=== PATIENT | female | born 1975 | race Caucasian/White ===

== ENCOUNTER 2020-05-19 11:59 | Outpatient (CLI) | payer OTHER, SELFPAY ==
[2020-05-19 12:17] LABS: Hematocrit 40.9 % (35.0-49.0); Hemoglobin 13.9 g/dL (12.0-15.0); Mean Corpuscular Hemoglobin 31.6 pg (27.0-31.0); Mean Platelet Volume 10.6 fl (9.2-11.8); Platelet Count Result 247 K/mm3 (150-420); White Blood Count 5.1 K/mm3 (4.8-10.8)
[2020-05-19 12:24] LABS: Basophils Absolute Auto 0.03 K/mm3 (0.00-0.10); Basophils Percent Auto 0.6 % (0.0-1.0); Eosinophils Absolute Auto 0.24 K/mm3 (0.02-0.50); Eosinophils Percent Auto 4.6 % (1.0-6.0); Immature Granulocyte Absolute 0.01 K/mm3 (0.00-0.00); Immature Granulocyte Percent A 0.2 % (0.0-0.0); Lymphocytes Absolute Auto 1.45 K/mm3 (1.10-4.50); Lymphocytes Percent Auto 27.8 % (18.0-42.0); Monocytes Absolute Auto 0.38 K/mm3 (0.10-0.90); Monocytes Percent Auto 7.3 % (2.0-11.0); Neutrophils Absolute Auto 3.1 K/mm3 (1.7-7.2); Neutrophils Percent Auto 59.5 % (50.0-70.0)
[2020-05-19 13:01] LABS: Alanine Aminotransferase 23 U/L (14-59); Albumin Level 3.8 g/dL (3.4-5.0); Alkaline Phosphatase 77 U/L (46-116); Anion Gap 10 mmol/L (8-16); Aspartate Amino Transferase 14 U/L (15-37); Bilirubin,Total 0.4 mg/dL (0.00-1.00); Blood Urea Nitrogen 11 mg/dL (7-18); Calcium 8.6 mg/dL (8.5-10.1); Carbon Dioxide 27 mmol/L (21-32); Chloride 106 mmol/L (98-108); Cholesterol 178 mg/dL (0-200); Estimated Glomerular Filt Rate > 60; Glucose 91 mg/dL (70-99); HDL Direct 55 mg/dL (40-60); Iron 80 ug/dL (50-170); LDL Cholesterol Calculated 103 mg/dL (<130); Osmolality Calculated 295 mOsm/kg (285-295); Percent Iron Saturation 31 % (12-57); Potassium 3.6 mmol/L (3.5-5.1); Sodium 143 mmol/L (136-145); Total Protein 6.5 g/dL (6.4-8.2); Triglycerides 102 mg/dL (0-150)
[2020-05-19 17:44] LABS: Platelet Estimate Adequate (Adequate)
== END 2020-05-19 12:00 | disposition home or self-care (01) ==
LOC: CHSLAB 12:01
PROVIDERS: PCP Family Medicine; Visit Provider Family Medicine
DX: M79.604 Pain in right leg (principal); M79.605 Pain in left leg; I10 Essential (primary) hypertension
CPT/HCPCS: 36415; 80053; 80061; 83540; 83550; 84443; 85025

== ENCOUNTER 2021-03-15 21:50 | Emergency (ER) | payer OTHER, SELFPAY ==
--- NOTE | ~2021-03-15 | XR_ITS ---
EXAMINATION: XR ribs RT 2V w CXR 2V DATE: 03/15/2021 22:25 INDICATION: Right chest pain. Fall. TECHNIQUE: Frontal and lateral views of the chest and 2 views of the right ribs on 3 radiographs were obtained. COMPARISON: None. FINDINGS: CHEST TWO VIEWS: Calcified right lung nodules are consistent with old granulomatous disease. No pleur al effusion or pneumothorax. The heart size is normal. RIGHT RIBS: There is no rib fracture. IMPRESSION: 1. No rib fracture. Reviewed, dictated and finalized at location A. IMPRESSION: 1. No rib fracture.
[2021-03-15 21:52] VITALS: BP 202/113; PULSE 88; RESP 16; TEMP 36.6; O2SAT 98
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
[2021-03-15 22:50] VITALS: BP 176/92; PULSE 84; RESP 16; O2SAT 98
== END 2021-03-15 22:50 | disposition home or self-care (01) ==
PROVIDERS: Emergency Provider Emergency Medicine; PCP Family Medicine
DX: S29.011A Strain of muscle and tendon of front wall of thorax, initial encounter (principal); I10 Essential (primary) hypertension; F17.210 Nicotine dependence, cigarettes, uncomplicated; V00.848A Other accident with standing micro-mobility pedestrian conveyance, initial encounter
CPT/HCPCS: 71046; 71100; 99283

== ENCOUNTER 2021-06-01 18:39 | Emergency (ER) | payer OTHER, SELFPAY ==
[2021-06-01 19:01] VITALS: BP 185/114; PULSE 87; RESP 18; TEMP 36.9; O2SAT 99
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
[2021-06-01] MEDS: DOXYCYCLINE HYCLATE 100 MG TABLET PO (19:21)
[2021-06-01] MEDS: TETANUS,DIPHTHERIA,AC PERTUSSIS ADULT 0.5 ML (ADACEL) IM (19:22)
== END 2021-06-01 19:26 | disposition home or self-care (01) ==
PROVIDERS: Emergency Provider Emergency Medicine; PCP Family Medicine
DX: S91.301A Unspecified open wound, right foot, initial encounter (principal); N89.8 Other specified noninflammatory disorders of vagina
CPT/HCPCS: 90471; 90715; 99283; A9270

== ENCOUNTER 2021-09-18 17:51 | Emergency (ER) | payer OTHER, SELFPAY ==
[2021-09-18 18:26] VITALS: BP 169/113; PULSE 90; RESP 18; TEMP 36.9; O2SAT 98
--- NOTE | 2021-09-18 19:08 | PC.NURSE ---
Report given to ALEXANDRIA Hollins
--- NOTE | 2021-09-18 19:16 | ED.WOUNDLAC ---
HPI - Wound/Laceration General Chief Complaint: Wound/Laceration Stated Complaint: scratched foot Time Seen by Provider: 09/18/21 17:53 Source: patient and RN notes reviewed Mode of arrival: ambulatory Limitations: no limitations History of Present Illness Onset (ago): day(s) (3) Context: accidental and sharp object use Associated symptoms: pain Related Data Allergies Allergy/AdvReac Type Severity Reaction Status Date / Time penicillin G Allergy Severe mouth and Verified 09/18/21 18:31 throat swell latex Allergy Intermediate Unknown Verified 09/18/21 18:31 levofloxacin [Levaquin] Allergy Intermediate Unknown Verified 09/18/21 18:31 Penicillins Allergy Intermediate Unknown Verified 09/18/21 18:31 Iodinated Contrast Media Allergy Mild sneezing, Verified 09/18/21 18:31 stuffy head Sulfa (Sulfonamide Allergy Mild Nausea and Verified 09/18/21 18:31 Antibiotics) Vomiting mupirocin Allergy Rash Verified 09/18/21 18:31 leviquin Allergy Severe throat Uncoded 06/11/21 10:59 swells Sulfonamides Allergy Intermediate Unknown Uncoded 06/11/21 10:59 Review of Systems Review of Systems: All systems reviewed & are unremarkable except as noted in HPI and below PMFSH Past Medical History Medical History Cellulitis of foot JANAE (generalized anxiety disorder) Hypertension Nicotine dependence Nicotine dependence, cigarettes, with unspecified nicotine-induced disorders Surgical History Surgical History No history of previous surgery Family History Family History Mother Hypertension COPD (chronic obstructive pulmonary disease) JANAE (generalized anxiety disorder) Social History Social History Smoking status: Current every day smoker Additional living arrangements comments: . Gender identity (if verbalized by the patient): Female Exam Const: General: no acute distress and alert Nutritional Appearance: thin Orientation/consciousness: patient oriented x3 Limitations: no limitations HENMT: Head: normal to inspection Ears: external ears normal, TM's normal bilaterally and EAC's normal General nose exam: Normal external nose present and Normal nares present Mouth: Yes moist mucous membranes Throat: posterior oropharynx normal Eyes: Conjunctivae: conjunctivae normal Pupils: Equal, round and reactive pupils present EOM: EOMs intact bilaterally Neck: Neck: normal visual inspection and no lymphadenopathy Other: neck was supple Chest: Chest palpation & inspection: normal inspection of the chest Resp: Effort & Inspection: normal respiratory effort Auscultation: clear to auscultation bilaterally Cardio: Rate: regular rate Rhythm: regular rhythm GI: GI Palp: Yes Soft to palpation and No Tenderness to palpation present (GI) Auscultation: normal bowel sounds Back/Spine/Pelvis: Back: no CVA tenderness Skin: General skin exam: normal color Rashes: no rashes Neuro: General: patient oriented x3, moves all extremities, no meningeal signs, no focal motor deficits and CN's II-XI intact bilaterally Extrem: General: no pedal edema Other: dorsal left foot 5cm superficial linear healing laceration with mild redness and minimal swelling Psych: Appearance: grossly normal and well kempt Mental Status: mental status grossly normal Affect: normal affect Attitude: cooperative Thought content: Yes Normal thought content present Course Course Emergency Course: Pt was stable in the ED with less pain Reevaluation(s) Reevaluation #1: VSS. Dressed left foot. Date: 09/18/21 Time: 18:50 Vital Signs Vital signs: Vital Signs Temperature 36.9 C 09/18/21 18:26 Pulse Rate 90 09/18/21 18:26 Respiratory Rate 18 09/18/21 18:26 Blood Pressure 169/113 H 09/18/21 18:26 Pulse O
[2021-09-18] MEDS: KETOROLAC (*BKC) 60 MG/2 ML VIAL IM (19:25)
[2021-09-18] MEDS: ACETAMINOPHEN 325 MG TABLET 650 MG PO (19:34)
[2021-09-18] MEDS: TETANUS,DIPHTHERIA,AC PERTUSSIS ADULT 0.5 ML (ADACEL) IM (19:34)
--- NOTE | 2021-09-18 20:00 | PC.NURSE ---
pt refusing an IV at this time. ALEXANDRIA Ingram attempted twice to start an IV. MD Mina informed that pt is refusing an IV at this time.
--- NOTE | 2021-09-18 20:07 | PC.NURSE ---
pt refused to allow this staff member to clean the wound on the pt's left foot. pt stated, I will clean it when I get home. I have been keeping it clean. MD Mina informed that the pt refused to allow this staff member to clean the wound on her left foot and that the pt stated that she would clean the wound when she gets home.
--- NOTE | 2021-09-18 20:11 | PC.NURSE ---
Sameer Whitaker informed this staff member that the pt has agreed to have the wound of her left foot cleaned.
[2021-09-18 20:33] VITALS: BP 181/102; PULSE 90
[2021-09-18] MEDS: cloNIDine HCL 0.2 MG TABLET PO (20:33)
[2021-09-18 21:00] VITALS: BP 158/85; PULSE 80
[2021-09-18 21:01] VITALS: BP 158/85; PULSE 80; RESP 18; TEMP 36.8; O2SAT 98
== END 2021-09-18 21:03 | disposition home or self-care (01) ==
PROVIDERS: Emergency Provider Emergency Medicine
DX: L03.116 Cellulitis of left lower limb (principal)
CPT/HCPCS: 90471; 90715; 96372; 99283; A9270; J1885

== ENCOUNTER 2022-02-13 21:12 | Observation (INO) | payer OTHER, SELFPAY ==
--- NOTE | ~2022-02-13 | CT_ITS ---
EXAMINATION: CT ankle LT wo con DATE: 02/14/2022 01:00 INDICATION: Left ankle pain and swelling. Possible septic joint. TECHNIQUE: Computed tomography (CT) of the left ankle was performed without intravenous contrast. The dose-length product was 623.80 mGy-cm. Automated exposure control and iterative reconstruction techn ique were employed. COMPARISON: Left ankle series dated 02/14/2022 FINDINGS: There is moderate soft tissue edema/swelling along the lateral aspect of the ankle. No disc rete walled off fluid collection is identified, although evaluation is limited without contrast. No f ocal erosive changes. No fracture or traumatic malalignment. No periosteal reaction. IMPRESSION: 1. No acute abnormality of the left ankle. No evidence for osteomyelitis. If there is continued clini britt concern for osteomyelitis, further evaluation with MRI recommended. 2: Moderate lateral soft tissue swelling. Reviewed, dictated and finalized at location L. IMPRESSION: 1. No acute abnormality of the left ankle. No evidence for osteomyelitis. If th ere is continued clinical concern for osteomyelitis, further evaluation with MR I recommended. 2: Moderate lateral soft tissue swelling.
--- NOTE | ~2022-02-13 | XR_ITS ---
XR ankle LT min 3V DATE: 02/13/2022 21:50 INDICATION: Swelling ankle injury TECHNIQUE: 4 views COMPARISON: None FINDINGS: There is moderately prominent lateral soft tissue swelling. No fracture or dislocation of the ankle or disruption of the ankle mortise. Plantar calcaneal enthesopathy. IMPRESSION: Lateral soft tissue swelling; no fracture or dislocation of the ankle or disruption of an kle mortise Reviewed, dictated and finalized at location A. IMPRESSION: Lateral soft tissue swelling; no fracture or dislocation of the ank le or disruption of ankle mortise
[2022-02-13 21:16] VITALS: BP 198/97; PULSE 100; RESP 22; TEMP 37.5; O2SAT 100
--- NOTE | 2022-02-13 21:37 | ED.LOWEXIN ---
HPI - Extremity Injury (Lower) General Chief Complaint: Extremity Injury, Lower <CORINA Roblero Last Filed: 02/14/22 02:50> Stated Complaint: left ankle pain <CORINA Roblero Last Filed: 02/14/22 02:50> Time Seen by Provider: 02/13/22 21:14 <CORINA Roblero Last Filed: 02/14/22 02:50> History of Present Illness HPI Narrative: Patient is a 46-year-old female here for evaluation of left ankle pain x 1 day. Patient states that she got her foot stuck in a door about 3 weeks ago that left a scrape on her medial ankle. States that she has been ambulatory since that incident, but over the past 24 hours, the ankle has become swollen, irritated, and she cannot bear weight on the foot. States that even slight movement is unbearable. She has been taking ibuprofen without relief. Reports chills but denies nausea, vomiting. she is not a diabetic, denies IV drug use. <CORINA Roblero Last Filed: 02/14/22 02:50> Related Data Home Medications: Home Medications Medication Instructions Recorded Confirmed albuterol sulfate 90 mcg/actuation 90 mcg inhalation Q4-6H PRN 02/14/22 02/14/22 aerosol inhaler Shortness Of Breath Or Wheezing lisinopril 40 mg tablet 40 mg PO DAILY 02/14/22 02/14/22 <CORINA Roblero Last Filed: 02/14/22 02:50> Allergies/Adverse Reactions: Allergies Allergy/AdvReac Type Severity Reaction Status Date / Time penicillin G Allergy Severe mouth and Verified 02/14/22 02:56 throat swell latex Allergy Intermediate Unknown Verified 02/14/22 02:56 levofloxacin [Levaquin] Allergy Intermediate Unknown Verified 02/14/22 02:56 Penicillins Allergy Intermediate Unknown Verified 02/14/22 02:56 Iodinated Contrast Media Allergy Mild sneezing, Verified 02/14/22 02:56 stuffy head mupirocin Allergy Rash Verified 02/14/22 02:56 Sulfa (Sulfonamide AdvReac Mild Nausea and Verified 02/14/22 02:59 Antibiotics) Vomiting <Maria Del Carmen Israel PA-C - Last Filed: 02/14/22 02:50> Review of Systems Review of Systems: Gen: Reports chills Eyes: Denies eye pain or visual change ENT: Denies congestion Respiratory: Denies shortness of breath or cough CV: Denies chest pain or palpitations GI: Denies abdominal pain nausea, emesis or diarrhea denies burning, urgency, frequency or hematuria Musculoskeletal: Reports left ankle pain. Neuro: Denies numbness, tingling, weakness or focal weakness Skin: Reports redness Except as documented, all other systems reviewed and negative <Maria Del Carmen Israel PA-C - Last Filed: 02/14/22 02:50> [facility] Past Medical History Medical History: Medical History Cellulitis of foot JANAE (generalized anxiety disorder) Hypertension Nicotine dependence Nicotine dependence, cigarettes, with unspecified nicotine-induced disorders <Maria Del Carmen Israel PA-C - Last Filed: 02/14/22 02:50> Surgical History Surgical History: Surgical History No history of previous surgery <Maria Del Carmen Israel PA-C - Last Filed: 02/14/22 02:50> Family History Family History: Family History (Updated 02/14/22 @ 02:20 by Maikol Azar RN) Mother JANAE (generalized anxiety disorder) COPD (chronic obstructive pulmonary disease) Hypertension Father Hypertension Lung cancer Bone cancer Brain tumor <Maria Del Carmen Israel PA-C - Last Filed: 02/14/22 02:50> Social History Social History: Social History Smoking packs per day: 1 Smoking cigarettes per day: 20.0 Years smoked: 26 Smoking pack-years: 26.00 Smoking status: Current every day smoker Tobacco type: cigarettes Second hand tobacco smoke exposure: Yes Alcohol intake: current Drinks per week: 1 Substance use: current Substance
[2022-02-13 22:02] LABS: Basophils Percent Auto 0.2 % (0.2-1.2); Eosinophils Absolute Auto 0.1 K/mm3 (0-0.3); Eosinophils Percent Auto 0.7 % (0-4.4); Hematocrit 45.7 % (37.0-47.0); Hemoglobin 15.4 g/dL (12.0-15.0); Immature Granulocyte Absolute 0.06 K/mm3 (0.00-0.031); Immature Granulocyte Percent A 0.4 % (0-0.5); Lymphocytes Absolute Auto 0.75 K/mm3 (0.9-3.2); Lymphocytes Percent Auto 4.5 % (18.3-44.2); Mean Corpuscular HGB Conc 33.7 g/dl (32-36); Mean Corpuscular Hemoglobin 30.9 pg (26-34); Mean Corpuscular Volume 91.6 fl (80-100); Mean Platelet Volume 10.7 fl (7.4-10.4); Monocytes Absolute Auto 1.1 K/mm3 (0.1-0.6); Monocytes Percent Auto 6.5 % (2.6-8.5); Neutrophils Absolute Auto 14.7 K/mm3 (1.3-6.7); Neutrophils Percent Auto 87.7 % (45.5-73.1); Platelet Count Result 246 k/mm3 (150-375); Red Blood Count 4.99 M/mm3 (4.2-5.4); Red Cell Distribution Width 12.8 % (11.5-14.5); White Blood Count 16.7 K/mm3 (4.5-10.0)
[2022-02-13 22:09] LABS: Lactic Acid Reflex 2.1 mmol/L (0.7-2.0)
[2022-02-13 22:14] LABS: Alanine Aminotransferase 15 U/L (6-35); Albumin Level 3.9 g/dL (3.5-5.1); Alkaline Phosphatase 88 U/L (38-126); Anion Gap 8 mmol/L (8-16); Aspartate Amino Transferase 21 U/L (14-36); Bilirubin,Total 0.4 mg/dL (0.2-1.3); Blood Urea Nitrogen 14 mg/dL (7-17); CRP 2.6 mg/dL (<1.0); Calcium 8.2 mg/dL (8.4-10.2); Carbon Dioxide 22 mmol/L (22-30); Chloride 106 mmol/L (98-107); Estimated CRCL calculation 69 ml/min; Estimated Glomerular Filt Rate > 60; Glucose 132 mg/dL (65-110); Potassium 3.4 mmol/L (3.4-5.0); Sodium 136 mmol/L (137-145)
[2022-02-13] MEDS: SODIUM CHLORIDE 0.9% IV 1,000 ML 999 ML IV CONT (22:34)
[2022-02-13 22:37] LABS: Erythrocyte Sedimentation Rate 10 mm/hr (0-20)
[2022-02-14] VITALS (8 sets, daily range): BP systolic 134–184; BP diastolic 85–99; PULSE 73–94; RESP 16–18; TEMP 37.2–37.7; O2SAT 98–100; BMI 21.6
[2022-02-14] MEDS: SODIUM CHLORIDE 0.9% IV 1,000 ML 999 ML IV CONT (00:35)
[2022-02-14 00:46] LABS: SARS-CoV-2 RNA PCR Negative
[2022-02-14 00:58] LABS: Reflex Lactic Acid Yes or No Add Lactic
[2022-02-14 01:37] LABS: Lactic Acid 0.7 mmol/L (0.7-2.0)
--- NOTE | 2022-02-14 01:52 | PC.NURSE ---
0152: Received report from ED nurse Cony. Discussed elevated blood pressure and why lisinopril was discontinued. ED nurse said pt already took lisinopril blood pressure medication today and the hospitalists in ED are not concerned with elevated blood pressure at this time.
--- NOTE | 2022-02-14 02:09 | PC.NURSE ---
This patient, Elham Bennett, was admitted to 3 [facility] Surg Room 319-01. Patient/family oriented to hospital policies and general routines including ID bracelet, bed and alarms, visiting hours, pain management, procedures, bathroom and other care routines, personal items, smoking policy, room service/diet, and visiting hours. Information on how to activate the Rapid Response Team has been discussed. Patient/Family are encouraged to report perceived risks to care and to ask questions if they do not understand what they are told or what they should do.
[2022-02-14] MEDS: KETOROLAC 30 MG/ML VIAL (*BKC) IV PUSH ×2 (03:23→10:08)
[2022-02-14] MEDS: SODIUM CHLORIDE 0.9% IV 1,000 ML 125 ML IV CONT (03:23)
[2022-02-14] MEDS: hydrALAZINE HCL 20 MG/ML VIAL 10 MG IV PUSH (05:23)
--- NOTE | 2022-02-14 05:45 | PM.IMHP ---
H&P: HPI History of Present Illness Date/Time: 02/14/22 05:45 Chief Complaint: Left ankle pain Narrative: 46-year-old female with past medical history of essential hypertension who presented to the ER with left ankle pain. The patient reports that she slammed her ankle into a door at home 2 weeks ago. She had a small abrasion to the ankle at that time. She reports that for 5 days ago she began having some vague discomfort in her ankle. Then, on the she was using a riding lawn more and at that time started having increased pain and swelling to her lower extremity. The pain became so bad on the she could not bear weight or av any passive range of motion of her ankle. She had some erythema that it started on the and worsened on the . He associated swelling had also increased. She has not noticed any drainage from the wound. She denies any fevers but does note that the area is warm. Pain is worse with touching the area. She reported that after receiving Toradol last night it was her 1st time having complete pain relief from the ankle. However the pain returned when I was manipulating and touching the skin on the lateral ankle. She had had prior infection of the right lateral foot a couple of years ago after a laceration that took a while to heal. She denies any known history of MRSA infections. In the ER patient's blood pressures were noted to be markedly elevated. At the time of my evaluation the patient admits that she has not taken her blood pressure meds in the last 3-4 weeks. She reports that she ran out of refills. Last time she tried to go to her primary care physician she had run out of her state age. She now has a new Medicaid card but her physician will not accept her new Medicaid program card. A she has not found a new primary care physician and has difficulty with transportation. She denies any headaches or vision changes. She states that she has just given up. During my evaluation the patient became quite tearful and she stated that since her 3 years ago she is depressed. Her daughter has moved out and moved in with her grandparents next door. 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 She is under some multiple social stressors and states that she will not have a job after next month because her parents are moving to assisted living. The patient continues to smoke a pack of cigarettes per day and has no intention of quitting smoking. She has successfully quit 2 other times when she was with her children. She does report frequent smoker's cough but denies any shortness of breath or chest pain. She has not been vaccinated against COVID. Her COVID PCR in the ER was negative. She denies any fevers. She denies any decreased appetite, nausea, vomiting, no diarrhea or changes in bowel habits. Review of Systems Review of Systems: 12 systems were reviewed with pertinent positives and negatives per HPI. Except as documented in the HPI, all other systems were reviewed and are negative. [facility] Past Medical History Medical History (Updated 02/14/22 @ 08:17 by Liv Morin DO) Cellulitis of foot Depression (11/08/15) JANAE (generalized anxiety disorder) Hypertension Nicotine dependence, cigarettes, with unspecified nicotine-induced disorders Surgical History Surgical History (Updated 02/14/22 @ 08:05 by Liv Morin DO) History of endometrial ablation History of tonsillectomy and adenoidectomy Family History Family History Mother JANAE (generalized anxiety disorder) COPD (chronic obstructive pulmonary disease) Hypertension Father Hypertension Lung cancer Bone cancer Brain tumor Social History Social History (Updated 02/14/22 @ 08:07 by Liv Morin DO) Smoking packs per day: 1 Smoking cigarettes per day: 20.0 Years smoked: 26 Smoking pack
[2022-02-14 06:21] LABS: Hematocrit 42.9 % (37.0-47.0); Hemoglobin 14.9 g/dL (12.0-15.0); Mean Corpuscular HGB Conc 34.7 g/dl (32-36); Mean Corpuscular Hemoglobin 31.4 pg (26-34); Mean Corpuscular Volume 90.5 fl (80-100); Mean Platelet Volume 10.8 fl (7.4-10.4); Platelet Count Result 193 k/mm3 (150-375); Red Blood Count 4.74 M/mm3 (4.2-5.4); Red Cell Distribution Width 12.7 % (11.5-14.5); White Blood Count 15.2 K/mm3 (4.5-10.0)
[2022-02-14 06:28] LABS: Anion Gap 5 mmol/L (8-16); Blood Urea Nitrogen 9 mg/dL (7-17); Calcium 7.5 mg/dL (8.4-10.2); Carbon Dioxide 19 mmol/L (22-30); Chloride 110 mmol/L (98-107); Estimated CRCL calculation 90 ml/min; Estimated Glomerular Filt Rate > 60; Glucose 122 mg/dL (65-110); Sodium 134 mmol/L (137-145)
[2022-02-14] MEDS: POTASSIUM CHLORIDE 20 MEQ PACKET (FOR LIQUID) 40 MEQ PO (08:52)
[2022-02-14] MEDS: lisinopriL 20 MG TABLET 40 MG PO (08:52)
[2022-02-14] MEDS: ENOXAPARIN 40 MG/0.4 ML SYRINGE SUB-Q (08:53)
--- NOTE | 2022-02-14 10:42 | PM.IMPN ---
Progress Note: A&P Assessment and Plan (1) Cellulitis of left ankle: Code(s): L03.116 - Cellulitis of left lower limb Status: Acute Assessment and Plan: On empiric antibiotic therapy with vancomycin.? Orthopedic surgery has been consulted for evaluation. CT without discrete fluid collection.? Pain medications with IV toradol. She is refusing Morphine. Will add gabapentin 100 mg TID. Elevate LE for swelling control. Warm compress to left ankle for pain and potentially withdraw purulent discharge. (2) Sepsis: Qualifiers: Sepsis acute organ dysfunction status: without acute organ dysfunction Sepsis type: sepsis due to unspecified organism Qualified Code(s): A41.9 - Sepsis, unspecified organism Code(s): A41.9 - Sepsis, unspecified organism Status: Acute Assessment and Plan: Sepsis criteria met on admission with tachycardia, tachypnea, leukocytosis and lactic acidosis.? Lactic acidosis has resolved as well his tachycardia and tachypnea.? Blood cultures are pending.? Continue antibiotic therapy with vancomycin. (3) Uncontrolled hypertension: Code(s): I10 - Essential (primary) hypertension Status: Acute Assessment and Plan: Continued on lisinopril. PRN hydralazine for SBP>170. May have some pain component. (4) Acute hypokalemia: Code(s): E87.6 - Hypokalemia Status: Acute Assessment and Plan: Potassium supplementation with 40 mEq p.o. x1 today. Repeat BMP tomorrow and supplement as needed. (5) Depression: Onset Date: 11/08/15 Qualifiers: Depression Type: major depressive disorder Major depression recurrence: unspecified whether recurrent Active/Remission status: currently active Major depression episode severity: severe Psychotic features: without psychotic features Qualified Code(s): F32.2 - Major depressive disorder, single episode, severe without psychotic features Code(s): F32.A - Depression, unspecified Status: Acute Assessment and Plan: Antidepressant therapy was offered to the patient.? She states that she would him know weight of follow-up with a counselor or primary care provider her regarding continuing depression medications as she has no transportation. May be worse secondary to pain. Plan Disposition: Home when medically stable. Estimated LOS: 3 days CODE STATUS: FULL CODE Time Spent With Patient Time with patient: 15 - 25 minutes Subjective Date/time seen: 02/14/22 10:42 Patient c/o severe pain to left ankle. It is severe when touched. She is notably tearful and restless in bed, grabbing at her left leg. She reports Toradol helps her pain and does not want to use any narcotics. Review of Systems Review of Systems: All systems reviewed & are unremarkable except as noted in HPI and below Exam Narrative: General: Moderate distress.? Well-developed adult female lying in bed holding onto left leg. Mental Status/Psych: Awake, alert and oriented to person and place with clear speech. Anxious mood and affect. Cooperative with examination. Skin: Fair, warm, and dry. Left lateral malleolus with irregularly shaped, circular lesion, wound bed with black/brown eschar, surrounding skin with moderate erythema, very tender and hot to touch. +3 nonpitting edema to ankle and foot. Medial mid-lower extremity with 2 superficial abrasions with mild surrounding erythema. HEENT: Normocephalic. Conjunctivae are clear. Sclera is non-icteric. EOM intact. PERRL. Grossly normal hearing. Oral mucosa pink and moist. Tongue midline. Oropharynx within normal limits. Neck: Supple. Trachea midline. No JVD. Heart: S1 and S2 regular rate and rhythm. No murmurs, gallops, or rubs auscultated. Chest: Respirations even and unlabored. Lung sounds are clear to auscultation in all lobes bilaterally without wheezes, rhonchi, or rales. Abdomen: Soft, round and non-tender to palpation.?
[2022-02-14] MEDS: GABAPENTIN 100 MG CAPSULE PO ×2 (12:33→17:04)
--- NOTE | 2022-02-14 14:11 | PM.CNOR ---
Assessment and Plan Assessment and plan (1) Cellulitis of left ankle: Code(s): L03.116 - Cellulitis of left lower limb Status: Acute (2) Sepsis: Qualifiers: Sepsis acute organ dysfunction status: without acute organ dysfunction Sepsis type: sepsis due to unspecified organism Qualified Code(s): A41.9 - Sepsis, unspecified organism Code(s): A41.9 - Sepsis, unspecified organism Status: Acute Plan Cellulitis left lower extremity. Soft tissue crush injury 1 week ago. Discussed the case with the hospitalist. I recommend continued IV antibiotics and elevation. No surgery indicated. She may bear full weight. Will continue to follow. History of Present Illness HPI Consult date: 02/14/22 Chief complaint: cellulitis Narrative: 46-year-old female presents with exquisite left ankle pain. Symptoms began one week ago. Her leg was crushed and trapped in a door. She had abrasions medially and laterally at the malleoli. She was able to bear full weight. Pain was well controlled. She remained quite active. Yesterday she was mowing the grass and felt dramatic increase in pain. This increased overnight. She was admitted through the emergency room with exquisite ankle pain redness and swelling. Infection markers were elevated. Sepsis criteria met. Tachycardia, tachypnea, leukocytosis and lactic acidosis. Blood cultures are pending. Patient started on vancomycin. She has multiple antibiotic allergies. Review of Systems Review of Systems: 12 systems were reviewed with pertinent positives and negatives per HPI. Except as documented in the HPI, all other systems were reviewed and are negative. Smoking history. Hypertension. [facility] Past Medical History Medical History (Updated 02/14/22 @ 08:17 by Liv Morin DO) Cellulitis of foot Depression (11/08/15) JANAE (generalized anxiety disorder) Hypertension Nicotine dependence, cigarettes, with unspecified nicotine-induced disorders Surgical History Surgical History (Updated 02/14/22 @ 08:05 by Liv Morin DO) History of endometrial ablation History of tonsillectomy and adenoidectomy Family History Family History Mother JANAE (generalized anxiety disorder) COPD (chronic obstructive pulmonary disease) Hypertension Father Hypertension Lung cancer Bone cancer Brain tumor Social History Social History (Updated 02/14/22 @ 08:07 by Liv Morin DO) Smoking packs per day: 1 Smoking cigarettes per day: 20.0 Years smoked: 26 Smoking pack-years: 26.00 Smoking status: Current every day smoker Tobacco type: cigarettes Second hand tobacco smoke exposure: Yes Additional smoking assessment comments: She has smoked 1 pack of cigarettes per day since age 18. Alcohol intake: current Drinks per week: 1 Substance use: current Substance use type: does not use Living arrangements: alone Additional living arrangements comments: She is been since 2019. She has 2 children. Her daughter moved out when her and her daughter now lives with her grandparents. 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 Her parents are planning to moved to assisted living March 2022. Gender identity (if verbalized by the patient): Female Spiritual care concerns: No Meds Home Medications and Allergies Home Medications Medication Instructions Recorded Confirmed Type albuterol sulfate 90 mcg/actuation 90 mcg inhalation Q4-6H PRN 02/14/22 02/14/22 History aerosol inhaler Shortness Of Breath Or Wheezing lisinopril 40 mg tablet 40 mg PO DAILY 02/14/22 02/14/22 History Allergies Allergy/AdvReac Type Severity Reaction Status Date / Time penicillin G Allergy Severe mouth and Verified 02/14/22 02:56 throat swell latex Allergy Intermediate Unknown Verified 02/14/22 02:56 levofloxacin [Levaquin] Aller
[2022-02-15] VITALS (7 sets, daily range): BP systolic 119–147; BP diastolic 77–79; PULSE 52–72; RESP 14–18; TEMP 36.8–37.9; O2SAT 96–100
[2022-02-15] MEDS: MORPHINE SULFATE (*CRX) 2 MG/ML INJ IV PUSH (03:24)
[2022-02-15] MEDS: ACETAMINOPHEN 325 MG TABLET 650 MG PO ×2 (05:31→17:46)
[2022-02-15 06:49] LABS: Basophils Percent Auto 0.2 % (0.2-1.2); Eosinophils Absolute Auto 0.2 K/mm3 (0-0.3); Eosinophils Percent Auto 1.2 % (0-4.4); Hematocrit 40.2 % (37.0-47.0); Immature Granulocyte Absolute 0.08 K/mm3 (0.00-0.031); Immature Granulocyte Percent A 0.6 % (0-0.5); Lymphocytes Absolute Auto 0.92 K/mm3 (0.9-3.2); Lymphocytes Percent Auto 6.7 % (18.3-44.2); Mean Corpuscular HGB Conc 34.8 g/dl (32-36); Mean Corpuscular Hemoglobin 31.6 pg (26-34); Mean Corpuscular Volume 90.7 fl (80-100); Mean Platelet Volume 10.9 fl (7.4-10.4); Monocytes Absolute Auto 1.4 K/mm3 (0.1-0.6); Monocytes Percent Auto 9.9 % (2.6-8.5); Neutrophils Absolute Auto 11.2 K/mm3 (1.3-6.7); Neutrophils Percent Auto 81.4 % (45.5-73.1); Platelet Count Result 179 k/mm3 (150-375); Red Blood Count 4.43 M/mm3 (4.2-5.4); White Blood Count 13.8 K/mm3 (4.5-10.0)
[2022-02-15 06:58] LABS: Anion Gap 3 mmol/L (8-16); Blood Urea Nitrogen 9 mg/dL (7-17); Calcium 7.7 mg/dL (8.4-10.2); Carbon Dioxide 24 mmol/L (22-30); Chloride 107 mmol/L (98-107); Estimated CRCL calculation 78 ml/min; Estimated Glomerular Filt Rate > 60; Glucose 124 mg/dL (65-110); Potassium 3.3 mmol/L (3.4-5.0); Sodium 134 mmol/L (137-145)
[2022-02-15] MEDS: lisinopriL 20 MG TABLET 40 MG PO (08:22)
[2022-02-15] MEDS: GABAPENTIN 100 MG CAPSULE PO ×3 (08:22→16:34)
--- NOTE | 2022-02-15 10:20 | PM.IMPN ---
Progress Note: A&P Assessment and Plan (1) Cellulitis of left ankle: Code(s): L03.116 - Cellulitis of left lower limb Status: Acute Assessment and Plan: On empiric antibiotic therapy with vancomycin.?Pharmacy to dose. Trough 6 today. Orthopedic surgery has been consulted for evaluation and no orthopedic surgery indicated. CT without discrete fluid collection noted.? Pain medications with IV toradol, gabapentin 100 mg TID, and PRN morphine Elevate LE for swelling control. Warm compress to left ankle for pain and potentially withdraw purulent discharge. (2) Sepsis: Qualifiers: Sepsis acute organ dysfunction status: without acute organ dysfunction Sepsis type: sepsis due to unspecified organism Qualified Code(s): A41.9 - Sepsis, unspecified organism Code(s): A41.9 - Sepsis, unspecified organism Status: Acute Assessment and Plan: Sepsis criteria met on admission with tachycardia, tachypnea, leukocytosis and lactic acidosis.? Lactic acidosis has resolved as well his tachycardia and tachypnea.? Blood cultures are pending.? Continue antibiotic therapy with vancomycin. (3) Uncontrolled hypertension: Code(s): I10 - Essential (primary) hypertension Status: Acute Assessment and Plan: Continued on lisinopril. PRN hydralazine for SBP>170. May have some pain component. BP improved today. (4) Acute hypokalemia: Code(s): E87.6 - Hypokalemia Status: Acute Assessment and Plan: Potassium supplementation with 40 mEq p.o. x1 today. Repeat BMP tomorrow and supplement as needed. (5) Depression: Onset Date: 11/08/15 Qualifiers: Active/Remission status: currently active Depression Type: major depressive disorder Major depression episode severity: severe Major depression recurrence: unspecified whether recurrent Psychotic features: without psychotic features Qualified Code(s): F32.2 - Major depressive disorder, single episode, severe without psychotic features Code(s): F32.A - Depression, unspecified Status: Acute Assessment and Plan: Antidepressant therapy was offered to the patient.? She states that she would him know weight of follow-up with a counselor or primary care provider her regarding continuing depression medications as she has no transportation. May be worse secondary to pain. Consult care coordination for community resources. Plan Disposition: Home when medically stable. Estimated LOS: 3 days CODE STATUS: FULL CODE Time Spent With Patient Time with patient: 15 - 25 minutes Subjective Date/time seen: 02/15/22 10:20 Patient continues to complain of right leg pain. She reports temp 100.2F this morning with some sweating following. She is tearful and wants to go home today. She reports some family issues that she needs to take care of. We discussed in length the concern for worsening infection and need for IV antibiotics at this time. Review of Systems Review of Systems: All systems reviewed & are unremarkable except as noted in HPI and below Exam Narrative: General: Moderate distress.? Well-developed adult female lying in bed. Mental Status/Psych: Awake, alert and oriented to person and place with clear speech. Anxious mood and affect. Tearful. Skin: Fair, warm, and dry. Left lateral malleolus with irregularly shaped, circular lesion, wound bed with yellow/brown eschar, surrounding skin with moderate erythema, very tender and hot to touch. +2 nonpitting edema to ankle and foot. Medial mid-lower extremity with 2 superficial abrasions without erythema. HEENT: Normocephalic. Sclera is non-icteric. Pupils equal and round. Grossly normal hearing. Oral mucosa pink and moist. Tongue midline. Neck: Supple. Trachea midline. No JVD. Heart: S1 and S2 regular rate and rhythm. No murmurs, gallops, or rubs auscultated. Chest: Respirations even and unlabored. Lung sounds a
--- NOTE | 2022-02-15 11:49 | PC.NURSE ---
vancomycin trough 6.0
--- NOTE | 2022-02-15 11:49 | PC.NURSE ---
informed pharmacist that vancomycin trough resulted
[2022-02-15] MEDS: POTASSIUM CHLORIDE 20 MEQ TABLET 40 MEQ PO (16:34)
--- NOTE | 2022-02-15 18:08 | PC.NURSE ---
tums prn and protonix ordered for pt per MD Nathan, reported pt c/o burning and cramping in abdominal area, stated stress ulcer.
[2022-02-16 05:41] VITALS: BP 148/81; PULSE 73; RESP 18; TEMP 36.7; O2SAT 99
[2022-02-16 06:42] LABS: Basophils Percent Auto 0.3 % (0.2-1.2); Eosinophils Absolute Auto 0.3 K/mm3 (0-0.3); Eosinophils Percent Auto 2.7 % (0-4.4); Hematocrit 43.4 % (37.0-47.0); Hemoglobin 14.2 g/dL (12.0-15.0); Immature Granulocyte Absolute 0.04 K/mm3 (0.00-0.031); Immature Granulocyte Percent A 0.4 % (0-0.5); Lymphocytes Absolute Auto 0.88 K/mm3 (0.9-3.2); Lymphocytes Percent Auto 8.7 % (18.3-44.2); Mean Corpuscular HGB Conc 32.7 g/dl (32-36); Mean Corpuscular Hemoglobin 30.8 pg (26-34); Mean Corpuscular Volume 94.1 fl (80-100); Mean Platelet Volume 10.9 fl (7.4-10.4); Monocytes Absolute Auto 0.7 K/mm3 (0.1-0.6); Neutrophils Absolute Auto 8.2 K/mm3 (1.3-6.7); Neutrophils Percent Auto 80.9 % (45.5-73.1); Platelet Count Result 205 k/mm3 (150-375); Red Blood Count 4.61 M/mm3 (4.2-5.4); White Blood Count 10.1 K/mm3 (4.5-10.0)
[2022-02-16 06:56] LABS: Anion Gap 5 mmol/L (8-16); Blood Urea Nitrogen 10 mg/dL (7-17); Calcium 8.3 mg/dL (8.4-10.2); Carbon Dioxide 24 mmol/L (22-30); Chloride 109 mmol/L (98-107); Estimated CRCL calculation 90 ml/min; Estimated Glomerular Filt Rate > 60; Glucose 112 mg/dL (65-110); Potassium 3.7 mmol/L (3.4-5.0); Sodium 138 mmol/L (137-145)
[2022-02-16 07:50] VITALS: PULSE 73; RESP 18; O2SAT 99
[2022-02-16] MEDS: lisinopriL 20 MG TABLET 40 MG PO (08:21)
[2022-02-16] MEDS: PANTOPRAZOLE SODIUM IV 40 MG VIAL IV PUSH (08:21)
[2022-02-16] MEDS: GABAPENTIN 100 MG CAPSULE PO (08:21)
[2022-02-16] MEDS: ENOXAPARIN 40 MG/0.4 ML SYRINGE SUB-Q (08:24)
--- NOTE | 2022-02-16 08:47 | PC.NURSE ---
called Claire, informed pt inquiring about discharge. Claire to round on pt, possible discharge this afternoon.
--- NOTE | 2022-02-16 10:22 | PM.DS ---
DS: Admitting Diagnosis Discharge Date 02/16/2022 1027 Admitting Diagnosis Left ankle cellulitis Sepsis Uncontrolled hypertension Nicotine dependence Depression Hypokalemia DS: Discharge Diagnosis Discharge Diagnosis (1) Cellulitis of left ankle: Code(s): L03.116 - Cellulitis of left lower limb Status: Acute Assessment and Plan: Started on IV vancomycin with pharmacy to dose based on renal function. WBC 15 on admission. Orthopedic surgery has been consulted for evaluation and no orthopedic surgery indicated. CT without discrete fluid collection noted.? Pain was treated with PRN PO tylenol, IV toradol PRN, gabapentin 100 mg TID scheduled, and PRN morphine IV. She did not want to take narcotics. Vancomycin trough prior to fourth dose was low at 6. Her dose was increased. Nonpharmacology treatment included elevatation of BLE and warm compress to left ankle for pain and potentially withdraw purulent discharge. She had low-grade fever 100.2F on 02/15/22, but was afebrile on 02/16. WBC downtrended 15 to 13 to 10. 7 transitioned to doxycycline 100 mg PO BID x 12 more days. No collectable wound drainage could be obtained for culture. (2) Sepsis: Qualifiers: Sepsis acute organ dysfunction status: without acute organ dysfunction Sepsis type: sepsis due to unspecified organism Qualified Code(s): A41.9 - Sepsis, unspecified organism Code(s): A41.9 - Sepsis, unspecified organism Status: Acute Assessment and Plan: Sepsis criteria met on admission with tachycardia, tachypnea, leukocytosis and lactic acidosis on admission.? Lactic acidosis resolved, along with tachycardia and tachypnea following fluid administration. Blood cultures were negative x 2 bottles for >48 hours. Continue antibiotic therapy with vancomycin. (3) Uncontrolled hypertension: Code(s): I10 - Essential (primary) hypertension Status: Acute Assessment and Plan: Acute on chronic. Continued on lisinopril. BP was initially 150-170/90s. She received 1 dose of IV hydralazine inpatient. Pain was thought to be a component of hypertension, as well as patient's non-compliance with medications. BP improved to 130-140s/70-80s (4) Acute hypokalemia: Code(s): E87.6 - Hypokalemia Status: Acute Assessment and Plan: Potassium 3.0 on admission. She received 2 doses of KCl 40 mEq p.o. on 02/14/22 and 02/15/22. Potassium was stable on discharge. (5) Depression: Onset Date: 11/08/15 Qualifiers: Active/Remission status: currently active Depression Type: major depressive disorder Major depression episode severity: severe Major depression recurrence: unspecified whether recurrent Psychotic features: without psychotic features Qualified Code(s): F32.2 - Major depressive disorder, single episode, severe without psychotic features Code(s): F32.A - Depression, unspecified Status: Acute Assessment and Plan: Patient was very tearful and emotional throughout her hospital stay. She was eager for discharge to take care of social and financial concerns related to her parents moving and her belongings in [her] parent's basement that would be auctioned off if not collected as soon as possible. She was also tearful about her , unemployment and daughter moving out. Antidepressant therapy was offered to the patient and refused.?She wanted to follow-up with a counselor or primary care provider later. Care coordination gave the patient community resources on local counseling services. DS: Summary Hospital Course Reason for hospitalization: Left ankle pain Hospital Course: Elham Bennett is a 46-year-old female with past medical history of essential hypertension who presented to the ER with c/o left ankle pain.? She reported slamming her ankle into a door at home approximately 2 weeks ago.? She had a small abrasion t
--- NOTE | 2022-02-16 10:40 | PC.NURSE ---
pt discharging, awaiting ride, discharge paperwork explained, IV removed.
== END 2022-02-16 10:50 | disposition home or self-care (01) ==
LOC: ANHED 02-14 01:25 → ANH3MEDSUR 02-14 03:59
PROVIDERS: Nurse Practitioner Family; Physician Assistant; Admitting Provider Internal Medicine; Emergency Provider Emergency Medicine; Visit Provider Internal Medicine
DX: A41.9 Sepsis, unspecified organism (principal); L03.116 Cellulitis of left lower limb; E87.6 Hypokalemia; I10 Essential (primary) hypertension; F41.1 Generalized anxiety disorder; F32.A Depression, unspecified; F17.210 Nicotine dependence, cigarettes, uncomplicated; Z79.51 Long term (current) use of inhaled steroids; Z20.822 Contact with and (suspected) exposure to COVID-19
CPT/HCPCS: 36415; 73610; 73700; 80048; 80053; 80202; 83605; 85025; 85027; 85652; 86140; 87040; 96361; 96365; 96372; 96374; 96375; 96376; 99285; A9270; C9113; C9803; G0378; G0379; J0131; J0360; J1650; J1885; J2270; J3370; J7030; U0003; U0005

== ENCOUNTER 2022-03-05 21:43 | Emergency (ER) | payer OTHER, SELFPAY ==
[2022-03-05] VITALS (7 sets, daily range): BP systolic 164–193; BP diastolic 89–109; PULSE 80–98; RESP 17–19; TEMP 36.9; O2SAT 94–100
--- NOTE | 2022-03-05 22:07 | ED.WOUNDLAC ---
HPI - Wound/Laceration General Chief Complaint: Wound/Laceration Stated Complaint: L ANKLE OPEN SORE Time Seen by Provider: 03/05/22 22:08 Source: patient History of Present Illness HPI narrative: 46-year-old female with a history hypertension, depression, was admitted in [facility] from 02/14/22 to 02/16/2022 For cellulitis of the left ankle for which she was treated with IV vancomycin. The patient was discharged on 02/16 on oral doxycycline and antibiotic ointment. She presents to the ER with erythema, swelling and ulceration of left lateral ankle. the wound started as as injury when her foot got caught between 2 objects. She is noted to elevated blood pressure. She has not been taking her blood pressure medications. Onset (ago): day(s) ( She has had cellulitis since 02/12/2022) Extremity Location: Left: ankle ( over the left lateral malleolus) Body four view annotation: 1. cellulitis over the left lateral ankle with ulceration Patient tetanus UTD: Yes Context: accidental Associated symptoms: pain Treatments prior to arrival: other ( Just completed doxycycline and is currently on antibiotic cream) Related Data Home Medications Medication Instructions Recorded Confirmed albuterol sulfate 90 mcg/actuation 90 mcg inhalation Q4-6H PRN 02/14/22 03/05/22 aerosol inhaler Shortness Of Breath Or Wheezing lisinopril 40 mg tablet 40 mg PO DAILY 02/14/22 03/05/22 Allergies Allergy/AdvReac Type Severity Reaction Status Date / Time penicillin G Allergy Severe mouth and Verified 03/05/22 22:07 throat swell latex Allergy Intermediate Unknown Verified 03/05/22 22:07 levofloxacin [Levaquin] Allergy Intermediate Itching Verified 03/05/22 22:07 Iodinated Contrast Media Allergy Mild sneezing, Verified 03/05/22 22:07 stuffy head mupirocin Allergy Rash Verified 03/05/22 22:07 Sulfa (Sulfonamide AdvReac Mild Nausea and Verified 03/05/22 22:07 Antibiotics) Vomiting Review of Systems Review of Systems: All systems reviewed & are unremarkable except as noted in HPI and below Constitutional: Constitutional: Reports as per HPI and Reports no additional constitutional complaints Eyes: Eyes: Reports as per HPI and Reports no additional eye complaints ENT: Reports system reviewed and no additional complaints, except as documented and Reports as per HPI Cardiovascular: Cardiovascular: Reports as per HPI and Reports no additional cardiovascular complaints Respiratory: Respiratory: Reports as per HPI and Reports no additional respiratory complaints Gastrointestinal: Gastrointestinal: Reports as per HPI and Reports no additional gastrointestinal complaints Genitourinary: Genitourinary: Reports no additional female genitourinary complaints and Reports as per HPI Musculoskeletal: Musculoskeletal: Reports no additional musculoskeletal complaints and Reports as per HPI Integumentary/Breasts: Comments: cellulitis of the left lateral ankle with ulceration. Neurologic: Reports system reviewed and no additional complaints, except as documented and Reports as per HPI Psychiatric: Psychiatric: Reports no additional psychiatric complaints, Reports as per HPI and Reports depression Endocrine: Endocrine: Reports no additional endocrine complaints and Reports as per HPI Hematologic/Lymphatic: Hematologic/Lymphatic: Reports no additional hematologic/lymphatic complaints and Reports as per HPI Allergic/Immunologic: Allergic/Immunologic: Reports no additional allergic/immunologic complaints and Reports as per HPI [facility] Past Medical History Medical History Cellulitis of foot Depression (11/08/15) JANAE (generalized anxiety disorder) Hypertension Nicotine dependence, cigarettes, with unspecified nicotine-induced disorders Surgical History Surgical History History of endometrial ablation History of tonsille
[2022-03-05] MEDS: cloNIDine HCL 0.2 MG TABLET PO (23:02)
[2022-03-05 23:16] LABS: Basophils Absolute Auto 0.06 K/mm3 (0.00-0.10); Basophils Percent Auto 0.6 % (0.0-1.0); Eosinophils Absolute Auto 0.19 K/mm3 (0.02-0.50); Eosinophils Percent Auto 1.8 % (1.0-6.0); Hematocrit 40.2 % (35.0-49.0); Hemoglobin 13.4 g/dL (12.0-15.0); Immature Granulocyte Absolute 0.04 K/mm3 (0.00-0.00); Immature Granulocyte Percent A 0.4 % (0.0-0.0); Lymphocytes Absolute Auto 1.82 K/mm3 (1.10-4.50); Lymphocytes Percent Auto 17.1 % (18.0-42.0); Mean Corpuscular HGB Conc 33.3 g/dL (32.0-36.0); Mean Corpuscular Hemoglobin 31.1 pg (27.0-31.0); Mean Corpuscular Volume 93.3 fL (78.0-102.0); Mean Platelet Volume 10.4 fl (9.2-11.8); Monocytes Absolute Auto 0.83 K/mm3 (0.10-0.90); Monocytes Percent Auto 7.8 % (2.0-11.0); Neutrophils Absolute Auto 7.7 K/mm3 (1.7-7.2); Neutrophils Percent Auto 72.3 % (50.0-70.0); Platelet Count Result 340 K/mm3 (150-420); Red Blood Count 4.31 M/mm3 (4.20-5.40); Red Cell Distribution Width 12.4 % (11.6-14.4); White Blood Count 10.7 K/mm3 (4.8-10.8)
[2022-03-05] MEDS: HYDROcodone/acetaminophen (*CRX) 5-325 MG TABLET 1 TAB PO (23:21)
[2022-03-05 23:36] LABS: Lactic Acid Reflex 0.5 mmol/L (0.4-2.0)
[2022-03-05 23:42] LABS: Alanine Aminotransferase 13 U/L (14-59); Albumin Level 3.4 g/dL (3.4-5.0); Alkaline Phosphatase 98 U/L (46-116); Anion Gap 6 mmol/L (8-16); Aspartate Amino Transferase 11 U/L (15-37); Bilirubin,Total 0.2 mg/dL (0.00-1.00); Blood Urea Nitrogen 18 mg/dL (7-18); Calcium 8.8 mg/dL (8.5-10.1); Carbon Dioxide 31 mmol/L (21-32); Chloride 104 mmol/L (98-108); Estimated CRCL calculation 52 ml/min; Estimated Glomerular Filt Rate 57; Glucose 81 mg/dL (70-99); Osmolality Calculated 292 mOsm/kg (285-295); Potassium 2.8 mmol/L (3.5-5.1); Sodium 141 mmol/L (136-145); Total Protein 7.3 g/dL (6.4-8.2)
[2022-03-06 00:09] VITALS: BP 156/98; PULSE 72; RESP 16; O2SAT 98
[2022-03-06 00:12] VITALS: BP 156/98; PULSE 78
[2022-03-06] MEDS: CLINDAMYCIN HCL 150 MG CAP 300 MG PO (00:25)
[2022-03-06] MEDS: SPIRONOLACTONE 25 MG TABLET PO (00:25)
[2022-03-06] MEDS: KCL 20 MEQ/SW 100 ML 100 ML 50 MEQ IVPB (00:25)
[2022-03-06] MEDS: POTASSIUM CHLORIDE 20 MEQ TABLET 40 MEQ PO (00:26)
[2022-03-06 00:35] LABS: Magnesium 1.9 mg/dL (1.8-2.4)
[2022-03-06] MEDS: SODIUM CHLORIDE 0.9% IV 250 ML 50 ML (00:44)
[2022-03-06 01:01] VITALS: BP 125/99; PULSE 75; RESP 17; O2SAT 98
[2022-03-06 02:49] LABS: Potassium 3.5 mmol/L (3.5-5.1)
[2022-03-06 02:49] LABS: Add Urine Microscopic? YES; Appearance Urine Clear (Clear); Bilirubin Urine Negative (Negative); Blood Urine 1+ (Negative); Color Urine Yellow (Yellow); Glucose Urine UA Negative (Negative); Ketones Urine Negative (Negative); Leukocyte Esterase Ur Negative (Negative); Nitrate Urine Negative (Negative); Protein Urine Trace (Negative); Specific Grav Ur >= 1.030 (1.010-1.020); Urobilinogen Urine 0.2 mg/dL (0.2-1.0)
[2022-03-06 02:53] LABS: Bacteria Urine Trace /hpf; Mucus Urine Moderate /lpf; Squamous Epithelial Cell Urine Moderate /hpf (Few); WBC Urine 0-3 /hpf (0-3)
[2022-03-06 03:18] VITALS: BP 153/93; PULSE 77; RESP 17; TEMP 36.3; O2SAT 99
[2022-03-09 15:28] LABS: Cortisol Random 7.8 mcg/dL (***)
[2022-03-10 14:23] LABS: Metanephrine, Free <25 pg/mL (<=57); Normetanephrine, Free 135 pg/mL (<=148); Total, Free (MN + NMN) 135 pg/mL (<=205)
== END 2022-03-06 03:19 | disposition home or self-care (01) ==
PROVIDERS: Emergency Provider Internal Medicine Critical Care Medicine
DX: L03.116 Cellulitis of left lower limb (principal); I10 Essential (primary) hypertension; E87.6 Hypokalemia
CPT/HCPCS: 36415; 80053; 81001; 82088; 82533; 83605; 83735; 83835; 84132; 84244; 84443; 85025; 87040; 87070; 87081; 87147; 87205; 96365; 96366; 99284; A9270; J3480; J7050

== ENCOUNTER 2022-12-26 17:03 | Emergency (ER) | payer OTHER, SELFPAY ==
--- NOTE | 2022-12-26 17:24 | PC.NURSE ---
all rooms full upon arrival. pt informed and was registered. room cleaned directly. went to lobby to get pt. pt departed facility unable to be found.
== END 2022-12-26 17:24 | disposition left against medical advice (07) ==
LOC: CHSED 12-29 09:28
PROVIDERS: Emergency Provider Emergency Medicine; PCP Family Medicine
DX: Z53.21 Procedure and treatment not carried out due to patient leaving prior to being seen by health care provider (principal)
CPT/HCPCS: 99199

== ENCOUNTER 2022-12-27 14:08 | Observation (INO) | payer OTHER, SELFPAY ==
[2022-12-27] VITALS (30 sets, daily range): BP systolic 149–202; BP diastolic 74–120; PULSE 75–101; RESP 14–20; TEMP 35.5–38.1; O2SAT 87–100; BMI 21.0
[2022-12-27] MEDS: SODIUM CHLORIDE 0.9% IV 1,000 ML 999 ML IV CONT (14:53)
--- NOTE | 2022-12-27 15:03 | ED.NAVMDI ---
HPI - Nausea/Vomiting/Diarrhea General Chief complaint: Nausea/Vomiting/Diarrhea Stated complaint: ear infection/vomitting/diarhea fatigue Source: patient Mode of arrival: ambulatory Limitations: no limitations History of Present Illness HPI Narrative: 47-year-old female with a history depression, hypertension, EGD, cellulitis of the left ankle presents to the ER with a 4 day history of -- nausea with multiple episodes of vomiting -- multiple episodes of diarrhea. no recent antibiotics -- epigastric pain -- has chills without any fever -- left ear --HTN- patient is on lisinopril 40 mg daily. The patient has stopped taking her medication recently. MD elicited complaint: nausea, vomiting, diarrhea and abdominal pain Pertinent past history: anorexia Onset (ago): day(s) ( symptoms started 4 days ago.) Description of vomiting: watery Description of diarrhea: watery Associated nausea: Yes Associated abdominal pain: Yes Location of pain: epigastric Quality: aching Exacerbating factors: none Relieving factors: none Associated symptoms: denies other symptoms and fever/chills Related Data Home Medications Medication Instructions Recorded Confirmed albuterol sulfate 90 mcg/actuation 90 mcg inhalation Q4-6H PRN 02/14/22 12/27/22 aerosol inhaler Shortness Of Breath Or Wheezing lisinopril 40 mg tablet 40 mg PO DAILY 02/14/22 12/27/22 Allergies Allergy/AdvReac Type Severity Reaction Status Date / Time penicillin G Allergy Severe mouth and Verified 11/20/22 08:12 throat swell latex Allergy Intermediate Unknown Verified 11/20/22 08:12 levofloxacin [Levaquin] Allergy Intermediate Itching Verified 11/20/22 08:12 Iodinated Contrast Media Allergy Mild sneezing, Verified 11/20/22 08:12 stuffy head mupirocin Allergy Rash Verified 11/20/22 08:12 Sulfa (Sulfonamide AdvReac Mild Nausea and Verified 11/20/22 08:12 Antibiotics) Vomiting Review of Systems Review of Systems: All systems reviewed & are unremarkable except as noted in HPI and below Constitutional: Constitutional: Reports as per HPI, Reports no additional constitutional complaints and Reports chills Eyes: Eyes: Reports as per HPI and Reports no additional eye complaints ENT: Reports system reviewed and no additional complaints, except as documented and Reports as per HPI Cardiovascular: Cardiovascular: Reports as per HPI and Reports no additional cardiovascular complaints Respiratory: Respiratory: Reports as per HPI and Reports no additional respiratory complaints Gastrointestinal: Gastrointestinal: Reports as per HPI, Reports no additional gastrointestinal complaints, Reports diarrhea, Reports nausea and Reports vomiting Genitourinary: Genitourinary: Reports no additional female genitourinary complaints and Reports as per HPI Musculoskeletal: Musculoskeletal: Reports no additional musculoskeletal complaints and Reports as per HPI Integumentary/Breasts: Skin/Breast: Reports system reviewed and no additional complaints, except as docu and Reports as per HPI Neurologic: Reports system reviewed and no additional complaints, except as documented and Reports as per HPI Psychiatric: Psychiatric: Reports no additional psychiatric complaints and Reports as per HPI Endocrine: Endocrine: Reports no additional endocrine complaints and Reports as per HPI Hematologic/Lymphatic: Hematologic/Lymphatic: Reports no additional hematologic/lymphatic complaints and Reports as per HPI Allergic/Immunologic: Allergic/Immunologic: Reports no additional allergic/immunologic complaints and Reports as per HPI PMF[facility] Past Medical History Medical History Cellulitis of foot Depression (11/08/15) JANAE (generalized anxiety disorder) Hypertension Nicotine dependence, cigarettes, with unspecified nicotine-induced disorders Surgical History Surgical History History of
--- NOTE | 2022-12-27 15:21 | ECG_ITS ---
Measurements Intervals [place] Rate: 68 P: 70 CT: 120 QRS: 76 QRSD: 96 T: 80 QT: 503 QTc: 538 Interpretive Statements SINUS RHYTHM POSSIBLE LEFT ATRIAL ENLARGEMENT MINIMAL Q WAVES- INFERIOR LEADS T WAVE ABNORMALITY IN ANTERIOR LEADS- CONSIDER ISCHEMIA ABNORMAL ECG NO PREVIOUS ECG AVAILABLE FOR COMPARISON Electronically Signed On 12-27-2022 17:55:30 CDT by Oleksandr Moore D.O.
[2022-12-27] MEDS: LACTATED RINGERS 1,000 ML 999 ML IV CONT ×2 (15:35→17:44)
[2022-12-27] MEDS: PROCHLORPERAZINE EDISYLATE 10 MG/2 ML VIAL IV PUSH (15:36)
[2022-12-27] MEDS: LABETALOL HCL INJ 100 MG/20 ML VIAL 10 MG IV PUSH (15:36)
[2022-12-27 15:38] LABS: Basophils Absolute Auto 0.04 K/mm3 (0.00-0.10); Basophils Percent Auto 0.3 % (0.0-1.0); Eosinophils Absolute Auto 0.07 K/mm3 (0.02-0.50); Eosinophils Percent Auto 0.6 % (1.0-6.0); Hematocrit 54.6 % (35.0-49.0); Hemoglobin 18.6 g/dL (12.0-15.0); Immature Granulocyte Absolute 0.04 K/mm3 (0.00-0.00); Immature Granulocyte Percent A 0.3 % (0.0-0.0); Lymphocytes Absolute Auto 1.43 K/mm3 (1.10-4.50); Lymphocytes Percent Auto 11.5 % (18.0-42.0); Mean Corpuscular HGB Conc 34.1 g/dL (32.0-36.0); Mean Corpuscular Hemoglobin 30.7 pg (27.0-31.0); Mean Corpuscular Volume 90.2 fL (78.0-102.0); Mean Platelet Volume 11.6 fl (9.2-11.8); Monocytes Absolute Auto 1.29 K/mm3 (0.10-0.90); Monocytes Percent Auto 10.4 % (2.0-11.0); Neutrophils Absolute Auto 9.6 K/mm3 (1.7-7.2); Neutrophils Percent Auto 76.9 % (50.0-70.0); Platelet Count Result 240 K/mm3 (150-420); Red Blood Count 6.05 M/mm3 (4.20-5.40); White Blood Count 12.5 K/mm3 (4.8-10.8)
[2022-12-27 15:51] LABS: Prothrombin Time 10.9 Seconds (9.50-12.10)
[2022-12-27 15:52] LABS: Alanine Aminotransferase 12 U/L (14-59); Albumin Level 3.7 g/dL (3.4-5.0); Alkaline Phosphatase 78 U/L (46-116); Anion Gap 9 mmol/L (8-16); Aspartate Amino Transferase 16 U/L (15-37); Bilirubin,Total 0.6 mg/dL (0.00-1.00); Blood Urea Nitrogen 34 mg/dL (7-18); Calcium 8.6 mg/dL (8.5-10.1); Carbon Dioxide 34 mmol/L (21-32); Chloride 92 mmol/L (98-108); Estimated CRCL calculation 50 ml/min; Estimated Glomerular Filt Rate 52; Glucose 109 mg/dL (70-99); Osmolality Calculated 288 mOsm/kg (285-295); Sodium 135 mmol/L (136-145); Total Protein 7.5 g/dL (6.4-8.2)
[2022-12-27 15:57] LABS: Lactic Acid Reflex 1.5 mmol/L (0.4-2.0)
[2022-12-27 16:33] LABS: Troponin I 47.2 ng/L (0.00-60.4)
[2022-12-27 16:57] LABS: Pregnancy On Board Control Positive; Urine Pregnancy Test Negative
[2022-12-27 16:57] LABS: Appearance Urine Clear (Clear); Bilirubin Urine Negative (Negative); Blood Urine Negative (Negative); Color Urine Light Yellow (Yellow); Glucose Urine UA Negative (Negative); Ketones Urine Trace (Negative); Leukocyte Esterase Ur Trace LEU/UL (Negative); Nitrate Urine Negative (Negative); Protein Urine Negative (Negative); Specific Grav Ur <= 1.005 (1.010-1.020); Urobilinogen Urine 0.2 mg/dL (0.2-1.0)
[2022-12-27 17:02] LABS: Add Urine Microscopic? YES; Bacteria Urine Trace /hpf; RBC Urine 0-2 /hpf (0-2); Squamous Epithelial Cell Urine Few /hpf (Few); WBC Urine 0-3 /hpf (0-3)
[2022-12-27 17:45] LABS: Influenza A QL RT-PCR Negative (Negative); Influenza B QL RT-PCR Negative (Negative); RSV RNA, RT-PCR Negative (Negative); SARS-CoV-2 RNA PCR Negative (Negative)
--- NOTE | 2022-12-27 18:10 | ECG_ITS ---
Measurements Intervals [place] Rate: 78 P: 84 OH: 112 QRS: 97 QRSD: 98 T: 97 QT: 473 QTc: 541 Interpretive Statements SINUS RHYTHM WITH SHORT OH INTERVAL RIGHT AXIS DEVIATION POSSIBLE LEFT ATRIAL ENLARGEMENT MINIMAL Q WAVES- INFERIOR LEADS ST-T WAVE ABNORMALITY IN ANTEROLATERAL LEADS- CONSIDER ISCHEMIA ABNORMAL ECG COMPARED TO ECG 12/27/2022 15:54:06 NO SIGNIFICANT CHANGES Electronically Signed On 12-27-2022 21:46:59 CDT by Oleksandr Moore D.O.
[2022-12-27 18:44] LABS: Troponin I 53.6 ng/L (0.00-60.4)
--- NOTE | 2022-12-27 18:49 | PC.NURSE ---
1700 pt sleeping, 1800 pt sleeping, sister in room. 1850 pt sleeping.
[2022-12-27] MEDS: POTASSIUM CHLORIDE 20 MEQ TABLET 40 MEQ PO (21:16)
[2022-12-27] MEDS: SODIUM CHLORIDE 0.9% IV 1,000 ML 100 ML IV CONT (21:17)
--- NOTE | 2022-12-27 21:37 | PC.NURSE ---
Regino admitted to room 204, sister present, patient is groggy but responsive, oriented to room and call light.
[2022-12-27] MEDS: ONDANSETRON INJ 4 MG/2 ML VIAL IV PUSH (23:56)
[2022-12-28] VITALS: BP 171/92; PULSE 84; RESP 16; TEMP 37.3; O2SAT 98
--- NOTE | 2022-12-28 | PC.NURSE ---
This nurse was told in report that all patient's fingers were bluish-purple from middle of fingers to fingertips. Upon assessment, this nurse noted left hand a deep red and warm to touch, including fingertips, and most of right hand deep red and warm to touch except for index and middle finger. On those fingers color noted to be bluish-purple and cool to the touch. Asked patient if she has ever noticed this happening before and she shook her head no. Patient denies pain to fingers. SpO2 98% on room air. Patient complaining of nausea and gagging into nausea bag, but no emesis noted. Patient requested/given nausea medicine. Patient assisted to bedside commode with stand by assist to urinate. Urine dark yellow. As patient was getting back into bed she asked for something to eat. This nurse explained that eating while nauseous is not a good idea and suggested ice chips instead. Patient agreed to the ice chips. Call light in reach.
--- NOTE | 2022-12-28 03:13 | PC.NURSE ---
Patient has been sleeping since given Zofran. No distress noted. Call light in reach.
[2022-12-28 05:17] LABS: Hematocrit 47.3 % (35.0-49.0); Hemoglobin 15.8 g/dL (12.0-15.0); Mean Corpuscular HGB Conc 33.4 g/dL (32.0-36.0); Mean Corpuscular Volume 92.7 fL (78.0-102.0); Mean Platelet Volume 11.4 fl (9.2-11.8); Platelet Count Result 218 K/mm3 (150-420); Red Cell Distribution Width 12.2 % (11.6-14.4); White Blood Count 9.7 K/mm3 (4.8-10.8)
[2022-12-28 05:33] LABS: Alanine Aminotransferase 6 U/L (14-59); Albumin Level 3.1 g/dL (3.4-5.0); Alkaline Phosphatase 63 U/L (46-116); Anion Gap 5 mmol/L (8-16); Aspartate Amino Transferase 16 U/L (15-37); Bilirubin,Total 0.6 mg/dL (0.00-1.00); Blood Urea Nitrogen 22 mg/dL (7-18); Calcium 8.2 mg/dL (8.5-10.1); Carbon Dioxide 33 mmol/L (21-32); Chloride 100 mmol/L (98-108); Estimated CRCL calculation 66 ml/min; Estimated Glomerular Filt Rate > 60; Glucose 101 mg/dL (70-99); Osmolality Calculated 289 mOsm/kg (285-295); Potassium 3.6 mmol/L (3.5-5.1); Sodium 138 mmol/L (136-145); Total Protein 6.1 g/dL (6.4-8.2)
[2022-12-28] MEDS: SODIUM CHLORIDE 0.9% IV 1,000 ML 100 ML IV CONT (06:14)
[2022-12-28] MEDS: ONDANSETRON INJ 4 MG/2 ML VIAL IV PUSH (07:57)
[2022-12-28] MEDS: hydrALAZINE HCL 20 MG/ML VIAL 5 MG IV PUSH (07:57)
[2022-12-28 08:00] VITALS: BP 188/102; PULSE 86; RESP 14; TEMP 36.9; O2SAT 95
[2022-12-28] MEDS: lisinopriL 20 MG TABLET 40 MG PO (09:57)
--- NOTE | 2022-12-28 10:16 | PM.SD2 ---
Same Day Admit/Disch: HPI History of Present Illness Chief complaint: ear infection/vomitting/diarhea fatigue Narrative: Elham Bennett is a 47 year old female that presents to our emergency department with complaints of weakness nausea vomiting. patient has a past medical history depression, JANAE hypertension and nicotine dependence. according to patient for the last week she has been having nausea vomiting and some diarrhea. Patient notes that she does smoke cannabis. Patient does not have any significant labs. She does admit to smoking cannabis. This hospital stay she received IV antibiotics along with Zofran for her nausea and pain medication. Patient labs remained unremarkable she was given education on CHS and instructed to stop the use of cannabis. She does still have some nausea with weakness. Patient will be discharged home today with medication to prevent nausea vomiting and instructions on to resolve symptoms from CHS. The patient denies SOB, CP, palpitation, extremity numbness, lightheadedness, dizziness, constipation, diarrhea, chills, or fever. PMFSH Past Medical History Medical History Cellulitis of foot Depression (11/08/15) JANAE (generalized anxiety disorder) Hypertension Nicotine dependence, cigarettes, with unspecified nicotine-induced disorders Surgical History Surgical History History of endometrial ablation History of tonsillectomy and adenoidectomy Family History Family History Mother JANAE (generalized anxiety disorder) COPD (chronic obstructive pulmonary disease) Hypertension Father Hypertension Lung cancer Bone cancer Brain tumor Social History Social History Smoking packs per day: 1 Smoking cigarettes per day: 20.0 Years smoked: 26 Smoking pack-years: 26.00 Smoking status: Current every day smoker Tobacco type: cigarettes Second hand tobacco smoke exposure: Yes Additional smoking assessment comments: She has smoked 1 pack of cigarettes per day since age 18. Alcohol intake: unknown Drinks per week: 1 Substance use: unknown Substance use type: does not use Lack of Transportation: No Lack of Food: Never True Current Housing: I Have Housing Concerned About Future Housing: No Difficulty Paying Gas/Electric Bills: No Difficulty Paying for Meds: No Currently Unemployed: No Education: High School Diploma/GED Difficulty w/ Childcare or Family Care: No Living arrangements: alone Additional living arrangements comments: She is been since 2018. She has 2 children. Her daughter moved out when her and her daughter now lives with her grandparents. 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 Her parents are planning to moved to assisted living March 2022. Occupation/Education: unemployed Gender identity (if verbalized by the patient): Female Spiritual care concerns: No Same Day Admit/Disch: Med Pre-admit Medications Home Medications Medication Instructions Recorded Confirmed Type albuterol sulfate 90 mcg/actuation 90 mcg inhalation Q4-6H PRN 02/14/22 12/27/22 History aerosol inhaler Shortness Of Breath Or Wheezing lisinopril 40 mg tablet 40 mg PO DAILY 02/14/22 12/27/22 History ondansetron HCl 4 mg tablet 4 mg PO Q8H PRN nausea and 12/27/22 Rx vomiting 4 days #10 tabs azithromycin 250 mg tablet 250 mg PO DAILY 10 days #10 tabs 12/28/22 Rx (Zithromax Z-Tristian) capsaicin 0.075 % topical cream 1 applic topical TID 1 week #57 12/28/22 Rx grams lorazepam 1 mg tablet (Ativan) 1 mg PO BID PRN nausea and 12/28/22 Rx vomiting #20 tabs metoclopramide HCl 5 mg tablet 5 mg PO DAILY 2 weeks #14 tabs 12/28/22 Rx (Reglan) Exam Narrative: GENERA
[2022-12-28] MEDS: METOCLOPRAMIDE HCL INJ 10 MG/2 ML VIAL IV PUSH (10:40)
--- NOTE | 2022-12-28 11:57 | PC.NURSE ---
Pt discharged to home. VSS. Pt continues to be nauseated and have abdominal pain. Pt instructed on medications: dose. time, purpose and side effects . All dischagre instructions were reviewed. Pt verbalized understanding. Taken by WC to car by RN and helped inside.
--- NOTE | 2022-12-31 14:38 | PC.NURSE ---
Unable to contact for discharge call back.
== END 2022-12-28 11:30 | disposition home health service (06) ==
LOC: CHSED 20:15 → CHS2ND 20:27
PROVIDERS: Nurse Practitioner; Admitting Provider Internal Medicine; Emergency Provider Internal Medicine Critical Care Medicine; PCP Family Medicine; Visit Provider Internal Medicine
DX: E86.0 Dehydration (principal); K52.9 Noninfective gastroenteritis and colitis, unspecified; R11.2 Nausea with vomiting, unspecified; I10 Essential (primary) hypertension; H66.90 Otitis media, unspecified, unspecified ear; F32.A Depression, unspecified; F41.1 Generalized anxiety disorder; F17.210 Nicotine dependence, cigarettes, uncomplicated; F12.90 Cannabis use, unspecified, uncomplicated; Z20.822 Contact with and (suspected) exposure to COVID-19
CPT/HCPCS: 36415; 80053; 81001; 81025; 83605; 84484; 85025; 85027; 85610; 87637; 93005; 96361; 96374; 96375; 99285; A9270; G0378; G0379; J0360; J0780; J2405; J2765; J7030; J7120

== ENCOUNTER 2024-10-18 15:46 | Inpatient (IN) | payer OTHER, SELFPAY ==
[2024-10-18] VITALS (40 sets, daily range): BP systolic 163–235; BP diastolic 85–170; PULSE 81–103; RESP 12–25; TEMP 36.8–37; O2SAT 75–100; BMI 21.3
--- NOTE | ~2024-10-18 | CT_ITS ---
Non-contrast Head CT History: Intracranial hemorrhage Technique: Axial non-contrast imaging of the brain was performed. Dose reduction technique was used on this scan by utilizing automated exposure control and iterative reconstruction technique. The dose -length product (DLP) was 605.33 mGy-cm. Findings: There is no evidence of intracranial hemorrhage, mass lesion, or acute infarct. Brain par enchyma appears normal. The ventricles and subarachnoid spaces are normal in size. The calvarium ap pears normal. The visualized paranasal sinuses and mastoid air cells are clear. Impression: No significant abnormality seen. Reviewed, dictated and finalized at location . Impression: No significant abnormality seen.
--- NOTE | ~2024-10-18 | XR_ITS ---
EXAMINATION: XR chest 1V portable DATE: 10/18/2024 20:55 INDICATION: Chest pain. TECHNIQUE: A single frontal view of the chest was obtained on 2 radiographs. COMPARISON: Chest 2 views 03/15/2021 FINDINGS: There is no pneumonia, pleural effusion, or pneumothorax. The heart size is normal. IMPRESSION: 1. No acute cardiopulmonary disease. Reviewed, dictated and finalized at location A.
--- NOTE | ~2024-10-18 | XR_ITS ---
HISTORY: injury, contusion BRUISING TO FOREARM COMPARISON: None TECHNIQUE: 2 views of the left forearm were performed FINDINGS: No acute or subacute fracture. Joint spaces are preserved and alignment is maintained. Soft tissues are unremarkable without radiopaque foreign body or significant calcification. Age-appropriate mineralization. IMPRESSION: No acute fracture or dislocation Reviewed, dictated and finalized at location A.
--- NOTE | ~2024-10-18 | US_ITS ---
US renal BI Ordering provider: Vinny Walker MD History: . OMAIRA . Comparison: None. Technique: Ultrasound bilateral kidneys. Findings: RIGHT KIDNEY: Measures 13.6x 5x 6.1 cm in length which is normal in size. No renal cysts. No renal ma ss or visualized echogenic stones. Otherwise, normal echotexture and contour. No hydronephrosis. Norm al renal cortical thickness. LEFT KIDNEY: Measures 11.8x 5.5x 5.7 cm in length which is normal in size. No renal cysts. No renal m ass or visualized echogenic stones. Otherwise, normal echotexture and contour. No hydronephrosis. Nor mal renal cortical thickness. BLADDER: Daniel's catheter seen in the bladder. IMPRESSION: No definite abnormality seen in both kidneys. Reviewed, dictated and finalized at location A.
--- NOTE | ~2024-10-18 | CT_ITS ---
CT ANGIOGRAM NECK AND HEAD History: Cloudy vision. Technique: Axial noncontrast imaging of the brain was performed. Serial spiral axial images through t he head and neck were then obtained during arterial phase IV injection of 100 cc of Omnipaque 350. 3- D postprocessing and MIP images were then reconstructed on the remote workstation. Dose reduction emil hnique was used on this scan by utilizing automated exposure control and iterative reconstruction emil hnique. The dose-length product (DLP) was 2504.00 mGy-cm. CTA neck findings: Bilateral vertebral arteries are patent. Bilateral common carotid, internal carot id, and external carotid arteries are patent. No large vessel occlusion or stenosis. No aneurysm. The proximal right internal carotid artery demonstrates 0% stenosis relative to the normal distal artery lumen diameter. The proximal left internal carotid artery demonstrates 0% stenosis relative to the n ormal distal artery lumen diameter. CTA head findings: Distal vertebral arteries, basilar artery, and posterior cerebral arteries are pat ent. Distal internal carotid arteries, middle cerebral arteries, and anterior cerebral arteries are p atent. No large vessel occlusion or stenosis. No aneurysm seen. Axial noncontrast imaging of the brain is unremarkable. No acute infarct, intracranial hemorrhage or mass lesion identified. No mass effect or midline shift. Dupree-white differentiation technique. The ve ntricles and subarachnoid spaces are unremarkable. Paranasal sinuses and mastoid air cells are clear. Calvarium intact. Impression: No significant abnormality. Reviewed, dictated and finalized at [facility]. Impression: No significant abnormality.
--- NOTE | ~2024-10-18 | US_ITS ---
EXAMINATION: US right upper quadrant DATE: 10/21/2024 08:05 INDICATION: Abdominal pain. TECHNIQUE: Multiple grayscale and Doppler ultrasound images of the abdomen were obtained. COMPARISON: CT abdomen and pelvis 10/21/2024 FINDINGS: The visualized portions of the head, body, and tail of the pancreas are normal. The liver i s normal without focal lesion. No liver surface nodularity. There is normal flow in main portal vein. The gallbladder is distended and contains sludge. There is severe gallbladder wall thickening. There is no sonographic Fernando's sign. The common duct is normal and measures 5 mm. IMPRESSION: 1. Distended gallbladder with sludge. Severe gallbladder wall thickening may be seen with chronic tammie er disease or chronic cholecystitis. No sonographic Fernando's sign to suggest acute cholecystitis. If there is clinical concern for acute cholecystitis, consider hepatobiliary scintigraphy. Reviewed, dictated and finalized at location L. IMPRESSION: 1. Distended gallbladder with sludge. Severe gallbladder wall thickening may be seen with chronic liver disease or chronic cholecystitis. No sonographic Angelita y's sign to suggest acute cholecystitis. If there is clinical concern for acute cholecystitis, consider hepatobiliary scintigraphy.
--- NOTE | ~2024-10-18 | XR_ITS ---
XR abdomen/kub 1V Ordering provider: Raheem James MD History: . abdominal pain, constipation . Comparison: None. FINDINGS: BOWEL: Nonobstructive bowel gas pattern. ORGANOMEGALY: None. SIGNIFICANT PATHOLOGIC CALCIFICATIONS: None. OTHER: No free air is seen under the diaphragm. IMPRESSION: NO ACUTE ABDOMINAL FINDINGS. Reviewed, dictated and finalized at location A.
--- NOTE | ~2024-10-18 | CT_ITS ---
Non-contrast CT scan of the Abdomen and Pelvis Clinical indication: Abdominal pain Technique: 2.5 mm axial scans were obtained through the abdomen and pelvis without intravenous or or al contrast. Dose reduction technique was used on this scan by utilizing automated exposure control a nd iterative reconstruction technique. The dose-length product (DLP) was 294.88 mGy-cm. Findings: Images through the lung bases reveal no abnormalities. 2 mm nonobstructing left renal stone present. No right renal or right ureteral stone. Left ureteral s tone. No hydronephrosis on either side. The liver, spleen, pancreas, and adrenals appear normal. Presumed hyperdense gallbladder sludge with diffuse gallbladder wall thickening. There is no aortic aneurysm. There is no evidence of bowel obstruction. Images through the pelvis were performed. There is no evidence of ascites or lymphadenopathy. There i s air in urinary bladder. No pelvic mass evident. No ascites. Impression: Probable gallbladder sludge and diffuse gallbladder wall thickening/edematous change. Correlate for a cute cholecystitis. Consider ultrasound and/or HIDA scan for further evaluation. Air in urinary bladder, which may be iatrogenic. Correlate clinically. 2 mm nonobstructing left renal stone. Reviewed, dictated and finalized at [facility]. Impression: Probable gallbladder sludge and diffuse gallbladder wall thickening/edematous c hange. Correlate for acute cholecystitis. Consider ultrasound and/or HIDA scan for further evaluation. Air in urinary bladder, which may be iatrogenic. Correlate clinically. 2 mm nonobstructing left renal stone.
--- NOTE | ~2024-10-18 | XR_ITS ---
Exam: Abdomen 1V portable HISTORY: abdominal pain COMPARISON: Reference is made to CT examination of the pelvis dated 10/21/2024. TECHNIQUE: Portable AP image of the supine abdomen FINDINGS: Bowel gas pattern is non-obstructive. There is no free air or deep sulci. No pathologic calcifications are seen. Lung bases are included. Bones and soft tissues are unremarkable. IMPRESSION: Nonspecific, nonobstructive bowel gas pattern, as detailed above. Reviewed, dictated and finalized at location A.
--- NOTE | 2024-10-18 16:21 | ED_ITS ---
HPI - Weakness General Chief complaint: Alcohol <Maria Del Carmen Fabian PA-C - Last Filed: 10/21/24 12:59> Stated complaint: flulike s/s <Maria Del Carmen Fabian PA-C - Last Filed: 10/21/24 12:59> Time Seen by Provider: 10/18/24 16:21 <Maria Del Carmen Fabian PA-C - Last Filed: 10/21/24 12:59> Focused HPI: This is a 48 year old female that presents to the ER for nausea, weakness. Reports her blood pressure has been elevated. Reports generalized weakness. Reports every time she eats she gets sick. Reports she is currently detoxing from alcohol. Her last drink was 10 days ago. GENERAL: Well-appearing, well-nourished, and in no acute distress. HEAD: Normocephalic, atraumatic. CHEST: Clear to auscultation. ?No respiratory distress. HEART: Regular rate and rhythm.? NEURO: ?Alert and oriented x3. Patient screened in triage and initial orders placed.? ?Additional care and disposition to be based upon?diagnostic testing and treatment. <Maria Del Carmen Fabian PA-C - Last Filed: 10/21/24 12:59> Source: patient <CORINA Zabala Last Filed: 10/19/24 02:25> Mode of arrival: ambulatory <Collin Orozco PA-C - Last Filed: 10/19/24 02:25> Limitations: no limitations <CORINA Zabala Last Filed: 10/19/24 02:25> History of Present Illness HPI Narrative: This is a 48-year-old female who presents to the ED for chief complaint of N/V and feeling generally weak x7 days. Patient states that her lower legs are weak and cramping. States that she has had several episodes of nausea and vomiting over the last several days. Patient states that she stopped drinking about 10 days ago. She states that she did in 10 to stop drinking. She has been a daily drinker for many years. Patient states that she did her her left arm a few days ago. Reports blood pressure is high and that she has not been able to take her lisinopril. She reports epigastric abdominal pain as well as pain under both ribs. Denies chest pain. Denies shortness of breath, cough, fevers, chills. States that she has never been in withdrawal from alcohol before. <Collin Orozco PA-C - Last Filed: 10/19/24 02:25> Related Data Home medications: Home Medications ?Medication ?Instructions ?Recorded ?Confirmed ?Last Taken ?Type albuterol sulfate 90 mcg/actuation 90 mcg inhalation Q4-6H PRN 02/14/22 10/18/24 Unknown History aerosol inhaler Shortness Of Breath Or Wheezing lisinopril 40 mg tablet 40 mg PO DAILY 02/14/22 10/18/24 Unknown History <Maria Del Carmen Fabian PA-C - Last Filed: 10/21/24 12:59> Allergies/Adverse reactions: Allergies Allergy/AdvReac Type Severity Reaction Status Date / Time penicillin G Allergy Severe mouth and Verified 10/21/24 09:06 throat swell latex Allergy Intermediate Unknown Verified 10/18/24 23:35 levofloxacin (Levaquin) Allergy Intermediate Itching Verified 10/18/24 23:35 Iodinated Contrast Media Allergy Mild sneezing, Verified 10/18/24 23:35 stuffy head mupirocin Allergy Rash Verified 10/18/24 23:35 Sulfa (Sulfonamide AdvReac Mild Nausea and Verified 10/18/24 23:35 Antibiotics) Vomiting <CORINA Horne Last Filed: 10/21/24 12:59> Review of Systems 2 Review of Systems: All systems as dictated in HPI <Collin Orozco PA-C - Last Filed: 10/19/24 02:25> [facility] [place] Past Medical History Medical History: Medical History Depression (11/08/15) Cellulitis of foot Nicotine dependence, cigarettes, with unspecified nicotine-induced disorders JANAE (generalized anxiety disorder) Hypertension <Maria Del Carmen Fabian PA-C - Last Filed: 10/21/24 12:59> Surgical History Surgical History: Surgical History History of endometrial ablation History of tonsillectomy and adenoidectomy <CORINA Horne Last Filed: 10/21/24 12:59> Family History Family History: Family History Mother JANAE (generalized anxiety disorder) COPD (chronic obstructive pulmonary disease) Hypertension Father Hypertension Lung cancer Bone cancer Brain tumor <Maria Del Carmen Fabian PA-C - Last Filed: 10/21/24 12:59> Social History Social History: Social History Smoking packs per day: 1 Smoking cigarettes per day: 20.0 Years smoked: 26 Smoking pack-years: 26.00 Smoking status: Current every day smoker Tobacco type: cigarettes Second hand tobacco smoke exposure: Yes Additional smoking assessment comments: She has smoked 1 pack of cigarettes per day since age 18. Alcohol intake: current Drinks per week: 1 Substance use: former Substance use type: marijuana, crack/cocaine and methamphetamine Last use: 10/08/2024 Do You Feel Safe in your Home?: Yes Lack of Transportation: YES Lack of Food: Often True Current Housing: I Have Housing Concerned About Future Housing: No Difficulty Paying Gas/Electric Bills: YES Difficulty Paying for Meds: No Currently Unemployed: YES Education: Trade/Vocational Certificate Difficulty w/ Childcare or Family Care: No Living arrangements: alone Additional living arrangements comments: She is been since 2019. She has 2 children. Her daughter moved out when her and her daughter now lives with her grandparents. 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 Her parents are planning to moved to assisted living March 2022. Occupation/Education: unemployed Gender identity (if verbalized by the patient): Female Spiritual care concerns: No <Maria Del Carmen Fabian PA-C - Last Filed: 10/21/24 12:59> Exam 2 Narrative: GENERAL: Appears ill. Diaphoretic. Lying in bed and answering questions. HEAD: Normocephalic, atraumatic. EYES: PERRLA and EOMI. ENT: Nares clear, no rhinorrhea or epistaxis. Mucous membranes moist. Oropharynx without tonsillar hypertrophy exudate or other lesions. NECK: Supple. No adenopathy or masses. CHEST: No respiratory distress. Clear to auscultation. No wheezes rales or rhonchi HEART: Regular rate and rhythm. No murmur heard. Normal peripheral pulses. ABDOMEN: Mild epigastric tenderness. Soft, otherwise nontender, nondistended, normal active bowel sounds. MSK: Normal range of motion. No edema. SKIN: Warm, dry, no rash. NEURO: Alert and oriented x4. No focal deficits. PSYCH: Normal mood and affect. <Collin Orozco PA-C - Last Filed: 10/19/24 02:25> Course ACOUSTICS TEACHER/PA Physician Supervision For this patient encounter, I reviewed the ACOUSTICS TEACHER or PA documentation, treatment plan, and medical decision making and had [id number] time with this patient. I performed all aspects of the MDM as documented. <Jose Anderson MD - Last Filed: 10/19/24 03:10> Vital Signs Vital signs: Vital Signs Temperature 98.3 F 10/18/24 16:14 Pulse Rate 100 10/18/24 16:14 Respiratory Rate 20 10/18/24 16:14 Blood Pressure 193/120 H 10/18/24 16:14 Pulse Oximetry 97 10/18/24 16:14 Oxygen Delivery Room Air 10/18/24 16:14 Temperature 98.9 F 10/21/24 11:44 Pulse Rate 72 10/21/24 12:00 Respiratory Rate 18 10/21/24 11:44 Blood Pressure 143/64 H 10/21/24 11:44 Pulse Oximetry 100 10/21/24 11:44 Oxygen Delivery Room Air 10/21/24 04:00 <Maria Del Carmen Fabian PA-C - Last Filed: 10/21/24 12:59> Vital Signs Temperature 98.3 F 10/18/24 16:14 Pulse Rate 100 10/18/24 16:14 Respiratory Rate 20 10/18/24 16:14 Blood Pressure 193/120 H 10/18/24 16:14 Pulse Oximetry 97 10/18/24 16:14 Oxygen Delivery Room Air 10/18/24 16:14 Temperature 98.9 F 10/21/24 11:44 Pulse Rate 72 10/21/24 12:00 Respiratory Rate 18 10/21/24 11:44 Blood Pressure 143/64 H 10/21/24 11:44 Pulse Oximetry 100 10/21/24 11:44 Oxygen Delivery Room Air 10/21/24 04:00 <Collin Orozco PA-C - Last Filed: 10/19/24 02:25> Vital Signs Temperature 98.3 F 10/18/24 16:14 Pulse Rate 100 10/18/24 16:14 Respiratory Rate 20 10/18/24 16:14 Blood Pressure 193/120 H 10/18/24 16:14 Pulse Oximetry 97 10/18/24 16:14 Oxygen Delivery Room Air 10/18/24 16:14 Temperature 98.9 F 10/21/24 11:44 Pulse Rate 72 10/21/24 12:00 Respiratory Rate 18 10/21/24 11:44 Blood Pressure 143/64 H 10/21/24 11:44 Pulse Oximetry 100 10/21/24 11:44 Oxygen Delivery Room Air 10/21/24 04:00 <Jose Anderson MD - Last Filed: 10/19/24 03:10> MDM - Weakness MDM Narrative Medical decision making narrative: This is a 48-year-old female who presents to the ED for chief complaint of nausea, vomiting as well as upper abdominal pain. Vitals on arrival show elevated blood pressure in the 190s. She continues to markedly hypertensive with blood pressures in the 230s over 130s. EKG shows significant ST depression and T-wave inversions in V3 through V6 as well as lead II. Patient is not having any abdominal tenderness on exam so troponin was ordered and is elevated to 0.080. Other labs are remarkable for hypokalemia at at 2.9. Mild hyponatremia of 132. BUN elevated at 23. BNP is greater than 30,000. Presentation certainly concerning for possible NSTEMI due to the ischemic findings on the EKG and the location of pain along with elevated troponin. Overall the picture is not clear cut and she has multiple issues that need to be addressed. Started to replete her potassium here in the ED. Her blood pressures remain in the 230s on re-evaluation. Her urine drug screen is positive for amphetamines. States that her last drink of alcohol was 10 days ago, however unclear if she may be alcohol withdrawal so CIWA protocol was started. Discussed the case with Cardiology, Dr. Dueñas who agrees with started the patient on heparin bolus and drip for NSTEMI. She was given initial dose of labetalol for blood pressure which had minimal effect. She was started on nitro drip. She will be admitted to the ICU after speaking with Dr. James who agrees with admission. Patient is understanding and agreeable with the plan. <Collin Orozco PA-C - Last Filed: 10/19/24 02:25> This is a 48-year-old female who presents to the ED for chief complaint of nausea, vomiting as well as upper abdominal pain. Vitals on arrival show elevated blood pressure in the 190s. She continues to markedly hypertensive with blood pressures in the 230s over 130s. EKG shows significant ST depression and T-wave inversions in V3 through V6 as well as lead II. Patient is not having any abdominal tenderness on exam so troponin was ordered and is elevated to 0.080. Other labs are remarkable for hypokalemia at at 2.9. Mild hyponatremia of 132. BUN elevated at 23. BNP is greater than 30,000. Presentation certainly concerning for possible NSTEMI due to the ischemic findings on the EKG and the location of pain along with elevated troponin. Overall the picture is not clear cut and she has multiple issues that need to be addressed. Started to replete her potassium here in the ED. Her blood pressures remain in the 230s on re-evaluation. Her urine drug screen is positive for amphetamines. States that her last drink of alcohol was 10 days ago, however unclear if she may be alcohol withdrawal so CIWA protocol was started. Discussed the case with Cardiology, Dr. Dueñas who agrees with started the patient on heparin bolus and drip for NSTEMI. She was given initial dose of labetalol for blood pressure which had minimal effect. She was started on nitro drip. She will be admitted to the ICU after speaking with Dr. James who agrees with admission. Patient is understanding and agreeable with the plan. Critical care time of 57 minutes, exclusive of separately performed procedures, necessary for treating or preventing eminent or life-threatening deterioration of patient's condition of NSTEMI requiring heparin drip, hypertensive emergency requiring nitro drip, focused on patient care provided personally by me and time spent during initial evaluation, physical examination, ordering and performing treatments and interventions, ordering and reviewing laboratory studies, ordering and reviewing radiographic studies, re-evaluation of the patient's condition, evaluation of the patient's response to treatment, and discussion of patient case with multiple consultants. <Jose Anderson MD - Last Filed: 10/19/24 03:10> Lab Data Result diagrams: 10/21/24 04:28 10/21/24 04:28 <Maria Del Carmen Fabian PA-C - Last Filed: 10/21/24 12:59> Labs: Lab Results 10/18/24 Range/Units 17:04 WBC 13.4 H (4.5-10.0) K/mm3 RBC 5.18 (4.2-5.4) M/mm3 Hgb 15.8 H (12.0-15.0) g/dL Hct 44.7 (37.0-47.0) % MCV 86.3 (80-100) fl MCH 30.5 (26-34) pg MCHC 35.3 (32-36) g/dl RDW 12.3 (11.5-14.5) % Plt Count 228 (150-375) k/mm3 MPV 12.3 H (7.4-10.4) fl Immature Gran % (Auto) 0.3 (0-0.5) % Neut % (Auto) 77.9 H (45.5-73.1) % Lymph % (Auto) 11.4 L (18.3-44.2) % [place] % (Auto) 9.4 H (2.6-8.5) % Eos % (Auto) 0.6 (0-4.4) % Baso % (Auto) 0.4 (0.2-1.2) % Lymph # (Auto) 1.53 (0.9-3.2) K/mm3 [place] # (Auto) 1.3 H (0.1-0.6) K/mm3 Eos # (Auto) 0.1 (0-0.3) K/mm3 Baso # (Auto) 0.1 (0.0-0.1) K/mm3 Abs Immat Gran (auto) 0.04 H (0.00-0.031) K/mm3 Absolute Neuts (auto) 10.5 H (1.3-6.7) K/mm3 Absolute Nucleated RBC 0.000 (0.0-0.012) K/mm3 Nucleated RBC % 0.0 (0.0-0.2) % PT 13.2 (11.1-14.7) Seconds INR 1.0 APTT 26.1 (22.3-36.8) Seconds Sodium 132 L (137-145) mmol/L Potassium 2.9 L (3.4-5.0) mmol/L Chloride 90 L (98-107) mmol/L Carbon Dioxide 30 (22-30) mmol/L Anion Gap 12 (4-12) mmol/L BUN 23 H D (7-17) mg/dL Creatinine 1.04 H (0.7-1.0) mg/dL Estim Creat Clear Calc 47 ml/min Estimated GFR 57 L (59 - ) Glucose 124 H (65-110) mg/dL Calcium 9.6 (8.4-10.2) mg/dL Magnesium 1.8 (1.6-2.3) mg/dL Total Bilirubin 1.1 (0.2-1.3) mg/dL AST 31 (14-36) U/L ALT 19 (6-35) U/L Alkaline Phosphatase 95 (38-126) U/L Troponin I 0.080 H* (0.000-0.034) ng/mL NT-Pro-B Natriuret Pep > 06145 H (19.9-100) pg/mL Total Protein 8.0 (6.3-8.2) g/dL Albumin 4.7 (3.5-5.1) g/dL Lipase 61 (23-300) U/L Influenza A (RT-PCR) Negative (Negative) Influenza B (RT-PCR) Negative (Negative) RSV (RT-PCR) Negative (Negative) SARS-CoV-2 RNA (RT-PCR) Negative (Negative) <Maria Del Carmen Fabian PA-C - Last Filed: 10/21/24 12:59> Lab Results 10/18/24 Range/Units 17:04 WBC 13.4 H (4.5-10.0) K/mm3 RBC 5.18 (4.2-5.4) M/mm3 Hgb 15.8 H (12.0-15.0) g/dL Hct 44.7 (37.0-47.0) % MCV 86.3 (80-100) fl MCH 30.5 (26-34) pg MCHC 35.3 (32-36) g/dl RDW 12.3 (11.5-14.5) % Plt Count 228 (150-375) k/mm3 MPV 12.3 H (7.4-10.4) fl Immature Gran % (Auto) 0.3 (0-0.5) % Neut % (Auto) 77.9 H (45.5-73.1) % Lymph % (Auto) 11.4 L (18.3-44.2) % [place] % (Auto) 9.4 H (2.6-8.5) % Eos % (Auto) 0.6 (0-4.4) % Baso % (Auto) 0.4 (0.2-1.2) % Lymph # (Auto) 1.53 (0.9-3.2) K/mm3 [place] # (Auto) 1.3 H (0.1-0.6) K/mm3 Eos # (Auto) 0.1 (0-0.3) K/mm3 Baso # (Auto) 0.1 (0.0-0.1) K/mm3 Abs Immat Gran (auto) 0.04 H (0.00-0.031) K/mm3 Absolute Neuts (auto) 10.5 H (1.3-6.7) K/mm3 Absolute Nucleated RBC 0.000 (0.0-0.012) K/mm3 Nucleated RBC % 0.0 (0.0-0.2) % PT 13.2 (11.1-14.7) Seconds INR 1.0 APTT 26.1 (22.3-36.8) Seconds Sodium 132 L (137-145) mmol/L Potassium 2.9 L (3.4-5.0) mmol/L Chloride 90 L (98-107) mmol/L Carbon Dioxide 30 (22-30) mmol/L Anion Gap 12 (4-12) mmol/L BUN 23 H D (7-17) mg/dL Creatinine 1.04 H (0.7-1.0) mg/dL Estim Creat Clear Calc 47 ml/min Estimated GFR 57 L (59 - ) Glucose 124 H (65-110) mg/dL Calcium 9.6 (8.4-10.2) mg/dL Magnesium 1.8 (1.6-2.3) mg/dL Total Bilirubin 1.1 (0.2-1.3) mg/dL AST 31 (14-36) U/L ALT 19 (6-35) U/L Alkaline Phosphatase 95 (38-126) U/L Troponin I 0.080 H* (0.000-0.034) ng/mL NT-Pro-B Natriuret Pep > 09140 H (19.9-100) pg/mL Total Protein 8.0 (6.3-8.2) g/dL Albumin 4.7 (3.5-5.1) g/dL Lipase 61 (23-300) U/L Influenza A (RT-PCR) Negative (Negative) Influenza B (RT-PCR) Negative (Negative) RSV (RT-PCR) Negative (Negative) SARS-CoV-2 RNA (RT-PCR) Negative (Negative) <Collin Orozco PA-C - Last Filed: 10/19/24 02:25> Lab Results 10/18/24 Range/Units 17:04 WBC 13.4 H (4.5-10.0) K/mm3 RBC 5.18 (4.2-5.4) M/mm3 Hgb 15.8 H (12.0-15.0) g/dL Hct 44.7 (37.0-47.0) % MCV 86.3 (80-100) fl MCH 30.5 (26-34) pg MCHC 35.3 (32-36) g/dl RDW 12.3 (11.5-14.5) % Plt Count 228 (150-375) k/mm3 MPV 12.3 H (7.4-10.4) fl Immature Gran % (Auto) 0.3 (0-0.5) % Neut % (Auto) 77.9 H (45.5-73.1) % Lymph % (Auto) 11.4 L (18.3-44.2) % [place] % (Auto) 9.4 H (2.6-8.5) % Eos % (Auto) 0.6 (0-4.4) % Baso % (Auto) 0.4 (0.2-1.2) % Lymph # (Auto) 1.53 (0.9-3.2) K/mm3 [place] # (Auto) 1.3 H (0.1-0.6) K/mm3 Eos # (Auto) 0.1 (0-0.3) K/mm3 Baso # (Auto) 0.1 (0.0-0.1) K/mm3 Abs Immat Gran (auto) 0.04 H (0.00-0.031) K/mm3 Absolute Neuts (auto) 10.5 H (1.3-6.7) K/mm3 Absolute Nucleated RBC 0.000 (0.0-0.012) K/mm3 Nucleated RBC % 0.0 (0.0-0.2) % PT 13.2 (11.1-14.7) Seconds INR 1.0 APTT 26.1 (22.3-36.8) Seconds Sodium 132 L (137-145) mmol/L Potassium 2.9 L (3.4-5.0) mmol/L Chloride 90 L (98-107) mmol/L Carbon Dioxide 30 (22-30) mmol/L Anion Gap 12 (4-12) mmol/L BUN 23 H D (7-17) mg/dL Creatinine 1.04 H (0.7-1.0) mg/dL Estim Creat Clear Calc 47 ml/min Estimated GFR 57 L (59 - ) Glucose 124 H (65-110) mg/dL Calcium 9.6 (8.4-10.2) mg/dL Magnesium 1.8 (1.6-2.3) mg/dL Total Bilirubin 1.1 (0.2-1.3) mg/dL AST 31 (14-36) U/L ALT 19 (6-35) U/L Alkaline Phosphatase 95 (38-126) U/L Troponin I 0.080 H* (0.000-0.034) ng/mL NT-Pro-B Natriuret Pep > 42617 H (19.9-100) pg/mL Total Protein 8.0 (6.3-8.2) g/dL Albumin 4.7 (3.5-5.1) g/dL Lipase 61 (23-300) U/L Influenza A (RT-PCR) Negative (Negative) Influenza B (RT-PCR) Negative (Negative) RSV (RT-PCR) Negative (Negative) SARS-CoV-2 RNA (RT-PCR) Negative (Negative) <Jose Anderson MD - Last Filed: 10/19/24 03:10> Imaging Data Radiologist's impression: ITS Impressions Forearm X-Ray 10/18/24 16:37 IMPRESSION: No acute fracture or dislocation <Maria Del Carmen Fabian PA-C - Last Filed: 10/21/24 12:59> Critical Care Time Critical Care Time Critical Care Time: Yes <Maria Del Carmen Fabian PA-C - Last Filed: 10/21/24 12:59> Total Critical Care Time: 57 (Please refer to [facility] for attestation.) <Jose Anderson MD - Last Filed: 10/19/24 03:10> Discharge Plan Discharge Clinical Impression: Non-ST elevation HI (NSTEMI), Hypertensive emergency, Generalized weakness, Acute hypokalemia, Drug abuse, Alcohol abuse Alcohol withdrawal Qualifiers: Complication of substance-induced condition: uncomplicated Qualified Code(s): F 10.930 - Alcohol use, unspecified with withdrawal, uncomplicated <Maria Del Carmen Fabian PA-C - Last Filed: 10/21/24 12:59> Patient Disposition: Still a Patient <Maria Del Carmen Fabian PA-C - Last Filed: 10/21/24 12:59> Condition: Improved <Maria Del Carmen Fabian PA-C - Last Filed: 10/21/24 12:59> Time of Disposition: 03:10 <Maria Del Carmen Fabian PA-C - Last Filed: 10/21/24 12:59> 03:10 <Collin Orozco PA-C - Last Filed: 10/19/24 02:25> 03:10 <Jose Anderson MD - Last Filed: 10/19/24 03:10>
--- NOTE | 2024-10-18 16:23 | ECG_ITS ---
Test Date: 2024-10-18 19:30:36 Measurements Intervals [place] Rate: 85 P: 68 MT: 114 QRS: 59 QRSD: 97 T: 158 QT: 375 QTc: 446 Interpretive Statements SINUS RHYTHM WITH SHORT MT INTERVAL LEFT ATRIAL ENLARGEMENT [-0.15mV P WAVE IN V1/V2] LEFT VENTRICULAR HYPERTROPHY AND ST-T CHANGE [VOLTAGE CRITERIA PLUS ST/T ABNORMALITY] No previous ECG available for comparison Electronically Signed On 10-19-2024 13:25:02 CDT by Asher Mayorga M.D.
[2024-10-18 17:10] LABS: Basophils Absolute Auto 0.1 K/mm3 (0.0-0.1); Basophils Percent Auto 0.4 % (0.2-1.2); Eosinophils Absolute Auto 0.1 K/mm3 (0-0.3); Eosinophils Percent Auto 0.6 % (0-4.4); Hematocrit 44.7 % (37.0-47.0); Hemoglobin 15.8 g/dL (12.0-15.0); Immature Granulocyte Absolute 0.04 K/mm3 (0.00-0.031); Immature Granulocyte Percent A 0.3 % (0-0.5); Lymphocytes Absolute Auto 1.53 K/mm3 (0.9-3.2); Lymphocytes Percent Auto 11.4 % (18.3-44.2); Mean Corpuscular HGB Conc 35.3 g/dl (32-36); Mean Corpuscular Hemoglobin 30.5 pg (26-34); Mean Corpuscular Volume 86.3 fl (80-100); Mean Platelet Volume 12.3 fl (7.4-10.4); Monocytes Absolute Auto 1.3 K/mm3 (0.1-0.6); Monocytes Percent Auto 9.4 % (2.6-8.5); Neutrophils Absolute Auto 10.5 K/mm3 (1.3-6.7); Neutrophils Percent Auto 77.9 % (45.5-73.1); Platelet Count Result 228 k/mm3 (150-375); Red Blood Count 5.18 M/mm3 (4.2-5.4); Red Cell Distribution Width 12.3 % (11.5-14.5); White Blood Count 13.4 K/mm3 (4.5-10.0)
[2024-10-18 17:21] LABS: Alanine Aminotransferase 19 U/L (6-35); Albumin Level 4.7 g/dL (3.5-5.1); Alkaline Phosphatase 95 U/L (38-126); Anion Gap 12 mmol/L (4-12); Aspartate Amino Transferase 31 U/L (14-36); Bilirubin,Total 1.1 mg/dL (0.2-1.3); Blood Urea Nitrogen 23 mg/dL (7-17); Calcium 9.6 mg/dL (8.4-10.2); Carbon Dioxide 30 mmol/L (22-30); Chloride 90 mmol/L (98-107); Estimated CRCL calculation 47 ml/min; Estimated Glomerular Filt Rate 57; Glucose 124 mg/dL (65-110); Lipase 61 U/L (23-300); Potassium 2.9 mmol/L (3.4-5.0); Sodium 132 mmol/L (137-145)
[2024-10-18 17:22] LABS: Partial Thromboplastin Time 26.1 Seconds (22.3-36.8); Prothrombin Time 13.2 Seconds (11.1-14.7)
[2024-10-18 17:49] LABS: Influenza A QL RT-PCR Negative (Negative); Influenza B QL RT-PCR Negative (Negative); RSV RNA, RT-PCR Negative (Negative); SARS-CoV-2 RNA PCR Negative (Negative)
[2024-10-18 19:26] LABS: Magnesium 1.8 mg/dL (1.6-2.3)
[2024-10-18] MEDS: SODIUM CHLORIDE 0.9% IV 1,000 ML 999 ML IV CONT ×2 (20:23)
[2024-10-18] MEDS: KCL 20 MEQ/SW 100 ML 100 ML 50 MEQ IVPB (20:24)
[2024-10-18] MEDS: ONDANSETRON INJ 4 MG/2 ML VIAL IV PUSH (20:28)
[2024-10-18] MEDS: POTASSIUM CHLORIDE 20 MEQ ER TABLET 40 MEQ PO (20:28)
[2024-10-18] MEDS: LORazepam INJ (*CRX) 2 MG/ML VIAL 0.5 MG IV PUSH (20:28)
[2024-10-18 20:39] LABS: NT Pro B Type Natriuretic Pept > 30000 pg/mL (19.9-100)
[2024-10-18] MEDS: ASPIRIN 81 MG CHEWABLE TABLET 324 MG PO (21:53)
[2024-10-18] MEDS: LABETALOL HCL INJ 100 MG/20 ML VIAL 20 MG IV PUSH (21:53)
[2024-10-18] MEDS: MAGNESIUM SULF 1 GM/D5W 100 ML 1 GM/100 ML BAG IVPB (21:54)
[2024-10-18] MEDS: NITROGLYCERIN/D5W 200 MCG/ML 50 MG/250 ML BTL IV CONT (22:42)
[2024-10-18] MEDS: HEPARIN SOD/D5W 100 UNITS/ML 25,000 UNITS/250 ML BAG 6 UNITS IV CONT (22:42)
[2024-10-18] MEDS: HEPARIN SODIUM 5,000 UNITS/ML VIAL 3500 UNITS IV PUSH (22:43)
--- NOTE | 2024-10-18 23:00 | PC.NURSE ---
Dr. James updated on patient's BP, new order to hold heparin drip until blood pressures are stable.
--- NOTE | 2024-10-18 23:07 | PC.NURSE ---
per ICU Timbria stop heparin drip per icu dr until bp under control
--- NOTE | 2024-10-18 23:25 | PC.NURSE ---
This patient, Elham Bennett, was admitted to Intensive Care Unit-7. Patient/family oriented to hospital policies and general routines including ID bracelet, bed and alarms, visiting hours, pain management, procedures, bathroom and other care routines, personal items, smoking policy, room service/diet, and visiting hours. Information on how to activate the Rapid Response Team has been discussed. Patient/Family are encouraged to report perceived risks to care and to ask questions if they do not understand what they are told or what they should do.
[2024-10-19] VITALS (45 sets, daily range): BP systolic 141–222; BP diastolic 76–154; PULSE 65–95; RESP 15–22; TEMP 36.2–37.1; O2SAT 95–100; BMI 21.3
--- NOTE | 2024-10-19 | ECHO_ITS ---
Patient Info Name: Elham Bennett Age: 48 years : 1975 Gender: Female Ht: 65 in Wt: 128 lbs BSA: 1.63 m2 HR: 98 bpm BP: 147 / 76 mmHg Heart Rhythm: Sinus Rhythm Technical Quality: Fair Exam Date: 10/19/2024 9:53 AM Exam Location: Echo Lab Patient Status: Inpatient Admit Date: 10/18/2024 Staff Ordering Physician: Raheem James MD Pit Shovel Operator: Lisa Bae RDCS Attending Provider: Stalin Dueñas MD Exam Type: CA echo doppler color flow Study Info Indications - NSTEMI Complete two-dimensional, color flow and Doppler transthoracic echocardiogram is performed. Summary 1. Left ventricular chamber dimension is normal. 2. Left ventricular systolic function is normal, estimated at 55-60%. 3. There is severe concentric increased left ventricular wall thickness. 4. The left ventricular diastolic function is grade I diastolic dysfunction. 5. Right ventricular systolic function is normal. 6. Left atrial chamber dimension is mildly enlarged. 7. No significant valvular disease. Left Ventricle Left ventricular chamber dimension is normal. Left ventricular systolic function is normal, estimated at 55-60%. There is severe concentric increased left ventricular wall thickness. The left ventricular diastolic function is grade I diastolic dysfunction. Right Ventricle Right ventricular chamber dimension is normal. Right ventricular systolic function is normal. Left Atria Left atrial chamber dimension is mildly enlarged. Right Atria Right atrial chamber dimension is normal. Atrial Septum Intact interatrial septum visualized by color flow imaging. Aortic Valve The aortic valve is not well visualized. There is no aortic valve stenosis. There is no aortic valve regurgitation. Pulmonic Valve The pulmonic valve is not well visualized. There is trace pulmonic regurgitation. Mitral Valve There is trace mitral valve regurgitation. Tricuspid Valve There is trace tricuspid valve regurgitation. Pericardium/Pleural There is no pericardial effusion. Inferior Vena Cava Normal inferior vena cava with >50% collapse upon inspiration consistent with normal right atrial pressure, 3 mmHg. Aorta The aortic root size at the sinus of Valsalva is normal. Left Ventricular Outflow Tract Name Value Normal LVOT 2D LVOT Diameter 2.0 cm LVOT Doppler LVOT Peak Gradient 6 mmHg LVOT Mean Gradient 3 mmHg LVOT VTI 21 cm LVOT VTI/AV VTI Ratio 0.8 LVOT Stroke Volume 65 ml LVOT CO 14.0 l/min LVOT CI 8.6 l/min/m2 Pulmonic Valve Name Value Normal RVOT Doppler RVOT Peak Gradient 2 mmHg PV Doppler PV Peak Gradient 3 mmHg Mitral Valve Name Value Normal MV Doppler MV Decel [place] 247 cm/s2 MV PHT 74 ms MV Area (PHT) 3.0 cm2 4.0-5.0 MV Diastolic Function MV E Peak Velocity 63 cm/s MV A Peak Velocity 80 cm/s MV E/A 0.8 MV Decel Time 254 ms MV Annular TDI MV E/e' (Septal) 18.1 <=8.0 MV E/e' (Lateral) 21.0 <=8.0 MV E/e' (Average) 19.5 Tricuspid Valve Name Value Normal TV Regurgitation Doppler TR Peak Velocity 225 cm/s TR Peak Gradient 20 mmHg Estimated PAP/RSVP RA Pressure 3 mmHg <=5 PA Systolic Pressure 23 mmHg <36 RV Systolic Pressure 23 mmHg <36 Aortic Valve Name Value Normal AV Doppler AV Peak Velocity 164 cm/s AV Peak Gradient 11 mmHg AV Mean Gradient 5 mmHg AV VTI 25 cm AV Area (Cont Eq VTI) 2.6 cm2 >=3.0 AV Area (Cont Eq Farooq) 2.3 cm2 AV Regurgitation 2D LVOT Area 3.1 cm2 Ventricles Name Value Normal LV Dimensions 2D/MM IVS Diastolic Thickness (2D) 1.6 cm 0.6-1.0 LVID Diastole (2D) 4.7 cm 3.8-5.2 LVIW Diastolic Thickness (2D) 1.3 cm 0.6-0.9 LVID Systole (2D) 2.9 cm 2.2-3.5 LVOT Diameter 2.0 cm LV Mass (2D Cubed) 282.74 g 67.00-162.00 LV Mass Index (2D Cubed) 173 g/m2 43-95 Relative Wall Thickness (2D) 0.56 LV Fractional Shortening/Ejection Fraction 2D/MM LV Fractional Shortening (2D) 39 % 27-45 LV EF (2D Teicholz) 70 % 54-74 LV Diastolic Volume (4C MOD) 151 ml LV EF (4C MOD) 61 % LV Diastolic Volume (2C MOD) 131 ml LV EF (2C MOD) 64 % LV Diastolic Volume (BP MOD) 152 ml 46-106 LV Diastolic Volume Index (BP MOD) 93 ml/m2 29-61 LV Systolic Volume (BP MOD) 55 ml 14-42 LV Systolic Volume Index (BP MOD) 34 ml/m2 8-24 LV EF (BP MOD) 64 % 54-74 LV Diastolic Length (4C) 8.5 cm LV Systolic Length (4C) 6.7 cm LV Stroke Volume (4C MOD) 89 ml Atria Name Value Normal LA Dimensions LA Volume (4C A-L) 66 ml LA Volume (BP A-L) 81 ml RA Dimensions RA Area (4C) 14.9 cm2 <=18.0 Report Signatures
--- NOTE | 2024-10-19 00:25 | P.HP_ITS ---
H&P: HPI History of Present Illness Date/Time: 10/19/24 00:25 Chief Complaint: Alcohol withdrawal Hypertensive emergency Narrative: This is a 48-year-old female with history of depression, generalized anxiety disorder, hypertension, COPD, nicotine dependence, alcohol abuse, substance abuse who presented to the hospital with complaints of nausea, vomiting, and weakness. Patient states that she stopped drinking 11 days ago and then started having some nausea, vomiting and weakness. She presented for further evaluation. Her blood pressures were noted to be running high 193/122 to 212/133. She states she has not taken any blood pressure medicine in years. Workup in the hospital included a chest x-ray which was negative for any acute cardiopulmonary disease. Forearm x-ray which was negative for any acute fracture or dislocation. Head CT which was negative for any significant abnormality.. Initial labs showed a white blood cell count of 13.4, hemoglobin 15.8, INR 1.0, sodium 132, potassium 2.9, chloride 90, creatinine 1.04, EGFR 57, blood sugar 124, magnesium 1.8, troponin 0.080> 0.090> 0.087, proBNP 30704, lipase was normal at 61. Respiratory panel was negative for influenza a and B, RSV, COVID. Urine drug screen was positive for methamphetamines. UA showed turbid urine appearance, 2+ urine protein, 3+ urine blood, 1+ leukocytes, 6-10 urine RBC, 21-50 urine WBC, moderate urine epithelial cells, 4+ urine bacteria. EKG showed normal sinus rhythm with left ventricular hypertrophy and left atrial enlargement with a rate of 85, QTC 446. Patient was given 2 L normal saline, 60 mEq of potassium, Zofran, Ativan, 324 mg aspirin, 1 g of magnesium, 10 mg IV push hydralazine, 20 mg IV push labetalol, and a nicardipine drip at 5 milligram/hour as her blood pressures did not stabilize with the hydralazine or the labetalol. Heparin infusion is on hold per training mgr recommendation. She is being admitted to ICU for hypertensive emergency and alcohol withdrawal. Review of Systems Review of Systems: All systems reviewed & are unremarkable except as noted in HPI and below PMFSH Past Medical History Medical History Depression (11/08/15) Cellulitis of foot Nicotine dependence, cigarettes, with unspecified nicotine-induced disorders JANAE (generalized anxiety disorder) Hypertension Surgical History Surgical History History of endometrial ablation History of tonsillectomy and adenoidectomy Family History Family History Mother JANAE (generalized anxiety disorder) COPD (chronic obstructive pulmonary disease) Hypertension Father Hypertension Lung cancer Bone cancer Brain tumor Social History Social History Smoking packs per day: 1 Smoking cigarettes per day: 20.0 Years smoked: 26 Smoking pack-years: 26.00 Smoking status: Current every day smoker Tobacco type: cigarettes Second hand tobacco smoke exposure: Yes Additional smoking assessment comments: She has smoked 1 pack of cigarettes per day since age 18. Alcohol intake: current Drinks per week: 1 Substance use: former Substance use type: marijuana, crack/cocaine and methamphetamine Last use: 10/08/2024 Do You Feel Safe in your Home?: Yes Lack of Transportation: YES Lack of Food: Often True Current Housing: I Have Housing Concerned About Future Housing: No Difficulty Paying Gas/Electric Bills: YES Difficulty Paying for Meds: No Currently Unemployed: YES Education: Trade/Vocational Certificate Difficulty w/ Childcare or Family Care: No Living arrangements: alone Additional living arrangements comments: She is been since 2019. She has 2 children. Her daughter moved out when her and her daughter now lives with her grandparents. 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 Her parents are planning to moved to assisted living March 2022. Occupation/Education: unemployed Gender identity (if verbalized by the patient): Female Spiritual care concerns: No Meds Home Medications and Allergies Home Medications ?Medication ?Instructions ?Recorded ?Confirmed ?Type albuterol sulfate 90 mcg/actuation 90 mcg inhalation Q4-6H PRN 02/14/22 10/18/24 History aerosol inhaler Shortness Of Breath Or Wheezing lisinopril 40 mg tablet 40 mg PO DAILY 02/14/22 10/18/24 History ondansetron HCl 4 mg tablet 4 mg PO Q8H PRN nausea and 12/27/22 10/18/24 Rx vomiting 4 days #10 tabs azithromycin 250 mg tablet 250 mg PO DAILY 10 days #10 tabs 12/28/22 10/18/24 Rx (Zithromax Z-Tristian) capsaicin 0.075 % topical cream 1 applic topical TID 1 week #57 12/28/22 10/18/24 Rx grams lorazepam 1 mg tablet (Ativan) 1 mg PO BID PRN nausea and 12/28/22 10/18/24 Rx vomiting #20 tabs metoclopramide HCl 5 mg tablet 5 mg PO DAILY 2 weeks #14 tabs 12/28/22 10/18/24 Rx (Reglan) Allergies Allergy/AdvReac Type Severity Reaction Status Date / Time penicillin G Allergy Severe mouth and Verified 10/18/24 23:35 throat swell latex Allergy Intermediate Unknown Verified 10/18/24 23:35 levofloxacin (Levaquin) Allergy Intermediate Itching Verified 10/18/24 23:35 Iodinated Contrast Media Allergy Mild sneezing, Verified 10/18/24 23:35 stuffy head mupirocin Allergy Rash Verified 10/18/24 23:35 Sulfa (Sulfonamide AdvReac Mild Nausea and Verified 10/18/24 23:35 Antibiotics) Vomiting Vital Signs Vital Signs - 24 hr 10/18/24 16:14 10/18/24 19:21 10/18/24 19:22 Temperature 98.3 F Pulse Rate 100 Respiratory Rate 20 Blood Pressure 193/120 H 221/122 H Pulse Oximetry 97 85 L 100 Oxygen Delivery Room Air 10/18/24 19:25 10/18/24 19:32 10/18/24 19:33 Temperature Pulse Rate Respiratory Rate Blood Pressure 224/132 H 201/170 H Pulse Oximetry 99 Oxygen Delivery 10/18/24 19:41 10/18/24 19:45 10/18/24 19:47 Temperature Pulse Rate 100 Respiratory Rate Blood Pressure 221/138 H Pulse Oximetry 100 Oxygen Delivery 10/18/24 20:00 10/18/24 20:01 10/18/24 20:31 Temperature Pulse Rate Respiratory Rate Blood Pressure 235/141 H 213/130 H Pulse Oximetry 100 100 100 Oxygen Delivery 10/18/24 20:32 10/18/24 20:45 10/18/24 21:00 Temperature Pulse Rate 89 90 Respiratory Rate 19 21 H Blood Pressure Pulse Oximetry 100 84 L Oxygen Delivery 10/18/24 21:01 10/18/24 21:15 10/18/24 21:18 Temperature Pulse Rate 83 100 100 Respiratory Rate 18 21 H 12 Blood Pressure 234/146 H 225/118 H Pulse Oximetry 75 L Oxygen Delivery 10/18/24 21:30 10/18/24 21:56 10/18/24 22:00 Temperature Pulse Rate 103 H 93 82 Respiratory Rate 21 H 20 20 Blood Pressure Pulse Oximetry Oxygen Delivery 10/18/24 22:01 10/18/24 22:02 10/18/24 22:04 Temperature Pulse Rate 81 81 81 Respiratory Rate 12 25 H 13 Blood Pressure 212/133 H 222/132 H Pulse Oximetry 94 Oxygen Delivery 10/18/24 22:05 10/18/24 22:18 10/18/24 22:22 Temperature Pulse Rate 82 81 84 Respiratory Rate 22 H 21 H 15 Blood Pressure 170/148 H Pulse Oximetry 90 Oxygen Delivery 10/18/24 22:26 10/18/24 22:34 10/18/24 22:36 Temperature Pulse Rate 85 85 84 Respiratory Rate 18 18 18 Blood Pressure 193/142 H 163/112 H Pulse Oximetry 94 Oxygen Delivery 10/18/24 22:41 10/18/24 22:42 10/18/24 22:48 Temperature Pulse Rate 83 84 90 Respiratory Rate 21 H 18 Blood Pressure 186/107 H 186/107 H 208/107 H Pulse Oximetry 99 100 Oxygen Delivery 10/18/24 22:48 10/18/24 22:51 10/18/24 22:52 Temperature Pulse Rate 88 90 90 Respiratory Rate 22 H 21 H 20 Blood Pressure 191/85 H Pulse Oximetry 100 100 Oxygen Delivery 10/18/24 23:00 10/18/24 23:03 10/18/24 23:30 Temperature Pulse Rate 90 90 84 Respiratory Rate 19 21 H Blood Pressure 195/105 H 215/129 H Pulse Oximetry 98 94 Oxygen Delivery 10/18/24 23:31 10/18/24 23:45 10/19/24 00:00 Temperature 98.6 F Pulse Rate 84 87 83 Respiratory Rate 20 Blood Pressure 197/117 H 209/120 H 211/127 H Pulse Oximetry 99 Oxygen Delivery 10/19/24 00:00 10/19/24 00:00 Temperature 98.6 F Pulse Rate 88 Respiratory Rate 18 Blood Pressure 179/109 H Pulse Oximetry 98 Oxygen Delivery Room Air Exam Narrative: General: In no acute distress, well nourished Head: atraumatic, no encephalopathy Eyes: EOMI, PERRLA, sclera clear ENT: moist mucous membranes, nasal passages clear Neck: supple, no JVD, no adenopathy, trachea midline Cardiac: Normal S1 and S2. No murmur, gallops or friction rubs, peripheral pulses intact. Respiratory: Lungs clear to auscultation, no adventitious lung sounds Gastrointestinal: soft, non-distended, non-tender, normoactive bowel sounds. : voiding without difficulty. Extremities: moves all extremities well, no edema, good ROM, strength 5/5 Skin: clean, dry, intact. No wounds or lesions. Neuro: Alert and oriented x4, cranial nerves intact, no neuro deficits. Psych: normal mood, normal affect, interactive H&P: Results Labs Labs: Short CBC 10/18/24 Range/Units 17:04 WBC 13.4 H (4.5-10.0) K/mm3 Hgb 15.8 H (12.0-15.0) g/dL Hct 44.7 (37.0-47.0) % Plt Count 228 (150-375) k/mm3 BMP 10/18/24 17:04 Sodium 132 L Potassium 2.9 L Chloride 90 L Carbon Dioxide 30 BUN 23 H D Creatinine 1.04 H Glucose 124 H Calcium 9.6 Cardiac Enzymes 10/18/24 Range/Units 17:04 Troponin I 0.080 H* (0.000-0.034) ng/mL Liver Function 10/18/24 Range/Units 17:04 Total Bilirubin 1.1 (0.2-1.3) mg/dL AST 31 (14-36) U/L ALT 19 (6-35) U/L Alkaline Phosphatase 95 (38-126) U/L Albumin 4.7 (3.5-5.1) g/dL Imaging Chest x-ray: Radiologist's impression: EXAMINATION: XR chest 1V portable DATE: 10/18/2024 20:55 INDICATION: Chest pain. TECHNIQUE: A single frontal view of the chest was obtained on 2 radiographs. COMPARISON: Chest 2 views 03/15/2021 FINDINGS: There is no pneumonia, pleural effusion, or pneumothorax. The heart size is normal. IMPRESSION: 1. No acute cardiopulmonary disease. Reviewed, dictated and finalized at location A. Left forearm x-ray: Radiologist's impression: HISTORY: injury, contusion BRUISING TO FOREARM COMPARISON: None TECHNIQUE: 2 views of the left forearm were performed FINDINGS: No acute or subacute fracture. Joint spaces are preserved and alignment is maintained. Soft tissues are unremarkable without radiopaque foreign body or significant calcification. Age-appropriate mineralization. IMPRESSION: No acute fracture or dislocation Reviewed, dictated and finalized at location A. CT scan - head: Radiologist's impression: Non-contrast Head CT History: Intracranial hemorrhage Technique: Axial non-contrast imaging of the brain was performed. Dose reduction technique was used on this scan by utilizing automated exposure control and iterative reconstruction technique. The dose-length product (DLP) was 605.33 mGy-cm. Findings: There is no evidence of intracranial hemorrhage, mass lesion, or acute infarct. Brain parenchyma appears normal. The ventricles and subarachn oid spaces are normal in size. The calvarium appears normal. The visualized paranasal sinuses and mastoid air cells are clear. Impression: No significant abnormality seen. Reviewed, dictated and finalized at location M. Assessment and Plan Assessment and plan (1) NSTEMI (non-ST elevated myocardial infarction): Code(s): I21.4 - Non-ST elevation (NSTEMI) myocardial infarction Status: Acute Assessment and Plan: * Initial troponin 0.080> 0.090> 0.087 * Continue to trend * Heparin drip on hold per training mgr recommendation, uncontrolled hypertension * Cardiology consulted * Echocardiogram ordered * Continue antiemetics (2) Hypertensive emergency: Code(s): I16.1 - Hypertensive emergency Status: Acute Assessment and Plan: * Blood pressures ranging 179/109-221/122 * Patient was given IV push hydralazine and labetalol in the ED however this was not successful in decreasing her blood pressure * Continue nitroglycerin infusion * Creatinine bumped to 1.04, EGFR 57 * Baseline creatinine 0.83 with an EGFR greater than 60 (3) Alcohol withdrawal: Code(s): F10.939 - Alcohol use, unspecified with withdrawal, unspecified Status: Acute Assessment and Plan: * Start CIWA protocol * Banana bag and thiamine 300mg ordered daily * Librium ordered * Ativan PRN * Continue Neuro checks q2h * Admitted to ICU * Seizure precautions * Head CT was negative for any acute intracranial process (4) Dehydration: Code(s): E86.0 - Dehydration Status: Acute Assessment and Plan: * Patient was given 2 L normal saline while in the ED * Continue normal saline at 100 mL/hour for hydration * Monitor electrolytes (5) Acute hypokalemia: Code(s): E87.6 - Hypokalemia Status: Acute Assessment and Plan: * Initial potassium 2.9 * Patient was given 60 mEq of potassium while in the ED * Continue to trend (6) Substance abuse: Code(s): F19.10 - Other psychoactive substance abuse, uncomplicated Status: Acute Assessment and Plan: * History of marijuana, crack/cocaine, and methamphetamine abuse * Last used 10/08/2024 * Urine drug screen positive for methamphetamines (7) Hypomagnesemia: Code(s): E83.42 - Hypomagnesemia Status: Acute Assessment and Plan: * Magnesium 1.8 * Patient was given 1 g of magnesium while in the ED * Continue to trend (8) Protein calorie malnutrition: Code(s): E46 - Unspecified protein-calorie malnutrition Status: Acute Assessment and Plan: * BMI 21.4, 58.2 kg * Moderate to severe protein calorie malnutrition * Dietitian consulted * Advance diet to a regular diet (9) Nicotine dependence, cigarettes, with unspecified nicotine-induced disorders: Code(s): F17.219 - Nicotine dependence, cigarettes, with unspecified nicotine-induced disorders Status: Acute Assessment and Plan: * Patient smokes 1 pack per day times 20 years Quality VTE Prophylaxis VTE prophylaxis: pharmacologic ordered Hospitalist MIPS Advance Care Plan I have confirmed that the patient's Advanced Care Plan is present, code status is documented, or surrogate decision maker is listed in patient medical record.: Yes Medication Reconciliation I have utilized all available resources to obtain, update and review the patients current medications (includes all prescriptions, OTC, herbals, cannabis, and nutritional supplements).: Yes
--- NOTE | 2024-10-19 00:40 | PC.NURSE ---
Dr. James notified about pt's blood pressures. with orders to hold heparin drip until SBP is sustaining between 160-170s, d/c nicardipine drip and titrate nitro drips per protocol.
[2024-10-19] MEDS: HYDROmorphone HCL INJ (*CRX) 1 MG/ML SYR 0.5 MG IV PUSH (00:53)
[2024-10-19] MEDS: LORazepam INJ (*CRX) 2 MG/ML VIAL IV PUSH ×2 (00:53→06:45)
[2024-10-19] MEDS: THIAMINE HCL INJ 100 MG, FOLIC ACID INJ 1 MG, MAGNESIUM SULFATE INJ 1 GM, MULTIVITAMINS... 125 MG IV CONT (01:14)
[2024-10-19 01:27] LABS: MRSA (PCR) NOT DETECTED (NOT DETECTE)
[2024-10-19 01:54] LABS: Add Urine Microscopic? YES; Appearance Urine Turbid (Clear); Bacteria Urine 4+ /hpf; Bilirubin Urine Negative (Negative); Blood Urine 3+ (Negative); Color Urine Yellow (Yellow); Glucose Urine UA Negative (Negative); Ketones Urine Negative (Negative); Leukocyte Esterase Ur 1+ LEU/UL (Negative); Nitrate Urine Negative (Negative); Non Pathogenic Casts 0-2; Protein Urine 2+ mg/dL (Negative); Specific Grav Ur 1.011 (1.001-1.035); Squamous Epithelial Cell Urine Moderate /hpf (Few); WBC Urine 21-50 /hpf (0-3); pH Urine 5.5 (5.0-9.0)
[2024-10-19 02:11] LABS: Amphetamine Screen Urine Positive (Negative); Barbiturate Screen Urine Negative (Negative); Benzodiazepines Screen Urine Negative (Negative); Cannabinoid Screen Urine Negative (Negative); Cocaine Screen Urine Negative (Negative); Methadone Screen Urine Negative (Negative); Opiate Screen Urine Negative (Negative); Phencyclidine Screen Urine Negative (Negative)
[2024-10-19 03:37] LABS: Basophils Percent Auto 0.4 % (0.2-1.2); Eosinophils Absolute Auto 0.1 K/mm3 (0-0.3); Hematocrit 33.7 % (37.0-47.0); Hemoglobin 11.8 g/dL (12.0-15.0); Immature Granulocyte Absolute 0.04 K/mm3 (0.00-0.031); Immature Granulocyte Percent A 0.4 % (0-0.5); Lymphocytes Absolute Auto 1.61 K/mm3 (0.9-3.2); Lymphocytes Percent Auto 15.2 % (18.3-44.2); Mean Corpuscular Hemoglobin 31.1 pg (26-34); Mean Corpuscular Volume 88.7 fl (80-100); Mean Platelet Volume 10.7 fl (7.4-10.4); Monocytes Absolute Auto 0.9 K/mm3 (0.1-0.6); Monocytes Percent Auto 8.4 % (2.6-8.5); Neutrophils Absolute Auto 7.9 K/mm3 (1.3-6.7); Neutrophils Percent Auto 74.6 % (45.5-73.1); Platelet Count Result 166 k/mm3 (150-375); Red Cell Distribution Width 12.4 % (11.5-14.5); White Blood Count 10.6 K/mm3 (4.5-10.0)
--- NOTE | 2024-10-19 03:40 | PC.NURSE ---
Zaida Lott, hospitalist, notified about pt's continued high blood pressures. No new orders at this time.
[2024-10-19 03:49] LABS: Alanine Aminotransferase 14 U/L (6-35); Albumin Level 3.2 g/dL (3.5-5.1); Alkaline Phosphatase 78 U/L (38-126); Anion Gap 7 mmol/L (4-12); Aspartate Amino Transferase 24 U/L (14-36); Bilirubin,Total 0.8 mg/dL (0.2-1.3); Blood Urea Nitrogen 20 mg/dL (7-17); Calcium 7.7 mg/dL (8.4-10.2); Carbon Dioxide 27 mmol/L (22-30); Chloride 100 mmol/L (98-107); Estimated CRCL calculation 63 ml/min; Estimated Glomerular Filt Rate > 60; Glucose 99 mg/dL (65-110); Magnesium 2.3 mg/dL (1.6-2.3); Potassium 3.1 mmol/L (3.4-5.0); Sodium 134 mmol/L (137-145)
[2024-10-19 04:04] LABS: Troponin I 0.087 ng/mL (0.000-0.034)
[2024-10-19] MEDS: chlordiazePOXIDE (*CRX) 25 MG CAPSULE PO (05:20)
[2024-10-19] MEDS: POTASSIUM CHLORIDE 20 MEQ ER TABLET 40 MEQ PO (05:20)
[2024-10-19] MEDS: NITROGLYCERIN/D5W 200 MCG/ML 50 MG/250 ML BTL 28.5 MG IV CONT (06:30)
[2024-10-19 08:42] LABS: Hematocrit 33.5 % (37.0-47.0); Hemoglobin 11.7 g/dL (12.0-15.0); Mean Corpuscular HGB Conc 34.9 g/dl (32-36); Mean Corpuscular Volume 88.6 fl (80-100); Mean Platelet Volume 12.1 fl (7.4-10.4); Platelet Count Result 170 k/mm3 (150-375); Red Blood Count 3.78 M/mm3 (4.2-5.4); Red Cell Distribution Width 12.5 % (11.5-14.5); White Blood Count 13.3 K/mm3 (4.5-10.0)
[2024-10-19] MEDS: lisinopriL 20 MG TABLET 40 MG PO (08:56)
[2024-10-19] MEDS: ASPIRIN 81 MG ENTERIC TABLET PO (08:57)
[2024-10-19] MEDS: carvediloL 6.25 MG TABLET PO ×2 (08:57→21:06)
[2024-10-19] MEDS: LABETALOL HCL INJ 100 MG/20 ML VIAL 20 MG IV PUSH (09:41)
[2024-10-19] MEDS: POTASSIUM CHLORIDE INJ 40 MEQ in SODIUM CHLORIDE 0.9% IV 500 ML 130 MEQ IVPB (09:52)
[2024-10-19] MEDS: THIAMINE HCL INJ 300 MG in SODIUM CHLORIDE 0.9% IV 100 ML 206 MG IVPB (09:54)
[2024-10-19] MEDS: FOLIC ACID 1 MG/0.2 ML INJ IV PUSH (09:55)
--- NOTE | 2024-10-19 10:23 | P.CONIN_ITS ---
Assessment and Plan Assessment and plan (1) Substance abuse: Code(s): F19.10 - Other psychoactive substance abuse, uncomplicated Status: Acute Assessment and Plan: Patient has history of alcohol, tobacco and drug abuse UDS positive methamphetamine Received Ativan Monitor (2) Uncontrolled hypertension: Code(s): I10 - Essential (primary) hypertension Status: Acute Assessment and Plan: Patient was started on nitroglycerin infusion on presentation Patient received Coreg and lisinopril this morning Wean off nitroglycerin infusion P.r.n. labetalol and hydralazine to keep systolic below 180 (3) NSTEMI (non-ST elevated myocardial infarction): Code(s): I21.4 - Non-ST elevation (NSTEMI) myocardial infarction Status: Acute Assessment and Plan: Aspirin and heparin infusion Coreg and lisinopril Check echo Serial troponin Cardiology consult EKG reviewed (4) Acute hypokalemia: Code(s): E87.6 - Hypokalemia Status: Acute Assessment and Plan: Potassium replacement ordered. Repeat BMP ordered (5) Alcohol abuse: Code(s): F10.10 - Alcohol abuse, uncomplicated Status: Acute Assessment and Plan: Patient has history of alcohol abuse. Last reported drink was 11 days ago as per patient's report in the ER. Patient received Librium and Ativan. Not sure patient actually was withdrawing or over the symptoms were secondary to meth and headache secondary to nitroglycerin infusion Patient to drowsy now. Will hold Librium and Ativan at this time and re- evaluate once patient is more awake and alert Thiamine and folic acid Plan DVT prophylaxis -heparin infusion Nutrition -diet ordered Code Status - Full Code Total Critical Care Time - 30 minutes Due to a high probability of clinically significant, life threatening deterioration, the patient required my highest level of preparedness to intervene emergently and I personally spent this critical care time directly and personally managing the patient. This critical care time included obtaining a history; examining the patient; pulse oximetry; ordering and review of studies; arranging urgent treatment with development of a management plan; evaluation of patient's response to treatment; frequent reassessment; and discussions with other providers. It was exclusive of separately billable procedures and treating other patients and teaching time. Please see Assessment and Plan section and the rest of the note for further information on patient assessment and treatment Chemical Production Technician Consult Note Consult date: 10/19/24 Reason for consult: , uncontrolled hypertension, elevated Tylenol on HPI: Elham Bennett is a 48 year old female with past medical history of depression hypertension, cellulitis, drug abuse, alcohol abuse, smoking, COPD presented yesterday with chief complaint of nausea vomiting and weakness. In the ER patient reported that she had quit drinking 11 days ago and has been having some nausea vomiting and weakness. On presentation patient was found to be hypertensive with systolic blood pressure ranging from 190 3-212. She is currently not taking any blood pressure medication Workup in the hospital showed following chest x-ray which was negative for any acute cardiopulmonary disease. Forearm x-ray which was negative for any acute fracture or dislocation. Head CT which was negative for any significant abnormality.. Initial labs showed a white blood cell count of 13.4, hemoglobin 15.8, INR 1.0, sodium 132, potassium 2.9, chloride 90, creatinine 1.04, EGFR 57, blood sugar 124, magnesium 1.8, troponin 0.080> 0.090> 0.087, proBNP 16551, lipase was normal at 61. Respiratory panel was negative for influenza a and B, RSV, COVID. Urine drug screen was positive for methamphetamines. UA showed turbid urine appearance, 2+ urine protein, 3+ urine blood, 1+ leukocytes, 6-10 urine RBC, 21-50 urine WBC, moderate urine epithelial cells, 4+ urine bacteria. EKG showed normal sinus rhythm with left ventricular hypertrophy and left atrial enlargement with a rate of 85, QTC 446. Patient was given 2 L normal saline, 60 mEq of potassium, Zofran, Ativan, 324 mg aspirin, 1 g of magnesium, 10 mg IV push hydralazine, 20 mg IV push labetalol, and and was started on nitroglycerin drip. Cardiology was consulted in the ER patient was started on heparin infusion once a blood pressure improved. Overnight patient received Dilaudid for pain and Ativan early this morning. When I evaluated the patient this morning she after receiving Ativan was fairly drowsy. She was sleeping with loud snoring. Patient would wake up on stimulation follow commands but could not provide any history as she kept on falling asleep on asking any questions. History was obtained from chart review and physician sign-out Review of Systems 2 Review of Systems: ROS unobtainable: Yes unobtainable due to medical condition and unobtainable due to mental status PMFSH Past Medical History Medical History Depression (11/08/15) Cellulitis of foot Nicotine dependence, cigarettes, with unspecified nicotine-induced disorders JANAE (generalized anxiety disorder) Hypertension Surgical History Surgical History History of endometrial ablation History of tonsillectomy and adenoidectomy Family History Family History Mother JANAE (generalized anxiety disorder) COPD (chronic obstructive pulmonary disease) Hypertension Father Hypertension Lung cancer Bone cancer Brain tumor Social History Social History Smoking packs per day: 1 Smoking cigarettes per day: 20.0 Years smoked: 26 Smoking pack-years: 26.00 Smoking status: Current every day smoker Tobacco type: cigarettes Second hand tobacco smoke exposure: Yes Additional smoking assessment comments: She has smoked 1 pack of cigarettes per day since age 18. Alcohol intake: current Drinks per week: 1 Substance use: former Substance use type: marijuana, crack/cocaine and methamphetamine Last use: 10/08/2024 Do You Feel Safe in your Home?: Yes Lack of Transportation: YES Lack of Food: Often True Current Housing: I Have Housing Concerned About Future Housing: No Difficulty Paying Gas/Electric Bills: YES Difficulty Paying for Meds: No Currently Unemployed: YES Education: Trade/Vocational Certificate Difficulty w/ Childcare or Family Care: No Living arrangements: alone Additional living arrangements comments: She is been since 2019. She has 2 children. Her daughter moved out when her and her daughter now lives with her grandparents. 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 Her parents are planning to moved to assisted living March 2022. Occupation/Education: unemployed Gender identity (if verbalized by the patient): Female Spiritual care concerns: No Meds Home Medications and Allergies Home Medications ?Medication ?Instructions ?Recorded ?Confirmed ?Type albuterol sulfate 90 mcg/actuation 90 mcg inhalation Q4-6H PRN 02/14/22 10/18/24 History aerosol inhaler Shortness Of Breath Or Wheezing lisinopril 40 mg tablet 40 mg PO DAILY 02/14/22 10/18/24 History ondansetron HCl 4 mg tablet 4 mg PO Q8H PRN nausea and 12/27/22 10/18/24 Rx vomiting 4 days #10 tabs azithromycin 250 mg tablet 250 mg PO DAILY 10 days #10 tabs 12/28/22 10/18/24 Rx (Zithromax Z-Tristian) capsaicin 0.075 % topical cream 1 applic topical TID 1 week #57 12/28/22 10/18/24 Rx grams lorazepam 1 mg tablet (Ativan) 1 mg PO BID PRN nausea and 12/28/22 10/18/24 Rx vomiting #20 tabs metoclopramide HCl 5 mg tablet 5 mg PO DAILY 2 weeks #14 tabs 12/28/22 10/18/24 Rx (Reglan) Allergies Allergy/AdvReac Type Severity Reaction Status Date / Time penicillin G Allergy Severe mouth and Verified 10/18/24 23:35 throat swell latex Allergy Intermediate Unknown Verified 10/18/24 23:35 levofloxacin (Levaquin) Allergy Intermediate Itching Verified 10/18/24 23:35 Iodinated Contrast Media Allergy Mild sneezing, Verified 10/18/24 23:35 stuffy head mupirocin Allergy Rash Verified 10/18/24 23:35 Sulfa (Sulfonamide AdvReac Mild Nausea and Verified 10/18/24 23:35 Antibiotics) Vomiting Vital Signs Vital Signs - 24 hr 10/18/24 16:14 10/18/24 19:21 10/18/24 19:22 Temperature 36.8 C Pulse Rate 100 Respiratory Rate 20 Blood Pressure 193/120 H 221/122 H Pulse Oximetry 97 85 L 100 Oxygen Delivery Room Air 10/18/24 19:25 10/18/24 19:32 10/18/24 19:33 Temperature Pulse Rate Respiratory Rate Blood Pressure 224/132 H 201/170 H Pulse Oximetry 99 Oxygen Delivery 10/18/24 19:41 10/18/24 19:45 10/18/24 19:47 Temperature Pulse Rate 100 Respiratory Rate Blood Pressure 221/138 H Pulse Oximetry 100 Oxygen Delivery 10/18/24 20:00 10/18/24 20:01 10/18/24 20:31 Temperature Pulse Rate Respiratory Rate Blood Pressure 235/141 H 213/130 H Pulse Oximetry 100 100 100 Oxygen Delivery 10/18/24 20:32 10/18/24 20:45 10/18/24 21:00 Temperature Pulse Rate 89 90 Respiratory Rate 19 21 H Blood Pressure Pulse Oximetry 100 84 L Oxygen Delivery 10/18/24 21:01 10/18/24 21:15 10/18/24 21:18 Temperature Pulse Rate 83 100 100 Respiratory Rate 18 21 H 12 Blood Pressure 234/146 H 225/118 H Pulse Oximetry 75 L Oxygen Delivery 10/18/24 21:30 10/18/24 21:56 10/18/24 22:00 Temperature Pulse Rate 103 H 93 82 Respiratory Rate 21 H 20 20 Blood Pressure Pulse Oximetry Oxygen Delivery 10/18/24 22:01 10/18/24 22:02 10/18/24 22:04 Temperature Pulse Rate 81 81 81 Respiratory Rate 12 25 H 13 Blood Pressure 212/133 H 222/132 H Pulse Oximetry 94 Oxygen Delivery 10/18/24 22:05 10/18/24 22:18 10/18/24 22:22 Temperature Pulse Rate 82 81 84 Respiratory Rate 22 H 21 H 15 Blood Pressure 170/148 H Pulse Oximetry 90 Oxygen Delivery 10/18/24 22:26 10/18/24 22:34 10/18/24 22:36 Temperature Pulse Rate 85 85 84 Respiratory Rate 18 18 18 Blood Pressure 193/142 H 163/112 H Pulse Oximetry 94 Oxygen Delivery 10/18/24 22:41 10/18/24 22:42 10/18/24 22:48 Temperature Pulse Rate 83 84 90 Respiratory Rate 21 H 18 Blood Pressure 186/107 H 186/107 H 208/107 H Pulse Oximetry 99 100 Oxygen Delivery 10/18/24 22:48 10/18/24 22:51 10/18/24 22:52 Temperature Pulse Rate 88 90 90 Respiratory Rate 22 H 21 H 20 Blood Pressure 191/85 H Pulse Oximetry 100 100 Oxygen Delivery 10/18/24 23:00 10/18/24 23:03 10/18/24 23:30 Temperature Pulse Rate 90 90 84 Respiratory Rate 19 21 H Blood Pressure 195/105 H 215/129 H Pulse Oximetry 98 94 Oxygen Delivery 10/18/24 23:31 10/18/24 23:45 10/19/24 00:00 Temperature 37.0 C Pulse Rate 84 87 83 Respiratory Rate 20 Blood Pressure 197/117 H 209/120 H 211/127 H Pulse Oximetry 99 Oxygen Delivery 10/19/24 00:00 10/19/24 00:00 10/19/24 00:00 Temperature 37.0 C Pulse Rate 88 83 Respiratory Rate 18 Blood Pressure 179/109 H Pulse Oximetry 98 Oxygen Delivery Room Air 10/19/24 00:20 10/19/24 00:40 10/19/24 01:10 Temperature Pulse Rate 82 83 84 Respiratory Rate Blood Pressure 222/138 H 216/154 H 196/122 H Pulse Oximetry Oxygen Delivery 10/19/24 01:35 10/19/24 02:00 10/19/24 02:00 Temperature 37.1 C Pulse Rate 83 77 78 Respiratory Rate 20 Blood Pressure 162/132 H 185/113 H 185/113 H Pulse Oximetry 97 Oxygen Delivery 10/19/24 02:00 10/19/24 02:15 10/19/24 02:30 Temperature Pulse Rate 77 78 78 Respiratory Rate Blood Pressure 195/110 H 194/110 H Pulse Oximetry Oxygen Delivery 10/19/24 03:00 10/19/24 03:15 10/19/24 03:38 Temperature Pulse Rate 79 80 79 Respiratory Rate Blood Pressure 194/108 H 183/112 H 216/114 H Pulse Oximetry Oxygen Delivery 10/19/24 03:50 10/19/24 03:55 10/19/24 04:00 Temperature Pulse Rate 78 79 78 Respiratory Rate Blood Pressure 207/118 H 189/111 H 172/116 H Pulse Oximetry Oxygen Delivery 10/19/24 04:00 10/19/24 04:00 10/19/24 04:10 Temperature Pulse Rate 78 79 Respiratory Rate Blood Pressure 197/120 H Pulse Oximetry Oxygen Delivery Room Air 10/19/24 04:21 10/19/24 05:00 10/19/24 05:10 Temperature 36.6 C Pulse Rate 79 80 80 Respiratory Rate 18 Blood Pressure 194/122 H 202/116 H 181/124 H Pulse Oximetry 99 Oxygen Delivery 10/19/24 05:30 10/19/24 06:00 10/19/24 06:00 Temperature Pulse Rate 82 82 81 Respiratory Rate 20 Blood Pressure 187/108 H 186/108 H 207/115 H Pulse Oximetry 99 Oxygen Delivery 10/19/24 06:00 10/19/24 06:30 10/19/24 06:45 Temperature Pulse Rate 82 82 95 Respiratory Rate Blood Pressure 212/124 H 217/141 H Pulse Oximetry Oxygen Delivery 10/19/24 07:05 10/19/24 07:15 10/19/24 07:30 Temperature Pulse Rate 77 78 76 Respiratory Rate Blood Pressure 194/129 H 201/124 H 209/121 H Pulse Oximetry Oxygen Delivery 10/19/24 07:35 10/19/24 07:45 10/19/24 08:00 Temperature 36.2 C L Pulse Rate 78 78 78 Respiratory Rate 15 Blood Pressure 191/115 H 191/116 H 187/111 H Pulse Oximetry 98 Oxygen Delivery 10/19/24 08:18 10/19/24 08:30 10/19/24 08:57 Temperature Pulse Rate 78 80 80 Respiratory Rate Blood Pressure 182/109 H 201/111 H Pulse Oximetry Oxygen Delivery 10/19/24 09:03 10/19/24 09:24 10/19/24 09:41 Temperature Pulse Rate 81 80 81 Respiratory Rate Blood Pressure 206/140 H 210/136 H Pulse Oximetry Oxygen Delivery 10/19/24 09:54 10/19/24 10:00 Temperature Pulse Rate 67 69 Respiratory Rate 20 Blood Pressure 147/76 H 150/85 H Pulse Oximetry 100 Oxygen Delivery Exam 2 Narrative: General: Pt is drowsy, sleeping and in NAD Lungs/Chest: Trachea central Clear BS B/L, No crackles or wheezing. Cardiac: RRR. Normal S1 S2. No murmurs Circulation: Pedal pulses are intact and symmetrical. Abdomen: Normal bowel sounds.. Soft. NT. ND. Extremities: No clubbing, cyanosis or edema. Warm : Daniel in place Neurologic: Drowsy, falls asleep easily, wakes up on stimulation, follows commands with all 4 extremities PERRL Skin: No Rash Results Labs 10/19/24 08:21 10/19/24 03:30 Labs: Impressions Forearm X-Ray 10/18/24 16:37 IMPRESSION: No acute fracture or dislocation Chest X-Ray 10/18/24 21:11 IMPRESSION: 1. No acute cardiopulmonary disease. Head CT 10/19/24 05:45 Impression: No significant abnormality seen. Short CBC 10/18/24 10/19/24 10/19/24 Range/Units 17:04 03:30 08:21 WBC 13.4 H 10.6 H 13.3 H (4.5-10.0) K/mm3 Hgb 15.8 H 11.8 L D 11.7 L (12.0-15.0) g/dL Hct 44.7 33.7 L 33.5 L (37.0-47.0) % Plt Count 228 166 170 (150-375) k/mm3 BMP 10/18/24 10/19/24 17:04 03:30 Sodium 132 L 134 L Potassium 2.9 L 3.1 L Chloride 90 L 100 Carbon Dioxide 30 27 BUN 23 H D 20 H Creatinine 1.04 H 0.86 Glucose 124 H 99 Calcium 9.6 7.7 L Cardiac Enzymes 10/18/24 10/19/24 10/19/24 Range/Units 17:04 00:15 03:30 Troponin I 0.080 H* 0.090 H* 0.087 H* (0.000-0.034) ng/mL Liver Function 10/18/24 10/19/24 Range/Units 17:04 03:30 Total Bilirubin 1.1 0.8 (0.2-1.3) mg/dL AST 31 24 (14-36) U/L ALT 19 14 (6-35) U/L Alkaline Phosphatase 95 78 (38-126) U/L Albumin 4.7 3.2 L (3.5-5.1) g/dL Urine 10/19/24 Range/Units 01:36 Urine Color Yellow (Yellow) Urine Appearance Turbid H (Clear) Urine pH 5.5 (5.0-9.0) Ur Specific [place] 1.011 (1.001-1.035) Urine Protein 2+ H (Negative) mg/dL Urine Glucose (UA) Negative (Negative) mg/dL
--- NOTE | 2024-10-19 11:00 | P.CONCA_ITS ---
Assessment and Plan Assessment and plan (1) Hypertensive emergency: Code(s): I16.1 - Hypertensive emergency Status: Acute Plan 1. Hypertensive emergency 2. Elevated troponin. 3. Substance abuse. UDS positive for methamphetamine. 4. Alcohol abuse. Reportedly stopped drinking 11 days ago. 5. Tobacco dependence PLAN: -Blood pressures are now improved. Continue with Lisinopril, Coreg. Nitroglycerin drip has been weaned off now. Will adjust PO antihypertensive regimen accordingly. -Echocardiogram ordered and pending. -Troponin elevation is flat. EKG with LVH with secondary STTW abnormalities. Doubt ACS. Will stop Heparin drip. Recommendations and plan discussed with ICU Physician. History of Present Illness History of Present Illness Consult date/time: 10/19/24 11:00 Requesting physician: Maria Del Carmen Fabian PA-C Consult reason: Other (NSTEMI/Hypertensive Emergency) Reason For Visit: Hypertensive Emergency/NSTEMI Narrative: Elham Bennett is a 48 year old female with hypertension, depression, substance abuse, COPD, smoking who presented to ER with nausea, vomiting, weakness. Reported she quit drinking 11 days ago. Noted to be in hypertensive emergency with blood pressure as high as 235/141mmHg. Patient given IV Hydralazine, IV Labetolol and started on NTG drip for hypertensive emergency. Started on Heparin drip due to elevated troponin. Patient received Ativan this morning and is quite sleepy, therefore, unable to obtain any history from the patient. History obtained from the medical chart and medical team. Workup showed: Head CT engative. Troponin of 0.080, 0.090, 0.087. BNP 30,000. UDS positive for methamphetamine. EKG with sinus rhythm with LVH with secondary repolarization changes. Review of Systems 2 Review of Systems: ROS unobtainable: Yes unobtainable due to mental status PMFSH Past Medical History Medical History Depression (11/08/15) Cellulitis of foot Nicotine dependence, cigarettes, with unspecified nicotine-induced disorders JANAE (generalized anxiety disorder) Hypertension Surgical History Surgical History History of endometrial ablation History of tonsillectomy and adenoidectomy Family History Family History Mother JANAE (generalized anxiety disorder) COPD (chronic obstructive pulmonary disease) Hypertension Father Hypertension Lung cancer Bone cancer Brain tumor Social History Social History Smoking packs per day: 1 Smoking cigarettes per day: 20.0 Years smoked: 26 Smoking pack-years: 26.00 Smoking status: Current every day smoker Tobacco type: cigarettes Second hand tobacco smoke exposure: Yes Additional smoking assessment comments: She has smoked 1 pack of cigarettes per day since age 18. Alcohol intake: current Drinks per week: 1 Substance use: former Substance use type: marijuana, crack/cocaine and methamphetamine Last use: 10/08/2024 Do You Feel Safe in your Home?: Yes Lack of Transportation: YES Lack of Food: Often True Current Housing: I Have Housing Concerned About Future Housing: No Difficulty Paying Gas/Electric Bills: YES Difficulty Paying for Meds: No Currently Unemployed: YES Education: Trade/Vocational Certificate Difficulty w/ Childcare or Family Care: No Living arrangements: alone Additional living arrangements comments: She is been since 2019. She has 2 children. Her daughter moved out when her and her daughter now lives with her grandparents. 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 Her parents are planning to moved to assisted living March 2022. Occupation/Education: unemployed Gender identity (if verbalized by the patient): Female Spiritual care concerns: No Meds Home Medications and Allergies Home Medications ?Medication ?Instructions ?Recorded ?Confirmed ?Type albuterol sulfate 90 mcg/actuation 90 mcg inhalation Q4-6H PRN 02/14/22 10/18/24 History aerosol inhaler Shortness Of Breath Or Wheezing lisinopril 40 mg tablet 40 mg PO DAILY 02/14/22 10/18/24 History ondansetron HCl 4 mg tablet 4 mg PO Q8H PRN nausea and 12/27/22 10/18/24 Rx vomiting 4 days #10 tabs azithromycin 250 mg tablet 250 mg PO DAILY 10 days #10 tabs 12/28/22 10/18/24 Rx (Zithromax Z-Tristian) capsaicin 0.075 % topical cream 1 applic topical TID 1 week #57 12/28/22 10/18/24 Rx grams lorazepam 1 mg tablet (Ativan) 1 mg PO BID PRN nausea and 12/28/22 10/18/24 Rx vomiting #20 tabs metoclopramide HCl 5 mg tablet 5 mg PO DAILY 2 weeks #14 tabs 12/28/22 10/18/24 Rx (Reglan) Allergies Allergy/AdvReac Type Severity Reaction Status Date / Time penicillin G Allergy Severe mouth and Verified 10/18/24 23:35 throat swell latex Allergy Intermediate Unknown Verified 10/18/24 23:35 levofloxacin (Levaquin) Allergy Intermediate Itching Verified 10/18/24 23:35 Iodinated Contrast Media Allergy Mild sneezing, Verified 10/18/24 23:35 stuffy head mupirocin Allergy Rash Verified 10/18/24 23:35 Sulfa (Sulfonamide AdvReac Mild Nausea and Verified 10/18/24 23:35 Antibiotics) Vomiting Vital Signs Vital Signs - 24 hr 10/18/24 16:14 10/18/24 19:21 10/18/24 19:22 Temperature 36.8 C Pulse Rate 100 Respiratory Rate 20 Blood Pressure 193/120 H 221/122 H Pulse Oximetry 97 85 L 100 Oxygen Delivery Room Air 10/18/24 19:25 10/18/24 19:32 10/18/24 19:33 Temperature Pulse Rate Respiratory Rate Blood Pressure 224/132 H 201/170 H Pulse Oximetry 99 Oxygen Delivery 10/18/24 19:41 10/18/24 19:45 10/18/24 19:47 Temperature Pulse Rate 100 Respiratory Rate Blood Pressure 221/138 H Pulse Oximetry 100 Oxygen Delivery 10/18/24 20:00 10/18/24 20:01 10/18/24 20:31 Temperature Pulse Rate Respiratory Rate Blood Pressure 235/141 H 213/130 H Pulse Oximetry 100 100 100 Oxygen Delivery 10/18/24 20:32 10/18/24 20:45 10/18/24 21:00 Temperature Pulse Rate 89 90 Respiratory Rate 19 21 H Blood Pressure Pulse Oximetry 100 84 L Oxygen Delivery 10/18/24 21:01 10/18/24 21:15 10/18/24 21:18 Temperature Pulse Rate 83 100 100 Respiratory Rate 18 21 H 12 Blood Pressure 234/146 H 225/118 H Pulse Oximetry 75 L Oxygen Delivery 10/18/24 21:30 10/18/24 21:56 10/18/24 22:00 Temperature Pulse Rate 103 H 93 82 Respiratory Rate 21 H 20 20 Blood Pressure Pulse Oximetry Oxygen Delivery 10/18/24 22:01 10/18/24 22:02 10/18/24 22:04 Temperature Pulse Rate 81 81 81 Respiratory Rate 12 25 H 13 Blood Pressure 212/133 H 222/132 H Pulse Oximetry 94 Oxygen Delivery 10/18/24 22:05 10/18/24 22:18 10/18/24 22:22 Temperature Pulse Rate 82 81 84 Respiratory Rate 22 H 21 H 15 Blood Pressure 170/148 H Pulse Oximetry 90 Oxygen Delivery 10/18/24 22:26 10/18/24 22:34 10/18/24 22:36 Temperature Pulse Rate 85 85 84 Respiratory Rate 18 18 18 Blood Pressure 193/142 H 163/112 H Pulse Oximetry 94 Oxygen Delivery 10/18/24 22:41 10/18/24 22:42 10/18/24 22:48 Temperature Pulse Rate 83 84 90 Respiratory Rate 21 H 18 Blood Pressure 186/107 H 186/107 H 208/107 H Pulse Oximetry 99 100 Oxygen Delivery 10/18/24 22:48 10/18/24 22:51 10/18/24 22:52 Temperature Pulse Rate 88 90 90 Respiratory Rate 22 H 21 H 20 Blood Pressure 191/85 H Pulse Oximetry 100 100 Oxygen Delivery 10/18/24 23:00 10/18/24 23:03 10/18/24 23:30 Temperature Pulse Rate 90 90 84 Respiratory Rate 19 21 H Blood Pressure 195/105 H 215/129 H Pulse Oximetry 98 94 Oxygen Delivery 10/18/24 23:31 10/18/24 23:45 10/19/24 00:00 Temperature 37.0 C Pulse Rate 84 87 83 Respiratory Rate 20 Blood Pressure 197/117 H 209/120 H 211/127 H Pulse Oximetry 99 Oxygen Delivery 10/19/24 00:00 10/19/24 00:00 10/19/24 00:00 Temperature 37.0 C Pulse Rate 88 83 Respiratory Rate 18 Blood Pressure 179/109 H Pulse Oximetry 98 Oxygen Delivery Room Air 10/19/24 00:20 10/19/24 00:40 10/19/24 01:10 Temperature Pulse Rate 82 83 84 Respiratory Rate Blood Pressure 222/138 H 216/154 H 196/122 H Pulse Oximetry Oxygen Delivery 10/19/24 01:35 10/19/24 02:00 10/19/24 02:00 Temperature 37.1 C Pulse Rate 83 77 78 Respiratory Rate 20 Blood Pressure 162/132 H 185/113 H 185/113 H Pulse Oximetry 97 Oxygen Delivery 10/19/24 02:00 10/19/24 02:15 10/19/24 02:30 Temperature Pulse Rate 77 78 78 Respiratory Rate Blood Pressure 195/110 H 194/110 H Pulse Oximetry Oxygen Delivery 10/19/24 03:00 10/19/24 03:15 10/19/24 03:38 Temperature Pulse Rate 79 80 79 Respiratory Rate Blood Pressure 194/108 H 183/112 H 216/114 H Pulse Oximetry Oxygen Delivery 10/19/24 03:50 10/19/24 03:55 10/19/24 04:00 Temperature Pulse Rate 78 79 78 Respiratory Rate Blood Pressure 207/118 H 189/111 H 172/116 H Pulse Oximetry Oxygen Delivery 10/19/24 04:00 10/19/24 04:00 10/19/24 04:10 Temperature Pulse Rate 78 79 Respiratory Rate Blood Pressure 197/120 H Pulse Oximetry Oxygen Delivery Room Air 10/19/24 04:21 10/19/24 05:00 10/19/24 05:10 Temperature 36.6 C Pulse Rate 79 80 80 Respiratory Rate 18 Blood Pressure 194/122 H 202/116 H 181/124 H Pulse Oximetry 99 Oxygen Delivery 10/19/24 05:30 10/19/24 06:00 10/19/24 06:00 Temperature Pulse Rate 82 82 81 Respiratory Rate 20 Blood Pressure 187/108 H 186/108 H 207/115 H Pulse Oximetry 99 Oxygen Delivery 10/19/24 06:00 10/19/24 06:30 10/19/24 06:45 Temperature Pulse Rate 82 82 95 Respiratory Rate Blood Pressure 212/124 H 217/141 H Pulse Oximetry Oxygen Delivery 10/19/24 07:05 10/19/24 07:15 10/19/24 07:30 Temperature Pulse Rate 77 78 76 Respiratory Rate Blood Pressure 194/129 H 201/124 H 209/121 H Pulse Oximetry Oxygen Delivery 10/19/24 07:35 10/19/24 07:45 10/19/24 08:00 Temperature 36.2 C L Pulse Rate 78 78 78 Respiratory Rate 15 Blood Pressure 191/115 H 191/116 H 187/111 H Pulse Oximetry 98 Oxygen Delivery 10/19/24 08:18 10/19/24 08:30 10/19/24 08:57 Temperature Pulse Rate 78 80 80 Respiratory Rate Blood Pressure 182/109 H 201/111 H Pulse Oximetry Oxygen Delivery 10/19/24 09:03 10/19/24 09:24 10/19/24 09:41 Temperature Pulse Rate 81 80 81 Respiratory Rate Blood Pressure 206/140 H 210/136 H Pulse Oximetry Oxygen Delivery 10/19/24 09:54 10/19/24 10:00 Temperature Pulse Rate 67 69 Respiratory Rate 20 Blood Pressure 147/76 H 150/85 H Pulse Oximetry 100 Oxygen Delivery Exam 2 Const: General: no acute distress Resp: Effort & Inspection: normal respiratory effort Auscultation: clear to auscultation bilaterally Cardio: Rate: regular rate Rhythm: regular rhythm Heart sounds: no murmurs Neuro: Other: Sedated Results Labs and Meds 10/19/24 08:21 10/19/24 03:30 Lab results: Cardiac Enzymes 10/18/24 10/19/24 10/19/24 Range/Units 17:04 00:15 03:30 AST 31 24 (14-36) U/L Troponin I 0.080 H* 0.090 H* 0.087 H* (0.000-0.034) ng/mL Coagulation 10/18/24 Range/Units 17:04 PT 13.2 (11.1-14.7) Seconds APTT 26.1 (22.3-36.8) Seconds CBC 10/18/24 10/19/24 10/19/24 Range/Units 17:04 03:30 08:21 WBC 13.4 H 10.6 H 13.3 H (4.5-10.0) K/mm3 RBC 5.18 3.80 L 3.78 L (4.2-5.4) M/mm3 Hgb 15.8 H 11.8 L D 11.7 L (12.0-15.0) g/dL Hct 44.7 33.7 L 33.5 L (37.0-47.0) % Plt Count 228 166 170 (150-375) k/mm3 Lymph # (Auto) 1.53 1.61 (0.9-3.2) K/mm3 Josephine # (Auto) 1.3 H 0.9 H (0.1-0.6) K/mm3 Eos # (Auto) 0.1 0.1 (0-0.3) K/mm3 Baso # (Auto) 0.1 0.0 (0.0-0.1) K/mm3 Comprehensive Metabolic Panel 10/18/24 10/19/24 Range/Units 17:04 03:30 Sodium 132 L 134 L (137-145) mmol/L Potassium 2.9 L 3.1 L (3.4-5.0) mmol/L Chloride 90 L 100 (98-107) mmol/L Carbon Dioxide 30 27 (22-30) mmol/L BUN 23 H D 20 H (7-17) mg/dL Creatinine 1.04 H 0.86 (0.7-1.0) mg/dL Glucose 124 H 99 (65-110) mg/dL Calcium 9.6 7.7 L (8.4-10.2) mg/dL AST 31 24 (14-36) U/L ALT 19 14 (6-35) U/L Alkaline Phosphatase 95 78 (38-126) U/L Total Protein 8.0 6.0 L (6.3-8.2) g/dL Albumin 4.7 3.2 L (3.5-5.1) g/dL Intake and Output 10/18/24 10/19/24 10/19/24 23:59 07:59 15:59 Intake Total 2204.9 131.0 240.2 Output Total 100 Balance 2204.9 31.0 240.2 Intake: IV 2204.9 131.0 240.2 Heparin Sod/D5w 100 Units/ml 25 2.9 0 ,000 units In 250 ml @ 0 UNITS/ HR IV CONT .Q0M [facility] Rx#: [id number] Nitroglycerin/D5w 200 Mcg/ml 50 2.0 131.0 87.2 mg In 250 ml @ 5 MCG/MIN 1.5 mls/hr IV CONT .Q24H [facility] Rx#: [id number] Sodium Chloride 0.9% IV 1,000 2000 ml @ 999 mls/hr IV CONT .Q1H1M [facility] Rx#:[id number] KCl 20 Meq/Sw 100 ml 100 ml @ 100 50 mls/hr IVPB ONCE STA Rx#: [id number] Magnesium Sulf 1 gm/D5w 100 ml 100 1 gm In 100 ml @ 100 mls/hr IVPB ONCE ONE Rx#:[id number] Thiamine HCl Inj 300 mg In 103 Sodium Chloride 0.9% IV 100 ml @ 206 mls/hr IVPB DAILY [facility] Rx# :[id number] cefTRIAXone 1 GM/NS 50 ML 1 gm 50 In 50 ml @ 100 mls/hr IVPB DAILY [facility] Rx#:[id number] Output: Urine 100 Patient Weight 10/19/24 23:59 Weight 58.2 kg
[2024-10-19 11:32] LABS: Glucose Point of Care 121 mg/dl (65-105)
[2024-10-19 15:23] LABS: Hematocrit 35.8 % (37.0-47.0); Hemoglobin 12.1 g/dL (12.0-15.0); Mean Corpuscular HGB Conc 33.8 g/dl (32-36); Mean Corpuscular Hemoglobin 31.2 pg (26-34); Mean Corpuscular Volume 92.3 fl (80-100); Mean Platelet Volume 12.1 fl (7.4-10.4); Platelet Count Result 170 k/mm3 (150-375); Red Blood Count 3.88 M/mm3 (4.2-5.4); Red Cell Distribution Width 12.7 % (11.5-14.5); White Blood Count 13.3 K/mm3 (4.5-10.0)
[2024-10-19 15:33] LABS: Anion Gap 6 mmol/L (4-12); Blood Urea Nitrogen 18 mg/dL (7-17); Calcium 8.1 mg/dL (8.4-10.2); Carbon Dioxide 27 mmol/L (22-30); Chloride 103 mmol/L (98-107); Estimated CRCL calculation 60 ml/min; Estimated Glomerular Filt Rate > 60; Glucose 102 mg/dL (65-110); Potassium 4.2 mmol/L (3.4-5.0); Sodium 136 mmol/L (137-145)
--- NOTE | 2024-10-19 15:53 | P.PNIM_ITS ---
Progress Note: A&P Assessment and Plan (1) Substance abuse: Code(s): F19.10 - Other psychoactive substance abuse, uncomplicated Status: Acute Assessment and Plan: Patient has history of alcohol, tobacco and drug abuse UDS positive methamphetamine Received Ativan Monitor (2) Uncontrolled hypertension: Code(s): I10 - Essential (primary) hypertension Status: Acute Assessment and Plan: Patient was started on nitroglycerin infusion on presentation Patient received Coreg and lisinopril this morning Wean off nitroglycerin infusion P.r.n. labetalol and hydralazine to keep systolic below 180 (3) NSTEMI (non-ST elevated myocardial infarction): Code(s): I21.4 - Non-ST elevation (NSTEMI) myocardial infarction Status: Acute Assessment and Plan: Aspirin and heparin infusion Coreg and lisinopril Check echo Serial troponin Cardiology consult EKG reviewed (4) Acute hypokalemia: Code(s): E87.6 - Hypokalemia Status: Acute Assessment and Plan: Potassium replacement ordered. Repeat BMP ordered (5) Alcohol abuse: Code(s): F10.10 - Alcohol abuse, uncomplicated Status: Acute Assessment and Plan: Patient has history of alcohol abuse. Last reported drink was 11 days ago as per patient's report in the ER. Patient received Librium and Ativan. Not sure patient actually was withdrawing or over the symptoms were secondary to meth and headache secondary to nitroglycerin infusion Patient to drowsy now. Will hold Librium and Ativan at this time and re- evaluate once patient is more awake and alert Thiamine and folic acid Subjective Date/time seen: 10/19/24 15:53 Interval history: Patient reports of abdominal pain . Order KUB and given Bentyl 10 mg. Review of Systems Review of Systems: All systems reviewed & are unremarkable except as noted in HPI and below ROS unobtainable: Yes unobtainable due to medical condition and unobtainable due to mental status Exam Narrative: General: Pt is drowsy, sleeping and in NAD Lungs/Chest: Trachea central Clear BS B/L, No crackles or wheezing. Cardiac: RRR. Normal S1 S2. No murmurs Circulation: Pedal pulses are intact and symmetrical. Abdomen: Normal bowel sounds.. Soft. NT. ND. Extremities: No clubbing, cyanosis or edema. Warm : Daniel in place Neurologic: Drowsy, falls asleep easily, wakes up on stimulation, follows commands with all 4 extremities PERRL Skin: No Rash Objective Data Vital Signs Vital Signs: Vital Signs - 24 hr 10/18/24 16:14 10/18/24 19:21 10/18/24 19:22 Temperature 98.3 F Pulse Rate 100 Respiratory Rate 20 Blood Pressure 193/120 H 221/122 H Pulse Oximetry 97 85 L 100 Oxygen Delivery Room Air 10/18/24 19:25 10/18/24 19:32 10/18/24 19:33 Temperature Pulse Rate Respiratory Rate Blood Pressure 224/132 H 201/170 H Pulse Oximetry 99 Oxygen Delivery 10/18/24 19:41 10/18/24 19:45 10/18/24 19:47 Temperature Pulse Rate 100 Respiratory Rate Blood Pressure 221/138 H Pulse Oximetry 100 Oxygen Delivery 10/18/24 20:00 10/18/24 20:01 10/18/24 20:31 Temperature Pulse Rate Respiratory Rate Blood Pressure 235/141 H 213/130 H Pulse Oximetry 100 100 100 Oxygen Delivery 10/18/24 20:32 10/18/24 20:45 10/18/24 21:00 Temperature Pulse Rate 89 90 Respiratory Rate 19 21 H Blood Pressure Pulse Oximetry 100 84 L Oxygen Delivery 10/18/24 21:01 10/18/24 21:15 10/18/24 21:18 Temperature Pulse Rate 83 100 100 Respiratory Rate 18 21 H 12 Blood Pressure 234/146 H 225/118 H Pulse Oximetry 75 L Oxygen Delivery 10/18/24 21:30 10/18/24 21:56 10/18/24 22:00 Temperature Pulse Rate 103 H 93 82 Respiratory Rate 21 H 20 20 Blood Pressure Pulse Oximetry Oxygen Delivery 10/18/24 22:01 10/18/24 22:02 10/18/24 22:04 Temperature Pulse Rate 81 81 81 Respiratory Rate 12 25 H 13 Blood Pressure 212/133 H 222/132 H Pulse Oximetry 94 Oxygen Delivery 10/18/24 22:05 10/18/24 22:18 10/18/24 22:22 Temperature Pulse Rate 82 81 84 Respiratory Rate 22 H 21 H 15 Blood Pressure 170/148 H Pulse Oximetry 90 Oxygen Delivery 10/18/24 22:26 10/18/24 22:34 10/18/24 22:36 Temperature Pulse Rate 85 85 84 Respiratory Rate 18 18 18 Blood Pressure 193/142 H 163/112 H Pulse Oximetry 94 Oxygen Delivery 10/18/24 22:41 10/18/24 22:42 10/18/24 22:48 Temperature Pulse Rate 83 84 90 Respiratory Rate 21 H 18 Blood Pressure 186/107 H 186/107 H 208/107 H Pulse Oximetry 99 100 Oxygen Delivery 10/18/24 22:48 10/18/24 22:51 10/18/24 22:52 Temperature Pulse Rate 88 90 90 Respiratory Rate 22 H 21 H 20 Blood Pressure 191/85 H Pulse Oximetry 100 100 Oxygen Delivery 10/18/24 23:00 10/18/24 23:03 10/18/24 23:30 Temperature Pulse Rate 90 90 84 Respiratory Rate 19 21 H Blood Pressure 195/105 H 215/129 H Pulse Oximetry 98 94 Oxygen Delivery 10/18/24 23:31 10/18/24 23:45 10/19/24 00:00 Temperature 98.6 F Pulse Rate 84 87 83 Respiratory Rate 20 Blood Pressure 197/117 H 209/120 H 211/127 H Pulse Oximetry 99 Oxygen Delivery 10/19/24 00:00 10/19/24 00:00 10/19/24 00:00 Temperature 98.6 F Pulse Rate 88 83 Respiratory Rate 18 Blood Pressure 179/109 H Pulse Oximetry 98 Oxygen Delivery Room Air 10/19/24 00:20 10/19/24 00:40 10/19/24 01:10 Temperature Pulse Rate 82 83 84 Respiratory Rate Blood Pressure 222/138 H 216/154 H 196/122 H Pulse Oximetry Oxygen Delivery 10/19/24 01:35 10/19/24 02:00 10/19/24 02:00 Temperature 98.8 F Pulse Rate 83 77 78 Respiratory Rate 20 Blood Pressure 162/132 H 185/113 H 185/113 H Pulse Oximetry 97 Oxygen Delivery 10/19/24 02:00 10/19/24 02:15 10/19/24 02:30 Temperature Pulse Rate 77 78 78 Respiratory Rate Blood Pressure 195/110 H 194/110 H Pulse Oximetry Oxygen Delivery 10/19/24 03:00 10/19/24 03:15 10/19/24 03:38 Temperature Pulse Rate 79 80 79 Respiratory Rate Blood Pressure 194/108 H 183/112 H 216/114 H Pulse Oximetry Oxygen Delivery 10/19/24 03:50 10/19/24 03:55 10/19/24 04:00 Temperature Pulse Rate 78 79 78 Respiratory Rate Blood Pressure 207/118 H 189/111 H 172/116 H Pulse Oximetry Oxygen Delivery 10/19/24 04:00 10/19/24 04:00 10/19/24 04:10 Temperature Pulse Rate 78 79 Respiratory Rate Blood Pressure 197/120 H Pulse Oximetry Oxygen Delivery Room Air 10/19/24 04:21 10/19/24 05:00 10/19/24 05:10 Temperature 97.8 F Pulse Rate 79 80 80 Respiratory Rate 18 Blood Pressure 194/122 H 202/116 H 181/124 H Pulse Oximetry 99 Oxygen Delivery 10/19/24 05:30 10/19/24 06:00 10/19/24 06:00 Temperature Pulse Rate 82 82 81 Respiratory Rate 20 Blood Pressure 187/108 H 186/108 H 207/115 H Pulse Oximetry 99 Oxygen Delivery 10/19/24 06:00 10/19/24 06:30 10/19/24 06:45 Temperature Pulse Rate 82 82 95 Respiratory Rate Blood Pressure 212/124 H 217/141 H Pulse Oximetry Oxygen Delivery 10/19/24 07:05 10/19/24 07:15 10/19/24 07:30 Temperature Pulse Rate 77 78 76 Respiratory Rate Blood Pressure 194/129 H 201/124 H 209/121 H Pulse Oximetry Oxygen Delivery 10/19/24 07:35 10/19/24 07:45 10/19/24 08:00 Temperature Pulse Rate 78 78 78 Respiratory Rate Blood Pressure 191/115 H 191/116 H Pulse Oximetry Oxygen Delivery 10/19/24 08:00 10/19/24 08:18 10/19/24 08:30 Temperature 97.2 F L Pulse Rate 78 78 80 Respiratory Rate 15 Blood Pressure 187/111 H 182/109 H 201/111 H Pulse Oximetry 98 Oxygen Delivery 10/19/24 08:57 10/19/24 09:03 10/19/24 09:24 Temperature Pulse Rate 80 81 80 Respiratory Rate Blood Pressure 206/140 H 210/136 H Pulse Oximetry Oxygen Delivery 10/19/24 09:41 10/19/24 09:54 10/19/24 10:00 Temperature Pulse Rate 81 67 65 Respiratory Rate Blood Pressure 147/76 H Pulse Oximetry Oxygen Delivery 10/19/24 10:00 10/19/24 12:00 10/19/24 12:00 Temperature 98.6 F Pulse Rate 69 74 74 Respiratory Rate 20 17 Blood Pressure 150/85 H 163/106 H Pulse Oximetry 100 99 Oxygen Delivery 10/19/24 14:00 10/19/24 14:00 Temperature Pulse Rate 71 71 Respiratory Rate 20 Blood Pressure 149/92 H Pulse Oximetry 100 Oxygen Delivery Intake/Output Intake/Output: Intake & Output 10/17/24 10/17/24 10/18/24 10/19/24 00:59 23:59 23:59 23:59 Intake Total 2204.9 611.2 Output Total 875 Balance 2204.9 -263.8 Meds/Results Medications: Active Medications Generic Name Dose Route Start Last Admin Trade Name Freq PRN Reason Stop Dose Admin Acetaminophen 650 mg 10/19/24 00:31 Acetaminophen 325 Mg Tablet PO Q4H PRN Mild Pain (1-3) or Fever Aspirin 81 mg 10/19/24 09:00 10/19/24 08:57 Aspirin 81 Mg Enteric Tablet PO 81 mg QAM NIXON Administration Carvedilol 6.25 mg 10/19/24 09:00 10/19/24 08:57 Carvedilol 6.25 Mg Tablet PO 6.25 mg Q12HR NIXON Administration Folic Acid 1 mg 10/19/24 09:00 10/19/24 09:55 Folic Acid 1 Mg/0.2 Ml Inj IV PUSH 1 mg QAM NIXON Administration Hydralazine HCl 20 mg 10/19/24 08:20 Hydralazine Hcl 20 Mg/Ml Vial IV PUSH Q4H PRN SBP more than 180 Thiamine HCl 300 mg/ Sodium 103 mls @ 206 mls/hr 10/19/24 09:00 10/19/24 10:24 Chloride IVPB Infused DAILY NIXON Infusion Ceftriaxone Sodium 1 gm in 50 mls @ 100 mls/hr 10/19/24 08:30 10/19/24 10:33 Rocephin 1 Gm/Ns 50 Ml IVPB Infused DAILY NIXON Infusion Labetalol HCl 10 mg 10/19/24 14:15 Labetalol Hcl Inj 100 Mg/20 Ml Vial IV PUSH Q4H PRN SBP > 180 -1st choce Lisinopril 40 mg 10/19/24 09:00 10/19/24 08:56 Lisinopril 20 Mg Tablet PO 40 mg QAM NIXON Administration Ondansetron HCl 4 mg 10/18/24 21:09 Ondansetron Inj 4 Mg/2 Ml Vial IV PUSH Q4H PRN Nausea Perflutren Lipid Microsphere 0 ml 10/19/24 08:20 Perflutren Lipid Microspheres 1.5 Ml Vial Diluted To 10 Ml Total Volume IV PUSH 10/22/24 08:20 ONCE PRN adequate visualization Protocol Radiology Results: ITS Impressions Forearm X-Ray 10/18/24 16:37 IMPRESSION: No acute fracture or dislocation Chest X-Ray 10/18/24 21:11 IMPRESSION: 1. No acute cardiopulmonary disease. Head CT 10/19/24 05:45 Impression: No significant abnormality seen. Labs Labs: Laboratory Results - last 24 hr 10/18/24 10/19/24 10/19/24 17:04 00:11 00:15 WBC 13.4 H RBC 5.18 Hgb 15.8 H Hct 44.7 MCV 86.3 MCH 30.5 MCHC 35.3 RDW 12.3 Plt Count 228 MPV 12.3 H Immature Gran % (Auto) 0.3 Neut % (Auto) 77.9 H Lymph % (Auto) 11.4 L [place] % (Auto) 9.4 H Eos % (Auto) 0.6 Baso % (Auto) 0.4 Lymph # (Auto) 1.53 [place] # (Auto) 1.3 H Eos # (Auto) 0.1 Baso # (Auto) 0.1 Abs Immat Gran (auto) 0.04 H Absolute Neuts (auto) 10.5 H Absolute Nucleated RBC 0.000 Nucleated RBC % 0.0 PT 13.2 INR 1.0 APTT 26.1 Sodium 132 L Potassium 2.9 L Chloride 90 L Carbon Dioxide 30 Anion Gap 12 BUN 23 H D Creatinine 1.04 H Estim Creat Clear Calc 47 Estimated GFR 57 L Glucose 124 H POC Capillary Glucose Calcium 9.6 Magnesium 1.8 Total Bilirubin 1.1 AST 31 ALT 19 Alkaline Phosphatase 95 Troponin I 0.080 H* 0.090 H* NT-Pro-B Natriuret Pep > 58504 H Total Protein 8.0 Albumin 4.7 Lipase 61 TSH Urine Color Urine Appearance Urine pH Ur Specific [place] Urine Protein Urine Glucose (UA) Urine Ketones Ur Blood (Man) Urine Nitrate Urine Bilirubin Urine Urobilinogen Leukocyte Esterase Rfl Urine RBC Urine WBC Ur Squamous Epith Cells Urine Bacteria Urine Casts Nasal MRSA (PCR) Not detected Urine Opiates Screen Urine Methadone Screen Ur Barbiturates Screen Ur Phencyclidine Scrn Ur Amphetamine Screen U Benzodiazepines Scrn Urine Cocaine Screen U Cannabinoids Screen Influenza A (RT-PCR) Negative Influenza B (RT-PCR) Negative RSV (RT-PCR) Negative SARS-CoV-2 RNA (RT-PCR) Negative 10/19/24 10/19/24 10/19/24 01:36 03:30 08:21 WBC 10.6 H 13.3 H RBC 3.80 L 3.78 L Hgb 11.8 L D 11.7 L Hct 33.7 L 33.5 L MCV 88.7 88.6 MCH 31.1 31.0 MCHC 35.0 34.9 RDW 12.4 12.5 Plt Count 166 170 MPV 10.7 H 12.1 H Immature Gran % (Auto) 0.4 Neut % (Auto) 74.6 H Lymph % (Auto) 15.2 L [place] % (Auto) 8.4 Eos % (Auto) 1.0 Baso % (Auto) 0.4 Lymph # (Auto) 1.61 [place] # (Auto) 0.9 H Eos # (Auto) 0.1 Baso # (Auto) 0.0 Abs Immat Gran (auto) 0.04 H Absolute Neuts (auto) 7.9 H Absolute Nucleated RBC 0.000 Nucleated RBC % 0.0 PT INR APTT Sodium 134 L Potassium 3.1 L Chloride 100 Carbon Dioxide 27 Anion Gap 7 BUN 20 H Creatinine 0.86 Estim Creat Clear Calc 63 Estimated GFR > 60 Glucose 99 POC Capillary Glucose Calcium 7.7 L Magnesium 2.3 Total Bilirubin 0.8 AST 24 ALT 14 Alkaline Phosphatase 78 Troponin I 0.087 H* NT-Pro-B Natriuret Pep Total Protein 6.0 L Albumin 3.2 L Lipase TSH 2.630 Urine Color Yellow Urine Appearance Turbid H Urine pH 5.5 Ur Specific [place] 1.011 Urine Protein 2+ H Urine Glucose (UA) Negative Urine Ketones Negative Ur Blood (Man) 3+ H Urine Nitrate Negative Urine Bilirubin Negative Urine Urobilinogen 1.0 Leukocyte Esterase Rfl 1+ H Urine RBC 6-10 H Urine WBC 21-50 H Ur Squamous Epith Cells Moderate Urine Bacteria 4+ Urine Casts 0-2 Nasal MRSA (PCR) Urine Opiates Screen Negative Urine Methadone Screen Negative Ur Barbiturates Screen Negative Ur Phencyclidine Scrn Negative Ur Amphetamine Screen Positive A U Benzodiazepines Scrn Negative Urine Cocaine Screen Negative U Cannabinoids Screen Negative Influenza A (RT-PCR) Influenza B (RT-PCR) RSV (RT-PCR) SARS-CoV-2 RNA (RT-PCR) 10/19/24 10/19/24 11:23 15:17 WBC 13.3 H RBC 3.88 L Hgb 12.1 Hct 35.8 L MCV 92.3 MCH 31.2 MCHC 33.8 RDW 12.7 Plt Count 170 MPV 12.1 H Immature Gran % (Auto) Neut % (Auto) Lymph % (Auto) [place] % (Auto) Eos % (Auto) Baso % (Auto) Lymph # (Auto) [place] # (Auto) Eos # (Auto) Baso # (Auto) Abs Immat Gran (auto) Absolute Neuts (auto) Absolute Nucleated RBC Nucleated RBC % PT INR APTT Sodium 136 L Potassium 4.2 Chloride 103 Carbon Dioxide 27 Anion Gap 6 BUN 18 H Creatinine 0.90 Estim Creat Clear Calc 60 Estimated GFR > 60 Glucose 102 POC Capillary Glucose 121 H Calcium 8.1 L Magnesium Total Bilirubin AST ALT Alkaline Phosphatase Troponin I NT-Pro-B Natriuret Pep Total Protein Albumin Lipase TSH Urine Color Urine Appearance Urine pH Ur Specific [place] Urine Protein Urine Glucose (UA) Urine Ketones Ur Blood (Man) Urine Nitrate Urine Bilirubin Urine Urobilinogen Leukocyte Esterase Rfl Urine RBC Urine WBC Ur Squamous Epith Cells Urine Bacteria Urine Casts Nasal MRSA (PCR) Urine Opiates Screen Urine Methadone Screen Ur Barbiturates Screen Ur Phencyclidine Scrn Ur Amphetamine Screen U Benzodiazepines Scrn Urine Cocaine Screen U Cannabinoids Screen Influenza A (RT-PCR) Influenza B (RT-PCR) RSV (RT-PCR) SARS-CoV-2 RNA (RT-PCR) Quality VTE Prophylaxis VTE prophylaxis: pharmacologic ordered Hospitalist MIPS Advance Care Plan I have confirmed that the patient's Advanced Care Plan is present, code status is documented, or surrogate decision maker is listed in patient medical record.: Yes Medication Reconciliation I have utilized all available resources to obtain, update and review the patients current medications (includes all prescriptions, OTC, herbals, cannabis, and nutritional supplements).: Yes
--- NOTE | 2024-10-19 17:48 | ADMIMU ---
This patient, Elham Bennett, was admitted to IMU status, and placed in IMU Room 213-01. Patient/family oriented to hospital policies and general routines including ID bracelet, bed and alarms, visiting hours, pain management, procedures, bathroom and other care routines, personal items, smoking policy, room service/diet, and visiting hours. Valuables list has been completed. Pt educated continuous improvement analyst light and need for help when getting up to use bsc. Alarms on, rails up x3 Information on how to activate the Rapid Response Team has been discussed. Patient/Family are encouraged to report perceived risks to care and to ask questions if they do not understand what they are told or what they should do.
--- NOTE | 2024-10-19 17:54 | PC.NURSE ---
This patient, Elham Bennett, was transferred to [ [facility]] on 10/19/24 at 1754. Personal belongings sent with patient. Report given to [chantal ]. Appropriate documentation sent with patient.
[2024-10-19] MEDS: MAG HYDROX/AL HYDROX/SIMETH 30 ML UDC PO (18:14)
[2024-10-19] MEDS: DICYCLOMINE HCL 10 MG CAPSULE 20 MG PO (21:06)
[2024-10-20] VITALS (19 sets, daily range): BP systolic 155–190; BP diastolic 81–98; PULSE 65–99; RESP 18–20; TEMP 36–37.4; O2SAT 95–100
[2024-10-20] MEDS: cloNIDine HCL 0.1 MG TABLET PO ×3 (00:55→20:39)
[2024-10-20 04:32] LABS: Basophils Absolute Auto 0.1 K/mm3 (0.0-0.1); Basophils Percent Auto 0.4 % (0.2-1.2); Eosinophils Absolute Auto 0.1 K/mm3 (0-0.3); Eosinophils Percent Auto 0.7 % (0-4.4); Hematocrit 33.6 % (37.0-47.0); Hemoglobin 11.5 g/dL (12.0-15.0); Immature Granulocyte Absolute 0.06 K/mm3 (0.00-0.031); Immature Granulocyte Percent A 0.4 % (0-0.5); Lymphocytes Absolute Auto 1.36 K/mm3 (0.9-3.2); Lymphocytes Percent Auto 9.8 % (18.3-44.2); Mean Corpuscular HGB Conc 34.2 g/dl (32-36); Mean Corpuscular Hemoglobin 30.6 pg (26-34); Mean Corpuscular Volume 89.4 fl (80-100); Mean Platelet Volume 12.5 fl (7.4-10.4); Monocytes Percent Auto 7.3 % (2.6-8.5); Neutrophils Absolute Auto 11.3 K/mm3 (1.3-6.7); Neutrophils Percent Auto 81.4 % (45.5-73.1); Platelet Count Result 163 k/mm3 (150-375); Red Blood Count 3.76 M/mm3 (4.2-5.4); Red Cell Distribution Width 12.5 % (11.5-14.5); White Blood Count 13.9 K/mm3 (4.5-10.0)
[2024-10-20 04:48] LABS: Alanine Aminotransferase 13 U/L (6-35); Albumin Level 3.4 g/dL (3.5-5.1); Alkaline Phosphatase 85 U/L (38-126); Anion Gap 7 mmol/L (4-12); Aspartate Amino Transferase 23 U/L (14-36); Bilirubin,Total 0.8 mg/dL (0.2-1.3); Blood Urea Nitrogen 14 mg/dL (7-17); Calcium 8.3 mg/dL (8.4-10.2); Carbon Dioxide 24 mmol/L (22-30); Chloride 101 mmol/L (98-107); Estimated CRCL calculation 67 ml/min; Estimated Glomerular Filt Rate > 60; Glucose 110 mg/dL (65-110); Magnesium 2.1 mg/dL (1.6-2.3); Phosphorus 2.9 mg/dL (2.5-4.5); Potassium 3.6 mmol/L (3.4-5.0); Sodium 132 mmol/L (137-145)
[2024-10-20] MEDS: LABETALOL HCL INJ 100 MG/20 ML VIAL 10 MG IV PUSH (06:30)
[2024-10-20] MEDS: carvediloL 6.25 MG TABLET PO (08:51)
[2024-10-20] MEDS: ASPIRIN 81 MG ENTERIC TABLET PO (08:51)
[2024-10-20] MEDS: lisinopriL 20 MG TABLET 40 MG PO (08:51)
[2024-10-20] MEDS: THIAMINE HCL 200 MG/2 ML VIAL 400 MG (08:52)
[2024-10-20] MEDS: polyethylene glycoL 3350 17 GM POWD.PACK PO (09:38)
[2024-10-20] MEDS: FOLIC ACID 1 MG/0.2 ML INJ IV PUSH (09:38)
[2024-10-20] MEDS: THIAMINE HCL INJ 300 MG in SODIUM CHLORIDE 0.9% IV 100 ML 206 MG IVPB (09:40)
[2024-10-20 11:22] LABS: Glucose Point of Care 113 mg/dl (65-105)
--- NOTE | 2024-10-20 12:03 | PM.PNCARD ---
Progress Note: A&P Assessment and Plan (1) Hypertension: Code(s): I10 - Essential (primary) hypertension Status: Acute Plan 40-year-old woman with substance abuse, COPD, hypertension, active tobacco user presented with nausea, vomiting, weakness found to be hypertensive with positive methamphetamine on urine drug screen Troponin elevation -most likely as a result of her uncontrolled hypertension as well as the positive urine drug screen for methamphetamine -echocardiogram review normal biventricular systolic function with severe left ventricular hypertrophy -recommend blood pressure control and abstinence from illicit drugs Hypertension -recommend starting amlodipine 10 mg p.o. daily -can up titrate carvedilol as tolerated -remainder of blood pressure control as per hospitalist Cardiology will sign. Please call with additional questions Subjective Date/time seen: 10/20/24 12:03 Interval history: She is sleeping and having difficult time staying awake Review of Systems Review of Systems: ROS unobtainable: Yes unobtainable due to medical condition Exam Const: Other: Sleeping Neck: Neck: no JVD Resp: Effort & Inspection: normal respiratory effort Auscultation: clear to auscultation bilaterally Cardio: Rate: regular rate Rhythm: regular rhythm Extrem: General: no pedal edema Objective Data Vital Signs Vital Signs: Vital Signs - 24 hr 10/19/24 14:00 10/19/24 14:00 10/19/24 16:00 Temperature Pulse Rate 71 71 79 Respiratory Rate 20 Blood Pressure 149/92 H Pulse Oximetry 100 Oxygen Delivery 10/19/24 16:00 10/19/24 17:59 10/19/24 18:00 Temperature 37.1 C 36.4 C Pulse Rate 79 73 76 Respiratory Rate 18 22 H Blood Pressure 141/89 H 153/87 H Pulse Oximetry 100 100 Oxygen Delivery 10/19/24 20:00 10/19/24 20:00 10/19/24 20:00 Temperature Pulse Rate 87 87 Respiratory Rate 20 Blood Pressure 152/82 H Pulse Oximetry 95 Oxygen Delivery Room Air 10/19/24 20:10 10/19/24 21:06 10/19/24 23:26 Temperature 36.4 C L 37.1 C Pulse Rate 76 86 87 Respiratory Rate 20 20 Blood Pressure 152/82 H 162/90 H Pulse Oximetry 99 95 Oxygen Delivery 10/20/24 00:00 10/20/24 00:00 10/20/24 00:00 Temperature Pulse Rate 96 96 Respiratory Rate 20 Blood Pressure 162/90 H Pulse Oximetry 95 Oxygen Delivery Room Air 10/20/24 02:00 10/20/24 04:00 10/20/24 04:00 Temperature Pulse Rate 89 99 Respiratory Rate 20 Blood Pressure 190/88 H Pulse Oximetry 98 Oxygen Delivery Room Air 10/20/24 04:00 10/20/24 04:18 10/20/24 06:00 Temperature 36.4 C Pulse Rate 99 65 88 Respiratory Rate 20 Blood Pressure 190/88 H Pulse Oximetry 98 Oxygen Delivery 10/20/24 06:30 10/20/24 08:00 10/20/24 08:00 Temperature Pulse Rate 81 93 76 Respiratory Rate 20 Blood Pressure Pulse Oximetry 100 Oxygen Delivery Room Air 10/20/24 08:06 10/20/24 08:51 10/20/24 10:00 Temperature 36.5 C Pulse Rate 77 93 76 Respiratory Rate 20 Blood Pressure 189/86 H Pulse Oximetry 100 Oxygen Delivery 10/20/24 11:18 Temperature 36.7 C Pulse Rate 76 Respiratory Rate 19 Blood Pressure 176/98 H Pulse Oximetry 99 Oxygen Delivery Intake/Output Intake/Output: Intake & Output 10/17/24 10/18/24 10/19/24 10/20/24 23:59 23:59 23:59 23:59 Intake Total 2204.9 1091.2 1440 Output Total 875 1150 Balance 2204.9 216.2 290 Meds/Results Medications: Active Medications Generic Name Dose Route Start Last Admin Trade Name Freq PRN Reason Stop Dose Admin Acetaminophen 650 mg 10/19/24 00:31 Acetaminophen 325 Mg Tablet PO Q4H PRN Mild Pain (1-3) or Fever Al Hydrox/Mg Hydrox/Simethicone 30 ml 10/19/24 17:51 10/19/24 18:14 Mag Hydrox/Al Hydrox/Simeth 30 Ml Udc PO 30 ml Q6H PRN Administration Indigestion Aspirin 81 mg 10/19/24 09:00 10/20/24 08:51 Aspirin 81 Mg Enteric Tablet PO 81 mg QAM NIXON Administration Carvedilol 6.25 mg 10/19/24 09:00 10/20/24 08:51 Carvedilol 6.25 Mg Tablet PO 6.25 mg Q12HR NIXON Administration Chlordiazepoxide HCl 25 mg 10/20/24 09:09 Chlordiazepoxide (*Crx) 25 Mg Capsule PO Q6H PRN Withdrawal Clonidine HCl 0.1 mg 10/20/24 09:00 10/20/24 09:38 Clonidine Hcl 0.1 Mg Tablet PO 0.1 mg Q12HR NIXON Administration Dicyclomine HCl 20 mg 10/20/24 08:44 Dicyclomine Hcl 10 Mg Capsule PO QID PRN Abdominal Cramping Folic Acid 1 mg 10/19/24 09:00 10/20/24 09:38 Folic Acid 1 Mg/0.2 Ml Inj IV PUSH 1 mg QAM NIXON Administration Hydralazine HCl 20 mg 10/19/24 08:20 Hydralazine Hcl 20 Mg/Ml Vial IV PUSH Q4H PRN SBP more than 180 Thiamine HCl 300 mg/ Sodium 103 mls @ 206 mls/hr 10/19/24 09:00 10/20/24 09:40 Chloride IVPB 206 mls/hr DAILY NIXON Administration Ceftriaxone Sodium 1 gm in 50 mls @ 100 mls/hr 10/19/24 08:30 10/20/24 09:45 Rocephin 1 Gm/Ns 50 Ml IVPB 100 mls/hr DAILY NIXON Administration Labetalol HCl 10 mg 10/19/24 14:15 10/20/24 06:30 Labetalol Hcl Inj 100 Mg/20 Ml Vial IV PUSH 10 mg Q4H PRN Administration SBP > 180 -1st choce Lisinopril 40 mg 10/19/24 09:00 10/20/24 08:51 Lisinopril 20 Mg Tablet PO 40 mg QAM NIXON Administration Ondansetron HCl 4 mg 10/18/24 21:09 Ondansetron Inj 4 Mg/2 Ml Vial IV PUSH Q4H PRN Nausea Oxycodone/Acetaminophen 1 tablet 10/20/24 09:09 Oxycodone/Acetaminophen (*Crx) 5-325 Mg Tablet PO Q4H PRN Pain Rated 7-10 Perflutren Lipid Microsphere 0 ml 10/19/24 08:20 Perflutren Lipid Microspheres 1.5 Ml Vial Diluted To 10 Ml Total Volume IV PUSH 10/22/24 08:20 ONCE PRN adequate visualization Protocol Polyethylene Glycol 17 gm 10/20/24 09:00 10/20/24 09:38 Polyethylene Glycol 3350 17 Gm Powd.Pack PO 17 gm QAM NIXON Administration Senna/Docusate Sodium 1 tab 10/20/24 21:00 Senna/Docusate Sodium Tablet PO [facility] Radiology Results: ITS Impressions Forearm X-Ray 10/18/24 16:37 IMPRESSION: No acute fracture or dislocation Chest X-Ray 10/18/24 21:11 IMPRESSION: 1. No acute cardiopulmonary disease. Head CT 10/19/24 05:45 Impression: No significant abnormality seen. Abdomen X-Ray 10/19/24 18:14 IMPRESSION: NO ACUTE ABDOMINAL FINDINGS. Labs Labs: Laboratory Results - last 24 hr 10/19/24 10/20/24 10/20/24 15:17 04:10 11:17 WBC 13.3 H 13.9 H RBC 3.88 L 3.76 L Hgb 12.1 11.5 L Hct 35.8 L 33.6 L MCV 92.3 89.4 MCH 31.2 30.6 MCHC 33.8 34.2 RDW 12.7 12.5 Plt Count 170 163 MPV 12.1 H 12.5 H Immature Gran % (Auto) 0.4 Neut % (Auto) 81.4 H Lymph % (Auto) 9.8 L [place] % (Auto) 7.3 Eos % (Auto) 0.7 Baso % (Auto) 0.4 Lymph # (Auto) 1.36 [place] # (Auto) 1.0 H Eos # (Auto) 0.1 Baso # (Auto) 0.1 Abs Immat Gran (auto) 0.06 H Absolute Neuts (auto) 11.3 H Absolute Nucleated RBC 0.000 Nucleated RBC % 0.0 Sodium 136 L 132 L Potassium 4.2 3.6 Chloride 103 101 Carbon Dioxide 27 24 Anion Gap 6 7 BUN 18 H 14 Creatinine 0.90 0.80 Estim Creat Clear Calc 60 67 Estimated GFR > 60 > 60 Glucose 102 110 POC Capillary Glucose 113 H Calcium 8.1 L 8.3 L Phosphorus 2.9 Magnesium 2.1 Total Bilirubin 0.8 AST 23 ALT 13 Alkaline Phosphatase 85 Total Protein 6.0 L Albumin 3.4 L
--- NOTE | 2024-10-20 12:43 | P.PNIM_ITS ---
Progress Note: A&P Assessment and Plan (1) Substance abuse: Code(s): F19.10 - Other psychoactive substance abuse, uncomplicated Status: Acute (2) Uncontrolled hypertension: Code(s): I10 - Essential (primary) hypertension Status: Acute (3) NSTEMI (non-ST elevated myocardial infarction): Code(s): I21.4 - Non-ST elevation (NSTEMI) myocardial infarction Status: Acute (4) Acute hypokalemia: Code(s): E87.6 - Hypokalemia Status: Acute (5) Alcohol abuse: Code(s): F10.10 - Alcohol abuse, uncomplicated Status: Acute Plan Substance abuse CIWA and COWS score Started Librium and oxycodone 5mg PO q 6 hrs for pain. Thiamine and folic acid Lorazepam 2 mg q.4 hours p.r.n. for seizure Hydroxyzine 25 mg p.o. q.6 hours p.r.n. for anxiety Bentyl 20 mg p.o. q.6 hours p.r.n. for abdominal discomfort Methocarbamol 500 mg p.o. q.6 hours p.r.n. for muscle spasm Catapres 0.1 mg p.o. q.12 hours for HTN. Hold if BP less than 90/60 Monitor development of withdrawal symptoms Monitor LFTs Order ultrasound abdomen Hypoglycemic med protocol CBC and CMP including Mag and phos AST ALT Hepatitis panel, HIV Alcohol level Reviewed UDS results -positive Amphetamine Troponin elevation As per Cardiology -most likely as a result of her uncontrolled hypertension as well as the positive urine drug screen for methamphetamine -echocardiogram review normal biventricular systolic function with severe left ventricular hypertrophy HTN Patient was previously in ICU for Nitro drip Lisinopril 40mg PO QD, Clonidine 0.1mg PO BID, Coreg 12.5 mg PO BID,Amlodipine 10mg PO QD. Subjective Date/time seen: 10/20/24 12:43 Interval history: Abdominal KUB reveals no bowel obstruction. Patient was given Bentyl. Patient started on clonidine 0.1 mg p.o. b.i.d. and speech language pathology assistant started on amlodipine 10 mg and increase the dose of Coreg to 12.5 b.i.d. Review of Systems Review of Systems: All systems reviewed & are unremarkable except as noted in HPI and below ROS unobtainable: Yes unobtainable due to medical condition and unobtainable due to mental status Exam Narrative: General: Pt is drowsy, sleeping and in NAD Lungs/Chest: Trachea central Clear BS B/L, No crackles or wheezing. Cardiac: RRR. Normal S1 S2. No murmurs Circulation: Pedal pulses are intact and symmetrical. Abdomen: Normal bowel sounds.. Soft. NT. ND. Extremities: No clubbing, cyanosis or edema. Warm : Daniel in place Neurologic: Drowsy, falls asleep easily, wakes up on stimulation, follows commands with all 4 extremities PERRL Skin: No Rash Objective Data Vital Signs Vital Signs: Vital Signs - 24 hr 10/19/24 14:00 10/19/24 14:00 10/19/24 16:00 Temperature Pulse Rate 71 71 79 Respiratory Rate 20 Blood Pressure 149/92 H Pulse Oximetry 100 Oxygen Delivery 10/19/24 16:00 10/19/24 17:59 10/19/24 18:00 Temperature 98.7 F 97.6 F Pulse Rate 79 73 76 Respiratory Rate 18 22 H Blood Pressure 141/89 H 153/87 H Pulse Oximetry 100 100 Oxygen Delivery 10/19/24 20:00 10/19/24 20:00 10/19/24 20:00 Temperature Pulse Rate 87 87 Respiratory Rate 20 Blood Pressure 152/82 H Pulse Oximetry 95 Oxygen Delivery Room Air 10/19/24 20:10 10/19/24 21:06 10/19/24 23:26 Temperature 97.5 F L 98.7 F Pulse Rate 76 86 87 Respiratory Rate 20 20 Blood Pressure 152/82 H 162/90 H Pulse Oximetry 99 95 Oxygen Delivery 10/20/24 00:00 10/20/24 00:00 10/20/24 00:00 Temperature Pulse Rate 96 96 Respiratory Rate 20 Blood Pressure 162/90 H Pulse Oximetry 95 Oxygen Delivery Room Air 10/20/24 02:00 10/20/24 04:00 10/20/24 04:00 Temperature Pulse Rate 89 99 Respiratory Rate 20 Blood Pressure 190/88 H Pulse Oximetry 98 Oxygen Delivery Room Air 10/20/24 04:00 10/20/24 04:18 10/20/24 06:00 Temperature 97.6 F Pulse Rate 99 65 88 Respiratory Rate 20 Blood Pressure 190/88 H Pulse Oximetry 98 Oxygen Delivery 10/20/24 06:30 10/20/24 08:00 10/20/24 08:00 Temperature Pulse Rate 81 93 76 Respiratory Rate 20 Blood Pressure Pulse Oximetry 100 Oxygen Delivery Room Air 10/20/24 08:06 10/20/24 08:51 10/20/24 10:00 Temperature 97.7 F Pulse Rate 77 93 76 Respiratory Rate 20 Blood Pressure 189/86 H Pulse Oximetry 100 Oxygen Delivery 10/20/24 11:18 Temperature 98.1 F Pulse Rate 76 Respiratory Rate 19 Blood Pressure 176/98 H Pulse Oximetry 99 Oxygen Delivery Intake/Output Intake/Output: Intake & Output 10/17/24 10/18/24 10/19/24 10/20/24 23:59 23:59 23:59 23:59 Intake Total 2204.9 1091.2 1440 Output Total 875 1150 Balance 2204.9 216.2 290 Meds/Results Medications: Active Medications Generic Name Dose Route Start Last Admin Trade Name Freq PRN Reason Stop Dose Admin Acetaminophen 650 mg 10/19/24 00:31 Acetaminophen 325 Mg Tablet PO Q4H PRN Mild Pain (1-3) or Fever Al Hydrox/Mg Hydrox/Simethicone 30 ml 10/19/24 17:51 10/19/24 18:14 Mag Hydrox/Al Hydrox/Simeth 30 Ml Udc PO 30 ml Q6H PRN Administration Indigestion Amlodipine Besylate 10 mg 10/20/24 12:10 Amlodipine Besylate 10 Mg Tablet PO DAILY NIXON Aspirin 81 mg 10/19/24 09:00 10/20/24 08:51 Aspirin 81 Mg Enteric Tablet PO 81 mg QAM [facility] Administration Carvedilol 12.5 mg 10/20/24 21:00 Carvedilol 12.5 Mg Tablet PO Q12HR [facility] Chlordiazepoxide HCl 25 mg 10/20/24 09:09 Chlordiazepoxide (*Crx) 25 Mg Capsule PO Q6H PRN Withdrawal Clonidine HCl 0.1 mg 10/20/24 09:00 10/20/24 09:38 Clonidine Hcl 0.1 Mg Tablet PO 0.1 mg Q12HR [facility] Administration Dicyclomine HCl 20 mg 10/20/24 08:44 Dicyclomine Hcl 10 Mg Capsule PO QID PRN Abdominal Cramping Folic Acid 1 mg 10/19/24 09:00 10/20/24 09:38 Folic Acid 1 Mg/0.2 Ml Inj IV PUSH 1 mg QAM [facility] Administration Hydralazine HCl 20 mg 10/19/24 08:20 Hydralazine Hcl 20 Mg/Ml Vial IV PUSH Q4H PRN SBP more than 180 Thiamine HCl 300 mg/ Sodium 103 mls @ 206 mls/hr 10/19/24 09:00 10/20/24 09:40 Chloride IVPB 206 mls/hr DAILY [facility] Administration Ceftriaxone Sodium 1 gm in 50 mls @ 100 mls/hr 10/19/24 08:30 10/20/24 09:45 Rocephin 1 Gm/Ns 50 Ml IVPB 100 mls/hr DAILY [facility] Administration Labetalol HCl 10 mg 10/19/24 14:15 10/20/24 06:30 Labetalol Hcl Inj 100 Mg/20 Ml Vial IV PUSH 10 mg Q4H PRN Administration SBP > 180 -1st choce Lisinopril 40 mg 10/19/24 09:00 10/20/24 08:51 Lisinopril 20 Mg Tablet PO 40 mg QAM [facility] Administration Ondansetron HCl 4 mg 10/18/24 21:09 Ondansetron Inj 4 Mg/2 Ml Vial IV PUSH Q4H PRN Nausea Oxycodone/Acetaminophen 1 tablet 10/20/24 09:09 Oxycodone/Acetaminophen (*Crx) 5-325 Mg Tablet PO Q4H PRN Pain Rated 7-10 Perflutren Lipid Microsphere 0 ml 10/19/24 08:20 Perflutren Lipid Microspheres 1.5 Ml Vial Diluted To 10 Ml Total Volume IV PUSH 10/22/24 08:20 ONCE PRN adequate visualization Protocol Polyethylene Glycol 17 gm 10/20/24 09:00 10/20/24 09:38 Polyethylene Glycol 3350 17 Gm Powd.Pack PO 17 gm QAM [facility] Administration Senna/Docusate Sodium 1 tab 10/20/24 21:00 Senna/Docusate Sodium Tablet PO HS [facility] Radiology Results: ITS Impressions Forearm X-Ray 10/18/24 16:37 IMPRESSION: No acute fracture or dislocation Chest X-Ray 10/18/24 21:11 IMPRESSION: 1. No acute cardiopulmonary disease. Head CT 10/19/24 05:45 Impression: No significant abnormality seen. Abdomen X-Ray 10/19/24 18:14 IMPRESSION: NO ACUTE ABDOMINAL FINDINGS. Labs Labs: Laboratory Results - last 24 hr 10/19/24 10/20/24 10/20/24 15:17 04:10 11:17 WBC 13.3 H 13.9 H RBC 3.88 L 3.76 L Hgb 12.1 11.5 L Hct 35.8 L 33.6 L MCV 92.3 89.4 MCH 31.2 30.6 MCHC 33.8 34.2 RDW 12.7 12.5 Plt Count 170 163 MPV 12.1 H 12.5 H Immature Gran % (Auto) 0.4 Neut % (Auto) 81.4 H Lymph % (Auto) 9.8 L [place] % (Auto) 7.3 Eos % (Auto) 0.7 Baso % (Auto) 0.4 Lymph # (Auto) 1.36 [place] # (Auto) 1.0 H Eos # (Auto) 0.1 Baso # (Auto) 0.1 Abs Immat Gran (auto) 0.06 H Absolute Neuts (auto) 11.3 H Absolute Nucleated RBC 0.000 Nucleated RBC % 0.0 Sodium 136 L 132 L Potassium 4.2 3.6 Chloride 103 101 Carbon Dioxide 27 24 Anion Gap 6 7 BUN 18 H 14 Creatinine 0.90 0.80 Estim Creat Clear Calc 60 67 Estimated GFR > 60 > 60 Glucose 102 110 POC Capillary Glucose 113 H Calcium 8.1 L 8.3 L Phosphorus 2.9 Magnesium 2.1 Total Bilirubin 0.8 AST 23 ALT 13 Alkaline Phosphatase 85 Total Protein 6.0 L Albumin 3.4 L Hospitalist MIPS Advance Care Plan I have confirmed that the patient's Advanced Care Plan is present, code status is documented, or surrogate decision maker is listed in patient medical record.: Yes Medication Reconciliation I have utilized all available resources to obtain, update and review the patients current medications (includes all prescriptions, OTC, herbals, cannabis, and nutritional supplements).: Yes
[2024-10-20 13:29] LABS: Ethanol < 10 mg/dL (<10)
[2024-10-20 14:30] LABS: HIV 1/2 Ab P24 Ag Result Negative (Negative)
[2024-10-20] MEDS: amLODIPine BESYLATE 10 MG TABLET PO (16:21)
[2024-10-20] MEDS: methocarbamoL 500 MG TABLET PO ×2 (16:22→20:37)
[2024-10-20 17:49] LABS: HAV RESULT Negative (Negative); Hepatitis B Core IgM Result Negative (Negative); Hepatitis B Surface Antigen Negative (Negative)
[2024-10-20 17:57] LABS: Hepatitis C Virus Antibody Negative (Negative)
[2024-10-20 18:29] LABS: Glucose Point of Care 122 mg/dl (65-105)
[2024-10-20] MEDS: DICYCLOMINE HCL 10 MG CAPSULE 20 MG PO (19:41)
[2024-10-20] MEDS: carvediloL 12.5 MG TABLET PO (20:38)
[2024-10-20] MEDS: SENNA/DOCUSATE SODIUM TABLET 1 TAB PO (20:39)
[2024-10-20] MEDS: ONDANSETRON INJ 4 MG/2 ML VIAL IV PUSH (20:49)
[2024-10-20] MEDS: chlordiazePOXIDE (*CRX) 25 MG CAPSULE PO (20:49)
[2024-10-20] MEDS: PROMETHAZINE HCL 25 MG/ML AMPUL IM (23:35)
--- NOTE | 2024-10-20 23:48 | PM.EVENT ---
Event Note Event Note Event Note: 10/20/2024 at 23:15 nursing staff called because the patient was yelling out and screaming in pain. Patient was writhing around in the bed and complaining of severe abdominal pain. She had had a KUB done early in the day that was negative for acute process. I went down immediately to evaluate the patient in found the patient snoring in sleeping soundly. When I did touch the patient's abdomen she started moaning and crying but was intermittently falling asleep. Her abdomen was soft but hypoactive bowel sounds. She had no specific localizing tenderness in seemed to be tender to out. Her labs were reviewed from earlier in the day and demonstrated mild and abnormal LFTs. The patient had been afebrile. The patient had received Librium and Skelaxin just prior to my evaluation. Patient did not have any active vomiting but was [address] of the abdomen pelvis was performed as patient was a poor historian was not able to gait may great detail regarding her symptoms. Noncontrast CT was performed due to patient's reported contrast allergy. CT Of the abdomen pelvis without contrast demonstrated distended gallbladder containing a margin is hyperdense material in surrounding circumferential hypodensity suggesting gallbladder wall thickening. Findings were suggestive of sludge in cholecystitis According to the stat rad interpretation. At the time of my review the patient also seemed to have a large amount of stool load in the colon extending towards the splenic flexure. the right upper quadrant ultrasound has been ordered for a.m.. Will also give dose of Relistor in a.m.. Will change patient's MiraLax to 17 g q.8 hours scheduled until multiple bowel movements. 30 minute spent in critical care activities. Due to a high probability of clinically significant, life threatening deterioration, the patient required my highest level of preparedness to intervene emergently and I personally spent this critical care time directly and personally managing the patient. This critical care time included obtaining a history; examining the patient; pulse oximetry; ordering and review of studies; arranging urgent treatment with development of a management plan; evaluation of patient's response to treatment; frequent reassessment; and discussions with other providers. It was exclusive of separately billable procedures and treating other patients and teaching time. Please see Assessment and Plan section and the rest of the note for further information on patient assessment and treatment.
[2024-10-21] VITALS (16 sets, daily range): BP systolic 119–161; BP diastolic 49–77; PULSE 65–82; RESP 16–20; TEMP 36.6–39.2; O2SAT 97–100
[2024-10-21 04:48] LABS: Basophils Percent Auto 0.3 % (0.2-1.2); Eosinophils Absolute Auto 0.1 K/mm3 (0-0.3); Eosinophils Percent Auto 0.6 % (0-4.4); Hematocrit 32.7 % (37.0-47.0); Hemoglobin 11.2 g/dL (12.0-15.0); Immature Granulocyte Absolute 0.08 K/mm3 (0.00-0.031); Immature Granulocyte Percent A 0.5 % (0-0.5); Lymphocytes Absolute Auto 1.04 K/mm3 (0.9-3.2); Mean Corpuscular HGB Conc 34.3 g/dl (32-36); Mean Corpuscular Hemoglobin 31.4 pg (26-34); Mean Corpuscular Volume 91.6 fl (80-100); Mean Platelet Volume 12.2 fl (7.4-10.4); Monocytes Absolute Auto 1.3 K/mm3 (0.1-0.6); Monocytes Percent Auto 8.9 % (2.6-8.5); Neutrophils Absolute Auto 12.3 K/mm3 (1.3-6.7); Neutrophils Percent Auto 82.7 % (45.5-73.1); Platelet Count Result 161 k/mm3 (150-375); Red Blood Count 3.57 M/mm3 (4.2-5.4); Red Cell Distribution Width 12.7 % (11.5-14.5); White Blood Count 14.9 K/mm3 (4.5-10.0)
[2024-10-21 05:03] LABS: Alanine Aminotransferase 13 U/L (6-35); Albumin Level 3.2 g/dL (3.5-5.1); Alkaline Phosphatase 76 U/L (38-126); Anion Gap 5 mmol/L (4-12); Aspartate Amino Transferase 26 U/L (14-36); Bilirubin,Total 0.7 mg/dL (0.2-1.3); Blood Urea Nitrogen 15 mg/dL (7-17); Calcium 8.2 mg/dL (8.4-10.2); Carbon Dioxide 27 mmol/L (22-30); Chloride 102 mmol/L (98-107); Estimated CRCL calculation 56 ml/min; Estimated Glomerular Filt Rate > 60; Glucose 118 mg/dL (65-110); Phosphorus 3.2 mg/dL (2.5-4.5); Sodium 134 mmol/L (137-145)
[2024-10-21] MEDS: METHYLNALTREXONE 12 MG/0.6 ML VIAL SUB-Q (06:01)
[2024-10-21] MEDS: ONDANSETRON INJ 4 MG/2 ML VIAL IV PUSH ×2 (06:02→14:06)
[2024-10-21] MEDS: DICYCLOMINE HCL 10 MG CAPSULE 20 MG PO ×2 (06:02→14:06)
[2024-10-21] MEDS: chlordiazePOXIDE (*CRX) 25 MG CAPSULE PO (06:02)
[2024-10-21] MEDS: oxyCODONE/ACETAMINOPHEN (*CRX) 5-325 MG TABLET 1 TABLET PO (06:02)
[2024-10-21] MEDS: FOLIC ACID 1 MG/0.2 ML INJ IV PUSH (09:53)
[2024-10-21] MEDS: methocarbamoL 500 MG TABLET PO ×2 (09:54→14:06)
[2024-10-21] MEDS: lisinopriL 20 MG TABLET 40 MG PO (09:54)
[2024-10-21] MEDS: carvediloL 12.5 MG TABLET PO (09:54)
[2024-10-21] MEDS: cloNIDine HCL 0.1 MG TABLET PO ×2 (09:54→21:45)
[2024-10-21] MEDS: ASPIRIN 81 MG ENTERIC TABLET PO (09:55)
[2024-10-21] MEDS: amLODIPine BESYLATE 10 MG TABLET PO (09:55)
[2024-10-21] MEDS: LACTULOSE 20 GM/30 ML UDC PO (09:55)
[2024-10-21] MEDS: metroNIDAZOLE 500 MG/ISO 100ML 500 MG/100 ML BAG 100 MG IVPB ×2 (10:28→17:53)
[2024-10-21] MEDS: THIAMINE HCL INJ 300 MG in SODIUM CHLORIDE 0.9% IV 100 ML 206 MG IVPB (11:35)
--- NOTE | 2024-10-21 11:59 | PCNFU ---
Nutrition Follow-Up Complete: Severe Protein Calorie Malnutrition as related to inadequate protein energy intake in the setting of acute disease as evidenced by < 75% of EER for > 7 days; moderate muscle wasting (temporalis) and moderate subcutaneous fat loss (orbital fat pads). Meet estimated nutritional needs. - Not progressing. Intakes 25% on regular before NPO Goal: Pt current nutrition is NPO for ultrasound Nutrition recommendation: Resume regular diet and Ensure Enlive TID (350 kcal, 20 g protein each) after procedure Last recorded weight is 58.5 kg. Bowel Motility: Last BM 10/11/24. Bowel regimen is underway Labs Reviewed: Hgb 11.2, Hct 32.7, Na 134, Glu 118 Meds Noted: Thiamine, folic acid, senna, miralax, lactulose Skin: No skin issues Additional Notes: Pt having ultrasound today for abdominal pain. Resume diet after procedure. Sleeping a lot and not eating much. Will monitor weight, labs, skin, diet orders, meds every 3 days.
[2024-10-21] MEDS: polyethylene glycoL 3350 17 GM POWD.PACK PO (14:06)
[2024-10-21] MEDS: MAG HYDROX/AL HYDROX/SIMETH 30 ML UDC PO (14:06)
[2024-10-21] MEDS: ACETAMINOPHEN 325 MG TABLET 650 MG PO (15:57)
[2024-10-21 16:46] LABS: Lactic Acid Reflex 1.5 mmol/L (0.7-2.0)
--- NOTE | 2024-10-21 16:58 | P.PNIM_ITS ---
Progress Note: A&P Assessment and Plan (1) Substance abuse: Code(s): F19.10 - Other psychoactive substance abuse, uncomplicated Status: Acute (2) Uncontrolled hypertension: Code(s): I10 - Essential (primary) hypertension Status: Acute (3) NSTEMI (non-ST elevated myocardial infarction): Code(s): I21.4 - Non-ST elevation (NSTEMI) myocardial infarction Status: Acute (4) Acute hypokalemia: Code(s): E87.6 - Hypokalemia Status: Acute (5) Alcohol abuse: Code(s): F10.10 - Alcohol abuse, uncomplicated Status: Acute (6) Cholecystitis: Code(s): K81.9 - Cholecystitis, unspecified Status: Acute Plan Substance abuse CIWA and COWS score Started Librium and oxycodone 5mg PO q 6 hrs for pain. Thiamine and folic acid Lorazepam 2 mg q.4 hours p.r.n. for seizure Hydroxyzine 25 mg p.o. q.6 hours p.r.n. for anxiety Bentyl 20 mg p.o. q.6 hours p.r.n. for abdominal discomfort Hold Methocarbamol 500 mg p.o. q.6 hours p.r.n. for muscle spasm Hold Catapres 0.1 mg p.o. q.12 hours for HTN due to lower blood pressure Hold if BP less than 90/60 Monitor development of withdrawal symptoms Monitor LFTs Order ultrasound abdomen Hypoglycemic med protocol CBC and CMP including Mag and phos AST ALT Hepatitis panel, HIV Alcohol level Reviewed UDS results -positive Amphetamine Troponin elevation As per Cardiology -most likely as a result of her uncontrolled hypertension as well as the positive urine drug screen for methamphetamine -echocardiogram review normal biventricular systolic function with severe left ventricular hypertrophy HTN Patient was previously in ICU for Nitro drip Hold Lisinopril 40mg PO QD, Clonidine 0.1mg PO BID, Coreg 12.5 mg PO BID,Amlodipine 10mg PO QD. Cholecystitis US Abd:1. Distended gallbladder with sludge. Severe gallbladder wall thickening may be seen with chronic liver disease or chronic cholecystitis. No sonographic Fernando's sign to suggest acute cholecystitis. If there is clinical concern for acute cholecystitis, consider hepatobiliary scintigraphy. CT Abd/Pelvis:Probable gallbladder sludge and diffuse gallbladder wall thickening/edematous change. Correlate for acute cholecystitis. Consider ultrasound and/or HIDA scan for further evaluation.Air in urinary bladder, which may be iatrogenic. Correlate clinically.2 mm nonobstructing left renal stone. Continue ceftriaxone and added metronidazole Order HIDA scan, Blood culture, lactic acid Surgery consulted and appreciated recommendation Subjective Date/time seen: 10/21/24 16:58 Interval history: Patient had a severe episode of abdominal pain yesterday night and CT scan was performed which shows possible acute cholecystitis. Ultrasound was performed which shows severe gallbladder wall thickening may be seen with chronic liver disease or chronic cholecystitis. HIDA scan is also ordered. Patient is allergic to penicillin. Patient is already on ceftriaxone and added metronidazole. Consulted surgery. Patient had episode of fever. Ordered blood culture, lactic acid and holding blood pressure medications since her blood pressure is soft Review of Systems Review of Systems: All systems reviewed & are unremarkable except as noted in HPI and below ROS unobtainable: Yes unobtainable due to medical condition and unobtainable due to mental status Exam Narrative: General: Pt is drowsy, sleeping and in NAD Lungs/Chest: Trachea central Clear BS B/L, No crackles or wheezing. Cardiac: RRR. Normal S1 S2. No murmurs Circulation: Pedal pulses are intact and symmetrical. Abdomen: Normal bowel sounds.. Soft. NT. ND. Extremities: No clubbing, cyanosis or edema. Warm : Daniel in place Neurologic: Drowsy, falls asleep easily, wakes up on stimulation, follows commands with all 4 extremities PERRL Skin: No Rash Objective Data Vital Signs Vital Signs: Vital Signs - 24 hr 10/20/24 18:00 10/20/24 20:00 10/20/24 20:00 Temperature 99.3 F Pulse Rate 78 78 Respiratory Rate 18 Blood Pressure 155/81 H Pulse Oximetry 97 Oxygen Delivery Room Air 10/20/24 20:00 10/20/24 20:38 10/20/24 22:00 Temperature Pulse Rate 83 84 74 Respiratory Rate Blood Pressure Pulse Oximetry Oxygen Delivery 10/21/24 00:00 10/21/24 00:00 10/21/24 00:00 Temperature 98.3 F Pulse Rate 75 74 Respiratory Rate 18 Blood Pressure 138/64 Pulse Oximetry 99 Oxygen Delivery Room Air 10/21/24 02:00 10/21/24 04:00 10/21/24 04:00 Temperature Pulse Rate 78 79 Respiratory Rate Blood Pressure 138/64 Pulse Oximetry Oxygen Delivery 10/21/24 04:00 10/21/24 04:00 10/21/24 06:00 Temperature 97.9 F Pulse Rate 79 74 Respiratory Rate 16 Blood Pressure 161/77 H Pulse Oximetry 99 Oxygen Delivery Room Air 10/21/24 07:48 10/21/24 08:00 10/21/24 09:54 Temperature 99.0 F Pulse Rate 76 71 73 Respiratory Rate 20 Blood Pressure 158/71 H Pulse Oximetry 99 Oxygen Delivery 10/21/24 10:00 10/21/24 11:44 10/21/24 12:00 Temperature 98.9 F Pulse Rate 82 71 72 Respiratory Rate 18 Blood Pressure 143/64 H Pulse Oximetry 100 Oxygen Delivery 10/21/24 14:00 10/21/24 15:25 10/21/24 15:57 Temperature 102.5 F H 102 F H Pulse Rate 65 76 Respiratory Rate 18 Blood Pressure 129/49 L Pulse Oximetry 97 Oxygen Delivery Intake/Output Intake/Output: Intake & Output 10/18/24 10/19/24 10/20/24 10/21/24 23:59 23:59 23:59 23:59 Intake Total 2204.9 1091.2 1843 650 Output Total 875 1451 700 Balance 2204.9 216.2 392 -50 Meds/Results Medications: Active Medications Generic Name Dose Route Start Last Admin Trade Name Freq PRN Reason Stop Dose Admin Acetaminophen 650 mg 10/19/24 00:31 10/21/24 15:57 Acetaminophen 325 Mg Tablet PO 650 mg Q4H PRN Administration Mild Pain (1-3) or Fever Al Hydrox/Mg Hydrox/Simethicone 30 ml 10/19/24 17:51 10/21/24 14:06 Mag Hydrox/Al Hydrox/Simeth 30 Ml Udc PO 30 ml Q6H PRN Administration Indigestion Amlodipine Besylate 10 mg 10/20/24 12:10 10/21/24 09:55 Amlodipine Besylate 10 Mg Tablet PO 10 mg DAILY NIXON Administration Aspirin 81 mg 10/19/24 09:00 10/21/24 09:55 Aspirin 81 Mg Enteric Tablet PO 81 mg QAM [facility] Administration Carvedilol 12.5 mg 10/20/24 21:00 10/21/24 09:54 Carvedilol 12.5 Mg Tablet PO 12.5 mg Q12HR [facility] Administration Chlordiazepoxide HCl 25 mg 10/20/24 09:09 10/21/24 06:02 Chlordiazepoxide (*Crx) 25 Mg Capsule PO 25 mg Q6H PRN Administration Withdrawal Clonidine HCl 0.1 mg 10/20/24 09:00 10/21/24 09:54 Clonidine Hcl 0.1 Mg Tablet PO 0.1 mg Q12HR [facility] Administration Dicyclomine HCl 20 mg 10/20/24 08:44 10/21/24 14:06 Dicyclomine Hcl 10 Mg Capsule PO 20 mg QID PRN Administration Abdominal Cramping Folic Acid 1 mg 10/19/24 09:00 10/21/24 09:53 Folic Acid 1 Mg/0.2 Ml Inj IV PUSH 1 mg QAM [facility] Administration Hydralazine HCl 20 mg 10/19/24 08:20 Hydralazine Hcl 20 Mg/Ml Vial IV PUSH Q4H PRN SBP more than 180 Hydroxyzine HCl 25 mg 10/20/24 12:45 Hydroxyzine Hcl 50 Mg/Ml Vial IM Q4H PRN Anxiety Thiamine HCl 300 mg/ Sodium 103 mls @ 206 mls/hr 10/19/24 09:00 10/21/24 11:35 Chloride IVPB 206 mls/hr DAILY [facility]ON Administration Ceftriaxone Sodium 1 gm in 50 mls @ 100 mls/hr 10/19/24 08:30 10/21/24 11:23 Rocephin 1 Gm/Ns 50 Ml IVPB Infused DAILY NIXON Infusion Metronidazole 500 mg in 100 mls @ 100 mls/hr 10/21/24 10:00 10/21/24 11:28 Flagyl 500 Mg/Iso Soln 100 Ml IVPB Infused Q8H [facility]ON Infusion Labetalol HCl 10 mg 10/19/24 14:15 10/20/24 06:30 Labetalol Hcl Inj 100 Mg/20 Ml Vial IV PUSH 10 mg Q4H PRN Administration SBP > 180 -1st choce Lactulose 20 gm 10/21/24 09:40 10/21/24 09:55 Lactulose 20 Gm/30 Ml Udc PO 20 gm QAM [facility] Administration Lisinopril 40 mg 10/19/24 09:00 10/21/24 09:54 Lisinopril 20 Mg Tablet PO 40 mg QAM [facility] Administration Lorazepam 2 mg 10/20/24 12:44 Lorazepam Inj (*Crx) 2 Mg/Ml Vial IV PUSH Q6H PRN Seizures Ondansetron HCl 4 mg 10/18/24 21:09 10/21/24 14:06 Ondansetron Inj 4 Mg/2 Ml Vial IV PUSH 4 mg Q4H PRN Administration Nausea Oxycodone/Acetaminophen 1 tablet 10/20/24 09:09 10/21/24 06:02 Oxycodone/Acetaminophen (*Crx) 5-325 Mg Tablet PO 1 tablet Q4H PRN Administration Pain Rated 7-10 Perflutren Lipid Microsphere 0 ml 10/19/24 08:20 Perflutren Lipid Microspheres 1.5 Ml Vial Diluted To 10 Ml Total Volume IV PUSH 10/22/24 08:20 ONCE PRN adequate visualization Protocol Polyethylene Glycol 17 gm 10/21/24 04:00 10/21/24 14:06 Polyethylene Glycol 3350 17 Gm Powd.Pack PO 17 gm Q8HR [facility] Administration Senna/Docusate Sodium 1 tab 10/20/24 21:00 10/20/24 20:39 Senna/Docusate Sodium Tablet PO 1 tab HS [facility] Administration Radiology Results: ITS Impressions Forearm X-Ray 10/18/24 16:37 IMPRESSION: No acute fracture or dislocation Chest X-Ray 10/18/24 21:11 IMPRESSION: 1. No acute cardiopulmonary disease. Head CT 10/19/24 05:45 Impression: No significant abnormality seen. Abdomen X-Ray 10/19/24 18:14 IMPRESSION: NO ACUTE ABDOMINAL FINDINGS. Abdomen/Pelvis CT 10/21/24 05:24 Impression: Probable gallbladder sludge and diffuse gallbladder wall thickening/edematous change. Correlate for acute cholecystitis. Consider ultrasound and/or HIDA scan for further evaluation. Air in urinary bladder, which may be iatrogenic. Correlate clinically. 2 mm nonobstructing left renal stone. Upper Quadrant Ultrasound 10/21/24 08:18 IMPRESSION: 1. Distended gallbladder with sludge. Severe gallbladder wall thickening may be seen with chronic liver disease or chronic cholecystitis. No sonographic Fernando's sign to suggest acute cholecystitis. If there is clinical concern for acute cholecystitis, consider hepatobiliary scintigraphy. Labs Labs: Laboratory Results - last 24 hr 10/20/24 10/20/2425 13:06 18:27 04:28 WBC 14.9 H RBC 3.57 L Hgb 11.2 L Hct 32.7 L MCV 91.6 MCH 31.4 MCHC 34.3 RDW 12.7 Plt Count 161 MPV 12.2 H Immature Gran % (Auto) 0.5 Neut % (Auto) 82.7 H Lymph % (Auto) 7.0 L [place] % (Auto) 8.9 H Eos % (Auto) 0.6 Baso % (Auto) 0.3 Lymph # (Auto) 1.04 [place] # (Auto) 1.3 H Eos # (Auto) 0.1 Baso # (Auto) 0.0 Abs Immat Gran (auto) 0.08 H Absolute Neuts (auto) 12.3 H Absolute Nucleated RBC 0.000 Nucleated RBC % 0.0 Sodium 134 L Potassium 4.0 Chloride 102 Carbon Dioxide 27 Anion Gap 5 BUN 15 Creatinine 0.98 Estim Creat Clear Calc 56 Estimated GFR > 60 Glucose 118 H POC Capillary Glucose 122 H Lactic Acid Calcium 8.2 L Phosphorus 3.2 Magnesium 2.0 Total Bilirubin 0.7 AST 26 ALT 13 Alkaline Phosphatase 76 Total Protein 6.0 L Albumin 3.2 L Hepatitis A IgM Ab Negative Hep Bs Antigen Negative Hep B Core IgM Ab Negative Hepatitis C Ab Screen Negative 10/21/24 16:25 WBC RBC Hgb Hct MCV MCH MCHC RDW Plt Count MPV Immature Gran % (Auto) Neut % (Auto) Lymph % (Auto) [place] % (Auto) Eos % (Auto) Baso % (Auto) Lymph # (Auto) [place] # (Auto) Eos # (Auto) Baso # (Auto) Abs Immat Gran (auto) Absolute Neuts (auto) Absolute Nucleated RBC Nucleated RBC % Sodium Potassium Chloride Carbon Dioxide Anion Gap BUN Creatinine Estim Creat Clear Calc Estimated GFR Glucose POC Capillary Glucose Lactic Acid 1.5 Calcium Phosphorus Magnesium Total Bilirubin AST ALT Alkaline Phosphatase Total Protein Albumin Hepatitis A IgM Ab Hep Bs Antigen Hep B Core IgM Ab Hepatitis C Ab Screen Quality VTE Prophylaxis VTE prophylaxis: pharmacologic ordered Hospitalist MIPS Advance Care Plan I have confirmed that the patient's Advanced Care Plan is present, code status is documented, or surrogate decision maker is listed in patient medical record.: Yes Medication Reconciliation I have utilized all available resources to obtain, update and review the patients current medications (includes all prescriptions, OTC, herbals, cannabis, and nutritional supplements).: Yes
--- NOTE | 2024-10-21 18:50 | WPDCN ---
Assessment and Plan Assessment and plan (1) Substance abuse: Code(s): F19.10 - Other psychoactive substance abuse, uncomplicated Status: Acute Assessment and Plan: Patient positive for illicit substances admission. Management as per hospitalist. (2) Alcohol withdrawal: Qualifiers: Complication of substance-induced condition: uncomplicated Qualified Code(s): F10.930 - Alcohol use, unspecified with withdrawal, uncomplicated Code(s): F10.939 - Alcohol use, unspecified with withdrawal, unspecified Status: Acute Assessment and Plan: Patient initially treated in admitted to the hospital ICU for acute alcohol withdrawal and hypertensive emergency. She has been transferred out of the ICU to the floor and is closely being monitored for other signs of acute alcohol withdrawal. (3) Uncontrolled hypertension: Code(s): I10 - Essential (primary) hypertension Status: Acute Assessment and Plan: Better controlled now on and he had% of medications. Management as per hospitalist service. (4) Protein calorie malnutrition: Code(s): E46 - Unspecified protein-calorie malnutrition Status: Acute Assessment and Plan: Patient's albumin is 3.2 which is low. Patient has likely had mild chronic malnutrition due to her alcohol abuse. (5) Abnormal CT scan, gallbladder: Code(s): R93.2 - Abnormal findings on diagnostic imaging of liver and biliary tract Status: Acute Assessment and Plan: Both imaging with ultrasound and CT scan show gallbladder wall thickening and edema as well as gallbladder sludge. This can be seen in people who have alcoholic liver disease. She is having subjective and objective pain and tenderness in the upper abdomen. White blood count is elevated. Will repeat CBC and liver enzymes tomorrow. HIDA scan has been ordered as suggested by Radiology and if this is not abnormal as well then certainly intervention for her gallbladder would be recommended. Urgent surgical management cholecystectomy versus is less invasive approach with placement of cholecystostomy tube to decompress the gallbladder would be options. Continue work with HIDA scan which can hopefully be done tomorrow. HPI Data of Consult Date/Time: 10/21/24 18:50 Requesting Physician: Tono Brady MD Primary Care Provider: Joellen Shepherd NP Consult Narrative Reason for consult: Upper abdominal pain, abnormal gallbladder imaging Narrative: Elham Bennett is a 48 year old female admitted to the hospital for hypertensive emergency and alcohol withdrawal. She was also thought to have had a possible [place] but after evaluation cardiology was thought that her elevated troponin levels were due to her uncontrolled hypertension and use of illicit drugs. She was initially admitted to the ICU and was transferred to the IMU. She has more recently been complaining of epigastric abdominal pain. Workup with a abdominal ultrasound showed gallbladder sludge and gallbladder wall thickening. CT scan showed edema in the wall the gallbladder and gallstones as well. Liver enzymes are actually normal. Total bilirubin is normal. When I went to interview the patient she was sleeping but then when I woke her up seemed to be very disoriented and very drowsy. Upon questioning about her abdominal pain she stated she had pain under her ribs. [place] [id number]. Review of Systems Review of Systems: The remainder of the review of systems to include constitutional, HEENT, cardiovascular, respiratory, GI, , integumentary, musculoskeletal, endocrine, immunologic, hematologic, psychiatric, and neurologic are all negative except for which is mentioned above in the HPI. [facility] Past Medical History Medical History Depression (11/08/15) Cellulitis of foot Nicotine dependence, cigarettes, with unspecified nicotine-induced disorders JANAE (generalized anxiety disorder) Hypertension Surgical History Surgical History History of endometrial ablation History of tonsillectomy and adenoidectomy Family History Family History Mother JANAE (generalized anxiety disorder) COPD (chronic obstructive pulmonary disease) Hypertension Father Hypertension Lung cancer Bone cancer Brain tumor Social History Social History Smoking packs per day: 1 Smoking cigarettes per day: 20.0 Years smoked: 26 Smoking pack-years: 26.00 Smoking status: Current every day smoker Tobacco type: cigarettes Second hand tobacco smoke exposure: Yes Additional smoking assessment comments: She has smoked 1 pack of cigarettes per day since age 18. Alcohol intake: current Drinks per week: 1 Substance use: former Substance use type: marijuana, crack/cocaine and methamphetamine Last use: 10/08/2024 Do You Feel Safe in your Home?: Yes Lack of Transportation: YES Lack of Food: Often True Current Housing: I Have Housing Concerned About Future Housing: No Difficulty Paying Gas/Electric Bills: YES Difficulty Paying for Meds: No Currently Unemployed: YES Education: Trade/Vocational Certificate Difficulty w/ Childcare or Family Care: No Living arrangements: alone Additional living arrangements comments: She is been since 2018. She has 2 children. Her daughter moved out when her and her daughter now lives with her grandparents. 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 Her parents are planning to moved to assisted living March 2022. Occupation/Education: unemployed Gender identity (if verbalized by the patient): Female Spiritual care concerns: No Meds Home Medications and Allergies Home Medications ?Medication ?Instructions ?Recorded ?Confirmed ?Type albuterol sulfate 90 mcg/actuation 90 mcg inhalation Q4-6H PRN 02/14/22 10/18/24 History aerosol inhaler Shortness Of Breath Or Wheezing lisinopril 40 mg tablet 40 mg PO DAILY 02/14/22 10/18/24 History ondansetron HCl 4 mg tablet 4 mg PO Q8H PRN nausea and 12/27/22 10/18/24 Rx vomiting 4 days #10 tabs azithromycin 250 mg tablet 250 mg PO DAILY 10 days #10 tabs 12/28/22 10/18/24 Rx (Zithromax Z-Tristian) capsaicin 0.075 % topical cream 1 applic topical TID 1 week #57 12/28/22 10/18/24 Rx grams lorazepam 1 mg tablet (Ativan) 1 mg PO BID PRN nausea and 12/28/22 10/18/24 Rx vomiting #20 tabs metoclopramide HCl 5 mg tablet 5 mg PO DAILY 2 weeks #14 tabs 12/28/22 10/18/24 Rx (Reglan) Allergies Allergy/AdvReac Type Severity Reaction Status Date / Time penicillin G Allergy Severe mouth and Verified 10/21/24 09:06 throat swell latex Allergy Intermediate Unknown Verified 10/18/24 23:35 levofloxacin (Levaquin) Allergy Intermediate Itching Verified 10/18/24 23:35 Iodinated Contrast Media Allergy Mild sneezing, Verified 10/18/24 23:35 stuffy head mupirocin Allergy Rash Verified 10/18/24 23:35 Sulfa (Sulfonamide AdvReac Mild Nausea and Verified 10/18/24 23:35 Antibiotics) Vomiting Vital Signs Vital Signs - 24 hr 10/20/24 20:00 10/20/24 20:00 10/20/24 20:00 Temperature 37.4 C Pulse Rate 78 83 Respiratory Rate 18 Blood Pressure 155/81 H Pulse Oximetry 97 Oxygen Delivery Room Air 10/20/24 20:38 10/20/24 22:00 10/21/24 00:00 Temperature 36.8 C Pulse Rate 84 74 75 Respiratory Rate 18 Blood Pressure 138/64 Pulse Oximetry 99 Oxygen Delivery 10/21/24 00:00 10/21/24 00:00 10/21/24 02:00 Temperature Pulse Rate 74 78 Respiratory Rate Blood Pressure Pulse Oximetry Oxygen Delivery Room Air 10/21/24 04:00 10/21/24 04:00 10/21/24 04:00 Temperature Pulse Rate 79 Respiratory Rate Blood Pressure 138/64 Pulse Oximetry Oxygen Delivery Room Air 10/21/24 04:00 10/21/24 06:00 10/21/24 07:48 Temperature 36.6 C 37.2 C Pulse Rate 79 74 76 Respiratory Rate 16 20 Blood Pressure 161/77 H 158/71 H Pulse Oximetry 99 99 Oxygen Delivery 10/21/24 08:00 10/21/24 09:54 10/21/24 10:00 Temperature Pulse Rate 71 73 82 Respiratory Rate Blood Pressure Pulse Oximetry Oxygen Delivery 10/21/24 11:44 10/21/24 12:00 10/21/24 14:00 Temperature 37.2 C Pulse Rate 71 72 65 Respiratory Rate 18 Blood Pressure 143/64 H Pulse Oximetry 100 Oxygen Delivery 10/21/24 15:25 10/21/24 15:57 10/21/24 16:00 Temperature 39.2 C H 38.8 C H Pulse Rate 76 77 Respiratory Rate 18 Blood Pressure 129/49 L Pulse Oximetry 97 Oxygen Delivery Exam Const: Other: Patient was initially sleeping but then upon being awakened she complained having some upper abdominal pain. Seen to be in some mild distress from the pain after she was awoken. Eyes: General: appearance normal, both eyes and all related structures Sclera: sclerae normal Pupils: Equal, round and reactive pupils present EOM: EOMs intact bilaterally Neck: Neck: supple and no JVD Resp: Effort & Inspection: normal respiratory effort Auscultation: clear to auscultation bilaterally Cardio: Rate: regular rate Rhythm: regular rhythm GI: Other: Abdomen is soft and mildly distended. She has tenderness to palpation epigastric region the right upper quadrant. Gallbladder is not palpable. She has some mild voluntary guarding but no generalized peritoneal signs. No ventral hernias noted. Skin: General skin exam: normal color and no rashes or lesions noted Neuro: General: gait normal Sensory Exam: normal sensation Extrem: General: normal to inspection Psych: Affect: Sad affect present Results Labs 10/21/24 04:28 10/21/24 04:28 Labs: Short CBC 10/21/24 Range/Units 04:28 WBC 14.9 H (4.5-10.0) K/mm3 Hgb 11.2 L (12.0-15.0) g/dL Hct 32.7 L (37.0-47.0) % Plt Count 161 (150-375) k/mm3 BMP 10/21/24 04:28 Sodium 134 L Potassium 4.0 Chloride 102 Carbon Dioxide 27 BUN 15 Creatinine 0.98 Glucose 118 H Calcium 8.2 L Liver Function 10/21/24 Range/Units 04:28 Total Bilirubin 0.7 (0.2-1.3) mg/dL AST 26 (14-36) U/L ALT 13 (6-35) U/L Alkaline Phosphatase 76 (38-126) U/L Albumin 3.2 L (3.5-5.1) g/dL Imaging Radiologist's impression: Ultrasound Report Signed Patient: Elham Bennett : 1975 MR#: [id number] Age: 48 Acct:[id number] Loc: [facility] 213-01 ADM Date: 10/18/24Attending Dr: Tono Brady M.D. Ordering Physician: Liv Morin DO Date of Service: 10/21/24 Procedure(s): US right upper quadrant Accession Number(s): [id number] cc: Tono Brady MD; Joellen Shepherd APN; Liv Morin DO~ EXAMINATION: US right upper quadrant DATE: 10/21/2024 08:05 INDICATION: Abdominal pain. TECHNIQUE: Multiple grayscale and Doppler ultrasound images of the abdomen were obtained. COMPARISON: CT abdomen and pelvis 10/21/2024 FINDINGS: The visualized portions of the head, body, and tail of the pancreas are normal. The liver is normal without focal lesion. No liver surface nodularity. There is normal flow in main portal vein. The gallbladder is distended and contains sludge. There is severe gallbladder wall thickening. There is no sonographic Fernando's sign. The common duct is normal and measures 5 mm. IMPRESSION: 1. Distended gallbladder with sludge. Severe gallbladder wall thickening may be seen with chronic liver disease or chronic cholecystitis. No sonographic Fernando's sign to suggest acute cholecystitis. If there is clinical concern for acute cholecystitis, consider hepatobiliary scintigraphy. Reviewed, dictated and finalized at location L. Please be advised this is a medical document. It is intended for eyiv-ia-suja communication. It is written in medical language and may contain unfamiliar abbreviations or verbiage. Medical documents are intended to carry relevant information, facts as evident, and the clinical opinion of the practitioner at the time of the encounter. This report may have been done utilizing a voice recognition system. Attempts have been made to correct errors. However, there may be uncorrected grammatical, spelling, and recognition errors present. The file time of this note does not necessarily represent the time of service. Dictated By: Jadiel Arechiga MD 10/21/24 0818 Signed By: <Electronically signed by Jadiel Arechiga MD in OV> CT Scan Report Signed Patient: Elham Bennett : 1975 MR#: [id number] Age: 48 Acct:[id number] Loc: [facility] 213-01 ADM Date: 10/18/24Attending Dr: Tono Brady M.D. Ordering Physician: Liv Morin DO Date of Service: 10/20/24 Procedure(s): CT abdomen pelvis wo con Accession Number(s): [id number] cc: Tono Brady MD; Joellen Shepherd APN; Liv Morin DO~ Non-contrast CT scan of the Abdomen and Pelvis Clinical indication: Abdominal pain Technique: 2.5 mm axial scans were obtained through the abdomen and pelvis without intravenous or oral contrast. Dose reduction technique was used on this scan by utilizing automated exposure control and iterative reconstruction technique. The dose-length product (DLP) was 294.88 mGy-cm. Findings: Images through the lung bases reveal no abnormalities. 2 mm nonobstructing left renal stone present. No right renal or right ureteral stone. Left ureteral stone. No hydronephrosis on either side. The liver, spleen, pancreas, and adrenals appear normal. Presumed hyperdense gallbladder sludge with diffuse gallbladder wall thickening. There is no aortic aneurysm. There is no evidence of bowel obstruction. Images through the pelvis were performed. There is no evidence of ascites or lymphadenopathy. There is air in urinary bladder. No pelvic mass evident. No ascites. Impression: Probable gallbladder sludge and diffuse gallbladder wall thickening/edematous change. Correlate for acute cholecystitis. Consider ultrasound and/or HIDA scan for further evaluation. Air in urinary bladder, which may be iatrogenic. Correlate clinically. 2 mm nonobstructing left renal stone. Reviewed, dictated and finalized at location .
[2024-10-22] VITALS (14 sets, daily range): BP systolic 106–137; BP diastolic 61–76; PULSE 63–85; RESP 16–20; TEMP 36.3–37; O2SAT 96–99
[2024-10-22] MEDS: metroNIDAZOLE 500 MG/ISO 100ML 500 MG/100 ML BAG 100 MG IVPB ×3 (02:20→17:06)
[2024-10-22] MEDS: oxyCODONE/ACETAMINOPHEN (*CRX) 5-325 MG TABLET 1 TABLET PO ×2 (02:20→19:58)
[2024-10-22] MEDS: DICYCLOMINE HCL 10 MG CAPSULE 20 MG PO ×2 (02:21→19:58)
[2024-10-22] MEDS: methylPREDNISolone SOD SUCC 125 MG VIAL IV PUSH (03:21)
[2024-10-22] MEDS: diphenhydrAMINE HCl INJ 50 MG/ML VIAL IV PUSH (03:21)
[2024-10-22 04:30] LABS: Basophils Percent Auto 0.2 % (0.2-1.2); Eosinophils Percent Auto 0.2 % (0-4.4); Hematocrit 28.2 % (37.0-47.0); Hemoglobin 9.4 g/dL (12.0-15.0); Immature Granulocyte Absolute 0.12 K/mm3 (0.00-0.031); Immature Granulocyte Percent A 0.7 % (0-0.5); Lymphocytes Absolute Auto 1.09 K/mm3 (0.9-3.2); Mean Corpuscular HGB Conc 33.3 g/dl (32-36); Mean Corpuscular Hemoglobin 31.3 pg (26-34); Mean Platelet Volume 11.7 fl (7.4-10.4); Monocytes Absolute Auto 1.7 K/mm3 (0.1-0.6); Monocytes Percent Auto 9.7 % (2.6-8.5); Neutrophils Percent Auto 83.2 % (45.5-73.1); Platelet Count Result 162 k/mm3 (150-375); Red Cell Distribution Width 12.8 % (11.5-14.5)
[2024-10-22 04:54] LABS: Alanine Aminotransferase 14 U/L (6-35); Albumin Level 2.7 g/dL (3.5-5.1); Alkaline Phosphatase 65 U/L (38-126); Anion Gap 7 mmol/L (4-12); Aspartate Amino Transferase 19 U/L (14-36); Bilirubin,Total 0.7 mg/dL (0.2-1.3); Blood Urea Nitrogen 28 mg/dL (7-17); Calcium 7.6 mg/dL (8.4-10.2); Carbon Dioxide 25 mmol/L (22-30); Chloride 95 mmol/L (98-107); Estimated CRCL calculation 35 ml/min; Estimated Glomerular Filt Rate 34; Glucose 133 mg/dL (65-110); Potassium 3.5 mmol/L (3.4-5.0); Sodium 127 mmol/L (137-145)
[2024-10-22] MEDS: cloNIDine HCL 0.1 MG TABLET PO ×2 (10:14→20:00)
[2024-10-22] MEDS: FOLIC ACID 1 MG/0.2 ML INJ IV PUSH (10:15)
[2024-10-22] MEDS: ASPIRIN 81 MG ENTERIC TABLET PO (10:15)
[2024-10-22] MEDS: THIAMINE HCL INJ 300 MG in SODIUM CHLORIDE 0.9% IV 100 ML 206 MG IVPB (10:15)
--- NOTE | 2024-10-22 10:27 | P.PNIM_ITS ---
Progress Note: A&P Assessment and Plan (1) Substance abuse: Code(s): F19.10 - Other psychoactive substance abuse, uncomplicated Status: Acute (2) Uncontrolled hypertension: Code(s): I10 - Essential (primary) hypertension Status: Acute (3) NSTEMI (non-ST elevated myocardial infarction): Code(s): I21.4 - Non-ST elevation (NSTEMI) myocardial infarction Status: Acute (4) Acute hypokalemia: Code(s): E87.6 - Hypokalemia Status: Acute (5) Alcohol abuse: Code(s): F10.10 - Alcohol abuse, uncomplicated Status: Acute (6) Cholecystitis: Code(s): K81.9 - Cholecystitis, unspecified Status: Acute Plan Substance abuse CIWA and COWS score Started Librium and oxycodone 5mg PO q 6 hrs for pain. Thiamine and folic acid Lorazepam 2 mg q.4 hours p.r.n. for seizure Hydroxyzine 25 mg p.o. q.6 hours p.r.n. for anxiety Bentyl 20 mg p.o. q.6 hours p.r.n. for abdominal discomfort Hold Methocarbamol 500 mg p.o. q.6 hours p.r.n. for muscle spasm Hold Catapres 0.1 mg p.o. q.12 hours for HTN due to lower blood pressure Hold if BP less than 90/60 Monitor development of withdrawal symptoms Monitor LFTs Order ultrasound abdomen Hypoglycemic med protocol CBC and CMP including Mag and phos AST ALT Hepatitis panel, HIV Alcohol level Reviewed UDS results -positive Amphetamine Troponin elevation As per Cardiology -most likely as a result of her uncontrolled hypertension as well as the positive urine drug screen for methamphetamine -echocardiogram review normal biventricular systolic function with severe left ventricular hypertrophy HTN Patient was previously in ICU for Nitro drip Hold Lisinopril 40mg PO QD, Clonidine 0.1mg PO BID, Coreg 12.5 mg PO BID,Amlodipine 10mg PO QD. Cholecystitis US Abd:1. Distended gallbladder with sludge. Severe gallbladder wall thickening may be seen with chronic liver disease or chronic cholecystitis. No sonographic Fernando's sign to suggest acute cholecystitis. If there is clinical concern for acute cholecystitis, consider hepatobiliary scintigraphy. CT Abd/Pelvis:Probable gallbladder sludge and diffuse gallbladder wall thickening/edematous change. Correlate for acute cholecystitis. Consider ultrasound and/or HIDA scan for further evaluation.Air in urinary bladder, which may be iatrogenic. Correlate clinically.2 mm nonobstructing left renal stone. Discontinue ceftriaxone and added metronidazole Ordered cefepime Ordered repeat blood cultures Order HIDA scan, Blood culture, lactic acid Surgery consulted and appreciated recommendation Subjective Date/time seen: 10/22/24 10:27 Interval history: Patient WBC has been increased from 14.9-18. Discontinued ceftriaxone and started cefepime and continuing metronidazole. Started NS at 125 mL/hr. Ordered lactic acid. Holding blood pressure medications. Review of Systems Review of Systems: All systems reviewed & are unremarkable except as noted in HPI and below ROS unobtainable: Yes unobtainable due to medical condition and unobtainable due to mental status Exam Narrative: General: Pt is drowsy, sleeping and in NAD Lungs/Chest: Trachea central Clear BS B/L, No crackles or wheezing. Cardiac: RRR. Normal S1 S2. No murmurs Circulation: Pedal pulses are intact and symmetrical. Abdomen: Normal bowel sounds.. Soft. NT. ND. Extremities: No clubbing, cyanosis or edema. Warm : Daniel in place Neurologic: Drowsy, falls asleep easily, wakes up on stimulation, follows commands with all 4 extremities PERRL Skin: No Rash Objective Data Vital Signs Vital Signs: Vital Signs - 24 hr 10/21/24 11:44 10/21/24 12:00 10/21/24 14:00 Temperature 98.9 F Pulse Rate 71 72 65 Respiratory Rate 18 Blood Pressure 143/64 H Pulse Oximetry 100 10/21/24 15:25 10/21/24 15:57 10/21/24 16:00 Temperature 102.5 F H 102 F H Pulse Rate 76 77 Respiratory Rate 18 Blood Pressure 129/49 L Pulse Oximetry 97 10/21/24 20:00 10/21/24 20:00 10/21/24 20:00 Temperature 98.4 F Pulse Rate 67 67 Respiratory Rate 16 Blood Pressure 119/52 L 119/52 L Pulse Oximetry 98 10/21/24 22:00 10/22/24 00:00 10/22/24 00:00 Temperature 97.6 F Pulse Rate 67 85 Respiratory Rate 18 Blood Pressure 130/76 130/76 Pulse Oximetry 99 10/22/24 00:00 10/22/24 02:00 10/22/24 04:00 Temperature 97.9 F Pulse Rate 79 79 63 Respiratory Rate 16 Blood Pressure 120/61 Pulse Oximetry 99 10/22/24 04:00 10/22/24 04:00 10/22/24 06:00 Temperature Pulse Rate 63 63 Respiratory Rate Blood Pressure 130/76 Pulse Oximetry 10/22/24 07:54 Temperature 98.4 F Pulse Rate 70 Respiratory Rate 16 Blood Pressure 106/69 Pulse Oximetry 96 Intake/Output Intake/Output: Intake & Output 10/19/24 10/20/24 10/21/24 10/22/24 23:59 23:59 23:59 23:59 Intake Total 1091.2 1843 1093 240 Output Total 875 1451 700 Balance 216.2 392 393 240 Meds/Results Medications: Active Medications Generic Name Dose Route Start Last Admin Trade Name Freq PRN Reason Stop Dose Admin Acetaminophen 650 mg 10/19/24 00:31 10/21/24 15:57 Acetaminophen 325 Mg Tablet PO 650 mg Q4H PRN Administration Mild Pain (1-3) or Fever Al Hydrox/Mg Hydrox/Simethicone 30 ml 10/19/24 17:51 10/21/24 14:06 Mag Hydrox/Al Hydrox/Simeth 30 Ml Udc PO 30 ml Q6H PRN Administration Indigestion Amlodipine Besylate 10 mg 10/20/24 12:10 10/21/24 09:55 Amlodipine Besylate 10 Mg Tablet PO 10 mg DAILY NIXON Administration Aspirin 81 mg 10/19/24 09:00 10/22/24 10:15 Aspirin 81 Mg Enteric Tablet PO 81 mg QAM NIXON Administration Carvedilol 12.5 mg 10/20/24 21:00 10/21/24 09:54 Carvedilol 12.5 Mg Tablet PO 12.5 mg Q12HR NIXON Administration Chlordiazepoxide HCl 25 mg 10/20/24 09:09 10/21/24 06:02 Chlordiazepoxide (*Crx) 25 Mg Capsule PO 25 mg Q6H PRN Administration Withdrawal Clonidine HCl 0.1 mg 10/20/24 09:00 10/22/24 10:14 Clonidine Hcl 0.1 Mg Tablet PO 0.1 mg Q12HR NIXON Administration Dicyclomine HCl 20 mg 10/20/24 08:44 10/22/24 02:21 Dicyclomine Hcl 10 Mg Capsule PO 20 mg QID PRN Administration Abdominal Cramping Folic Acid 1 mg 10/19/24 09:00 10/22/24 10:15 Folic Acid 1 Mg/0.2 Ml Inj IV PUSH 1 mg QAM NIXON Administration Hydralazine HCl 20 mg 10/19/24 08:20 Hydralazine Hcl 20 Mg/Ml Vial IV PUSH Q4H PRN SBP more than 180 Hydroxyzine HCl 25 mg 10/20/24 12:45 Hydroxyzine Hcl 50 Mg/Ml Vial IM Q4H PRN Anxiety Thiamine HCl 300 mg/ Sodium 103 mls @ 206 mls/hr 10/19/24 09:00 10/22/24 10:15 Chloride IVPB 206 mls/hr DAILY NIXON Administration Metronidazole 500 mg in 100 mls @ 100 mls/hr 10/21/24 10:00 10/22/24 02:20 Flagyl 500 Mg/Iso Soln 100 Ml IVPB 100 mls/hr Q8H NIXON Administration Cefepime HCl 2 gm in 50 mls @ 100 mls/hr 10/22/24 11:00 Maxipime 2 Gm/Ns 50 Ml IVPB Q12H NIXON Sodium Chloride 1,000 mls @ 125 mls/hr 10/22/24 10:20 Normal Saline Iv IV CONT .Q8H NIXON Labetalol HCl 10 mg 10/19/24 14:15 10/20/24 06:30 Labetalol Hcl Inj 100 Mg/20 Ml Vial IV PUSH 10 mg Q4H PRN Administration SBP > 180 -1st choce Lactulose 20 gm 10/21/24 09:40 10/22/24 10:16 Lactulose 20 Gm/30 Ml Udc PO Not Given QAM NIOXN Lisinopril 40 mg 10/19/24 09:00 10/21/24 09:54 Lisinopril 20 Mg Tablet PO 40 mg QAM NIXON Administration Lorazepam 2 mg 10/20/24 12:44 Lorazepam Inj (*Crx) 2 Mg/Ml Vial IV PUSH Q6H PRN Seizures Ondansetron HCl 4 mg 10/18/24 21:09 10/21/24 14:06 Ondansetron Inj 4 Mg/2 Ml Vial IV PUSH 4 mg Q4H PRN Administration Nausea Oxycodone/Acetaminophen 1 tablet 10/20/24 09:09 10/22/24 02:20 Oxycodone/Acetaminophen (*Crx) 5-325 Mg Tablet PO 1 tablet Q4H PRN Administration Pain Rated 7-10 Polyethylene Glycol 17 gm 10/21/24 04:00 10/22/24 09:38 Polyethylene Glycol 3350 17 Gm Powd.Pack PO Not Given Q8HR NIXON Senna/Docusate Sodium 1 tab 10/20/24 21:00 10/21/24 21:44 Senna/Docusate Sodium Tablet PO Not Given HS NIXON Radiology Results: ITS Impressions Forearm X-Ray 10/18/24 16:37 IMPRESSION: No acute fracture or dislocation Chest X-Ray 10/18/24 21:11 IMPRESSION: 1. No acute cardiopulmonary disease. Head CT 10/19/24 05:45 Impression: No significant abnormality seen. Abdomen X-Ray 10/19/24 18:14 IMPRESSION: NO ACUTE ABDOMINAL FINDINGS. Abdomen/Pelvis CT 10/21/24 05:24 Impression: Probable gallbladder sludge and diffuse gallbladder wall thickening/edematous change. Correlate for acute cholecystitis. Consider ultrasound and/or HIDA scan for further evaluation. Air in urinary bladder, which may be iatrogenic. Correlate clinically. 2 mm nonobstructing left renal stone. Upper Quadrant Ultrasound 10/21/24 08:18 IMPRESSION: 1. Distended gallbladder with sludge. Severe gallbladder wall thickening may be seen with chronic liver disease or chronic cholecystitis. No sonographic Fernando's sign to suggest acute cholecystitis. If there is clinical concern for acute cholecystitis, consider hepatobiliary scintigraphy. Head/Neck CTA 10/22/24 06:50 Impression: No significant abnormality. Labs Labs: Laboratory Results - last 24 hr 10/21/24 10/22/24 16:25 04:11 WBC 18.0 H RBC 3.00 L Hgb 9.4 L Hct 28.2 L MCV 94.0 MCH 31.3 MCHC 33.3 RDW 12.8 Plt Count 162 MPV 11.7 H Immature Gran % (Auto) 0.7 H Neut % (Auto) 83.2 H Lymph % (Auto) 6.0 L Garrard % (Auto) 9.7 H Eos % (Auto) 0.2 Baso % (Auto) 0.2 Lymph # (Auto) 1.09 Garrard # (Auto) 1.7 H Eos # (Auto) 0.0 Baso # (Auto) 0.0 Abs Immat Gran (auto) 0.12 H Absolute Neuts (auto) 15.0 H Absolute Nucleated RBC 0.000 Nucleated RBC % 0.0 Sodium 127 L Potassium 3.5 Chloride 95 L Carbon Dioxide 25 Anion Gap 7 BUN 28 H D Creatinine 1.61 H Estim Creat Clear Calc 35 Estimated GFR 34 L Glucose 133 H Lactic Acid 1.5 Calcium 7.6 L Magnesium 2.0 Total Bilirubin 0.7 AST 19 ALT 14 Alkaline Phosphatase 65 Total Protein 5.0 L Albumin 2.7 L Hospitalist MIPS Advance Care Plan I have confirmed that the patient's Advanced Care Plan is present, code status is documented, or surrogate decision maker is listed in patient medical record.: Yes Medication Reconciliation I have utilized all available resources to obtain, update and review the patients current medications (includes all prescriptions, OTC, herbals, cannabis, and nutritional supplements).: Yes
[2024-10-22] MEDS: CEFEPIME 2 GM/NS 50 ML 2 GM/50 ML BAG IVPB ×2 (10:32→22:39)
[2024-10-22] MEDS: SODIUM CHLORIDE 0.9% IV 1,000 ML 125 ML IV CONT ×2 (10:34→20:01)
[2024-10-22 10:54] LABS: Lactic Acid Reflex 1.9 mmol/L (0.7-2.0)
[2024-10-22] MEDS: methocarbamoL 500 MG TABLET PO (13:29)
[2024-10-22] MEDS: chlordiazePOXIDE (*CRX) 25 MG CAPSULE PO ×2 (13:31→19:58)
--- NOTE | 2024-10-22 18:41 | WPDPN ---
Progress Note: A&P Assessment and Plan (1) Cholecystitis: Code(s): K81.9 - Cholecystitis, unspecified Status: Acute Assessment and Plan: Continue IV antibiotics. Continue on clear liquids. Close monitoring for now. Recommend percutaneous image guided cholecystostomy tube placement Thursday. Subjective Date/time seen: 10/22/24 18:41 Interval history: Patient had right upper quadrant pain. White blood count elevated to 18,000 today. No tachycardia. No hypotension. Liver enzymes also normal. Exam GI: Other: Right upper quadrant mildly tender to palpation no generalized peritoneal signs. Objective Data Vital Signs Vital Signs: Vital Signs - 24 hr 10/21/24 20:00 10/21/24 20:00 10/21/24 20:00 Temperature 36.9 C Pulse Rate 67 67 Respiratory Rate 16 Blood Pressure 119/52 L 119/52 L Pulse Oximetry 98 Oxygen Delivery 10/21/24 22:00 10/22/24 00:00 10/22/24 00:00 Temperature 36.4 C Pulse Rate 67 85 Respiratory Rate 18 Blood Pressure 130/76 130/76 Pulse Oximetry 99 Oxygen Delivery 10/22/24 00:00 10/22/24 02:00 10/22/24 04:00 Temperature 36.6 C Pulse Rate 79 79 63 Respiratory Rate 16 Blood Pressure 120/61 Pulse Oximetry 99 Oxygen Delivery 10/22/24 04:00 10/22/24 04:00 10/22/24 06:00 Temperature Pulse Rate 63 63 Respiratory Rate Blood Pressure 130/76 Pulse Oximetry Oxygen Delivery 10/22/24 07:54 10/22/24 08:00 10/22/24 08:00 Temperature 36.9 C Pulse Rate 70 69 Respiratory Rate 16 Blood Pressure 106/69 Pulse Oximetry 96 96 Oxygen Delivery Room Air 10/22/24 10:00 10/22/24 11:55 10/22/24 12:00 Temperature 36.9 C Pulse Rate 63 66 Respiratory Rate 18 Blood Pressure 133/74 Pulse Oximetry 98 98 Oxygen Delivery Room Air 10/22/24 12:00 10/22/24 14:00 10/22/24 16:00 Temperature 37.0 C Pulse Rate 68 75 69 Respiratory Rate 20 Blood Pressure 137/68 Pulse Oximetry 96 Oxygen Delivery 10/22/24 16:00 10/22/24 16:00 10/22/24 18:00 Temperature Pulse Rate 66 77 Respiratory Rate Blood Pressure Pulse Oximetry 96 Oxygen Delivery Room Air Intake/Output Intake/Output: Intake & Output 10/19/24 10/20/24 10/21/24 10/22/24 23:59 23:59 23:59 23:59 Intake Total 1091.2 1843 1093 920 Output Total 875 1451 700 Balance 216.2 392 393 920 Meds/Results Medications: Active Medications Generic Name Dose Route Start Last Admin Trade Name Freq PRN Reason Stop Dose Admin Acetaminophen 650 mg 10/19/24 00:31 10/21/24 15:57 Acetaminophen 325 Mg Tablet PO 650 mg Q4H PRN Administration Mild Pain (1-3) or Fever Al Hydrox/Mg Hydrox/Simethicone 30 ml 10/19/24 17:51 10/21/24 14:06 Mag Hydrox/Al Hydrox/Simeth 30 Ml Udc PO 30 ml Q6H PRN Administration Indigestion Amlodipine Besylate 10 mg 10/20/24 12:10 10/21/24 09:55 Amlodipine Besylate 10 Mg Tablet PO 10 mg DAILY NIXON Administration Aspirin 81 mg 10/19/24 09:00 10/22/24 10:15 Aspirin 81 Mg Enteric Tablet PO 81 mg QAM NIXON Administration Carvedilol 12.5 mg 10/20/24 21:00 10/21/24 09:54 Carvedilol 12.5 Mg Tablet PO 12.5 mg Q12HR NIXON Administration Chlordiazepoxide HCl 25 mg 10/20/24 09:09 10/22/24 13:31 Chlordiazepoxide (*Crx) 25 Mg Capsule PO 25 mg Q6H PRN Administration Withdrawal Clonidine HCl 0.1 mg 10/20/24 09:00 10/22/24 10:14 Clonidine Hcl 0.1 Mg Tablet PO 0.1 mg Q12HR NIXON Administration Dicyclomine HCl 20 mg 10/20/24 08:44 10/22/24 02:21 Dicyclomine Hcl 10 Mg Capsule PO 20 mg QID PRN Administration Abdominal Cramping Folic Acid 1 mg 10/19/24 09:00 10/22/24 10:15 Folic Acid 1 Mg/0.2 Ml Inj IV PUSH 1 mg QAM NIXON Administration Hydralazine HCl 20 mg 10/19/24 08:20 Hydralazine Hcl 20 Mg/Ml Vial IV PUSH Q4H PRN SBP more than 180 Hydroxyzine HCl 25 mg 10/20/24 12:45 Hydroxyzine Hcl 50 Mg/Ml Vial IM Q4H PRN Anxiety Thiamine HCl 300 mg/ Sodium 103 mls @ 206 mls/hr 10/19/24 09:00 10/22/24 10:15 Chloride IVPB 206 mls/hr DAILY NIXON Administration Metronidazole 500 mg in 100 mls @ 100 mls/hr 10/21/24 10:00 10/22/24 17:06 Flagyl 500 Mg/Iso Soln 100 Ml IVPB 100 mls/hr Q8H NIXON Administration Cefepime HCl 2 gm in 50 mls @ 100 mls/hr 10/22/24 11:00 10/22/24 10:32 Maxipime 2 Gm/Ns 50 Ml IVPB 100 mls/hr Q12H [facility] Administration Sodium Chloride 1,000 mls @ 125 mls/hr 10/22/24 10:20 10/22/24 10:34 Normal Saline Iv IV CONT 125 mls/hr .Q8H NIXON Administration Labetalol HCl 10 mg 10/19/24 14:15 10/20/24 06:30 Labetalol Hcl Inj 100 Mg/20 Ml Vial IV PUSH 10 mg Q4H PRN Administration SBP > 180 -1st choce Lactulose 20 gm 10/21/24 09:40 10/22/24 10:16 Lactulose 20 Gm/30 Ml Udc PO Not Given QAM NIXON Lisinopril 40 mg 10/19/24 09:00 10/21/24 09:54 Lisinopril 20 Mg Tablet PO 40 mg QAM NIXON Administration Lorazepam 2 mg 10/20/24 12:44 Lorazepam Inj (*Crx) 2 Mg/Ml Vial IV PUSH Q6H PRN Seizures Ondansetron HCl 4 mg 10/18/24 21:09 10/21/24 14:06 Ondansetron Inj 4 Mg/2 Ml Vial IV PUSH 4 mg Q4H PRN Administration Nausea Oxycodone/Acetaminophen 1 tablet 10/20/24 09:09 10/22/24 02:20 Oxycodone/Acetaminophen (*Crx) 5-325 Mg Tablet PO 1 tablet Q4H PRN Administration Pain Rated 7-10 Polyethylene Glycol 17 gm 10/21/24 04:00 10/22/24 13:29 Polyethylene Glycol 3350 17 Gm Powd.Pack PO Not Given Q8HR NIXON Senna/Docusate Sodium 1 tab 10/20/24 21:00 10/21/24 21:44 Senna/Docusate Sodium Tablet PO Not Given HS NIXON Radiology Results: ITS Impressions Forearm X-Ray 10/18/24 16:37 IMPRESSION: No acute fracture or dislocation Chest X-Ray 10/18/24 21:11 IMPRESSION: 1. No acute cardiopulmonary disease. Head CT 10/19/24 05:45 Impression: No significant abnormality seen. Abdomen X-Ray 10/19/24 18:14 IMPRESSION: NO ACUTE ABDOMINAL FINDINGS. Abdomen/Pelvis CT 10/21/24 05:24 Impression: Probable gallbladder sludge and diffuse gallbladder wall thickening/edematous change. Correlate for acute cholecystitis. Consider ultrasound and/or HIDA scan for further evaluation. Air in urinary bladder, which may be iatrogenic. Correlate clinically. 2 mm nonobstructing left renal stone. Upper Quadrant Ultrasound 10/21/24 08:18 IMPRESSION: 1. Distended gallbladder with sludge. Severe gallbladder wall thickening may be seen with chronic liver disease or chronic cholecystitis. No sonographic Fernando's sign to suggest acute cholecystitis. If there is clinical concern for acute cholecystitis, consider hepatobiliary scintigraphy. Head/Neck CTA 10/22/24 06:50 Impression: No significant abnormality. Labs Labs: Laboratory Results - last 24 hr 10/22/24 10/22/24 04:11 10:31 WBC 18.0 H RBC 3.00 L Hgb 9.4 L Hct 28.2 L MCV 94.0 MCH 31.3 MCHC 33.3 RDW 12.8 Plt Count 162 MPV 11.7 H Immature Gran % (Auto) 0.7 H Neut % (Auto) 83.2 H Lymph % (Auto) 6.0 L [place] % (Auto) 9.7 H Eos % (Auto) 0.2 Baso % (Auto) 0.2 Lymph # (Auto) 1.09 [place] # (Auto) 1.7 H Eos # (Auto) 0.0 Baso # (Auto) 0.0 Abs Immat Gran (auto) 0.12 H Absolute Neuts (auto) 15.0 H Absolute Nucleated RBC 0.000 Nucleated RBC % 0.0 Sodium 127 L Potassium 3.5 Chloride 95 L Carbon Dioxide 25 Anion Gap 7 BUN 28 H D Creatinine 1.61 H Estim Creat Clear Calc 35 Estimated GFR 34 L Glucose 133 H Lactic Acid 1.9 Calcium 7.6 L Magnesium 2.0 Total Bilirubin 0.7 AST 19 ALT 14 Alkaline Phosphatase 65 Total Protein 5.0 L Albumin 2.7 L
[2024-10-22] MEDS: hydrOXYzine HCl 50 MG/ML VIAL 25 MG IM (22:49)
[2024-10-22] MEDS: ACETAMINOPHEN 325 MG TABLET 650 MG PO (22:49)
[2024-10-22] MEDS: NICOTINE (*PBKC) 2 MG GUM PO (23:13)
[2024-10-23] VITALS (15 sets, daily range): BP systolic 123–162; BP diastolic 55–91; PULSE 56–100; RESP 16–22; TEMP 36.5–37.1; O2SAT 96–100
[2024-10-23] MEDS: metroNIDAZOLE 500 MG/ISO 100ML 500 MG/100 ML BAG 100 MG IVPB ×3 (02:37→17:06)
[2024-10-23] MEDS: SODIUM CHLORIDE 0.9% IV 1,000 ML 125 ML IV CONT ×2 (02:38→14:24)
[2024-10-23] MEDS: hydrOXYzine HCl 50 MG/ML VIAL 25 MG IM ×3 (02:48→19:36)
[2024-10-23] MEDS: chlordiazePOXIDE (*CRX) 25 MG CAPSULE PO ×4 (02:48→21:55)
[2024-10-23 04:29] LABS: Basophils Percent Auto 0.2 % (0.2-1.2); Hematocrit 30.5 % (37.0-47.0); Hemoglobin 10.1 g/dL (12.0-15.0); Immature Granulocyte Absolute 0.19 K/mm3 (0.00-0.031); Lymphocytes Absolute Auto 0.44 K/mm3 (0.9-3.2); Lymphocytes Percent Auto 2.2 % (18.3-44.2); Mean Corpuscular HGB Conc 33.1 g/dl (32-36); Mean Corpuscular Hemoglobin 31.1 pg (26-34); Mean Corpuscular Volume 93.8 fl (80-100); Mean Platelet Volume 12.3 fl (7.4-10.4); Monocytes Absolute Auto 0.8 K/mm3 (0.1-0.6); Neutrophils Absolute Auto 18.3 K/mm3 (1.3-6.7); Neutrophils Percent Auto 92.6 % (45.5-73.1); Platelet Count Result 208 k/mm3 (150-375); Red Blood Count 3.25 M/mm3 (4.2-5.4); Red Cell Distribution Width 12.6 % (11.5-14.5); White Blood Count 19.8 K/mm3 (4.5-10.0)
[2024-10-23 04:40] LABS: Alanine Aminotransferase 20 U/L (6-35); Albumin Level 3.3 g/dL (3.5-5.1); Alkaline Phosphatase 76 U/L (38-126); Anion Gap 8 mmol/L (4-12); Aspartate Amino Transferase 36 U/L (14-36); Bilirubin,Total 0.5 mg/dL (0.2-1.3); Blood Urea Nitrogen 29 mg/dL (7-17); Calcium 8.6 mg/dL (8.4-10.2); Carbon Dioxide 25 mmol/L (22-30); Chloride 103 mmol/L (98-107); Estimated CRCL calculation 57 ml/min; Estimated Glomerular Filt Rate > 60; Glucose 126 mg/dL (65-110); Magnesium 2.4 mg/dL (1.6-2.3); Potassium 4.2 mmol/L (3.4-5.0); Sodium 136 mmol/L (137-145)
[2024-10-23] MEDS: polyethylene glycoL 3350 17 GM POWD.PACK PO ×3 (06:24→21:08)
--- NOTE | 2024-10-23 08:55 | P.PNIM_ITS ---
Progress Note: A&P Assessment and Plan (1) Substance abuse: Code(s): F19.10 - Other psychoactive substance abuse, uncomplicated Status: Acute (2) Uncontrolled hypertension: Code(s): I10 - Essential (primary) hypertension Status: Acute (3) NSTEMI (non-ST elevated myocardial infarction): Code(s): I21.4 - Non-ST elevation (NSTEMI) myocardial infarction Status: Acute (4) Acute hypokalemia: Code(s): E87.6 - Hypokalemia Status: Acute (5) Alcohol abuse: Code(s): F10.10 - Alcohol abuse, uncomplicated Status: Acute (6) Cholecystitis: Code(s): K81.9 - Cholecystitis, unspecified Status: Acute Plan Substance abuse CIWA and COWS score Started Librium and oxycodone 5mg PO q 6 hrs for pain. Thiamine and folic acid Lorazepam 2 mg q.4 hours p.r.n. for seizure Hydroxyzine 25 mg p.o. q.6 hours p.r.n. for anxiety Bentyl 20 mg p.o. q.6 hours p.r.n. for abdominal discomfort Hold Methocarbamol 500 mg p.o. q.6 hours p.r.n. for muscle spasm Hold Catapres 0.1 mg p.o. q.12 hours for HTN due to lower blood pressure Hold if BP less than 90/60 Monitor development of withdrawal symptoms Monitor LFTs Order ultrasound abdomen Hypoglycemic med protocol CBC and CMP including Mag and phos AST ALT Hepatitis panel, HIV Alcohol level Reviewed UDS results -positive Amphetamine Troponin elevation As per Cardiology -most likely as a result of her uncontrolled hypertension as well as the positive urine drug screen for methamphetamine -echocardiogram review normal biventricular systolic function with severe left ventricular hypertrophy HTN Patient was previously in ICU for Nitro drip Hold Lisinopril 40mg PO QD, Clonidine 0.1mg PO BID, Coreg 12.5 mg PO BID,Amlodipine 10mg PO QD. Cholecystitis US Abd:1. Distended gallbladder with sludge. Severe gallbladder wall thickening may be seen with chronic liver disease or chronic cholecystitis. No sonographic Fernando's sign to suggest acute cholecystitis. If there is clinical concern for acute cholecystitis, consider hepatobiliary scintigraphy. CT Abd/Pelvis:Probable gallbladder sludge and diffuse gallbladder wall thickening/edematous change. Correlate for acute cholecystitis. Consider ultrasound and/or HIDA scan for further evaluation.Air in urinary bladder, which may be iatrogenic. Correlate clinically.2 mm nonobstructing left renal stone. Discontinue ceftriaxone and added metronidazole Ordered cefepime Ordered repeat blood cultures Order HIDA scan, Blood culture, lactic acid Surgery consulted and appreciated recommendation As per surgery percutaneous image guided cholecystostomy tube placement on Thursday. Subjective Date/time seen: 10/23/24 08:55 Interval history: WBC increased from 18 to 19.8. BC negative. LFTs are normal. Continue fluids,Cefepime and metronidazole.As per surgery percutaneous image guided cholecystostomy tube placement on Thursday. Review of Systems Review of Systems: All systems reviewed & are unremarkable except as noted in HPI and below ROS unobtainable: Yes unobtainable due to medical condition and unobtainable due to mental status Exam Narrative: General: Pt is drowsy, sleeping and in NAD Lungs/Chest: Trachea central Clear BS B/L, No crackles or wheezing. Cardiac: RRR. Normal S1 S2. No murmurs Circulation: Pedal pulses are intact and symmetrical. Abdomen: Normal bowel sounds.. Soft. NT. ND. Extremities: No clubbing, cyanosis or edema. Warm : Daniel in place Neurologic: Drowsy, falls asleep easily, wakes up on stimulation, follows commands with all 4 extremities PERRL Skin: No Rash Objective Data Vital Signs Vital Signs: Vital Signs - 24 hr 10/22/24 10:00 10/22/24 11:55 10/22/24 12:00 Temperature 98.5 F Pulse Rate 63 66 Respiratory Rate 18 Blood Pressure 133/74 Pulse Oximetry 98 98 Oxygen Delivery Room Air 10/22/24 12:00 10/22/24 14:00 10/22/24 16:00 Temperature 98.6 F Pulse Rate 68 75 69 Respiratory Rate 20 Blood Pressure 137/68 Pulse Oximetry 96 Oxygen Delivery 10/22/24 16:00 10/22/24 16:00 10/22/24 18:00 Temperature Pulse Rate 66 77 Respiratory Rate Blood Pressure Pulse Oximetry 96 Oxygen Delivery Room Air 10/22/24 20:00 10/22/24 20:00 10/22/24 20:00 Temperature 97.4 F L Pulse Rate 78 Respiratory Rate 16 Blood Pressure 134/64 134/64 Pulse Oximetry 97 97 Oxygen Delivery Room Air 10/22/24 20:00 10/22/24 22:00 10/23/24 00:00 Temperature 98.4 F Pulse Rate 79 66 60 Respiratory Rate 17 Blood Pressure 126/89 Pulse Oximetry 100 Oxygen Delivery 10/23/24 00:00 10/23/24 00:00 10/23/24 00:00 Temperature Pulse Rate 68 Respiratory Rate Blood Pressure 126/89 Pulse Oximetry 100 Oxygen Delivery Room Air 10/23/24 02:00 10/23/24 04:00 10/23/24 04:00 Temperature 98.4 F Pulse Rate 77 66 Respiratory Rate 16 Blood Pressure 129/55 L Pulse Oximetry 100 99 Oxygen Delivery Room Air 10/23/24 04:00 10/23/24 06:00 10/23/24 08:13 Temperature 97.7 F Pulse Rate 76 65 65 Respiratory Rate 18 Blood Pressure 123/65 Pulse Oximetry 96 Oxygen Delivery Intake/Output Intake/Output: Intake & Output 10/20/24 10/21/24 10/22/24 10/23/24 23:59 23:59 23:59 23:59 Intake Total 1843 1093 2270 1577.1 Output Total 1451 700 Balance 902 115 4119 1577.1 Meds/Results Medications: Active Medications Generic Name Dose Route Start Last Admin Trade Name Freq PRN Reason Stop Dose Admin Acetaminophen 650 mg 10/19/24 00:31 10/22/24 22:49 Acetaminophen 325 Mg Tablet PO 650 mg Q4H PRN Administration Mild Pain (1-3) or Fever Al Hydrox/Mg Hydrox/Simethicone 30 ml 10/19/24 17:51 10/21/24 14:06 Mag Hydrox/Al Hydrox/Simeth 30 Ml Udc PO 30 ml Q6H PRN Administration Indigestion Amlodipine Besylate 10 mg 10/20/24 12:10 10/21/24 09:55 Amlodipine Besylate 10 Mg Tablet PO 10 mg DAILY NIXON Administration Aspirin 81 mg 10/19/24 09:00 10/22/24 10:15 Aspirin 81 Mg Enteric Tablet PO 81 mg QAM NIXON Administration Carvedilol 12.5 mg 10/20/24 21:00 10/21/24 09:54 Carvedilol 12.5 Mg Tablet PO 12.5 mg Q12HR NIXON Administration Chlordiazepoxide HCl 25 mg 10/20/24 09:09 10/23/24 02:48 Chlordiazepoxide (*Crx) 25 Mg Capsule PO 25 mg Q6H PRN Administration Withdrawal Clonidine HCl 0.1 mg 10/20/24 09:00 10/22/24 20:00 Clonidine Hcl 0.1 Mg Tablet PO 0.1 mg Q12HR NIXON Administration Dicyclomine HCl 20 mg 10/20/24 08:44 10/22/24 19:58 Dicyclomine Hcl 10 Mg Capsule PO 20 mg QID PRN Administration Abdominal Cramping Folic Acid 1 mg 10/19/24 09:00 10/22/24 10:15 Folic Acid 1 Mg/0.2 Ml Inj IV PUSH 1 mg QAM NIXON Administration Hydralazine HCl 20 mg 10/19/24 08:20 Hydralazine Hcl 20 Mg/Ml Vial IV PUSH Q4H PRN SBP more than 180 Hydroxyzine HCl 25 mg 10/20/24 12:45 10/23/24 02:48 Hydroxyzine Hcl 50 Mg/Ml Vial IM 25 mg Q4H PRN Administration Anxiety Thiamine HCl 300 mg/ Sodium 103 mls @ 206 mls/hr 10/19/24 09:00 10/22/24 10:15 Chloride IVPB 206 mls/hr DAILY NIXON Administration Metronidazole 500 mg in 100 mls @ 100 mls/hr 10/21/24 10:00 10/23/24 02:37 Flagyl 500 Mg/Iso Soln 100 Ml IVPB 100 mls/hr Q8H NIXON Administration Cefepime HCl 2 gm in 50 mls @ 100 mls/hr 10/22/24 11:00 10/22/24 22:39 Maxipime 2 Gm/Ns 50 Ml IVPB 100 mls/hr Q12H NIXON Administration Sodium Chloride 1,000 mls @ 125 mls/hr 10/22/24 10:20 10/23/24 02:38 Normal Saline Iv IV CONT 125 mls/hr .Q8H NIXON Administration Labetalol HCl 10 mg 10/19/24 14:15 10/20/24 06:30 Labetalol Hcl Inj 100 Mg/20 Ml Vial IV PUSH 10 mg Q4H PRN Administration SBP > 180 -1st choce Lactulose 20 gm 10/21/24 09:40 10/22/24 10:16 Lactulose 20 Gm/30 Ml Udc [facility] 40 mg 10/19/24 09:00 10/21/24 09:54 Lisinopril 20 Mg Tablet PO 40 mg QAM [facility] Administration Lorazepam 2 mg 10/20/24 12:44 Lorazepam Inj (*Crx) 2 Mg/Ml Vial IV PUSH Q6H PRN Seizures Nicotine Polacrilex 2 mg 10/22/24 22:58 10/22/24 23:13 Nicotine (*Pbkc) 2 Mg Gum PO 2 mg PRN PRN Administration Nicotine Cravings Ondansetron HCl 4 mg 10/18/24 21:09 10/21/24 14:06 Ondansetron Inj 4 Mg/2 Ml Vial IV PUSH 4 mg Q4H PRN Administration Nausea Oxycodone/Acetaminophen 1 tablet 10/20/24 09:09 10/22/24 19:58 Oxycodone/Acetaminophen (*Crx) 5-325 Mg Tablet PO 1 tablet Q4H PRN Administration Pain Rated 7-10 Polyethylene Glycol 17 gm 10/21/24 04:00 10/23/24 06:24 Polyethylene Glycol 3350 17 Gm Powd.Pack PO 17 gm Q8HR [facility] Administration Senna/Docusate Sodium 1 tab 10/20/24 21:00 10/22/24 20:01 Senna/Docusate Sodium Tablet PO Not Given [facility] Radiology Results: ITS Impressions Forearm X-Ray 10/18/24 16:37 IMPRESSION: No acute fracture or dislocation Chest X-Ray 10/18/24 21:11 IMPRESSION: 1. No acute cardiopulmonary disease. Head CT 10/19/24 05:45 Impression: No significant abnormality seen. Abdomen X-Ray 10/19/24 18:14 IMPRESSION: NO ACUTE ABDOMINAL FINDINGS. Abdomen/Pelvis CT 10/21/24 05:24 Impression: Probable gallbladder sludge and diffuse gallbladder wall thickening/edematous change. Correlate for acute cholecystitis. Consider ultrasound and/or HIDA scan for further evaluation. Air in urinary bladder, which may be iatrogenic. Correlate clinically. 2 mm nonobstructing left renal stone. Upper Quadrant Ultrasound 10/21/24 08:18 IMPRESSION: 1. Distended gallbladder with sludge. Severe gallbladder wall thickening may be seen with chronic liver disease or chronic cholecystitis. No sonographic Fernando's sign to suggest acute cholecystitis. If there is clinical concern for acute cholecystitis, consider hepatobiliary scintigraphy. Head/Neck CTA 10/22/24 06:50 Impression: No significant abnormality. Labs Labs: Laboratory Results - last 24 hr 10/22/24 10/23/24 10:31 04:04 WBC 19.8 H RBC 3.25 L Hgb 10.1 L Hct 30.5 L MCV 93.8 MCH 31.1 MCHC 33.1 RDW 12.6 Plt Count 208 MPV 12.3 H Immature Gran % (Auto) 1.0 H Neut % (Auto) 92.6 H Lymph % (Auto) 2.2 L [place] % (Auto) 4.0 Eos % (Auto) 0.0 Baso % (Auto) 0.2 Lymph # (Auto) 0.44 L [place] # (Auto) 0.8 H Eos # (Auto) 0.0 Baso # (Auto) 0.0 Abs Immat Gran (auto) 0.19 H Absolute Neuts (auto) 18.3 H Absolute Nucleated RBC 0.000 Nucleated RBC % 0.0 Sodium 136 L Potassium 4.2 Chloride 103 Carbon Dioxide 25 Anion Gap 8 BUN 29 H Creatinine 0.95 Estim Creat Clear Calc 57 Estimated GFR > 60 Glucose 126 H Lactic Acid 1.9 Calcium 8.6 Magnesium 2.4 H Total Bilirubin 0.5 AST 36 ALT 20 Alkaline Phosphatase 76 Total Protein 6.0 L Albumin 3.3 L Quality VTE Prophylaxis VTE prophylaxis: pharmacologic ordered Hospitalist [facility] Advance Care Plan I have confirmed that the patient's Advanced Care Plan is present, code status is documented, or surrogate decision maker is listed in patient medical record.: Yes Medication Reconciliation I have utilized all available resources to obtain, update and review the patients current medications (includes all prescriptions, OTC, herbals, cannabis, and nutritional supplements).: Yes
[2024-10-23] MEDS: cloNIDine HCL 0.1 MG TABLET PO ×2 (09:52→21:05)
[2024-10-23] MEDS: FOLIC ACID 1 MG/0.2 ML INJ IV PUSH (09:52)
[2024-10-23] MEDS: ASPIRIN 81 MG ENTERIC TABLET PO (09:52)
[2024-10-23] MEDS: THIAMINE HCL INJ 300 MG in SODIUM CHLORIDE 0.9% IV 100 ML 206 MG IVPB (09:59)
[2024-10-23] MEDS: CEFEPIME 2 GM/NS 50 ML 2 GM/50 ML BAG IVPB ×2 (10:00→21:59)
--- NOTE | 2024-10-23 12:09 | WPDPN ---
Progress Note: A&P Assessment and Plan (1) Cholecystitis: Code(s): K81.9 - Cholecystitis, unspecified Status: Acute Assessment and Plan: Patient has abdominal ultrasound and CT scans of the abdomen pelvis showing edema of the gallbladder wall and dilated gallbladder with gallbladder sludge. White blood cell count has been elevated around 19,000 for the past 2 days she does have tenderness over the area the gallbladder. Think she likely does have acute cholecystitis. I have recommended that a image guided percutaneous cholecystostomy tube be placed to decompress the gallbladder for now. Hopefully she can be stabilized medically and then an interval laparoscopic cholecystectomy can be performed. Continue IV antibiotics for now. Will keep her NPO after midnight. Subjective Date/time seen: 10/23/24 12:09 Interval history: Patient was sleeping when I entered the room. She does arouse to voice and stimuli. However she does seem to fall back to sleep pretty quickly. She stated she did not have any pain and no nausea. Upon palpation or abdomen she is complaining of moderate tenderness in the right upper quadrant. Liver enzymes are still normal. White blood count still elevated around 19,000. No fever. Exam GI: Other: Abdomen is soft and mildly distended. She has some moderate tenderness to palpation over the area the gallbladder. The gallbladder is not palpable. No generalized peritoneal signs. Objective Data Vital Signs Vital Signs: Vital Signs - 24 hr 10/22/24 14:00 10/22/24 16:00 10/22/24 16:00 Temperature 37.0 C Pulse Rate 75 69 Respiratory Rate 20 Blood Pressure 137/68 Pulse Oximetry 96 96 Oxygen Delivery Room Air 10/22/24 16:00 10/22/24 18:00 10/22/24 20:00 Temperature 36.3 C L Pulse Rate 66 77 78 Respiratory Rate 16 Blood Pressure 134/64 Pulse Oximetry 97 Oxygen Delivery 10/22/24 20:00 10/22/24 20:00 10/22/24 20:00 Temperature Pulse Rate 79 Respiratory Rate Blood Pressure 134/64 Pulse Oximetry 97 Oxygen Delivery Room Air 10/22/24 22:00 10/23/24 00:00 10/23/24 00:00 Temperature 36.9 C Pulse Rate 66 60 Respiratory Rate 17 Blood Pressure 126/89 126/89 Pulse Oximetry 100 Oxygen Delivery 10/23/24 00:00 10/23/24 00:00 10/23/24 02:00 Temperature Pulse Rate 68 77 Respiratory Rate Blood Pressure Pulse Oximetry 100 Oxygen Delivery Room Air 10/23/24 04:00 10/23/24 04:00 10/23/24 04:00 Temperature 36.9 C Pulse Rate 66 76 Respiratory Rate 16 Blood Pressure 129/55 L Pulse Oximetry 100 99 Oxygen Delivery Room Air 10/23/24 06:00 10/23/24 08:00 10/23/24 08:13 Temperature 36.5 C Pulse Rate 65 65 Respiratory Rate 18 Blood Pressure 123/65 Pulse Oximetry 96 96 Oxygen Delivery Room Air Intake/Output Intake/Output: Intake & Output 10/20/24 10/21/24 10/22/24 10/23/24 23:59 23:59 23:59 23:59 Intake Total 1843 1093 2423 2127.1 Output Total 1451 700 Balance 294 362 2571 2127.1 Meds/Results Medications: Active Medications Generic Name Dose Route Start Last Admin Trade Name Freq PRN Reason Stop Dose Admin Acetaminophen 650 mg 10/19/24 00:31 10/22/24 22:49 Acetaminophen 325 Mg Tablet PO 650 mg Q4H PRN Administration Mild Pain (1-3) or Fever Al Hydrox/Mg Hydrox/Simethicone 30 ml 10/19/24 17:51 10/21/24 14:06 Mag Hydrox/Al Hydrox/Simeth 30 Ml Udc PO 30 ml Q6H PRN Administration Indigestion Amlodipine Besylate 10 mg 10/20/24 12:10 10/21/24 09:55 Amlodipine Besylate 10 Mg Tablet PO 10 mg DAILY NIXON Administration Aspirin 81 mg 10/19/24 09:00 10/23/24 09:52 Aspirin 81 Mg Enteric Tablet PO 81 mg QAM NIXON Administration Carvedilol 12.5 mg 10/20/24 21:00 10/21/24 09:54 Carvedilol 12.5 Mg Tablet PO 12.5 mg Q12HR NIXON Administration Chlordiazepoxide HCl 25 mg 10/20/24 09:09 10/23/24 09:52 Chlordiazepoxide (*Crx) 25 Mg Capsule PO 25 mg Q6H PRN Administration Withdrawal Clonidine HCl 0.1 mg 10/20/24 09:00 10/23/24 09:52 Clonidine Hcl 0.1 Mg Tablet PO 0.1 mg Q12HR NIXON Administration Dicyclomine HCl 20 mg 10/20/24 08:44 10/22/24 19:58 Dicyclomine Hcl 10 Mg Capsule PO 20 mg QID PRN Administration Abdominal Cramping Folic Acid 1 mg 10/19/24 09:00 10/23/24 09:52 Folic Acid 1 Mg/0.2 Ml Inj IV PUSH 1 mg QAM NIXON Administration Hydralazine HCl 20 mg 10/19/24 08:20 Hydralazine Hcl 20 Mg/Ml Vial IV PUSH Q4H PRN SBP more than 180 Hydroxyzine HCl 25 mg 10/20/24 12:45 10/23/24 09:52 Hydroxyzine Hcl 50 Mg/Ml Vial IM 25 mg Q4H PRN Administration Anxiety Thiamine HCl 300 mg/ Sodium 103 mls @ 206 mls/hr 10/19/24 09:00 10/23/24 09:59 Chloride IVPB 206 mls/hr DAILY NIXON Administration Metronidazole 500 mg in 100 mls @ 100 mls/hr 10/21/24 10:00 10/23/24 09:53 Flagyl 500 Mg/Iso Soln 100 Ml IVPB 100 mls/hr Q8H NIXON Administration Cefepime HCl 2 gm in 50 mls @ 100 mls/hr 10/22/24 11:00 10/23/24 10:00 Maxipime 2 Gm/Ns 50 Ml IVPB 100 mls/hr Q12H NIXON Administration Sodium Chloride 1,000 mls @ 125 mls/hr 10/22/24 10:20 10/23/24 02:38 Normal Saline Iv IV CONT 125 mls/hr .Q8H NIXON Administration Labetalol HCl 10 mg 10/19/24 14:15 10/20/24 06:30 Labetalol Hcl Inj 100 Mg/20 Ml Vial IV PUSH 10 mg Q4H PRN Administration SBP > 180 -1st choce Lactulose 20 gm 10/21/24 09:40 10/23/24 09:54 Lactulose 20 Gm/30 Ml Udc PO Not Given QAM NIXON Lisinopril 40 mg 10/19/24 09:00 10/21/24 09:54 Lisinopril 20 Mg Tablet PO 40 mg QAM NIXON Administration Lorazepam 2 mg 10/20/24 12:44 Lorazepam Inj (*Crx) 2 Mg/Ml Vial IV PUSH Q6H PRN Seizures Nicotine Polacrilex 2 mg 10/22/24 22:58 10/22/24 23:13 Nicotine (*Pbkc) 2 Mg Gum PO 2 mg PRN PRN Administration Nicotine Cravings Ondansetron HCl 4 mg 10/18/24 21:09 10/21/24 14:06 Ondansetron Inj 4 Mg/2 Ml Vial IV PUSH 4 mg Q4H PRN Administration Nausea Oxycodone/Acetaminophen 1 tablet 10/20/24 09:09 10/22/24 19:58 Oxycodone/Acetaminophen (*Crx) 5-325 Mg Tablet PO 1 tablet Q4H PRN Administration Pain Rated 7-10 Polyethylene Glycol 17 gm 10/21/24 04:00 10/23/24 06:24 Polyethylene Glycol 3350 17 Gm Powd.Pack PO 17 gm Q8HR NIXON Administration Senna/Docusate Sodium 1 tab 10/20/24 21:00 10/22/24 20:01 Senna/Docusate Sodium Tablet PO Not Given HS [facility] Radiology Results: ITS Impressions Forearm X-Ray 10/18/24 16:37 IMPRESSION: No acute fracture or dislocation Chest X-Ray 10/18/24 21:11 IMPRESSION: 1. No acute cardiopulmonary disease. Head CT 10/19/24 05:45 Impression: No significant abnormality seen. Abdomen X-Ray 10/19/24 18:14 IMPRESSION: NO ACUTE ABDOMINAL FINDINGS. Abdomen/Pelvis CT 10/21/24 05:24 Impression: Probable gallbladder sludge and diffuse gallbladder wall thickening/edematous change. Correlate for acute cholecystitis. Consider ultrasound and/or HIDA scan for further evaluation. Air in urinary bladder, which may be iatrogenic. Correlate clinically. 2 mm nonobstructing left renal stone. Upper Quadrant Ultrasound 10/21/24 08:18 IMPRESSION: 1. Distended gallbladder with sludge. Severe gallbladder wall thickening may be seen with chronic liver disease or chronic cholecystitis. No sonographic Fernando's sign to suggest acute cholecystitis. If there is clinical concern for acute cholecystitis, consider hepatobiliary scintigraphy. Head/Neck CTA 10/22/24 06:50 Impression: No significant abnormality. Labs Labs: Laboratory Results - last 24 hr 10/23/24 04:04 WBC 19.8 H RBC 3.25 L Hgb 10.1 L Hct 30.5 L MCV 93.8 MCH 31.1 MCHC 33.1 RDW 12.6 Plt Count 208 MPV 12.3 H Immature Gran % (Auto) 1.0 H Neut % (Auto) 92.6 H Lymph % (Auto) 2.2 L [place] % (Auto) 4.0 Eos % (Auto) 0.0 Baso % (Auto) 0.2 Lymph # (Auto) 0.44 L [place] # (Auto) 0.8 H Eos # (Auto) 0.0 Baso # (Auto) 0.0 Abs Immat Gran (auto) 0.19 H Absolute Neuts (auto) 18.3 H Absolute Nucleated RBC 0.000 Nucleated RBC % 0.0 Sodium 136 L Potassium 4.2 Chloride 103 Carbon Dioxide 25 Anion Gap 8 BUN 29 H Creatinine 0.95 Estim Creat Clear Calc 57 Estimated GFR > 60 Glucose 126 H Calcium 8.6 Magnesium 2.4 H Total Bilirubin 0.5 AST 36 ALT 20 Alkaline Phosphatase 76 Total Protein 6.0 L Albumin 3.3 L
--- NOTE | 2024-10-23 15:57 | PC.NURSE ---
This patient, Elham Bennett, was received from IMU on 10/23/24 at 1557. Patient/family oriented to unit policies and routines
--- NOTE | 2024-10-23 16:18 | PC.NURSE ---
This patient, Elham Bennett, was transferred to [facility] on 10/23/24 at 1600. Personal belongings sent with patient. Report given to ALEXANDRIA Lawson. Appropriate documentation sent with patient. Sy Krueger RN
[2024-10-23] MEDS: oxyCODONE/ACETAMINOPHEN (*CRX) 5-325 MG TABLET 1 TABLET PO (18:44)
[2024-10-23] MEDS: SENNA/DOCUSATE SODIUM TABLET 1 TAB PO (21:05)
[2024-10-23] MEDS: LORazepam INJ (*CRX) 2 MG/ML VIAL IV PUSH (21:55)
[2024-10-24] VITALS (10 sets, daily range): BP systolic 143–201; BP diastolic 67–81; PULSE 57–180; RESP 18–22; TEMP 36.7; O2SAT 96–100
[2024-10-24] MEDS: LORazepam INJ (*CRX) 2 MG/ML VIAL IV PUSH ×5 (00:37→20:21)
[2024-10-24] MEDS: SODIUM CHLORIDE 0.9% IV 1,000 ML 125 ML IV CONT (01:55)
[2024-10-24] MEDS: metroNIDAZOLE 500 MG/ISO 100ML 500 MG/100 ML BAG 100 MG IVPB ×3 (01:55→18:18)
[2024-10-24] MEDS: oxyCODONE/ACETAMINOPHEN (*CRX) 5-325 MG TABLET 1 TABLET PO ×3 (01:56→20:19)
[2024-10-24 05:51] LABS: Basophils Percent Auto 0.1 % (0.2-1.2); Eosinophils Absolute Auto 0.1 K/mm3 (0-0.3); Eosinophils Percent Auto 0.4 % (0-4.4); Hematocrit 35.4 % (37.0-47.0); Hemoglobin 11.6 g/dL (12.0-15.0); Immature Granulocyte Absolute 0.07 K/mm3 (0.00-0.031); Immature Granulocyte Percent A 0.5 % (0-0.5); Lymphocytes Absolute Auto 1.19 K/mm3 (0.9-3.2); Lymphocytes Percent Auto 8.5 % (18.3-44.2); Mean Corpuscular HGB Conc 32.8 g/dl (32-36); Mean Corpuscular Hemoglobin 31.5 pg (26-34); Mean Corpuscular Volume 96.2 fl (80-100); Mean Platelet Volume 11.6 fl (7.4-10.4); Monocytes Absolute Auto 1.3 K/mm3 (0.1-0.6); Monocytes Percent Auto 9.2 % (2.6-8.5); Neutrophils Absolute Auto 11.4 K/mm3 (1.3-6.7); Neutrophils Percent Auto 81.3 % (45.5-73.1); Platelet Count Result 286 k/mm3 (150-375); Red Blood Count 3.68 M/mm3 (4.2-5.4)
[2024-10-24 06:03] LABS: Alanine Aminotransferase 30 U/L (6-35); Albumin Level 3.2 g/dL (3.5-5.1); Alkaline Phosphatase 90 U/L (38-126); Anion Gap 8 mmol/L (4-12); Aspartate Amino Transferase 46 U/L (14-36); Bilirubin,Total 0.4 mg/dL (0.2-1.3); Blood Urea Nitrogen 25 mg/dL (7-17); Calcium 8.4 mg/dL (8.4-10.2); Carbon Dioxide 23 mmol/L (22-30); Chloride 111 mmol/L (98-107); Estimated CRCL calculation 52 ml/min; Estimated Glomerular Filt Rate 55; Glucose 82 mg/dL (65-110); Magnesium 2.2 mg/dL (1.6-2.3); Potassium 3.4 mmol/L (3.4-5.0); Sodium 142 mmol/L (137-145)
[2024-10-24] MEDS: LABETALOL HCL INJ 100 MG/20 ML VIAL 10 MG IV PUSH ×2 (08:38→20:29)
[2024-10-24] MEDS: THIAMINE HCL INJ 300 MG in SODIUM CHLORIDE 0.9% IV 100 ML 206 MG IVPB (08:40)
--- NOTE | 2024-10-24 10:50 | PCNFU ---
Nutrition Follow-Up Complete: Severe Protein Calorie Malnutrition as related to inadequate protein energy intake in the setting of acute disease as evidenced by < 75% of EER for > 7 days; moderate muscle wasting (temporalis) and moderate subcutaneous fat loss (orbital fat pads). Meet estimated nutritional needs. - Not meeting goal, NPO/CL combined Day 4 Goal: Pt current nutrition is NPO with icec chips for surgery today. Placement of ashley tube. Nutrition recommendation: If not able to advance diet by tomorrow (will be NPO/CL combined day 5), recommend possible parenteral nutrition Last recorded weight is 70.6 kg. Bowel Motility: +4 BMs 10/22/24 Labs Reviewed: Hgb 11.6, Hct 35.4, Alb 3.2, GFR 55, BUN 25, Cre 1.06 Meds Noted: Thiamine, folic acid, senna, miralax Skin: WNL Additional Notes: Clear liquid/NPO combined day 4 today. Will make recommendations tomorrow if diet not able to be advanced. Will monitor weight, labs, skin, diet orders, meds every 3 days.
--- NOTE | 2024-10-24 11:16 | PM.PNGS ---
Progress Note: A&P Assessment and Plan (1) Cholecystitis: Code(s): K81.9 - Cholecystitis, unspecified Status: Acute Assessment and Plan: Patient has abdominal ultrasound and CT scans of the abdomen pelvis showing edema of the gallbladder wall and dilated gallbladder with gallbladder sludge. She has had tenderness over the area of the gallbladder, which remains the same today. Her WBC count is coming down to 14,000 today. Will further evaluate for acute cholecystitis with a HIDA scan today. If her cystic duct appears occlude, then we would recommend proceeding with image guided percutaneous cholecystostomy tube placement for gallbladder decompression for now. Continue IV antibiotics. Will keep her NPO for HIDA scan and possible cholecystostomy tube placement. Plan I have discussed the patient's case and plan of care with Dr. Luong. Subjective Subjective Date/Time Seen: 10/24/24 11:16 Interval history: Patient seen this morning. She is arousable, but extremely agitated when asking questions. She reports having abdominal pain but cannot describe the location. Patient does not provide any additional information when asking any questions. She recently received IV Ativan for her CIWA score of 15. Per nursing, she was hypertensive this morning and is being treated for this by the hospitalist. Exam Const: General: comfortable (while sleeping, but agitated and anxious once awake) and no acute distress Orientation/consciousness: oriented to person, No oriented to place and No oriented to time GI: Inspection: non-distended GI Palp: Yes Soft to palpation, Yes Tenderness to palpation present (GI), No Guarding due to palpation present (GI) and No Rebound tenderness present Auscultation: normal bowel sounds Objective Data Vital Signs Vital Signs: Vital Signs - 24 hr 10/23/24 12:00 10/23/24 14:00 10/23/24 16:00 Temperature Pulse Rate 71 69 62 Pulse Rate [Right Radial Palpation] Respiratory Rate Blood Pressure Pulse Oximetry Oxygen Delivery 10/23/24 19:05 10/23/24 19:40 10/23/24 19:40 Temperature 98.7 F Pulse Rate 65 Pulse Rate [Right Radial Palpation] 63 Respiratory Rate 20 Blood Pressure 159/91 H 159/91 H Pulse Oximetry 100 Oxygen Delivery Room Air 10/23/24 20:06 10/23/24 21:40 10/23/24 22:41 Temperature Pulse Rate 86 100 Pulse Rate [Right Radial Palpation] Respiratory Rate 22 H Blood Pressure 162/76 H 154/74 H Pulse Oximetry 96 Oxygen Delivery Room Air 10/24/24 00:00 10/24/24 00:00 10/24/24 04:00 Temperature Pulse Rate 57 L Pulse Rate [Right Radial Palpation] 57 L 65 Respiratory Rate Blood Pressure Pulse Oximetry Oxygen Delivery 10/24/24 04:00 10/24/24 08:00 10/24/24 08:38 Temperature 98.1 F Pulse Rate 65 66 71 Pulse Rate [Right Radial Palpation] Respiratory Rate 22 H Blood Pressure 201/81 H Pulse Oximetry 98 Oxygen Delivery 10/24/24 09:10 Temperature Pulse Rate Pulse Rate [Right Radial Palpation] Respiratory Rate Blood Pressure Pulse Oximetry Oxygen Delivery Room Air Intake/Output Intake/Output: Intake & Output 10/21/24 10/22/24 10/23/24 10/24/24 23:59 23:59 23:59 23:59 Intake Total 1093 2423 6100.1 303 Output Total 700 Balance 393 2423 6100.1 303 Meds/Results Medications: Active Medications Generic Name Dose Route Start Last Admin Trade Name Freq PRN Reason Stop Dose Admin Acetaminophen 650 mg 10/19/24 00:31 10/22/24 22:49 Acetaminophen 325 Mg Tablet PO 650 mg Q4H PRN Administration Mild Pain (1-3) or Fever Al Hydrox/Mg Hydrox/Simethicone 30 ml 10/19/24 17:51 10/21/24 14:06 Mag Hydrox/Al Hydrox/Simeth 30 Ml Udc PO 30 ml Q6H PRN Administration Indigestion Amlodipine Besylate 10 mg 10/20/24 12:10 10/21/24 09:55 Amlodipine Besylate 10 Mg Tablet PO 10 mg DAILY NIXON Administration Aspirin 81 mg 10/19/24 09:00 10/24/24 10:39 Aspirin 81 Mg Enteric Tablet PO Not Given QAM NIXON Carvedilol 12.5 mg 10/20/24 21:00 10/21/24 09:54 Carvedilol 12.5 Mg Tablet PO 12.5 mg Q12HR NIXON Administration Chlordiazepoxide HCl 50 mg 10/23/24 21:43 Chlordiazepoxide (*Crx) 25 Mg Capsule PO Q6H PRN Withdrawal Clonidine HCl 0.1 mg 10/20/24 09:00 10/24/24 10:40 Clonidine Hcl 0.1 Mg Tablet PO Not Given Q12HR NIXON Clonidine HCl 1 patch 10/24/24 10:50 Clonidine 0.1 Mg/24 Hr Patch TRANSDERM WEEKLY NIXON Dicyclomine HCl 20 mg 10/20/24 08:44 10/22/24 19:58 Dicyclomine Hcl 10 Mg Capsule PO 20 mg QID PRN Administration Abdominal Cramping Folic Acid 1 mg 10/19/24 09:00 10/23/24 09:52 Folic Acid 1 Mg/0.2 Ml Inj IV PUSH 1 mg QAM NIXON Administration Hydralazine HCl 20 mg 10/19/24 08:20 Hydralazine Hcl 20 Mg/Ml Vial IV PUSH Q4H PRN SBP more than 180 Hydroxyzine HCl 25 mg 10/20/24 12:45 10/23/24 19:36 Hydroxyzine Hcl 50 Mg/Ml Vial IM 25 mg Q4H PRN Administration Anxiety Thiamine HCl 300 mg/ Sodium 103 mls @ 206 mls/hr 10/19/24 09:00 10/24/24 09:10 Chloride IVPB Infused DAILY NIXON Infusion Metronidazole 500 mg in 100 mls @ 100 mls/hr 10/21/24 10:00 10/24/24 10:28 Flagyl 500 Mg/Iso Soln 100 Ml IVPB 100 mls/hr Q8H NIXON Administration Cefepime HCl 2 gm in 50 mls @ 100 mls/hr 10/22/24 11:00 10/23/24 22:30 Maxipime 2 Gm/Ns 50 Ml IVPB Infused Q12H NIXON Infusion Sodium Chloride 1,000 mls @ 125 mls/hr 10/22/24 10:20 10/24/24 02:00 Normal Saline Iv IV CONT Not Given .Q8H NIXON Labetalol HCl 10 mg 10/19/24 14:15 10/24/24 08:38 Labetalol Hcl Inj 100 Mg/20 Ml Vial IV PUSH 10 mg Q4H PRN Administration SBP > 180 -1st choce Lactulose 20 gm 10/21/24 09:40 10/24/24 10:40 Lactulose 20 Gm/30 Ml Udc PO Not Given QAM NIXON Lisinopril 40 mg 10/19/24 09:00 10/21/24 09:54 Lisinopril 20 Mg Tablet PO 40 mg QAM NIXON Administration Lorazepam 2 mg 10/23/24 21:43 10/24/24 00:37 Lorazepam Inj (*Crx) 2 Mg/Ml Vial IV PUSH 2 mg Q2H PRN Administration CIWA > 15 Lorazepam 2 mg 10/23/24 21:43 10/24/24 08:35 Lorazepam Inj (*Crx) 2 Mg/Ml Vial IV PUSH 2 mg Q4H PRN Administration CIWA 8-15 Nicotine Polacrilex 2 mg 10/22/24 22:58 10/22/24 23:13 Nicotine (*Pbkc) 2 Mg Gum PO 2 mg PRN PRN Administration Nicotine Cravings Ondansetron HCl 4 mg 10/18/24 21:09 10/21/24 14:06 Ondansetron Inj 4 Mg/2 Ml Vial IV PUSH 4 mg Q4H PRN Administration Nausea Oxycodone/Acetaminophen 1 tablet 10/20/24 09:09 10/24/24 01:56 Oxycodone/Acetaminophen (*Crx) 5-325 Mg Tablet PO 1 tablet Q4H PRN Administration Pain Rated 7-10 Polyethylene Glycol 17 gm 10/21/24 04:00 10/24/24 05:22 Polyethylene Glycol 3350 17 Gm Powd.Pack PO Not Given Q8HR [facility] Senna/Docusate Sodium 1 tab 10/20/24 21:00 10/23/24 21:05 Senna/Docusate Sodium Tablet PO 1 tab HS NIXON Administration Radiology Results: ITS Impressions Forearm X-Ray 10/18/24 16:37 IMPRESSION: No acute fracture or dislocation Chest X-Ray 10/18/24 21:11 IMPRESSION: 1. No acute cardiopulmonary disease. Head CT 10/19/24 05:45 Impression: No significant abnormality seen. Abdomen X-Ray 10/19/24 18:14 IMPRESSION: NO ACUTE ABDOMINAL FINDINGS. Abdomen/Pelvis CT 10/21/24 05:24 Impression: Probable gallbladder sludge and diffuse gallbladder wall thickening/edematous change. Correlate for acute cholecystitis. Consider ultrasound and/or HIDA scan for further evaluation. Air in urinary bladder, which may be iatrogenic. Correlate clinically. 2 mm nonobstructing left renal stone. Upper Quadrant Ultrasound 10/21/24 08:18 IMPRESSION: 1. Distended gallbladder with sludge. Severe gallbladder wall thickening may be seen with chronic liver disease or chronic cholecystitis. No sonographic Fernando's sign to suggest acute cholecystitis. If there is clinical concern for acute cholecystitis, consider hepatobiliary scintigraphy. Head/Neck CTA 10/22/24 06:50 Impression: No significant abnormality. Labs Labs: Laboratory Results - last 24 hr 10/24/24 05:44 WBC 14.0 H RBC 3.68 L Hgb 11.6 L Hct 35.4 L MCV 96.2 MCH 31.5 MCHC 32.8 RDW 13.0 Plt Count 286 MPV 11.6 H Immature Gran % (Auto) 0.5 Neut % (Auto) 81.3 H Lymph % (Auto) 8.5 L [place] % (Auto) 9.2 H Eos % (Auto) 0.4 Baso % (Auto) 0.1 L Lymph # (Auto) 1.19 [place] # (Auto) 1.3 H Eos # (Auto) 0.1 Baso # (Auto) 0.0 Abs Immat Gran (auto) 0.07 H Absolute Neuts (auto) 11.4 H Absolute Nucleated RBC 0.000 Nucleated RBC % 0.0 Sodium 142 Potassium 3.4 Chloride 111 H Carbon Dioxide 23 Anion Gap 8 BUN 25 H Creatinine 1.06 H Estim Creat Clear Calc 52 Estimated GFR 55 L Glucose 82 Calcium 8.4 Magnesium 2.2 Total Bilirubin 0.4 AST 46 H ALT 30 Alkaline Phosphatase 90 Total Protein 6.0 L Albumin 3.2 L
[2024-10-24] MEDS: cloNIDine 0.1 MG/24 HR PATCH 1 PATCH TRANSDERM (11:30)
[2024-10-24] MEDS: CEFEPIME 2 GM/NS 50 ML 2 GM/50 ML BAG IVPB ×2 (12:02→22:19)
--- NOTE | 2024-10-24 14:09 | PM.IMPN ---
Progress Note: A&P Assessment and Plan (1) Substance abuse: Code(s): F19.10 - Other psychoactive substance abuse, uncomplicated Status: Acute (2) Uncontrolled hypertension: Code(s): I10 - Essential (primary) hypertension Status: Acute (3) NSTEMI (non-ST elevated myocardial infarction): Code(s): I21.4 - Non-ST elevation (NSTEMI) myocardial infarction Status: Acute (4) Acute hypokalemia: Code(s): E87.6 - Hypokalemia Status: Acute (5) Alcohol abuse: Code(s): F10.10 - Alcohol abuse, uncomplicated Status: Acute (6) Cholecystitis: Code(s): K81.9 - Cholecystitis, unspecified Status: Acute Plan Substance abuse Pt drinking alcohol and UDS positive for Amphetamine CIWA pt scoring high Started Librium tapering dose Thiamine and folic acid Lorazepam 2 mg q.4 hours p.r.n. for seizure Hydroxyzine 25 mg p.o. q.6 hours p.r.n. for anxiety Bentyl 20 mg p.o. q.6 hours p.r.n. for abdominal discomfort Hold Methocarbamol 500 mg p.o. q.6 hours p.r.n. for muscle spasm Hold Catapres 0.1 mg p.o. q.12 hours for HTN due to lower blood pressure Hold if BP less than 90/60 clonidine changed to patch Troponin elevation As per Cardiology -most likely as a result of her uncontrolled hypertension as well as the positive urine drug screen for methamphetamine -echocardiogram review normal biventricular systolic function with severe left ventricular hypertrophy HTN Patient was previously in ICU for Nitro drip Lisinopril 40mg PO QD, Clonidine 0.1mg PO BID, Coreg 12.5 mg PO BID,Amlodipine 10mg PO QD. Pt is out of icu changed to patch because she is not tolerating oral pills Cholecystitis US Abd:1. Distended gallbladder with sludge. Severe gallbladder wall thickening may be seen with chronic liver disease or chronic cholecystitis. No sonographic Fernando's sign to suggest acute cholecystitis. If there is clinical concern for acute cholecystitis, consider hepatobiliary scintigraphy. CT Abd/Pelvis:Probable gallbladder sludge and diffuse gallbladder wall thickening/edematous change. Correlate for acute cholecystitis. Consider ultrasound and/or HIDA scan for further evaluation.Air in urinary bladder, which may be iatrogenic. Correlate clinically.2 mm nonobstructing left renal stone. Discontinue ceftriaxone and added metronidazole Ordered cefepime Ordered repeat blood cultures Order HIDA scan, Blood culture, lactic acid Surgery consulted and appreciated recommendation As per surgery percutaneous image guided cholecystostomy tube placement on Thursday. Procedure postponed as pt is so somnolent today Subjective Date/time seen: 10/24/24 14:09 Interval history: pt admitted with htn urgency, nstemi, alcholol with drawl. pt having high ciwa scores pt just transferred out of icu, pt is somnolent today Blood pressure still high unable to take oral medications pt also found to have cholecystitis surgery plans HIDA scan and possible cholecystostomy tube unfortunately pt is too somnolent to have test today Review of Systems Review of Systems: Pt is somnolent having high ciwa scores Exam Narrative: General: Pt is drowsy chronically ill and frail Lungs/Chest: Trachea central Clear BS B/L, No crackles or wheezing. Cardiac: RRR. Normal S1 S2. No murmurs Circulation: Pedal pulses are intact and symmetrical. Abdomen: Normal bowel sounds.. Soft. NT. ND. Extremities: No clubbing, cyanosis or edema. Warm : Daniel in place Neurologic: Drowsy Objective Data Vital Signs Vital Signs: Vital Signs - 24 hr 10/23/24 16:00 10/23/24 19:05 10/23/24 19:40 Temperature 37.1 C Pulse Rate 62 65 Pulse Rate [Right Radial Palpation] 63 Respiratory Rate 20 Blood Pressure 159/91 H 159/91 H Pulse Oximetry 100 Oxygen Delivery 10/23/24 19:40 10/23/24 20:06 10/23/24 21:40 Temperature Pulse Rate 86 100 Pulse Rate [Right Radial Palpation] Respiratory Rate 22 H Blood Pressure 162/76 H Pulse Oximetry 96 Oxygen Delivery Room Air Room Air 10/23/24 22:41 10/24/24 00:00 10/24/24 00:00 Temperature Pulse Rate 57 L Pulse Rate [Right Radial Palpation] 57 L Respiratory Rate Blood Pressure 154/74 H Pulse Oximetry Oxygen Delivery 10/24/24 04:00 10/24/24 04:00 10/24/24 08:00 Temperature 36.7 C Pulse Rate 65 66 Pulse Rate [Right Radial Palpation] 65 Respiratory Rate 22 H Blood Pressure 201/81 H Pulse Oximetry 98 Oxygen Delivery 10/24/24 08:38 10/24/24 09:10 Temperature Pulse Rate 71 Pulse Rate [Right Radial Palpation] Respiratory Rate Blood Pressure Pulse Oximetry Oxygen Delivery Room Air Intake/Output Intake/Output: Intake & Output 10/21/24 10/22/24 10/23/24 10/24/24 23:59 23:59 23:59 23:59 Intake Total 1093 2423 6100.1 403 Output Total 700 Balance 393 2423 6100.1 403 Meds/Results Medications: Active Medications Generic Name Dose Route Start Last Admin Trade Name Freq PRN Reason Stop Dose Admin Acetaminophen 650 mg 10/19/24 00:31 10/22/24 22:49 Acetaminophen 325 Mg Tablet PO 650 mg Q4H PRN Administration Mild Pain (1-3) or Fever Al Hydrox/Mg Hydrox/Simethicone 30 ml 10/19/24 17:51 10/21/24 14:06 Mag Hydrox/Al Hydrox/Simeth 30 Ml Udc PO 30 ml Q6H PRN Administration Indigestion Amlodipine Besylate 10 mg 10/20/24 12:10 10/21/24 09:55 Amlodipine Besylate 10 Mg Tablet PO 10 mg DAILY NIXON Administration Aspirin 81 mg 10/19/24 09:00 10/24/24 10:39 Aspirin 81 Mg Enteric Tablet PO Not Given QAM NIXON Carvedilol 12.5 mg 10/20/24 21:00 10/21/24 09:54 Carvedilol 12.5 Mg Tablet PO 12.5 mg Q12HR NIXON Administration Chlordiazepoxide HCl 50 mg 10/23/24 21:43 Chlordiazepoxide (*Crx) 25 Mg Capsule PO Q6H PRN Withdrawal Clonidine HCl 0.1 mg 10/20/24 09:00 10/24/24 10:40 Clonidine Hcl 0.1 Mg Tablet PO Not Given Q12HR NIXON Clonidine HCl 1 patch 10/24/24 10:50 10/24/24 11:30 Clonidine 0.1 Mg/24 Hr Patch TRANSDERM 1 patch WEEKLY NIXON Administration Dicyclomine HCl 20 mg 10/20/24 08:44 10/22/24 19:58 Dicyclomine Hcl 10 Mg Capsule PO 20 mg QID PRN Administration Abdominal Cramping Folic Acid 1 mg 10/19/24 09:00 10/23/24 09:52 Folic Acid 1 Mg/0.2 Ml Inj IV PUSH 1 mg QAM NIXON Administration Hydralazine HCl 20 mg 10/19/24 08:20 Hydralazine Hcl 20 Mg/Ml Vial IV PUSH Q4H PRN SBP more than 180 Hydroxyzine HCl 25 mg 10/20/24 12:45 10/23/24 19:36 Hydroxyzine Hcl 50 Mg/Ml Vial IM 25 mg Q4H PRN Administration Anxiety Thiamine HCl 300 mg/ Sodium 103 mls @ 206 mls/hr 10/19/24 09:00 10/24/24 09:10 Chloride IVPB Infused DAILY NIXON Infusion Metronidazole 500 mg in 100 mls @ 100 mls/hr 10/21/24 10:00 10/24/24 11:28 Flagyl 500 Mg/Iso Soln 100 Ml IVPB Infused Q8H NIXON Infusion Cefepime HCl 2 gm in 50 mls @ 100 mls/hr 10/22/24 11:00 10/24/24 12:02 Maxipime 2 Gm/Ns 50 Ml IVPB 100 mls/hr Q12H NIXON Administration Sodium Chloride 1,000 mls @ 125 mls/hr 10/22/24 10:20 10/24/24 02:00 Normal Saline Iv IV CONT Not Given .Q8H NIXON Labetalol HCl 10 mg 10/19/24 14:15 10/24/24 08:38 Labetalol Hcl Inj 100 Mg/20 Ml Vial IV PUSH 10 mg Q4H PRN Administration SBP > 180 -1st choce Lactulose 20 gm 10/21/24 09:40 10/24/24 10:40 Lactulose 20 Gm/30 Ml Udc PO Not Given QAM NIXON Lisinopril 40 mg 10/19/24 09:00 10/21/24 09:54 Lisinopril 20 Mg Tablet PO 40 mg QAM NIXON Administration Lorazepam 2 mg 10/23/24 21:43 10/24/24 11:58 Lorazepam Inj (*Crx) 2 Mg/Ml Vial IV PUSH 2 mg Q2H PRN Administration CIWA > 15 Lorazepam 2 mg 10/23/24 21:43 10/24/24 08:35 Lorazepam Inj (*Crx) 2 Mg/Ml Vial IV PUSH 2 mg Q4H PRN Administration CIWA 8-15 Nicotine Polacrilex 2 mg 10/22/24 22:58 10/22/24 23:13 Nicotine (*Pbkc) 2 Mg Gum PO 2 mg PRN PRN Administration Nicotine Cravings Ondansetron HCl 4 mg 10/18/24 21:09 10/21/24 14:06 Ondansetron Inj 4 Mg/2 Ml Vial IV PUSH 4 mg Q4H PRN Administration Nausea Oxycodone/Acetaminophen 1 tablet 10/20/24 09:09 10/24/24 01:56 Oxycodone/Acetaminophen (*Crx) 5-325 Mg Tablet PO 1 tablet Q4H PRN Administration Pain Rated 7-10 Polyethylene Glycol 17 gm 10/21/24 04:00 10/24/24 13:31 Polyethylene Glycol 3350 17 Gm Powd.Pack PO Not Given Q8HR NIXON Senna/Docusate Sodium 1 tab 10/20/24 21:00 10/23/24 21:05 Senna/Docusate Sodium Tablet PO 1 tab HS NIXON Administration Radiology Results: ITS Impressions Forearm X-Ray 10/18/24 16:37 IMPRESSION: No acute fracture or dislocation Chest X-Ray 10/18/24 21:11 IMPRESSION: 1. No acute cardiopulmonary disease. Head CT 10/19/24 05:45 Impression: No significant abnormality seen. Abdomen X-Ray 10/19/24 18:14 IMPRESSION: NO ACUTE ABDOMINAL FINDINGS. Abdomen/Pelvis CT 10/21/24 05:24 Impression: Probable gallbladder sludge and diffuse gallbladder wall thickening/edematous change. Correlate for acute cholecystitis. Consider ultrasound and/or HIDA scan for further evaluation. Air in urinary bladder, which may be iatrogenic. Correlate clinically. 2 mm nonobstructing left renal stone. Upper Quadrant Ultrasound 10/21/24 08:18 IMPRESSION: 1. Distended gallbladder with sludge. Severe gallbladder wall thickening may be seen with chronic liver disease or chronic cholecystitis. No sonographic Fernando's sign to suggest acute cholecystitis. If there is clinical concern for acute cholecystitis, consider hepatobiliary scintigraphy. Head/Neck CTA 10/22/24 06:50 Impression: No significant abnormality. Labs Labs: Laboratory Results - last 24 hr 10/24/24 05:44 WBC 14.0 H RBC 3.68 L Hgb 11.6 L Hct 35.4 L MCV 96.2 MCH 31.5 MCHC 32.8 RDW 13.0 Plt Count 286 MPV 11.6 H Immature Gran % (Auto) 0.5 Neut % (Auto) 81.3 H Lymph % (Auto) 8.5 L [place] % (Auto) 9.2 H Eos % (Auto) 0.4 Baso % (Auto) 0.1 L Lymph # (Auto) 1.19 [place] # (Auto) 1.3 H Eos # (Auto) 0.1 Baso # (Auto) 0.0 Abs Immat Gran (auto) 0.07 H Absolute Neuts (auto) 11.4 H Absolute Nucleated RBC 0.000 Nucleated RBC % 0.0 Sodium 142 Potassium 3.4 Chloride 111 H Carbon Dioxide 23 Anion Gap 8 BUN 25 H Creatinine 1.06 H Estim Creat Clear Calc 52 Estimated GFR 55 L Glucose 82 Calcium 8.4 Magnesium 2.2 Total Bilirubin 0.4 AST 46 H ALT 30 Alkaline Phosphatase 90 Total Protein 6.0 L Albumin 3.2 L
[2024-10-24] MEDS: DEXTROSE 5%/0.45% SOD CHL 1,000 ML 70 ML IV CONT (14:52)
[2024-10-24] MEDS: FOLIC ACID 1 MG/0.2 ML INJ IV PUSH (14:52)
[2024-10-24] MEDS: chlordiazePOXIDE (*CRX) 25 MG CAPSULE PO (18:02)
[2024-10-24] MEDS: polyethylene glycoL 3350 17 GM POWD.PACK PO (20:18)
[2024-10-24] MEDS: SENNA/DOCUSATE SODIUM TABLET 1 TAB PO (20:18)
[2024-10-25] VITALS (8 sets, daily range): BP systolic 163–178; BP diastolic 68–85; PULSE 63–89; RESP 16; TEMP 36.5–36.6; O2SAT 97–98
[2024-10-25] MEDS: LORazepam INJ (*CRX) 2 MG/ML VIAL IV PUSH ×2 (00:40→20:20)
[2024-10-25] MEDS: metroNIDAZOLE 500 MG/ISO 100ML 500 MG/100 ML BAG 100 MG IVPB ×3 (02:09→17:14)
[2024-10-25] MEDS: hydrOXYzine HCl 50 MG/ML VIAL 25 MG IM (02:15)
[2024-10-25 05:38] LABS: Basophils Percent Auto 0.2 % (0.2-1.2); Eosinophils Absolute Auto 0.2 K/mm3 (0-0.3); Eosinophils Percent Auto 1.5 % (0-4.4); Hematocrit 34.5 % (37.0-47.0); Hemoglobin 10.7 g/dL (12.0-15.0); Immature Granulocyte Absolute 0.06 K/mm3 (0.00-0.031); Immature Granulocyte Percent A 0.5 % (0-0.5); Lymphocytes Percent Auto 7.2 % (18.3-44.2); Mean Corpuscular Hemoglobin 30.2 pg (26-34); Mean Corpuscular Volume 97.5 fl (80-100); Mean Platelet Volume 11.1 fl (7.4-10.4); Monocytes Absolute Auto 0.9 K/mm3 (0.1-0.6); Monocytes Percent Auto 6.9 % (2.6-8.5); Neutrophils Absolute Auto 10.5 K/mm3 (1.3-6.7); Neutrophils Percent Auto 83.7 % (45.5-73.1); Platelet Count Result 340 k/mm3 (150-375); Red Blood Count 3.54 M/mm3 (4.2-5.4); Red Cell Distribution Width 13.2 % (11.5-14.5); White Blood Count 12.5 K/mm3 (4.5-10.0)
[2024-10-25 05:57] LABS: Alanine Aminotransferase 43 U/L (6-35); Albumin Level 2.9 g/dL (3.5-5.1); Alkaline Phosphatase 141 U/L (38-126); Anion Gap 9 mmol/L (4-12); Aspartate Amino Transferase 64 U/L (14-36); Bilirubin,Total 0.8 mg/dL (0.2-1.3); Blood Urea Nitrogen 29 mg/dL (7-17); Calcium 8.2 mg/dL (8.4-10.2); Carbon Dioxide 21 mmol/L (22-30); Chloride 114 mmol/L (98-107); Estimated CRCL calculation 32 ml/min; Estimated Glomerular Filt Rate 30; Glucose 88 mg/dL (65-110); Potassium 3.4 mmol/L (3.4-5.0); Sodium 144 mmol/L (137-145)
[2024-10-25] MEDS: oxyCODONE/ACETAMINOPHEN (*CRX) 5-325 MG TABLET 1 TABLET PO ×2 (06:25→20:19)
[2024-10-25] MEDS: FOLIC ACID 1 MG/0.2 ML INJ IV PUSH (09:53)
[2024-10-25] MEDS: THIAMINE HCL INJ 300 MG in SODIUM CHLORIDE 0.9% IV 100 ML 206 MG IVPB (09:53)
[2024-10-25] MEDS: ARIPiprazole 5 MG TABLET PO (09:58)
[2024-10-25] MEDS: LACTULOSE 20 GM/30 ML UDC PO (10:02)
[2024-10-25] MEDS: ASPIRIN 81 MG ENTERIC TABLET PO (10:02)
[2024-10-25] MEDS: CEFEPIME 2 GM/NS 50 ML 2 GM/50 ML BAG IVPB ×2 (12:01→22:34)
--- NOTE | 2024-10-25 12:25 | PM.IMPN ---
Progress Note: A&P Assessment and Plan (1) Substance abuse: Code(s): F19.10 - Other psychoactive substance abuse, uncomplicated Status: Acute (2) Uncontrolled hypertension: Code(s): I10 - Essential (primary) hypertension Status: Acute (3) NSTEMI (non-ST elevated myocardial infarction): Code(s): I21.4 - Non-ST elevation (NSTEMI) myocardial infarction Status: Acute (4) Acute hypokalemia: Code(s): E87.6 - Hypokalemia Status: Acute (5) Alcohol abuse: Code(s): F10.10 - Alcohol abuse, uncomplicated Status: Acute (6) Cholecystitis: Code(s): K81.9 - Cholecystitis, unspecified Status: Acute Plan Substance abuse Pt drinking alcohol and UDS positive for Amphetamine CIWA pt scoring high Started Librium tapering dose Thiamine and folic acid Lorazepam 2 mg q.4 hours p.r.n. for seizure Hydroxyzine 25 mg p.o. q.6 hours p.r.n. for anxiety Bentyl 20 mg p.o. q.6 hours p.r.n. for abdominal discomfort Hold Methocarbamol 500 mg p.o. q.6 hours p.r.n. for muscle spasm Hold Catapres 0.1 mg p.o. q.12 hours for HTN due to lower blood pressure Hold if BP less than 90/60 clonidine changed to patch Troponin elevation As per Cardiology -most likely as a result of her uncontrolled hypertension as well as the positive urine drug screen for methamphetamine -echocardiogram review normal biventricular systolic function with severe left ventricular hypertrophy HTN s/p Nitro drip Lisinopril 40mg PO QD, Clonidine 0.1mg PO BID, Coreg 12.5 mg PO BID,Amlodipine 10mg PO QD. Pt is out of icu changed to patch because she is not tolerating oral pills Cholecystitis US Abd:1. Distended gallbladder with sludge. Severe gallbladder wall thickening may be seen with chronic liver disease or chronic cholecystitis. No sonographic Fernando's sign to suggest acute cholecystitis. If there is clinical concern for acute cholecystitis, consider hepatobiliary scintigraphy. CT Abd/Pelvis:Probable gallbladder sludge and diffuse gallbladder wall thickening/edematous change. Correlate for acute cholecystitis. Consider ultrasound and/or HIDA scan for further evaluation.Air in urinary bladder, which may be iatrogenic. Correlate clinically.2 mm nonobstructing left renal stone. Now on Cefepime and Flagyl Awaiting HIDA and cholecystostomy Procedure postponed as pt is so somnolent today DVT prophylaxis on Sq Lovenox Subjective Date/time seen: 10/25/24 12:25 Interval history: Awaiting HIDA scan today Somnolent at bedside Review of Systems Review of Systems: Pt is somnolent having high ciwa scores All systems reviewed & are unremarkable except as noted in HPI and below ROS unobtainable: Yes unobtainable due to medical condition and unobtainable due to mental status Exam Narrative: General: Pt is drowsy chronically ill and frail Lungs/Chest: Trachea central Clear BS B/L, No crackles or wheezing. Cardiac: RRR. Normal S1 S2. No murmurs Circulation: Pedal pulses are intact and symmetrical. Abdomen: Normal bowel sounds.. Soft. NT. ND. Extremities: No clubbing, cyanosis or edema. Warm : Daniel in place Neurologic: Drowsy Objective Data Vital Signs Vital Signs: Vital Signs - 24 hr 10/24/24 16:00 10/24/24 18:00 10/24/24 20:00 Temperature 98.1 F Pulse Rate 69 70 Pulse Rate [Right Radial Palpation] 78 Respiratory Rate 18 Blood Pressure 143/67 H 180/80 H Pulse Oximetry 96 Oxygen Delivery 10/24/24 20:00 10/24/24 20:00 10/24/24 20:25 Temperature Pulse Rate 66 78 Pulse Rate [Right Radial Palpation] Respiratory Rate 20 Blood Pressure 180/80 H Pulse Oximetry 100 Oxygen Delivery Room Air 10/24/24 20:29 10/25/24 00:00 10/25/24 00:00 Temperature Pulse Rate 180 H 64 Pulse Rate [Right Radial Palpation] 63 Respiratory Rate Blood Pressure 163/68 H Pulse Oximetry Oxygen Delivery 10/25/24 04:00 10/25/24 04:00 10/25/24 08:00 Temperature Pulse Rate 71 76 Pulse Rate [Right Radial Palpation] 71 Respiratory Rate Blood Pressure Pulse Oximetry Oxygen Delivery 10/25/24 10:06 Temperature Pulse Rate Pulse Rate [Right Radial Palpation] Respiratory Rate Blood Pressure Pulse Oximetry Oxygen Delivery Room Air Intake/Output Intake/Output: Intake & Output 10/22/24 10/23/24 10/24/24 10/25/24 23:59 23:59 23:59 23:59 Intake Total 2423 6100.1 603 1353 Balance 2423 6100.1 603 1353 Meds/Results Medications: Active Medications Generic Name Dose Route Start Last Admin Trade Name Freq PRN Reason Stop Dose Admin Acetaminophen 650 mg 10/19/24 00:31 10/22/24 22:49 Acetaminophen 325 Mg Tablet PO 650 mg Q4H PRN Administration Mild Pain (1-3) or Fever Al Hydrox/Mg Hydrox/Simethicone 30 ml 10/19/24 17:51 10/21/24 14:06 Mag Hydrox/Al Hydrox/Simeth 30 Ml Udc PO 30 ml Q6H PRN Administration Indigestion Amlodipine Besylate 10 mg 10/20/24 12:10 10/21/24 09:55 Amlodipine Besylate 10 Mg Tablet PO 10 mg DAILY NIXON Administration Aripiprazole 5 mg 10/25/24 09:00 10/25/24 09:58 Aripiprazole 5 Mg Tablet PO 5 mg DAILY NIXON Administration Aspirin 81 mg 10/19/24 09:00 10/25/24 10:02 Aspirin 81 Mg Enteric Tablet PO 81 mg QAM NIXON Administration Carvedilol 12.5 mg 10/20/24 21:00 10/21/24 09:54 Carvedilol 12.5 Mg Tablet PO 12.5 mg Q12HR NIXON Administration Chlordiazepoxide HCl 25 mg 10/24/24 14:42 10/24/24 18:02 Chlordiazepoxide (*Crx) 25 Mg Capsule PO 25 mg Q6H PRN Administration Withdrawal Clonidine HCl 0.1 mg 10/20/24 09:00 10/24/24 10:40 Clonidine Hcl 0.1 Mg Tablet PO Not Given Q12HR NIXON Clonidine HCl 1 patch 10/24/24 10:50 10/24/24 11:30 Clonidine 0.1 Mg/24 Hr Patch TRANSDERM 1 patch WEEKLY NIXON Administration Dicyclomine HCl 20 mg 10/20/24 08:44 10/22/24 19:58 Dicyclomine Hcl 10 Mg Capsule PO 20 mg QID PRN Administration Abdominal Cramping Folic Acid 1 mg 10/19/24 09:00 10/25/24 09:53 Folic Acid 1 Mg/0.2 Ml Inj IV PUSH 1 mg QAM NIXON Administration Hydralazine HCl 20 mg 10/19/24 08:20 Hydralazine Hcl 20 Mg/Ml Vial IV PUSH Q4H PRN SBP more than 180 Hydroxyzine HCl 25 mg 10/20/24 12:45 10/25/24 02:15 Hydroxyzine Hcl 50 Mg/Ml Vial IM 25 mg Q4H PRN Administration Anxiety Thiamine HCl 300 mg/ Sodium 103 mls @ 206 mls/hr 10/19/24 09:00 10/25/24 10:52 Chloride IVPB Infused DAILY NIXON Infusion Metronidazole 500 mg in 100 mls @ 100 mls/hr 10/21/24 10:00 10/25/24 12:05 Flagyl 500 Mg/Iso Soln 100 Ml IVPB Infused Q8H NIXON Infusion Cefepime HCl 2 gm in 50 mls @ 100 mls/hr 10/22/24 11:00 10/25/24 12:22 Maxipime 2 Gm/Ns 50 Ml IVPB Infused Q12H NIXON Infusion Dextrose/Sodium Chloride 1,000 mls @ 75 mls/hr 10/25/24 09:40 Dextrose 5% Sodium Chloride 0.9% IV CONT .[id number] NIXON Labetalol HCl 10 mg 10/19/24 14:15 10/24/24 20:29 Labetalol Hcl Inj 100 Mg/20 Ml Vial IV PUSH 10 mg Q4H PRN Administration SBP > 180 -1st choce Lactulose 20 gm 10/21/24 09:40 10/25/24 10:02 Lactulose 20 Gm/30 Ml Udc PO 20 gm QAM NIXON Administration Lisinopril 40 mg 10/19/24 09:00 10/21/24 09:54 Lisinopril 20 Mg Tablet PO 40 mg QAM NIXON Administration Lorazepam 2 mg 10/23/24 21:43 10/24/24 20:21 Lorazepam Inj (*Crx) 2 Mg/Ml Vial IV PUSH 2 mg Q2H PRN Administration CIWA > 15 Lorazepam 2 mg 10/23/24 21:43 10/25/24 00:40 Lorazepam Inj (*Crx) 2 Mg/Ml Vial IV PUSH 2 mg Q4H PRN Administration CIWA 8-15 Nicotine Polacrilex 2 mg 10/22/24 22:58 10/22/24 23:13 Nicotine (*Pbkc) 2 Mg Gum PO 2 mg PRN PRN Administration Nicotine Cravings Ondansetron HCl 4 mg 10/18/24 21:09 10/21/24 14:06 Ondansetron Inj 4 Mg/2 Ml Vial IV PUSH 4 mg Q4H PRN Administration Nausea Oxycodone/Acetaminophen 1 tablet 10/20/24 09:09 10/25/24 06:25 Oxycodone/Acetaminophen (*Crx) 5-325 Mg Tablet PO 1 tablet Q4H PRN Administration Pain Rated 7-10 Polyethylene Glycol 17 gm 10/21/24 04:00 10/25/24 05:06 Polyethylene Glycol 3350 17 Gm Powd.Pack PO Not Given Q8HR NIXON Senna/Docusate Sodium 1 tab 10/20/24 21:00 10/24/24 20:18 Senna/Docusate Sodium Tablet PO 1 tab HS NIXON Administration Radiology Results: ITS Impressions Forearm X-Ray 10/18/24 16:37 IMPRESSION: No acute fracture or dislocation Chest X-Ray 10/18/24 21:11 IMPRESSION: 1. No acute cardiopulmonary disease. Head CT 10/19/24 05:45 Impression: No significant abnormality seen. Abdomen X-Ray 10/19/24 18:14 IMPRESSION: NO ACUTE ABDOMINAL FINDINGS. Abdomen/Pelvis CT 10/21/24 05:24 Impression: Probable gallbladder sludge and diffuse gallbladder wall thickening/edematous change. Correlate for acute cholecystitis. Consider ultrasound and/or HIDA scan for further evaluation. Air in urinary bladder, which may be iatrogenic. Correlate clinically. 2 mm nonobstructing left renal stone. Upper Quadrant Ultrasound 10/21/24 08:18 IMPRESSION: 1. Distended gallbladder with sludge. Severe gallbladder wall thickening may be seen with chronic liver disease or chronic cholecystitis. No sonographic Fernando's sign to suggest acute cholecystitis. If there is clinical concern for acute cholecystitis, consider hepatobiliary scintigraphy. Head/Neck CTA 10/22/24 06:50 Impression: No significant abnormality. Labs Labs: Laboratory Results - last 24 hr 10/25/24 05:01 WBC 12.5 H RBC 3.54 L Hgb 10.7 L Hct 34.5 L MCV 97.5 MCH 30.2 MCHC 31.0 L RDW 13.2 Plt Count 340 MPV 11.1 H Immature Gran % (Auto) 0.5 Neut % (Auto) 83.7 H Lymph % (Auto) 7.2 L [place] % (Auto) 6.9 Eos % (Auto) 1.5 Baso % (Auto) 0.2 Lymph # (Auto) 0.90 [place] # (Auto) 0.9 H Eos # (Auto) 0.2 Baso # (Auto) 0.0 Abs Immat Gran (auto) 0.06 H Absolute Neuts (auto) 10.5 H Absolute Nucleated RBC 0.000 Nucleated RBC % 0.0 Sodium 144 Potassium 3.4 Chloride 114 H Carbon Dioxide 21 L Anion Gap 9 BUN 29 H Creatinine 1.78 H Estim Creat Clear Calc 32 Estimated GFR 30 L Glucose 88 Calcium 8.2 L Total Bilirubin 0.8 AST 64 H ALT 43 H Alkaline Phosphatase 141 H Total Protein 6.0 L Albumin 2.9 L Quality VTE Prophylaxis VTE prophylaxis: pharmacologic ordered
[2024-10-25] MEDS: DEXTROSE 5%/0.9% SOD CHL 1,000 ML 75 ML IV CONT (13:56)
[2024-10-25] MEDS: HEPARIN SODIUM 5,000 UNITS/ML VIAL 5000 UNITS SUB-Q ×2 (14:00→22:33)
--- NOTE | 2024-10-25 15:00 | PM.PNGS ---
Progress Note: A&P Assessment and Plan (1) Cholecystitis: Code(s): K81.9 - Cholecystitis, unspecified Status: Acute Assessment and Plan: Patient has an abdominal ultrasound and CT scans of the abdomen/pelvis showing edema of the gallbladder wall and dilated gallbladder with gallbladder sludge. She continues to be agitated and confused making it difficult to get further imaging. Her abnormal findings of the gallbladder could also be chronic findings rather than findings of acute cholecystitis, therefore we have ordered a HIDA scan to further evaluate. They will attempt her HIDA scan again today, although she remains agitated. She is a poor surgical candidate and we would recommend to continue conservative management at this time. Even if she was found to have cystic duct obstruction, it would be difficult for her to have a cholecystostomy tube placed in her current state, let alone the concern of her pulling it out if they were able to get one placed in Radiology. Her WBC count is trending down over the past few days. Will continue to follow along for HIDA results. Continue IV antibiotics and she is NPO for the HIDA scan today. Plan I have discussed the patient's case and plan of care with Dr. Luong. Subjective Subjective Date/Time Seen: 10/25/24 10:00 Interval history: Patient seen this morning. She remains agitated and confused. She was able to tell me she was in the hospital, but would not directly answer any other questions that I asked. She had difficulty lying still even for an exam and would not follow instructions. She was unable to get her HIDA scan yesterday due to her agitation. They were going to attempt again today. WBC count coming down to 12.5. Exam Const: General: confusion and ill appearing Orientation/consciousness: confusion GI: Inspection: non-distended GI Palp: Yes Soft to palpation, No Guarding due to palpation present (GI), No Rebound tenderness present and Yes Other GI palpation findings present (exam limited due to her AMS, moaning and yelling w/ exam c/o focal TTP) Auscultation: Hypoactive bowel sounds present Objective Data Vital Signs Vital Signs: Vital Signs - 24 hr 10/24/24 16:00 10/24/24 18:00 10/24/24 20:00 Temperature 98.1 F Pulse Rate 69 70 Pulse Rate [Right Radial Palpation] 78 Respiratory Rate 18 Blood Pressure 143/67 H 180/80 H Pulse Oximetry 96 Oxygen Delivery 10/24/24 20:00 10/24/24 20:00 10/24/24 20:25 Temperature Pulse Rate 66 78 Pulse Rate [Right Radial Palpation] Respiratory Rate 20 Blood Pressure 180/80 H Pulse Oximetry 100 Oxygen Delivery Room Air 10/24/24 20:29 10/25/24 00:00 10/25/24 00:00 Temperature Pulse Rate 180 H 64 Pulse Rate [Right Radial Palpation] 63 Respiratory Rate Blood Pressure 163/68 H Pulse Oximetry Oxygen Delivery 10/25/24 04:00 10/25/24 04:00 10/25/24 08:00 Temperature Pulse Rate 71 76 Pulse Rate [Right Radial Palpation] 71 Respiratory Rate Blood Pressure Pulse Oximetry Oxygen Delivery 10/25/24 08:00 10/25/24 10:06 10/25/24 12:00 Temperature 97.8 F Pulse Rate 66 63 Pulse Rate [Right Radial Palpation] Respiratory Rate 16 Blood Pressure 178/68 H Pulse Oximetry 97 Oxygen Delivery Room Air Intake/Output Intake/Output: Intake & Output 10/22/24 10/23/24 10/24/24 10/25/24 23:59 23:59 23:59 23:59 Intake Total 2423 6100.1 603 1353 Balance 2423 6100.1 603 1353 Meds/Results Medications: Active Medications Generic Name Dose Route Start Last Admin Trade Name Freq PRN Reason Stop Dose Admin Acetaminophen 650 mg 10/19/24 00:31 10/22/24 22:49 Acetaminophen 325 Mg Tablet PO 650 mg Q4H PRN Administration Mild Pain (1-3) or Fever Al Hydrox/Mg Hydrox/Simethicone 30 ml 10/19/24 17:51 10/21/24 14:06 Mag Hydrox/Al Hydrox/Simeth 30 Ml Udc PO 30 ml Q6H PRN Administration Indigestion Amlodipine Besylate 10 mg 10/20/24 12:10 10/21/24 09:55 Amlodipine Besylate 10 Mg Tablet PO 10 mg DAILY NIXON Administration Aripiprazole 5 mg 10/25/24 09:00 10/25/24 09:58 Aripiprazole 5 Mg Tablet PO 5 mg DAILY NIXON Administration Aspirin 81 mg 10/19/24 09:00 10/25/24 10:02 Aspirin 81 Mg Enteric Tablet PO 81 mg QAM NIXON Administration Carvedilol 12.5 mg 10/20/24 21:00 10/21/24 09:54 Carvedilol 12.5 Mg Tablet PO 12.5 mg Q12HR NIXON Administration Chlordiazepoxide HCl 25 mg 10/24/24 14:42 10/24/24 18:02 Chlordiazepoxide (*Crx) 25 Mg Capsule PO 25 mg Q6H PRN Administration Withdrawal Clonidine HCl 0.1 mg 10/20/24 09:00 10/24/24 10:40 Clonidine Hcl 0.1 Mg Tablet PO Not Given Q12HR NIXON Clonidine HCl 1 patch 10/24/24 10:50 10/24/24 11:30 Clonidine 0.1 Mg/24 Hr Patch TRANSDERM 1 patch WEEKLY NIXON Administration Dicyclomine HCl 20 mg 10/20/24 08:44 10/22/24 19:58 Dicyclomine Hcl 10 Mg Capsule PO 20 mg QID PRN Administration Abdominal Cramping Folic Acid 1 mg 10/19/24 09:00 10/25/24 09:53 Folic Acid 1 Mg/0.2 Ml Inj IV PUSH 1 mg QAM NIXON Administration Heparin Sodium (Porcine) 5,000 units 10/25/24 14:00 10/25/24 14:00 Heparin Sodium 5,000 Units/Ml Vial SUB-Q 5,000 units Q8HR NIXON Administration Hydralazine HCl 20 mg 10/19/24 08:20 Hydralazine Hcl 20 Mg/Ml Vial IV PUSH Q4H PRN SBP more than 180 Hydroxyzine HCl 25 mg 10/20/24 12:45 10/25/24 02:15 Hydroxyzine Hcl 50 Mg/Ml Vial IM 25 mg Q4H PRN Administration Anxiety Thiamine HCl 300 mg/ Sodium 103 mls @ 206 mls/hr 10/19/24 09:00 10/25/24 10:52 Chloride IVPB Infused DAILY NIXON Infusion Metronidazole 500 mg in 100 mls @ 100 mls/hr 10/21/24 10:00 10/25/24 12:05 Flagyl 500 Mg/Iso Soln 100 Ml IVPB Infused Q8H NIXON Infusion Cefepime HCl 2 gm in 50 mls @ 100 mls/hr 10/22/24 11:00 10/25/24 12:22 Maxipime 2 Gm/Ns 50 Ml IVPB Infused Q12H NIXON Infusion Dextrose/Sodium Chloride 1,000 mls @ 75 mls/hr 10/25/24 09:40 10/25/24 13:56 Dextrose 5% Sodium Chloride 0.9% IV CONT 75 mls/hr .[id number] NIXON Administration Labetalol HCl 10 mg 10/19/24 14:15 10/24/24 20:29 Labetalol Hcl Inj 100 Mg/20 Ml Vial IV PUSH 10 mg Q4H PRN Administration SBP > 180 -1st choce Lactulose 20 gm 10/21/24 09:40 10/25/24 10:02 Lactulose 20 Gm/30 Ml Udc PO 20 gm QAM NIXON Administration Lisinopril 40 mg 10/19/24 09:00 10/21/24 09:54 Lisinopril 20 Mg Tablet PO 40 mg QAM NIXON Administration Lorazepam 2 mg 10/23/24 21:43 10/24/24 20:21 Lorazepam Inj (*Crx) 2 Mg/Ml Vial IV PUSH 2 mg Q2H PRN Administration CIWA > 15 Lorazepam 2 mg 10/23/24 21:43 10/25/24 00:40 Lorazepam Inj (*Crx) 2 Mg/Ml Vial IV PUSH 2 mg Q4H PRN Administration CIWA 8-15 Nicotine Polacrilex 2 mg 10/22/24 22:58 10/22/24 23:13 Nicotine (*Pbkc) 2 Mg Gum PO 2 mg PRN PRN Administration Nicotine Cravings Ondansetron HCl 4 mg 10/18/24 21:09 10/21/24 14:06 Ondansetron Inj 4 Mg/2 Ml Vial IV PUSH 4 mg Q4H PRN Administration Nausea Oxycodone/Acetaminophen 1 tablet 10/20/24 09:09 10/25/24 06:25 Oxycodone/Acetaminophen (*Crx) 5-325 Mg Tablet PO 1 tablet Q4H PRN Administration Pain Rated 7-10 Polyethylene Glycol 17 gm 10/21/24 04:00 10/25/24 14:18 Polyethylene Glycol 3350 17 Gm Powd.Pack PO Not Given Q8HR [facility] Senna/Docusate Sodium 1 tab 10/20/24 21:00 10/24/24 20:18 Senna/Docusate Sodium Tablet PO 1 tab HS [facility] Administration Radiology Results: ITS Impressions Forearm X-Ray 03/11/25 16:37 IMPRESSION: No acute fracture or dislocation Chest X-Ray 10/18/24 21:11 IMPRESSION: 1. No acute cardiopulmonary disease. Head CT 10/19/24 05:45 Impression: No significant abnormality seen. Abdomen X-Ray 10/19/24 18:14 IMPRESSION: NO ACUTE ABDOMINAL FINDINGS. Abdomen/Pelvis CT 10/21/24 05:24 Impression: Probable gallbladder sludge and diffuse gallbladder wall thickening/edematous change. Correlate for acute cholecystitis. Consider ultrasound and/or HIDA scan for further evaluation. Air in urinary bladder, which may be iatrogenic. Correlate clinically. 2 mm nonobstructing left renal stone. Upper Quadrant Ultrasound 10/21/24 08:18 IMPRESSION: 1. Distended gallbladder with sludge. Severe gallbladder wall thickening may be seen with chronic liver disease or chronic cholecystitis. No sonographic Fernando's sign to suggest acute cholecystitis. If there is clinical concern for acute cholecystitis, consider hepatobiliary scintigraphy. Head/Neck CTA 10/22/24 06:50 Impression: No significant abnormality. Labs Labs: Laboratory Results - last 24 hr 10/25/24 05:01 WBC 12.5 H RBC 3.54 L Hgb 10.7 L Hct 34.5 L MCV 97.5 MCH 30.2 MCHC 31.0 L RDW 13.2 Plt Count 340 MPV 11.1 H Immature Gran % (Auto) 0.5 Neut % (Auto) 83.7 H Lymph % (Auto) 7.2 L [place] % (Auto) 6.9 Eos % (Auto) 1.5 Baso % (Auto) 0.2 Lymph # (Auto) 0.90 [place] # (Auto) 0.9 H Eos # (Auto) 0.2 Baso # (Auto) 0.0 Abs Immat Gran (auto) 0.06 H Absolute Neuts (auto) 10.5 H Absolute Nucleated RBC 0.000 Nucleated RBC % 0.0 Sodium 144 Potassium 3.4 Chloride 114 H Carbon Dioxide 21 L Anion Gap 9 BUN 29 H Creatinine 1.78 H Estim Creat Clear Calc 32 Estimated GFR 30 L Glucose 88 Calcium 8.2 L Total Bilirubin 0.8 AST 64 H ALT 43 H Alkaline Phosphatase 141 H Total Protein 6.0 L Albumin 2.9 L
[2024-10-25 20:31] LABS: Creatine Kinase 219 U/L (30-135)
[2024-10-25 20:32] LABS: Ammonia < 9 umol/L (9-30)
[2024-10-25] MEDS: LACTATED RINGERS 1,000 ML 999 ML IV CONT (21:10)
[2024-10-26] VITALS (9 sets, daily range): BP systolic 180–191; BP diastolic 90–94; PULSE 65–87; RESP 16–17; TEMP 36.6–36.8; O2SAT 98–99
[2024-10-26] MEDS: LORazepam INJ (*CRX) 2 MG/ML VIAL IV PUSH ×5 (00:25→19:55)
[2024-10-26] MEDS: metroNIDAZOLE 500 MG/ISO 100ML 500 MG/100 ML BAG 100 MG IVPB ×3 (01:37→17:15)
[2024-10-26] MEDS: DEXTROSE 5%/0.9% SOD CHL 1,000 ML 75 ML IV CONT (05:13)
[2024-10-26] MEDS: HEPARIN SODIUM 5,000 UNITS/ML VIAL 5000 UNITS SUB-Q ×3 (05:15→22:53)
[2024-10-26 05:46] LABS: Basophils Percent Auto 0.3 % (0.2-1.2); Eosinophils Absolute Auto 0.5 K/mm3 (0-0.3); Hematocrit 33.9 % (37.0-47.0); Hemoglobin 10.6 g/dL (12.0-15.0); Immature Granulocyte Absolute 0.07 K/mm3 (0.00-0.031); Immature Granulocyte Percent A 0.4 % (0-0.5); Lymphocytes Absolute Auto 0.92 K/mm3 (0.9-3.2); Lymphocytes Percent Auto 5.8 % (18.3-44.2); Mean Corpuscular HGB Conc 31.3 g/dl (32-36); Mean Corpuscular Hemoglobin 30.1 pg (26-34); Mean Corpuscular Volume 96.3 fl (80-100); Mean Platelet Volume 10.9 fl (7.4-10.4); Monocytes Absolute Auto 0.9 K/mm3 (0.1-0.6); Monocytes Percent Auto 5.5 % (2.6-8.5); Neutrophils Absolute Auto 13.4 K/mm3 (1.3-6.7); Platelet Count Result 391 k/mm3 (150-375); Red Blood Count 3.52 M/mm3 (4.2-5.4); Red Cell Distribution Width 13.3 % (11.5-14.5); White Blood Count 15.8 K/mm3 (4.5-10.0)
[2024-10-26 05:49] LABS: Alanine Aminotransferase 46 U/L (6-35); Albumin Level 3.1 g/dL (3.5-5.1); Alkaline Phosphatase 205 U/L (38-126); Anion Gap 11 mmol/L (4-12); Aspartate Amino Transferase 54 U/L (14-36); Bilirubin,Total 0.5 mg/dL (0.2-1.3); Blood Urea Nitrogen 29 mg/dL (7-17); Calcium 8.6 mg/dL (8.4-10.2); Carbon Dioxide 21 mmol/L (22-30); Chloride 116 mmol/L (98-107); Estimated CRCL calculation 29 ml/min; Estimated Glomerular Filt Rate 28; Glucose 95 mg/dL (65-110); Magnesium 2.5 mg/dL (1.6-2.3); Potassium 3.4 mmol/L (3.4-5.0); Sodium 148 mmol/L (137-145)
[2024-10-26] MEDS: FOLIC ACID 1 MG/0.2 ML INJ IV PUSH (09:03)
[2024-10-26] MEDS: THIAMINE HCL INJ 300 MG in SODIUM CHLORIDE 0.9% IV 100 ML 206 MG IVPB (09:03)
[2024-10-26] MEDS: ASPIRIN 81 MG ENTERIC TABLET PO (09:32)
[2024-10-26] MEDS: ARIPiprazole 5 MG TABLET PO ×2 (09:32→13:56)
--- NOTE | 2024-10-26 10:18 | P.PNIM_ITS ---
Progress Note: A&P Assessment and Plan (1) Substance abuse: Code(s): F19.10 - Other psychoactive substance abuse, uncomplicated Status: Acute (2) Uncontrolled hypertension: Code(s): I10 - Essential (primary) hypertension Status: Acute (3) NSTEMI (non-ST elevated myocardial infarction): Code(s): I21.4 - Non-ST elevation (NSTEMI) myocardial infarction Status: Acute (4) Acute hypokalemia: Code(s): E87.6 - Hypokalemia Status: Acute (5) Alcohol abuse: Code(s): F10.10 - Alcohol abuse, uncomplicated Status: Acute (6) Cholecystitis: Code(s): K81.9 - Cholecystitis, unspecified Status: Acute Plan Substance abuse Pt drinking alcohol and UDS positive for Amphetamine CIWA pt scoring high s/p Librium tapering dose Thiamine and folic acid Lorazepam 2 mg q.4 hours p.r.n. for seizure Hydroxyzine 25 mg p.o. q.6 hours p.r.n. for anxiety Bentyl 20 mg p.o. q.6 hours p.r.n. for abdominal discomfort Hold Methocarbamol 500 mg p.o. q.6 hours p.r.n. for muscle spasm Hold Catapres 0.1 mg p.o. q.12 hours for HTN due to lower blood pressure Hold if BP less than 90/60 clonidine changed to patch Agitation ?Underlying psych disorder vs withdrawals Patient however is on 8th day of being sober and off drugs Continue PRN Ativan, stopped Librium Continue Aripiprazole at 10mg daily monitor and adjust Troponin elevation As per Cardiology -most likely as a result of her uncontrolled hypertension as well as the positive urine drug screen for methamphetamine -echocardiogram review normal biventricular systolic function with severe left ventricular hypertrophy HTN s/p Nitro drip Lisinopril 40mg PO QD, Clonidine 0.1mg PO BID, Coreg 12.5 mg PO BID,Amlodipine 10mg PO QD. Pt is out of icu changed to patch because she is not tolerating oral pills Cholecystitis US Abd:1. Distended gallbladder with sludge. Severe gallbladder wall thickening may be seen with chronic liver disease or chronic cholecystitis. No sonographic Fernando's sign to suggest acute cholecystitis. If there is clinical concern for acute cholecystitis, consider hepatobiliary scintigraphy. CT Abd/Pelvis:Probable gallbladder sludge and diffuse gallbladder wall thickening/edematous change. Correlate for acute cholecystitis. Consider u ltrasound and/or HIDA scan for further evaluation.Air in urinary bladder, which may be iatrogenic. Correlate clinically.2 mm nonobstructing left renal stone. Now on Cefepime and Flagyl HIDA and cholecystostomy held due to agitation as patient was unable to follow commands at HIDA exam and there is fear she may pull out the Cholecystostomy tube if placed. DVT prophylaxis on Sq Lovenox Subjective Date/time seen: 10/26/24 10:18 Interval history: Patient still alternating between afitation and somnolence Stop Librium, increased Aripiprazole to 10mg francisco Review of Systems Review of Systems: Pt is somnolent having high ciwa scores All systems reviewed & are unremarkable except as noted in HPI and below ROS unobtainable: Yes unobtainable due to medical condition and unobtainable due to mental status Exam Narrative: General: Pt is drowsy chronically ill and frail Lungs/Chest: Trachea central Clear BS B/L, No crackles or wheezing. Cardiac: RRR. Normal S1 S2. No murmurs Circulation: Pedal pulses are intact and symmetrical. Abdomen: Normal bowel sounds.. Soft. NT. ND. Extremities: No clubbing, cyanosis or edema. Warm : Daniel in place Neurologic: Drowsy Objective Data Vital Signs Vital Signs: Vital Signs - 24 hr 10/25/24 12:00 10/25/24 16:00 10/25/24 19:50 Temperature Pulse Rate 63 89 Pulse Rate [Right Radial Palpation] 72 Respiratory Rate Blood Pressure Pulse Oximetry Oxygen Delivery 10/25/24 20:00 10/25/24 20:00 10/25/24 22:45 Temperature 97.7 F Pulse Rate 71 67 Pulse Rate [Right Radial Palpation] Respiratory Rate 16 Blood Pressure 176/85 H Pulse Oximetry 98 Oxygen Delivery Room Air 10/26/24 00:00 10/26/24 00:00 10/26/24 03:49 Temperature Pulse Rate 87 Pulse Rate [Right Radial Palpation] 87 68 Respiratory Rate Blood Pressure Pulse Oximetry Oxygen Delivery 10/26/24 04:00 Temperature Pulse Rate 65 Pulse Rate [Right Radial Palpation] Respiratory Rate Blood Pressure Pulse Oximetry Oxygen Delivery Intake/Output Intake/Output: Intake & Output 10/23/24 10/24/24 10/25/24 10/26/24 23:59 23:59 23:59 23:59 Intake Total 6100.1 603 1503 1145 Balance 6100.1 603 1503 1145 Meds/Results Medications: Active Medications Generic Name Dose Route Start Last Admin Trade Name Freq PRN Reason Stop Dose Admin Acetaminophen 500 mg 10/25/24 19:58 Acetaminophen 500 Mg Tablet PO Q4H PRN Mild Pain (1-3) or Fever Al Hydrox/Mg Hydrox/Simethicone 30 ml 10/19/24 17:51 10/21/24 14:06 Mag Hydrox/Al Hydrox/Simeth 30 Ml Udc PO 30 ml Q6H PRN Administration Indigestion Amlodipine Besylate 10 mg 10/20/24 12:10 10/21/24 09:55 Amlodipine Besylate 10 Mg Tablet PO 10 mg DAILY NIXON Administration Aripiprazole 10 mg 10/27/24 09:00 Aripiprazole 5 Mg Tablet PO DAILY NIXON Aspirin 81 mg 10/19/24 09:00 10/26/24 09:32 Aspirin 81 Mg Enteric Tablet PO 81 mg QAM NIXON Administration Carvedilol 12.5 mg 10/20/24 21:00 10/21/24 09:54 Carvedilol 12.5 Mg Tablet PO 12.5 mg Q12HR NIXON Administration Clonidine HCl 0.1 mg 10/20/24 09:00 10/24/24 10:40 Clonidine Hcl 0.1 Mg Tablet PO Not Given Q12HR NIXON Clonidine HCl 1 patch 10/24/24 10:50 10/24/24 11:30 Clonidine 0.1 Mg/24 Hr Patch TRANSDERM 1 patch WEEKLY NIXON Administration Dicyclomine HCl 20 mg 10/20/24 08:44 10/22/24 19:58 Dicyclomine Hcl 10 Mg Capsule PO 20 mg QID PRN Administration Abdominal Cramping Folic Acid 1 mg 10/19/24 09:00 10/26/24 09:03 Folic Acid 1 Mg/0.2 Ml Inj IV PUSH 1 mg QAM NIXON Administration Heparin Sodium (Porcine) 5,000 units 10/25/24 14:00 10/26/24 05:15 Heparin Sodium 5,000 Units/Ml Vial SUB-Q 5,000 units Q8HR NIXON Administration Hydralazine HCl 20 mg 10/19/24 08:20 Hydralazine Hcl 20 Mg/Ml Vial IV PUSH Q4H PRN SBP more than 180 Hydroxyzine HCl 25 mg 10/20/24 12:45 10/25/24 02:15 Hydroxyzine Hcl 50 Mg/Ml Vial IM 25 mg Q4H PRN Administration Anxiety Thiamine HCl 300 mg/ Sodium 103 mls @ 206 mls/hr 10/19/24 09:00 10/26/24 09:03 Chloride IVPB 206 mls/hr DAILY NIXON Administration Metronidazole 500 mg in 100 mls @ 100 mls/hr 10/21/24 10:00 10/26/24 02:37 Flagyl 500 Mg/Iso Soln 100 Ml IVPB Infused Q8H NIXON Infusion Cefepime HCl 2 gm in 50 mls @ 100 mls/hr 10/22/24 11:00 10/25/24 23:04 Maxipime 2 Gm/Ns 50 Ml IVPB Infused Q12H NIXON Infusion Dextrose/Sodium Chloride 1,000 mls @ 75 mls/hr 10/25/24 09:40 10/26/24 05:13 Dextrose 5% Sodium Chloride 0.9% IV CONT 75 mls/hr .[id number] NIXON Administration Labetalol HCl 10 mg 10/19/24 14:15 10/24/24 20:29 Labetalol Hcl Inj 100 Mg/20 Ml Vial IV PUSH 10 mg Q4H PRN Administration SBP > 180 -1st choce Lactulose 20 gm 10/21/24 09:40 10/26/24 09:02 Lactulose 20 Gm/30 Ml Udc PO Not Given QAM NIXON Lisinopril 40 mg 10/19/24 09:00 10/21/24 09:54 Lisinopril 20 Mg Tablet PO 40 mg QAM NIXON Administration Lorazepam 2 mg 10/23/24 21:43 10/26/24 09:35 Lorazepam Inj (*Crx) 2 Mg/Ml Vial IV PUSH 2 mg Q2H PRN Administration CIWA > 15 Lorazepam 2 mg 10/23/24 21:43 10/25/24 00:40 Lorazepam Inj (*Crx) 2 Mg/Ml Vial IV PUSH 2 mg Q4H PRN Administration CIWA 8-15 Nicotine Polacrilex 2 mg 10/22/24 22:58 10/22/24 23:13 Nicotine (*Pbkc) 2 Mg Gum PO 2 mg PRN PRN Administration Nicotine Cravings Ondansetron HCl 4 mg 10/18/24 21:09 10/21/24 14:06 Ondansetron Inj 4 Mg/2 Ml Vial IV PUSH 4 mg Q4H PRN Administration Nausea Oxycodone/Acetaminophen 1 tablet 10/20/24 09:09 10/25/24 20:19 Oxycodone/Acetaminophen (*Crx) 5-325 Mg Tablet PO 1 tablet Q4H PRN Administration Pain Rated 7-10 Polyethylene Glycol 17 gm 10/21/24 04:00 10/26/24 05:15 Polyethylene Glycol 3350 17 Gm Powd.Pack PO Not Given Q8HR NIXON Senna/Docusate Sodium 1 tab 10/20/24 21:00 10/25/24 20:19 Senna/Docusate Sodium Tablet PO Not Given HS [facility] Radiology Results: ITS Impressions Forearm X-Ray 10/18/24 16:37 IMPRESSION: No acute fracture or dislocation Chest X-Ray 10/18/24 21:11 IMPRESSION: 1. No acute cardiopulmonary disease. Head CT 10/19/24 05:45 Impression: No significant abnormality seen. Abdomen X-Ray 10/19/24 18:14 IMPRESSION: NO ACUTE ABDOMINAL FINDINGS. Abdomen/Pelvis CT 10/21/24 05:24 Impression: Probable gallbladder sludge and diffuse gallbladder wall thickening/edematous change. Correlate for acute cholecystitis. Consider ultrasound and/or HIDA scan for further evaluation. Air in urinary bladder, which may be iatrogenic. Correlate clinically. 2 mm nonobstructing left renal stone. Upper Quadrant Ultrasound 10/21/24 08:18 IMPRESSION: 1. Distended gallbladder with sludge. Severe gallbladder wall thickening may be seen with chronic liver disease or chronic cholecystitis. No sonographic Fernando's sign to suggest acute cholecystitis. If there is clinical concern for acute cholecystitis, consider hepatobiliary scintigraphy. Head/Neck CTA 10/22/24 06:50 Impression: No significant abnormality. Labs Labs: Laboratory Results - last 24 hr 10/25/24 10/25/24 10/26/24 20:17 20:18 04:58 WBC 15.8 H RBC 3.52 L Hgb 10.6 L Hct 33.9 L MCV 96.3 MCH 30.1 MCHC 31.3 L RDW 13.3 Plt Count 391 H MPV 10.9 H Immature Gran % (Auto) 0.4 Neut % (Auto) 85.0 H Lymph % (Auto) 5.8 L [place] % (Auto) 5.5 Eos % (Auto) 3.0 Baso % (Auto) 0.3 Lymph # (Auto) 0.92 [place] # (Auto) 0.9 H Eos # (Auto) 0.5 H Baso # (Auto) 0.0 Abs Immat Gran (auto) 0.07 H Absolute Neuts (auto) 13.4 H Absolute Nucleated RBC 0.000 Nucleated RBC % 0.0 Sodium 148 H Potassium 3.4 Chloride 116 H Carbon Dioxide 21 L Anion Gap 11 BUN 29 H Creatinine 1.93 H Estim Creat Clear Calc 29 Estimated GFR 28 L Glucose 95 Calcium 8.6 Magnesium 2.5 H Total Bilirubin 0.5 AST 54 H ALT 46 H Alkaline Phosphatase 205 H Ammonia < 9 L Total Creatine Kinase 219 H Total Protein 6.0 L Albumin 3.1 L Quality VTE Prophylaxis VTE prophylaxis: pharmacologic ordered
[2024-10-26] MEDS: DEXTROSE 5% 1,000 ML 1,000 ML 100 ML IV CONT ×2 (11:02→22:56)
--- NOTE | 2024-10-26 11:04 | PCNFU ---
Nutrition Follow-Up Complete: Severe Protein Calorie Malnutrition as related to inadequate protein energy intake in the setting of acute disease as evidenced by < 75% of EER for > 7 days; moderate muscle wasting (temporalis) and moderate subcutaneous fat loss (orbital fat pads). Goal: Meet estimated nutritional needs. Patient is not meeting goal. Will continue current goal. Pt current nutrition is Regular. Nutrition recommendation: Ensure Enlive TID Last recorded weight is 62.6 kg, up from 58.2 kg on admit Bowel Motility: +BM reported 10/25 Labs Reviewed: Mg 2.5, BUN 29, GFR 28, Hgb 10.6, Hct 33.9 Meds Noted: Thiamine, Folic Acid, Dextrose Skin: WNL Additional Notes: Diet order has advanced today after being NPO x 5 days. Spoke with nursing, HIDA scan and cholecystostomy tube on hold. Patient is currently on a regular diet, needing assist with meals. Oral intake for breakfast approx. 50%. MD orders for Ensure Enlive TID for additional 350 kcal and 20 gm protein. Will monitor weight, labs, skin, diet orders, meds every 3 days.
--- NOTE | 2024-10-26 11:32 | PM.PNGS ---
Progress Note: A&P Assessment and Plan (1) Cholecystitis: Code(s): K81.9 - Cholecystitis, unspecified Status: Acute Assessment and Plan: Patient has an abdominal ultrasound and CT scans of the abdomen/pelvis showing edema of the gallbladder wall and dilated gallbladder with gallbladder sludge. She continues to be agitated and confused making it difficult to get further imaging. She is not able to tolerate a HIDA scan due to her inability to lie still and follow directions for the test. She is a poor surgical candidate given her other acute and chronic issues. We would recommend to continue conservative management with antibiotics for now and monitor. Okay to try advancing her to a low fat diet as tolerated. Plan I have discussed the patient's case and plan of care with Dr. Luong. Subjective Subjective Date/Time Seen: 10/26/24 11:32 Patient reports: afebrile Interval history: Patient seen this morning. She remains agitated and confused, and unable to answer questions. HIDA scan canceled yesterday as patient was unable to lie still for the scan. Exam Const: General: no acute distress Orientation/consciousness: confusion GI: Inspection: non-distended GI Palp: Yes Soft to palpation, Yes Tenderness to palpation present (GI) ( Exam limited due to agitation, moaning with palpation of abdomen) and No Guarding due to palpation present (GI) Auscultation: normal bowel sounds Objective Data Vital Signs Vital Signs: Vital Signs - 24 hr 10/25/24 12:00 10/25/24 16:00 10/25/24 19:50 Temperature Pulse Rate 63 89 Pulse Rate [Right Radial Palpation] 72 Respiratory Rate Blood Pressure Pulse Oximetry Oxygen Delivery 10/25/24 20:00 10/25/24 20:00 10/25/24 22:45 Temperature 97.7 F Pulse Rate 71 67 Pulse Rate [Right Radial Palpation] Respiratory Rate 16 Blood Pressure 176/85 H Pulse Oximetry 98 Oxygen Delivery Room Air 10/26/24 00:00 10/26/24 00:00 10/26/24 03:49 Temperature Pulse Rate 87 Pulse Rate [Right Radial Palpation] 87 68 Respiratory Rate Blood Pressure Pulse Oximetry Oxygen Delivery 10/26/24 04:00 10/26/24 09:30 Temperature Pulse Rate 65 Pulse Rate [Right Radial Palpation] Respiratory Rate Blood Pressure Pulse Oximetry Oxygen Delivery Room Air Intake/Output Intake/Output: Intake & Output 10/23/24 10/24/24 10/25/24 10/26/24 23:59 23:59 23:59 23:59 Intake Total 6100.1 603 1503 1145 Balance 6100.1 603 1503 1145 Meds/Results Medications: Active Medications Generic Name Dose Route Start Last Admin Trade Name Freq PRN Reason Stop Dose Admin Acetaminophen 500 mg 10/25/24 19:58 Acetaminophen 500 Mg Tablet PO Q4H PRN Mild Pain (1-3) or Fever Al Hydrox/Mg Hydrox/Simethicone 30 ml 10/19/24 17:51 10/21/24 14:06 Mag Hydrox/Al Hydrox/Simeth 30 Ml Udc PO 30 ml Q6H PRN Administration Indigestion Amlodipine Besylate 10 mg 10/20/24 12:10 10/21/24 09:55 Amlodipine Besylate 10 Mg Tablet PO 10 mg DAILY NIXON Administration Aripiprazole 10 mg 10/27/24 09:00 Aripiprazole 5 Mg Tablet PO DAILY NIXON Aspirin 81 mg 10/19/24 09:00 10/26/24 09:32 Aspirin 81 Mg Enteric Tablet PO 81 mg QAM NIXON Administration Carvedilol 12.5 mg 10/20/24 21:00 10/21/24 09:54 Carvedilol 12.5 Mg Tablet PO 12.5 mg Q12HR NIXON Administration Clonidine HCl 0.1 mg 10/20/24 09:00 10/24/24 10:40 Clonidine Hcl 0.1 Mg Tablet PO Not Given Q12HR NIXON Clonidine HCl 1 patch 10/24/24 10:50 10/24/24 11:30 Clonidine 0.1 Mg/24 Hr Patch TRANSDERM 1 patch WEEKLY NIXON Administration Dicyclomine HCl 20 mg 10/20/24 08:44 10/22/24 19:58 Dicyclomine Hcl 10 Mg Capsule PO 20 mg QID PRN Administration Abdominal Cramping Folic Acid 1 mg 10/19/24 09:00 10/26/24 09:03 Folic Acid 1 Mg/0.2 Ml Inj IV PUSH 1 mg QAM NIXON Administration Heparin Sodium (Porcine) 5,000 units 10/25/24 14:00 10/26/24 05:15 Heparin Sodium 5,000 Units/Ml Vial SUB-Q 5,000 units Q8HR NIXON Administration Hydralazine HCl 20 mg 10/19/24 08:20 Hydralazine Hcl 20 Mg/Ml Vial IV PUSH Q4H PRN SBP more than 180 Hydroxyzine HCl 25 mg 10/20/24 12:45 10/25/24 02:15 Hydroxyzine Hcl 50 Mg/Ml Vial IM 25 mg Q4H PRN Administration Anxiety Thiamine HCl 300 mg/ Sodium 103 mls @ 206 mls/hr 10/19/24 09:00 10/26/24 09:03 Chloride IVPB 206 mls/hr DAILY NIXON Administration Metronidazole 500 mg in 100 mls @ 100 mls/hr 10/21/24 10:00 10/26/24 11:02 Flagyl 500 Mg/Iso Soln 100 Ml IVPB 100 mls/hr Q8H NIXON Administration Cefepime HCl 2 gm in 50 mls @ 100 mls/hr 10/22/24 11:00 10/25/24 23:04 Maxipime 2 Gm/Ns 50 Ml IVPB Infused Q12H NIXON Infusion Dextrose 1,000 mls @ 100 mls/hr 10/26/24 10:25 10/26/24 11:02 Dextrose 5% 1,000 Ml IV CONT 100 mls/hr .Q10H NIXON Administration Labetalol HCl 10 mg 10/19/24 14:15 10/24/24 20:29 Labetalol Hcl Inj 100 Mg/20 Ml Vial IV PUSH 10 mg Q4H PRN Administration SBP > 180 -1st choce Lactulose 20 gm 10/21/24 09:40 10/26/24 09:02 Lactulose 20 Gm/30 Ml Udc PO Not Given QAM NIXON Lisinopril 40 mg 10/19/24 09:00 10/21/24 09:54 Lisinopril 20 Mg Tablet PO 40 mg QAM NIXON Administration Lorazepam 2 mg 10/23/24 21:43 10/26/24 09:35 Lorazepam Inj (*Crx) 2 Mg/Ml Vial IV PUSH 2 mg Q2H PRN Administration CIWA > 15 Lorazepam 2 mg 10/23/24 21:43 10/25/24 00:40 Lorazepam Inj (*Crx) 2 Mg/Ml Vial IV PUSH 2 mg Q4H PRN Administration CIWA 8-15 Nicotine Polacrilex 2 mg 10/22/24 22:58 10/22/24 23:13 Nicotine (*Pbkc) 2 Mg Gum PO 2 mg PRN PRN Administration Nicotine Cravings Ondansetron HCl 4 mg 10/18/24 21:09 10/21/24 14:06 Ondansetron Inj 4 Mg/2 Ml Vial IV PUSH 4 mg Q4H PRN Administration Nausea Oxycodone/Acetaminophen 1 tablet 10/20/24 09:09 10/25/24 20:19 Oxycodone/Acetaminophen (*Crx) 5-325 Mg Tablet PO 1 tablet Q4H PRN Administration Pain Rated 7-10 Polyethylene Glycol 17 gm 10/21/24 04:00 10/26/24 05:15 Polyethylene Glycol 3350 17 Gm Powd.Pack PO Not Given Q8HR NIXON Senna/Docusate Sodium 1 tab 10/20/24 21:00 10/25/24 20:19 Senna/Docusate Sodium Tablet PO Not Given HS [facility] Radiology Results: ITS Impressions Forearm X-Ray 10/18/24 16:37 IMPRESSION: No acute fracture or dislocation Chest X-Ray 10/18/24 21:11 IMPRESSION: 1. No acute cardiopulmonary disease. Head CT 10/19/24 05:45 Impression: No significant abnormality seen. Abdomen X-Ray 10/19/24 18:14 IMPRESSION: NO ACUTE ABDOMINAL FINDINGS. Abdomen/Pelvis CT 10/21/24 05:24 Impression: Probable gallbladder sludge and diffuse gallbladder wall thickening/edematous change. Correlate for acute cholecystitis. Consider ultrasound and/or HIDA scan for further evaluation. Air in urinary bladder, which may be iatrogenic. Correlate clinically. 2 mm nonobstructing left renal stone. Upper Quadrant Ultrasound 10/21/24 08:18 IMPRESSION: 1. Distended gallbladder with sludge. Severe gallbladder wall thickening may be seen with chronic liver disease or chronic cholecystitis. No sonographic Fernando's sign to suggest acute cholecystitis. If there is clinical concern for acute cholecystitis, consider hepatobiliary scintigraphy. Head/Neck CTA 10/22/24 06:50 Impression: No significant abnormality. Labs Labs: Laboratory Results - last 24 hr 10/25/24 10/25/24 10/26/24 20:17 20:18 04:58 WBC 15.8 H RBC 3.52 L Hgb 10.6 L Hct 33.9 L MCV 96.3 MCH 30.1 MCHC 31.3 L RDW 13.3 Plt Count 391 H MPV 10.9 H Immature Gran % (Auto) 0.4 Neut % (Auto) 85.0 H Lymph % (Auto) 5.8 L [place] % (Auto) 5.5 Eos % (Auto) 3.0 Baso % (Auto) 0.3 Lymph # (Auto) 0.92 [place] # (Auto) 0.9 H Eos # (Auto) 0.5 H Baso # (Auto) 0.0 Abs Immat Gran (auto) 0.07 H Absolute Neuts (auto) 13.4 H Absolute Nucleated RBC 0.000 Nucleated RBC % 0.0 Sodium 148 H Potassium 3.4 Chloride 116 H Carbon Dioxide 21 L Anion Gap 11 BUN 29 H Creatinine 1.93 H Estim Creat Clear Calc 29 Estimated GFR 28 L Glucose 95 Calcium 8.6 Magnesium 2.5 H Total Bilirubin 0.5 AST 54 H ALT 46 H Alkaline Phosphatase 205 H Ammonia < 9 L Total Creatine Kinase 219 H Total Protein 6.0 L Albumin 3.1 L
[2024-10-26] MEDS: CEFEPIME 2 GM/NS 50 ML 2 GM/50 ML BAG IVPB ×2 (12:23→22:55)
--- NOTE | 2024-10-26 15:33 | P.CONGI_ITS ---
Assessment and Plan Assessment and plan (1) Elevated liver enzymes: Code(s): R74.8 - Abnormal levels of other serum enzymes Status: Acute Assessment and Plan: I think this could be multifactorial, here with drug abuse, nstemi, alcoholic withdrawal (last use days prior to admission), uncontrolled BP and possible cholecystitis this is acute and mild elevated, normal bilirubin, hepatitis panel negative continue supportive care, patient needs to stop drinking/using drugs no further work up but recommend follow-up in office and repeat liver enzymes, if still high then we will reassess (2) Cholecystitis: Code(s): K81.9 - Cholecystitis, unspecified Status: Acute Assessment and Plan: treated with abx no candidate for surgery she was not cooperating for hida scan no plan for scopes (3) Alcohol withdrawal: Code(s): F10.939 - Alcohol use, unspecified with withdrawal, unspecified Status: Acute Assessment and Plan: ciwa protocol thiamine, nutrition support (4) Uncontrolled hypertension: Code(s): I10 - Essential (primary) hypertension Status: Acute (5) NSTEMI (non-ST elevated myocardial infarction): Code(s): I21.4 - Non-ST elevation (NSTEMI) myocardial infarction Status: Acute Assessment and Plan: medical management by cardiology (6) Substance abuse: Code(s): F19.10 - Other psychoactive substance abuse, uncomplicated Status: Acute GI Consult Note Consult date/time: 10/26/24 15:33 Reason for consult: elevated liver enzymes HPI: Elham eBnnett is a 48 year old female with istory of depression hypertension, cellulitis, drug abuse, alcohol abuse, smoking, COPD initially admitted to ICU about 1 week ago with nausea vomiting and weakness. History is obtained from records because she is obtunded after received ativan. She had HTN emergency and NSTEMI in setting of amphetamine use, admitted briefly to ICU and evaluated by cardiology. BP improved and moved to floor, also evaluated by surgery after imaging noted possible cholecystitis. Per notes, patient admitted day of admission 1 week ago that that she had quit drinking 11 days ago and since had nausea vomiting and weakness. Head CT which was negative for any significant abnormality. Initial labs showed a white blood cell count of 13.4, hemoglobin 15.8, INR 1.0, sodium 132, lipase was normal at 61. Respiratory panel was negative for influenza a and B, RSV, COVID. Urine drug screen was positive for methamphetamines. Noted mild elevated transaminases 50-60, normal bili, imaging with possible cholecystitis and treated with antibiotics, surgery on board. Hepatitis panel negative, liver enzymes previously were normal. She has been agitated/confused managed with CIWA protocol, librium, thiamine, etc. She is sleeping right now. She did not cooperate to get HIDA scan. Review of Systems 2 Review of Systems: ROS unobtainable: Yes unobtainable due to mental status [facility] Past Medical History Medical History (Updated 10/26/24 @ 15:42 by Isai Harrison MD) Elevated liver enzymes Depression (11/08/15) Cellulitis of foot Nicotine dependence, cigarettes, with unspecified nicotine-induced disorders JANAE (generalized anxiety disorder) Hypertension Surgical History Surgical History History of endometrial ablation History of tonsillectomy and adenoidectomy Family History Family History Mother JANAE (generalized anxiety disorder) COPD (chronic obstructive pulmonary disease) Hypertension Father Hypertension Lung cancer Bone cancer Brain tumor Social History Social History Smoking packs per day: 1 Smoking cigarettes per day: 20.0 Years smoked: 26 Smoking pack-years: 26.00 Smoking status: Current every day smoker Tobacco type: cigarettes Second hand tobacco smoke exposure: Yes Additional smoking assessment comments: She has smoked 1 pack of cigarettes per day since age 18. Alcohol intake: current Drinks per week: 1 Substance use: former Substance use type: marijuana, crack/cocaine and methamphetamine Last use: 10/08/2024 Do You Feel Safe in your Home?: Yes Lack of Transportation: YES Lack of Food: Often True Current Housing: I Have Housing Concerned About Future Housing: No Difficulty Paying Gas/Electric Bills: YES Difficulty Paying for Meds: No Currently Unemployed: YES Education: Trade/Vocational Certificate Difficulty w/ Childcare or Family Care: No Living arrangements: alone Additional living arrangements comments: She is been since 2019. She has 2 children. Her daughter moved out when her and her daughter now lives with her grandparents. 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 Her parents are planning to moved to assisted living March 2022. Occupation/Education: unemployed Gender identity (if verbalized by the patient): Female Spiritual care concerns: No Meds Home Medications and Allergies Home Medications ?Medication ?Instructions ?Recorded ?Confirmed ?Type albuterol sulfate 90 mcg/actuation 90 mcg inhalation Q4-6H PRN 02/14/22 10/18/24 History aerosol inhaler Shortness Of Breath Or Wheezing lisinopril 40 mg tablet 40 mg PO DAILY 02/14/22 10/18/24 History ondansetron HCl 4 mg tablet 4 mg PO Q8H PRN nausea and 12/27/22 10/18/24 Rx vomiting 4 days #10 tabs azithromycin 250 mg tablet 250 mg PO DAILY 10 days #10 tabs 12/28/22 10/18/24 Rx (Zithromax Z-Tristian) capsaicin 0.075 % topical cream 1 applic topical TID 1 week #57 12/28/22 10/18/24 Rx grams lorazepam 1 mg tablet (Ativan) 1 mg PO BID PRN nausea and 12/28/22 10/18/24 Rx vomiting #20 tabs metoclopramide HCl 5 mg tablet 5 mg PO DAILY 2 weeks #14 tabs 12/28/22 10/18/24 Rx (Reglan) Allergies Allergy/AdvReac Type Severity Reaction Status Date / Time penicillin G Allergy Severe mouth and Verified 10/21/24 09:06 throat swell latex Allergy Intermediate Unknown Verified 10/18/24 23:35 levofloxacin (Levaquin) Allergy Intermediate Itching Verified 10/18/24 23:35 Iodinated Contrast Media Allergy Mild sneezing, Verified 10/18/24 23:35 stuffy head mupirocin Allergy Rash Verified 10/18/24 23:35 Sulfa (Sulfonamide AdvReac Mild Nausea and Verified 10/18/24 23:35 Antibiotics) Vomiting Vital Signs Vital Signs - 24 hr 10/25/24 16:00 10/25/24 19:50 10/25/24 20:00 Temperature Pulse Rate 89 71 Pulse Rate [Right Radial Palpation] 72 Respiratory Rate Blood Pressure Pulse Oximetry Oxygen Delivery 10/25/24 20:00 10/25/24 22:45 10/26/24 00:00 Temperature 97.7 F Pulse Rate 67 Pulse Rate [Right Radial Palpation] 87 Respiratory Rate 16 Blood Pressure 176/85 H Pulse Oximetry 98 Oxygen Delivery Room Air 10/26/24 00:00 10/26/24 03:49 10/26/24 04:00 Temperature Pulse Rate 87 65 Pulse Rate [Right Radial Palpation] 68 Respiratory Rate Blood Pressure Pulse Oximetry Oxygen Delivery 10/26/24 09:30 10/26/24 12:00 Temperature Pulse Rate 69 Pulse Rate [Right Radial Palpation] Respiratory Rate Blood Pressure Pulse Oximetry Oxygen Delivery Room Air Exam 2 Const: General: no acute distress Orientation/consciousness: confusion HENMT: Face/Nose/Sinus: Normal nares present Eyes: Sclera: sclerae normal Neck: Neck: supple Resp: Effort & Inspection: normal respiratory effort Cardio: Rate: regular rate GI: Inspection: non-distended GI Palp: Yes Soft to palpation, Yes Tenderness to palpation present (GI) ( Exam limited due to agitation, moaning with palpation of abdomen) and No Guarding due to palpation present (GI) A uscultation: normal bowel sounds Skin: General skin exam: normal color Neuro: Other: moaning, sleepy Extrem: General: normal to inspection Psych: Other: agitated earlier Results Labs 10/26/24 04:58 10/26/24 04:58 Labs: Short CBC 10/26/24 Range/Units 04:58 WBC 15.8 H (4.5-10.0) K/mm3 Hgb 10.6 L (12.0-15.0) g/dL Hct 33.9 L (37.0-47.0) % Plt Count 391 H (150-375) k/mm3 [facility] 10/26/24 04:58 Sodium 148 H Potassium 3.4 Chloride 116 H Carbon Dioxide 21 L BUN 29 H Creatinine 1.93 H Glucose 95 Calcium 8.6 Cardiac Enzymes 10/25/24 Range/Units 20:18 Total Creatine Kinase 219 H (30-135) U/L Liver Function 10/26/24 Range/Units 04:58 Total Bilirubin 0.5 (0.2-1.3) mg/dL AST 54 H (14-36) U/L ALT 46 H (6-35) U/L Alkaline Phosphatase 205 H (38-126) U/L Albumin 3.1 L (3.5-5.1) g/dL
[2024-10-26] MEDS: LABETALOL HCL INJ 100 MG/20 ML VIAL 10 MG IV PUSH ×2 (17:09→23:32)
[2024-10-26] MEDS: SENNA/DOCUSATE SODIUM TABLET 1 TAB PO (22:54)
[2024-10-26] MEDS: polyethylene glycoL 3350 17 GM POWD.PACK PO (22:55)
[2024-10-27] VITALS (10 sets, daily range): BP systolic 164–172; BP diastolic 69–91; PULSE 57–79; RESP 16–17; TEMP 36.2–36.5; O2SAT 93–98
[2024-10-27] MEDS: LORazepam INJ (*CRX) 2 MG/ML VIAL IV PUSH (00:09)
[2024-10-27] MEDS: oxyCODONE/ACETAMINOPHEN (*CRX) 5-325 MG TABLET 1 TABLET PO ×3 (00:26→23:35)
[2024-10-27] MEDS: metroNIDAZOLE 500 MG/ISO 100ML 500 MG/100 ML BAG 100 MG IVPB ×3 (01:24→17:22)
[2024-10-27] MEDS: polyethylene glycoL 3350 17 GM POWD.PACK PO ×2 (06:32→20:35)
[2024-10-27] MEDS: HEPARIN SODIUM 5,000 UNITS/ML VIAL 5000 UNITS SUB-Q ×3 (06:32→20:39)
[2024-10-27 07:12] LABS: Basophils Percent Auto 0.4 % (0.2-1.2); Eosinophils Absolute Auto 0.6 K/mm3 (0-0.3); Eosinophils Percent Auto 5.7 % (0-4.4); Hematocrit 30.1 % (37.0-47.0); Hemoglobin 9.6 g/dL (12.0-15.0); Immature Granulocyte Absolute 0.06 K/mm3 (0.00-0.031); Immature Granulocyte Percent A 0.6 % (0-0.5); Lymphocytes Absolute Auto 1.42 K/mm3 (0.9-3.2); Mean Corpuscular HGB Conc 31.9 g/dl (32-36); Mean Corpuscular Hemoglobin 30.3 pg (26-34); Mean Platelet Volume 10.5 fl (7.4-10.4); Monocytes Absolute Auto 0.7 K/mm3 (0.1-0.6); Monocytes Percent Auto 6.6 % (2.6-8.5); Neutrophils Absolute Auto 7.4 K/mm3 (1.3-6.7); Neutrophils Percent Auto 72.7 % (45.5-73.1); Platelet Count Result 377 k/mm3 (150-375); Red Blood Count 3.17 M/mm3 (4.2-5.4); Red Cell Distribution Width 13.2 % (11.5-14.5); White Blood Count 10.2 K/mm3 (4.5-10.0)
[2024-10-27 07:18] LABS: Lactic Acid Reflex 0.6 mmol/L (0.7-2.0)
[2024-10-27 07:20] LABS: Alanine Aminotransferase 35 U/L (6-35); Albumin Level 2.8 g/dL (3.5-5.1); Alkaline Phosphatase 153 U/L (38-126); Anion Gap 6 mmol/L (4-12); Aspartate Amino Transferase 28 U/L (14-36); Bilirubin,Total 0.3 mg/dL (0.2-1.3); Blood Urea Nitrogen 27 mg/dL (7-17); Calcium 8.2 mg/dL (8.4-10.2); Carbon Dioxide 25 mmol/L (22-30); Chloride 113 mmol/L (98-107); Estimated CRCL calculation 33 ml/min; Estimated Glomerular Filt Rate 32; Glucose 113 mg/dL (65-110); Potassium 3.1 mmol/L (3.4-5.0); Sodium 144 mmol/L (137-145)
[2024-10-27] MEDS: FOLIC ACID 1 MG/0.2 ML INJ IV PUSH (08:09)
[2024-10-27] MEDS: THIAMINE HCL INJ 300 MG in SODIUM CHLORIDE 0.9% IV 100 ML 206 MG IVPB (08:09)
[2024-10-27] MEDS: ASPIRIN 81 MG ENTERIC TABLET PO (11:19)
[2024-10-27] MEDS: ARIPiprazole 5 MG TABLET 10 MG PO (11:20)
[2024-10-27] MEDS: DEXTROSE 5% 1,000 ML 1,000 ML 100 ML IV CONT ×2 (12:30→22:53)
[2024-10-27] MEDS: CEFEPIME 2 GM/NS 50 ML 2 GM/50 ML BAG IVPB ×2 (12:30→22:48)
--- NOTE | 2024-10-27 14:31 | P.PNGI_ITS ---
Progress Note: A&P Assessment and Plan (1) Elevated liver enzymes: Code(s): R74.8 - Abnormal levels of other serum enzymes Status: Acute Assessment and Plan: this probably was multifactorial but has improved with medical management will follow as needed (2) Cholecystitis: Code(s): K81.9 - Cholecystitis, unspecified Status: Acute Assessment and Plan: medical management no plan for surgery (3) Alcohol withdrawal: Code(s): F10.939 - Alcohol use, unspecified with withdrawal, unspecified Status: Acute Assessment and Plan: [facility] protocol Subjective Date/time seen: 10/27/24 14:31 Interval history: resting, sister at bedside, patient woke up just to eat small amount lunch Review of Systems Review of Systems: All systems reviewed & are unremarkable except as noted in HPI and below Exam Const: General: no acute distress Orientation/consciousness: confusion Other: resting HENMT: Face/Nose/Sinus: Normal nares present Eyes: Sclera: sclerae normal Neck: Neck: supple Resp: Effort & Inspection: normal respiratory effort Cardio: Rate: regular rate GI: Inspection: non-distended GI Palp: Yes Soft to palpation and No Guarding due to palpation present (GI) Auscultation: normal bowel sounds Skin: General skin exam: normal color Neuro: Other: sleeping but arousable Extrem: General: normal to inspection Psych: Other: drowsy Objective Data Vital Signs Vital Signs: Vital Signs - 24 hr 10/26/24 16:00 10/26/24 16:00 10/26/24 17:09 Temperature 97.9 F Pulse Rate 73 66 76 Respiratory Rate 17 Blood Pressure 180/90 H Pulse Oximetry 99 Oxygen Delivery 10/26/24 20:00 10/26/24 20:12 10/26/24 23:32 Temperature 98.2 F Pulse Rate 70 70 70 Respiratory Rate 16 Blood Pressure 191/94 H Pulse Oximetry 98 Oxygen Delivery 10/27/24 00:00 10/27/24 00:29 10/27/24 04:00 Temperature Pulse Rate 79 60 58 L Respiratory Rate Blood Pressure 164/69 H Pulse Oximetry Oxygen Delivery 10/27/24 06:33 10/27/24 08:00 10/27/24 08:00 Temperature 97.7 F Pulse Rate 70 62 Respiratory Rate 16 Blood Pressure 172/91 H Pulse Oximetry 93 Oxygen Delivery Room Air 10/27/24 12:00 Temperature Pulse Rate 61 Respiratory Rate Blood Pressure Pulse Oximetry Oxygen Delivery Intake/Output Intake/Output: Intake & Output 10/24/24 10/25/24 10/26/24 10/27/24 23:59 23:59 23:59 23:59 Intake Total 603 1503 2908 1873 Balance 603 1503 2908 1873 Meds/Results Medications: Active Medications Generic Name Dose Route Start Last Admin Trade Name Freq PRN Reason Stop Dose Admin Acetaminophen 500 mg 10/25/24 19:58 Acetaminophen 500 Mg Tablet PO Q4H PRN Mild Pain (1-3) or Fever Al Hydrox/Mg Hydrox/Simethicone 30 ml 10/19/24 17:51 10/21/24 14:06 Mag Hydrox/Al Hydrox/Simeth 30 Ml Udc PO 30 ml Q6H PRN Administration Indigestion Amlodipine Besylate 10 mg 10/20/24 12:10 10/21/24 09:55 Amlodipine Besylate 10 Mg Tablet PO 10 mg DAILY NIXON Administration Aripiprazole 10 mg 10/27/24 09:00 10/27/24 11:20 Aripiprazole 5 Mg Tablet PO 10 mg DAILY NIXON Administration Aspirin 81 mg 10/19/24 09:00 10/27/24 11:19 Aspirin 81 Mg Enteric Tablet PO 81 mg QAM NIXON Administration Carvedilol 12.5 mg 10/20/24 21:00 10/21/24 09:54 Carvedilol 12.5 Mg Tablet PO 12.5 mg Q12HR NIXON Administration Clonidine HCl 0.1 mg 10/20/24 09:00 10/24/24 10:40 Clonidine Hcl 0.1 Mg Tablet PO Not Given Q12HR NIXON Clonidine HCl 1 patch 10/24/24 10:50 10/24/24 11:30 Clonidine 0.1 Mg/24 Hr Patch TRANSDERM 1 patch WEEKLY NIXON Administration Dicyclomine HCl 20 mg 10/20/24 08:44 10/22/24 19:58 Dicyclomine Hcl 10 Mg Capsule PO 20 mg QID PRN Administration Abdominal Cramping Folic Acid 1 mg 10/19/24 09:00 10/27/24 08:09 Folic Acid 1 Mg/0.2 Ml Inj IV PUSH 1 mg QAM NIXON Administration Heparin Sodium (Porcine) 5,000 units 10/25/24 14:00 10/27/24 06:32 Heparin Sodium 5,000 Units/Ml Vial SUB-Q 5,000 units Q8HR NIXON Administration Hydralazine HCl 20 mg 10/19/24 08:20 Hydralazine Hcl 20 Mg/Ml Vial IV PUSH Q4H PRN SBP more than 180 Hydroxyzine HCl 25 mg 10/20/24 12:45 10/25/24 02:15 Hydroxyzine Hcl 50 Mg/Ml Vial IM 25 mg Q4H PRN Administration Anxiety Thiamine HCl 300 mg/ Sodium 103 mls @ 206 mls/hr 10/19/24 09:00 10/27/24 08:39 Chloride IVPB Infused DAILY NIXON Infusion Metronidazole 500 mg in 100 mls @ 100 mls/hr 10/21/24 10:00 10/27/24 11:41 Flagyl 500 Mg/Iso Soln 100 Ml IVPB Infused Q8H NIXON Infusion Cefepime HCl 2 gm in 50 mls @ 100 mls/hr 10/22/24 11:00 10/27/24 12:30 Maxipime 2 Gm/Ns 50 Ml IVPB 100 mls/hr Q12H NIXON Administration Dextrose 1,000 mls @ 100 mls/hr 10/26/24 10:25 10/27/24 12:30 Dextrose 5% 1,000 Ml IV CONT 100 mls/hr .Q10H NIXON Administration Labetalol HCl 10 mg 10/19/24 14:15 10/26/24 23:32 Labetalol Hcl Inj 100 Mg/20 Ml Vial IV PUSH 10 mg Q4H PRN Administration SBP > 180 -1st choce Lactulose 20 gm 10/21/24 09:40 10/27/24 10:52 Lactulose 20 Gm/30 Ml Udc PO Not Given QAM NIXON Lisinopril 40 mg 10/19/24 09:00 10/21/24 09:54 Lisinopril 20 Mg Tablet PO 40 mg QAM NIXON Administration Lorazepam 2 mg 10/23/24 21:43 10/27/24 00:09 Lorazepam Inj (*Crx) 2 Mg/Ml Vial IV PUSH 2 mg Q2H PRN Administration CIWA > 15 Lorazepam 2 mg 10/23/24 21:43 10/25/24 00:40 Lorazepam Inj (*Crx) 2 Mg/Ml Vial IV PUSH 2 mg Q4H PRN Administration CIWA 8-15 Nicotine Polacrilex 2 mg 10/22/24 22:58 10/22/24 23:13 Nicotine (*Pbkc) 2 Mg Gum PO 2 mg PRN PRN Administration Nicotine Cravings Ondansetron HCl 4 mg 10/18/24 21:09 10/21/24 14:06 Ondansetron Inj 4 Mg/2 Ml Vial IV PUSH 4 mg Q4H PRN Administration Nausea Oxycodone/Acetaminophen 1 tablet 10/20/24 09:09 10/27/24 00:26 Oxycodone/Acetaminophen (*Crx) 5-325 Mg Tablet PO 1 tablet Q4H PRN Administration Pain Rated 7-10 Polyethylene Glycol 17 gm 10/21/24 04:00 10/27/24 06:32 Polyethylene Glycol 3350 17 Gm Powd.Pack PO 17 gm Q8HR NIXON Administration Senna/Docusate Sodium 1 tab 10/20/24 21:00 10/26/24 22:54 Senna/Docusate Sodium Tablet PO 1 tab HS NIXON Administration Radiology Results: ITS Impressions Forearm X-Ray 10/18/24 16:37 IMPRESSION: No acute fracture or dislocation Chest X-Ray 10/18/24 21:11 IMPRESSION: 1. No acute cardiopulmonary disease. Head CT 10/19/24 05:45 Impression: No significant abnormality seen. Abdomen X-Ray 10/19/24 18:14 IMPRESSION: NO ACUTE ABDOMINAL FINDINGS. Abdomen/Pelvis CT 10/21/24 05:24 Impression: Probable gallbladder sludge and diffuse gallbladder wall thickening/edematous change. Correlate for acute cholecystitis. Consider ultrasound and/or HIDA scan for further evaluation. Air in urinary bladder, which may be iatrogenic. Correlate clinically. 2 mm nonobstructing left renal stone. Upper Quadrant Ultrasound 10/21/24 08:18 IMPRESSION: 1. Distended gallbladder with sludge. Severe gallbladder wall thickening may be seen with chronic liver disease or chronic cholecystitis. No sonographic Fernando's sign to suggest acute cholecystitis. If there is clinical concern for acute cholecystitis, consider hepatobiliary scintigraphy. Head/Neck CTA 10/22/24 06:50 Impression: No significant abnormality. Labs Labs: Laboratory Results - last 24 hr 10/27/24 07:02 WBC 10.2 H RBC 3.17 L Hgb 9.6 L Hct 30.1 L MCV 95.0 MCH 30.3 MCHC 31.9 L RDW 13.2 Plt Count 377 H MPV 10.5 H Immature Gran % (Auto) 0.6 H Neut % (Auto) 72.7 Lymph % (Auto) 14.0 L [place] % (Auto) 6.6 Eos % (Auto) 5.7 H Baso % (Auto) 0.4 Lymph # (Auto) 1.42 [place] # (Auto) 0.7 H Eos # (Auto) 0.6 H Baso # (Auto) 0.0 Abs Immat Gran (auto) 0.06 H Absolute Neuts (auto) 7.4 H Absolute Nucleated RBC 0.000 Nucleated RBC % 0.0 Sodium 144 Potassium 3.1 L Chloride 113 H Carbon Dioxide 25 Anion Gap 6 BUN 27 H Creatinine 1.71 H Estim Creat Clear Calc 33 Estimated GFR 32 L Glucose 113 H Lactic Acid 0.6 L Calcium 8.2 L Magnesium 2.0 Total Bilirubin 0.3 AST 28 ALT 35 Alkaline Phosphatase 153 H Total Protein 6.0 L Albumin 2.8 L
--- NOTE | 2024-10-27 15:39 | P.PNIM_ITS ---
Progress Note: A&P Assessment and Plan (1) Substance abuse: Code(s): F19.10 - Other psychoactive substance abuse, uncomplicated Status: Acute (2) Uncontrolled hypertension: Code(s): I10 - Essential (primary) hypertension Status: Acute (3) NSTEMI (non-ST elevated myocardial infarction): Code(s): I21.4 - Non-ST elevation (NSTEMI) myocardial infarction Status: Acute (4) Acute hypokalemia: Code(s): E87.6 - Hypokalemia Status: Acute (5) Alcohol abuse: Code(s): F10.10 - Alcohol abuse, uncomplicated Status: Acute (6) Cholecystitis: Code(s): K81.9 - Cholecystitis, unspecified Status: Acute Plan Substance abuse Pt drinking alcohol and UDS positive for Amphetamine CIWA pt scoring high s/p Librium tapering dose Thiamine and folic acid Lorazepam 2 mg q.4 hours p.r.n. for seizure Hydroxyzine 25 mg p.o. q.6 hours p.r.n. for anxiety Bentyl 20 mg p.o. q.6 hours p.r.n. for abdominal discomfort Hold Methocarbamol 500 mg p.o. q.6 hours p.r.n. for muscle spasm Hold Catapres 0.1 mg p.o. q.12 hours for HTN due to lower blood pressure Hold if BP less than 90/60 clonidine changed to patch Agitation ?Underlying psych disorder vs withdrawals Patient however is on 8th day of being sober and off drugs Continue PRN Ativan, stopped Librium Continue Aripiprazole at 10mg daily monitor and adjust Troponin elevation As per Cardiology -most likely as a result of her uncontrolled hypertension as well as the positive urine drug screen for methamphetamine -echocardiogram review normal biventricular systolic function with severe left ventricular hypertrophy HTN s/p Nitro drip Lisinopril 40mg PO QD, Clonidine 0.1mg PO BID, Coreg 12.5 mg PO BID,Amlodipine 10mg PO QD. monitor and adjust with clinc Cholecystitis US Abd:1. Distended gallbladder with sludge. Severe gallbladder wall thickening may be seen with chronic liver disease or chronic cholecystitis. No sonographic Fernando's sign to suggest acute cholecystitis. If there is clinical concern for acute cholecystitis, consider hepatobiliary scintigraphy. CT Abd/Pelvis:Probable gallbladder sludge and diffuse gallbladder wall thickening/edematous change. Correlate for acute cholecystitis. Consider ultrasound and/or HIDA scan for further evaluation.Air in urinary bladder, which may be iatrogenic. Correlate clinically.2 mm nonobstructing left renal stone. Now on Cefepime and Flagyl HIDA and cholecystostomy held due to agitation as patient was unable to follow commands at HIDA exam and there is fear she may pull out the Cholecystostomy tube if placed. Elevated liver enzymes Likely from alcohol and drug abuse resolving DVT prophylaxis on Sq Lovenox Subjective Date/time seen: 10/27/24 15:39 Interval history: Resting calmly at bedside Nurse noted patient is eating with being fed No surgical intervention for acute cholecystitis per surgery Review of Systems Review of Systems: Pt is somnolent having high ciwa scores All systems reviewed & are unremarkable except as noted in HPI and below ROS unobtainable: Yes unobtainable due to medical condition and unobtainable due to mental status Exam Narrative: General: Pt is drowsy chronically ill and frail Lungs/Chest: Trachea central Clear BS B/L, No crackles or wheezing. Cardiac: RRR. Normal S1 S2. No murmurs Circulation: Pedal pulses are intact and symmetrical. Abdomen: Normal bowel sounds.. Soft. NT. ND. Extremities: No clubbing, cyanosis or edema. Warm : Daniel in place Neurologic: Drowsy Objective Data Vital Signs Vital Signs: Vital Signs - 24 hr 10/26/24 16:00 10/26/24 16:00 10/26/24 17:09 Temperature 97.9 F Pulse Rate 73 66 76 Respiratory Rate 17 Blood Pressure 180/90 H Pulse Oximetry 99 Oxygen Delivery 10/26/24 20:00 10/26/24 20:12 10/26/24 23:32 Temperature 98.2 F Pulse Rate 70 70 70 Respiratory Rate 16 Blood Pressure 191/94 H Pulse Oximetry 98 Oxygen Delivery 10/27/24 00:00 10/27/24 00:29 10/27/24 04:00 Temperature Pulse Rate 79 60 58 L Respiratory Rate Blood Pressure 164/69 H Pulse Oximetry Oxygen Delivery 10/27/24 06:33 10/27/24 08:00 10/27/24 08:00 Temperature 97.7 F Pulse Rate 70 62 Respiratory Rate 16 Blood Pressure 172/91 H Pulse Oximetry 93 Oxygen Delivery Room Air 10/27/24 12:00 Temperature Pulse Rate 61 Respiratory Rate Blood Pressure Pulse Oximetry Oxygen Delivery Intake/Output Intake/Output: Intake & Output 10/24/24 10/25/24 10/26/24 10/27/24 23:59 23:59 23:59 23:59 Intake Total 603 1503 2908 1873 Balance 603 1503 2908 1873 Meds/Results Medications: Active Medications Generic Name Dose Route Start Last Admin Trade Name Freq PRN Reason Stop Dose Admin Acetaminophen 500 mg 10/25/24 19:58 Acetaminophen 500 Mg Tablet PO Q4H PRN Mild Pain (1-3) or Fever Al Hydrox/Mg Hydrox/Simethicone 30 ml 10/19/24 17:51 10/21/24 14:06 Mag Hydrox/Al Hydrox/Simeth 30 Ml Udc PO 30 ml Q6H PRN Administration Indigestion Amlodipine Besylate 10 mg 10/20/24 12:10 10/21/24 09:55 Amlodipine Besylate 10 Mg Tablet PO 10 mg DAILY NIXON Administration Aripiprazole 10 mg 10/27/24 09:00 10/27/24 11:20 Aripiprazole 5 Mg Tablet PO 10 mg DAILY NIXON Administration Aspirin 81 mg 10/19/24 09:00 10/27/24 11:19 Aspirin 81 Mg Enteric Tablet PO 81 mg QAM NIXON Administration Carvedilol 12.5 mg 10/20/24 21:00 10/21/24 09:54 Carvedilol 12.5 Mg Tablet PO 12.5 mg Q12HR NIXON Administration Clonidine HCl 0.1 mg 10/20/24 09:00 10/24/24 10:40 Clonidine Hcl 0.1 Mg Tablet PO Not Given Q12HR NIXON Clonidine HCl 1 patch 10/24/24 10:50 10/24/24 11:30 Clonidine 0.1 Mg/24 Hr Patch TRANSDERM 1 patch WEEKLY NIXON Administration Dicyclomine HCl 20 mg 10/20/24 08:44 10/22/24 19:58 Dicyclomine Hcl 10 Mg Capsule PO 20 mg QID PRN Administration Abdominal Cramping Folic Acid 1 mg 10/19/24 09:00 10/27/24 08:09 Folic Acid 1 Mg/0.2 Ml Inj IV PUSH 1 mg QAM NIXON Administration Heparin Sodium (Porcine) 5,000 units 10/25/24 14:00 10/27/24 14:29 Heparin Sodium 5,000 Units/Ml Vial SUB-Q 5,000 units Q8HR NIXON Administration Hydralazine HCl 20 mg 10/19/24 08:20 Hydralazine Hcl 20 Mg/Ml Vial IV PUSH Q4H PRN SBP more than 180 Hydroxyzine HCl 25 mg 10/20/24 12:45 10/25/24 02:15 Hydroxyzine Hcl 50 Mg/Ml Vial IM 25 mg Q4H PRN Administration Anxiety Thiamine HCl 300 mg/ Sodium 103 mls @ 206 mls/hr 10/19/24 09:00 10/27/24 08:39 Chloride IVPB Infused DAILY NIXON Infusion Metronidazole 500 mg in 100 mls @ 100 mls/hr 10/21/24 10:00 10/27/24 11:41 Flagyl 500 Mg/Iso Soln 100 Ml IVPB Infused Q8H NIXON Infusion Cefepime HCl 2 gm in 50 mls @ 100 mls/hr 10/22/24 11:00 10/27/24 12:30 Maxipime 2 Gm/Ns 50 Ml IVPB 100 mls/hr Q12H NIXON Administration Dextrose 1,000 mls @ 100 mls/hr 10/26/24 10:25 10/27/24 12:30 Dextrose 5% 1,000 Ml IV CONT 100 mls/hr .Q10H NIXON Administration Labetalol HCl 10 mg 10/19/24 14:15 10/26/24 23:32 Labetalol Hcl Inj 100 Mg/20 Ml Vial IV PUSH 10 mg Q4H PRN Administration SBP > 180 -1st choce Lactulose 20 gm 10/21/24 09:40 10/27/24 10:52 Lactulose 20 Gm/30 Ml Udc PO Not Given QAM NIXON Lisinopril 40 mg 10/19/24 09:00 10/21/24 09:54 Lisinopril 20 Mg Tablet PO 40 mg QAM NIXON Administration Lorazepam 2 mg 10/23/24 21:43 10/27/24 00:09 Lorazepam Inj (*Crx) 2 Mg/Ml Vial IV PUSH 2 mg Q2H PRN Administration CIWA > 15 Lorazepam 2 mg 10/23/24 21:43 10/25/24 00:40 Lorazepam Inj (*Crx) 2 Mg/Ml Vial IV PUSH 2 mg Q4H PRN Administration CIWA 8-15 Nicotine Polacrilex 2 mg 10/22/24 22:58 10/22/24 23:13 Nicotine (*Pbkc) 2 Mg Gum PO 2 mg PRN PRN Administration Nicotine Cravings Ondansetron HCl 4 mg 10/18/24 21:09 10/21/24 14:06 Ondansetron Inj 4 Mg/2 Ml Vial IV PUSH 4 mg Q4H PRN Administration Nausea Oxycodone/Acetaminophen 1 tablet 10/20/24 09:09 10/27/24 14:28 Oxycodone/Acetaminophen (*Crx) 5-325 Mg Tablet PO 1 tablet Q4H PRN Administration Pain Rated 7-10 Polyethylene Glycol 17 gm 10/21/24 04:00 10/27/24 14:29 Polyethylene Glycol 3350 17 Gm Powd.Pack PO Not Given Q8HR NIXON Senna/Docusate Sodium 1 tab 10/20/24 21:00 10/26/24 22:54 Senna/Docusate Sodium Tablet PO 1 tab HS NIXON Administration Radiology Results: ITS Impressions Forearm X-Ray 10/18/24 16:37 IMPRESSION: No acute fracture or dislocation Chest X-Ray 10/18/24 21:11 IMPRESSION: 1. No acute cardiopulmonary disease. Head CT 10/19/24 05:45 Impression: No significant abnormality seen. Abdomen X-Ray 10/19/24 18:14 IMPRESSION: NO ACUTE ABDOMINAL FINDINGS. Abdomen/Pelvis CT 10/21/24 05:24 Impression: Probable gallbladder sludge and diffuse gallbladder wall thickening/edematous change. Correlate for acute cholecystitis. Consider ultrasound and/or HIDA scan for further evaluation. Air in urinary bladder, which may be iatrogenic. Correlate clinically. 2 mm nonobstructing left renal stone. Upper Quadrant Ultrasound 10/21/24 08:18 IMPRESSION: 1. Distended gallbladder with sludge. Severe gallbladder wall thickening may be seen with chronic liver disease or chronic cholecystitis. No sonographic Fernando's sign to suggest acute cholecystitis. If there is clinical concern for acute cholecystitis, consider hepatobiliary scintigraphy. Head/Neck CTA 10/22/24 06:50 Impression: No significant abnormality. Labs Labs: Laboratory Results - last 24 hr 10/27/24 07:02 WBC 10.2 H RBC 3.17 L Hgb 9.6 L Hct 30.1 L MCV 95.0 MCH 30.3 MCHC 31.9 L RDW 13.2 Plt Count 377 H MPV 10.5 H Immature Gran % (Auto) 0.6 H Neut % (Auto) 72.7 Lymph % (Auto) 14.0 L [place] % (Auto) 6.6 Eos % (Auto) 5.7 H Baso % (Auto) 0.4 Lymph # (Auto) 1.42 [place] # (Auto) 0.7 H Eos # (Auto) 0.6 H Baso # (Auto) 0.0 Abs Immat Gran (auto) 0.06 H Absolute Neuts (auto) 7.4 H Absolute Nucleated RBC 0.000 Nucleated RBC % 0.0 Sodium 144 Potassium 3.1 L Chloride 113 H Carbon Dioxide 25 Anion Gap 6 BUN 27 H Creatinine 1.71 H Estim Creat Clear Calc 33 Estimated GFR 32 L Glucose 113 H Lactic Acid 0.6 L Calcium 8.2 L Magnesium 2.0 Total Bilirubin 0.3 AST 28 ALT 35 Alkaline Phosphatase 153 H Total Protein 6.0 L Albumin 2.8 L Quality VTE Prophylaxis VTE prophylaxis: pharmacologic ordered
[2024-10-27] MEDS: carvediloL 12.5 MG TABLET PO (20:36)
[2024-10-27] MEDS: SENNA/DOCUSATE SODIUM TABLET 1 TAB PO (20:36)
[2024-10-28] VITALS (13 sets, daily range): BP systolic 139–197; BP diastolic 63–94; PULSE 54–92; RESP 18; TEMP 36.1–37.2; O2SAT 96
[2024-10-28] MEDS: metroNIDAZOLE 500 MG/ISO 100ML 500 MG/100 ML BAG 100 MG IVPB ×2 (02:00→10:33)
[2024-10-28] MEDS: DICYCLOMINE HCL 10 MG CAPSULE 20 MG PO (02:51)
[2024-10-28] MEDS: hydrOXYzine HCL 10 MG TABLET PO (03:57)
[2024-10-28 05:16] LABS: Basophils Percent Auto 0.4 % (0.2-1.2); Eosinophils Absolute Auto 0.6 K/mm3 (0-0.3); Eosinophils Percent Auto 7.2 % (0-4.4); Hematocrit 29.1 % (37.0-47.0); Hemoglobin 9.5 g/dL (12.0-15.0); Immature Granulocyte Absolute 0.07 K/mm3 (0.00-0.031); Immature Granulocyte Percent A 0.9 % (0-0.5); Lymphocytes Absolute Auto 1.35 K/mm3 (0.9-3.2); Lymphocytes Percent Auto 17.3 % (18.3-44.2); Mean Corpuscular HGB Conc 32.6 g/dl (32-36); Mean Corpuscular Hemoglobin 30.7 pg (26-34); Mean Corpuscular Volume 94.2 fl (80-100); Monocytes Absolute Auto 0.6 K/mm3 (0.1-0.6); Monocytes Percent Auto 7.5 % (2.6-8.5); Neutrophils Absolute Auto 5.2 K/mm3 (1.3-6.7); Neutrophils Percent Auto 66.7 % (45.5-73.1); Platelet Count Result 404 k/mm3 (150-375); Red Blood Count 3.09 M/mm3 (4.2-5.4); Red Cell Distribution Width 13.4 % (11.5-14.5); White Blood Count 7.8 K/mm3 (4.5-10.0)
[2024-10-28 05:22] LABS: Alanine Aminotransferase 34 U/L (6-35); Albumin Level 2.9 g/dL (3.5-5.1); Alkaline Phosphatase 144 U/L (38-126); Anion Gap 8 mmol/L (4-12); Aspartate Amino Transferase 33 U/L (14-36); Bilirubin,Total 0.3 mg/dL (0.2-1.3); Blood Urea Nitrogen 21 mg/dL (7-17); Calcium 8.2 mg/dL (8.4-10.2); Carbon Dioxide 23 mmol/L (22-30); Chloride 109 mmol/L (98-107); Estimated CRCL calculation 41 ml/min; Estimated Glomerular Filt Rate 41; Glucose 103 mg/dL (65-110); Potassium 3.1 mmol/L (3.4-5.0); Sodium 140 mmol/L (137-145)
[2024-10-28] MEDS: HEPARIN SODIUM 5,000 UNITS/ML VIAL 5000 UNITS SUB-Q ×3 (05:35→20:49)
[2024-10-28] MEDS: oxyCODONE/ACETAMINOPHEN (*CRX) 5-325 MG TABLET 1 TABLET PO ×3 (05:35→15:42)
[2024-10-28] MEDS: polyethylene glycoL 3350 17 GM POWD.PACK PO ×2 (05:35→20:53)
[2024-10-28] MEDS: FOLIC ACID 1 MG/0.2 ML INJ IV PUSH (09:38)
[2024-10-28] MEDS: ARIPiprazole 5 MG TABLET 10 MG PO (09:38)
[2024-10-28] MEDS: ASPIRIN 81 MG ENTERIC TABLET PO (09:38)
[2024-10-28] MEDS: amLODIPine BESYLATE 10 MG TABLET PO (09:38)
[2024-10-28] MEDS: carvediloL 12.5 MG TABLET PO ×2 (09:38→20:51)
[2024-10-28] MEDS: LACTULOSE 20 GM/30 ML UDC PO (09:39)
[2024-10-28] MEDS: THIAMINE HCL INJ 300 MG in SODIUM CHLORIDE 0.9% IV 100 ML 206 MG IVPB (09:39)
--- NOTE | 2024-10-28 10:45 | PM.IMPN ---
Progress Note: A&P Assessment and Plan (1) Substance abuse: Code(s): F19.10 - Other psychoactive substance abuse, uncomplicated Status: Acute (2) Uncontrolled hypertension: Code(s): I10 - Essential (primary) hypertension Status: Acute (3) NSTEMI (non-ST elevated myocardial infarction): Code(s): I21.4 - Non-ST elevation (NSTEMI) myocardial infarction Status: Acute (4) Acute hypokalemia: Code(s): E87.6 - Hypokalemia Status: Acute (5) Alcohol abuse: Code(s): F10.10 - Alcohol abuse, uncomplicated Status: Acute (6) Cholecystitis: Code(s): K81.9 - Cholecystitis, unspecified Status: Acute Plan Substance abuse Pt drinking alcohol and UDS positive for Amphetamine CIWA pt scoring high s/p Librium tapering dose Thiamine and folic acid Lorazepam 2 mg q.4 hours p.r.n. for seizure Hydroxyzine 25 mg p.o. q.6 hours p.r.n. for anxiety Bentyl 20 mg p.o. q.6 hours p.r.n. for abdominal discomfort Hold Methocarbamol 500 mg p.o. q.6 hours p.r.n. for muscle spasm Hold Catapres 0.1 mg p.o. q.12 hours for HTN due to lower blood pressure Hold if BP less than 90/60 clonidine changed to patch Agitation, improving ?Underlying psych disorder vs withdrawals Patient however is on 8th day of being sober and off drugs Continue PRN Ativan, stopped Librium Continue Aripiprazole at 10mg daily monitor and adjust Troponin elevation As per Cardiology -most likely as a result of her uncontrolled hypertension as well as the positive urine drug screen for methamphetamine -echocardiogram review normal biventricular systolic function with severe left ventricular hypertrophy HTN s/p Nitro drip Lisinopril 40mg PO QD, Clonidine 0.1mg PO BID, Coreg 12.5 mg PO BID,Amlodipine 10mg PO QD. monitor and adjust with clinc Cholecystitis US Abd:1. Distended gallbladder with sludge. Severe gallbladder wall thickening may be seen with chronic liver disease or chronic cholecystitis. No sonographic Fernando's sign to suggest acute cholecystitis. If there is clinical concern for acute cholecystitis, consider hepatobiliary scintigraphy. CT Abd/Pelvis:Probable gallbladder sludge and diffuse gallbladder wall thickening/edematous change. Correlate for acute cholecystitis. Consider ultrasound and/or HIDA scan for further evaluation.Air in urinary bladder, which may be iatrogenic. Correlate clinically.2 mm nonobstructing left renal stone. Now on Cefepime and Flagyl Now that patient is less agitated, Gen surgery reconsulted about reconsidering for intervention Elevated liver enzymes, resolved Likely from alcohol and drug abuse resolving DVT prophylaxis on Sq Lovenox Subjective Date/time seen: 10/28/24 10:45 Interval history: patient awake and calm today asked Surgery to re-evaluate possible intervention since patient is no longer agitated Review of Systems Review of Systems: Pt is somnolent having high ciwa scores All systems reviewed & are unremarkable except as noted in HPI and below ROS unobtainable: Yes unobtainable due to medical condition and unobtainable due to mental status Exam Narrative: General: Pt is drowsy chronically ill and frail Lungs/Chest: Trachea central Clear BS B/L, No crackles or wheezing. Cardiac: RRR. Normal S1 S2. No murmurs Circulation: Pedal pulses are intact and symmetrical. Abdomen: Normal bowel sounds.. Soft. NT. ND. Extremities: No clubbing, cyanosis or edema. Warm : Daniel in place Neurologic: Drowsy Objective Data Vital Signs Vital Signs: Vital Signs - 24 hr 10/27/24 12:00 10/27/24 16:00 10/27/24 16:00 Temperature 97.6 F Pulse Rate 61 61 74 Pulse Rate [Right Radial Palpation] Respiratory Rate 17 Blood Pressure 168/88 H Pulse Oximetry 96 10/27/24 20:00 10/27/24 20:33 10/27/24 20:36 Temperature 97.2 F L Pulse Rate 60 57 L 58 L Pulse Rate [Right Radial Palpation] Respiratory Rate 16 Blood Pressure 170/90 H Pulse Oximetry 98 10/28/24 00:00 10/28/24 04:00 10/28/24 05:18 Temperature 97 F L Pulse Rate 57 L 64 61 Pulse Rate [Right Radial Palpation] Respiratory Rate 18 Blood Pressure 178/87 H Pulse Oximetry 96 10/28/24 08:00 10/28/24 09:34 10/28/24 09:38 Temperature Pulse Rate 88 Pulse Rate [Right Radial Palpation] 88 Respiratory Rate Blood Pressure 168/94 H Pulse Oximetry Intake/Output Intake/Output: Intake & Output 10/25/24 10/26/24 10/27/24 10/28/24 23:59 23:59 23:59 23:59 Intake Total 1503 2908 3553 523 Balance 1503 2908 3553 523 Meds/Results Medications: Active Medications Generic Name Dose Route Start Last Admin Trade Name Freq PRN Reason Stop Dose Admin Acetaminophen 500 mg 10/25/24 19:58 Acetaminophen 500 Mg Tablet PO Q4H PRN Mild Pain (1-3) or Fever Al Hydrox/Mg Hydrox/Simethicone 30 ml 10/19/24 17:51 10/21/24 14:06 Mag Hydrox/Al Hydrox/Simeth 30 Ml Udc PO 30 ml Q6H PRN Administration Indigestion Amlodipine Besylate 10 mg 10/20/24 12:10 10/28/24 09:38 Amlodipine Besylate 10 Mg Tablet PO 10 mg DAILY NIXON Administration Aripiprazole 10 mg 10/27/24 09:00 10/28/24 09:38 Aripiprazole 5 Mg Tablet PO 10 mg DAILY NIXON Administration Aspirin 81 mg 10/19/24 09:00 10/28/24 09:38 Aspirin 81 Mg Enteric Tablet PO 81 mg QAM NIXON Administration Carvedilol 12.5 mg 10/20/24 21:00 10/28/24 09:38 Carvedilol 12.5 Mg Tablet PO 12.5 mg Q12HR NIXON Administration Clonidine HCl 0.1 mg 10/20/24 09:00 10/24/24 10:40 Clonidine Hcl 0.1 Mg Tablet PO Not Given Q12HR NIXON Clonidine HCl 1 patch 10/24/24 10:50 10/24/24 11:30 Clonidine 0.1 Mg/24 Hr Patch TRANSDERM 1 patch WEEKLY NIXON Administration Dicyclomine HCl 20 mg 10/20/24 08:44 10/28/24 02:51 Dicyclomine Hcl 10 Mg Capsule PO 20 mg QID PRN Administration Abdominal Cramping Folic Acid 1 mg 10/19/24 09:00 10/28/24 09:38 Folic Acid 1 Mg/0.2 Ml Inj IV PUSH 1 mg QAM NIXON Administration Heparin Sodium (Porcine) 5,000 units 10/25/24 14:00 10/28/24 05:35 Heparin Sodium 5,000 Units/Ml Vial SUB-Q 5,000 units Q8HR NIXON Administration Hydralazine HCl 20 mg 10/19/24 08:20 Hydralazine Hcl 20 Mg/Ml Vial IV PUSH Q4H PRN SBP more than 180 Thiamine HCl 300 mg/ Sodium 103 mls @ 206 mls/hr 10/19/24 09:00 10/28/24 10:09 Chloride IVPB Infused DAILY NIXON Infusion Metronidazole 500 mg in 100 mls @ 100 mls/hr 10/21/24 10:00 10/28/24 10:33 Flagyl 500 Mg/Iso Soln 100 Ml IVPB 100 mls/hr Q8H NIXON Administration Cefepime HCl 2 gm in 50 mls @ 100 mls/hr 10/22/24 11:00 10/27/24 23:20 Maxipime 2 Gm/Ns 50 Ml IVPB Infused Q12H NIXON Infusion Labetalol HCl 10 mg 10/19/24 14:15 10/26/24 23:32 Labetalol Hcl Inj 100 Mg/20 Ml Vial IV PUSH 10 mg Q4H PRN Administration SBP > 180 -1st choce Lactulose 20 gm 10/21/24 09:40 10/28/24 09:39 Lactulose 20 Gm/30 Ml Udc PO 20 gm QAM NIXON Administration Lisinopril 40 mg 10/19/24 09:00 10/21/24 09:54 Lisinopril 20 Mg Tablet PO 40 mg QAM NIXON Administration Lorazepam 2 mg 10/23/24 21:43 10/27/24 00:09 Lorazepam Inj (*Crx) 2 Mg/Ml Vial IV PUSH 2 mg Q2H PRN Administration CIWA > 15 Lorazepam 2 mg 10/23/24 21:43 10/25/24 00:40 Lorazepam Inj (*Crx) 2 Mg/Ml Vial IV PUSH 2 mg Q4H PRN Administration CIWA 8-15 Nicotine Polacrilex 2 mg 10/22/24 22:58 10/22/24 23:13 Nicotine (*Pbkc) 2 Mg Gum PO 2 mg PRN PRN Administration Nicotine Cravings Ondansetron HCl 4 mg 10/18/24 21:09 10/21/24 14:06 Ondansetron Inj 4 Mg/2 Ml Vial IV PUSH 4 mg Q4H PRN Administration Nausea Oxycodone/Acetaminophen 1 tablet 10/20/24 09:09 10/28/24 09:41 Oxycodone/Acetaminophen (*Crx) 5-325 Mg Tablet PO 1 tablet Q4H PRN Administration Pain Rated 7-10 Polyethylene Glycol 17 gm 10/21/24 04:00 10/28/24 05:35 Polyethylene Glycol 3350 17 Gm Powd.Pack PO 17 gm Q8HR NIXON Administration Senna/Docusate Sodium 1 tab 10/20/24 21:00 10/27/24 20:36 Senna/Docusate Sodium Tablet PO 1 tab HS NIXON Administration Radiology Results: ITS Impressions Forearm X-Ray 10/18/24 16:37 IMPRESSION: No acute fracture or dislocation Chest X-Ray 10/18/24 21:11 IMPRESSION: 1. No acute cardiopulmonary disease. Head CT 10/19/24 05:45 Impression: No significant abnormality seen. Abdomen X-Ray 10/19/24 18:14 IMPRESSION: NO ACUTE ABDOMINAL FINDINGS. Abdomen/Pelvis CT 10/21/24 05:24 Impression: Probable gallbladder sludge and diffuse gallbladder wall thickening/edematous change. Correlate for acute cholecystitis. Consider ultrasound and/or HIDA scan for further evaluation. Air in urinary bladder, which may be iatrogenic. Correlate clinically. 2 mm nonobstructing left renal stone. Upper Quadrant Ultrasound 10/21/24 08:18 IMPRESSION: 1. Distended gallbladder with sludge. Severe gallbladder wall thickening may be seen with chronic liver disease or chronic cholecystitis. No sonographic Fernando's sign to suggest acute cholecystitis. If there is clinical concern for acute cholecystitis, consider hepatobiliary scintigraphy. Head/Neck CTA 10/22/24 06:50 Impression: No significant abnormality. Labs Labs: Laboratory Results - last 24 hr 10/28/24 04:30 WBC 7.8 RBC 3.09 L Hgb 9.5 L Hct 29.1 L MCV 94.2 MCH 30.7 MCHC 32.6 RDW 13.4 Plt Count 404 H MPV 11.0 H Immature Gran % (Auto) 0.9 H Neut % (Auto) 66.7 Lymph % (Auto) 17.3 L [place] % (Auto) 7.5 Eos % (Auto) 7.2 H Baso % (Auto) 0.4 Lymph # (Auto) 1.35 [place] # (Auto) 0.6 Eos # (Auto) 0.6 H Baso # (Auto) 0.0 Abs Immat Gran (auto) 0.07 H Absolute Neuts (auto) 5.2 Absolute Nucleated RBC 0.000 Nucleated RBC % 0.0 Sodium 140 Potassium 3.1 L Chloride 109 H Carbon Dioxide 23 Anion Gap 8 BUN 21 H Creatinine 1.36 H Estim Creat Clear Calc 41 Estimated GFR 41 L Glucose 103 Calcium 8.2 L Total Bilirubin 0.3 AST 33 ALT 34 Alkaline Phosphatase 144 H Total Protein 6.0 L Albumin 2.9 L Quality VTE Prophylaxis VTE prophylaxis: pharmacologic ordered
--- NOTE | 2024-10-28 11:34 | PCNFU ---
Nutrition Follow-Up Complete: Severe Protein Calorie Malnutrition as related to inadequate protein energy intake in the setting of acute disease as evidenced by < 75% of EER for > 7 days; moderate muscle wasting (temporalis) and moderate subcutaneous fat loss (orbital fat pads). Goal: Meet estimated nutritional needs. Patient is progressing towards goal. We will continue current goal. Pt current nutrition is Regular with diet supplements TID. Last recorded weight is 66.3 kg, up from 58.2 kg on admit. Bowel Motility: +BM reported 10/28 Labs Reviewed: BUN 21, GFR 41, K 3.1, Cr 1.36, Alb 2.9 Meds Noted:Thiamine, Folic Acid, Miralax, Lactulose. Skin: WNL Additional Notes: Patient remains on a regular diet. Oral Intake improving to about 50% of meals. She is eating the Nutritional Ice Cream (300 kcal and 9 gm protein). Agree with diet orders. Will monitor weight, labs, skin, diet orders, meds every 5 days.
[2024-10-28] MEDS: CEFDINIR 300 MG CAPSULE PO ×2 (13:31→20:50)
[2024-10-28] MEDS: metroNIDAZOLE 500 MG TABLET PO ×2 (15:42→20:50)
[2024-10-28 17:12] LABS: Glucose Point of Care 90 mg/dl (65-105)
[2024-10-28] MEDS: MORPHINE SULFATE (*CRX) 2 MG/ML INJ IV PUSH (20:47)
[2024-10-28] MEDS: SENNA/DOCUSATE SODIUM TABLET 1 TAB PO (20:50)
[2024-10-28] MEDS: cloNIDine HCL 0.1 MG TABLET PO (20:52)
[2024-10-29] VITALS (13 sets, daily range): BP systolic 126–151; BP diastolic 62–97; PULSE 48–102; RESP 14–18; TEMP 36.4–37.5; O2SAT 95–97
[2024-10-29] MEDS: oxyCODONE/ACETAMINOPHEN (*CRX) 5-325 MG TABLET 1 TABLET PO ×2 (02:12→10:22)
[2024-10-29] MEDS: HEPARIN SODIUM 5,000 UNITS/ML VIAL 5000 UNITS SUB-Q ×3 (06:20→21:58)
[2024-10-29] MEDS: metroNIDAZOLE 500 MG TABLET PO ×3 (06:21→21:56)
[2024-10-29] MEDS: polyethylene glycoL 3350 17 GM POWD.PACK PO ×3 (06:22→21:57)
[2024-10-29 06:59] LABS: Basophils Percent Auto 0.5 % (0.2-1.2); Eosinophils Absolute Auto 0.5 K/mm3 (0-0.3); Eosinophils Percent Auto 5.7 % (0-4.4); Hematocrit 33.2 % (37.0-47.0); Hemoglobin 10.8 g/dL (12.0-15.0); Immature Granulocyte Absolute 0.06 K/mm3 (0.00-0.031); Immature Granulocyte Percent A 0.7 % (0-0.5); Lymphocytes Absolute Auto 1.17 K/mm3 (0.9-3.2); Lymphocytes Percent Auto 13.8 % (18.3-44.2); Mean Corpuscular HGB Conc 32.5 g/dl (32-36); Mean Corpuscular Hemoglobin 30.4 pg (26-34); Mean Corpuscular Volume 93.5 fl (80-100); Mean Platelet Volume 10.4 fl (7.4-10.4); Monocytes Absolute Auto 0.8 K/mm3 (0.1-0.6); Monocytes Percent Auto 9.2 % (2.6-8.5); Neutrophils Percent Auto 70.1 % (45.5-73.1); Platelet Count Result 434 k/mm3 (150-375); Red Blood Count 3.55 M/mm3 (4.2-5.4); Red Cell Distribution Width 13.3 % (11.5-14.5); White Blood Count 8.5 K/mm3 (4.5-10.0)
[2024-10-29 07:10] LABS: Alanine Aminotransferase 58 U/L (6-35); Albumin Level 3.1 g/dL (3.5-5.1); Alkaline Phosphatase 162 U/L (38-126); Anion Gap 10 mmol/L (4-12); Aspartate Amino Transferase 107 U/L (14-36); Bilirubin,Total 0.3 mg/dL (0.2-1.3); Blood Urea Nitrogen 19 mg/dL (7-17); Calcium 8.3 mg/dL (8.4-10.2); Carbon Dioxide 25 mmol/L (22-30); Chloride 108 mmol/L (98-107); Estimated CRCL calculation 32 ml/min; Estimated Glomerular Filt Rate 30; Glucose 79 mg/dL (65-110); Magnesium 1.7 mg/dL (1.6-2.3); Potassium 3.3 mmol/L (3.4-5.0); Sodium 143 mmol/L (137-145)
--- NOTE | 2024-10-29 09:27 | PM.IMPN ---
Progress Note: A&P Assessment and Plan (1) Substance abuse: Code(s): F19.10 - Other psychoactive substance abuse, uncomplicated Status: Acute (2) Uncontrolled hypertension: Code(s): I10 - Essential (primary) hypertension Status: Acute (3) NSTEMI (non-ST elevated myocardial infarction): Code(s): I21.4 - Non-ST elevation (NSTEMI) myocardial infarction Status: Acute (4) Acute hypokalemia: Code(s): E87.6 - Hypokalemia Status: Acute (5) Alcohol abuse: Code(s): F10.10 - Alcohol abuse, uncomplicated Status: Acute (6) Cholecystitis: Code(s): K81.9 - Cholecystitis, unspecified Status: Acute Plan Substance abuse Pt drinking alcohol and UDS positive for Amphetamine CIWA pt scoring high s/p Librium and Hydroxyxine Thiamine and folic acid Lorazepam 1 mg q.4 hours p.r.n. for seizure, taper off monitor Agitation, improving ?Underlying psych disorder vs withdrawals Patient however is on 8th day of being sober and off drugs Continue PRN Ativan, stopped Librium Continue Aripiprazole at 5mg daily, decreased from 10mg due to somnolence monitor and adjust Troponin elevation As per Cardiology -most likely as a result of her uncontrolled hypertension as well as the positive urine drug screen for methamphetamine -echocardiogram review normal biventricular systolic function with severe left ventricular hypertrophy HTN s/p Nitro drip Clonidine 0.1mg PO BID, Coreg 12.5 mg PO BID,Amlodipine 10mg PO QD. Lisinopril 40mg PO in hold due to OMAIRA monitor and adjust with clinic Cholecystitis US Abd:1. Distended gallbladder with sludge. Severe gallbladder wall thickening may be seen with chronic liver disease or chronic cholecystitis. No sonographic Fernando's sign to suggest acute cholecystitis. If there is clinical concern for acute cholecystitis, consider hepatobiliary scintigraphy. CT Abd/Pelvis:Probable gallbladder sludge and diffuse gallbladder wall thickening/edematous change. Correlate for acute cholecystitis. Consider ultrasound and/or HIDA scan for further evaluation.Air in urinary bladder, which may be iatrogenic. Correlate clinically.2 mm nonobstructing left renal stone. S/p Cefepime and Flagyl, now on PO Cefdinir and Flagyl Plan is to complete 14 days of total antibiotics Liver enzymes resolved Surgery recommended no intervention Elevated liver enzymes, resolved Likely from alcohol and drug abuse resolving OMAIRA Cr 1.78, baseline normal restarted on IVF and monitor Lisinopril on hol d encourage oral intake DVT prophylaxis on Sq Lovenox Awaiting resolution of OMAIRA for discharge Subjective Date/time seen: 10/29/24 09:27 Interval history: Patient still lethargic but no agitation Will decreased Abilify to 5mg from 10mg Review of Systems Review of Systems: Pt is somnolent having high ciwa scores All systems reviewed & are unremarkable except as noted in HPI and below ROS unobtainable: Yes unobtainable due to medical condition and unobtainable due to mental status Exam Narrative: General: Drowsy Lungs/Chest: Trachea central Clear BS B/L, No crackles or wheezing. Cardiac: RRR. Normal S1 S2. No murmurs Circulation: Pedal pulses are intact and symmetrical. Abdomen: Normal bowel sounds.. Soft. NT. ND. Extremities: No clubbing, cyanosis or edema. Warm : Daniel in place Neurologic: Drowsy Objective Data Vital Signs Vital Signs: Vital Signs - 24 hr 10/28/24 09:34 10/28/24 09:38 10/28/24 09:50 Temperature Pulse Rate 88 Pulse Rate [Right Radial Palpation] Respiratory Rate Blood Pressure 168/94 H Pulse Oximetry Oxygen Delivery Room Air 10/28/24 12:00 10/28/24 12:00 10/28/24 13:25 Temperature 97.5 F L Pulse Rate 55 L 57 L Pulse Rate [Right Radial Palpation] 92 Respiratory Rate 18 Blood Pressure 139/63 Pulse Oximetry 96 Oxygen Delivery 10/28/24 16:00 10/28/24 16:00 10/28/24 20:00 Temperature Pulse Rate 70 79 Pulse Rate [Right Radial Palpation] 78 Respiratory Rate Blood Pressure Pulse Oximetry Oxygen Delivery 10/28/24 20:48 10/28/24 20:51 10/28/24 23:22 Temperature 98.9 F Pulse Rate 66 66 Pulse Rate [Right Radial Palpation] Respiratory Rate 18 Blood Pressure 197/78 H 176/80 H Pulse Oximetry 96 Oxygen Delivery 10/29/24 00:00 10/29/24 04:00 10/29/24 05:36 Temperature 99.5 F Pulse Rate 63 65 62 Pulse Rate [Right Radial Palpation] Respiratory Rate 18 Blood Pressure Pulse Oximetry 97 Oxygen Delivery 10/29/24 06:46 Temperature Pulse Rate Pulse Rate [Right Radial Palpation] Respiratory Rate Blood Pressure 150/97 H Pulse Oximetry Oxygen Delivery Intake/Output Intake/Output: Intake & Output 10/26/24 10/27/24 10/28/24 10/29/24 23:59 23:59 23:59 23:59 Intake Total 2908 3553 523 100 Balance 2908 3553 523 100 Meds/Results Medications: Active Medications Generic Name Dose Route Start Last Admin Trade Name Freq PRN Reason Stop Dose Admin Acetaminophen 500 mg 10/25/24 19:58 Acetaminophen 500 Mg Tablet PO Q4H PRN Mild Pain (1-3) or Fever Al Hydrox/Mg Hydrox/Simethicone 30 ml 10/19/24 17:51 10/21/24 14:06 Mag Hydrox/Al Hydrox/Simeth 30 Ml Udc PO 30 ml Q6H PRN Administration Indigestion Amlodipine Besylate 10 mg 10/20/24 12:10 10/28/24 09:38 Amlodipine Besylate 10 Mg Tablet PO 10 mg DAILY NIXON Administration Aripiprazole 10 mg 10/27/24 09:00 10/28/24 09:38 Aripiprazole 5 Mg Tablet PO 10 mg DAILY NIXON Administration Aspirin 81 mg 10/19/24 09:00 10/28/24 09:38 Aspirin 81 Mg Enteric Tablet PO 81 mg QAM NIXON Administration Carvedilol 12.5 mg 10/20/24 21:00 10/28/24 20:51 Carvedilol 12.5 Mg Tablet PO 12.5 mg Q12HR NIXON Administration Cefdinir 300 mg 10/28/24 12:00 10/28/24 20:50 Cefdinir 300 Mg Capsule PO 11/01/24 21:01 300 mg Q12HR NIXON Administration Clonidine HCl 0.1 mg 10/20/24 09:00 10/28/24 20:52 Clonidine Hcl 0.1 Mg Tablet PO 0.1 mg Q12HR NIXON Administration Dicyclomine HCl 20 mg 10/20/24 08:44 10/28/24 02:51 Dicyclomine Hcl 10 Mg Capsule PO 20 mg QID PRN Administration Abdominal Cramping Folic Acid 1 mg 10/19/24 09:00 10/28/24 09:38 Folic Acid 1 Mg/0.2 Ml Inj IV PUSH 1 mg QAM NIXON Administration Heparin Sodium (Porcine) 5,000 units 10/25/24 14:00 10/29/24 06:20 Heparin Sodium 5,000 Units/Ml Vial SUB-Q 5,000 units Q8HR NIXON Administration Hydralazine HCl 20 mg 10/19/24 08:20 Hydralazine Hcl 20 Mg/Ml Vial IV PUSH Q4H PRN SBP more than 180 Thiamine HCl 300 mg/ Sodium 103 mls @ 206 mls/hr 10/19/24 09:00 10/28/24 10:09 Chloride IVPB Infused DAILY NIXON Infusion Labetalol HCl 10 mg 10/19/24 14:15 10/26/24 23:32 Labetalol Hcl Inj 100 Mg/20 Ml Vial IV PUSH 10 mg Q4H PRN Administration SBP > 180 -1st choce Lactulose 20 gm 10/21/24 09:40 10/28/24 09:39 Lactulose 20 Gm/30 Ml Udc PO 20 gm QAM NIXON Administration Lisinopril 40 mg 10/19/24 09:00 10/21/24 09:54 Lisinopril 20 Mg Tablet PO 40 mg QAM NIXON Administration Lorazepam 2 mg 10/23/24 21:43 10/27/24 00:09 Lorazepam Inj (*Crx) 2 Mg/Ml Vial IV PUSH 2 mg Q2H PRN Administration CIWA > 15 Lorazepam 2 mg 10/23/24 21:43 10/25/24 00:40 Lorazepam Inj (*Crx) 2 Mg/Ml Vial IV PUSH 2 mg Q4H PRN Administration CIWA 8-15 Metronidazole 500 mg 10/28/24 16:00 10/29/24 06:21 Metronidazole 500 Mg Tablet PO 11/01/24 22:01 500 mg Q8HR NIXON Administration Miscellaneous Information 1 each 10/29/24 00:01 Percocet Needs To Be Renewed Or It Will Automatically Discontinue. XX 11/28/24 00:00 CLARIFY NIXON Nicotine Polacrilex 2 mg 10/22/24 22:58 10/22/24 23:13 Nicotine (*Pbkc) 2 Mg Gum PO 2 mg PRN PRN Administration Nicotine Cravings Ondansetron HCl 4 mg 10/18/24 21:09 10/21/24 14:06 Ondansetron Inj 4 Mg/2 Ml Vial IV PUSH 4 mg Q4H PRN Administration Nausea Oxycodone/Acetaminophen 1 tablet 10/20/24 09:09 10/29/24 02:12 Oxycodone/Acetaminophen (*Crx) 5-325 Mg Tablet PO 1 tablet Q4H PRN Administration Pain Rated 7-10 Polyethylene Glycol 17 gm 10/21/24 04:00 10/29/24 06:22 Polyethylene Glycol 3350 17 Gm Powd.Pack PO 17 gm Q8HR NIXON Administration Senna/Docusate Sodium 1 tab 10/20/24 21:00 10/28/24 20:50 Senna/Docusate Sodium Tablet PO 1 tab HS NIXON Administration Radiology Results: ITS Impressions Forearm X-Ray 10/18/24 16:37 IMPRESSION: No acute fracture or dislocation Chest X-Ray 10/18/24 21:11 IMPRESSION: 1. No acute cardiopulmonary disease. Head CT 10/19/24 05:45 Impression: No significant abnormality seen. Abdomen/Pelvis CT 10/21/24 05:24 Impression: Probable gallbladder sludge and diffuse gallbladder wall thickening/edematous change. Correlate for acute cholecystitis. Consider ultrasound and/or HIDA scan for further evaluation. Air in urinary bladder, which may be iatrogenic. Correlate clinically. 2 mm nonobstructing left renal stone. Upper Quadrant Ultrasound 10/21/24 08:18 IMPRESSION: 1. Distended gallbladder with sludge. Severe gallbladder wall thickening may be seen with chronic liver disease or chronic cholecystitis. No sonographic Fernando's sign to suggest acute cholecystitis. If there is clinical concern for acute cholecystitis, consider hepatobiliary scintigraphy. Head/Neck CTA 10/22/24 06:50 Impression: No significant abnormality. Abdomen X-Ray 10/28/24 19:13 IMPRESSION: Nonspecific, nonobstructive bowel gas pattern, as detailed above. Labs Labs: Laboratory Results - last 24 hr 10/28/24 10/29/24 17:10 06:49 WBC 8.5 RBC 3.55 L Hgb 10.8 L Hct 33.2 L MCV 93.5 MCH 30.4 MCHC 32.5 RDW 13.3 Plt Count 434 H MPV 10.4 Immature Gran % (Auto) 0.7 H Neut % (Auto) 70.1 Lymph % (Auto) 13.8 L [place] % (Auto) 9.2 H Eos % (Auto) 5.7 H Baso % (Auto) 0.5 Lymph # (Auto) 1.17 [place] # (Auto) 0.8 H Eos # (Auto) 0.5 H Baso # (Auto) 0.0 Abs Immat Gran (auto) 0.06 H Absolute Neuts (auto) 6.0 Absolute Nucleated RBC 0.000 Nucleated RBC % 0.0 Sodium 143 Potassium 3.3 L Chloride 108 H Carbon Dioxide 25 Anion Gap 10 BUN 19 H Creatinine 1.78 H Estim Creat Clear Calc 32 Estimated GFR 30 L Glucose 79 POC Capillary Glucose 90 Calcium 8.3 L Magnesium 1.7 Total Bilirubin 0.3 AST 107 H ALT 58 H Alkaline Phosphatase 162 H Total Protein 6.0 L Albumin 3.1 L Quality VTE Prophylaxis VTE prophylaxis: pharmacologic ordered
[2024-10-29] MEDS: cloNIDine HCL 0.1 MG TABLET PO ×2 (10:02→21:56)
[2024-10-29] MEDS: ASPIRIN 81 MG ENTERIC TABLET PO (10:02)
[2024-10-29] MEDS: amLODIPine BESYLATE 10 MG TABLET PO (10:02)
[2024-10-29] MEDS: FOLIC ACID 1 MG/0.2 ML INJ IV PUSH (10:03)
[2024-10-29] MEDS: CEFDINIR 300 MG CAPSULE PO ×2 (10:03→21:56)
[2024-10-29] MEDS: ARIPiprazole 5 MG TABLET PO (10:03)
[2024-10-29] MEDS: carvediloL 12.5 MG TABLET PO ×2 (10:03→21:55)
[2024-10-29] MEDS: THIAMINE HCL INJ 300 MG in SODIUM CHLORIDE 0.9% IV 100 ML 206 MG IVPB (10:03)
[2024-10-29] MEDS: LACTULOSE 20 GM/30 ML UDC PO (10:03)
[2024-10-29] MEDS: DICYCLOMINE HCL 10 MG CAPSULE 20 MG PO (10:03)
[2024-10-29] MEDS: SODIUM CHLORIDE 0.9% IV 1,000 ML 100 ML IV CONT ×2 (10:06→21:53)
--- NOTE | 2024-10-29 10:27 | P.PNGS_ITS ---
Progress Note: A&P Assessment and Plan (1) Cholecystitis: Code(s): K81.9 - Cholecystitis, unspecified Status: Acute Assessment and Plan: exam benign, tolerating diet, continue conservative management of cholecystitis, may follow up with us as an outpatient for discussion of further testing, elective cholecystectomy, no acute surgical issues, will sign off, call with questions or concerns Subjective Subjective Date/Time Seen: 10/29/24 10:27 Interval history: No acute issues, reports no abdominal pain, patient not very communicative (?baseline) Review of Systems Review of Systems: ROS unobtainable: Yes unobtainable due to mental status Exam Const: General: comfortable and no acute distress Resp: Auscultation: clear to auscultation bilaterally Cardio: Rate: regular rate Rhythm: regular rhythm GI: Inspection: normal to inspection and non-distended GI Palp: No abdominal tenderness and Yes Soft to palpation Objective Data Vital Signs Vital Signs: Vital Signs - 24 hr 10/28/24 12:00 10/28/24 12:00 10/28/24 13:25 Temperature 36.4 C L Pulse Rate 55 L 57 L Pulse Rate [Right Radial Palpation] 92 Respiratory Rate 18 Blood Pressure 139/63 Pulse Oximetry 96 10/28/24 16:00 10/28/24 16:00 10/28/24 20:00 Temperature Pulse Rate 70 79 Pulse Rate [Right Radial Palpation] 78 Respiratory Rate Blood Pressure Pulse Oximetry 10/28/24 20:48 10/28/24 20:51 10/28/24 23:22 Temperature 37.2 C Pulse Rate 66 66 Pulse Rate [Right Radial Palpation] Respiratory Rate 18 Blood Pressure 197/78 H 176/80 H Pulse Oximetry 96 10/29/24 00:00 10/29/24 04:00 10/29/24 05:36 Temperature 37.5 C Pulse Rate 63 65 62 Pulse Rate [Right Radial Palpation] Respiratory Rate 18 Blood Pressure Pulse Oximetry 97 10/29/24 06:46 10/29/24 08:00 10/29/24 10:03 Temperature Pulse Rate 88 Pulse Rate [Right Radial Palpation] 90 Respiratory Rate Blood Pressure 150/97 H Pulse Oximetry 10/29/24 10:20 Temperature 36.4 C L Pulse Rate 90 Pulse Rate [Right Radial Palpation] Respiratory Rate 16 Blood Pressure Pulse Oximetry 95 Intake/Output Intake/Output: Intake & Output 10/26/24 10/27/24 10/28/24 10/29/24 23:59 23:59 23:59 23:59 Intake Total 2908 3553 523 100 Balance 2908 3553 523 100 Meds/Results Medications: Active Medications Generic Name Dose Route Start Last Admin Trade Name Freq PRN Reason Stop Dose Admin Acetaminophen 500 mg 10/25/24 19:58 Acetaminophen 500 Mg Tablet PO Q4H PRN Mild Pain (1-3) or Fever Al Hydrox/Mg Hydrox/Simethicone 30 ml 10/19/24 17:51 10/21/24 14:06 Mag Hydrox/Al Hydrox/Simeth 30 Ml Udc PO 30 ml Q6H PRN Administration Indigestion Amlodipine Besylate 10 mg 10/20/24 12:10 10/29/24 10:02 Amlodipine Besylate 10 Mg Tablet PO 10 mg DAILY NIXON Administration Aripiprazole 5 mg 10/29/24 09:00 10/29/24 10:03 Aripiprazole 5 Mg Tablet PO 5 mg DAILY NIXON Administration Aspirin 81 mg 10/19/24 09:00 10/29/24 10:02 Aspirin 81 Mg Enteric Tablet PO 81 mg QAM NIXON Administration Carvedilol 12.5 mg 10/20/24 21:00 10/29/24 10:03 Carvedilol 12.5 Mg Tablet PO 12.5 mg Q12HR NIXON Administration Cefdinir 300 mg 10/28/24 12:00 10/29/24 10:03 Cefdinir 300 Mg Capsule PO 11/01/24 21:01 300 mg Q12HR NIXON Administration Clonidine HCl 0.1 mg 10/20/24 09:00 10/29/24 10:02 Clonidine Hcl 0.1 Mg Tablet PO 0.1 mg Q12HR NIXON Administration Dicyclomine HCl 20 mg 10/20/24 08:44 10/29/24 10:03 Dicyclomine Hcl 10 Mg Capsule PO 20 mg QID PRN Administration Abdominal Cramping Folic Acid 1 mg 10/19/24 09:00 10/29/24 10:03 Folic Acid 1 Mg/0.2 Ml Inj IV PUSH 1 mg QAM NIXON Administration Heparin Sodium (Porcine) 5,000 units 10/25/24 14:00 10/29/24 06:20 Heparin Sodium 5,000 Units/Ml Vial SUB-Q 5,000 units Q8HR NIXON Administration Hydralazine HCl 20 mg 10/19/24 08:20 Hydralazine Hcl 20 Mg/Ml Vial IV PUSH Q4H PRN SBP more than 180 Thiamine HCl 300 mg/ Sodium 103 mls @ 206 mls/hr 10/19/24 09:00 10/29/24 10:03 Chloride IVPB 206 mls/hr DAILY NIXON Administration Sodium Chloride 1,000 mls @ 100 mls/hr 10/29/24 09:45 10/29/24 10:06 Normal Saline Iv IV CONT 100 mls/hr .Q10H NIXON Administration Labetalol HCl 10 mg 10/19/24 14:15 10/26/24 23:32 Labetalol Hcl Inj 100 Mg/20 Ml Vial IV PUSH 10 mg Q4H PRN Administration SBP > 180 -1st choce Lactulose 20 gm 10/21/24 09:40 10/29/24 10:03 Lactulose 20 Gm/30 Ml Udc PO 20 gm QAM NIXON Administration Lisinopril 40 mg 10/19/24 09:00 10/21/24 09:54 Lisinopril 20 Mg Tablet PO 40 mg QAM NIXON Administration Lorazepam 2 mg 10/23/24 21:43 10/25/24 00:40 Lorazepam Inj (*Crx) 2 Mg/Ml Vial IV PUSH 2 mg Q4H PRN Administration CIWA 8-15 Lorazepam 1 mg 10/29/24 09:39 Lorazepam Inj (*Crx) 2 Mg/Ml Vial IV PUSH Q4H PRN CIWA > 15 Metronidazole 500 mg 10/28/24 16:00 10/29/24 06:21 Metronidazole 500 Mg Tablet PO 11/01/24 22:01 500 mg Q8HR NIXON Administration Miscellaneous Information 1 each 10/29/24 00:01 Percocet Needs To Be Renewed Or It Will Automatically Discontinue. XX 11/28/24 00:00 CLARIFY NIXON Nicotine Polacrilex 2 mg 10/22/24 22:58 10/22/24 23:13 Nicotine (*Pbkc) 2 Mg Gum PO 2 mg PRN PRN Administration Nicotine Cravings Ondansetron HCl 4 mg 10/18/24 21:09 10/21/24 14:06 Ondansetron Inj 4 Mg/2 Ml Vial IV PUSH 4 mg Q4H PRN Administration Nausea Oxycodone/Acetaminophen 1 tablet 10/20/24 09:09 10/29/24 10:22 Oxycodone/Acetaminophen (*Crx) 5-325 Mg Tablet PO 1 tablet Q4H PRN Administration Pain Rated 7-10 Polyethylene Glycol 17 gm 10/21/24 04:00 10/29/24 06:22 Polyethylene Glycol 3350 17 Gm Powd.Pack PO 17 gm Q8HR NIXON Administration Senna/Docusate Sodium 1 tab 10/20/24 21:00 10/28/24 20:50 Senna/Docusate Sodium Tablet PO 1 tab HS NIXON Administration Radiology Results: ITS Impressions Forearm X-Ray 10/18/24 16:37 IMPRESSION: No acute fracture or dislocation Chest X-Ray 10/18/24 21:11 IMPRESSION: 1. No acute cardiopulmonary disease. Head CT 10/19/24 05:45 Impression: No significant abnormality seen. Abdomen/Pelvis CT 10/21/24 05:24 Impression: Probable gallbladder sludge and diffuse gallbladder wall thickening/edematous change. Correlate for acute cholecystitis. Consider ultrasound and/or HIDA scan for further evaluation. Air in urinary bladder, which may be iatrogenic. Correlate clinically. 2 mm nonobstructing left renal stone. Upper Quadrant Ultrasound 10/21/24 08:18 IMPRESSION: 1. Distended gallbladder with sludge. Severe gallbladder wall thickening may be seen with chronic liver disease or chronic cholecystitis. No sonographic Fernando's sign to suggest acute cholecystitis. If there is clinical concern for acute cholecystitis, consider hepatobiliary scintigraphy. Head/Neck CTA 10/22/24 06:50 Impression: No significant abnormality. Abdomen X-Ray 10/28/24 19:13 IMPRESSION: Nonspecific, nonobstructive bowel gas pattern, as detailed above. Labs Labs: Laboratory Results - last 24 hr 10/28/24 10/29/24 17:10 06:49 WBC 8.5 RBC 3.55 L Hgb 10.8 L Hct 33.2 L MCV 93.5 MCH 30.4 MCHC 32.5 RDW 13.3 Plt Count 434 H MPV 10.4 Immature Gran % (Auto) 0.7 H Neut % (Auto) 70.1 Lymph % (Auto) 13.8 L [place] % (Auto) 9.2 H Eos % (Auto) 5.7 H Baso % (Auto) 0.5 Lymph # (Auto) 1.17 [place] # (Auto) 0.8 H Eos # (Auto) 0.5 H Baso # (Auto) 0.0 Abs Immat Gran (auto) 0.06 H Absolute Neuts (auto) 6.0 Absolute Nucleated RBC 0.000 Nucleated RBC % 0.0 Sodium 143 Potassium 3.3 L Chloride 108 H Carbon Dioxide 25 Anion Gap 10 BUN 19 H Creatinine 1.78 H Estim Creat Clear Calc 32 Estimated GFR 30 L Glucose 79 POC Capillary Glucose 90 Calcium 8.3 L Magnesium 1.7 Total Bilirubin 0.3 AST 107 H ALT 58 H Alkaline Phosphatase 162 H Total Protein 6.0 L Albumin 3.1 L
[2024-10-29 12:40] LABS: Glucose Point of Care 103 mg/dl (65-105)
[2024-10-29 18:41] LABS: Glucose Point of Care 120 mg/dl (65-105)
[2024-10-29] MEDS: SENNA/DOCUSATE SODIUM TABLET 1 TAB PO (21:56)
[2024-10-30] VITALS (10 sets, daily range): BP systolic 150–173; BP diastolic 70–94; PULSE 61–79; RESP 16–18; TEMP 36.7–37; O2SAT 94–96
[2024-10-30 01:03] LABS: Glucose Point of Care 104 mg/dl (65-105)
[2024-10-30] MEDS: LORazepam INJ (*CRX) 2 MG/ML VIAL 1 MG IV PUSH ×2 (04:55→09:55)
[2024-10-30 05:53] LABS: Basophils Percent Auto 0.4 % (0.2-1.2); Eosinophils Absolute Auto 0.4 K/mm3 (0-0.3); Eosinophils Percent Auto 4.9 % (0-4.4); Hematocrit 28.9 % (37.0-47.0); Hemoglobin 9.3 g/dL (12.0-15.0); Immature Granulocyte Absolute 0.06 K/mm3 (0.00-0.031); Immature Granulocyte Percent A 0.8 % (0-0.5); Lymphocytes Absolute Auto 1.44 K/mm3 (0.9-3.2); Lymphocytes Percent Auto 19.7 % (18.3-44.2); Mean Corpuscular HGB Conc 32.2 g/dl (32-36); Mean Corpuscular Hemoglobin 30.3 pg (26-34); Mean Corpuscular Volume 94.1 fl (80-100); Mean Platelet Volume 10.7 fl (7.4-10.4); Monocytes Absolute Auto 0.6 K/mm3 (0.1-0.6); Monocytes Percent Auto 7.9 % (2.6-8.5); Neutrophils Absolute Auto 4.9 K/mm3 (1.3-6.7); Neutrophils Percent Auto 66.3 % (45.5-73.1); Platelet Count Result 411 k/mm3 (150-375); Red Blood Count 3.07 M/mm3 (4.2-5.4); Red Cell Distribution Width 13.3 % (11.5-14.5); White Blood Count 7.3 K/mm3 (4.5-10.0)
[2024-10-30] MEDS: polyethylene glycoL 3350 17 GM POWD.PACK PO ×2 (06:05→14:57)
[2024-10-30] MEDS: HEPARIN SODIUM 5,000 UNITS/ML VIAL 5000 UNITS SUB-Q ×3 (06:06→22:21)
[2024-10-30] MEDS: metroNIDAZOLE 500 MG TABLET PO ×3 (06:06→21:53)
[2024-10-30 06:07] LABS: Alanine Aminotransferase 55 U/L (6-35); Albumin Level 2.8 g/dL (3.5-5.1); Alkaline Phosphatase 158 U/L (38-126); Anion Gap 7 mmol/L (4-12); Aspartate Amino Transferase 66 U/L (14-36); Bilirubin,Total 0.3 mg/dL (0.2-1.3); Blood Urea Nitrogen 17 mg/dL (7-17); Calcium 7.9 mg/dL (8.4-10.2); Carbon Dioxide 26 mmol/L (22-30); Chloride 108 mmol/L (98-107); Estimated CRCL calculation 38 ml/min; Estimated Glomerular Filt Rate 38; Glucose 100 mg/dL (65-110); Magnesium 1.5 mg/dL (1.6-2.3); Sodium 141 mmol/L (137-145)
[2024-10-30 06:46] LABS: Glucose Point of Care 102 mg/dl (65-105)
[2024-10-30 09:40] LABS: Glucose Point of Care 95 mg/dl (65-105)
[2024-10-30] MEDS: oxyCODONE/ACETAMINOPHEN (*CRX) 5-325 MG TABLET 1 TABLET PO ×2 (09:45→20:08)
[2024-10-30] MEDS: LACTULOSE 20 GM/30 ML UDC PO (09:45)
[2024-10-30] MEDS: ASPIRIN 81 MG ENTERIC TABLET PO (09:46)
[2024-10-30] MEDS: ARIPiprazole 5 MG TABLET PO (09:46)
[2024-10-30] MEDS: CEFDINIR 300 MG CAPSULE PO ×2 (09:46→21:53)
[2024-10-30] MEDS: cloNIDine HCL 0.1 MG TABLET PO ×2 (09:46→21:54)
[2024-10-30] MEDS: amLODIPine BESYLATE 10 MG TABLET PO (09:46)
[2024-10-30] MEDS: carvediloL 12.5 MG TABLET PO ×2 (09:46→21:53)
[2024-10-30] MEDS: THIAMINE HCL INJ 300 MG in SODIUM CHLORIDE 0.9% IV 100 ML 206 MG IVPB (09:47)
[2024-10-30] MEDS: FOLIC ACID 1 MG/0.2 ML INJ IV PUSH (09:47)
[2024-10-30] MEDS: SODIUM CHLORIDE 0.9% IV 1,000 ML 100 ML IV CONT ×2 (09:58→20:35)
--- NOTE | 2024-10-30 11:26 | PCPTNOTE ---
Attempted evaluation however pt was unable to awaken enough to participate. Will reattempt as able
--- NOTE | 2024-10-30 11:46 | P.PNIM_ITS ---
Progress Note: A&P Assessment and Plan (1) Substance abuse: Code(s): F19.10 - Other psychoactive substance abuse, uncomplicated Status: Acute Assessment and Plan: Will continue to follow CIWA scale and manage accordingly. (2) Uncontrolled hypertension: Code(s): I10 - Essential (primary) hypertension Status: Acute Assessment and Plan: Blood pressure is getting better. Continue current treatment monitor closely. (3) NSTEMI (non-ST elevated myocardial infarction): Code(s): I21.4 - Non-ST elevation (NSTEMI) myocardial infarction Status: Acute Assessment and Plan: Stable, continue current treatment. (4) Acute hypokalemia: Code(s): E87.6 - Hypokalemia Status: Acute Assessment and Plan: Replace and monitor. (5) Alcohol abuse: Code(s): F10.10 - Alcohol abuse, uncomplicated Status: Acute Assessment and Plan: Counseling given, continue current treatment (6) Cholecystitis: Code(s): K81.9 - Cholecystitis, unspecified Status: Acute Assessment and Plan: Stable, continue current treatment. Plan Substance abuse Pt drinking alcohol and UDS positive for Amphetamine CIWA pt scoring high s/p Librium and Hydroxyxine Thiamine and folic acid Lorazepam 1 mg q.4 hours p.r.n. for seizure, taper off monitor Agitation, improving ?Underlying psych disorder vs withdrawals Patient however is on 8th day of being sober and off drugs Continue PRN Ativan, stopped Librium Continue Aripiprazole at 5mg daily, decreased from 10mg due to somnolence monitor and adjust Troponin elevation As per Cardiology -most likely as a result of her uncontrolled hypertension as well as the positive urine drug screen for methamphetamine -echocardiogram review normal biventricular systolic function with severe left ventricular hypertrophy HTN s/p Nitro drip Clonidine 0.1mg PO BID, Coreg 12.5 mg PO BID,Amlodipine 10mg PO QD. Lisinopril 40mg PO in hold due to OMAIRA monitor and adjust with clinic Cholecystitis US Abd:1. Distended gallbladder with sludge. Severe gallbladder wall thickening may be seen with chronic liver disease or chronic cholecystitis. No sonographic Fernando's sign to suggest acute cholecystitis. If there is clinical concern for acute cholecystitis, consider hepatobiliary scintigraphy. CT Abd/Pelvis:Probable gallbladder sludge and diffuse gallbladder wall thickening/edematous change. Correlate for acute cholecystitis. Consider ultrasound and/or HIDA scan for further evaluation.Air in urinary bladder, which may be iatrogenic. Correlate clinically.2 mm nonobstructing left renal stone. S/p Cefepime and Flagyl, now on PO Cefdinir and Flagyl Plan is to complete 14 days of total antibiotics Liver enzymes resolved Surgery recommended no intervention Elevated liver enzymes, resolved Likely from alcohol and drug abuse resolving OMAIRA Cr 1.78, baseline normal restarted on IVF and monitor Lisinopril on hol d encourage oral intake DVT prophylaxis on Sq Lovenox Awaiting resolution of OMAIRA for discharge Subjective Date/time seen: 10/30/24 11:46 Interval history: Patient was seen during the morning rounds today. Patient is feeling slightly better. Decrease agitation. More alert. No shortness of breath or chest pain. No nausea or vomiting. Review of Systems Review of Systems: Pt is somnolent having high ciwa scores All systems reviewed & are unremarkable except as noted in HPI and below ROS unobtainable: Yes unobtainable due to medical condition and unobtainable due to mental status Exam Narrative: General: Drowsy Lungs/Chest: Trachea central Clear BS B/L, No crackles or wheezing. Cardiac: RRR. Normal S1 S2. No murmurs Circulation: Pedal pulses are intact and symmetrical. Abdomen: Normal bowel sounds.. Soft. NT. ND. Extremities: No clubbing, cyanosis or edema. Warm : Daniel in place Neurologic: Drowsy Objective Data Vital Signs Vital Signs: Vital Signs - 24 hr 10/29/24 12:00 10/29/24 12:00 10/29/24 13:30 Temperature 36.4 C L Pulse Rate 60 59 L Pulse Rate [Right Radial Palpation] 88 Respiratory Rate 18 Blood Pressure 126/62 Pulse Oximetry 97 Oxygen Delivery 10/29/24 16:00 10/29/24 16:00 10/29/24 20:00 Temperature Pulse Rate 48 L Pulse Rate [Right Radial Palpation] 102 H 64 Respiratory Rate Blood Pressure Pulse Oximetry Oxygen Delivery 10/29/24 20:00 10/29/24 21:55 10/29/24 22:16 Temperature 36.5 C Pulse Rate 64 60 62 Pulse Rate [Right Radial Palpation] Respiratory Rate 14 Blood Pressure 151/75 H Pulse Oximetry 95 Oxygen Delivery 10/30/24 00:00 10/30/24 00:00 10/30/24 04:00 Temperature Pulse Rate 62 Pulse Rate [Right Radial Palpation] 62 67 Respiratory Rate Blood Pressure Pulse Oximetry Oxygen Delivery 10/30/24 04:00 10/30/24 06:09 10/30/24 08:00 Temperature 36.7 C 36.7 C Pulse Rate 67 72 64 Pulse Rate [Right Radial Palpation] Respiratory Rate 16 18 Blood Pressure 156/70 H Pulse Oximetry 94 96 Oxygen Delivery 10/30/24 09:45 10/30/24 09:46 Temperature Pulse Rate 64 Pulse Rate [Right Radial Palpation] Respiratory Rate Blood Pressure Pulse Oximetry Oxygen Delivery Room Air Intake/Output Intake/Output: Intake & Output 10/27/24 10/28/24 10/29/24 10/30/24 23:59 23:59 23:59 23:59 Intake Total 3553 523 1443 1750 Balance 3553 523 1443 1750 Meds/Results Medications: Active Medications Generic Name Dose Route Start Last Admin Trade Name Freq PRN Reason Stop Dose Admin Acetaminophen 500 mg 10/25/24 19:58 Acetaminophen 500 Mg Tablet PO Q4H PRN Mild Pain (1-3) or Fever Al Hydrox/Mg Hydrox/Simethicone 30 ml 10/19/24 17:51 10/21/24 14:06 Mag Hydrox/Al Hydrox/Simeth 30 Ml Udc PO 30 ml Q6H PRN Administration Indigestion Amlodipine Besylate 10 mg 10/20/24 12:10 10/30/24 09:46 Amlodipine Besylate 10 Mg Tablet PO 10 mg DAILY NIXON Administration Aripiprazole 5 mg 10/29/24 09:00 10/30/24 09:46 Aripiprazole 5 Mg Tablet PO 5 mg DAILY NIXON Administration Aspirin 81 mg 10/19/24 09:00 10/30/24 09:46 Aspirin 81 Mg Enteric Tablet PO 81 mg QAM NIXON Administration Carvedilol 12.5 mg 10/20/24 21:00 10/30/24 09:46 Carvedilol 12.5 Mg Tablet PO 12.5 mg Q12HR NIXON Administration Cefdinir 300 mg 10/28/24 12:00 10/30/24 09:46 Cefdinir 300 Mg Capsule PO 11/01/24 21:01 300 mg Q12HR NIXON Administration Clonidine HCl 0.1 mg 10/20/24 09:00 10/30/24 09:46 Clonidine Hcl 0.1 Mg Tablet PO 0.1 mg Q12HR NIXON Administration Dicyclomine HCl 20 mg 10/20/24 08:44 10/29/24 10:03 Dicyclomine Hcl 10 Mg Capsule PO 20 mg QID PRN Administration Abdominal Cramping Folic Acid 1 mg 10/19/24 09:00 10/30/24 09:47 Folic Acid 1 Mg/0.2 Ml Inj IV PUSH 1 mg QAM NIXON Administration Heparin Sodium (Porcine) 5,000 units 10/25/24 14:00 10/30/24 06:06 Heparin Sodium 5,000 Units/Ml Vial SUB-Q 5,000 units Q8HR NIXON Administration Hydralazine HCl 20 mg 10/19/24 08:20 Hydralazine Hcl 20 Mg/Ml Vial IV PUSH Q4H PRN SBP more than 180 Thiamine HCl 300 mg/ Sodium 103 mls @ 206 mls/hr 10/19/24 09:00 10/30/24 09:47 Chloride IVPB 206 mls/hr DAILY NIXON Administration Sodium Chloride 1,000 mls @ 100 mls/hr 10/29/24 09:45 10/30/24 09:58 Normal Saline Iv IV CONT 100 mls/hr .Q10H NIXON Administration Labetalol HCl 10 mg 10/19/24 14:15 10/26/24 23:32 Labetalol Hcl Inj 100 Mg/20 Ml Vial IV PUSH 10 mg Q4H PRN Administration SBP > 180 -1st choce Lactulose 20 gm 10/21/24 09:40 10/30/24 09:45 Lactulose 20 Gm/30 Ml Udc PO 20 gm QAM NIXON Administration Lisinopril 40 mg 10/19/24 09:00 10/21/24 09:54 Lisinopril 20 Mg Tablet PO 40 mg QAM NIXON Administration Lorazepam 2 mg 10/23/24 21:43 10/25/24 00:40 Lorazepam Inj (*Crx) 2 Mg/Ml Vial IV PUSH 2 mg Q4H PRN Administration CIWA 8-15 Lorazepam 1 mg 10/29/24 09:39 10/30/24 09:55 Lorazepam Inj (*Crx) 2 Mg/Ml Vial IV PUSH 1 mg Q4H PRN Administration CIWA > 15 Metronidazole 500 mg 10/28/24 16:00 10/30/24 06:06 Metronidazole 500 Mg Tablet PO 11/01/24 22:01 500 mg Q8HR NIXON Administration Miscellaneous Information 1 each 10/29/24 00:01 Percocet Needs To Be Renewed Or It Will Automatically Discontinue. XX 11/28/24 00:00 CLARIFY NIXON Nicotine Polacrilex 2 mg 10/22/24 22:58 10/22/24 23:13 Nicotine (*Pbkc) 2 Mg Gum PO 2 mg PRN PRN Administration Nicotine Cravings Ondansetron HCl 4 mg 10/18/24 21:09 10/21/24 14:06 Ondansetron Inj 4 Mg/2 Ml Vial IV PUSH 4 mg Q4H PRN Administration Nausea Oxycodone/Acetaminophen 1 tablet 10/20/24 09:09 10/30/24 09:45 Oxycodone/Acetaminophen (*Crx) 5-325 Mg Tablet PO 1 tablet Q4H PRN Administration Pain Rated 7-10 Polyethylene Glycol 17 gm 10/21/24 04:00 10/30/24 06:05 Polyethylene Glycol 3350 17 Gm Powd.Pack PO 17 gm Q8HR NIXON Administration Potassium Chloride 40 meq 10/30/24 11:44 Potassium Chloride 20 Meq Er Tablet PO 10/30/24 11:45 ONCE ONE Senna/Docusate Sodium 1 tab 10/20/24 21:00 10/29/24 21:56 Senna/Docusate Sodium Tablet PO 1 tab HS NIXON Administration Radiology Results: ITS Impressions Forearm X-Ray 10/18/24 16:37 IMPRESSION: No acute fracture or dislocation Chest X-Ray 10/18/24 21:11 IMPRESSION: 1. No acute cardiopulmonary disease. Head CT 10/19/24 05:45 Impression: No significant abnormality seen. Abdomen/Pelvis CT 10/21/24 05:24 Impression: Probable gallbladder sludge and diffuse gallbladder wall thickening/edematous change. Correlate for acute cholecystitis. Consider ultrasound and/or HIDA scan for further evaluation. Air in urinary bladder, which may be iatrogenic. Correlate clinically. 2 mm nonobstructing left renal stone. Upper Quadrant Ultrasound 10/21/24 08:18 IMPRESSION: 1. Distended gallbladder with sludge. Severe gallbladder wall thickening may be seen with chronic liver disease or chronic cholecystitis. No sonographic Fernando's sign to suggest acute cholecystitis. If there is clinical concern for acute cholecystitis, consider hepatobiliary scintigraphy. Head/Neck CTA 10/22/24 06:50 Impression: No significant abnormality. Abdomen X-Ray 10/28/24 19:13 IMPRESSION: Nonspecific, nonobstructive bowel gas pattern, as detailed above. Labs Labs: Laboratory Results - last 24 hr 10/29/24 10/29/24 10/30/24 12:36 18:38 00:57 WBC RBC Hgb Hct MCV MCH MCHC RDW Plt Count MPV Immature Gran % (Auto) Neut % (Auto) Lymph % (Auto) [place] % (Auto) Eos % (Auto) Baso % (Auto) Lymph # (Auto) [place] # (Auto) Eos # (Auto) Baso # (Auto) Abs Immat Gran (auto) Absolute Neuts (auto) Absolute Nucleated RBC Nucleated RBC % Sodium Potassium Chloride Carbon Dioxide Anion Gap BUN Creatinine Estim Creat Clear Calc Estimated GFR Glucose POC Capillary Glucose 103 120 H 104 Calcium Magnesium Total Bilirubin AST ALT Alkaline Phosphatase Total Protein Albumin 10/30/24 10/30/24 10/30/24 05:28 06:11 08:30 WBC 7.3 RBC 3.07 L Hgb 9.3 L Hct 28.9 L MCV 94.1 MCH 30.3 MCHC 32.2 RDW 13.3 Plt Count 411 H MPV 10.7 H Immature Gran % (Auto) 0.8 H Neut % (Auto) 66.3 Lymph % (Auto) 19.7 [place] % (Auto) 7.9 Eos % (Auto) 4.9 H Baso % (Auto) 0.4 Lymph # (Auto) 1.44 [place] # (Auto) 0.6 Eos # (Auto) 0.4 H Baso # (Auto) 0.0 Abs Immat Gran (auto) 0.06 H Absolute Neuts (auto) 4.9 Absolute Nucleated RBC 0.000 Nucleated RBC % 0.0 Sodium 141 Potassium 3.0 L Chloride 108 H Carbon Dioxide 26 Anion Gap 7 BUN 17 Creatinine 1.46 H Estim Creat Clear Calc 38 Estimated GFR 38 L Glucose 100 POC Capillary Glucose 102 95 Calcium 7.9 L Magnesium 1.5 L Total Bilirubin 0.3 AST 66 H ALT 55 H Alkaline Phosphatase 158 H Total Protein 6.0 L Albumin 2.8 L Quality VTE Prophylaxis VTE prophylaxis: pharmacologic ordered
[2024-10-30 12:19] LABS: Glucose Point of Care 108 mg/dl (65-105)
[2024-10-30] MEDS: POTASSIUM CHLORIDE 20 MEQ ER TABLET 40 MEQ PO (12:59)
[2024-10-30] MEDS: LORazepam INJ (*CRX) 2 MG/ML VIAL IV PUSH (20:08)
[2024-10-31] VITALS (15 sets, daily range): BP systolic 154–180; BP diastolic 17–96; PULSE 63–80; RESP 16–20; TEMP 36.5–37.2; O2SAT 94–99
[2024-10-31] MEDS: oxyCODONE/ACETAMINOPHEN (*CRX) 5-325 MG TABLET 1 TABLET PO ×2 (02:06→19:15)
[2024-10-31] MEDS: DICYCLOMINE HCL 10 MG CAPSULE 20 MG PO (02:06)
[2024-10-31 02:17] LABS: Glucose Point of Care 78 mg/dl (65-105)
[2024-10-31] MEDS: HEPARIN SODIUM 5,000 UNITS/ML VIAL 5000 UNITS SUB-Q ×3 (05:33→21:14)
[2024-10-31] MEDS: metroNIDAZOLE 500 MG TABLET PO ×3 (05:33→21:13)
[2024-10-31 05:46] LABS: Alanine Aminotransferase 54 U/L (6-35); Albumin Level 2.9 g/dL (3.5-5.1); Alkaline Phosphatase 149 U/L (38-126); Anion Gap 11 mmol/L (4-12); Aspartate Amino Transferase 61 U/L (14-36); Bilirubin,Total 0.3 mg/dL (0.2-1.3); Blood Urea Nitrogen 20 mg/dL (7-17); Carbon Dioxide 22 mmol/L (22-30); Chloride 110 mmol/L (98-107); Estimated CRCL calculation 24 ml/min; Estimated Glomerular Filt Rate 22; Glucose 85 mg/dL (65-110); Potassium 3.6 mmol/L (3.4-5.0); Sodium 143 mmol/L (137-145)
[2024-10-31] MEDS: SODIUM CHLORIDE 0.9% IV 1,000 ML 100 ML IV CONT (06:57)
[2024-10-31 07:07] LABS: Glucose Point of Care 90 mg/dl (65-105)
[2024-10-31] MEDS: THIAMINE HCL INJ 300 MG in SODIUM CHLORIDE 0.9% IV 100 ML 206 MG IVPB (08:34)
[2024-10-31] MEDS: CEFDINIR 300 MG CAPSULE PO ×2 (08:36→21:13)
[2024-10-31] MEDS: LACTULOSE 20 GM/30 ML UDC PO (08:36)
[2024-10-31] MEDS: amLODIPine BESYLATE 10 MG TABLET PO (08:36)
[2024-10-31] MEDS: ARIPiprazole 5 MG TABLET PO (08:36)
[2024-10-31] MEDS: ASPIRIN 81 MG ENTERIC TABLET PO (08:36)
[2024-10-31] MEDS: MAGNESIUM OXIDE 400 MG TABLET PO (08:36)
[2024-10-31] MEDS: carvediloL 12.5 MG TABLET PO ×2 (08:36→21:13)
[2024-10-31] MEDS: cloNIDine HCL 0.1 MG TABLET PO ×2 (08:36→21:13)
[2024-10-31] MEDS: FOLIC ACID 1 MG/0.2 ML INJ IV PUSH (08:38)
[2024-10-31 10:54] LABS: Hematocrit 31.2 % (37.0-47.0); Mean Corpuscular HGB Conc 32.1 g/dl (32-36); Mean Corpuscular Hemoglobin 30.9 pg (26-34); Mean Corpuscular Volume 96.3 fl (80-100); Mean Platelet Volume 11.1 fl (7.4-10.4); Platelet Count Result 417 k/mm3 (150-375); Red Blood Count 3.24 M/mm3 (4.2-5.4); Red Cell Distribution Width 13.5 % (11.5-14.5); White Blood Count 9.3 K/mm3 (4.5-10.0)
[2024-10-31 12:03] LABS: Glucose Point of Care 85 mg/dl (65-105)
[2024-10-31] MEDS: polyethylene glycoL 3350 17 GM POWD.PACK PO (13:15)
[2024-10-31] MEDS: SODIUM CHLORIDE 0.9% IV 1,000 ML 130 ML IV CONT (15:58)
[2024-10-31] MEDS: LABETALOL HCL INJ 100 MG/20 ML VIAL 10 MG IV PUSH (17:04)
--- NOTE | 2024-10-31 17:51 | PM.IMPN ---
Progress Note: A&P Assessment and Plan (1) Substance abuse: Code(s): F19.10 - Other psychoactive substance abuse, uncomplicated Status: Acute Assessment and Plan: Will continue to follow CIWA scale and manage accordingly. (2) Uncontrolled hypertension: Code(s): I10 - Essential (primary) hypertension Status: Acute Assessment and Plan: Blood pressure is getting better. Continue current treatment monitor closely. (3) NSTEMI (non-ST elevated myocardial infarction): Code(s): I21.4 - Non-ST elevation (NSTEMI) myocardial infarction Status: Acute Assessment and Plan: Stable, continue current treatment. (4) Acute hypokalemia: Code(s): E87.6 - Hypokalemia Status: Acute Assessment and Plan: Replace and monitor. (5) Alcohol abuse: Code(s): F10.10 - Alcohol abuse, uncomplicated Status: Acute Assessment and Plan: Counseling given, continue current treatment (6) Cholecystitis: Code(s): K81.9 - Cholecystitis, unspecified Status: Acute Assessment and Plan: Stable, continue current treatment. Plan Substance abuse Pt drinking alcohol and UDS positive for Amphetamine CIWA pt scoring high s/p Librium and Hydroxyxine Thiamine and folic acid Lorazepam 1 mg q.4 hours p.r.n. for seizure, taper off monitor Agitation, improving ?Underlying psych disorder vs withdrawals Patient however is on 8th day of being sober and off drugs Continue PRN Ativan, stopped Librium Continue Aripiprazole at 5mg daily, decreased from 10mg due to somnolence monitor and adjust Troponin elevation As per Cardiology -most likely as a result of her uncontrolled hypertension as well as the positive urine drug screen for methamphetamine -echocardiogram review normal biventricular systolic function with severe left ventricular hypertrophy HTN s/p Nitro drip Clonidine 0.1mg PO BID, Coreg 12.5 mg PO BID,Amlodipine 10mg PO QD. Lisinopril 40mg PO in hold due to OMAIRA monitor and adjust with clinic Cholecystitis US Abd:1. Distended gallbladder with sludge. Severe gallbladder wall thickening may be seen with chronic liver disease or chronic cholecystitis. No sonographic Fernando's sign to suggest acute cholecystitis. If there is clinical concern for acute cholecystitis, consider hepatobiliary scintigraphy. CT Abd/Pelvis:Probable gallbladder sludge and diffuse gallbladder wall thickening/edematous change. Correlate for acute cholecystitis. Consider ultrasound and/or HIDA scan for further evaluation.Air in urinary bladder, which may be iatrogenic. Correlate clinically.2 mm nonobstructing left renal stone. S/p Cefepime and Flagyl, now on PO Cefdinir and Flagyl Plan is to complete 14 days of total antibiotics Liver enzymes resolved Surgery recommended no intervention Elevated liver enzymes, resolved Likely from alcohol and drug abuse resolving OMAIRA Cr 1.78, baseline normal restarted on IVF and monitor Lisinopril on hol d encourage oral intake DVT prophylaxis on Sq Lovenox Awaiting resolution of OMAIRA for discharge Subjective Date/time seen: 10/31/24 17:51 Interval history: Patient fluid rate has been increased due to OMAIRA. Will continue to monitor. Discussed with the sister and the goals of care Review of Systems Review of Systems: Pt is somnolent having high ciwa scores All systems reviewed & are unremarkable except as noted in HPI and below ROS unobtainable: Yes unobtainable due to medical condition and unobtainable due to mental status Exam Narrative: General: Drowsy Lungs/Chest: Trachea central Clear BS B/L, No crackles or wheezing. Cardiac: RRR. Normal S1 S2. No murmurs Circulation: Pedal pulses are intact and symmetrical. Abdomen: Normal bowel sounds.. Soft. NT. ND. Extremities: No clubbing, cyanosis or edema. Warm : Daniel in place Neurologic: Drowsy Objective Data Vital Signs Vital Signs: Vital Signs - 24 hr 10/30/24 20:00 10/30/24 20:00 10/30/24 20:00 Temperature Pulse Rate 62 79 Pulse Rate [Right Radial Palpation] 73 Respiratory Rate 18 Blood Pressure Pulse Oximetry 95 Oxygen Delivery Room Air 10/30/24 21:53 10/30/24 22:40 10/31/24 00:00 Temperature 98.6 F Pulse Rate 73 61 Pulse Rate [Right Radial Palpation] 64 Respiratory Rate 18 Blood Pressure 173/94 H Pulse Oximetry 96 Oxygen Delivery 10/31/24 00:00 10/31/24 03:59 10/31/24 04:00 Temperature Pulse Rate 64 63 Pulse Rate [Right Radial Palpation] 66 Respiratory Rate Blood Pressure Pulse Oximetry Oxygen Delivery 10/31/24 06:25 10/31/24 08:32 10/31/24 08:36 Temperature 98.9 F 97.7 F Pulse Rate 71 69 69 Pulse Rate [Right Radial Palpation] Respiratory Rate 20 16 Blood Pressure 176/81 H 163/91 H Pulse Oximetry 94 99 Oxygen Delivery 10/31/24 08:36 10/31/24 08:36 10/31/24 08:36 Temperature Pulse Rate 69 69 Pulse Rate [Right Radial Palpation] 69 Respiratory Rate 16 Blood Pressure 163/17 H Pulse Oximetry 99 Oxygen Delivery Room Air 10/31/24 12:00 10/31/24 12:00 10/31/24 16:00 Temperature Pulse Rate 69 68 Pulse Rate [Right Radial Palpation] 72 Respiratory Rate Blood Pressure 154/94 H Pulse Oximetry Oxygen Delivery 10/31/24 16:00 10/31/24 17:04 Temperature Pulse Rate 73 Pulse Rate [Right Radial Palpation] 70 Respiratory Rate Blood Pressure 180/96 H Pulse Oximetry Oxygen Delivery Intake/Output Intake/Output: Intake & Output 10/28/24 10/29/24 10/30/24 10/31/24 23:59 23:59 23:59 23:59 Intake Total 523 1443 3093 2933.0 Output Total 3600 Balance 523 1443 3093 -667.0 Meds/Results Medications: Active Medications Generic Name Dose Route Start Last Admin Trade Name Freq PRN Reason Stop Dose Admin Acetaminophen 500 mg 10/25/24 19:58 Acetaminophen 500 Mg Tablet PO Q4H PRN Mild Pain (1-3) or Fever Al Hydrox/Mg Hydrox/Simethicone 30 ml 10/19/24 17:51 10/21/24 14:06 Mag Hydrox/Al Hydrox/Simeth 30 Ml Udc PO 30 ml Q6H PRN Administration Indigestion Amlodipine Besylate 10 mg 10/20/24 12:10 10/31/24 08:36 Amlodipine Besylate 10 Mg Tablet PO 10 mg DAILY NIXON Administration Aripiprazole 5 mg 10/29/24 09:00 10/31/24 08:36 Aripiprazole 5 Mg Tablet PO 5 mg DAILY NIXON Administration Aspirin 81 mg 10/19/24 09:00 10/31/24 08:36 Aspirin 81 Mg Enteric Tablet PO 81 mg QAM NIXON Administration Carvedilol 12.5 mg 10/20/24 21:00 10/31/24 08:36 Carvedilol 12.5 Mg Tablet PO 12.5 mg Q12HR NIXON Administration Cefdinir 300 mg 10/28/24 12:00 10/31/24 08:36 Cefdinir 300 Mg Capsule PO 11/01/24 21:01 300 mg Q12HR NIXON Administration Clonidine HCl 0.1 mg 10/20/24 09:00 10/31/24 08:36 Clonidine Hcl 0.1 Mg Tablet PO 0.1 mg Q12HR NIXON Administration Dicyclomine HCl 20 mg 10/20/24 08:44 10/31/24 02:06 Dicyclomine Hcl 10 Mg Capsule PO 20 mg QID PRN Administration Abdominal Cramping Folic Acid 1 mg 10/19/24 09:00 10/31/24 08:38 Folic Acid 1 Mg/0.2 Ml Inj IV PUSH 1 mg QAM NIXON Administration Heparin Sodium (Porcine) 5,000 units 10/25/24 14:00 10/31/24 13:14 Heparin Sodium 5,000 Units/Ml Vial SUB-Q 5,000 units Q8HR NIXON Administration Hydralazine HCl 20 mg 10/19/24 08:20 Hydralazine Hcl 20 Mg/Ml Vial IV PUSH Q4H PRN SBP more than 180 Thiamine HCl 300 mg/ Sodium 103 mls @ 206 mls/hr 10/19/24 09:00 10/31/24 09:04 Chloride IVPB Infused DAILY NIXON Infusion Sodium Chloride 1,000 mls @ 130 mls/hr 10/29/24 09:45 10/31/24 15:58 Normal Saline Iv IV CONT 130 mls/hr .Q7H42M NIXON Administration Labetalol HCl 10 mg 10/19/24 14:15 10/31/24 17:04 Labetalol Hcl Inj 100 Mg/20 Ml Vial IV PUSH 10 mg Q4H PRN Administration SBP > 180 -1st choce Lactulose 20 gm 10/21/24 09:40 10/31/24 08:36 Lactulose 20 Gm/30 Ml Udc PO 20 gm QAM NIXON Administration Lisinopril 40 mg 10/19/24 09:00 10/21/24 09:54 Lisinopril 20 Mg Tablet PO 40 mg QAM NIXON Administration Lorazepam 2 mg 10/23/24 21:43 10/30/24 20:08 Lorazepam Inj (*Crx) 2 Mg/Ml Vial IV PUSH 2 mg Q4H PRN Administration CIWA 8-15 Lorazepam 1 mg 10/29/24 09:39 10/30/24 09:55 Lorazepam Inj (*Crx) 2 Mg/Ml Vial IV PUSH 1 mg Q4H PRN Administration CIWA > 15 Magnesium Oxide 400 mg 10/31/24 09:00 10/31/24 08:36 Magnesium Oxide 400 Mg Tablet PO 400 mg DAILY NIXON Administration Metronidazole 500 mg 10/28/24 16:00 10/31/24 13:14 Metronidazole 500 Mg Tablet PO 11/01/24 22:01 500 mg Q8HR NIXON Administration Miscellaneous Information 1 each 10/29/24 00:01 Percocet Needs To Be Renewed Or It Will Automatically Discontinue. XX 11/28/24 00:00 CLARIFY [facility] Nicotine Polacrilex 2 mg 10/22/24 22:58 10/22/24 23:13 Nicotine (*Pbkc) 2 Mg Gum PO 2 mg PRN PRN Administration Nicotine Cravings Ondansetron HCl 4 mg 10/18/24 21:09 10/21/24 14:06 Ondansetron Inj 4 Mg/2 Ml Vial IV PUSH 4 mg Q4H PRN Administration Nausea Oxycodone/Acetaminophen 1 tablet 10/20/24 09:09 10/31/24 02:06 Oxycodone/Acetaminophen (*Crx) 5-325 Mg Tablet PO 1 tablet Q4H PRN Administration Pain Rated 7-10 Polyethylene Glycol 17 gm 10/21/24 04:00 10/31/24 13:15 Polyethylene Glycol 3350 17 Gm Powd.Pack PO 17 gm Q8HR [facility] Administration Senna/Docusate Sodium 1 tab 10/20/24 21:00 10/30/24 21:58 Senna/Docusate Sodium Tablet PO Not Given HS [facility] Radiology Results: ITS Impressions Forearm X-Ray 10/18/24 16:37 IMPRESSION: No acute fracture or dislocation Chest X-Ray 10/18/24 21:11 IMPRESSION: 1. No acute cardiopulmonary disease. Head CT 10/19/24 05:45 Impression: No significant abnormality seen. Abdomen/Pelvis CT 10/21/24 05:24 Impression: Probable gallbladder sludge and diffuse gallbladder wall thickening/edematous change. Correlate for acute cholecystitis. Consider ultrasound and/or HIDA scan for further evaluation. Air in urinary bladder, which may be iatrogenic. Correlate clinically. 2 mm nonobstructing left renal stone. Upper Quadrant Ultrasound 10/21/24 08:18 IMPRESSION: 1. Distended gallbladder with sludge. Severe gallbladder wall thickening may be seen with chronic liver disease or chronic cholecystitis. No sonographic Fernando's sign to suggest acute cholecystitis. If there is clinical concern for acute cholecystitis, consider hepatobiliary scintigraphy. Head/Neck CTA 10/22/24 06:50 Impression: No significant abnormality. Abdomen X-Ray 10/28/24 19:13 IMPRESSION: Nonspecific, nonobstructive bowel gas pattern, as detailed above. Renal Ultrasound 10/31/24 14:12 IMPRESSION: No definite abnormality seen in both kidneys. Labs Labs: Laboratory Results - last 24 hr 10/31/24 10/31/24 10/31/24 02:10 05:06 07:00 WBC 9.3 RBC 3.24 L Hgb 10.0 L Hct 31.2 L MCV 96.3 MCH 30.9 MCHC 32.1 RDW 13.5 Plt Count 417 H MPV 11.1 H Sodium 143 Potassium 3.6 Chloride 110 H Carbon Dioxide 22 Anion Gap 11 BUN 20 H Creatinine 2.38 H Estim Creat Clear Calc 24 Estimated GFR 22 L Glucose 85 POC Capillary Glucose 78 90 Calcium 8.0 L Total Bilirubin 0.3 AST 61 H ALT 54 H Alkaline Phosphatase 149 H Total Protein 6.0 L Albumin 2.9 L 10/31/24 12:00 WBC RBC Hgb Hct MCV MCH MCHC RDW Plt Count MPV Sodium Potassium Chloride Carbon Dioxide Anion Gap BUN Creatinine Estim Creat Clear Calc Estimated GFR Glucose POC Capillary Glucose 85 Calcium Total Bilirubin AST ALT Alkaline Phosphatase Total Protein Albumin Quality VTE Prophylaxis VTE prophylaxis: pharmacologic ordered Hospitalist MIPS Advance Care Plan I have confirmed that the patient's Advanced Care Plan is present, code status is documented, or surrogate decision maker is listed in patient medical record.: Yes Medication Reconciliation I have utilized all available resources to obtain, update and review the patients current medications (includes all prescriptions, OTC, herbals, cannabis, and nutritional supplements).: Yes
[2024-10-31 18:47] LABS: Glucose Point of Care 127 mg/dl (65-105)
[2024-10-31] MEDS: LORazepam INJ (*CRX) 2 MG/ML VIAL 1 MG IV PUSH (20:16)
[2024-10-31] MEDS: SENNA/DOCUSATE SODIUM TABLET 1 TAB PO (21:13)
[2024-11-01] VITALS (9 sets, daily range): BP systolic 139–159; BP diastolic 68–84; PULSE 18–78; RESP 17–18; TEMP 36.2–36.8; O2SAT 93–95
[2024-11-01] MEDS: SODIUM CHLORIDE 0.9% IV 1,000 ML 130 ML IV CONT ×3 (00:01→16:41)
[2024-11-01 00:10] LABS: Glucose Point of Care 81 mg/dl (65-105)
[2024-11-01] MEDS: oxyCODONE/ACETAMINOPHEN (*CRX) 5-325 MG TABLET 1 TABLET PO ×5 (02:20→22:39)
[2024-11-01 05:28] LABS: Hematocrit 29.6 % (37.0-47.0); Hemoglobin 9.7 g/dL (12.0-15.0); Mean Corpuscular HGB Conc 32.8 g/dl (32-36); Mean Corpuscular Hemoglobin 30.3 pg (26-34); Mean Corpuscular Volume 92.5 fl (80-100); Mean Platelet Volume 10.4 fl (7.4-10.4); Platelet Count Result 373 k/mm3 (150-375); Red Cell Distribution Width 13.3 % (11.5-14.5); White Blood Count 12.2 K/mm3 (4.5-10.0)
[2024-11-01] MEDS: HEPARIN SODIUM 5,000 UNITS/ML VIAL 5000 UNITS SUB-Q ×3 (05:34→21:10)
[2024-11-01] MEDS: metroNIDAZOLE 500 MG TABLET PO ×3 (05:34→21:10)
[2024-11-01 05:46] LABS: Alanine Aminotransferase 49 U/L (6-35); Albumin Level 2.8 g/dL (3.5-5.1); Alkaline Phosphatase 132 U/L (38-126); Anion Gap 5 mmol/L (4-12); Aspartate Amino Transferase 52 U/L (14-36); Bilirubin,Total 0.2 mg/dL (0.2-1.3); Blood Urea Nitrogen 13 mg/dL (7-17); Carbon Dioxide 28 mmol/L (22-30); Chloride 108 mmol/L (98-107); Estimated CRCL calculation 37 ml/min; Estimated Glomerular Filt Rate 37; Glucose 101 mg/dL (65-110); Potassium 3.3 mmol/L (3.4-5.0); Sodium 141 mmol/L (137-145)
[2024-11-01 07:07] LABS: Glucose Point of Care 83 mg/dl (65-105)
[2024-11-01] MEDS: THIAMINE HCL INJ 300 MG in SODIUM CHLORIDE 0.9% IV 100 ML 206 MG IVPB (08:50)
[2024-11-01] MEDS: LACTULOSE 20 GM/30 ML UDC PO (08:55)
[2024-11-01] MEDS: ARIPiprazole 5 MG TABLET PO (08:55)
[2024-11-01] MEDS: CEFDINIR 300 MG CAPSULE PO ×2 (08:55→21:10)
[2024-11-01] MEDS: carvediloL 12.5 MG TABLET PO ×2 (08:55→21:09)
[2024-11-01] MEDS: cloNIDine HCL 0.1 MG TABLET PO ×2 (08:55→21:10)
[2024-11-01] MEDS: amLODIPine BESYLATE 10 MG TABLET PO (08:55)
[2024-11-01] MEDS: MAGNESIUM OXIDE 400 MG TABLET PO (08:55)
[2024-11-01] MEDS: ASPIRIN 81 MG ENTERIC TABLET PO (08:56)
[2024-11-01] MEDS: FOLIC ACID 1 MG/0.2 ML INJ IV PUSH (08:57)
--- NOTE | 2024-11-01 09:23 | P.PNIM_ITS ---
Progress Note: A&P Assessment and Plan (1) Substance abuse: Code(s): F19.10 - Other psychoactive substance abuse, uncomplicated Status: Acute Assessment and Plan: Will continue to follow CIWA scale and manage accordingly. (2) Uncontrolled hypertension: Code(s): I10 - Essential (primary) hypertension Status: Acute Assessment and Plan: Blood pressure is getting better. Continue current treatment monitor closely. (3) NSTEMI (non-ST elevated myocardial infarction): Code(s): I21.4 - Non-ST elevation (NSTEMI) myocardial infarction Status: Acute Assessment and Plan: Stable, continue current treatment. (4) Acute hypokalemia: Code(s): E87.6 - Hypokalemia Status: Acute Assessment and Plan: Replace and monitor. (5) Alcohol abuse: Code(s): F10.10 - Alcohol abuse, uncomplicated Status: Acute Assessment and Plan: Counseling given, continue current treatment (6) Cholecystitis: Code(s): K81.9 - Cholecystitis, unspecified Status: Acute Assessment and Plan: Stable, continue current treatment. Plan Substance abuse Pt drinking alcohol and UDS positive for Amphetamine CIWA pt scoring high s/p Librium and Hydroxyxine Thiamine and folic acid Lorazepam 1 mg q.4 hours p.r.n. for seizure, taper off monitor Agitation, improving ?Underlying psych disorder vs withdrawals Patient however is on 8th day of being sober and off drugs Continue PRN Ativan, stopped Librium Continue Aripiprazole at 5mg daily, decreased from 10mg due to somnolence monitor and adjust Troponin elevation As per Cardiology -most likely as a result of her uncontrolled hypertension as well as the positive urine drug screen for methamphetamine -echocardiogram review normal biventricular systolic function with severe left ventricular hypertrophy HTN s/p Nitro drip Clonidine 0.1mg PO BID, Coreg 12.5 mg PO BID,Amlodipine 10mg PO QD. Lisinopril 40mg PO in hold due to OMAIRA monitor and adjust with clinic Cholecystitis US Abd:1. Distended gallbladder with sludge. Severe gallbladder wall thickening may be seen with chronic liver disease or chronic cholecystitis. No sonographic Fernando's sign to suggest acute cholecystitis. If there is clinical concern for acute cholecystitis, consider hepatobiliary scintigraphy. CT Abd/Pelvis:Probable gallbladder sludge and diffuse gallbladder wall thickening/edematous change. Correlate for acute cholecystitis. Consider ultrasound and/or HIDA scan for further evaluation.Air in urinary bladder, which may be iatrogenic. Correlate clinically.2 mm nonobstructing left renal stone. S/p Cefepime and Flagyl, now on PO Cefdinir and Flagyl Plan is to complete 14 days of total antibiotics Liver enzymes resolved Surgery recommended no intervention Elevated liver enzymes, resolved Likely from alcohol and drug abuse resolving OMAIRA Cr 1.78, baseline normal restarted on IVF and monitor Lisinopril on hol d encourage oral intake DVT prophylaxis on Sq Lovenox Awaiting resolution of OMAIRA for discharge Subjective Date/time seen: 11/01/24 09:23 Interval history: Patient denies any complaints including any chest pain or abdominal pain. Her creatinine has been improved will continue the IV fluids. Will monitor the rise in WBC. Review of Systems Review of Systems: Pt is somnolent having high ciwa scores All systems reviewed & are unremarkable except as noted in HPI and below ROS unobtainable: Yes unobtainable due to medical condition and unobtainable due to mental status Exam Narrative: General: Drowsy Lungs/Chest: Trachea central Clear BS B/L, No crackles or wheezing. Cardiac: RRR. Normal S1 S2. No murmurs Circulation: Pedal pulses are intact and symmetrical. Abdomen: Normal bowel sounds.. Soft. NT. ND. Extremities: No clubbing, cyanosis or edema. Warm : Daniel in place Neurologic: Drowsy Objective Data Vital Signs Vital Signs: Vital Signs - 24 hr 10/31/24 12:00 10/31/24 12:00 10/31/24 16:00 Temperature Pulse Rate 69 68 Pulse Rate [Right Radial Palpation] 72 Respiratory Rate Blood Pressure 154/94 H Pulse Oximetry Oxygen Delivery 10/31/24 16:00 10/31/24 17:04 10/31/24 18:01 Temperature Pulse Rate 73 Pulse Rate [Right Radial Palpation] 70 Respiratory Rate Blood Pressure 180/96 H 168/74 H Pulse Oximetry Oxygen Delivery 10/31/24 19:59 10/31/24 20:00 10/31/24 20:00 Temperature Pulse Rate 73 80 Pulse Rate [Right Radial Palpation] 80 Respiratory Rate 16 Blood Pressure Pulse Oximetry 99 Oxygen Delivery Room Air 10/31/24 20:11 10/31/24 21:11 10/31/24 21:13 Temperature 98.6 F Pulse Rate 69 71 Pulse Rate [Right Radial Palpation] 78 Respiratory Rate 16 Blood Pressure 171/75 H Pulse Oximetry 97 Oxygen Delivery 11/01/24 00:00 11/01/24 00:00 11/01/24 04:00 Temperature Pulse Rate 68 Pulse Rate [Right Radial Palpation] 70 69 Respiratory Rate Blood Pressure Pulse Oximetry Oxygen Delivery 11/01/24 04:00 11/01/24 08:48 11/01/24 08:55 Temperature 97.2 F L Pulse Rate 69 18 L 68 Pulse Rate [Right Radial Palpation] Respiratory Rate 18 Blood Pressure 157/69 H Pulse Oximetry 93 Oxygen Delivery 11/01/24 08:55 11/01/24 08:55 11/01/24 08:55 Temperature Pulse Rate 78 Pulse Rate [Right Radial Palpation] 68 Respiratory Rate 18 Blood Pressure 157/69 H Pulse Oximetry 93 Oxygen Delivery Room Air Intake/Output Intake/Output: Intake & Output 10/29/24 10/30/24 10/31/24 11/01/24 23:59 23:59 23:59 23:59 Intake Total 1443 3093 4291.0 1500 Output Total 4300 2700 Balance 1443 3093 -9.0 -1200 Meds/Results Medications: Active Medications Generic Name Dose Route Start Last Admin Trade Name Freq PRN Reason Stop Dose Admin Acetaminophen 500 mg 10/25/24 19:58 Acetaminophen 500 Mg Tablet PO Q4H PRN Mild Pain (1-3) or Fever Al Hydrox/Mg Hydrox/Simethicone 30 ml 10/19/24 17:51 10/21/24 14:06 Mag Hydrox/Al Hydrox/Simeth 30 Ml Udc PO 30 ml Q6H PRN Administration Indigestion Amlodipine Besylate 10 mg 10/20/24 12:10 11/01/24 08:55 Amlodipine Besylate 10 Mg Tablet PO 10 mg DAILY [facility] Administration Aripiprazole 5 mg 10/29/24 09:00 11/01/24 08:55 Aripiprazole 5 Mg Tablet PO 5 mg DAILY [facility] Administration Aspirin 81 mg 10/19/24 09:00 11/01/24 08:56 Aspirin 81 Mg Enteric Tablet PO 81 mg QAM [facility] Administration Carvedilol 12.5 mg 10/20/24 21:00 11/01/24 08:55 Carvedilol 12.5 Mg Tablet PO 12.5 mg Q12HR [facility] Administration Cefdinir 300 mg 10/28/24 12:00 11/01/24 08:55 Cefdinir 300 Mg Capsule PO 11/01/24 21:01 300 mg Q12HR [facility] Administration Clonidine HCl 0.1 mg 10/20/24 09:00 11/01/24 08:55 Clonidine Hcl 0.1 Mg Tablet PO 0.1 mg Q12HR [facility] Administration Dicyclomine HCl 20 mg 10/20/24 08:44 10/31/24 02:06 Dicyclomine Hcl 10 Mg Capsule PO 20 mg QID PRN Administration Abdominal Cramping Folic Acid 1 mg 10/19/24 09:00 11/01/24 08:57 Folic Acid 1 Mg/0.2 Ml Inj IV PUSH 1 mg QAM [facility] Administration Heparin Sodium (Porcine) 5,000 units 10/25/24 14:00 11/01/24 05:34 Heparin Sodium 5,000 Units/Ml Vial SUB-Q 5,000 units Q8HR [facility] Administration Hydralazine HCl 20 mg 10/19/24 08:20 Hydralazine Hcl 20 Mg/Ml Vial IV PUSH Q4H PRN SBP more than 180 Thiamine HCl 300 mg/ Sodium 103 mls @ 206 mls/hr 10/19/24 09:00 11/01/24 08:50 Chloride IVPB 206 mls/hr DAILY [facility] Administration Sodium Chloride 1,000 mls @ 130 mls/hr 10/29/24 09:45 11/01/24 07:53 Normal Saline Iv IV CONT 130 mls/hr .Q7H42M [facility] Administration Labetalol HCl 10 mg 10/19/24 14:15 10/31/24 17:04 Labetalol Hcl Inj 100 Mg/20 Ml Vial IV PUSH 10 mg Q4H PRN Administration SBP > 180 -1st choce Lactulose 20 gm 10/21/24 09:40 11/01/24 08:55 Lactulose 20 Gm/30 Ml Udc PO 20 gm QAM [facility] Administration Lisinopril 40 mg 10/19/24 09:00 10/21/24 09:54 Lisinopril 20 Mg Tablet PO 40 mg QAM [facility] Administration Lorazepam 2 mg 10/23/24 21:43 10/30/24 20:08 Lorazepam Inj (*Crx) 2 Mg/Ml Vial IV PUSH 2 mg Q4H PRN Administration CIWA 8-15 Lorazepam 1 mg 10/29/24 09:39 10/31/24 20:16 Lorazepam Inj (*Crx) 2 Mg/Ml Vial IV PUSH 1 mg Q4H PRN Administration CIWA > 15 Magnesium Oxide 400 mg 10/31/24 09:00 11/01/24 08:55 Magnesium Oxide 400 Mg Tablet PO 400 mg DAILY N[facility]ON Administration Metronidazole 500 mg 10/28/24 16:00 11/01/24 05:34 Metronidazole 500 Mg Tablet PO 11/01/24 22:01 500 mg Q8HR [facility] Administration Miscellaneous Information 1 each 10/29/24 00:01 Percocet Needs To Be Renewed Or It Will Automatically Discontinue. XX 11/28/24 00:00 CLARIFY [facility] Nicotine Polacrilex 2 mg 10/22/24 22:58 10/22/24 23:13 Nicotine (*Pbkc) 2 Mg Gum PO 2 mg PRN PRN Administration Nicotine Cravings Ondansetron HCl 4 mg 10/18/24 21:09 10/21/24 14:06 Ondansetron Inj 4 Mg/2 Ml Vial IV PUSH 4 mg Q4H PRN Administration Nausea Oxycodone/Acetaminophen 1 tablet 10/20/24 09:09 11/01/24 06:26 Oxycodone/Acetaminophen (*Crx) 5-325 Mg Tablet PO 1 tablet Q4H PRN Administration Pain Rated 7-10 Polyethylene Glycol 17 gm 10/21/24 04:00 11/01/24 05:34 Polyethylene Glycol 3350 17 Gm Powd.Pack PO Not Given Q8HR [facility] Senna/Docusate Sodium 1 tab 10/20/24 21:00 10/31/24 21:13 Senna/Docusate Sodium Tablet PO 1 tab HS [facility] Administration Radiology Results: ITS Impressions Forearm X-Ray 10/18/24 16:37 IMPRESSION: No acute fracture or dislocation Chest X-Ray 10/18/24 21:11 IMPRESSION: 1. No acute cardiopulmonary disease. Head CT 10/19/24 05:45 Impression: No significant abnormality seen. Abdomen/Pelvis CT 10/21/24 05:24 Impression: Probable gallbladder sludge and diffuse gallbladder wall thickening/edematous change. Correlate for acute cholecystitis. Consider ultrasound and/or HIDA scan for further evaluation. Air in urinary bladder, which may be iatrogenic. Correlate clinically. 2 mm nonobstructing left renal stone. Upper Quadrant Ultrasound 10/21/24 08:18 IMPRESSION: 1. Distended gallbladder with sludge. Severe gallbladder wall thickening may be seen with chronic liver disease or chronic cholecystitis. No sonographic Fernando's sign to suggest acute cholecystitis. If there is clinical concern for acute cholecystitis, consider hepatobiliary scintigraphy. Head/Neck CTA 10/22/24 06:50 Impression: No significant abnormality. Abdomen X-Ray 10/28/24 19:13 IMPRESSION: Nonspecific, nonobstructive bowel gas pattern, as detailed above. Renal Ultrasound 10/31/24 14:12 IMPRESSION: No definite abnormality seen in both kidneys. Labs Labs: Laboratory Results - last 24 hr 10/31/24 10/31/24 10/31/24 05:06 12:00 18:38 WBC 9.3 RBC 3.24 L Hgb 10.0 L Hct 31.2 L MCV 96.3 MCH 30.9 MCHC 32.1 RDW 13.5 Plt Count 417 H MPV 11.1 H Sodium Potassium Chloride Carbon Dioxide Anion Gap BUN Creatinine Estim Creat Clear Calc Estimated GFR Glucose POC Capillary Glucose 85 127 H Calcium Total Bilirubin AST ALT Alkaline Phosphatase Total Protein Albumin 10/31/24 11/01/24 11/01/24 23:50 05:08 07:00 WBC 12.2 H RBC 3.20 L Hgb 9.7 L Hct 29.6 L MCV 92.5 MCH 30.3 MCHC 32.8 RDW 13.3 Plt Count 373 MPV 10.4 Sodium 141 Potassium 3.3 L Chloride 108 H Carbon Dioxide 28 Anion Gap 5 BUN 13 D Creatinine 1.49 H Estim Creat Clear Calc 37 Estimated GFR 37 L Glucose 101 POC Capillary Glucose 81 83 Calcium 8.0 L Total Bilirubin 0.2 AST 52 H ALT 49 H Alkaline Phosphatase 132 H Total Protein 6.0 L Albumin 2.8 L Quality VTE Prophylaxis VTE prophylaxis: pharmacologic ordered Hospitalist MIPS Advance Care Plan I have confirmed that the patient's Advanced Care Plan is present, code status is documented, or surrogate decision maker is listed in patient medical record.: Yes Medication Reconciliation I have utilized all available resources to obtain, update and review the patients current medications (includes all prescriptions, OTC, herbals, cannabis, and nutritional supplements).: Yes
[2024-11-01 12:21] LABS: Glucose Point of Care 160 mg/dl (65-105)
[2024-11-01] MEDS: polyethylene glycoL 3350 17 GM POWD.PACK PO (13:05)
[2024-11-01] MEDS: CYCLOBENZAPRINE HCL 10 MG TABLET PO (17:57)
[2024-11-01 18:46] LABS: Glucose Point of Care 91 mg/dl (65-105)
[2024-11-02] VITALS (7 sets, daily range): BP systolic 129–161; BP diastolic 68–86; PULSE 59–64; RESP 14–17; TEMP 36.7–36.9; O2SAT 99–100
[2024-11-02] MEDS: SODIUM CHLORIDE 0.9% IV 1,000 ML 130 ML IV CONT (03:20)
[2024-11-02] MEDS: polyethylene glycoL 3350 17 GM POWD.PACK PO ×2 (05:05→14:01)
[2024-11-02] MEDS: HEPARIN SODIUM 5,000 UNITS/ML VIAL 5000 UNITS SUB-Q ×3 (05:05→20:23)
[2024-11-02 05:19] LABS: Hematocrit 29.8 % (37.0-47.0); Hemoglobin 9.8 g/dL (12.0-15.0); Mean Corpuscular HGB Conc 32.9 g/dl (32-36); Mean Corpuscular Hemoglobin 30.5 pg (26-34); Mean Corpuscular Volume 92.8 fl (80-100); Mean Platelet Volume 10.7 fl (7.4-10.4); Platelet Count Result 303 k/mm3 (150-375); Red Blood Count 3.21 M/mm3 (4.2-5.4); Red Cell Distribution Width 13.3 % (11.5-14.5); White Blood Count 7.9 K/mm3 (4.5-10.0)
[2024-11-02 05:22] LABS: Alanine Aminotransferase 42 U/L (6-35); Albumin Level 2.8 g/dL (3.5-5.1); Alkaline Phosphatase 119 U/L (38-126); Anion Gap 5 mmol/L (4-12); Aspartate Amino Transferase 34 U/L (14-36); Bilirubin,Total 0.1 mg/dL (0.2-1.3); Blood Urea Nitrogen 11 mg/dL (7-17); Calcium 7.5 mg/dL (8.4-10.2); Carbon Dioxide 32 mmol/L (22-30); Chloride 103 mmol/L (98-107); Estimated CRCL calculation 50 ml/min; Estimated Glomerular Filt Rate 52; Glucose 129 mg/dL (65-110); Potassium 3.1 mmol/L (3.4-5.0); Sodium 140 mmol/L (137-145)
[2024-11-02] MEDS: oxyCODONE/ACETAMINOPHEN (*CRX) 5-325 MG TABLET 1 TABLET PO ×3 (06:47→23:33)
[2024-11-02] MEDS: cloNIDine HCL 0.1 MG TABLET PO ×2 (08:57→20:23)
[2024-11-02] MEDS: POTASSIUM CHLORIDE 20 MEQ ER TABLET 60 MEQ PO (08:57)
[2024-11-02] MEDS: carvediloL 12.5 MG TABLET PO ×2 (08:57→20:23)
[2024-11-02] MEDS: ASPIRIN 81 MG ENTERIC TABLET PO (08:57)
[2024-11-02] MEDS: MAGNESIUM OXIDE 400 MG TABLET PO (08:57)
[2024-11-02] MEDS: amLODIPine BESYLATE 10 MG TABLET PO (08:57)
[2024-11-02] MEDS: ARIPiprazole 5 MG TABLET PO (08:57)
[2024-11-02] MEDS: THIAMINE HCL INJ 300 MG in SODIUM CHLORIDE 0.9% IV 100 ML 206 MG IVPB (08:58)
[2024-11-02] MEDS: LACTULOSE 20 GM/30 ML UDC PO (08:58)
[2024-11-02] MEDS: FOLIC ACID 1 MG/0.2 ML INJ IV PUSH (08:58)
--- NOTE | 2024-11-02 09:49 | PM.IMPN ---
Progress Note: A&P Assessment and Plan (1) Substance abuse: Code(s): F19.10 - Other psychoactive substance abuse, uncomplicated Status: Acute Assessment and Plan: Will continue to follow CIWA scale and manage accordingly. (2) Uncontrolled hypertension: Code(s): I10 - Essential (primary) hypertension Status: Acute Assessment and Plan: Blood pressure is getting better. Continue current treatment monitor closely. (3) NSTEMI (non-ST elevated myocardial infarction): Code(s): I21.4 - Non-ST elevation (NSTEMI) myocardial infarction Status: Acute Assessment and Plan: Stable, continue current treatment. (4) Acute hypokalemia: Code(s): E87.6 - Hypokalemia Status: Acute Assessment and Plan: Replace and monitor. (5) Alcohol abuse: Code(s): F10.10 - Alcohol abuse, uncomplicated Status: Acute Assessment and Plan: Counseling given, continue current treatment (6) Cholecystitis: Code(s): K81.9 - Cholecystitis, unspecified Status: Acute Assessment and Plan: Stable, continue current treatment. Plan Substance abuse Pt drinking alcohol and UDS positive for Amphetamine CIWA pt scoring high s/p Librium and Hydroxyxine Thiamine and folic acid Lorazepam 1 mg q.4 hours p.r.n. for seizure, taper off monitor Agitation, improving ?Underlying psych disorder vs withdrawals Patient being sober and off drugs Continue PRN Ativan, stopped Librium Continue Aripiprazole at 5mg daily, decreased from 10mg due to somnolence monitor and adjust Troponin elevation As per Cardiology -most likely as a result of her uncontrolled hypertension as well as the positive urine drug screen for methamphetamine -echocardiogram review normal biventricular systolic function with severe left ventricular hypertrophy HTN s/p Nitro drip Continue Clonidine 0.1mg PO BID, Coreg 12.5 mg PO BID,Amlodipine 10mg PO QD. Lisinopril 40mg PO in hold due to OMAIRA monitor and adjust with clinic Cholecystitis US Abd:1. Distended gallbladder with sludge. Severe gallbladder wall thickening may be seen with chronic liver disease or chronic cholecystitis. No sonographic Fernando's sign to suggest acute cholecystitis. If there is clinical concern for acute cholecystitis, consider hepatobiliary scintigraphy. CT Abd/Pelvis:Probable gallbladder sludge and diffuse gallbladder wall thickening/edematous change. Correlate for acute cholecystitis. Consider ultrasound and/or HIDA scan for further evaluation.Air in urinary bladder, which may be iatrogenic. Correlate clinically.2 mm nonobstructing left renal stone. S/p Cefepime and Flagyl, now on PO Cefdinir and Flagyl Plan is to complete 14 days of total antibiotics Liver enzymes resolved Surgery recommended no intervention Elevated liver enzymes, resolved Likely from alcohol and drug abuse resolving OMAIRA Cr 1.11, baseline normal Discontinue IVF and monitor Lisinopril on hol d encourage oral intake DVT prophylaxis on Sq Lovenox Awaiting resolution of OMAIRA for discharge Subjective Date/time seen: 11/02/24 09:49 Interval history: Discontinue fluids. Will encourage oral intake. Review of Systems Review of Systems: Pt is somnolent having high ciwa scores All systems reviewed & are unremarkable except as noted in HPI and below ROS unobtainable: Yes unobtainable due to medical condition and unobtainable due to mental status Exam Narrative: General: Drowsy Lungs/Chest: Trachea central Clear BS B/L, No crackles or wheezing. Cardiac: RRR. Normal S1 S2. No murmurs Circulation: Pedal pulses are intact and symmetrical. Abdomen: Normal bowel sounds.. Soft. NT. ND. Extremities: No clubbing, cyanosis or edema. Warm : Daniel in place Neurologic: Drowsy Objective Data Vital Signs Vital Signs: Vital Signs - 24 hr 11/01/24 12:00 11/01/24 12:00 11/01/24 16:00 Temperature 98.3 F Pulse Rate 68 64 Pulse Rate [Right Radial Palpation] 64 Respiratory Rate 17 Blood Pressure 139/70 156/68 H Pulse Oximetry 95 Oxygen Delivery 11/01/24 16:00 11/01/24 16:00 11/01/24 20:00 Temperature Pulse Rate 67 63 Pulse Rate [Right Radial Palpation] 64 Respiratory Rate Blood Pressure 139/70 Pulse Oximetry Oxygen Delivery 11/01/24 21:02 11/01/24 21:06 11/01/24 21:09 Temperature 98.2 F Pulse Rate 56 L 56 L Pulse Rate [Right Radial Palpation] Respiratory Rate 17 Blood Pressure 159/84 H Pulse Oximetry 94 Oxygen Delivery Room Air 11/02/24 00:00 11/02/24 04:00 11/02/24 04:37 Temperature 98.0 F Pulse Rate 64 64 59 L Pulse Rate [Right Radial Palpation] Respiratory Rate 17 Blood Pressure 155/71 H Pulse Oximetry 99 Oxygen Delivery 11/02/24 08:57 Temperature Pulse Rate 61 Pulse Rate [Right Radial Palpation] Respiratory Rate Blood Pressure Pulse Oximetry Oxygen Delivery Intake/Output Intake/Output: Intake & Output 10/30/24 10/31/24 11/01/24 11/02/24 23:59 23:59 23:59 23:59 Intake Total 3093 4291.0 3913 1550 Output Total 4300 5300 1800 Balance 3093 -9.0 -1387 -250 Meds/Results Medications: Active Medications Generic Name Dose Route Start Last Admin Trade Name Freq PRN Reason Stop Dose Admin Acetaminophen 500 mg 10/25/24 19:58 Acetaminophen 500 Mg Tablet PO Q4H PRN Mild Pain (1-3) or Fever Al Hydrox/Mg Hydrox/Simethicone 30 ml 10/19/24 17:51 10/21/24 14:06 Mag Hydrox/Al Hydrox/Simeth 30 Ml Udc PO 30 ml Q6H PRN Administration Indigestion Amlodipine Besylate 10 mg 10/20/24 12:10 11/02/24 08:57 Amlodipine Besylate 10 Mg Tablet PO 10 mg DAILY NIXON Administration Aripiprazole 5 mg 10/29/24 09:00 11/02/24 08:57 Aripiprazole 5 Mg Tablet PO 5 mg DAILY NIXON Administration Aspirin 81 mg 10/19/24 09:00 11/02/24 08:57 Aspirin 81 Mg Enteric Tablet PO 81 mg QAM [facility] Administration Carvedilol 12.5 mg 10/20/24 21:00 11/02/24 08:57 Carvedilol 12.5 Mg Tablet PO 12.5 mg Q12HR [facility] Administration Clonidine HCl 0.1 mg 10/20/24 09:00 11/02/24 08:57 Clonidine Hcl 0.1 Mg Tablet PO 0.1 mg Q12HR [facility] Administration Dicyclomine HCl 20 mg 10/20/24 08:44 10/31/24 02:06 Dicyclomine Hcl 10 Mg Capsule PO 20 mg QID PRN Administration Abdominal Cramping Folic Acid 1 mg 10/19/24 09:00 11/02/24 08:58 Folic Acid 1 Mg/0.2 Ml Inj IV PUSH 1 mg QAM [facility]IXON Administration Heparin Sodium (Porcine) 5,000 units 10/25/24 14:00 11/02/24 05:05 Heparin Sodium 5,000 Units/Ml Vial SUB-Q 5,000 units Q8HR [facility] Administration Hydralazine HCl 20 mg 10/19/24 08:20 Hydralazine Hcl 20 Mg/Ml Vial IV PUSH Q4H PRN SBP more than 180 Thiamine HCl 300 mg/ Sodium 103 mls @ 206 mls/hr 10/19/24 09:00 11/02/24 08:58 Chloride IVPB 206 mls/hr DAILY [facility] Administration Labetalol HCl 10 mg 10/19/24 14:15 10/31/24 17:04 Labetalol Hcl Inj 100 Mg/20 Ml Vial IV PUSH 10 mg Q4H PRN Administration SBP > 180 -1st choce Lactulose 20 gm 10/21/24 09:40 11/02/24 08:58 Lactulose 20 Gm/30 Ml Udc PO 20 gm QAM [facility]IXON Administration Lisinopril 40 mg 10/19/24 09:00 10/21/24 09:54 Lisinopril 20 Mg Tablet PO 40 mg QAM [facility] Administration Lorazepam 2 mg 10/23/24 21:43 10/30/24 20:08 Lorazepam Inj (*Crx) 2 Mg/Ml Vial IV PUSH 2 mg Q4H PRN Administration CIWA 8-15 Lorazepam 1 mg 10/29/24 09:39 10/31/24 20:16 Lorazepam Inj (*Crx) 2 Mg/Ml Vial IV PUSH 1 mg Q4H PRN Administration CIWA > 15 Magnesium Oxide 400 mg 10/31/24 09:00 11/02/24 08:57 Magnesium Oxide 400 Mg Tablet PO 400 mg DAILY NIXON Administration Miscellaneous Information 1 each 10/29/24 00:01 Percocet Needs To Be Renewed Or It Will Automatically Discontinue. XX 11/28/24 00:00 CLARIFY [facility] Miscellaneous Information 0 each 11/01/24 00:01 Lorazepam Renew Order If Still Needs Or Will Auto D/C XX 12/01/24 00:00 CLARIFY [facility] Nicotine Polacrilex 2 mg 10/22/24 22:58 10/22/24 23:13 Nicotine (*Pbkc) 2 Mg Gum PO 2 mg PRN PRN Administration Nicotine Cravings Ondansetron HCl 4 mg 10/18/24 21:09 10/21/24 14:06 Ondansetron Inj 4 Mg/2 Ml Vial IV PUSH 4 mg Q4H PRN Administration Nausea Oxycodone/Acetaminophen 1 tablet 10/20/24 09:09 11/02/24 06:47 Oxycodone/Acetaminophen (*Crx) 5-325 Mg Tablet PO 1 tablet Q4H PRN Administration Pain Rated 7-10 Polyethylene Glycol 17 gm 10/21/24 04:00 11/02/24 05:05 Polyethylene Glycol 3350 17 Gm Powd.Pack PO 17 gm Q8HR [facility] Administration Senna/Docusate Sodium 1 tab 10/20/24 21:00 11/01/24 21:30 Senna/Docusate Sodium Tablet PO Not Given HS [facility] Radiology Results: ITS Impressions Forearm X-Ray 10/18/24 16:37 IMPRESSION: No acute fracture or dislocation Chest X-Ray 10/18/24 21:11 IMPRESSION: 1. No acute cardiopulmonary disease. Head CT 10/19/24 05:45 Impression: No significant abnormality seen. Abdomen/Pelvis CT 10/21/24 05:24 Impression: Probable gallbladder sludge and diffuse gallbladder wall thickening/edematous change. Correlate for acute cholecystitis. Consider ultrasound and/or HIDA scan for further evaluation. Air in urinary bladder, which may be iatrogenic. Correlate clinically. 2 mm nonobstructing left renal stone. Upper Quadrant Ultrasound 10/21/24 08:18 IMPRESSION: 1. Distended gallbladder with sludge. Severe gallbladder wall thickening may be seen with chronic liver disease or chronic cholecystitis. No sonographic Fernando's sign to suggest acute cholecystitis. If there is clinical concern for acute cholecystitis, consider hepatobiliary scintigraphy. Head/Neck CTA 10/22/24 06:50 Impression: No significant abnormality. Abdomen X-Ray 10/28/24 19:13 IMPRESSION: Nonspecific, nonobstructive bowel gas pattern, as detailed above. Renal Ultrasound 10/31/24 14:12 IMPRESSION: No definite abnormality seen in both kidneys. Labs Labs: Laboratory Results - last 24 hr 11/01/24 11/01/24 11/02/24 12:18 18:23 04:39 WBC 7.9 RBC 3.21 L Hgb 9.8 L Hct 29.8 L MCV 92.8 MCH 30.5 MCHC 32.9 RDW 13.3 Plt Count 303 MPV 10.7 H Sodium 140 Potassium 3.1 L Chloride 103 Carbon Dioxide 32 H Anion Gap 5 BUN 11 Creatinine 1.11 H Estim Creat Clear Calc 50 Estimated GFR 52 L Glucose 129 H POC Capillary Glucose 160 H 91 Calcium 7.5 L Total Bilirubin 0.1 L AST 34 ALT 42 H Alkaline Phosphatase 119 Total Protein 6.0 L Albumin 2.8 L Quality VTE Prophylaxis VTE prophylaxis: pharmacologic ordered Hospitalist MIPS Advance Care Plan I have confirmed that the patient's Advanced Care Plan is present, code status is documented, or surrogate decision maker is listed in patient medical record.: Yes Medication Reconciliation I have utilized all available resources to obtain, update and review the patients current medications (includes all prescriptions, OTC, herbals, cannabis, and nutritional supplements).: Yes
--- NOTE | 2024-11-02 10:36 | PCNFU ---
Nutrition Follow-Up Complete: Severe Protein Calorie Malnutrition as related to inadequate protein energy intake in the setting of acute disease as evidenced by < 75% of EER for > 7 days; moderate muscle wasting (temporalis) and moderate subcutaneous fat loss (orbital fat pads). Goal: Meet estimated nutritional needs. Patient continues current goal. Pt current nutrition is Regular with Nutritional Ice Cream TID. Last recorded weight is 67.2 kg, up from 58.2 kg on admit. Bowel Motility: +BM reported 10/31 Labs Reviewed: Mg 1.5, Cr 1.11, Glu 129, K 3.1, Hct 29.8, Hgb 9.8, K 3.1 Meds Noted: Thiamine, Folic Acid, Miralax, Lactulose. Skin: WNL Additional Notes: Patient remains on a regular diet, toleraing > 50% of meals. Diet supplements of Nutritional Ice Cream providing an additional 300 kcal and 9 gm protein. Agree with diet orders. Will monitor weight, labs, skin, diet orders, meds every 7 days.
[2024-11-02] MEDS: SODIUM CHLORIDE 0.9% IV 1,000 ML 75 ML IV CONT (14:01)
[2024-11-03 05:04] LABS: Hematocrit 30.1 % (37.0-47.0); Hemoglobin 9.8 g/dL (12.0-15.0); Mean Corpuscular HGB Conc 32.6 g/dl (32-36); Mean Corpuscular Hemoglobin 30.4 pg (26-34); Mean Corpuscular Volume 93.5 fl (80-100); Mean Platelet Volume 10.8 fl (7.4-10.4); Platelet Count Result 287 k/mm3 (150-375); Red Blood Count 3.22 M/mm3 (4.2-5.4); Red Cell Distribution Width 13.2 % (11.5-14.5); White Blood Count 6.6 K/mm3 (4.5-10.0)
[2024-11-03 05:10] LABS: Alanine Aminotransferase 39 U/L (6-35); Alkaline Phosphatase 147 U/L (38-126); Anion Gap 3 mmol/L (4-12); Aspartate Amino Transferase 40 U/L (14-36); Bilirubin,Total 0.2 mg/dL (0.2-1.3); Blood Urea Nitrogen 13 mg/dL (7-17); Calcium 7.8 mg/dL (8.4-10.2); Carbon Dioxide 34 mmol/L (22-30); Chloride 103 mmol/L (98-107); Estimated CRCL calculation 44 ml/min; Estimated Glomerular Filt Rate 45; Glucose 98 mg/dL (65-110); Potassium 3.6 mmol/L (3.4-5.0); Sodium 140 mmol/L (137-145)
[2024-11-03 05:31] VITALS: BP 154/79; PULSE 62; RESP 18; TEMP 36.6; O2SAT 100
[2024-11-03] MEDS: HEPARIN SODIUM 5,000 UNITS/ML VIAL 5000 UNITS SUB-Q ×3 (06:24→20:06)
[2024-11-03 08:33] VITALS: PULSE 62
[2024-11-03] MEDS: MAGNESIUM OXIDE 400 MG TABLET PO (08:33)
[2024-11-03] MEDS: amLODIPine BESYLATE 10 MG TABLET PO (08:33)
[2024-11-03] MEDS: carvediloL 12.5 MG TABLET PO ×2 (08:33→20:05)
[2024-11-03] MEDS: cloNIDine HCL 0.1 MG TABLET PO ×2 (08:33→20:06)
[2024-11-03] MEDS: ASPIRIN 81 MG ENTERIC TABLET PO (08:33)
[2024-11-03] MEDS: ARIPiprazole 5 MG TABLET PO (08:33)
[2024-11-03] MEDS: FOLIC ACID 1 MG/0.2 ML INJ IV PUSH (08:34)
[2024-11-03] MEDS: THIAMINE HCL INJ 300 MG in SODIUM CHLORIDE 0.9% IV 100 ML 206 MG IVPB (08:34)
[2024-11-03] MEDS: LACTULOSE 20 GM/30 ML UDC PO (08:34)
[2024-11-03] MEDS: SODIUM CHLORIDE 0.9% IV 1,000 ML 120 ML IV CONT ×2 (11:22→20:16)
[2024-11-03 14:00] VITALS: BP 172/73; PULSE 58; RESP 12; TEMP 36.6; O2SAT 97
[2024-11-03] MEDS: oxyCODONE/ACETAMINOPHEN (*CRX) 5-325 MG TABLET 1 TABLET PO (14:27)
--- NOTE | 2024-11-03 16:00 | PM.IMPN ---
Progress Note: A&P Assessment and Plan (1) Substance abuse: Code(s): F19.10 - Other psychoactive substance abuse, uncomplicated Status: Acute Assessment and Plan: Will continue to follow CIWA scale and manage accordingly. (2) Uncontrolled hypertension: Code(s): I10 - Essential (primary) hypertension Status: Acute Assessment and Plan: Blood pressure is getting better. Continue current treatment monitor closely. (3) NSTEMI (non-ST elevated myocardial infarction): Code(s): I21.4 - Non-ST elevation (NSTEMI) myocardial infarction Status: Acute Assessment and Plan: Stable, continue current treatment. (4) Acute hypokalemia: Code(s): E87.6 - Hypokalemia Status: Acute Assessment and Plan: Replace and monitor. (5) Alcohol abuse: Code(s): F10.10 - Alcohol abuse, uncomplicated Status: Acute Assessment and Plan: Counseling given, continue current treatment (6) Cholecystitis: Code(s): K81.9 - Cholecystitis, unspecified Status: Acute Assessment and Plan: Stable, continue current treatment. Plan Substance abuse Pt drinking alcohol and UDS positive for Amphetamine CIWA pt scoring high s/p Librium and Hydroxyxine Thiamine and folic acid Lorazepam 1 mg q.4 hours p.r.n. for seizure, taper off monitor Agitation, improving ?Underlying psych disorder vs withdrawals Patient being sober and off drugs Continue PRN Ativan, stopped Librium Continue Aripiprazole at 5mg daily, decreased from 10mg due to somnolence monitor and adjust Troponin elevation As per Cardiology -most likely as a result of her uncontrolled hypertension as well as the positive urine drug screen for methamphetamine -echocardiogram review normal biventricular systolic function with severe left ventricular hypertrophy HTN s/p Nitro drip Continue Clonidine 0.1mg PO BID, Coreg 12.5 mg PO BID,Amlodipine 10mg PO QD. Lisinopril 40mg PO in hold due to OMAIRA monitor and adjust with clinic Cholecystitis US Abd:1. Distended gallbladder with sludge. Severe gallbladder wall thickening may be seen with chronic liver disease or chronic cholecystitis. No sonographic Fernando's sign to suggest acute cholecystitis. If there is clinical concern for acute cholecystitis, consider hepatobiliary scintigraphy. CT Abd/Pelvis:Probable gallbladder sludge and diffuse gallbladder wall thickening/edematous change. Correlate for acute cholecystitis. Consider ultrasound and/or HIDA scan for further evaluation.Air in urinary bladder, which may be iatrogenic. Correlate clinically.2 mm nonobstructing left renal stone. S/p Cefepime and Flagyl, now on PO Cefdinir and Flagyl Plan is to complete 14 days of total antibiotics Liver enzymes resolved Surgery recommended no intervention Elevated liver enzymes, resolved Likely from alcohol and drug abuse resolving OMAIRA Cr 1.11, baseline normal Discontinue IVF and monitor Lisinopril on hol d encourage oral intake DVT prophylaxis on Sq Lovenox Awaiting resolution of OMAIRA for discharge Subjective Date/time seen: 11/03/24 16:00 Interval history: Advised to patient increase her fluid intake. Her creatinine is rising. Increased her fluid rate from 75-120. Patient needs a rehab due to alcoholism and drug abuse. Patient needs close monitoring. Review of Systems Review of Systems: Pt is somnolent having high ciwa scores All systems reviewed & are unremarkable except as noted in HPI and below ROS unobtainable: Yes unobtainable due to medical condition and unobtainable due to mental status Exam Narrative: General: Drowsy Lungs/Chest: Trachea central Clear BS B/L, No crackles or wheezing. Cardiac: RRR. Normal S1 S2. No murmurs Circulation: Pedal pulses are intact and symmetrical. Abdomen: Normal bowel sounds.. Soft. NT. ND. Extremities: No clubbing, cyanosis or edema. Warm : Daniel in place Neurologic: Drowsy Objective Data Vital Signs Vital Signs: Vital Signs - 24 hr 11/02/24 19:44 11/02/24 20:12 11/02/24 20:23 Temperature 98.5 F Pulse Rate 61 61 Respiratory Rate 16 Blood Pressure 129/68 Pulse Oximetry 100 Oxygen Delivery Room Air 11/03/24 05:31 11/03/24 08:00 11/03/24 08:33 Temperature 97.8 F Pulse Rate 62 62 Respiratory Rate 18 Blood Pressure 154/79 H Pulse Oximetry 100 Oxygen Delivery Room Air 11/03/24 14:00 Temperature 97.9 F Pulse Rate 58 L Respiratory Rate 12 Blood Pressure 172/73 H Pulse Oximetry 97 Oxygen Delivery Intake/Output Intake/Output: Intake & Output 10/31/24 11/01/24 11/02/24 11/03/24 23:59 23:59 23:59 23:59 Intake Total 4291.0 3913 2443 1670 Output Total 4033 9354 5779 2100 Balance -9.0 -1387 -3332 -430 Meds/Results Medications: Active Medications Generic Name Dose Route Start Last Admin Trade Name Freq PRN Reason Stop Dose Admin Acetaminophen 500 mg 10/25/24 19:58 Acetaminophen 500 Mg Tablet PO Q4H PRN Mild Pain (1-3) or Fever Al Hydrox/Mg Hydrox/Simethicone 30 ml 10/19/24 17:51 10/21/24 14:06 Mag Hydrox/Al Hydrox/Simeth 30 Ml Udc PO 30 ml Q6H PRN Administration Indigestion Amlodipine Besylate 10 mg 10/20/24 12:10 11/03/24 08:33 Amlodipine Besylate 10 Mg Tablet PO 10 mg DAILY NIXON Administration Aripiprazole 5 mg 10/29/24 09:00 11/03/24 08:33 Aripiprazole 5 Mg Tablet PO 5 mg DAILY NIXON Administration Aspirin 81 mg 10/19/24 09:00 11/03/24 08:33 Aspirin 81 Mg Enteric Tablet PO 81 mg QAM NIXON Administration Carvedilol 12.5 mg 10/20/24 21:00 11/03/24 08:33 Carvedilol 12.5 Mg Tablet PO 12.5 mg Q12HR NIXON Administration Clonidine HCl 0.1 mg 10/20/24 09:00 11/03/24 08:33 Clonidine Hcl 0.1 Mg Tablet PO 0.1 mg Q12HR NIXON Administration Dicyclomine HCl 20 mg 10/20/24 08:44 10/31/24 02:06 Dicyclomine Hcl 10 Mg Capsule PO 20 mg QID PRN Administration Abdominal Cramping Folic Acid 1 mg 10/19/24 09:00 11/03/24 08:34 Folic Acid 1 Mg/0.2 Ml Inj IV PUSH 1 mg QAM NIXON Administration Heparin Sodium (Porcine) 5,000 units 10/25/24 14:00 11/03/24 14:27 Heparin Sodium 5,000 Units/Ml Vial SUB-Q 5,000 units Q8HR NIXON Administration Hydralazine HCl 20 mg 10/19/24 08:20 Hydralazine Hcl 20 Mg/Ml Vial IV PUSH Q4H PRN SBP more than 180 Thiamine HCl 300 mg/ Sodium 103 mls @ 206 mls/hr 10/19/24 09:00 11/03/24 08:34 Chloride IVPB 206 mls/hr DAILY NIXON Administration Sodium Chloride 1,000 mls @ 120 mls/hr 11/02/24 13:20 11/03/24 11:22 Normal Saline Iv IV CONT 120 mls/hr .Q8H20M NIXON Administration Labetalol HCl 10 mg 10/19/24 14:15 10/31/24 17:04 Labetalol Hcl Inj 100 Mg/20 Ml Vial IV PUSH 10 mg Q4H PRN Administration SBP > 180 -1st choce Lisinopril 40 mg 10/19/24 09:00 10/21/24 09:54 Lisinopril 20 Mg Tablet PO 40 mg QAM NIXON Administration Lorazepam 1 mg 10/29/24 09:39 10/31/24 20:16 Lorazepam Inj (*Crx) 2 Mg/Ml Vial IV PUSH 1 mg Q4H PRN Administration CIWA > 15 Magnesium Oxide 400 mg 10/31/24 09:00 11/03/24 08:33 Magnesium Oxide 400 Mg Tablet PO 400 mg DAILY NIXON Administration Miscellaneous Information 1 each 10/29/24 00:01 Percocet Needs To Be Renewed Or It Will Automatically Discontinue. XX 11/28/24 00:00 CLARIFY NIXON Miscellaneous Information 0 each 11/01/24 00:01 Lorazepam Renew Order If Still Needs Or Will Auto D/C XX 12/01/24 00:00 CLARIFY [facility] Nicotine Polacrilex 2 mg 10/22/24 22:58 10/22/24 23:13 Nicotine (*Pbkc) 2 Mg Gum PO 2 mg PRN PRN Administration Nicotine Cravings Ondansetron HCl 4 mg 10/18/24 21:09 10/21/24 14:06 Ondansetron Inj 4 Mg/2 Ml Vial IV PUSH 4 mg Q4H PRN Administration Nausea Oxycodone/Acetaminophen 1 tablet 10/20/24 09:09 11/03/24 14:27 Oxycodone/Acetaminophen (*Crx) 5-325 Mg Tablet PO 1 tablet Q4H PRN Administration Pain Rated 7-10 Potassium Chloride 20 meq 11/04/24 08:00 Potassium Chloride 20 Meq Er Tablet PO DAILY@0800 NIXON Senna/Docusate Sodium 1 tab 10/20/24 21:00 11/02/24 20:43 Senna/Docusate Sodium Tablet PO Not Given HS [facility] Radiology Results: ITS Impressions Forearm X-Ray 10/18/24 16:37 IMPRESSION: No acute fracture or dislocation Chest X-Ray 10/18/24 21:11 IMPRESSION: 1. No acute cardiopulmonary disease. Head CT 10/19/24 05:45 Impression: No significant abnormality seen. Abdomen/Pelvis CT 10/21/24 05:24 Impression: Probable gallbladder sludge and diffuse gallbladder wall thickening/edematous change. Correlate for acute cholecystitis. Consider ultrasound and/or HIDA scan for further evaluation. Air in urinary bladder, which may be iatrogenic. Correlate clinically. 2 mm nonobstructing left renal stone. Upper Quadrant Ultrasound 10/21/24 08:18 IMPRESSION: 1. Distended gallbladder with sludge. Severe gallbladder wall thickening may be seen with chronic liver disease or chronic cholecystitis. No sonographic Fernando's sign to suggest acute cholecystitis. If there is clinical concern for acute cholecystitis, consider hepatobiliary scintigraphy. Head/Neck CTA 10/22/24 06:50 Impression: No significant abnormality. Abdomen X-Ray 10/28/24 19:13 IMPRESSION: Nonspecific, nonobstructive bowel gas pattern, as detailed above. Renal Ultrasound 10/31/24 14:12 IMPRESSION: No definite abnormality seen in both kidneys. Labs Labs: Laboratory Results - last 24 hr 11/03/24 04:29 WBC 6.6 RBC 3.22 L Hgb 9.8 L Hct 30.1 L MCV 93.5 MCH 30.4 MCHC 32.6 RDW 13.2 Plt Count 287 MPV 10.8 H Sodium 140 Potassium 3.6 Chloride 103 Carbon Dioxide 34 H Anion Gap 3 L BUN 13 Creatinine 1.27 H Estim Creat Clear Calc 44 Estimated GFR 45 L Glucose 98 Calcium 7.8 L Total Bilirubin 0.2 AST 40 H ALT 39 H Alkaline Phosphatase 147 H Total Protein 7.0 Albumin 3.0 L Quality VTE Prophylaxis VTE prophylaxis: pharmacologic ordered Hospitalist [facility] Advance Care Plan I have confirmed that the patient's Advanced Care Plan is present, code status is documented, or surrogate decision maker is listed in patient medical record.: Yes Medication Reconciliation I have utilized all available resources to obtain, update and review the patients current medications (includes all prescriptions, OTC, herbals, cannabis, and nutritional supplements).: Yes
[2024-11-03 19:59] VITALS: BP 177/65; PULSE 57; RESP 18; TEMP 36.8; O2SAT 98
[2024-11-03 20:05] VITALS: PULSE 57
[2024-11-04 04:41] LABS: Hematocrit 28.2 % (37.0-47.0); Hemoglobin 9.3 g/dL (12.0-15.0); Mean Corpuscular Hemoglobin 30.7 pg (26-34); Mean Corpuscular Volume 93.1 fl (80-100); Mean Platelet Volume 11.1 fl (7.4-10.4); Platelet Count Result 309 k/mm3 (150-375); Red Blood Count 3.03 M/mm3 (4.2-5.4); Red Cell Distribution Width 13.3 % (11.5-14.5); White Blood Count 7.4 K/mm3 (4.5-10.0)
[2024-11-04 04:59] LABS: Alanine Aminotransferase 36 U/L (6-35); Albumin Level 3.1 g/dL (3.5-5.1); Alkaline Phosphatase 138 U/L (38-126); Anion Gap 7 mmol/L (4-12); Aspartate Amino Transferase 28 U/L (14-36); Bilirubin,Total 0.2 mg/dL (0.2-1.3); Blood Urea Nitrogen 15 mg/dL (7-17); Calcium 8.1 mg/dL (8.4-10.2); Carbon Dioxide 28 mmol/L (22-30); Chloride 104 mmol/L (98-107); Estimated CRCL calculation 57 ml/min; Estimated Glomerular Filt Rate > 60; Glucose 95 mg/dL (65-110); Potassium 3.4 mmol/L (3.4-5.0); Sodium 139 mmol/L (137-145)
[2024-11-04] MEDS: SODIUM CHLORIDE 0.9% IV 1,000 ML 120 ML IV CONT ×2 (05:11→14:48)
[2024-11-04] MEDS: HEPARIN SODIUM 5,000 UNITS/ML VIAL 5000 UNITS SUB-Q ×2 (05:12→13:17)
[2024-11-04 05:16] VITALS: BP 157/70; PULSE 61; RESP 18; TEMP 36.9; O2SAT 99
[2024-11-04 08:33] VITALS: BP 160/83; PULSE 67; O2SAT 98
[2024-11-04 08:34] VITALS: PULSE 67
[2024-11-04] MEDS: POTASSIUM CHLORIDE 20 MEQ ER TABLET PO (08:34)
[2024-11-04] MEDS: ARIPiprazole 5 MG TABLET PO (08:34)
[2024-11-04] MEDS: cloNIDine HCL 0.1 MG TABLET PO (08:34)
[2024-11-04] MEDS: carvediloL 12.5 MG TABLET PO (08:34)
[2024-11-04] MEDS: amLODIPine BESYLATE 10 MG TABLET PO (08:34)
[2024-11-04] MEDS: MAGNESIUM OXIDE 400 MG TABLET PO (08:34)
[2024-11-04] MEDS: ASPIRIN 81 MG ENTERIC TABLET PO (08:34)
[2024-11-04] MEDS: FOLIC ACID 1 MG/0.2 ML INJ IV PUSH (08:35)
[2024-11-04] MEDS: THIAMINE HCL INJ 300 MG in SODIUM CHLORIDE 0.9% IV 100 ML 206 MG IVPB (08:35)
[2024-11-04 08:40] VITALS: O2SAT 96
[2024-11-04 15:28] VITALS: BP 164/71; PULSE 64; RESP 16; TEMP 36.4; O2SAT 100
[2024-11-04] MEDS: NICOTINE (*PBKC) 2 MG GUM PO (15:42)
--- NOTE | 2024-11-04 16:14 | P.PNIM_ITS ---
Progress Note: A&P Assessment and Plan (1) Substance abuse: Code(s): F19.10 - Other psychoactive substance abuse, uncomplicated Status: Acute Assessment and Plan: Will continue to follow CIWA scale and manage accordingly. (2) Uncontrolled hypertension: Code(s): I10 - Essential (primary) hypertension Status: Acute Assessment and Plan: Blood pressure is getting better. Continue current treatment monitor closely. (3) NSTEMI (non-ST elevated myocardial infarction): Code(s): I21.4 - Non-ST elevation (NSTEMI) myocardial infarction Status: Acute Assessment and Plan: Stable, continue current treatment. (4) Acute hypokalemia: Code(s): E87.6 - Hypokalemia Status: Acute Assessment and Plan: Replace and monitor. (5) Alcohol abuse: Code(s): F10.10 - Alcohol abuse, uncomplicated Status: Acute Assessment and Plan: Counseling given, continue current treatment (6) Cholecystitis: Code(s): K81.9 - Cholecystitis, unspecified Status: Acute Assessment and Plan: Stable, continue current treatment. Plan Substance abuse Pt drinking alcohol and UDS positive for Amphetamine CIWA pt scoring high s/p Librium and Hydroxyxine Thiamine and folic acid Lorazepam 1 mg q.4 hours p.r.n. for seizure, taper off monitor Agitation, improving ?Underlying psych disorder vs withdrawals Patient being sober and off drugs Continue PRN Ativan, stopped Librium Continue Aripiprazole at 5mg daily, decreased from 10mg due to somnolence monitor and adjust Troponin elevation As per Cardiology -most likely as a result of her uncontrolled hypertension as well as the positive urine drug screen for methamphetamine -echocardiogram review normal biventricular systolic function with severe left ventricular hypertrophy HTN s/p Nitro drip Continue Clonidine 0.1mg PO BID, Coreg 12.5 mg PO BID,Amlodipine 10mg PO QD. Lisinopril 40mg PO in hold due to OMAIRA monitor and adjust with clinic Cholecystitis US Abd:1. Distended gallbladder with sludge. Severe gallbladder wall thickening may be seen with chronic liver disease or chronic cholecystitis. No sonographic Fernando's sign to suggest acute cholecystitis. If there is clinical concern for acute cholecystitis, consider hepatobiliary scintigraphy. CT Abd/Pelvis:Probable gallbladder sludge and diffuse gallbladder wall thickening/edematous change. Correlate for acute cholecystitis. Consider ultrasound and/or HIDA scan for further evaluation.Air in urinary bladder, which may be iatrogenic. Correlate clinically.2 mm nonobstructing left renal stone. S/p Cefepime and Flagyl, now on PO Cefdinir and Flagyl Plan is to complete 14 days of total antibiotics Liver enzymes resolved Surgery recommended no intervention Elevated liver enzymes, resolved Likely from alcohol and drug abuse resolving OMAIRA Cr 1.11, baseline normal Discontinue IVF and monitor Lisinopril on hol d encourage oral intake DVT prophylaxis on Sq Lovenox Awaiting resolution of OMAIRA for discharge Subjective Date/time seen: 11/04/24 16:14 Interval history: Patient creatinine is better but still on IV fluids. A emphasized on empiric oral intake. Patient needs rehab. Patient is requesting smoking. Review of Systems Review of Systems: Pt is somnolent having high ciwa scores All systems reviewed & are unremarkable except as noted in HPI and below ROS unobtainable: Yes unobtainable due to medical condition and unobtainable due to mental status Exam Narrative: General: Drowsy Lungs/Chest: Trachea central Clear BS B/L, No crackles or wheezing. Cardiac: RRR. Normal S1 S2. No murmurs Circulation: Pedal pulses are intact and symmetrical. Abdomen: Normal bowel sounds.. Soft. NT. ND. Extremities: No clubbing, cyanosis or edema. Warm : Daniel in place Neurologic: Drowsy Objective Data Vital Signs Vital Signs: Vital Signs - 24 hr 11/03/24 19:59 11/03/24 20:00 11/03/24 20:05 Temperature 98.2 F Pulse Rate 57 L 57 L Respiratory Rate 18 Blood Pressure 177/65 H Pulse Oximetry 98 Oxygen Delivery Room Air 11/04/24 05:16 11/04/24 08:33 11/04/24 08:34 Temperature 98.4 F Pulse Rate 61 67 67 Respiratory Rate 18 Blood Pressure 157/70 H 160/83 H Pulse Oximetry 99 98 Oxygen Delivery 11/04/24 08:40 11/04/24 14:48 11/04/24 15:28 Temperature 97.5 F L Pulse Rate 64 Respiratory Rate 16 Blood Pressure 164/71 H Pulse Oximetry 96 100 Oxygen Delivery Room Air Room Air Intake/Output Intake/Output: Intake & Output 11/01/24 11/02/24 11/03/24 11/04/24 23:59 23:59 23:59 23:59 Intake Total 0040 3112 4484 5506 Output Total 3797 0004 0702 5507 [facility] [phone] Meds/Results Medications: Active Medications Generic Name Dose Route Start Last Admin Trade Name Freq PRN Reason Stop Dose Admin Acetaminophen 500 mg 10/25/24 19:58 Acetaminophen 500 Mg Tablet PO Q4H PRN Mild Pain (1-3) or Fever Al Hydrox/Mg Hydrox/Simethicone 30 ml 10/19/24 17:51 10/21/24 14:06 Mag Hydrox/Al Hydrox/Simeth 30 Ml Udc PO 30 ml Q6H PRN Administration Indigestion Amlodipine Besylate 10 mg 10/20/24 12:10 11/04/24 08:34 Amlodipine Besylate 10 Mg Tablet PO 10 mg DAILY NIXON Administration Aripiprazole 5 mg 10/29/24 09:00 11/04/24 08:34 Aripiprazole 5 Mg Tablet PO 5 mg DAILY NIXON Administration Aspirin 81 mg 10/19/24 09:00 11/04/24 08:34 Aspirin 81 Mg Enteric Tablet PO 81 mg QAM NIXON Administration Carvedilol 12.5 mg 10/20/24 21:00 11/04/24 08:34 Carvedilol 12.5 Mg Tablet PO 12.5 mg Q12HR NIXON Administration Clonidine HCl 0.1 mg 10/20/24 09:00 11/04/24 08:34 Clonidine Hcl 0.1 Mg Tablet PO 0.1 mg Q12HR NIXON Administration Dicyclomine HCl 20 mg 10/20/24 08:44 10/31/24 02:06 Dicyclomine Hcl 10 Mg Capsule PO 20 mg QID PRN Administration Abdominal Cramping Folic Acid 1 mg 10/19/24 09:00 11/04/24 08:35 Folic Acid 1 Mg/0.2 Ml Inj IV PUSH 1 mg QAM NIXON Administration Heparin Sodium (Porcine) 5,000 units 10/25/24 14:00 11/04/24 13:17 Heparin Sodium 5,000 Units/Ml Vial SUB-Q 5,000 units Q8HR NIXON Administration Hydralazine HCl 20 mg 10/19/24 08:20 Hydralazine Hcl 20 Mg/Ml Vial IV PUSH Q4H PRN SBP more than 180 Thiamine HCl 300 mg/ Sodium 103 mls @ 206 mls/hr 10/19/24 09:00 11/04/24 08:35 Chloride IVPB 206 mls/hr DAILY NIXON Administration Sodium Chloride 1,000 mls @ 120 mls/hr 11/02/24 13:20 11/04/24 14:48 Normal Saline Iv IV CONT 120 mls/hr .Q8H20M NIXON Administration Labetalol HCl 10 mg 10/19/24 14:15 10/31/24 17:04 Labetalol Hcl Inj 100 Mg/20 Ml Vial IV PUSH 10 mg Q4H PRN Administration SBP > 180 -1st choce Lisinopril 40 mg 10/19/24 09:00 10/21/24 09:54 Lisinopril 20 Mg Tablet PO 40 mg QAM NIXON Administration Lorazepam 1 mg 10/29/24 09:39 10/31/24 20:16 Lorazepam Inj (*Crx) 2 Mg/Ml Vial IV PUSH 1 mg Q4H PRN Administration CIWA > 15 Magnesium Oxide 400 mg 10/31/24 09:00 11/04/24 08:34 Magnesium Oxide 400 Mg Tablet PO 400 mg DAILY NIXON Administration Miscellaneous Information 1 each 10/29/24 00:01 Percocet Needs To Be Renewed Or It Will Automatically Discontinue. XX 11/28/24 00:00 CLARIFY [facility] Miscellaneous Information 0 each 11/01/24 00:01 Lorazepam Renew Order If Still Needs Or Will Auto D/C XX 12/01/24 00:00 CLARIFY [facility] Nicotine Polacrilex 2 mg 10/22/24 22:58 11/04/24 15:42 Nicotine (*Pbkc) 2 Mg Gum PO 2 mg PRN PRN Administration Nicotine Cravings Ondansetron HCl 4 mg 10/18/24 21:09 10/21/24 14:06 Ondansetron Inj 4 Mg/2 Ml Vial IV PUSH 4 mg Q4H PRN Administration Nausea Oxycodone/Acetaminophen 1 tablet 10/20/24 09:09 11/03/24 14:27 Oxycodone/Acetaminophen (*Crx) 5-325 Mg Tablet PO 1 tablet Q4H PRN Administration Pain Rated 7-10 Potassium Chloride 20 meq 11/04/24 08:00 11/04/24 08:34 Potassium Chloride 20 Meq Er Tablet PO 20 meq DAILY@0800 NIXON Administration Senna/Docusate Sodium 1 tab 10/20/24 21:00 11/03/24 20:16 Senna/Docusate Sodium Tablet PO Not Given HS [facility] Radiology Results: ITS Impressions Forearm X-Ray 10/18/24 16:37 IMPRESSION: No acute fracture or dislocation Chest X-Ray 10/18/24 21:11 IMPRESSION: 1. No acute cardiopulmonary disease. Head CT 10/19/24 05:45 Impression: No significant abnormality seen. Abdomen/Pelvis CT 10/21/24 05:24 Impression: Probable gallbladder sludge and diffuse gallbladder wall thickening/edematous change. Correlate for acute cholecystitis. Consider ultrasound and/or HIDA scan for further evaluation. Air in urinary bladder, which may be iatrogenic. Correlate clinically. 2 mm nonobstructing left renal stone. Upper Quadrant Ultrasound 10/21/24 08:18 IMPRESSION: 1. Distended gallbladder with sludge. Severe gallbladder wall thickening may be seen with chronic liver disease or chronic cholecystitis. No sonographic Fernando's sign to suggest acute cholecystitis. If there is clinical concern for acute cholecystitis, consider hepatobiliary scintigraphy. Head/Neck CTA 10/22/24 06:50 Impression: No significant abnormality. Abdomen X-Ray 10/28/24 19:13 IMPRESSION: Nonspecific, nonobstructive bowel gas pattern, as detailed above. Renal Ultrasound 10/31/24 14:12 IMPRESSION: No definite abnormality seen in both kidneys. Labs Labs: Laboratory Results - last 24 hr 11/04/24 04:15 WBC 7.4 RBC 3.03 L Hgb 9.3 L Hct 28.2 L MCV 93.1 MCH 30.7 MCHC 33.0 RDW 13.3 Plt Count 309 MPV 11.1 H Sodium 139 Potassium 3.4 Chloride 104 Carbon Dioxide 28 Anion Gap 7 BUN 15 Creatinine 0.95 Estim Creat Clear Calc 57 Estimated GFR > 60 Glucose 95 Calcium 8.1 L Total Bilirubin 0.2 AST 28 ALT 36 H Alkaline Phosphatase 138 H Total Protein 6.0 L Albumin 3.1 L Quality VTE Prophylaxis VTE prophylaxis: pharmacologic ordered Hospitalist [facility] Advance Care Plan I have confirmed that the patient's Advanced Care Plan is present, code status is documented, or surrogate decision maker is listed in patient medical record.: Yes Medication Reconciliation I have utilized all available resources to obtain, update and review the patients current medications (includes all prescriptions, OTC, herbals, can nabis, and nutritional supplements).: Yes
[2024-11-04] MEDS: LORazepam (*CRX) 0.5 MG TABLET PO (17:40)
--- NOTE | 2024-11-07 16:04 | P.DS_ITS ---
DS: Admitting Diagnosis Discharge Date 11/04/24 Admitting Diagnosis Hypertensive emergency DS: Discharge Diagnosis Discharge Diagnosis (1) Substance abuse: Code(s): F19.10 - Other psychoactive substance abuse, uncomplicated Status: Acute Assessment and Plan: Will continue to follow CIWA scale and manage accordingly. (2) Uncontrolled hypertension: Code(s): I10 - Essential (primary) hypertension Status: Acute Assessment and Plan: Blood pressure is getting better. Continue current treatment monitor closely. (3) NSTEMI (non-ST elevated myocardial infarction): Code(s): I21.4 - Non-ST elevation (NSTEMI) myocardial infarction Status: Acute Assessment and Plan: Stable, continue current treatment. (4) Acute hypokalemia: Code(s): E87.6 - Hypokalemia Status: Acute Assessment and Plan: Replace and monitor. (5) Alcohol abuse: Code(s): F10.10 - Alcohol abuse, uncomplicated Status: Acute Assessment and Plan: Counseling given, continue current treatment (6) Cholecystitis: Code(s): K81.9 - Cholecystitis, unspecified Status: Acute Assessment and Plan: Stable, continue current treatment. DS: Summary Hospital Course Hospital Course: 48-year-old female with history of depression, generalized anxiety disorder, h ypertension, COPD, nicotine dependence, alcohol abuse, substance abuse who presented to the hospital with complaints of nausea, vomiting, and weakness. Patient states that she stopped drinking 11 days ago and then started having some nausea, vomiting and weakness. She presented for further evaluation. Her blood pressures were noted to be running high 193/122 to 212/133. She states she has not taken any blood pressure medicine in years. Workup in the hospital included a chest x-ray which was negative for any acute cardiopulmonary disease. Forearm x-ray which was negative for any acute fracture or dislocation. Head CT which was negative for any significant abnormality.. Initial labs showed a white blood cell count of 13.4, hemoglobin 15.8, INR 1.0, sodium 132, potassium 2.9, chloride 90, creatinine 1.04, EGFR 57, blood sugar 124, magnesium 1.8, troponin 0.080> 0.090> 0.087, proBNP 68501, lipase was normal at 61. Respiratory panel was negative for influenza a and B, RSV, COVID. Urine drug screen was positive for methamphetamines. UA showed turbid urine appearance, 2+ urine protein, 3+ urine blood, 1+ leukocytes, 6-10 urine RBC, 21-50 urine WBC, moderate urine epithelial cells, 4+ urine bacteria. EKG showed normal sinus rhythm with left ventricular hypertrophy and left atrial enlargement with a rate of 85, QTC 446. Patient was given 2 L normal saline, 60 mEq of potassium, Zofran, Ativan, 324 mg aspirin, 1 g of magnesium, 10 mg IV push hydralazine, 20 mg IV push labetalol, and a nicardipine drip at 5 milligram/hour as her blood pressures did not stabilize with the hydralazine or the labetalol. Heparin infusion is on hold per clinical operations consultant recommendation. She is being admitted to ICU for hypertensive emergency and alcohol withdrawal. Patient had a prolonged hospitalization. Initially she was treated for hypertensive emergency in ICU, then possible acute cholecystitis without surgical management and later for OMAIRA. Patient left AMA Substance abuse Pt drinking alcohol and UDS positive for Amphetamine CIWA pt scoring high s/p Librium and Hydroxyxine Thiamine and folic acid Lorazepam 1 mg q.4 hours p.r.n. for seizure, taper off monitor Agitation, improving ?Underlying psych disorder vs withdrawals Patient being sober and off drugs Continue PRN Ativan, stopped Librium Continue Aripiprazole at 5mg daily, decreased from 10mg due to somnolence monitor and adjust Troponin elevation As per Cardiology -most likely as a result of her uncontrolled hypertension as well as the positive urine drug screen for methamphetamine -echocardiogram review normal biventricular systolic function with severe left ventricular hypertrophy HTN s/p Nitro drip Continue Clonidine 0.1mg PO BID, Coreg 12.5 mg PO BID,Amlodipine 10mg PO QD. Lisinopril 40mg PO in hold due to OMAIRA monitor and adjust with clinic Cholecystitis US Abd:1. Distended gallbladder with sludge. Severe gallbladder wall thickening may be seen with chronic liver disease or chronic cholecystitis. No sonographic Fernando's sign to suggest acute cholecystitis. If there is clinical concern for acute cholecystitis, consider hepatobiliary scintigraphy. CT Abd/Pelvis:Probable gallbladder sludge and diffuse gallbladder wall thickening/edematous change. Correlate for acute cholecystitis. Consider ultrasound and/or HIDA scan for further evaluation.Air in urinary bladder, which may be iatrogenic. Correlate clinically.2 mm nonobstructing left renal stone. S/p Cefepime and Flagyl, now on PO Cefdinir and Flagyl Plan is to complete 14 days of total antibiotics Liver enzymes resolved Surgery recommended no intervention Elevated liver enzymes, resolved Likely from alcohol and drug abuse resolving OMAIRA Cr 1.11, baseline normal Discontinue IVF and monitor Lisinopril on hol d encourage oral intake Status at Discharge Cognitive/behavioral status at discharge: Guarded Time Spent with Patient Time attestation: Total time spent providing and/or coordinating discharge services: 45 minutes Exam Narrative: General: Drowsy Lungs/Chest: Trachea central Clear BS B/L, No crackles or wheezing. Cardiac: RRR. Normal S1 S2. No murmurs Circulation: Pedal pulses are intact and symmetrical. Abdomen: Normal bowel sounds.. Soft. NT. ND. Extremities: No clubbing, cyanosis or edema. Warm : Daniel in place Neurologic: Drowsy Discharge Plan Discharge Consulting providers: Nader Luong; Asher Mayorga; Raheem James; Maria Del Carmen Fabian; Jose Anderson; Zaida Reich; Mor Au; Liv Morin; Aspen Bey; Juanita Llamas; Aniya Maurer; Tejinder Vazquez; Corenlia Boogie; Jadiel Arechiga V.; Claude Minor; Andre Dominguez Patient Disposition: Left Against Medical Advice Patient Instructions: Alcohol Withdrawal (GEN), Hypertensive Crisis (GEN), Alcohol Dependence (GEN) Patient Language: Russian Discharge Medications: No Action ondansetron HCl 4 mg tablet 4 mg PO Q8H PRN (Reason: nausea and vomiting) 4 Days Qty: 10 0RF lorazepam [Ativan] 1 mg tablet 1 mg PO BID PRN (Reason: nausea and vomiting) Qty: 20 0RF capsaicin 0.075 % cream 1 applic topical TID 7 Days Qty: 57 0RF Rx Instructions: do not wash area for at least 30 min after application metoclopramide HCl [Reglan] 5 mg tablet 5 mg PO DAILY 14 Days Qty: 14 0RF azithromycin [Zithromax Z-Tristian] 250 mg tablet 250 mg PO DAILY 10 Days Qty: 10 0RF albuterol sulfate 90 mcg/actuation HFA aerosol inhaler 90 mcg inhalation Q4-6H PRN (Reason: Shortness Of Breath Or Wheezing) lisinopril 40 mg tablet 40 mg PO DAILY Date of admission: 10/18/24 21:10 Primary Care Provider: Joellen Shepherd Admitting Provider: Tono Brady Attending physician on admission: Vinny Walker Condition: Improved
== END 2024-11-04 18:20 | disposition left against medical advice (07) | DRG 199 ==
LOC: ANHED 20:07 → ANHICU 22:00 → ANH2MED 10-24 14:46 → ANHICU 11-07 08:53 → ANHIMU 11-07 08:53
PROVIDERS: Internal Medicine; Nurse Practitioner Acute Care; Physician Assistant; Specialist; Admitting Provider Family Medicine; Emergency Provider Physician Assistant; PCP Nurse Practitioner Family; Visit Provider General Practice
DX: I16.1 Hypertensive emergency (principal); I21.4 Non-ST elevation (NSTEMI) myocardial infarction; I10 Essential (primary) hypertension; J44.9 Chronic obstructive pulmonary disease, unspecified; N17.9 Acute kidney failure, unspecified; E86.0 Dehydration; E87.6 Hypokalemia; E83.41 Hypermagnesemia; E46 Unspecified protein-calorie malnutrition; K81.9 Cholecystitis, unspecified; R45.1 Restlessness and agitation; F41.1 Generalized anxiety disorder; F32.A Depression, unspecified; F19.10 Other psychoactive substance abuse, uncomplicated; F10.139 Alcohol abuse with withdrawal, unspecified; F17.210 Nicotine dependence, cigarettes, uncomplicated; Z20.822 Contact with and (suspected) exposure to COVID-19
CPT/HCPCS: 36415; 70450; 70496; 70498; 71045; 73090; 74018; 74176; 76705; 76775; 80048; 80053; 80074; 80307; 81001; 82077; 82140; 82550; 82948; 83605; 83690; 83735; 83880; 84100; 84443; 84484; 85025; 85027; 85610; 85730; 86703; 87040; 87086; 87186; 87637; 87641; 93005; 93306; 96361; 96365; 96375; 96376; 97110; 97116; 97161; 97166; 97530; 99291; A9270; G0432; J0692; J0696; J1171; J1200; J1644; J1836; J2060; J2212; J2270; J2305; J2405; J2550; J2919; J3410; J3411; J3475; J3480; J7030; J7040; J7042; J7070; J7120; Q9967

== ENCOUNTER 2024-11-17 14:29 | Outpatient (CLI) | payer OTHER, SELFPAY ==
[2024-11-17 14:49] LABS: Basophils Absolute Auto 0.03 K/mm3 (0.00-0.10); Basophils Percent Auto 0.5 % (0.0-1.0); Eosinophils Percent Auto 3.1 % (1.0-6.0); Hematocrit 31.9 % (35.0-49.0); Immature Granulocyte Absolute 0.04 K/mm3 (0.00-0.00); Immature Granulocyte Percent A 0.6 % (0.0-0.0); Immature Platelet Fraction Pct 1.6 % (1.0-7.0); Lymphocytes Absolute Auto 1.69 K/mm3 (1.10-4.50); Lymphocytes Percent Auto 25.8 % (18.0-42.0); Mean Corpuscular HGB Conc 31.3 g/dL (32-36); Mean Corpuscular Hemoglobin 29.2 pg (27.0-31.0); Mean Corpuscular Volume 93.3 fL (78.0-102.0); Mean Platelet Volume 9.8 fl (9.2-11.8); Monocytes Absolute Auto 0.55 K/mm3 (0.10-0.90); Monocytes Percent Auto 8.4 % (2.0-11.0); Neutrophils Absolute Auto 4.03 K/mm3 (1.70-7.20); Neutrophils Percent Auto 61.6 % (50.0-70.0); Platelet Count Result 561 K/mm3 (150-420); Red Blood Count 3.42 M/mm3 (4.20-5.40); White Blood Count 6.5 K/mm3 (4.8-10.8)
--- OUTSIDE RECORDS SUMMARY | 2024-11-17 15:05 | XMS_ITS | Encounter Summary ---
Author Organization [facility] Address [address] [place] [address] Phone Care Team Providers Care Portfolio Strategist Name Role Phone Joellen Shepherd APRN, COTTON STRIPPER Primary Care Provi jameel Reason for Visit * Auth/Cert (Routine) Specialty Diagnoses / Procedures Referred By Contac t Referred To Contact Referral ID Status Reason Start Date Expiration Date Visits Re quested Visits Authorized [id number] 1 1 Encounter Details Date Type Department Care Team (Late st Contact Info) Description 11/16/2024 1:30 PM CDT [facility] [address] [place] [address] Keri Lopez, TALEND DEVELOPER [place] TALEND DEVELOPER - HOME VISIT Social History Tobacco Use Types Packs/Day Years Used Date Smoking Tobacco: Every Day Cigarettes 1 26.3 Started: 1998 Passive Smoke Exposure: Current Alcohol Use Standard Drinks/Week Comments Not Currently 0 (1 standard drink = 0.6 oz pure alcohol) Around a pint a day. last drink 5 weeks ago [facility] Utilities Answer Date Recorded In the past 12 months has [employer], gas, oil, or water [employer] threatened to shut off services in your home? Patient declined 11/08/2024 Social Connection and Isolation Panel [NHANES] A nswer Date Recorded In a typical week, how many times do you talk on the phone with family, friends, or neighbors? Patient declined 11/08/2024 How often do you get togethe r with friends or relatives? Patient declined 11/08/2024 How often do you attend zoroastrianism or jew serv ices? Patient declined 11/08/2024 Do you belong to any clubs o r organizations such as zoroastrianism groups, unions, fraternal or athletic groups, or school groups? Patient declined 11/08/2024 How often do you attend meet ings of the clubs or organizations you belong to? Patient declined 11/08/2024 Are you , , di vorced, , never , or living with a partner? Patient declined 11/08/2024 AUDIT-C Answer Date Recorded Q1: How often do you have a drink containing alcohol? 4 or more times a week 11/08/2024 Q2: How many drinks containi ng alcohol do you have on a typical day when you are drinking? 3 or 4 Q3: How often do you have si x or more drinks on one occasion? Weekly 11/08/2024 Overall Financial Resource Strain (CARDIA) Answe r Date Recorded How hard is it for you to pa y for the very basics like food, housing, medical care, and heating? Patient declined 11/08/2024 [facility] - Occupational Stress Questionnaire Answer Date Recorded Do you feel stress - tense, restless, nervous, or anxious, or unable to sleep at night because your mind is troubled all the time - these days? Very much 11/08/2024 Exercise Vital Sign Answer Date Recorde d On average, how many days pe r week do you engage in moderate to strenuous exercise (like a brisk walk)? Patient declined On average, how many minutes do you engage in exercise at this level? Patient declined 11/08/2024 Hunger Vital Sign Answer Date Recorded Within the past 12 months, y ou worried that your food would run out before you got the money to buy more. Often true 11/09/19 25 Within the past 12 months, t he food you bought just didn't last and you didn't have money to get more. Often true 11/08/2024 PRAPARE - Transportation Answer Date Re corded In the past 12 months, has l ack of transportation kept you from medical appointments or from getting medications? Yes 08/2024 In the past 12 months, has l ack of transportation kept you from meetings, work, or from getting things needed for daily living? No 11/08/2024 Housing Stability Vital Sign Answer Lv e Recorded In the last 12 months, was t here a time when you were not able to pay the mortgage or rent on time? No 11/08/2024 In the past 12 months, how m any times have you moved where you were living? 0 11/08/2024 At any time in the past 12 m [facility], were you homeless or living in a [facility] (including now)? No 11/08/2024 Sexually Active Control Partners Comments Not Currently Comments No Sex and Gender Information Value Date Recorded Sex Assigned at Not on file Legal Sex Female 1:48 PM CDT Gender Identity Not on file Sexual Orientation Not on file documented as of this encounter Plan of Treatment Upcoming Encounters Date Type Department Care Team (Late st Contact Info) Description 11/18/2024 1:00 AM CDT Home Care Visit [address] [address] Bettye Whitaker, [place] 11/18/2024 8:30 AM CDT Home Care Visit [address] [address] Meg Cassidy, [place] 11/22/2024 1:00 AM CDT Home Care Visit [address] [address] Bettye Whitaker, [place] 11/25/2024 1:00 AM CDT Home Care Visit [address] [address] Bettye Whitaker, [place] 12/02/2024 1:00 AM CDT Home Care Visit [address] [address] Bettye Whitaker, [place] 12/09/2024 1:00 AM CDT Home Care Visit [address] [address] Bettye Whitaker, [place] 12/16/2024 1:00 AM CDT Home Care Visit [address] [address] Bettye Whitaker, [place] 12/23/2024 1:00 AM CD[facility] [address] [place] [address] Bettye Whitaker, [place] 12/30/2024 1:00 AM CDT Home Care Visit [address] [address] Bettye Whitaker, [place] 01/06/2025 1:00 AM CDT Home Care Visit [address] [address] Bettye Whitaker, [place] 01/12/2025 1:00 AM CDT Appointment [address] [address] Bettye Whitaker, [place] documented as of this encounter Visit Diagnoses Not on filedocumented in this encounter Additional Health Concerns Infection Onset Date Last Indicated Resolved Time C. difficile 11/08/2024 11/08/2024 documented as of this encounter Care Teams Portfolio Strategist Relationship Specialty Start Date End Date Joellen Shepherd, REFRIGERATOR TESTER, COTTON STRIPPER [address] [place] [address] PCP - General Advanced Practice Nurse 11/09/24 documented as of this encounter
--- OUTSIDE RECORDS SUMMARY | 2024-11-17 15:05 | XMS_ITS | Encounter Summary ---
Author Organization [facility] Address [address] [place] [address] Phone Care Team Providers Care Shipbuilding Draftsperson Name Role Phone Joellen Shepherd APRN, PLASTIC MANAGER Primary Care Provi jameel Reason for Visit * Auth/Cert (Routine) Specialty Diagnoses / Procedures Referred By Contac t Referred To Contact Referral ID Status Reason Start Date Expiration Date Visits Re quested Visits Authorized [id number] 1 1 Encounter Details Date Type Department Care Team (Late st Contact Info) Description 11/16/2024 [facility] [address] [place] [address] Meg Cassidy, PT CASE COMMUNICATION Social History Tobacco Use Types Packs/Day Years Used Date Smoking Tobacco: Every Day Cigarettes 1 26.3 Started: 1998 Passive Smoke Exposure: Current Alcohol Use Standard Drinks/Week Comments Not Currently 0 (1 standard drink = 0.6 oz pure alcohol) Around a pint a day. last drink 5 weeks ago [facility] Utilities Answer Date Recorded In the past 12 months has [employer], gas, oil, or water [employer] threatened to shut off services in your home? Patient declined 11/08/2024 Social Connection and Isolation Panel [NHANES] A nswer Date Recorded In a typical week, how many times do you talk on the phone with family, friends, or neighbors? Patient declined 11/08/2024 How often do you get togethe r with friends or relatives? Patient declined 11/08/2024 How often do you attend religion or christianity serv ices? Patient declined 11/08/2024 Do you belong to any clubs o r organizations such as religion groups, unions, fraternal or athletic groups, or [...] medical care, and heating? Patient declined 11/08/2024 [facility] - Occupational Stress Questionnaire Answer Date Recorded [...] any time in the past 12 m onths, were you homeless or living in a detention (including now)? No 11/08/2024 Sexually Active Control [...] 11/18/2024 1:00 AM CDT Home Care Visit [address] [address] Bettye Whitaker, [place] 11/18/2024 8:30 AM CDT Home Care Visit [address] [address] Meg Cassidy, [place] 11/22/2024 1:00 AM CDT Home Care Visit [address] [address] Bettye Whitaker, [place] 11/25/2024 1:00 AM CDT Home Care Visit [address] [address] Bettye Whitaker, [place] 12/02/2024 1:00 AM CDT Home Care Visit [address] [address] Bettye Whitaker, [place] 12/09/2024 1:00 AM CDT Home Care Visit [address] [address] Bettye Whitaker, [place] 12/16/2024 1:00 AM CDT Home Care Visit [address] [address] Bettye Whitaker, [place] 12/23/2024 1:00 AM CDT Home Care Visit [address] [address] Bettye Whitaker, [place] 12/30/2024 1:00 AM CDT Home Care Visit [address] [address] Bettye Whitaker, [place] 01/06/2025 1:00 AM CDT Home Care Visit [address] [address] Bettye Whitaker, [place] 01/12/2025 1:00 AM CDT Appointment [address] [address] Bettye Whitaker, RN [place] documented as of this encounter Visit Diagnoses Not on filedocumented in this encounter Additional Health Concerns Infection Onset Date Last Indicated Resolved Time C. difficile 11/08/2024 11/08/2024 documented as of this encounter Care Teams Shipbuilding Draftsperson Relationship Specialty Start Date End Date Joellen Shepherd, FINE ARTS CHAIR, PLASTIC MANAGER [address] [place] [address] PCP - General Advanced Practice Nurse 11/09/24 documented as of this encounter
--- OUTSIDE RECORDS SUMMARY | 2024-11-17 15:06 | XMS_ITS | Clinical Summary ---
Author Organization [facility] Address [address] [place] [address] Phone Care Team Providers Care Delinquent Notice Machine Operator Name Role Phone Joellen Shepherd APRN, ACTING PROFESSOR Primary Care Provi jameel Allergies Active Allergy Reactions Criticality Noted Date Comments Iodinated Contrast Media Rash Low 11/08/2024 Latex Unknown Medium 11/08/2024 Levofloxacin Itching Medium 11/08/2024 Mupirocin Rash Low 11/08/2024 Penicillin G Swelling High 11/08/2024 Mouth and throat swell. Sulfa Antibiotics Nausea Low 11/08/2024 Medications folic acid (FOLVITE) 1 MG Tablet Take 1 Tablet by mouth daily. 30 Tablet 5 Active hydrOXYzine (ATARAX) 25 MG Tablet Take 1 Tablet by mouth every 8 hours as needed for Anxiety. 30 Tablet 5 Active nicotine (NICODERM CQ) 21 MG/24HR PATCH 24 HR 1 Patch by Transdermal route daily as needed for Other (smoking cessation). 30 Patch 5 Active ondansetron (ZOFRAN-ODT) 4 MG TABLET DISPERSIBLE Take 1 Tablet by mouth every 6 hours as needed for Nausea - 1st line. 10 Tablet 5 Active thiamine (VITAMIN B1) 100 MG Tablet Take 1 Tablet by mouth daily for 30 days. 30 Tablet 5 12/13/19 25 Active vancomycin (VANCOCIN) 125 MG CapsuleIndicatio ns:Clostridioide s Difficile Infection Take 1 Capsule by mouth every 6 hours for 11 days. Indications: Clostridium Difficile Infection 44 Capsule 5 11/23/19 25 Active lisinopril (PRINIVIL, ZESTRIL) 5 MG Tablet Take 1 Tablet by mouth daily. 30 Tablet 5 Active Active Problems Problem Noted Date Diagnosed Date Acute urinary retention 11/08/2024 Hypertensive urgency 11/08/2024 Sepsis OMAIRA (acute kidney injury) Ileus Cholecystitis Diarrhea Normocytic anemia Hypokalemia Polysubstance dependence Tobacco dependency Alcohol dependency Encounters Date Type Department Care Team Description 11/16/2024 1:30 PM CDT Home Care Visit [address] [address] Keri Lopez, LANDFILL GRADER LANDFILL GRADER - HOME VISIT 11/16/2024 Home Care Visit [address] [address] Meg Cassidy, PT CASE COMMUNICATION 11/15/2024 2:30 PM CDT Home Care Visit [address] [address] Bettye Whitaker, RN SN - OASIS START OF CARE 11/15/2024 Plan of Care Documentation [address] [address] 11/14/2024 7:08 AM CDT - 11/14/2024 11:59 AM CDT [facility] [address] [place] [address] Andrei Yao DO Hypertension Discharge Disposition: Discharged to home or Selfcare 11/14/2024 Travel 11/08/2024 8:15 PM CDT - 11/12/2024 12:26 PM CDT [facility] [address] [place] [address] Sanjay Reed MD Sepsis (HCC) Discharge Disposition: Home Health Care Svc 11/08/2024 Travel from Last 3 Months Family History Medical History Relation Name Comments Bone Cancer Father Hypertension Father Lung Cancer Father brain tumor Father Chronic Obstructive Pulmonary Disease Mother Hypertension Mother generalized anxiety Mother Relation Name Status Comments Father Mother Social History Tobacco Use Types Packs/Day Years Used Date Smoking Tobacco: Every Day Cigarettes 1 26.3 Started: 1998 Passive Smoke Exposure: Current Tobacco Cessation:Ready to Q uit: Not Asked; Counseling Given: Not Answered Alcohol Use Standard Drinks/Week Comments Not Currently 0 (1 standard drink = 0.6 oz pure alcohol) Around a pint a day. last drink 5 weeks ago [facility] Relationship Scienceities Answer Date Recorded In the past 12 months has [employer] gas, oil, or water [employer] threatened to shut off services in your home? Patient declined 11/08/2024 Social Connection and Isolation Panel [NHANES] A nswer Date Recorded In a typical week, how many times do you talk on the phone with family, friends, or neighbors? Patient declined 11/08/2024 How often do you get togethe r with friends or relatives? Patient declined 11/08/2024 How often do you attend religion or rastafarian serv ices? Patient declined 11/08/2024 Do you [...] medical care, and heating? Patient declined 11/08/2024 [facility] of Occupat ional Health - Occupational Stress Questionnaire [...] any time in the past 12 m [facility], were you homeless or living in a [place] health care facility (including now)? No 11/08/2024 Sexually Active Control Partners Comments Not Currently Comments No Sex and Gender Information Value Date Recorded Sex Assigned at Not on file Legal Sex Female 1:48 PM CDT Gender Identity Not on file Sexual Orientation Not on file Last Filed Vital Signs Vital Sign Reading Time Taken Comments Blood Pressure 146/80 11/15/2024 2:49 PM CDT Pulse 100 11/15/2024 2:49 PM CDT Temperature 37.1 C (98.7 F) 11/15/2024 2:49 PM CDT Respiratory Rate 18 11/15/2024 2:49 PM CDT Oxygen Saturation 99% 11/15/2024 2:49 PM CDT Inhaled Oxygen Concentration - - Weight 56.7 kg (125 lb) 11/15/2024 2:49 PM CDT Height 165.1 cm (5' 5 ) 11/15/2024 2:49 PM CDT Body Mass Index 20.8 11/15/2024 2:49 PM CDT Plan of Treatment Upcoming Encounters Date Type Department Care Team (Late st Contact Info) Description 11/18/2024 1:00 AM CDT Home Care Visit [address] [address] Bettye Whitaker, RN [place] 11/18/2024 8:30 AM CDT Home Care Visit [address] [address] Meg Cassidy, PT 11/22/2024 1:00 AM CDT Home Care Visit [address] [address] Bettye Whitaker, RN [place] 11/25/2024 1:00 AM CDT Home Care Visit [address] [address] Bettye Whitaker, RN [place] 12/02/2024 1:00 AM CDT Home Care Visit [address] [address] Bettye Whitaker, RN [place] 12/09/2024 1:00 AM CDT Home Care Visit [address] [address] Bettye Whitaker, RN [place] 12/16/2024 1:00 AM CDT Home Care Visit [address] [address] Bettye Whitaker, RN [place] 12/23/2024 1:00 AM CDT Home Care Visit [address] [address] Bettye Whitaker, RN [place] 12/30/2024 1:00 AM CDT Home Care Visit [address] [address] Bettye Whitaker RN [place] 01/06/2025 1:00 AM CDT [facility] Visit [facility] [address] [place] [address] Bettye Whitaker RN [place] 01/12/2025 1:00 AM CDT Appointment [facility] [address] [place] [address] Bettye Whitaker, RN [place] Health Maintenance Due Date Last Done Comments Hepatitis C Virus (HCV) Screening 1975 Mammogram 1975 TdaP Immunization 1975 Hepatitis B Immunization (1 of 3 - 19+ 3-dose series) 11/09/1994 Pneumococcal Immunization Co mbined (1 of 2 - PCV) 11/09/1994 Pap Smear 11/09/1996 Cervical Cancer Screening (CCS) 11/09/2005 HPV/Cotest 11/09/2005 Discussion re Starting/Frequ ency of Mammograms 2015 Colonoscopy 11/09/2020 Colorectal Cancer Screening 11/09/2020 SARS-COV-2 Immunization (2023- season) 2024 Influenza Immunization (Seas on Ended) 2025 Respiratory Syncytial Virus (RSV) Immunization (Adult) (1 - 1-dose 75+ series) 11/09/2050 Meningococcal Immunization (ACWY) Aged Out No longer eligible based on patient's age to complete this topic Rotavirus Immunization Aged Out No lo nger eligible based on patient's age to complete this topic Procedures Procedure Name Priority Date/Time Associated Diagnosis Comments URINALYSIS REFLEX IF INDICATED BY ABNORMAL RESULTS STAT 11/14/2024 9:53 AM CDT EKG 12 LEAD STAT 11/14/2024 8:07 AM CDT MANUAL DIFFERENTIAL STAT 11/14/2024 7:53 AM CDT CBC WITH AUTO DIFFERENTIAL STAT 11/14/2024 7:53 AM CDT TROPONIN I, HIGH SENSITIVITY (HSTRP) STAT 11/14/2024 7:53 AM CDT COMPLETE BLOOD COUNT (CBC) WITH DIFF STAT 11/14/2024 7:53 AM CDT CMP (COMPREHENSIVE METABOLIC PANEL) STAT 11/14/2024 7:53 AM CDT EKG SCAN 11/14/2024 12:00 AM CDT CBC WITH AUTO DIFFERENTIAL Routine 11/12/2024 4:23 AM CDT COMPLETE BLOOD COUNT (CBC) WITH DIFF Routine 11/12/2024 4:23 AM CDT BASIC METABOLIC PANEL W/ CALCIUM TOTAL Routine 11/12/2024 4:23 AM CDT CULTURE, BLOOD Routine 11/11/2024 5:38 PM CDT CULTURE, BLOOD Routine 11/11/2024 5:37 PM CDT CBC WITH AUTO DIFFERENTIAL Routine 11/11/2024 4:47 AM CDT COMPLETE BLOOD COUNT (CBC) WITH DIFF Routine 11/11/2024 4:47 AM CDT BASIC METABOLIC PANEL W/ CALCIUM TOTAL Routine 11/11/2024 4:47 AM CDT CBC WITH AUTO DIFFERENTIAL Routine 2024 4:25 AM CDT COMPLETE BLOOD COUNT (CBC) WITH DIFF Routine 2024 4:25 AM CDT BASIC METABOLIC PANEL W/ CALCIUM TOTAL Routine 2024 4:25 AM CDT RHYTHM STRIP 2024 12:00 AM CDT RHYTHM STRIP 2024 12:00 AM CDT US ABDOMEN LIMITED, LEVEL 1 - SINGLE ORGAN Stat with Interpretation 11/09/2024 1:29 PM CDT CBC WITH AUTO DIFFERENTIAL Routine 11/09/2024 4:23 AM CDT MAGNESIUM (MG) Routine 11/09/2024 4:23 AM CDT RENAL FUNCTION PANEL (RFP) Routine 11/09/2024 4:23 AM CDT COMPLETE BLOOD COUNT (CBC) WITH DIFF Routine 11/09/2024 4:[address] RENAL STONE STUDY (ABDOMEN AND PELVIS W/O CONTRAST) Stat with Interpretation 11/09/2024 12:43 AM CDT RHYTHM STRIP 11/09/2024 12:00 AM CDT RHYTHM STRIP 11/09/2024 12:00 AM CDT RHYTHM STRIP 11/09/2024 12:00 AM CDT CONSULT - OTHER 11/09/2024 12:00 AM CDT REFLEX C DIFF QUIK CHEK COMPLETE Routine 11/08/2024 11:25 PM CDT CULTURE, STOOL Routine 11/08/2024 11:25 PM CDT C. DIFF BY PCR Routine 11/08/2024 11:25 PM CDT C. DIFFICILE BY PCR Routine 11/08/2024 11:25 PM CDT UR OSMOLALITY Routine 11/08/2024 11:24 PM CDT UR POTASSIUM (K) RANDOM Routine 11/08/2024 11:24 PM CDT UR CHLORIDE (CL) RANDOM Routine 11/08/2024 11:24 PM CDT UR SODIUM (NA) RANDOM Routine 11/08/2024 11:24 PM CDT CBC WITH AUTO DIFFERENTIAL STAT 11/08/2024 10:05 PM CDT MAGNESIUM (MG) Routine 11/08/2024 10:05 PM CDT VITAMIN B12 Routine 11/08/2024 10:05 PM CDT FERRITIN Routine 11/08/2024 10:05 PM CDT FOLIC ACID (FOLATE) Routine 11/08/2024 10:05 PM CDT IRON,TRANSFERN,MAGED C.TIBC,%SAT Routine 11/08/2024 10:05 PM CDT LACTIC ACID (LACTATE) STAT 11/08/2024 10:05 PM CDT CMP (COMPREHENSIVE METABOLIC PANEL) Routine 11/08/2024 10:05 PM CDT OSMOLALITY SERUM STAT 11/08/2024 10:05 PM CDT COMPLETE BLOOD COUNT (CBC) WITH DIFF STAT 11/08/2024 10:05 PM CDT US - ABDOMEN/PELVIS 10/21/2024 12:00 AM CDT US - ABDOMEN/PELVIS 10/21/2024 12:00 AM CDT US - ABDOMEN/PELVIS 10/21/2024 12:[address] - ABDOMEN/PELVIS 10/20/2024 12:00 AM CDT CARDIOLOGY CONSULT 10/19/2024 12:00 AM CDT FAMILY MEDICINE CONSULT 10/18/2024 12:00 AM CDT CONSULT - OTHER 10/18/2024 12:00 AM CDT CONSULT - OTHER 10/18/2024 12:00 AM CDT CARDIOLOGY CONSULT 10/18/2024 12:00 AM CDT CONSULT - OTHER 10/18/2024 12:00 AM CDT from Last 3 Months Results * (ABNORMAL) URINALYSIS REFLEX IF INDICATED BY ABNORMAL RESULTS (11/14/2024 9:53 AM CDT) SPECIFIC GRAVITY 1.010 1.003 - 1.030 11/14/2024 10:51 AM CDT [facility] URINE PH 7.0 5.0 - 9.0 11/14/2024 10:51 AM CDT [facility] WBC ESTERASE 25 /ul(A) Negative 11/14/2024 10:51 AM CDT [facility] NITRITE Negative Negative 11/14/2024 10:51 AM CDT [facility] PROTEIN, RANDOM URINE 100 mg/dL(A) Negative 11/14/2024 10:51 AM CDT [facility] URINE GLUCOSE, QUAL Negative Negative 11/14/2024 10:51 AM CDT [facility] URINE KETONES Negative Negative 11/14/2024 10:51 AM CDT [facility] UROBILINOGEN Normal Normal mg/dL 11/14/2024 10:51 AM CDT [facility] URINE BLOOD 50 /uL(A) Negative billy/ul 11/14/2024 10:51 AM CDT [facility] URINALYSIS COLOR Yellow 11/15/19 10:51 AM CDT [facility] URINALYSIS CLARITY Clear 11/14/2024 10:51 AM CDT [facility] WBC (Urine) 0-5 Negative, 0-5 /hpf 11/14/2024 10:51 AM CDT [facility] URINE RBC'S 11-20(A) Negative, 0-2 /hpf 11/14/2024 10:51 AM CDT [facility] EPITHELIAL CELLS Small amount /lpf 2024 10:51 AM CDT [facility] BACTERIA, URINE Few(A) Negative /hpf 11/14/2024 10:51 AM CDT [facility] Urine (Indwelling Catheter) Non-Phlebotomy Collection / Unknown 11/14/2024 9:53 AM CDT 11/14/2024 10:27 AM CDT us Andrei Yao DO URINE ORDERABLES Final Result [facility] [place] [address] * EKG 12 LEAD (11/14/2024 8:07 AM CDT) Ventricular Rate 99 BPM EXTERNAL EKG Atrial Rate 99 BPM EXTERNAL EKG P-R Interval 124 ms EXTERNAL EKG QRS Duration 92 ms EXTERNAL EKG Q-T Duration 376 ms EXTERNAL EKG QTC CALCULATION 482 ms EXTERNAL EKG P [place] 68 degrees EXTERNAL EKG R [place] 72 degrees EXTERNAL EKG T [place] 72 degrees EXTERNAL EKG 11/14/2024 8:07 AM CDT Impressions EXTERNAL EKG - 11/15/2024 4:45 PM CDT Normal sinus rhythm Possible Left atrial enlargement QTcB >= 480 msec Abnormal ECG No previous ECGs available Confirmed by MADELINE SANDOVAL ([id number]) on 11/15/2024 4:45:02 PM Narrative Procedure Note Madeline Sandoval MD - 11/15/2024 IMPRESSION: Normal sinus rhythm Possible Left atrial enlargement QTcB >= 480 msec Abnormal ECG No previous ECGs available Confirmed by MADELINE ASNDOVAL ([id number]) on 11/15/2024 4:45:02 PM us Andrei Yao DO IMG ECG ORDERABLES Belia l Result Performing Organization Address [facility] Co de Phone Number EXTERNAL EKG * TROPONIN I, HIGH SENSITIVITY (HSTRP) (11/14/2024 7:53 AM CDT) TROPONIN I, HIGH SENSITIVITY- [place] 9 <=14 ng/L 11/14/2024 9:12 AM CDT [facility] Comment: High-sensitivity troponin I results are reported in ng/L making the result appear to be 1,000 times higher than the contemporary troponin I value which is reported in ng/ml. Results from [place]. Blood Venipuncture / Unknown 11/14/2024 7:53 AM CDT 11/14/2024 8:40 AM CDT us Andrei Yao DO CHEMISTRY ORDERABLES Fi nal Result Performing Organization Address City/[facility] Co de Phone Number [facility] [place] [address] * (ABNORMAL) Manual Differential (11/14/2024 7:53 AM CDT) BANDS % 2.0 % 11/14/2024 9:22 AM CDT [facility] NEUTROPHILS % 73.0 47.0 - 73.0 % 11/14/2024 9:22 AM CDT [facility] LYMPHOCYTES % 19.0 18.0 - 42.0 % 11/14/2024 9:22 AM CDT [facility] MONOCYTES % 3.0(L) 4.0 - 12.0 % 11/14/2024 9:22 AM CDT [facility] EOSINOPHILS % 3.0 0.0 - 5.0 % 11/14/2024 9:22 AM CDT [facility] NEUTROPHILS ABSOLUTE 7.62 1.60 - 7.70 10(3)/mcL 11/14/2024 9:22 AM CDT [facility] LYMPHOCYTES ABSOLUTE 1.93 1.30 - 3.20 10(3)/mcL 11/14/2024 9:22 AM CDT [facility] MONOCYTES ABSOLUTE 0.30 0.20 - 1.00 10(3)/mcL 11/14/2024 9:22 AM CDT [facility] EOSINOPHILS ABSOLUTE 0.30 0.00 - 0.40 10(3)/mcL 11/14/2024 9:22 AM CDT [facility] REACTIVE LYMPHOCYTES 1 11/14/2024 9:22 AM CDT [facility] WBC MORPH STATUS Normal 11/15/19 9:22 AM CDT [facility] RBC MORPH STATUS Normal 11/15/19 9:22 AM CDT [facility] PLATELET STATUS Normal 9:22 AM CDT [facility] Blood Venipuncture / Unknown 11/14/2024 7:53 AM CDT 11/14/2024 8:40 AM CDT us Andrei Celsotaqueria Yao DO HEMATOLOGY ORDERABLES F inal Result [facility] [address] [place] [address] * (ABNORMAL) CBC with Auto Differential (11/14/2024 7:53 AM CDT) Only the most recent of6 resultswithin the time period is included. WBC 10.16 4.00 - 12.00 10(3)/mcL 11/14/2024 9:22 AM CDT [facility] RBC 3.64(L) 3.80 - 5.30 10(6)/mcL 11/14/2024 9:22 AM CDT [facility] HEMOGLOBIN (HGB) 10.8(L) 12.0 - 15.8 g/dL 11/14/2024 9:22 AM CDT [facility] HEMATOCRIT (HCT) 32.9(L) 36.0 - 47.0 % 11/14/2024 9:22 AM CDT [facility] MCV 90.4 82.0 - 96.0 fL 11/14/2024 9:22 AM CDT [facility] MCH 29.7 26.0 - 34.0 pg 11/14/2024 9:22 AM CDT [facility] MCHC 32.8 31.0 - 36.0 g/dL 11/14/2024 9:22 AM CDT [facility] PLATELET COUNT 578(H) 140 - 440 10(3)/mcL 11/14/2024 9:22 AM CDT [facility] RDW 13.3 11.8 - 15.5 % 11/14/2024 9:22 AM CDT [facility] MPV 10.6 9.7 - 12.4 fL 11/14/2024 9:22 AM CDT [facility] NRBC PER 100 WBC 0 11/14/2024 9:22 AM CDT [facility] RESULTS ARE CONSISTENT WITH PERIPHERAL SMEAR REVIEW Yes 11/14/2024 9:22 AM CDT [facility] RBC MORPHOLOGY CONSISTENT WITH INDICES Yes 11/14/2024 9:22 AM CDT [facility] Blood Venipuncture / Unknown 11/14/2024 7:53 AM CDT 11/14/2024 8:40 AM CDT us Andrei Yao DO HEMATOLOGY ORDERABLES F inal Result [facility] [address] [place] [address] * CMP (Comprehensive Metabolic Panel) (11/14/2024 7:53 AM CDT) Only the most recent of2 resultswithin the time period is included. SODIUM 141 136 - 145 mmol/L 11/14/2024 9:07 AM CDT [facility] POTASSIUM 3.5 3.5 - 5.1 mmol/L 11/14/2024 9:07 AM CDT [facility] CHLORIDE 106 98 - 107 mmol/L 11/14/2024 9:07 AM CDT [facility] CO2, VENOUS 25 22 - 30 mmol/L 11/14/2024 9:07 AM CDT [facility] ANION GAP 13.5 <18.0 mmol/L 11/14/2024 9:07 AM CDT [facility] GLUCOSE 97 70 - 99 mg/dL 11/14/2024 9:07 AM CDT [facility] BUN 17 5 - 18 mg/dL 11/14/2024 9:07 AM CDT [facility] CREATININE, BLOOD 0.85 0.60 - 1.00 mg/dL 11/14/2024 9:07 AM CDT [facility] BUN/CREATININE RATIO 20 12 - 20 ratio 11/14/2024 9:07 AM CDT [facility] TOTAL PROTEIN 7.5 6.0 - 8.0 g/dL 11/14/2024 9:07 AM CDT [facility] ALBUMIN 3.7 3.5 - 5.0 g/dL 11/14/2024 9:07 AM CDT [facility] A/G RATIO 1.0 1.0 - 2.2 11/14/2024 9:07 AM CDT [facility] CALCIUM 9.0 8.7 - 10.5 mg/dL 11/14/2024 9:07 AM CDT [facility] T BILI 0.2 0.2 - 1.2 mg/dL 11/14/2024 9:07 AM CDT [facility] SGOT (AST) 23 <43 U/L 11/14/2024 9:07 AM CDT [facility] SGPT (ALT) 18 <56 U/L 11/14/2024 9:07 AM CDT [facility] ALKALINE PHOSPHATASE 83 40 - 150 U/L 11/14/2024 9:07 AM CDT [facility] GFR, ESTIMATED >60 >=60 11/14/2024 9:07 AM CDT [facility] Comment: Creatinine Clearance is the preferred criteria for selecting drug dose adjustments in renally impaired patients. The GFR is provided as additional pertinent clinical information. GFR is reported in mL/min/1.73 sq m. Calculation based on the Chronic Kidney Disease Epidemiology Collaboration (CKD- EPI) equation refit without adjustment for race. GFR, EST. >60 >=60 025 9:07 AM CDT [facility] GFR, EST. NONAFRICAN >60 >=60 11/14/2024 9:07 AM CDT [facility] Blood Venipuncture / Unknown 11/14/2024 7:53 AM CDT 11/14/2024 8:40 AM CDT us Andrei Yao DO CHEMISTRY ORDERABLES Fi nal Result [facility] [address] [place] [address] * EKG SCAN (11/14/2024 12:00 AM CDT) 11/14/2024 us Provider Scan IMG ECG ORDERABLES Final Result RESULTING AGENCY * (ABNORMAL) BMP with Ca, Total (11/12/2024 4:23 AM CDT) Only the most recent of3 resultswithin the time period is included. SODIUM 141 136 - 145 mmol/L 11/12/2024 5:58 AM CDT [facility] POTASSIUM 3.6 3.5 - 5.1 mmol/L 11/12/2024 5:58 AM CDT [facility] CHLORIDE 109(H) 98 - 107 mmol/L 11/12/2024 5:58 AM CDT [facility] CO2, VENOUS 23 22 - 30 mmol/L 11/12/2024 5:58 AM CDT [facility] ANION GAP 12.6 <18.0 mmol/L 11/12/2024 5:58 AM CDT [facility] GLUCOSE 77 70 - 99 mg/dL 11/12/2024 5:58 AM CDT [facility] BUN 12 5 - 18 mg/dL 11/12/2024 5:58 AM CDT [facility] CREATININE, BLOOD 0.95 0.60 - 1.00 mg/dL 11/12/2024 5:58 AM CDT [facility] BUN/CREATININE RATIO 13 12 - 20 ratio 11/12/2024 5:58 AM CDT [facility] CALCIUM 8.4(L) 8.7 - 10.5 mg/dL 11/12/2024 5:58 AM CDT [facility] GFR, ESTIMATED >60 >=60 11/12/2024 5:58 AM CDT [facility] Comment: Creatinine Clearance is the preferred criteria for selecting drug dose adjustments in renally impaired patients. The GFR is provided as additional pertinent clinical information. GFR is reported in mL/min/1.73 sq m. Calculation based on the Chronic Kidney Disease Epidemiology Collaboration (CKD- EPI) equation refit without adjustment for race. GFR, EST. >60 >=60 025 5:58 AM CDT [facility] GFR, EST. NONAFRICAN >60 >=60 11/12/2024 5:58 AM CDT [facility] Blood Venipuncture / Unknown 11/12/2024 4:23 AM CDT 11/12/2024 5:34 AM CDT us Amy Villeda APRN, ACTING PROFESSOR CHEMISTRY ORDERABLES Final Result Performing Organization Address City/[facility]/ZIP Co de Phone Number [facility] [place] [address] * Culture, Blood (11/11/2024 5:38 PM CDT) Only the most recent of2 resultswithin the time period is included. CULTURE RESULTS NO GROWTH WITHIN 5 DAYS, FINAL RESULT 11/16/2024 6:01 PM CDT [facility] Culture (Peripheral Vein) Venipuncture / Unknown 11/11/2024 5:38 PM CDT 11/11/2024 5:40 PM CDT us Sanjay Reed MD MICROBIOLOGY - GENERAL O RDERABLES Final Result [facility] [address] [place] [address], * RHYTHM STRIP (2024 12:00 AM CDT) Only the most recent of5 resultswithin the time period is included. 2024 us Provider Scan IMG ECG ORDERABLES Final Result RESULTING AGENCY * US ABDOMEN LIMITED, LEVEL 1 - SINGLE ORGAN OR SOFT TISSUE (11/09/2024 1:29 PM CDT) Anatomical Region Laterality Modality Abdomen N/A Ultrasound 11/09/2024 1:54 PM CDT Impressions 11/09/2024 1:57 PM CDT IMPRESSION: Biliary sludge and borderline gallbladder wall thickening. No pericholecystic fluid or positive sonographic Fernando's sign. Findings are equivocal for acute cholecystitis. If there is persistent clinical concern, HIDA scan may be performed. Narrative 11/09/2024 1:57 PM CDT EXAM DESCRIPTION: US ABDOMEN LIMITED, LEVEL 1 - SINGLE ORGAN OR SOFT TISSUE REASON FOR STUDY: abdominal pain TECHNIQUE: Ultrasound of the right upper quadrant of the abdomen was performed with grayscale and color doppler. COMPARISON: CT abdomen pelvis 11/09/2024 FINDINGS: PANCREAS: Visualized portions of the pancreas are within normal limits. Portions of the pancreatic body and tail are obscured due to bowel gas. LIVER: The liver appears normal in echotexture and echogenicity. No focal lesion identified. The main portal vein is patent with antegrade flow. GALLBLADDER: The gallbladder is filled with biliary sludge. Borderline bladder wall thickening measuring 3 mm. No pericholecystic fluid. No positive sonographic Whittier sign reported. BILIARY: There is no intrahepatic or extrahepatic biliary ductal dilatation. Common bile duct measures 0.2 cm in diameter. OTHER: No other significant findings. THIS IS AN ELECTRONICALLY VERIFIED FINAL REPORT 11/09/2024 1:54 PM - Electronically signed by Sparkle Leblanc M.D. FT: FT Report ID: [id number] Reading Location: [id number] Procedure Note Sparkle Zelaya MD - 11/09/2024 EXAM DESCRIPTION: US ABDOMEN LIMITED, LEVEL 1 - SINGLE ORGAN OR SOFT TISSUE REASON FOR STUDY: abdominal pain TECHNIQUE: Ultrasound of the right upper quadrant of the abdomen was performed with grayscale and color doppler. COMPARISON: CT abdomen pelvis 11/09/2024 FINDINGS: PANCREAS: Visualized portions of the pancreas are within normal limits. Portions of the pancreatic body and tail are obscured due to bowel gas. LIVER: The liver appears normal in echotexture and echogenicity. No focal lesion identified. The main portal vein is patent with antegrade flow. GALLBLADDER: The gallbladder is filled with biliary sludge. Borderline bladder wall thickening measuring 3 mm. No pericholecystic fluid. No positive sonographic Whittier sign reported. BILIARY: There is no intrahepatic or extrahepatic biliary ductal dilatation. Common bile duct measures 0.2 cm in diameter. OTHER: No other significant findings. THIS IS AN ELECTRONICALLY VERIFIED FINAL REPORT 11/09/2024 1:54 PM - Electronically signed by Sparkle Leblanc M.D. FT: FT Report ID: [id number] Reading Location: [place] [address] IMPRESSION: Biliary sludge and borderline gallbladder wall thickening. No pericholecystic fluid or positive sonographic Fernando's sign. Findings are equivocal for acute cholecystitis. If there is persistent clinical concern, HIDA scan may be performed. Mike Parra MD [facility] [place] ORDERABLES Fin al Result * (ABNORMAL) Renal Function Panel (11/09/2024 4:23 AM CDT) SODIUM 138 136 - 145 mmol/L 11/09/2024 7:21 AM CDT [facility] POTASSIUM 3.3(L) 3.5 - 5.1 mmol/L 11/09/2024 7:21 AM CDT [facility] CHLORIDE 107 98 - 107 mmol/L 11/09/2024 7:21 AM CDT [facility] CO2, VENOUS 20(L) 22 - 30 mmol/L 11/09/2024 7:21 AM CDT [facility] ANION GAP 14.3 <18.0 mmol/L 11/09/2024 7:21 AM CDT [facility] GLUCOSE 85 70 - 99 mg/dL 11/09/2024 7:21 AM CDT [facility] BUN 37(H) 5 - 18 mg/dL 11/09/2024 7:21 AM CDT [facility] CREATININE, BLOOD 2.43(H) 0.60 - 1.00 mg/dL 11/09/2024 7:21 AM CDT [facility] BUN/CREATININE RATIO 15 12 - 20 ratio 11/09/2024 7:21 AM CDT [facility] ALBUMIN 3.0(L) 3.5 - 5.0 g/dL 11/09/2024 7:21 AM CDT [facility] CALCIUM 8.3(L) 8.7 - 10.5 mg/dL 11/09/2024 7:21 AM CDT [facility] PHOSPHORUS 4.4 2.5 - 4.5 mg/dL 11/09/2024 7:21 AM CDT [facility] GFR, ESTIMATED 24(L) >=60 11/09/2024 7:21 AM CDT [facility] Comment: Creatinine Clearance is the preferred criteria for selecting drug dose adjustments in renally impaired patients. The GFR is provided as additional pertinent clinical information. GFR is reported in mL/min/1.73 sq m. Calculation based on the Chronic Kidney Disease Epidemiology Collaboration (CKD- EPI) equation refit without adjustment for race. GFR, EST. 26(L) >=60 025 7:21 AM CDT [facility] GFR, EST. NONAFRICAN 21(L) >=60 11/09/2024 7:21 AM CDT [facility] Blood Venipuncture / Unknown 11/09/2024 4:23 AM CDT 11/09/2024 5:57 AM CDT us Gia Walton POLO COACH, ACTING PROFESSOR CHEMISTRY ORDERABLES Belia l Result [facility] [address] [place] [address] * Magnesium (Mg) (11/09/2024 4:23 AM CDT) Only the most recent of2 resultswithin the time period is included. MAGNESIUM 2.6 1.6 - 2.6 mg/dL 11/09/2024 7:21 AM CDT [facility] Blood Venipuncture / Unknown 11/09/2024 4:23 AM CDT 11/09/2024 5:57 AM CDT us Gia Walton POLO COACH, ACTING PROFESSOR CHEMISTRY ORDERABLES Belia l Result [facility] [address] [place] [address] * CT RENAL STONE STUDY (ABDOMEN AND PELVIS W/O CONTRAST) (11/09/2024 12:43 AM CDT) Anatomical Region Laterality Modality Abdomen N/A Computed Tomogra phy 11/09/2024 1:0 0 AM CDT Impressions 11/09/2024 1:02 AM CDT IMPRESSION: No acute intra-abdominal or pelvic abnormality seen. Daniel catheter and rectal tube in place. Tiny fat containing periumbilical hernia. Narrative 11/09/2024 1:02 AM CDT EXAM DESCRIPTION: CT RENAL STONE STUDY (ABDOMEN AND PELVIS W/O CONTRAST) REASON FOR STUDY: c/o LLQ abdominal pain, N/V today. Pt reports not being able to urinate for a long while . Pt septic possible urinary source and possible ileus. HX: Urinary retention, Appendectomy, Endometrial ablation TECHNIQUE: CT scan of the abdomen and pelvis performed without intravenous and without oral contrast using helical scanning technique. Reconstructed coronal and sagittal MPR images reviewed. All images stored on PACS. Automated exposure control was used as a dose optimization technique for this examination. COMPARISON: None. FINDINGS: The sensitivity for detection of visceral lesions is diminished without the use of intravenous contrast. LOWER CHEST: The lung bases are clear. LIVER: The liver is normal in attenuation without focal lesion. GALLBLADDER: No stones identified. Normal wall. No evidence of pericholecystic fluid. BILE DUCTS: No intrahepatic or extrahepatic ductal dilatation. PANCREAS: Normal. SPLEEN: Normal size. No focal lesions. ADRENALS: Normal. KIDNEYS/URINARY TRACT: No identified significant cystic or solid masses. No visualized stones. No hydronephrosis or hydroureter. Daniel catheter is seen in place with complete collapse of the bladder. VASCULATURE: No acute abnormality seen. No abdominal aortic aneurysm. GI: The stomach appears normal. There is no significant small bowel dilation or visible thickening. A rectal tube is seen in place. Colon is otherwise unremarkable. The patient is status post appendectomy. PERITONEUM/MESENTERY: No ascites or free air. There is a tiny fat containing periumbilical hernia. LYMPH NODES: There are no enlarged lymph nodes seen by CT size criteria. REPRODUCTIVE: Uterus and adnexae are unremarkable. MUSCULOSKELETAL: No significant abnormality. OTHER: No other abnormality. THIS IS AN ELECTRONICALLY VERIFIED FINAL REPORT 11/09/2024 1:00 AM - Electronically signed by Liv Lauren M.D. SN: SN Report ID: [id number] Reading Location: [id number] Procedure Note Liv Lauren MD - 11/09/2024 EXAM DESCRIPTION: CT RENAL STONE STUDY (ABDOMEN AND PELVIS W/O CONTRAST) REASON FOR STUDY: c/o LLQ abdominal pain, N/V today. Pt reports not being able to urinate for a long while . Pt septic possible urinary source and possible ileus. HX: Urinary retention, Appendectomy, Endometrial ablation TECHNIQUE: CT scan of the abdomen and pelvis performed without intravenous and without oral contrast using helical scanning technique. Reconstructed coronal and sagittal MPR images reviewed. All images stored on PACS. Automated exposure control was used as a dose optimization technique for this examination. COMPARISON: None. FINDINGS: The sensitivity for detection of visceral lesions is diminished without the use of intravenous contrast. LOWER CHEST: The lung bases are clear. LIVER: The liver is normal in attenuation without focal lesion. GALLBLADDER: No stones identified. Normal wall. No evidence of pericholecystic fluid. BILE DUCTS: No intrahepatic or extrahepatic ductal dilatation. PANCREAS: Normal. SPLEEN: Normal size. No focal lesions. ADRENALS: Normal. KIDNEYS/URINARY TRACT: No identified significant cystic or solid masses. No visualized stones. No hydronephrosis or hydroureter. Daniel catheter is seen in place with complete collapse of the bladder. VASCULATURE: No acute abnormality seen. No abdominal aortic aneurysm. GI: The stomach appears normal. There is no significant small bowel dilation or visible thickening. A rectal tube is seen in place. Colon is otherwise unremarkable. The patient is status post appendectomy. PERITONEUM/MESENTERY: No ascites or free air. There is a tiny fat containing periumbilical hernia. LYMPH NODES: There are no enlarged lymph nodes seen by CT size criteria. REPRODUCTIVE: Uterus and adnexae are unremarkable. MUSCULOSKELETAL: No significant abnormality. OTHER: No other abnormality. THIS IS AN ELECTRONICALLY VERIFIED FINAL REPORT 11/09/2024 1:00 AM - Electronically signed by Liv Lauren M.D. SN: Report ID: [id number] Reading Location: [place] [id number] IMPRESSION: No acute intra-abdominal or pelvic abnormality seen. Daniel catheter and rectal tube in place. Tiny fat containing periumbilical hernia. Gia Walton POLO COACH, ACTING PROFESSOR IMG CT ORDERABLES Final R esult * CONSULT - OTHER (11/09/2024 12:00 AM CDT) Only the most recent of4 resultswithin the time period is included. 11/09/2024 us Provider Scan GENERIC SCAN ORDERS CONSULT Belia back Result SCAN * (ABNORMAL) C. DIFF BY PCR (11/08/2024 11:25 PM CDT) C DIFF TOXIN DNA BY PCR Positive(A ) Negative, Invalid 11/09/2024 1:37 AM CDT [facility] Comment:Please see Reflex C. diff Quik Chek Complete order results Other STOOL SPECIMEN / Unknown Non-Phlebotomy Collection / Unknown 11/08/2024 11:25 PM CDT 11/08/2024 11:49 PM CDT Gia Walton APRN, CNP MICROBIOLOGY - GENERAL OR DERABLES Final Result [facility] [address] [place] [address] * REFLEX C DIFF QUIK CHEK COMPLETE (11/08/2024 11:25 PM CDT) TOXIN A/B Negative Negative, INVALID, Not Applicable 11/09/2024 1:37 AM CDT [facility] Comment:These results are mullen ggestive of C. difficile colonization and may not reflect C. difficile infection requiring treatment. The significance of these results must be interpreted in the context of the patient's clinical scenario. Other STOOL SPECIMEN / Unknown Non-Phlebotomy Collection / Unknown 11/08/2024 11:25 PM CDT 11/08/2024 11:49 PM CDT Gia Walton APRN, CNP MICROBIOLOGY - GENERAL OR DERABLES Final Result Performing Organization Address City/[facility]/ZIP Co de Phone Number [facility] [address] [place] [address] * Culture, Stool (11/08/2024 11:25 PM CDT) [facility] CULTURE RESULTS NEGATIVE FOR CAMPYLOBACTER ANTIGEN 2024 3:41 PM CDT [facility] CULTURE RESULTS SHIGA TOXIN 1 AND SHIGA TOXIN 2 NOT DETECTED 2024 3:41 PM CDT [facility] CULTURE RESULTS Heavy Mixed genesis 2024 3:41 PM CDT [facility] Culture STOOL SPECIMEN / Unknown Non-Phlebotomy Collection / Unknown 11/08/2024 11:25 PM CDT 11/08/2024 11:49 PM CDT Narrative [facility] - 2024 3:41 PM CDT Unless stated above as an isolate, no Salmonella, Shigella, E Coli O157, Aeromonas, or Pleisiomonas species isolated Gia Walton APRN, CNP MICROBIOLOGY - GENERAL OR DERABLES Final Result Performing Organization Address [facility] de Phone Number [facility] [address] [place] [address], [place] * Ur Sodium (Na) Random (11/08/2024 11:24 PM CDT) SODIUM, RANDOM URINE 42 mmol/L 11/09/2024 2:45 PM CDT [facility] Comment:No reference range h as been established. Consider Clinical Correlation. Urine Non-Phlebotomy Collection / Unknown 11/08/2024 11:24 PM CDT 11/08/2024 11:48 PM CDT Gia Walton APRN, CNP URINE ORDERABLES Final Re sult Performing Organization Address [facility] de Phone Number [facility] [address] [place] [address], [place] * Ur Potassium (K) Random (11/08/2024 11:24 PM CDT) UR POTASSIUM, RANDOM 21 mmol/L 11/09/2024 2:45 PM CDT [facility] Comment:No reference range h as been established. Consider Clinical Correlation. Urine Non-Phlebotomy Collection / Unknown 11/08/2024 11:24 PM CDT 11/08/2024 11:48 PM CDT Gia Walton APRN, CNP URINE ORDERABLES Final Re sult Performing Organization Address [facility] Co de Phone Number [facility] [address] [place] [address], [place] * Ur Osmolality (11/08/2024 11:24 PM CDT) OSMOLALITY, URINE 271 50 - 1,400 mOsm/kg 11/09/2024 3:27 PM CDT [facility] Urine Non-Phlebotomy Collection / Unknown 11/08/2024 11:24 PM CDT 11/08/2024 11:48 PM CDT us Gia Walton APRN, CNP URINE ORDERABLES Final Re sult Performing Organization Address [facility] Co de Phone Number [facility] [address] [place] [address], [place] * Ur Chloride (Cl) Random (11/08/2024 11:24 PM CDT) CHLORIDE, RANDOM URINE 29 mmol/L 11/09/2024 2:45 PM CDT [facility] Comment:No reference range h as been established. Consider Clinical Correlation. Urine Non-Phlebotomy Collection / Unknown 11/08/2024 11:24 PM CDT 11/08/2024 11:48 PM CDT us Gia Walton APRN, CNP URINE ORDERABLES Final Re sult Performing Organization Address [facility] de Phone Number [facility] [address] [place] [address], [place] * (ABNORMAL) IRON,TRANSFERN,CALC.TIBC,%SAT (11/08/2024 10:05 PM CDT) IRON 9(L) 25 - 156 mcg/dL 11/08/2024 11:59 PM CDT [facility] TRANSFERRIN 125(L) 180 - 382 mg/dL 11/08/2024 11:59 PM CDT [facility] TIBC, CALCULATED 156(L) 265 - 497 mcg/dL 11/08/2024 11:59 PM CDT [facility] % SATURATION * 6(L) 15 - 62 % 11/08/2024 11:59 PM CDT [facility] Blood Venipuncture / Unknown 11/08/2024 10:05 PM CDT 11/08/2024 10:14 PM CDT us Gia Walton APRN, CNP CHEMISTRY ORDERABLES Belia l Result Performing Organization Address [facility] Co de Phone Number [facility] [address] [place] [address] * Vitamin B12 (11/08/2024 10:05 PM CDT) VITAMIN B12 238 213 - 816 pg/mL 11/09/2024 12:29 AM CDT [facility] Blood Venipuncture / Unknown 11/08/2024 10:05 PM CDT 11/08/2024 10:14 PM CDT us Gia Walton APRN, CNP CHEMISTRY ORDERABLES Belia l Result Performing Organization Address City/[facility] Co de Phone Number [facility] [address] [place] [address] * Osmolality Serum (11/08/2024 10:05 PM CDT) OSMOLALITY 295 275 - 295 mOsm/kg 11/09/2024 2:51 PM CDT [facility] Blood Venipuncture / Unknown 11/08/2024 10:05 PM CDT 11/08/2024 10:14 PM CDT Narrative [facility] - 11/09/2024 2:51 PM CDT Result is an averaged value us Gia Walton APRN, CNP CHEMISTRY ORDERABLES Belia l Result Performing Organization Address City/[facility]/ZIP Co de Phone Number [facility] [address] [place] [address], [place] * Lactic Acid (Lactate) (11/08/2024 10:05 PM CDT) LACTIC ACID 0.9 0.7 - 2.0 mmol/L 11/08/2024 11:18 PM CDT [facility] Blood Venipuncture / Unknown 11/08/2024 10:05 PM CDT 11/08/2024 10:13 PM CDT us Gia Walton APRN, ACTING PROFESSOR CHEMISTRY ORDERABLES Belia l Result Performing Organization Address City/[facility]/ZIP Co de Phone Number [facility] [address] [place] [address] * FOLIC ACID (FOLATE) (11/08/2024 10:05 PM CDT) FOLATE 11.1 7.0 - 31.4 ng/mL 11/09/2024 12:29 AM CDT [facility] Blood Venipuncture / Unknown 11/08/2024 10:05 PM CDT 11/08/2024 10:14 PM CDT us Gia Walton APRN, ACTING PROFESSOR CHEMISTRY ORDERABLES Belia l Result Performing Organization Address [facility] Co de Phone Number [facility] [address] [place] [address] * (ABNORMAL) Ferritin (11/08/2024 10:05 PM CDT) FERRITIN 815(H) 5 - 204 ng/mL 11/09/2024 12:29 AM CDT [facility] Blood Venipuncture / Unknown 11/08/2024 10:05 PM CDT 11/08/2024 10:14 PM CDT us Gia Walton APRN, ACTING PROFESSOR CHEMISTRY ORDERABLES Belia l Result Performing Organization Address City/[facility]/ZIP Co de Phone Number [facility] [address] [place] [address] * US - ABDOMEN/PELVIS (10/21/2024 12:00 AM CDT) Only the most recent of3 resultswithin the time period is included. 10/21/2024 us Provider Scan IMG US ORDERABLES Final Result SCAN * CT - ABDOMEN/PELVIS (10/20/2024 12:00 AM CDT) 10/20/2024 us Provider Scan IMG CT ORDERABLES Final Result SCAN * CARDIOLOGY CONSULT (10/19/2024 12:00 AM CDT) Only the most recent of2 resultswithin the time period is included. 10/19/2024 us Provider Scan GENERIC SCAN ORDERS CONSULT Belia l Result SCAN * FAMILY MEDICINE CONSULT (10/18/2024 12:00 AM CDT) 10/18/2024 us Provider Scan GENERIC SCAN ORDERS CONSULT Belia l Result SCAN from Last 3 Months Additional Health Concerns Infection Onset Date Last Indicated C. 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 PRE-ARREST: Use entire range of life support measures to stabilize the patient. Care Teams Delinquent Notice Machine Operator Relationship Specialty Start Date End Date Joellen Shepherd, POLO COACH, ACTING PROFESSOR [address] [place] [address] PCP - General Advanced Practice Nurse 11/09/24
--- OUTSIDE RECORDS SUMMARY | 2024-11-17 15:06 | XMS_ITS | Clinical Summary ---
Author Organization [facility] Address [address] [place] [id number] Care Team Providers Care Supervisor Tunnel Heading Name Role Phone Non-Staff, Provider Primary Care Provider Unavai lable Allergies Active Allergy Reactions Criticality Noted Date Comments Levofloxacin Unknown 11/08/2024 Oxycodone Unknown 11/08/2024 Medications No known medications Encounters Date Type Department Care Team Description 11/08/2024 10:25 AM CDT - 11/08/2024 6:46 PM CDT [facility] [address] [place] [address] [place] [address] Sully Hatfield MD Generalized Weakness Discharge Disposition: Transfer to Acute Care Hospital 11/08/2024 Travel from Last 3 Months Social History Tobacco Use Types Packs/Day Years Used Date Smoking Tobacco: Every Day Cigarettes Smokeless Tobacco: Never Tobacco Cessation:Ready to Q uit: Not Asked; Counseling Given: Not Answered Alcohol Use Standard Drinks/Week Comments Not Currently 0 (1 standard drink = 0.6 oz pure alcohol) pt states quit drinking approx one month ago Comments No Sex and Gender Information Value Date Recorded Sex Assigned at Female 11/08/2024 10:21 AM CDT Legal Sex Female 1:42 AM CDT Gender Identity Not on file Sexual Orientation Not on file Last Filed Vital Signs Vital Sign Reading Time Taken Comments Blood Pressure 168/94 11/08/2024 5:30 PM CDT Pulse 105 11/08/2024 5:30 PM CDT Temperature 36.8 C (98.2 F) 11/08/2024 5:00 PM CDT Respiratory Rate 13 11/08/2024 5:30 PM CDT Oxygen Saturation 97% 11/08/2024 5:30 PM CDT Inhaled Oxygen Concentration - - Weight 59 kg (130 lb) 11/08/2024 10:25 AM CDT Height 165.1 cm (5' 5 ) 11/08/2024 10:25 AM CDT Body Mass Index 21.63 11/08/2024 10:25 AM CDT Plan of Treatment Health Maintenance Due Date Last Done Comments Cervical Cancer Screening Pa p Smear (Age 30 to 64) Every 3 Years 1975 Colorectal Cancer Screening Colonoscopy (10 Years) 1975 Annual Physical 11/09/1978 Pneumococcal Vaccine: Pediat rics (0 to 5 Years) and At-Risk Patients (6 to 64 Years) (1 of 2 - PCV) 11/09/1981 Hepatitis C 11/09/1993 DTaP, Tdap and Td Vaccines ( 1 - Tdap) 11/09/1994 Hepatitis B Vaccines (1 of 3 - 19+ 3-dose series) 11/09/1994 Cervical Cancer Screening Pa p with HPV Testing (Age 30 to 64) Every 5 Years 11/09/2005 Cervical Cancer Screening with HPV 11/09/2005 Mammogram Screening 2015 COVID-19 Vaccine (2023-2 5 season) 2024 Meningococcal B Vaccine Aged Out No l onger eligible based on patient's age to complete this topic Meningococcal Vaccine Aged Out No benson marguerite eligible based on patient's age to complete this topic RSV Immunizations Under 20 Months Aged Out No longer eligible based on patient's age to complete this topic Procedures Procedure Name Priority Date/Time Associated Diagnosis Comments CLOSTRIDIUM DIFFICILE STAT 11/08/2024 5:17 PM CDT GI PANEL PCR - STOOL STAT 11/08/2024 5:[address] ABD+PEL WO CON STAT 11/08/2024 12: [address] HEAD WO CON STAT 11/08/2024 12:31 PM CDT ECG 12-LEAD Routine 11/08/2024 12:09 PM CDT CULTURE, BACTERIA, BLOOD STAT 11/08/2024 12:03 PM CDT CK (CPK) STAT 11/08/2024 11:50 AM CDT TROPONIN, QUANT STAT 11/08/2024 11:50 AM CDT LACTIC ACID W REFLEX (SEPSIS) STAT 11/08/2024 11:50 AM CDT CULTURE, BACTERIA, BLOOD STAT 11/08/2024 11:49 AM CDT URINE BACTERIA CULTURE STAT 11:21 AM CDT DRUG SCREEN RAPID STAT 11/08/2024 11: 21 AM CDT HC URINALYSIS AUTO W/MICRO STAT 11/08/2024 11:21 AM CDT HCG QUANT (SERUM)-CHORIONIC GONADOTROPIN STAT 11/08/2024 10:53 AM CDT ETHANOL STAT 11/08/2024 10:53 AM CDT MAGNESIUM STAT 11/08/2024 10:53 AM CDT LIPASE STAT 11/08/2024 10:53 AM CDT COMPREHENSIVE METABOLIC PANEL STAT 11/08/2024 10:53 AM CDT CBC W/DIFF AUTOMATED STAT 11/08/2024 10:53 AM CDT from Last 3 Months Results * GI PANEL PCR - STOOL (11/08/2024 5:17 PM CDT) CAMPYLOBACTER PCR (STOOL) NOT DETECTED NOT DETECTED 11/09/2024 4:56 PM CDT [facility] PLESIOMONAS SHIGELLOIDES PCR (STOOL) NOT DETECTED NOT DETECTED 11/09/2024 4:56 PM CDT [facility] SALMONELLA PCR (STOOL) NOT DETECTED NOT DETECTED 11/09/2024 4:56 PM CDT [facility] VIBRIO PCR (STOOL) NOT DETECTED NOT DETECTED 11/09/2024 4:56 PM CDT [facility] VIBRIO CHOLERAE PCR (STOOL) NOT DETECTED NOT DETECTED 11/09/2024 4:56 PM CDT [facility] YERSINIA ENTEROCOLITICA PCR (STOOL) NOT DETECTED NOT DETECTED 11/09/2024 4:56 PM CDT [facility] ENTEROAGGREGATIVE ECOLI PCR (STOOL) NOT DETECTED NOT DETECTED 11/09/2024 4:56 PM CDT [facility] ENTEROPATHOGENIC ECOLI PCR (STOOL) NOT DETECTED NOT DETECTED 11/09/2024 4:56 PM CDT [facility] ENTEROTOXIGENIC ECOLI PCR (STOOL) NOT DETECTED NOT DETECTED 11/09/2024 4:56 PM CDT [facility] SHIGA LIKE TOXIN ECOLI PCR (STOOL) NOT DETECTED NOT DETECTED 11/09/2024 4:56 PM CDT [facility] SHIG/ENTEROINVASIVE ECOLI PCR (STOOL) NOT DETECTED NOT DETECTED 11/09/2024 4:56 PM CDT [facility] CRYPTOSPORIDIUM PCR (STOOL) NOT DETECTED NOT DETECTED 11/09/2024 4:56 PM CDT [facility] CYCLOSPORA CAYETANENSIS PCR (STOOL) NOT DETECTED NOT DETECTED 11/09/2024 4:56 PM CDT [facility] ENTAMOEBA HISTOLYTICA PCR (STOOL) NOT DETECTED NOT DETECTED 11/09/2024 4:56 PM CDT [facility] GIARDIA LAMBLIA PCR (STOOL) NOT DETECTED NOT DETECTED 11/09/2024 4:56 PM CDT [facility] ADENOVIRUS F40/41 PCR (STOOL) NOT DETECTED NOT DETECTED 11/09/2024 4:56 PM CDT [facility] ASTROVIRUS PCR (STOOL) NOT DETECTED NOT DETECTED 11/09/2024 4:56 PM CDT [facility] NOROVIRUS GI/GII PCR (STOOL) NOT DETECTED NOT DETECTED 11/09/2024 4:56 PM CDT [facility] ROTAVIRUS A PCR (STOOL) NOT DETECTED NOT DETECTED 11/09/2024 4:56 PM CDT [facility] SAPOVIRUS PCR (STOOL) NOT DETECTED NOT DETECTED 11/09/2024 4:56 PM CDT [facility] STOOL SPECIMEN / Unknown 11/08/2024 5:17 PM CDT Conrad Moody MD MICROBIOLOGY - GENERAL ORDERABLE S Final Result [facility] [address] [place] [address], [place] [phone] * (ABNORMAL) CLOSTRIDIUM DIFFICILE (11/08/2024 5:17 PM CDT) GDH ANTIGEN POSITIVE(A) NEGATIVE 11/08/2024 6:20 PM CDT [facility] Comment: CALLED TO [place] [facility] 4.2.25 AT 0810 BY READ BACK AND VERIFIED C DIFFICILE TOXIN A&B (STOOL) POSITIVE(A) NEGATIVE 11/08/2024 6:32 PM CDT [facility] Comment: CALLED TO [place] [facility] 1.2.25 AT 0810 BY READ BACK AND VERIFIED COMMENT GDH POSITIVE/TOXI N A & B POSITIVE: POSITIVE FOR TOXIGENIC C. DIFFICILE. (A) GDH NEGATIVE/TOXI N A & B NEGATIVE: NEGATIVE FOR TOXIGENIC C. 11/08/2024 6:32 PM CDT [facility] Comment: CALLED TO ER CALLED PCP 4.1.25 STOOL STOOL SPECIMEN / Unknown 11/08/2024 5:17 PM CDT us Conrad Moody MD BODY FLUIDS AND STOOLS ORDERABLE S Final Result [facility] [address] [place] [address], [place] [phone] * CT HEAD WO CON (11/08/2024 12:31 PM CDT) Anatomical Region Laterality Modality Head Computed Tomogra phy 11/08/2024 12:4 6 PM CDT Impressions 11/08/2024 12:47 PM CDT IMPRESSION: No CT evidence of an acute intracranial abnormality. Ordered By: CONRAD MOODY Interpreted By: Arnaldo Cardoso MD, 11/08/2024 12:46 PM Narrative 11/08/2024 12:47 PM CDT [address] [place] [address] Examination: CT HEAD WO CON, 11/08/2024 12:31 PM. Technique: Computed tomographic images of the head were obtained without intravenous contrast. Additional coronal and sagittal reformatted images were generated at a separate workstation. A dose lowering technique was used for this procedure, which may include, but is not limited to, dose reduction technique, automated exposure control, the use of iterative reconstruction, and ALARA (As Low As Reasonably Achievable) / Image Gently techniques. Clinical history: weakness Comparison: None available Findings: . No acute intracranial hemorrhage. There is no extra-axial fluid collection. Preserved weiss-white matter differentiation. The ventricles are normal in size. The basal cisterns appear normal. The orbital contents appear normal. The nasal sinuses and mastoid air cells are well aerated. There is no acute fracture nor destructive process of the visualized osseous structures. Procedure Note Arnaldo Cardoso MD - 11/08/[address] [place] [address] Examination: CT HEAD WO CON, 11/08/2024 12:31 PM. Technique: Computed tomographic images of the head were obtained withoutintravenous contrast. Additional coronal and sagittal reformatted imageswere generated at a separate workstation. A dose lowering technique wasused for this procedure, which may include, but is not limited to, dosereduction technique, automated exposure control, the use of iterativereconstruction, and ALARA (As Low As Reasonably Achievable) / Image Gentlytechniques. Clinical history: weakness Comparison: None available Findings: . No acute intracranial hemorrhage. There is no extra-axial fluidcollection. Preserved weiss-white matter differentiation. The ventriclesare normal in size. The basal cisterns appear normal. The orbital contentsappear normal. The nasal sinuses and mastoid air cells are well aerated.There is no acute fracture nor destructive process of the visualizedosseous structures. IMPRESSION: No CT evidence of an acute intracranial abnormality. Ordered By: CONRAD MOOYD Interpreted By: Arnaldo Cardoso MD, 11/08/2024 12:46 PM us Conrad Moody MD CT Final Result * CT ABD+PEL WO CON (11/08/2024 12:31 PM CDT) Anatomical Region Laterality Modality Abdomen Computed Tomogra phy 11/08/2024 12:5 1 PM CDT Impressions 11/08/2024 1:01 PM CDT IMPRESSION: 1. Distended urinary bladder. Tiny amount of gas in the urinary bladder is consistent with recent catheterization. 2. Possible ileus. Clinical and imaging follow-up as appropriate is advised. 3. Mild hepatomegaly. Ordered By: CONRAD MOODY Interpreted By: Ney Arevalo MD, 11/08/2024 12:51 PM Narrative 11/08/2024 1:01 PM CDT [place] [id number] [facility] [place] [address] Examination: CT of the abdomen and pelvis without contrast. Exam time: 1231 hours. Clinical history: Abdominal pain. Nausea and vomiting. Leukocytosis. Normal serum lipase. Abnormal urinalysis via straight catheter.. Renal insufficiency. Comparison: None. Technique: Spiral scanning was performed through the abdomen and pelvis without contrast. Sagittal and coronal reconstructions were performed from the data set. Intravenous contrast was not administered due to a diminished GFR. A dose lowering technique was used for this procedure, which may include, but is not limited to, dose reduction techniques, automated exposure control, the use of iterative reconstruction and ALARA/Image Gently techniques. Findings: There is minor dependent subsegmental atelectasis. Allowing for respiratory motion, the lung bases are otherwise clear. No pleural effusions are seen. There is mild hepatomegaly (approximately 20 cm). The liver, spleen, gallbladder, pancreas and adrenal glands are otherwise unremarkable for the noncontrast technique. The urinary bladder is massively distended measuring approximately 19 cm in craniocaudal extent. Small amount of gas in the urinary bladder is consistent with the recent catheterization. There is mild caliectasis and ureterectasis consistent with back pressure phenomenon. The kidneys are otherwise unremarkable for technique. The uterus appears unremarkable for technique. A normal-appearing appendix is visible. There is fluid throughout the GI tract without distention possibly reflecting ileus. There is no ascites, localized fluid collection, free air or lymphadenopathy. The caliber of the abdominal aorta is normal. Procedure Note Ney Arevalo MD - 11/08/[address] [place] [address] Examination: CT of the abdomen and pelvis without contrast. Exam time: 1231 hours. Clinical history: Abdominal pain. Nausea and vomiting. Leukocytosis.Normal serum lipase. Abnormal urinalysis via straight catheter.. Renalinsufficiency. Comparison: None. Technique: Spiral scanning was performed through the abdomen and pelviswithout contrast. Sagittal and coronal reconstructions were performed fromthe data set. Intravenous contrast was not administered due to adiminished GFR. A dose lowering technique was used for this procedure,which may include, but is not limited to, dose reduction techniques,automated exposure control, the use of iterative reconstruction andALARA/Image Gently techniques. Findings: There is minor dependent subsegmental atelectasis. Allowing forrespiratory motion, the lung bases are otherwise clear. No pleuraleffusions are seen. There is mild hepatomegaly (approximately 20 cm). Theliver, spleen, gallbladder, pancreas and adrenal glands are otherwiseunremarkable for the noncontrast technique. The urinary bladder ismassively distended measuring approximately 19 cm in craniocaudal extent.Small amount of gas in the urinary bladder is consistent with the recentcatheterization. There is mild caliectasis and ureterectasis consistentwith back pressure phenomenon. The kidneys are otherwise unremarkable fortechnique. The uterus appears unremarkable for technique. Anormal-appearing appendix is visible. There is fluid throughout the GItract without distention possibly reflecting ileus. There is no ascites,localized fluid collection, free air or lymphadenopathy. The caliber ofthe abdominal aorta is normal. IMPRESSION: 1. Distended urinary bladder. Tiny amount of gas in the urinary bladder isconsistent with recent catheterization. 2. Possible ileus. Clinical and imaging follow-up as appropriate isadvised. 3. Mild hepatomegaly. Ordered By: CONRAD MOODY Interpreted By: Ney Arevalo MD, 11/08/2024 12:51 PM us Conrad Moody MD CT Final Result * ECG 12 lead (11/08/2024 12:09 PM CDT) 11/08/2024 12:0 9 PM CDT Narrative [facility] - 11/09/2024 3:29 PM [address]T [address] 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1975 Requested By: MIRENA MOODY Order Number: [id number] Reading MD: Jaspreet Steele Measurements Intervals [place] Rate: 113 P: 61 KS: 112 QRS: 62 QRSD: 90 T: 215 QT: 325 QTc: 446 Interpretive Statements SINUS TACHYCARDIA WITH SHORT [place] INTERVAL LEFT VENTRICULAR HYPERTROPHY AND ST-T CHANGE nondiagnostic inferior/lateral q-waves us Conrad Moody MD ECG ORDERABLES Final Result Performing Organization Address City/[facility] Co de Phone Number [facility] * CULTURE, BACTERIA, BLOOD (11/08/2024 12:03 PM CDT) Only the most recent of2 resultswithin the time period is included. SPEC DESCRIPTION BLOOD 11/09/19 6:13 PM CDT [facility] SPECIAL REQUESTS BLOOD-AERO BIC BOTTLE ONLY 11/08/2024 6:13 PM CDT [facility] CULTURE RESULT NO GROWTH 5 DAYS 11/13/2024 6:20 PM CDT [facility] BLOOD SPECIMEN OBTAINED FOR BLOOD CULTURE / Unknown 11/08/2024 12:03 PM CDT 11/08/2024 12:05 PM CDT us Conrad Moody MD MICROBIOLOGY - GENERAL ORDERABLE S Final Result Performing Organization Address [facility] Co de Phone Number [facility] [address] [place] [address], [phone] * LACTIC ACID W REFLEX (SEPSIS) (11/08/2024 11:50 AM CDT) LACTIC ACID VENOUS 1.7 0.4 - 2.0 MMOL/L 11/08/2024 12:17 PM CDT [facility] 11/08/2024 11:5 0 AM CDT us Conrad Moody MD LABORATORY Final Result Performing Organization Address City/[facility]/ZIP Co de Phone Number [facility] [address] [place] [address], * TROPONIN, QUANT (11/08/2024 11:50 AM CDT) TROPONIN I HIGH SENSITIVITY 26 0 - 51 ng/L 11/08/2024 12:17 PM CDT [facility] 11/08/2024 11:5 0 AM CDT us Conrad Moody MD LABORATORY Final Result [facility] [address] [place] [phone], * CK (CPK) (11/08/2024 11:50 AM CDT) CPK 96 26 - 192 U/L 11/08/2024 12:17 PM CDT [facility] 11/08/2024 11:5 0 AM CDT us Conrad Moody MD LABORATORY Final Result Performing Organization Address City/[facility]/ZIP Co de Phone Number [facility] [address] [place] [phone], * (ABNORMAL) DRUG SCREEN RAPID (11/08/2024 11:21 AM CDT) CANNABINOIDS SCREEN (U) NEGATIVE NEGATIVE 11/08/2024 11:41 AM CDT [facility] PHENCYCLIDINE PCP (U) NEGATIVE NEGATIVE 11/08/2024 11:41 AM CDT [facility] COCAINE METABOLITES (U) NEGATIVE NEGATIVE 11/08/2024 11:41 AM CDT [facility] METHAMPHETAMINE SCREEN (U) POSITIVE(A) NEGATIVE 11/08/2024 11:41 AM CDT [facility] OPIATE SCREEN (U) NEGATIVE NEGATIVE 025 11:41 AM CDT [facility] AMPHETAMINE SCREEN (U) POSITIVE(A) NEGATIVE 11/08/2024 11:41 AM CDT [facility] BENZODIAZEPINES SCREEN (U) POSITIVE(A) NEGATIVE 11/08/2024 11:41 AM CDT [facility] TRICYCLIC ANTIDEPRESSANT SCREEN (U) NEGATIVE NEGATIVE 11/08/2024 11:41 AM CDT [facility] METHADONE (U) NEGATIVE NEGATIVE 11/08/2024 11:41 AM CDT [facility] BARBITURATES SCREEN (U) NEGATIVE NEGATIVE 11/08/2024 11:41 AM CDT [facility] OXYCODONE SCREEN (U) POSITIVE(A) NEGATIVE 11/08/2024 11:41 AM CDT [facility] URINE TOX COMMENT THIS TEST METHODOLOGY IS DESIGNED AND OFFERED A RAPID TURNAROUND, QUALITATIVE SCREENING PROCEDURE TO AID IN THE IMMEDIATE MEDICAL ASSESSMENT OF PATIENTS SUSPECTED OF SUBSTANCE ABUSE. 11/08/2024 11:20 AM CDT [facility] Comment: CLINICAL CONSIDERATION AND PROFESSIONAL JUDGMENT MUST BE APPLIED TO ANY DRUG OF ABUSE TEST RESULT, BOTH POSITIVE AND NEGATIVE. CONFIRMATORY QUANTITATIVE RESULTS ARE AVAILABLE THROUGH OUR REFERENCE LAB[facility]ATORY. URINE SPECIMEN / Unknown 11/08/2024 11:21 AM CDT Conrad Moody MD URINE ORDERABLES Final Result [facility] [address] [place] [address], * (ABNORMAL) URINALYSIS (11/08/2024 11:21 AM CDT) COLOR (U) YELLOW 11/08/2024 11:42 AM CDT [facility] TRANSPARENCY CLEAR 11/08/2024 11:42 AM CDT [facility] SPECIFIC GRAVITY (U) 1.025 1.000 - 1.025 11/08/2024 11:42 AM CDT [facility] U PH 8.5(H) 5.0 - 8.0 11/08/2024 11:42 AM CDT [facility] LEUKOCYTES (U) 2+(A) NEGATIVE 11/08/2024 11:42 AM CDT [facility] NITRITES NEGATIVE NEGATIVE 11/08/2024 11:42 AM CDT [facility] PROTEIN RANDOM (U) 3+(A) NEGATIVE 11/08/2024 11:42 AM CDT [facility] GLUCOSE (U) NEGATIVE NEGATIVE 11/08/2024 11:42 AM CDT [facility] KETONES MG/DL (U) NEGATIVE NEGATIVE 11/08/2024 11:42 AM CDT [facility] UROBILINOGEN 0.2 <1.0 EU/DL 11/08/2024 11:42 AM CDT [facility] BILIRUBIN (U) NEGATIVE NEGATIVE 11/08/2024 11:42 AM CDT [facility] BLOOD (U) 2+(A) NEGATIVE 11/08/2024 11:42 AM CDT [facility] WBC/HPF 10-20(A) 0 - 5 /HPF 11/08/2024 11:42 AM CDT [facility] RBC/HPF 10-20(A) 0 - 5 /HPF 11/08/2024 11:42 AM CDT [facility] EPI/LPF RARE /LPF 11/08/2024 11:42 AM CDT [facility] BACTERIA (U) 3+ /HPF 11/08/2024 11:42 AM CDT [facility] URINE SPECIMEN OBTAINED BY CLEAN CATCH PROCEDURE / Unknown 11/08/2024 11:21 AM CDT us Conrad Moody MD URINE ORDERABLES Final Result [facility] [address] [place] [address], * CULTURE URINE (11/08/2024 11:21 AM CDT) SPEC DESCRIPTION URINE CLEAN CATCH 11/08/2024 11:20 AM CDT [facility] SPECIAL REQUESTS NO SPECIAL REQUEST 11/08/2024 11:20 AM CDT [facility] CULTURE RESULT >25,000 TO 50,000 CFU/mL PSEUDOMONAS AERUGINOSA 2024 9:58 AM CDT [facility] URINE SPECIMEN OBTAINED BY CLEAN CATCH PROCEDURE / Unknown 11/08/2024 11:21 AM CDT 11/08/2024 11:25 AM CDT Narrative Organism Antibiotic Method Susceptibility Pseudomonas aeruginosa AMIKACIN MACHELLE (KB) Sensitive Pseudomonas aeruginosa CEFEPIME MACHELLE (KB) Sensitive Pseudomonas aeruginosa CEFTAZIDIME MACHELLE (KB) Sensitive Pseudomonas aeruginosa CIPROFLOXACIN MACHELLE (KB) Sensitive Pseudomonas aeruginosa LEVOFLOXACIN MACHELLE (KB) Sensitive Pseudomonas aeruginosa PIPRACIL/TAZO MACHELLE (KB) Sensitive Pseudomonas aeruginosa TOBRAMYCIN MACHELLE (KB) Sensitive Pseudomonas aeruginosa MEROPENEM MACHELLE (KB) Sensitive Pseudomonas aeruginosa AZTREONAM MACHELLE (KB) Sensitive us Conrad Moody MD MICROBIOLOGY - GENERAL ORDERABLE S Final Result [facility] [address] [place] [address], [phone] [facility] [address] [place] [address], * (ABNORMAL) COMPREHENSIVE METABOLIC PANEL (11/08/2024 10:53 AM CDT) SODIUM S/P/B 135(L) 136 - 145 MMOL/L 11/08/2024 11:35 AM CDT [facility] POTASSIUM S/P/B 4.3 3.5 - 5.1 MMOL/L 11/08/2024 11:35 AM CDT [facility] CHLORIDE S/P/B 99 98 - 107 MMOL/L 11/08/2024 11:35 AM CDT [facility] CO2 20.9(L) 21.0 - 32.0 MMOL/L 11/08/2024 11:35 AM CDT [facility] GLUCOSE 94 70 - 99 MG/DL 11/08/2024 11:35 AM CDT [facility] Comment: FASTING GLUCOSE 100 TO 125 MG/DL IS CONSISTENT WITH IMPAIRED FASTING GLUCOSE. FASTING GLUCOSE >125 MG/DL IS CONSISTENT WITH DIABETES. RANDOM GLUCOSE >200 MG/DL WITH HYPERGLYCEMIC SYMPTOMS IS CONSISTENT WITH DIABETES. PER ADA GUIDELINES BUN 39(H) 6 - 24 MG/DL 11/08/2024 11:[address] [facility] CREATININE S/P/B 3.52(H) 0.55 - 1.02 MG/DL 11/08/2024 11:[address] [facility] CALCIUM S/P/B 8.0(L) 8.4 - 10.5 MG/DL 11/08/2024 11:[address] [facility] BILIRUBIN TOTAL S/P/B 0.4 0.2 - 1.0 MG/DL 11/08/2024 11:[address] [facility] Comment: THIS ASSAY IS NOT RECOMMENDED FOR PATIENTS UNDERGOING TREATMENT WITH ELTROMBOPAG DUE TO THE POTENTIAL FOR FALSELY ELEVATED RESULTS. ALKALINE PHOSPHATASE S/P/B 88 39 - 100 U/L 11/08/2024 11:[address] [facility] AST 12(L) 15 - 37 U/L 11/08/2024 11:[address] [facility] ALT 15 14 - 59 U/L 11/08/2024 11:[address] [facility] TOTAL PROTEIN S/P/B 5.5(L) 6.4 - 8.2 G/DL 11/08/2024 11:[address] [facility] ALBUMIN S/P/B 2.0(L) 3.4 - 5.0 G/DL 11/08/2024 11:[address] [facility] ANION GAP 15.1(H) 5.0 - 15.0 MMOL/L 11/08/2024 11:[address] [facility] OSMOLALITY (CALC) 289 MOSM/KG 025 11:[address] [facility] Comment:REFERENCE RANGE NOT ESTABLISHED GFR ESTIMATE 15(L) >89 ML/MIN/1. 73 M2 11/08/2024 11:[address] [facility] GFR NOTES GFR REFERENCE S: 11/08/2024 11:[address] [facility] Comment: THE ESTIMATED GFR IS CALCULATED USING THE 2020 CKD-EPI EQUATION. THE FOLLOWING CATEGORIES FOR GRADING RENAL FUNCTION ARE RECOMMENDED BY THE INTERNATIONAL SOCIETY OF NEPHROLOGY (KDIGO 2012 CLINICAL PRACTICE GUIDELINE). G1,NORMAL OR HIGH: >89 ml/min/1.73 m2 G2,MILDLY DECREASED: 60-89 ml/min/1.73 m2 G3A,MILDLY TO MODERATELY DECREASED: 45-59 ml/min/1.73 m2 G3B,MODERATELY TO SEVERELY DECREASED: 30-44 ml/min/1.73 m2 G4,SEVERELY DECREASED: 15-29 ml/min/1.73 m2 G5,KIDNEY FAILURE: <15 ml/min/1.73 m2 11/08/2024 10:5 3 AM CDT us Conrad Moody MD LABORATORY Final Result Performing Organization Address [facility]/ZIP Co de Phone Number [facility] [address] [place] [address], * HCG QUANT (SERUM)-CHORIONIC GONADOTROPIN (11/08/2024 10:53 AM CDT) HCG QUANTITATIVE 1 0.0 - 6.0 MIU/ML 11/08/2024 11:35 AM CDT [facility] Comment:NON- FEMALE 0-6 11/08/2024 10:5 3 AM CDT us Conrad Moody MD LABORATORY Final Result Performing Organization Address City/[facility]/ZIP Co de Phone Number [facility] [address] [place] [address], * (ABNORMAL) CBC W/DIFF AUTOMATED (11/08/2024 10:53 AM CDT) WBC 20.30(H) 4.00 - 10.80 x10'3/uL 11/08/2024 11:05 AM CDT [facility] RBC 3.14(L) 4.10 - 5.40 x10'6/uL 11/08/2024 11:05 AM CDT [facility] HGB 9.8(L) 12.0 - 16.0 G/DL 11/08/2024 11:05 AM T [facility] HCT 29.3(L) 36.0 - 47.0 % 11/08/2024 11:05 AM T [facility] MCV 93.3 78.0 - 100.0 FL 11/08/2024 11:05 AM T [facility] MCH 31.2(H) 27.0 - 31.0 PG 11/08/2024 11:05 AM T [facility] MCHC 33.4 33.0 - 36.0 G/DL 11/08/2024 11:05 AM T [facility] RDW 14.4 11.5 - 14.5 % 11/08/2024 11:[address] [facility] PLT 293 150 - 350 x10'3/uL 11/08/2024 11:05 AM T [facility] MPV 11.3(H) 7.4 - 10.4 FL 11/08/2024 11:[address] [facility] CBC COMMENT NORMAL REFERENCE RANGE NOT ESTABLISHED FOR THE PROPORTIONAL LEUKOCYTE DIFFERENTIAL. 11/08/2024 11:[address] [facility] NEUTROPHILS % 86.6 % 11/08/2024 11:[address] [facility] LYMPHOCYTES % 4.8 % 11/08/2024 11:05 AM T [facility] MONOCYTES % 7.5 % 11/08/2024 11:05 AM T [facility] EOSINOPHILS % 0.1 % 11/08/2024 11:05 AM T [facility] BASOPHILS % 0.2 % 11/08/2024 11:05 AM T [facility] IMMATURE GRANS % 0.8 % 11/09/19 11:05 AM T [facility] NRBC % 0.0 % 11/08/2024 11:05 AM T [facility] ABS. NEUTROPHILS 17.56(H) 1.60 - 8.30 x10'3/uL 11/08/2024 11:05 AM CDT [facility] ABS. LYMPHOCYTES 0.98 0.80 - 4.70 x10'3/uL 11/08/2024 11:05 AM CDT [facility] ABS. MONOCYTES 1.53(H) 0.00 - 1.50 x10'3/uL 11/08/2024 11:05 AM CDT [facility] ABS. EOSINOPHILS 0.02 0.00 - 0.40 x10'3/uL 11/08/2024 11:05 AM CDT [facility] ABS. BASOPHILS 0.04 0.00 - 0.20 x10'3/uL 11/08/2024 11:05 AM CDT [facility] ABS. IMMATURE GRANULOCYTES 0.17(H) 0.00 - 0.03 x10'3/uL 11/08/2024 11:05 AM CDT [facility] ABS. NUCLEATED RBC'S 0.00 0.00 - 0.01 x10'3/uL 11/08/2024 11:05 AM CDT [facility] 11/08/2024 10:5 3 AM CDT us Conrad Moody MD LABORATORY Final Result Performing Organization Address [facility]/ZIP Co de Phone Number [facility] [address] [place] [address], * (ABNORMAL) MAGNESIUM (11/08/2024 10:53 AM CDT) MAGNESIUM 1.2(L) 1.8 - 2.4 MG/DL 11/08/2024 11:42 AM CDT [facility] 11/08/2024 10:5 3 AM CDT us Conrad Moody MD LABORATORY Final Result Performing Organization Address City/[facility]/ZIP Co de Phone Number [facility] [place] [address], * LIPASE (11/08/2024 10:53 AM CDT) LIPASE 17 16 - 77 UNITS/L 11/08/2024 11:42 AM CDT [facility] 11/08/2024 10:5 3 AM CDT Conrad Moody MD LABORATORY Final Result [facility] [address] [place] [address], * ETHANOL (11/08/2024 10:53 AM CDT) ALCOHOL S/P/B <0.003 <0.003 G/DL 11/08/2024 11:35 AM CDT [facility] 11/08/2024 10:5 3 AM CDT Conrad Moody MD LABORATORY Final Result Performing Organization Address [facility] Co de Phone Number [facility] [address] [place] [phone], from Last 3 Months Additional Health Concerns Infection Onset Date Last Indicated C. difficile 11/08/2024 11/08/[address] [place] [address] Care Teams Supervisor Tunnel Heading Relationship Specialty Start Date End Date Non-Staff, Provider PCP - General UNKNOWN PHYSICIAN SPECIALTY 11/08/24
[2024-11-17 15:48] LABS: Alanine Aminotransferase 22 U/L (14-59); Albumin Level 3.3 g/dL (3.4-5.0); Alkaline Phosphatase 94 U/L (46-116); Anion Gap 6 mmol/L (4-12); Aspartate Amino Transferase 16 U/L (15-37); Bilirubin,Total 0.3 mg/dL (0.00-1.00); Blood Urea Nitrogen 23 mg/dL (7-18); Calcium 9.3 mg/dL (8.5-10.1); Carbon Dioxide 31 mmol/L (21-32); Chloride 104 mmol/L (98-108); Estimated Glomerular Filt Rate 45; Glucose 69 mg/dL (70-99); Iron 198 ug/dL (50-170); Magnesium 2.1 mg/dL (1.8-2.4); Osmolality Calculated 293 mOsm/kg (285-295); Percent Iron Saturation 99 % (12-57); Sodium 141 mmol/L (136-145); Total Protein 7.4 g/dL (6.4-8.2); Vitamin B12 277 pg/mL (193-986)
== END 2024-11-17 14:30 | disposition home or self-care (01) ==
PROVIDERS: PCP Nurse Practitioner Family; Visit Provider Nurse Practitioner Family
DX: F10.930 Alcohol use, unspecified with withdrawal, uncomplicated (principal); I10 Essential (primary) hypertension; E87.6 Hypokalemia; E83.42 Hypomagnesemia; E53.8 Deficiency of other specified B group vitamins
CPT/HCPCS: 36415; 80053; 82607; 83540; 83550; 83735; 85025; 85055

== ENCOUNTER 2024-11-24 16:17 | Inpatient (IN) | payer OTHER, SELFPAY ==
[2024-11-24] VITALS (7 sets, daily range): BP systolic 125–161; BP diastolic 71–89; PULSE 99–114; RESP 17–20; TEMP 37.1–38.6; O2SAT 95–99; BMI 21.2
--- NOTE | ~2024-11-24 | XR_ITS ---
XR abdomen/kub 1V 11/27/2024 08:36 INDICATION: Abdominal pain for 2 weeks TECHNIQUE: KUB COMPARISON: None FINDINGS: Bowel gas pattern is normal. Moderate colonic fecal loading. There is no evidence of free a ir, mass, organomegaly, ascites or obstruction. No abnormal calculi are seen. The bones appear inta ct. IMPRESSION: 1: No acute abdominal abnormality identified. Reviewed, dictated and finalized at location A.
--- NOTE | ~2024-11-24 | XR_ITS ---
XR chest 1V portable Ordering provider: Stalin White MD History: 49 years Female with . Weakness, heart attack last week . Comparison: October 18, 2024 FINDINGS: MEDIASTINUM: The cardiac silhouette is not enlarged. LUNGS: No infiltrates, effusions or pneumothorax. OTHER: No free air under the diaphragm. IMPRESSION: No acute cardiopulmonary pathology Reviewed, dictated and finalized at location A.
--- NOTE | ~2024-11-24 | CT_ITS ---
CT abdomen pelvis wo con Ordering provider: Stalin White MD History: 49 years Female with . , ab pain upper and lower . Comparison: None. Technique: CT abdomen and without IV and without oral contrast. Automated exposure control and iterat nunu reconstruction technique were employed. The dose-length product was 211.21 mGy-cm. Findings: VISUALIZED LOWER CHEST: Normal. UPPER ABDOMINAL ORGANS: Liver: Hepatomegaly. Gallbladder: Normal. Slightly prominent CBD. Spleen: Normal. Stomach/duodenum: Small sliding hiatus hernia. Pancreas: Normal. Adrenals: Normal. Kidneys: Tiny stone in the left kidney lower pole. One is of the renal pelvis on the right side is no rayo. The right lower ureter is not well demonstrated. PELVIC ORGANS: The bladder is grossly distended. BOWEL AND MESENTERY: Colon: No evidence of diverticulitis. Fecal material is loaded in the colon.. Appendix is not demonst rated. Small Bowel: Normal. Fluid is seen in the small bowel. No obstruction. Peritoneum/mesentery: No free air or free fluid. No mesenteric lymphadenopathy. RETROPERITONEUM: Mild atheromatous disease of the abdominal aorta. No retroperitoneal lymphadenopat hy. MUSCULOSKELETAL: Superficial soft tissues: The superficial soft tissues are normal. Bones: Age appropriate degenerative changes of the spine. IMPRESSION: 1. Hepatomegaly. 2. No evidence of appendicitis, diverticulitis or intestinal obstruction. 3. Left kidney stone. 4. Mild renal pelvis fullness on the right side. The distal right ureter is not well demonstrated. 5. Grossly distended urinary bladder. 6. Constipation. Normal0 Reviewed, dictated and finalized at location A. IMPRESSION: 1. Hepatomegaly. 2. No evidence of appendicitis, diverticulitis or intestinal obstruction. 3. Left kidney stone. 4. Mild renal pelvis fullness on the right side. The distal right ureter is no t well demonstrated. 5. Grossly distended urinary bladder. 6. Constipation. Normal0
--- NOTE | ~2024-11-24 | CT_ITS ---
EXAMINATION: CT abdomen pelvis wo con DATE: 11/26/2024 09:37 INDICATION: 2 weeks of abdominal pain TECHNIQUE: Computed tomography (CT) of the abdomen and pelvis was performed without intravenous contr ast. Automated exposure control and iterative reconstruction technique were employed. The dose-length product was 414.26 mGy-cm. COMPARISON: 11/24/2024 FINDINGS: Elevation of the left hemidiaphragm. Small bilateral pleural effusions with mild bibasilar atelectasi s. Additional discoid atelectasis in the right middle lobe. Heart size is normal. Small pericardial e ffusion. There appears to be persistent wall thickening of the partially decompressed gallbladder. Co mmon bile duct is dilated. No evident intrahepatic biliary ductal dilation. Spleen, pancreas and bila teral adrenal glands are normal. There is mild bilateral hydroureteronephrosis extending to the corina lly distended bladder which measures 18 x 12 x 13.5 cm. No evident urolithiasis. Uterus and bilateral adnexa are unremarkable. Large amount of stool scattered throughout the colon. Small bowel and appen angeline are normal. Minimal amount of free fluid in the cul-de-sac. No abscess or free intraperineal gas. Small fat-containing umbilical hernia. No pathologically enlarged abdominal or pelvic lymphadenopath y. IMPRESSION: 1. Marked distention the bladder and mild bilateral hydroureteronephrosis suggesting a obstruction or neurogenic bladder. 2. Very small bilateral pleural effusions, small pericardial effusion and minimal ascites in the cul- de-sac. 3. Gallbladder wall thickening which is been present since 10/21/2024 with no dilation the gallbladder and no evident cholelithiasis or sonographic Fernando's on intervening ultrasound to suggest acute cho lecystitis this could be related to chronic cholecystitis, renal failure, liver disease, heart failur e or other generalized edema forming states. 4. Large amount stool scattered throughout the colon. Correlate clinically for constipation. Reviewed, dictated and finalized at location A. IMPRESSION: 1. Marked distention the bladder and mild bilateral hydroureteronephrosis sugge sting a obstruction or neurogenic bladder. 2. Very small bilateral pleural effusions, small pericardial effusion and minim al ascites in the cul-de-sac. 3. Gallbladder wall thickening which is been present since 10/21/2024 with no di lation the gallbladder and no evident cholelithiasis or sonographic Fernando's on intervening ultrasound to suggest acute cholecystitis this could be related to chronic cholecystitis, renal failure, liver disease, heart failure or other ge neralized edema forming states. 4. Large amount stool scattered throughout the colon. Correlate clinically for constipation.
--- NOTE | ~2024-11-24 | XR_ITS ---
EXAMINATION: XR chest 1V portable DATE: 11/26/2024 09:56 INDICATION: Congestive heart failure TECHNIQUE: frontal view of the chest was obtained. COMPARISON: Chest radiograph dated 11/24/2024 FINDINGS: Skinfold projects of the lateral right lower lung zone. Mild elevation the left hemidiaphragm. No foc al airspace opacities, pulmonary edema, pleural effusion or pneumothorax. The cardiomediastinal silho uette is normal. Visualized bones and soft tissues are unremarkable. IMPRESSION: 1. No acute cardiopulmonary disease. Reviewed, dictated and finalized at location A.
--- OUTSIDE RECORDS SUMMARY | 2024-11-24 16:19 | XMS_ITS | Encounter Summary ---
Author Organization [facility] Address [address] [place] [address] Phone Care Team Providers Care Product Development Carpenter Name Role Phone Joellen Shepherd APRN, RAIL TRANSPORTATION OPERATOR Primary Care Provi jameel Reason for Visit * Auth/Cert (Routine) Specialty Diagnoses / Procedures Referred By Contac t Referred To Contact Referral ID Status Reason Start Date Expiration Date Visits Re quested Visits Authorized [id number] Encounter Details Date Type Department Care Team (Late st Contact Info) Description 11/21/2024 [facility] [address] [place] [address] Elham Hitchcock, OT TELEPHONE ENCOUNTER Social History Tobacco Use Types Packs/Day Years Used Date Smoking Tobacco: Every Day Cigarettes 1 26.3 Started: 1998 Passive Smoke Exposure: Current Alcohol Use Standard Drinks/Week Comments Not Currently 0 (1 standard drink = 0.6 oz pure alcohol) Around a pint a day. last drink 5 weeks ago [facility] Utilities Answer Date Recorded In the past 12 months has [employer], gas, oil, or water [employer] threatened to shut off services in your home? Patient declined 11/08/2024 Social Connection and Isolation Panel [NHANES] A nswer Date Recorded In a typical week, how many times do you talk on the phone with family, friends, or neighbors? Patient declined 11/08/2024 How often do you get togethe r with friends or relatives? Patient declined 11/08/2024 How often do you attend bahai or mandaen serv ices? Patient declined 11/08/2024 Do you belong to any clubs o r organizations such as bahai groups, unions, fraternal or athletic groups, or [...] medical care, and heating? Patient declined 11/08/2024 [facility] - Occupational Stress Questionnaire Answer Date Recorded [...] any time in the past 12 m [place], were you homeless or living in a long-term (including now)? No 11/08/2024 Sexually Active Control Partners Comments Not Currently Comments No Sex and Gender Information Value Date Recorded Sex Assigned at Not on file Legal Sex Female 1:48 PM CDT Gender Identity Not on file Sexual Orientation Not on file documented as of this encounter Plan of Treatment Upcoming Encounters Date Type Department Care Team (Late st Contact Info) Description 11/25/2024 1:00 AM CDT Home Care Visit [address] [address] Bettye Whitaker RN MD 12/02/2024 1:00 AM CDT Home Care Visit [address] [address] Bettye Whitaker RN MD 12/09/2024 1:00 AM CDT Home Care Visit [address] [address] Bettye Whitaker RN MD 12/16/2024 1:00 AM CDT Home Care Visit [address] [address] Bettye Whitaker RN MD 12/23/2024 1:00 AM CDT Home Care Visit [address] [address] Bettye Whitaker RN MD 12/30/2024 1:00 AM CDT Home Care Visit [address] [address] Bettye Whitaker RN MD 01/06/2025 1:00 AM CDT Home Care Visit [address] [address] Bettye Whitaker, [place] MD 01/12/2025 1:00 AM CDT Appointment [facility] [address] [place] [address] Bettye Whitaker, RN MD documented as of this encounter Visit Diagnoses Not on filedocumented in this encounter Additional Health Concerns Infection Onset Date Last Indicated Resolved Time C. difficile 11/08/2024 11/08/2024 documented as of this encounter Home Health Visit - Actions and Narratives Narratives called to schedule pt with n o answer on phone, no voice mail and no return phone call documented in this encounter Care Teams Product Development Carpenter Relationship Specialty Start Date End Date Joellen Shepherd, DIABETOLOGIST, RAIL TRANSPORTATION OPERATOR [address] [place] [address] PCP - General Advanced Practice Nurse 11/09/24 documented as of this encounter
--- OUTSIDE RECORDS SUMMARY | 2024-11-24 16:19 | XMS_ITS | Clinical Summary ---
Author Organization [facility] Address [address] [place] [address] Phone Care Team Providers Care Perinatal Breastfeeding Assistant Name Role Phone Joellen Shepherd APRN, BASEBALL INSPECTOR AND REPAIRER Primary Care Provi jameel Allergies Active Allergy [...] days. 30 Tablet 5 12/13/19 25 Active lisinopril (PRINIVIL, ZESTRIL) 5 MG Tablet Take 1 Tablet by mouth daily. 30 Tablet 5 Active vancomycin (VANCOCIN) 125 MG CapsuleIndicati ons:Clostridioi bienvenido Difficile Infection Take 1 Capsule by mouth every 6 hours for 11 days. Indications: Clostridium Difficile Infection 44 Capsule 5 11/23/19 25 Active Problems Problem Noted Date Diagnosed Date Acute urinary retention 11/08/2024 Hypertensive urgency 11/08/2024 Sepsis OMAIRA (acute kidney injury) Ileus Cholecystitis Diarrhea Normocytic anemia Hypokalemia Polysubstance dependence Tobacco dependency Alcohol dependency Encounters Date Type Department Care Team Description 11/21/2024 Home Care Visit [address] [address] Elham Hitchcock OT TELEPHONE ENCOUNTER 11/21/2024 Home Care Visit [address] [address] Bettye Whitaker, RN TELEPHONE ENCOUNTER 11/16/2024 1:30 PM CDT Home Care Visit [address] [address] Keri Lopez, INVESTIGATIVE ANALYST INVESTIGATIVE ANALYST - HOME VISIT 11/16/2024 Home Care Visit [address] [address] Meg Cassidy, PT CASE COMMUNICATION 11/15/2024 2:30 PM CDT Home Care Visit [address] [address] Bettye Whitaker, RN SN - OASIS START OF CARE 11/15/2024 Plan of Care Documentation [address] [address] 11/14/2024 7:08 AM CDT - 11/14/2024 11:59 AM CDT [facility] [address] [place] [address] Andrei Yao, Hypertension Discharge Disposition: Discharged to home or Selfcare 11/14/2024 Travel 11/08/2024 8:15 PM CDT - 11/12/2024 12:26 PM CDT Hospital Encounter [facility] Med Surg [address] [place] [address] Sanjay Reed MD Sepsis (HCC) Discharge Disposition: Home Health Care [facility] 11/08/2024 Travel from Last 3 Months Family [...] a day. last drink [address] [facility] [employer] Answer Date Recorded In the past 12 months has [employer], gas, oil, or water [employer] threatened to shut off services in your home? Patient declined 11/08/2024 Social Connection and Isolation Panel [NHANES] A nswer Date Recorded In a typical week, how many times do you talk on the phone with family, friends, or neighbors? Patient declined 11/08/2024 How often do you get togethe r with friends or relatives? Patient declined 11/08/2024 How often do you attend christian or synagogue serv ices? Patient declined 11/08/2024 Do you belong to any clubs o r organizations such as christian groups, unions, fraternal or athletic groups, or [...] medical care, and heating? Patient declined 11/08/2024 [facility] - Occupational Stress [...] [facility] in the [facility], were you homeless or living in a halfway (including now)? No 11/08/2024 Sexually Active Control [...] 11/25/2024 1:00 AM CDT Home Care Visit [address] [address] Bettye Whitaker, [place] 12/02/2024 1:00 AM CDT Home Care Visit [address] [address] Bettye Whitaker RN [place] 12/09/2024 1:00 AM CDT Home Care Visit [address] [address] Bettye Whitaker RN [place] 12/16/2024 1:00 AM CDT Home Care Visit [address] [address] Bettye Whitaker, [place] 12/23/2024 1:00 AM CDT Home Care Visit [address] [address] Bettye Whitaker RN [place] 12/30/2024 1:00 AM CDT Home Care Visit [address] [address] Bettye Whitaker RN [place] 01/06/2025 1:00 AM CDT Home Care Visit [address] [address] Bettye Whitaker, [place] 01/12/2025 1:00 AM CDT Appointment [facility] [address] [place] [address] Bettye Whitaker RN [place] Health Maintenance Due Date Last Done Comments [...] 11/09/2020 Colorectal Cancer Screening 11/09/2020 SARS-COV-2 Immunization ( season) 2024 Influenza Immunization (Seas on Ended) [...] BY ABNORMAL RESULTS (11/14/2024 9:53 AM CDT) [facility] SPECIFIC GRAVITY 1.010 1.003 - 1.030 11/14/2024 10:51 AM CDT [facility] URINE PH 7.0 5.0 - 9.0 11/14/2024 10:51 AM CDT [facility] WBC ESTERASE 25 /ul(A) Negative 11/14/2024 10:51 AM CDT [facility] NITRITE Negative Negative 11/14/2024 10:51 AM CDT [facility] PROTEIN, RANDOM URINE 100 mg/dL(A) Negative 11/14/2024 10:51 AM CDT [facility] URINE GLUCOSE, QUAL Negative Negative 11/14/2024 10:51 AM CDT [facility] URINE KETONES Negative Negative 11/14/2024 10:51 AM CDT [facility] UROBILINOGEN Normal Normal mg/dL 11/14/2024 10:51 AM CDT [facility] URINE BLOOD 50 /uL(A) Negative billy/ul 11/14/2024 10:51 AM CDT [facility] URINALYSIS COLOR Yellow 11/15/19 10:51 AM CDT [facility] URINALYSIS CLARITY Clear 11/14/2024 10:51 AM CDT [facility] WBC (Urine) 0-5 Negative, 0-5 /hpf 11/14/2024 10:51 AM CDT [facility] URINE RBC'S 11-20(A) Negative, 0-2 /hpf 11/14/2024 10:51 AM CDT [facility] EPITHELIAL CELLS Small amount /lpf 2024 10:51 AM CDT [facility] BACTERIA, URINE Few(A) Negative /hpf 11/14/2024 10:51 AM CDT [facility] Urine (Indwelling Catheter) Non-Phlebotomy Collection / Unknown 11/14/2024 9:53 AM CDT 11/14/2024 10:27 AM CDT us Andrei Yao DO URINE ORDERABLES Final Result [facility] [address] [place] [address] * EKG 12 LEAD (11/14/2024 8:07 AM CDT) Ventricular Rate 99 BPM EXTERNAL EKG Atrial Rate 99 BPM EXTERNAL EKG P-R Interval 124 ms EXTERNAL EKG QRS Duration 92 ms EXTERNAL EKG Q-T Duration 376 ms EXTERNAL EKG QTC CALCULATION 482 ms EXTERNAL EKG P Talmage 68 degrees EXTERNAL EKG R Talmage 72 degrees EXTERNAL EKG T Talmage 72 degrees EXTERNAL EKG 11/14/2024 8:07 AM CDT Impressions EXTERNAL EKG - 11/15/2024 4:45 PM CDT Normal sinus rhythm Possible Left atrial enlargement QTcB >= 480 msec Abnormal ECG No previous ECGs available Confirmed by MADELINE SANDOVAL ([id number]) on 11/15/2024 4:45:02 PM Narrative Procedure Note Madeline Sandoval MD - 11/15/2024 IMPRESSION: Normal sinus rhythm Possible Left atrial enlargement QTcB >= 480 msec Abnormal ECG No previous ECGs available Confirmed by MADELINE SANDOVAL ([id number]) on 11/15/2024 4:45:02 PM us Andrei Yao DO IMG ECG ORDERABLES Belia l Result Performing Organization Address City/[facility]/ZIP Co de Phone Number EXTERNAL EKG * TROPONIN I, HIGH SENSITIVITY (HSTRP) (11/14/2024 7:53 AM CDT) [facility] TROPONIN I, HIGH SENSITIVITY- ESPOSITO 9 <=14 ng/L 11/14/2024 9:12 AM CDT [facility] Comment: High-sensitivity troponin I results are reported in ng/L making the result appear to be 1,000 times higher than the contemporary troponin I value which is reported in ng/ml. Results from [place]. Blood Venipuncture / Unknown 11/14/2024 7:53 AM CDT 11/14/2024 8:40 AM CDT us Andrei Yao DO CHEMISTRY ORDERABLES Fi nal Result Performing Organization Address City/[facility]/ZIP Co de Phone Number [facility] [address] [place] [address] * (ABNORMAL) Manual Differential (11/14/2024 7:53 AM CDT) BANDS % 2.0 % 11/14/2024 9:22 AM CDT [facility] NEUTROPHILS % 73.0 47.0 - 73.0 % 11/14/2024 9:22 AM CDT [facility] LYMPHOCYTES % 19.0 18.0 - 42.0 % 11/14/2024 9:22 AM CDT [facility] MONOCYTES % 3.0(L) 4.0 - 12.0 % 11/14/2024 9:22 AM CDT [facility] EOSINOPHILS % 3.0 0.0 - 5.0 % 11/14/2024 9:22 AM CDT [facility] NEUTROPHILS ABSOLUTE 7.62 1.60 - 7.70 10(3)/mcL 11/14/2024 9:22 AM CDT [facility] LYMPHOCYTES ABSOLUTE 1.93 1.30 - 3.20 10(3)/[facility] 11/14/2024 9:22 AM CDT [facility] MONOCYTES ABSOLUTE 0.30 0.20 - 1.00 10(3)/mcL 11/14/2024 9:22 AM CDT [facility] EOSINOPHILS ABSOLUTE 0.30 0.00 - 0.40 10(3)/mcL 11/14/2024 9:22 AM CDT [facility] REACTIVE LYMPHOCYTES 1 11/14/2024 9:22 AM CDT [facility] WBC MORPH STATUS Normal 11/15/19 9:22 AM CDT [facility] RBC MORPH STATUS Normal 11/15/19 9:22 AM CDT [facility] PLATELET STATUS Normal 9:22 AM CDT [facility] Blood Venipuncture / Unknown 11/14/2024 7:53 AM CDT 11/14/2024 8:40 AM CDT us Andrei Yao DO HEMATOLOGY ORDERABLES F inal Result [facility] [address] [place] [address] * (ABNORMAL) CBC with Auto Differential (11/14/2024 7:53 AM CDT) Only the most recent of6 resultswithin the time period is included. WBC 10.16 4.00 - 12.00 10(3)/mcL 11/14/2024 9:22 AM CDT [facility] RBC 3.64(L) 3.80 - 5.30 10(6)/mcL 11/14/2024 9:22 AM CDT [facility] HEMOGLOBIN (HGB) 10.8(L) 12.0 - 15.8 g/dL 11/14/2024 9:22 AM CDT [facility] HEMATOCRIT (HCT) 32.9(L) 36.0 - 47.0 % 11/14/2024 9:22 AM CDT [facility] MCV 90.4 82.0 - 96.0 fL 11/14/2024 9:22 AM CDT [facility] MCH 29.7 26.0 - 34.0 pg 11/14/2024 9:22 AM CDT [facility] MCHC 32.8 31.0 - 36.0 g/dL 11/14/2024 9:22 AM CDT [facility] PLATELET COUNT 578(H) 140 - 440 10(3)/mcL 11/14/2024 9:22 AM CDT [facility] RDW 13.3 11.8 - 15.5 % 11/14/2024 9:22 AM CDT [facility] MPV 10.6 9.7 - 12.4 fL 11/14/2024 9:22 AM CDT [facility] NRBC PER 100 WBC 0 11/14/2024 9:22 AM CDT [facility] RESULTS ARE CONSISTENT WITH PERIPHERAL SMEAR REVIEW Yes 11/14/2024 9:22 AM CDT [facility] RBC MORPHOLOGY CONSISTENT WITH INDICES Yes 11/14/2024 9:22 AM CDT [facility] Blood Venipuncture / Unknown 11/14/2024 7:53 AM CDT 11/14/2024 8:40 AM CDT us Andrei Houston Maximilian DO HEMATOLOGY ORDERABLES F inal Result [facility] [address] [place] [address] * CMP (Comprehensive Metabolic Panel) (11/14/2024 7:53 AM CDT) Only the most recent of2 resultswithin the time period is included. SODIUM 141 136 - 145 mmol/L 11/14/2024 9:07 AM CDT [facility] POTASSIUM 3.5 3.5 - 5.1 mmol/L 11/14/2024 9:07 AM CDT [facility] CHLORIDE 106 98 - 107 mmol/L 11/14/2024 9:07 AM CDT [facility] CO2, VENOUS 25 22 - 30 mmol/L 11/14/2024 9:07 AM CDT [facility] ANION GAP 13.5 <18.0 mmol/L 11/14/2024 9:07 AM CDT [facility] GLUCOSE 97 70 - 99 mg/dL 11/14/2024 9:07 AM CDT [facility] BUN 17 5 - 18 mg/dL 11/14/2024 9:07 AM CDT [facility] CREATININE, BLOOD 0.85 0.60 - 1.00 mg/dL 11/14/2024 9:07 AM CDT [facility] BUN/CREATININE RATIO 20 12 - 20 ratio 11/14/2024 9:07 AM CDT [facility] TOTAL PROTEIN 7.5 6.0 - 8.0 g/dL 11/14/2024 9:07 AM CDT [facility] ALBUMIN 3.7 3.5 - 5.0 g/dL 11/14/2024 9:07 AM CDT [facility] A/G RATIO 1.0 1.0 - 2.2 11/14/2024 9:07 AM CDT [facility] CALCIUM 9.0 8.7 - 10.5 mg/dL 11/14/2024 9:07 AM CDT [facility] T BILI 0.2 0.2 - 1.2 mg/dL 11/14/2024 9:07 AM CDT [facility] SGOT (AST) 23 <43 U/L 11/14/2024 9:07 AM CDT [facility] SGPT (ALT) 18 <56 U/L 11/14/2024 9:07 AM CDT [facility] ALKALINE PHOSPHATASE 83 40 - 150 U/L 11/14/2024 9:07 AM CDT [facility] GFR, ESTIMATED >60 >=60 11/14/2024 9:07 AM CDT [facility] Comment: Creatinine Clearance is the preferred criteria for selecting drug dose adjustments in renally impaired patients. The GFR is provided as additional pertinent clinical information. GFR is reported in mL/min/1.73 sq m. Calculation based on the Chronic Kidney Disease Epidemiology Collaboration (CKD- EPI) equation refit without adjustment for race. GFR, EST. >60 >=60 025 9:07 AM CDT [facility] GFR, EST. NONAFRICAN >60 >=60 11/14/2024 9:07 AM CDT [facility] Blood Venipuncture / Unknown 11/14/2024 7:53 AM CDT 11/14/2024 8:40 AM CDT us Andrei Yoa DO CHEMISTRY ORDERABLES Fi nal Result [facility] [address] [place] [address] * EKG SCAN (11/14/2024 12:00 AM CDT) 11/14/2024 us Provider Scan IMG ECG ORDERABLES Final Result RESULTING AGENCY * (ABNORMAL) BMP with Ca, Total (11/12/2024 4:23 AM CDT) Only the most recent of3 resultswithin the time period is included. SODIUM 141 136 - 145 mmol/L 11/12/2024 5:58 AM CDT [facility] POTASSIUM 3.6 3.5 - 5.1 mmol/L 11/12/2024 5:58 AM CDT [facility] CHLORIDE 109(H) 98 - 107 mmol/L 11/12/2024 5:58 AM CDT [facility] CO2, VENOUS 23 22 - 30 mmol/L 11/12/2024 5:58 AM CDT [facility] ANION GAP 12.6 <18.0 mmol/L 11/12/2024 5:58 AM CDT [facility] GLUCOSE 77 70 - 99 mg/dL 11/12/2024 5:58 AM CDT [facility] BUN 12 5 - 18 mg/dL 11/12/2024 5:58 AM CDT [facility] CREATININE, BLOOD 0.95 0.60 - 1.00 mg/dL 11/12/2024 5:58 AM CDT [facility] BUN/CREATININE RATIO 13 12 - 20 ratio 11/12/2024 5:58 AM CDT [facility] CALCIUM 8.4(L) 8.7 - 10.5 mg/dL 11/12/2024 5:58 AM CDT [facility] GFR, ESTIMATED >60 >=60 11/12/2024 5:58 AM CDT [facility] Comment: Creatinine Clearance is the preferred criteria for selecting drug dose adjustments in renally impaired patients. The GFR is provided as additional pertinent clinical information. GFR is reported in mL/min/1.73 sq m. Calculation based on the Chronic Kidney Disease Epidemiology Collaboration (CKD- EPI) equation refit without adjustment for race. GFR, EST. >60 >=60 025 5:58 AM CDT [facility] GFR, EST. NONAFRICAN >60 >=60 11/12/2024 5:58 AM CDT [facility] Blood Venipuncture / Unknown 11/12/2024 4:23 AM CDT 11/12/2024 5:34 AM CDT us Amy Villeda SENIOR STATISTICIAN, BASEBALL INSPECTOR AND REPAIRER CHEMISTRY ORDERABLES Final Result Performing Organization Address City/[facility]/ZIP Co de Phone Number [facility] [address] [place] [address] * Culture, Blood (11/11/2024 5:38 PM CDT) Only the most recent of2 resultswithin the time period is included. CULTURE RESULTS NO GROWTH WITHIN 5 DAYS, FINAL RESULT 11/16/2024 6:01 PM CDT [facility] Culture (Peripheral Vein) Venipuncture / Unknown 11/11/2024 5:38 PM CDT 11/11/2024 5:40 PM CDT us Sanjay Reed MD MICROBIOLOGY - GENERAL O RDERABLES Final Result Performing Organization Address [facility] Co de Phone Number [facility] [address] [place] [address], [place] * RHYTHM STRIP (2024 12:00 AM CDT) [...] mm. No pericholecystic fluid. No positive sonographic Bethle[place] sign reported. BILIARY: There is no intrahepatic or extrahepatic biliary ductal dilatation. Common bile duct measures 0.2 cm in diameter. OTHER: No other significant findings. THIS IS AN ELECTRONICALLY VERIFIED FINAL REPORT 11/09/2024 1:54 PM - Electronically signed by Sparkle Leblanc M.D. FT: FT Report ID: [id number] Reading Location: [id number] Procedure Note Sparkle Zelaya MD - 11/09/2024 [...] mm. No pericholecystic fluid. No positive sonographic [place]le[place] sign reported. BILIARY: There is no intrahepatic or extrahepatic biliary ductal dilatation. Common bile duct measures 0.2 cm in diameter. OTHER: No other significant findings. THIS IS AN ELECTRONICALLY VERIFIED FINAL REPORT 11/09/2024 1:54 PM - Electronically signed by Sparkle Leblanc M.D. FT: FT Report ID: [id number] Reading Location: [id number] IMPRESSION: Biliary sludge and borderline gallbladder wall thickening. No pericholecystic fluid or positive sonographic Fernando's sign. Findings are equivocal for acute cholecystitis. If there is persistent clinical concern, HIDA scan may be performed. us Mike Parra MD [facility] US ORDERABLES Fin al Result * (ABNORMAL) Renal Function Panel (11/09/2024 4:23 AM CDT) SODIUM 138 136 - 145 mmol/L 11/09/2024 7:21 AM CDT [facility] POTASSIUM 3.3(L) 3.5 - 5.1 mmol/L 11/09/2024 7:21 AM CDT [facility] CHLORIDE 107 98 - 107 mmol/L 11/09/2024 7:21 AM CDT [facility] CO2, VENOUS 20(L) 22 - 30 mmol/L 11/09/2024 7:21 AM CDT [facility] ANION GAP 14.3 <18.0 mmol/L 11/09/2024 7:21 AM CDT [facility] GLUCOSE 85 70 - 99 mg/dL 11/09/2024 7:21 AM CDT [facility] BUN 37(H) 5 - 18 mg/dL 11/09/2024 7:21 AM CDT [facility] CREATININE, BLOOD 2.43(H) 0.60 - 1.00 mg/dL 11/09/2024 7:21 AM CDT [facility] BUN/CREATININE RATIO 15 12 - 20 ratio 11/09/2024 7:21 AM CDT [facility] ALBUMIN 3.0(L) 3.5 - 5.0 g/dL 11/09/2024 7:21 AM CDT [facility] CALCIUM 8.3(L) 8.7 - 10.5 mg/dL 11/09/2024 7:21 AM CDT [facility] PHOSPHORUS 4.4 2.5 - 4.5 mg/dL 11/09/2024 7:21 AM CDT [facility] GFR, ESTIMATED 24(L) >=60 11/09/2024 7:21 AM CDT [facility] Comment: Creatinine Clearance is the preferred criteria for selecting drug dose adjustments in renally impaired patients. The GFR is provided as additional pertinent clinical information. GFR is reported in mL/min/1.73 sq m. Calculation based on the Chronic Kidney Disease Epidemiology Collaboration (CKD- EPI) equation refit without adjustment for race. GFR, EST. 26(L) >=60 025 7:21 AM CDT [facility] GFR, EST. NONAFRICAN 21(L) >=60 11/09/2024 7:21 AM CDT [facility] Blood Venipuncture / Unknown 11/09/2024 4:23 AM CDT 11/09/2024 5:57 AM CDT us Gia Walton SENIOR STATISTICIAN, BASEBALL INSPECTOR AND REPAIRER CHEMISTRY ORDERABLES Belia l Result [facility] [address] [place] [address] * Magnesium (Mg) (11/09/2024 4:23 AM CDT) Only the most recent of2 resultswithin the time period is included. MAGNESIUM 2.6 1.6 - 2.6 mg/dL 11/09/2024 7:21 AM CDT [facility] Blood Venipuncture / Unknown 11/09/2024 4:23 AM CDT 11/09/2024 5:57 AM CDT us Gia Walton SENIOR STATISTICIAN, JAMAL CHEMISTRY ORDERABLES Belia nazanin Result [facility] [address] [place] [address] * CT RENAL STONE STUDY (ABDOMEN AND PELVIS W/O CONTRAST) (11/09/2024 12:43 AM CDT) Anatomical Region Laterality Modality Abdomen N/A Computed Tomogra phy 11/09/2024 1:00 AM CDT Impressions 11/09/2024 1:02 AM CDT [...] by Liv Lauren M.D. SN: Report ID: [id number] Reading Location: [id number] Procedure Note Liv Lauren MD - 11/09/2024 [...] by Liv Lauren M.D. SN: Report ID: [id number] Reading Location: [id number] IMPRESSION: No acute intra-abdominal or pelvic abnormality seen. Daniel catheter and rectal tube in place. Tiny fat containing periumbilical hernia. us Gia Walton APRN, CNP IMG CT ORDERABLES Final R esult * CONSULT - OTHER (11/09/2024 12:00 AM CDT) Only the most recent of4 resultswithin the time period is included. 11/09/2024 us Provider Scan GENERIC SCAN ORDERS CONSULT Belia back Result SCAN * (ABNORMAL) C. DIFF BY PCR (11/08/2024 11:25 PM CDT) C DIFF TOXIN DNA BY PCR Positive(A ) Negative, Invalid 11/09/2024 1:37 AM CDT [facility] Comment:Please see Reflex C. diff Quik Chek Complete order results Other STOOL SPECIMEN / Unknown Non-Phlebotomy Collection / Unknown 11/08/2024 11:25 PM CDT 11/08/2024 11:49 PM CDT us Gia Walton APRN, CNP MICROBIOLOGY - GENERAL OR DERABLES Final Result [facility] [address] [place] [address] * REFLEX C DIFF QUIK CHEK COMPLETE (11/08/2024 11:25 PM CDT) TOXIN A/B Negative Negative, INVALID, Not Applicable 11/09/2024 1:37 AM CDT [facility] Comment:These results are mullen ggestive of C. difficile colonization and may not reflect C. difficile infection requiring treatment. The significance of these results must be interpreted in the context of the patient's clinical scenario. Other STOOL SPECIMEN / Unknown Non-Phlebotomy Collection / Unknown 11/08/2024 11:25 PM CDT 11/08/2024 11:49 PM CDT Gia Walton APRN, JAMAL MICROBIOLOGY - GENERAL OR DERABLES Final Result [facility] [address] [place] [address] * Culture, Stool (11/08/2024 11:25 PM CDT) Pathologist [facility] CULTURE RESULTS NEGATIVE FOR CAMPYLOBACTER ANTIGEN 2024 3:41 PM CDT [facility] CULTURE RESULTS SHIGA TOXIN 1 AND SHIGA TOXIN 2 NOT DETECTED 2024 3:41 PM CDT [facility] CULTURE RESULTS Heavy Mixed genesis 2024 3:41 PM CDT [facility] Culture STOOL SPECIMEN / Unknown Non-Phlebotomy Collection / Unknown 11/08/2024 11:25 PM CDT 11/08/2024 11:49 PM CDT Narrative [facility] - 2024 3:41 PM CDT Unless stated above as an isolate, no Salmonella, Shigella, E Coli O157, Aeromonas, or Pleisiomonas species isolated us Gia Walton APRN, BASEBALL INSPECTOR AND REPAIRER MICROBIOLOGY - GENERAL OR DERABLES Final Result [facility] [address] [place] [address], * Ur Sodium (Na) Random (11/08/2024 11:24 PM CDT) SODIUM, RANDOM URINE 42 mmol/L 11/09/2024 2:45 PM CDT [facility] Comment:No reference range h as been established. Consider Clinical Correlation. Urine Non-Phlebotomy Collection / Unknown 11/08/2024 11:24 PM CDT 11/08/2024 11:48 PM CDT us Gia Walton APRN, BASEBALL INSPECTOR AND REPAIRER URINE ORDERABLES Final Re sult Performing Organization Address [facility]/ZIP Co de Phone Number [facility] [address] [place] [address], [place] * Ur Potassium (K) Random (11/08/2024 11:24 PM CDT) UR POTASSIUM, RANDOM 21 mmol/L 11/09/2024 2:45 PM CDT [facility] Comment:No reference range h as been established. Consider Clinical Correlation. Urine Non-Phlebotomy Collection / Unknown 11/08/2024 11:24 PM CDT 11/08/2024 11:48 PM CDT us Gia Walton APRN, BASEBALL INSPECTOR AND REPAIRER URINE ORDERABLES Final Re sult Performing Organization Address [facility] Co de Phone Number [facility] [address] [place] [address], [place] * Ur Osmolality (11/08/2024 11:24 PM CDT) OSMOLALITY, URINE 271 50 - 1,400 mOsm/kg 11/09/2024 3:27 PM CDT [facility] Urine Non-Phlebotomy Collection / Unknown 11/08/2024 11:24 PM CDT 11/08/2024 11:48 PM CDT us Gia Walton APRN, BASEBALL INSPECTOR AND REPAIRER URINE ORDERABLES Final Re sult Performing Organization Address City/[facility]/ZIP Co de Phone Number [facility] [address] [place] [address], [place] * Ur Chloride (Cl) Random (11/08/2024 11:24 PM CDT) [facility] CHLORIDE, RANDOM URINE 29 mmol/L 11/09/2024 2:45 PM CDT [facility] Comment:No reference range h as been established. Consider Clinical Correlation. Urine Non-Phlebotomy Collection / Unknown 11/08/2024 11:24 PM CDT 11/08/2024 11:48 PM CDT us Gia Walton APRN, BASEBALL INSPECTOR AND REPAIRER URINE ORDERABLES Final Re sult Performing Organization Address City/[facility]/ZIP Co de Phone Number [facility] [address] [place] [address], [place] * (ABNORMAL) IRON,TRANSFERN,CALC.TIBC,%SAT (11/08/2024 10:05 PM CDT) [facility] IRON 9(L) 25 - 156 mcg/dL 11/08/2024 11:59 PM CDT [facility] TRANSFERRIN 125(L) 180 - 382 mg/dL 11/08/2024 11:59 PM CDT [facility] TIBC, CALCULATED 156(L) 265 - 497 mcg/dL 11/08/2024 11:59 PM CDT [facility] % SATURATION * 6(L) 15 - 62 % 11/08/2024 11:59 PM CDT [facility] Blood Venipuncture / Unknown 11/08/2024 10:05 PM CDT 11/08/2024 10:14 PM CDT Gia Walton APRN, BASEBALL INSPECTOR AND REPAIRER CHEMISTRY ORDERABLES Belia l Result [facility] [place] [address] * Vitamin B12 (11/08/2024 10:05 PM CDT) VITAMIN B12 238 213 - 816 pg/mL 11/09/2024 12:29 AM CDT [facility] Blood Venipuncture / Unknown 11/08/2024 10:05 PM CDT 11/08/2024 10:14 PM CDT us Gia Walton APRN, BASEBALL INSPECTOR AND REPAIRER CHEMISTRY ORDERABLES Belia l Result [facility] [place] [address] * Osmolality Serum (11/08/2024 10:05 PM CDT) OSMOLALITY 295 275 - 295 mOsm/kg 11/09/2024 2:51 PM CDT [facility] Blood Venipuncture / Unknown 11/08/2024 10:05 PM CDT 11/08/2024 10:14 PM CDT Narrative [facility] - 11/09/2024 2:51 PM CDT Result is an averaged value us Gia Walton APRN, BASEBALL INSPECTOR AND REPAIRER CHEMISTRY ORDERABLES Belia l Result Performing Organization Address City/[facility]/ZIP Co de Phone Number [facility] [address] [place] [address], [place] * Lactic Acid (Lactate) (11/08/2024 10:05 PM CDT) LACTIC ACID 0.9 0.7 - 2.0 mmol/L 11/08/2024 11:18 PM CDT [facility] Blood Venipuncture / Unknown 11/08/2024 10:05 PM CDT 11/08/2024 10:13 PM CDT us Gia Walton APRN, BASEBALL INSPECTOR AND REPAIRER CHEMISTRY ORDERABLES Belia l Result [facility] [address] [place] [address] * FOLIC ACID (FOLATE) (11/08/2024 10:05 PM CDT) FOLATE 11.1 7.0 - 31.4 ng/mL 11/09/2024 12:29 AM CDT [facility] Blood Venipuncture / Unknown 11/08/2024 10:05 PM CDT 11/08/2024 10:14 PM CDT us Gia Walton APRN, BASEBALL INSPECTOR AND REPAIRER CHEMISTRY ORDERABLES Belia l Result Performing Organization Address [facility]/ZIP Co de Phone Number [facility] [place] [address] * (ABNORMAL) Ferritin (11/08/2024 10:05 PM CDT) FERRITIN 815(H) 5 - 204 ng/mL 11/09/2024 12:29 AM CDT [facility] Blood Venipuncture / Unknown 11/08/2024 10:05 PM CDT 11/08/2024 10:14 PM CDT us Gia Walton APRN, BASEBALL INSPECTOR AND REPAIRER CHEMISTRY ORDERABLES Belia l Result Performing Organization Address [facility] Co de Phone Number [facility] [address] [place] [address] * [place] - ABDOMEN/PELVIS (10/21/2024 12:00 AM CDT) Only the most recent of3 resultswithin the time period is included. 10/21/2024 us Provider Scan IMG US ORDERABLES Final Result Performing Organization Address City/[facility]/ZIP Co de Phone Number SCAN * CT - ABDOMEN/PELVIS (10/20/2024 12:00 [...] Indicated C. 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 PRE-ARREST: Use entire range of life support measures to stabilize the patient. Care Teams Perinatal Breastfeeding Assistant Relationship Specialty Start Date End Date Joellen Shepherd, SENIOR STATISTICIAN, BASEBALL INSPECTOR AND REPAIRER [address] [place] [address] PCP - General Advanced Practice Nurse 11/09/24
--- OUTSIDE RECORDS SUMMARY | 2024-11-24 16:19 | XMS_ITS | Encounter Summary ---
Author Organization [facility] Address [address] [place] [address] Phone Care Team Providers Care Transmission Systems Operator Name Role Phone Joellen Shepherd APRN, PLANNING DIVISION SUPERINTENDENT Primary Care Provi jameel Reason for Visit * Auth/Cert (Routine) Specialty Diagnoses / Procedures Referred By Contac t Referred To Contact Referral ID Status Reason Start Date Expiration Date Visits Re quested Visits Authorized [id number] Encounter Details Date Type Department Care Team (Late st Contact Info) Description 11/21/2024 [facility] [address] [place] [address] Bettye Whitaker, RN [place] TELEPHONE ENCOUNTER Social History Tobacco Use Types Packs/Day Years Used Date Smoking Tobacco: Every Day Cigarettes 1 26.3 Started: 1998 Passive Smoke Exposure: Current Alcohol Use Standard Drinks/Week Comments Not Currently 0 (1 standard drink = 0.6 oz pure alcohol) Around a pint a day. last drink 5 weeks ago [facility] Utilities Answer Date Recorded In the past 12 months has [employer], gas, oil, or water [employer] threatened to shut off services in your home? Patient declined 11/08/2024 Social Connection and Isolation Panel [NHANES] A nswer Date Recorded In a typical week, how many times do you talk on the phone with family, friends, or neighbors? Patient declined 11/08/2024 How often do you get togethe r with friends or relatives? Patient declined 11/08/2024 How often do you attend gnosticist or jewish serv ices? Patient declined 11/08/2024 Do you belong to any clubs o r organizations such as gnosticist groups, unions, fraternal or athletic groups, or [...] medical care, and heating? Patient declined 11/08/2024 [facility] - Occupational Stress Questionnaire Answer Date Recorded [...] any time in the past 12 m [facility], were you homeless or living in [...] 1:00 AM CDT Home Care Visit [address] [address] Bettye Whitaker RN [place] 12/02/2024 1:00 AM CDT Home Care Visit [address] [address] Bettye Whitaker RN [place] 12/09/2024 1:00 AM CDT Home Care Visit [address] [address] Bettye Whitaker RN [place] 12/16/2024 1:00 AM CDT Home Care Visit [address] [address] Bettye Whitaker RN [place] 12/23/2024 1:00 AM CDT Home Care Visit [address] [address] Bettye Whitaker, RN [place] 12/30/2024 1:00 AM CDT Home Care Visit [address] [address] Bettye Whitaker RN [place] 01/06/2025 1:00 AM CDT Home Care Visit [address] [address] Bettye Whitaker, [place] 01/12/2025 1:00 AM CDT Appointment [facility] [address] [place] [address] Bettye Whitaker RN [place] documented as of this encounter Visit Diagnoses Not on filedocumented in this encounter Additional Health Concerns Infection Onset Date Last Indicated Resolved Time C. difficile 11/08/2024 11/08/2024 documented as of this encounter Care Teams Transmission Systems Operator Relationship Specialty Start Date End Date Joellen Shepherd, VP CONSTRUCTION, PLANNING DIVISION SUPERINTENDENT [address] [place] [address] PCP - General Advanced Practice Nurse 11/09/24 documented as of this encounter
--- OUTSIDE RECORDS SUMMARY | 2024-11-24 16:20 | XMS_ITS | Clinical Summary ---
Author Organization [facility] Address [facility] [place] [address] Care Team Providers Care Order Entry Technician Name Role Phone Non-Staff, Provider Primary Care Provider Unavai lable Allergies Active Allergy Reactions Criticality Noted Date Comments Levofloxacin Unknown 11/08/2024 Oxycodone Unknown 11/08/2024 Medications No known medications Encounters Date Type Department Care Team Description 11/08/2024 10:25 AM CDT - 11/08/2024 6:46 PM CDT Emergency [place] [address] [place] [address] [place] [address] Sully Hatfield MD Generalized Weakness Discharge Disposition: [...] Colonoscopy (10 Years) 1975 Annual Physical 11/09/1978 Hepatitis C 11/09/1993 DTaP, Tdap and Td Vaccines ( 1 - Tdap) 11/09/1994 Hepatitis B Vaccines (1 of 3 - 19+ 3-dose series) 11/09/1994 Pneumococcal Vaccine: Pediat rics (0 to 5 Years) and At-Risk Patients (6 to 49 Years) (1 of 2 - PCV) 11/09/1994 Cervical Cancer Screening Pa p with [...] DETECTED NOT DETECTED 11/09/2024 4:56 PM CDT [facility] PLESIOMONAS SHIGELLOIDES PCR (STOOL) NOT DETECTED NOT DETECTED 11/09/2024 4:56 PM CDT [facility] SALMONELLA PCR (STOOL) NOT DETECTED NOT DETECTED 11/09/2024 4:56 PM CDT [facility] VIBRIO PCR (STOOL) NOT DETECTED NOT DETECTED 11/09/2024 4:56 PM CDT [facility] VIBRIO CHOLERAE PCR (STOOL) NOT DETECTED NOT DETECTED 11/09/2024 4:56 PM CDT [facility] YERSINIA ENTEROCOLITICA PCR (STOOL) NOT DETECTED NOT DETECTED 11/09/2024 4:56 PM CDT [facility] ENTEROAGGREGATIVE ECOLI PCR (STOOL) NOT DETECTED NOT DETECTED 11/09/2024 4:56 PM CDT [facility] ENTEROPATHOGENIC ECOLI PCR (STOOL) NOT DETECTED NOT DETECTED 11/09/2024 4:56 PM CDT [facility] ENTEROTOXIGENIC ECOLI PCR (STOOL) NOT DETECTED NOT DETECTED 11/09/2024 4:56 PM CDT [facility] SHIGA LIKE TOXIN ECOLI PCR (STOOL) NOT DETECTED NOT DETECTED 11/09/2024 4:56 PM CDT [facility] SHIG/ENTEROINVASIVE ECOLI PCR (STOOL) NOT DETECTED NOT DETECTED 11/09/2024 4:56 PM CDT [facility] CRYPTOSPORIDIUM PCR (STOOL) NOT DETECTED NOT DETECTED 11/09/2024 4:56 PM CDT [facility] CYCLOSPORA CAYETANENSIS PCR (STOOL) NOT DETECTED NOT DETECTED 11/09/2024 4:56 PM CDT [facility] ENTAMOEBA HISTOLYTICA PCR (STOOL) NOT DETECTED NOT DETECTED 11/09/2024 4:56 PM CDT [facility] GIARDIA LAMBLIA PCR (STOOL) NOT DETECTED NOT DETECTED 11/09/2024 4:56 PM CDT [facility] ADENOVIRUS F40/41 PCR (STOOL) NOT DETECTED NOT DETECTED 11/09/2024 4:56 PM CDT [facility] ASTROVIRUS PCR (STOOL) NOT DETECTED NOT DETECTED 11/09/2024 4:56 PM CDT [facility] NOROVIRUS GI/GII PCR (STOOL) NOT DETECTED NOT DETECTED 11/09/2024 4:56 PM CDT [facility] ROTAVIRUS A PCR (STOOL) NOT DETECTED NOT DETECTED 11/09/2024 4:56 PM CDT [facility] SAPOVIRUS PCR (STOOL) NOT DETECTED NOT DETECTED 11/09/2024 4:56 PM CDT [facility] STOOL SPECIMEN / Unknown 11/08/2024 5:17 PM CDT Conrad Moody MD MICROBIOLOGY - GENERAL ORDERABLE S Final Result [facility] [address] [place] [address], [place] [phone] * (ABNORMAL) CLOSTRIDIUM DIFFICILE (11/08/2024 5:17 PM CDT) GDH ANTIGEN POSITIVE(A) NEGATIVE 11/08/2024 6:20 PM CDT [facility] Comment: CALLED TO [place] [facility] 4.2.25 AT 0810 BY READ BACK AND VERIFIED C DIFFICILE TOXIN A&B (STOOL) POSITIVE(A) NEGATIVE 11/08/2024 6:32 PM CDT [facility] Comment: CALLED TO [place] [facility] 1.2.25 AT 0810 BY READ BACK AND VERIFIED COMMENT GDH POSITIVE/TOXI N A & B POSITIVE: POSITIVE FOR TOXIGENIC C. DIFFICILE. (A) GDH NEGATIVE/TOXI N A & B NEGATIVE: NEGATIVE FOR TOXIGENIC C. 11/08/2024 6:32 PM CDT [facility] Comment: CALLED TO ER CALLED PCP 4.1.25 STOOL STOOL SPECIMEN / Unknown 11/08/2024 5:17 PM CDT us Conrad Moody MD BODY FLUIDS AND STOOLS ORDERABLE S Final Result [facility] [address] [place] [address], [place] [phone] * CT HEAD WO CON (11/08/2024 12:31 PM CDT) Anatomical Region Laterality Modality Head Computed Tomogra phy 11/08/2024 12:4 6 PM CDT Impressions 11/08/2024 12:47 PM CDT IMPRESSION: No CT evidence of an acute intracranial abnormality. Ordered By: CONRAD MOODY Interpreted By: Arnaldo Cardoso MD, 11/08/2024 12:46 PM Narrative 11/08/2024 12:47 PM [address] [place] [address] Examination: CT HEAD WO CON, 11/08/2024 12:31 [...] There is no extra-axial fluid collection. Preserved wesis-white matter differentiation. The ventricles are normal in size. The basal cisterns appear normal. The orbital contents appear normal. The nasal sinuses and mastoid air cells are well aerated. There is no acute fracture nor destructive process of the visualized osseous structures. Procedure Note Arnaldo Cardoso MD - 11/08/[address] [place] [address] Examination: CT HEAD WO CON, 11/08/2024 12:31 [...] 12:51 PM Narrative 11/08/2024 1:01 PM CDT [place] [address] [facility] [place] [address] Examination: CT of the abdomen and pelvis [...] Procedure Note Ney Arevalo MD - 11/08/[address] [place] [address] Examination: CT of the abdomen and pelvis [...] CDT) 11/08/2024 12:0 9 PM CDT Narrative [facility] - 11/09/2024 3:[address] [place] [address] Test Date: 2024-11-08 Pat Name: CHRISTIAN PATEL Department: 3 Room: EXAM 606 Gender: Female Chemical Tester: : 1975 Requested By: CONRAD MOODY Order Number: [id number] Reading MD: Jaspreet Steele Measurements Intervals [place] Rate: 113 P: 61 WA: 112 QRS: 62 QRSD: 90 T: 215 QT: 325 QTc: 446 Interpretive Statements SINUS TACHYCARDIA WITH SHORT WA INTERVAL LEFT VENTRICULAR HYPERTROPHY AND ST-T CHANGE nondiagnostic inferior/lateral q-waves Procedure Note Jaspreet Steele MD - 11/09/[address] [place] [address] Test Date: 2024-11-08 Pat Name: CHRISTIAN PATEL Department: 3 Room: EXAM 606 Gender: Female Chemical Tester: : 1975 Requested By: MIRENA MOODY Order Number: [id number] Reading MD: Jaspreet Steele Measurements Intervals [place] Rate: 113 P: 61 WA: 112 QRS: 62 QRSD: 90 T: 215 QT: 325 QTc: 446 Interpretive Statements SINUS TACHYCARDIA WITH SHORT WA INTERVAL LEFT VENTRICULAR HYPERTROPHY AND ST-T CHANGE nondiagnostic inferior/lateral q-waves us Conrad Moody MD ECG ORDERABLES Final Result Performing Organization Address City/[facility] Co de Phone Number [facility] * CULTURE, BACTERIA, BLOOD (11/08/2024 12:03 PM CDT) Only the most recent of2 resultswithin the time period is included. SPEC DESCRIPTION BLOOD 11/09/19 6:[address] [facility] SPECIAL REQUESTS BLOOD-AERO BIC BOTTLE ONLY 11/08/2024 6:[address] [facility] CULTURE RESULT NO GROWTH 5 DAYS 11/13/2024 6:[address] [facility] BLOOD SPECIMEN OBTAINED FOR BLOOD CULTURE / Unknown 11/08/2024 12:03 PM CDT 11/08/2024 12:05 PM CDT us Conrad Moody MD MICROBIOLOGY - GENERAL ORDERABLE S Final Result Performing Organization Address [facility] Co de Phone Number [facility] [address] [place] [address], [phone] * LACTIC ACID W REFLEX (SEPSIS) (11/08/2024 11:50 AM CDT) LACTIC ACID VENOUS 1.7 0.4 - 2.0 MMOL/L 11/08/2024 12:17 PM CDT [facility] 11/08/2024 11:5 0 AM CDT us Conrad Moody MD LABORATORY Final Result Performing Organization Address City/[facility]/ZIP Co de Phone Number [facility] [address] [place] [address], * TROPONIN, QUANT (11/08/2024 11:50 AM CDT) TROPONIN I HIGH SENSITIVITY 26 0 - 51 ng/L 11/08/2024 12:17 PM CDT [facility] 11/08/2024 11:5 0 AM CDT us Conrad Moody MD LABORATORY Final Result [facility] [address] [place] [address], * CK (CPK) (11/08/2024 11:50 AM CDT) CPK 96 26 - 192 U/L 11/08/2024 12:17 PM CDT [facility] 11/08/2024 11:5 0 AM CDT us Conrad Moody MD LABORATORY Final Result Performing Organization Address City/[facility]/ZIP Co de Phone Number [facility] [address] [place] [address], * (ABNORMAL) DRUG SCREEN RAPID (11/08/2024 11:21 AM CDT) CANNABINOIDS SCREEN (U) NEGATIVE NEGATIVE 11/08/2024 11:41 AM CDT [facility] PHENCYCLIDINE PCP (U) NEGATIVE NEGATIVE 11/08/2024 11:41 AM CDT [facility] COCAINE METABOLITES (U) NEGATIVE NEGATIVE 11/08/2024 11:41 AM CDT [facility] METHAMPHETAMINE SCREEN (U) POSITIVE(A) NEGATIVE 11/08/2024 11:41 AM CDT [facility] OPIATE SCREEN (U) NEGATIVE NEGATIVE 025 11:41 AM CDT [facility] AMPHETAMINE SCREEN (U) POSITIVE(A) NEGATIVE 11/08/2024 11:41 AM CDT [facility] BENZODIAZEPINES SCREEN (U) POSITIVE(A) NEGATIVE 11/08/2024 11:41 AM CDT [facility] TRICYCLIC ANTIDEPRESSANT SCREEN (U) NEGATIVE NEGATIVE 11/08/2024 11:41 AM CDT [facility] METHADONE (U) NEGATIVE NEGATIVE 11/08/2024 11:41 AM CDT [facility] BARBITURATES SCREEN (U) NEGATIVE NEGATIVE 11/08/2024 11:41 AM CDT [facility] OXYCODONE SCREEN (U) POSITIVE(A) NEGATIVE 11/08/2024 11:41 AM CDT [facility] URINE TOX COMMENT THIS TEST METHODOLOGY IS DESIGNED AND OFFERED A RAPID TURNAROUND, QUALITATIVE SCREENING PROCEDURE TO AID IN THE IMMEDIATE MEDICAL ASSESSMENT OF PATIENTS SUSPECTED OF SUBSTANCE ABUSE. 11/08/2024 11:20 AM CDT [facility] Comment: CLINICAL CONSIDERATION AND PROFESSIONAL JUDGMENT MUST BE APPLIED TO ANY DRUG OF ABUSE TEST RESULT, BOTH POSITIVE AND NEGATIVE. CONFIRMATORY QUANTITATIVE RESULTS ARE AVAILABLE THROUGH OUR REFER[facility]. URINE SPECIMEN / Unknown 11/08/2024 11:21 AM CDT Conrad Moody MD URINE ORDERABLES Final Result [facility] [address] [place] [address], * (ABNORMAL) URINALYSIS (11/08/2024 11:21 AM CDT) COLOR (U) YELLOW 11/08/2024 11:42 AM CDT [facility] TRANSPARENCY CLEAR 11/08/2024 11:42 AM CDT [facility] SPECIFIC GRAVITY (U) 1.025 1.000 - 1.025 11/08/2024 11:42 AM CDT [facility] U PH 8.5(H) 5.0 - 8.0 11/08/2024 11:42 AM CDT [facility] LEUKOCYTES (U) 2+(A) NEGATIVE 11/08/2024 11:42 AM CDT [facility] NITRITES NEGATIVE NEGATIVE 11/08/2024 11:42 AM CDT [facility] PROTEIN RANDOM (U) 3+(A) NEGATIVE 11/08/2024 11:42 AM CDT [facility] GLUCOSE (U) NEGATIVE NEGATIVE 11/08/2024 11:42 AM CDT [facility] KETONES MG/DL (U) NEGATIVE NEGATIVE 11/08/2024 11:42 AM CDT [facility] UROBILINOGEN 0.2 <1.0 EU/DL 11/08/2024 11:42 AM CDT [facility] BILIRUBIN (U) NEGATIVE NEGATIVE 11/08/2024 11:42 AM CDT [facility] BLOOD (U) 2+(A) NEGATIVE 11/08/2024 11:42 AM CDT [facility] WBC/HPF 10-20(A) 0 - 5 /HPF 11/08/2024 11:42 AM CDT [facility] RBC/HPF 10-20(A) 0 - 5 /HPF 11/08/2024 11:42 AM CDT [facility] EPI/LPF RARE /LPF 11/08/2024 11:42 AM CDT [facility] BACTERIA (U) 3+ /HPF 11/08/2024 11:42 AM CDT [facility] URINE SPECIMEN OBTAINED BY CLEAN CATCH PROCEDURE / Unknown 11/08/2024 11:21 AM CDT us Conrad Moody MD URINE ORDERABLES Final Result [facility] [address] [place] [address], * CULTURE URINE (11/08/2024 11:21 AM CDT) SPEC DESCRIPTION URINE CLEAN CATCH 11/08/2024 11:20 AM CDT [facility] SPECIAL REQUESTS NO SPECIAL REQUEST 11/08/2024 11:20 AM CDT [facility] CULTURE RESULT >25,000 TO 50,000 CFU/mL PSEUDOMONAS AERUGINOSA 2024 9:[address] [facility] URINE SPECIMEN OBTAINED BY CLEAN [...] MICROBIOLOGY - GENERAL ORDERABLE S Final Result [facility] [address] [place] [address], [phone] [facility] [address] [place] [address], * (ABNORMAL) COMPREHENSIVE METABOLIC PANEL (11/08/2024 10:53 AM CDT) SODIUM S/P/B 135(L) 136 - 145 MMOL/L 11/08/2024 11:35 AM CDT [facility] POTASSIUM S/P/B 4.3 3.5 - 5.1 MMOL/L 11/08/2024 11:35 AM CDT [facility] CHLORIDE S/P/B 99 98 - 107 MMOL/L 11/08/2024 11:35 AM CDT [facility] CO2 20.9(L) 21.0 - 32.0 MMOL/L 11/08/2024 11:35 AM CDT [facility] GLUCOSE 94 70 - 99 MG/DL 11/08/2024 11:35 AM CDT [facility] Comment: FASTING GLUCOSE 100 TO 125 MG/DL IS CONSISTENT WITH IMPAIRED FASTING GLUCOSE. FASTING GLUCOSE >125 MG/DL IS CONSISTENT WITH DIABETES. RANDOM GLUCOSE >200 MG/DL WITH HYPERGLYCEMIC SYMPTOMS IS CONSISTENT WITH DIABETES. PER ADA GUIDELINES BUN 39(H) 6 - 24 MG/DL 11/08/2024 11:35 AM [facility] CREATININE S/P/B 3.52(H) 0.55 - 1.02 MG/DL 11/08/2024 11:35 AM [facility] CALCIUM S/P/B 8.0(L) 8.4 - 10.5 MG/DL 11/08/2024 11:35 AM [facility] BILIRUBIN TOTAL S/P/B 0.4 0.2 - 1.0 MG/DL 11/08/2024 11:35 AM [facility] Comment: THIS ASSAY IS NOT RECOMMENDED FOR PATIENTS UNDERGOING TREATMENT WITH ELTROMBOPAG DUE TO THE POTENTIAL FOR FALSELY ELEVATED RESULTS. ALKALINE PHOSPHATASE S/P/B 88 39 - 100 U/L 11/08/2024 11:35 AM [facility] AST 12(L) 15 - 37 U/L 11/08/2024 11:35 AM [facility] ALT 15 14 - 59 U/L 11/08/2024 11:35 AM [facility] TOTAL PROTEIN S/P/B 5.5(L) 6.4 - 8.2 G/DL 11/08/2024 11:35 AM [facility] ALBUMIN S/P/B 2.0(L) 3.4 - 5.0 G/DL 11/08/2024 11:35 AM [facility] ANION GAP 15.1(H) 5.0 - 15.0 MMOL/L 11/08/2024 11:35 AM [facility] OSMOLALITY (CALC) 289 MOSM/KG 025 11:35 AM [facility] Comment:REFERENCE RANGE NOT ESTABLISHED GFR ESTIMATE 15(L) >89 ML/MIN/1. 73 M2 11/08/2024 11:35 AM [facility] GFR NOTES GFR REFERENCE S: 11/08/2024 11:35 AM [facility] Comment: THE ESTIMATED GFR IS CALCULATED [...] MD LABORATORY Final Result Performing Organization Address [facility]/ZIP Co de Phone Number [facility] [address] [place] [address], * HCG QUANT (SERUM)-CHORIONIC GONADOTROPIN (11/08/2024 10:53 AM CDT) HCG QUANTITATIVE 1 0.0 - 6.0 MIU/ML 11/08/2024 11:35 AM CDT [facility] Comment:NON- FEMALE 0-6 11/08/2024 10:5 3 AM CDT us Conrad Moody MD LABORATORY Final Result Performing Organization Address City/[facility]/ZIP Co de Phone Number [facility] [address] [place] [address], * (ABNORMAL) CBC W/DIFF AUTOMATED (11/08/2024 10:53 AM CDT) WBC 20.30(H) 4.00 - 10.80 x10'3/uL 11/08/2024 11:05 AM CDT [facility] RBC 3.14(L) 4.10 - 5.40 x10'6/uL 11/08/2024 11:05 AM CDT [facility] HGB 9.8(L) 12.0 - 16.0 G/DL 11/08/2024 11:05 AM T [facility] HCT 29.3(L) 36.0 - 47.0 % 11/08/2024 11:05 AM T [facility] MCV 93.3 78.0 - 100.0 FL 11/08/2024 11:05 AM T [facility] MCH 31.2(H) 27.0 - 31.0 PG 11/08/2024 11:05 AM T [facility] MCHC 33.4 33.0 - 36.0 G/DL 11/08/2024 11:05 AM T [facility] RDW 14.4 11.5 - 14.5 % 11/08/2024 11:05 AM [facility] PLT 293 150 - 350 x10'3/uL 11/08/2024 11:05 AM T [facility] MPV 11.3(H) 7.4 - 10.4 FL 11/08/2024 11:05 AM [facility] CBC COMMENT NORMAL REFERENCE RANGE NOT ESTABLISHED FOR THE PROPORTIONAL LEUKOCYTE DIFFERENTIAL. 11/08/2024 11:05 AM [facility] NEUTROPHILS % 86.6 % 11/08/2024 11:05 AM [facility] LYMPHOCYTES % 4.8 % 11/08/2024 11:05 AM T [facility] MONOCYTES % 7.5 % 11/08/2024 11:05 AM T [facility] EOSINOPHILS % 0.1 % 11/08/2024 11:05 AM T [facility] BASOPHILS % 0.2 % 11/08/2024 11:05 AM T [facility] IMMATURE GRANS % 0.8 % 11/09/19 11:05 AM T [facility] NRBC % 0.0 % 11/08/2024 11:05 AM T [facility] ABS. NEUTROPHILS 17.56(H) 1.60 - 8.30 x10'3/uL 11/08/2024 11:05 AM CDT [facility] ABS. LYMPHOCYTES 0.98 0.80 - 4.70 x10'3/uL 11/08/2024 11:05 AM CDT [facility] ABS. MONOCYTES 1.53(H) 0.00 - 1.50 x10'3/uL 11/08/2024 11:05 AM CDT [facility] ABS. EOSINOPHILS 0.02 0.00 - 0.40 x10'3/uL 11/08/2024 11:05 AM CDT [facility] ABS. BASOPHILS 0.04 0.00 - 0.20 x10'3/uL 11/08/2024 11:05 AM CDT [facility] ABS. IMMATURE GRANULOCYTES 0.17(H) 0.00 - 0.03 x10'3/uL 11/08/2024 11:05 AM CDT [facility] ABS. NUCLEATED RBC'S 0.00 0.00 - 0.01 x10'3/uL 11/08/2024 11:05 AM CDT [facility] 11/08/2024 10:5 3 AM CDT us Conrad Moody MD LABORATORY Final Result Performing Organization Address [facility]/ZIP Co de Phone Number [facility] [address] [place] [address], * (ABNORMAL) MAGNESIUM (11/08/2024 10:53 AM CDT) MAGNESIUM 1.2(L) 1.8 - 2.4 MG/DL 11/08/2024 11:42 AM CDT [facility] 11/08/2024 10:5 3 AM CDT us Conrad Moody MD LABORATORY Final Result Performing Organization Address City/[facility]/ZIP Co de Phone Number [facility] [place] [address], * LIPASE (11/08/2024 10:53 AM CDT) LIPASE 17 16 - 77 UNITS/L 11/08/2024 11:42 AM CDT [facility] 11/08/2024 10:5 3 AM CDT Conrad Moody MD LABORATORY Final Result [facility] [address] [place] [address], * ETHANOL (11/08/2024 10:53 AM CDT) ALCOHOL S/P/B <0.003 <0.003 G/DL 11/08/2024 11:35 AM CDT [facility] 11/08/2024 10:5 3 AM CDT Conrad Moody MD LABORATORY Final Result Performing Organization Address [facility] Co de Phone Number [facility] [address] [place] [phone], from Last 3 Months Additional Health Concerns Infection Onset Date Last Indicated C. difficile 11/08/2024 11/08/[address] [place] [address] Care Teams Order Entry Technician Relationship Specialty Start Date End Date Non-Staff, Provider PCP - General UNKNOWN PHYSICIAN SPECIALTY 11/08/24
--- NOTE | 2024-11-24 16:26 | ECG_ITS ---
Test Date: 2024-11-24 17:20:18 Measurements Intervals [place] Rate: 113 P: 67 WA: 111 QRS: 61 QRSD: 98 T: 234 QT: 330 QTc: 453 Interpretive Statements SINUS TACHYCARDIA WITH SHORT WA INTERVAL LEFT VENTRICULAR HYPERTROPHY AND ST-T CHANGE MINIMAL Q WAVES- ANTEROLAT/INF LEADS BASELINE ARTIFACT- I, AVL, V1, V4-V6 ABNORMAL ECG Compared to ECG 10/18/2024 19:30:36 HEART RATE HAS INCREASED Electronically Signed On 11-24-2024 20:03:46 CDT by Oleksandr Moore D.O.
--- OUTSIDE RECORDS SUMMARY | 2024-11-24 16:42 | XMS_ITS | Encounter Summary ---
Author Organization [facility] Address [address] [place] [address] Phone Care Team Providers Care Integrated Marketing Intern Name Role Phone Joellen Shepherd APRN, [employer]ITION AND EXPLOSIVES HANDLER Primary Care Provi jameel Reason for Visit * Auth/Cert (Routine) Specialty Diagnoses / Procedures Referred By Contac t Referred To Contact Referral ID Status Reason Start Date Expiration Date Visits Re quested Visits Authorized [id number] [phone] Encounter Details Date Type Department Care Team (Late st Contact Info) Description 11/21/2024 Home Care Visit [facility] [address] [place] [address] Elham Hitchcock, OT TELEPHONE ENCOUNTER Social History Tobacco Use Types Packs/Day Years Used Date Smoking Tobacco: Every Day Cigarettes 1 26.3 Started: 1998 Passive Smoke Exposure: Current Alcohol Use Standard Drinks/Week Comments Not Currently 0 (1 standard drink = 0.6 oz pure alcohol) Around a pint a day. last drink 5 weeks ago [facility] Utilities Answer Date Recorded In the past 12 months has Blued, gas, oil, or water [employer] threatened to shut off services in your home? Patient declined 11/08/2024 Social Connection and Isolation Panel [NHANES] A nswer Date Recorded In a typical week, how many times do you talk on the phone with family, friends, or neighbors? Patient declined 11/08/2024 How often do you get togethe r with friends or relatives? Patient declined 11/08/2024 How often do you attend sikh or confucianism serv ices? Patient declined 11/08/2024 Do you belong to any clubs o r organizations such as sikh groups, unions, fraternal or athletic groups, or [...] medical care, and heating? Patient declined 11/08/2024 [facility] - Occupational Stress Questionnaire Answer Date Recorded [...] any time in the past [address] [facility], were you homeless or living in a [...] 1:00 AM CDT Home Care Visit [address] [address] Bettye Whitaker [place] 12/02/2024 1:00 AM CDT Home Care Visit [address] [address] Bettye Whitaker [place] 12/09/2024 1:00 AM CDT Home Care Visit [address] [address] Bettye Whitaker [place] 12/16/2024 1:00 AM CDT Home Care Visit [address] [address] Bettye Whitaker [place] 12/23/2024 1:00 AM CDT Home Care Visit [address] [address] Bettye Whitaker [place] 12/30/2024 1:00 AM CDT Home Care Visit [address] [address] Bettye Whitaker [place] 01/06/2025 1:00 AM CDT Home Care Visit [address] [address] Bettye Whitaker, [place] 01/12/2025 1:00 AM CDT Appointment [facility] [address] [place] [address] Bettye Whitaker, [place] documented as of this encounter Visit Diagnoses [...] call documented in this encounter Care Teams Integrated Marketing Intern Relationship Specialty Start Date End Date Joellen Shepherd, BOILER TENDERS SUPERVISOR, AMM[employer]ITION AND EXPLOSIVES HANDLER [address] [place] [address] PCP - General Advanced Practice Nurse 11/09/24 documented as of this encounter
--- OUTSIDE RECORDS SUMMARY | 2024-11-24 16:42 | XMS_ITS | Clinical Summary ---
Author Organization [facility] Address [facility] [place] [address] Care Team Providers Care Academic Support Director Name Role Phone Non-Staff, Provider Primary Care Provider Unavai lable Allergies Active Allergy Reactions Criticality Noted Date Comments Levofloxacin Unknown 11/08/2024 Oxycodone Unknown 11/08/2024 Medications No known medications Encounters Date Type Department Care Team Description 11/08/2024 10:25 AM CDT - 11/08/2024 6:46 PM CDT Emergency [facility] [address] [place] [address] [place] [address] Sully Hatfield MD Generalized Weakness Discharge Disposition: [...] DETECTED NOT DETECTED 11/09/2024 4:[address] [facility] PLESIOMONAS SHIGELLOIDES PCR (STOOL) NOT DETECTED NOT DETECTED 11/09/2024 4:[address] [facility] SALMONELLA PCR (STOOL) NOT DETECTED NOT DETECTED 11/09/2024 4:[address] [facility] VIBRIO PCR (STOOL) NOT DETECTED NOT DETECTED 11/09/2024 4:[address] [facility] VIBRIO CHOLERAE PCR (STOOL) NOT DETECTED NOT DETECTED 11/09/2024 4:[address] [facility] YERSINIA ENTEROCOLITICA PCR (STOOL) NOT DETECTED NOT DETECTED 11/09/2024 4:[address] [facility] ENTEROAGGREGATIVE ECOLI PCR (STOOL) NOT DETECTED NOT DETECTED 11/09/2024 4:[address] [facility] ENTEROPATHOGENIC ECOLI PCR (STOOL) NOT DETECTED NOT DETECTED 11/09/2024 4:[address] [facility] ENTEROTOXIGENIC ECOLI PCR (STOOL) NOT DETECTED NOT DETECTED 11/09/2024 4:[address] [facility] SHIGA LIKE TOXIN ECOLI PCR (STOOL) NOT DETECTED NOT DETECTED 11/09/2024 4:[address] [facility] SHIG/ENTEROINVASIVE ECOLI PCR (STOOL) NOT DETECTED NOT DETECTED 11/09/2024 4:[address] [facility] CRYPTOSPORIDIUM PCR (STOOL) NOT DETECTED NOT DETECTED 11/09/2024 4:[address] [facility] CYCLOSPORA CAYETANENSIS PCR (STOOL) NOT DETECTED NOT DETECTED 11/09/2024 4:[address] [facility] ENTAMOEBA HISTOLYTICA PCR (STOOL) NOT DETECTED NOT DETECTED 11/09/2024 4:[address] [facility] GIARDIA LAMBLIA PCR (STOOL) NOT DETECTED NOT DETECTED 11/09/2024 4:[address] [facility] ADENOVIRUS F40/41 PCR (STOOL) NOT DETECTED NOT DETECTED 11/09/2024 4:[address] [facility] ASTROVIRUS PCR (STOOL) NOT DETECTED NOT DETECTED 11/09/2024 4:[address] [facility] NOROVIRUS GI/GII PCR (STOOL) NOT DETECTED NOT DETECTED 11/09/2024 4:[address] [facility] ROTAVIRUS A PCR (STOOL) NOT DETECTED NOT DETECTED 11/09/2024 4:[address] [facility] SAPOVIRUS PCR (STOOL) NOT DETECTED NOT DETECTED 11/09/2024 4:[address] [facility] STOOL SPECIMEN / Unknown 11/08/2024 5:17 PM CDT Conrad Moody MD MICROBIOLOGY - GENERAL ORDERABLE S Final Result [facility] [address] [place] [address], [place] [phone] * (ABNORMAL) CLOSTRIDIUM DIFFICILE (11/08/2024 5:17 PM CDT) GDH ANTIGEN POSITIVE(A) NEGATIVE 11/08/2024 6:20 PM CDT [facility] Comment: CALLED TO [place] [facility] 4.2.25 AT 0810 BY READ BACK AND VERIFIED C DIFFICILE TOXIN A&B (STOOL) POSITIVE(A) NEGATIVE 11/08/2024 6:32 PM CDT [facility] Comment: CALLED TO [place] [facility] 1.2.25 AT 0810 BY READ BACK AND VERIFIED COMMENT GDH POSITIVE/TOXI N A & B POSITIVE: POSITIVE FOR TOXIGENIC C. DIFFICILE. (A) GDH NEGATIVE/TOXI N A & B NEGATIVE: NEGATIVE FOR TOXIGENIC C. 11/08/2024 6:32 PM CDT [facility] Comment: CALLED TO ER CALLED PCP 4.1.25 STOOL STOOL SPECIMEN / Unknown 11/08/2024 5:17 PM CDT us Conrad Moody MD BODY FLUIDS AND STOOLS ORDERABLE S Final Result [facility] [address] [place] [address], [place] [phone] * CT HEAD WO CON (11/08/2024 12:31 PM CDT) Anatomical Region Laterality Modality Head Computed Tomogra phy 11/08/2024 12:4 6 PM CDT Impressions 11/08/2024 12:47 PM CDT IMPRESSION: No CT evidence of an acute intracranial abnormality. Ordered By: CONRAD MOODY Interpreted By: Arnaldo Cardoso MD, 11/08/2024 12:46 PM Narrative 11/08/2024 12:47 PM [address] [place] [address] Examination: CT HEAD WO CON, 11/08/2024 12:31 [...] Procedure Note Arnaldo Cardoso MD - 11/08/[address] [place] [address] Examination: CT HEAD WO CON, 11/08/2024 12:31 [...] 12:51 PM Narrative 11/08/2024 1:01 PM CDT [place] [id number] [facility] [place] [address] Examination: CT of the abdomen and pelvis [...] Procedure Note Ney Arevalo MD - 11/08/[address] [place] [address] Examination: CT of the abdomen and pelvis [...] CDT) 11/08/2024 12:0 9 PM CDT Narrative [facility] - 11/09/2024 3:[address] 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1975 Requested By: MIRENA MOODY Order Number: [id number] Reading MD: Jaspreet Steele Measurements Intervals [place]on Rate: 113 P: 61 [place]: 112 QRS: 62 QRSD: 90 T: 215 QT: 325 QTc: 446 Interpretive Statements SINUS TACHYCARDIA WITH SHORT OH INTERVAL LEFT VENTRICULAR HYPERTROPHY AND ST-T CHANGE nondiagnostic inferior/lateral q-waves us Conrad Moody MD ECG ORDERABLES Final Result Performing Organization Address City/[facility] Co de Phone Number [facility] * CULTURE, BACTERIA, BLOOD (11/08/2024 12:03 PM CDT) Only the most recent of2 resultswithin the time period is included. SPEC DESCRIPTION BLOOD 11/09/19 6:13 PM CDT [facility] SPECIAL REQUESTS BLOOD-AERO BIC BOTTLE ONLY 11/08/2024 6:13 PM CDT [facility] CULTURE RESULT NO GROWTH 5 DAYS 11/13/2024 6:20 PM CDT [facility] BLOOD SPECIMEN OBTAINED FOR BLOOD CULTURE / Unknown 11/08/2024 12:03 PM CDT 11/08/2024 12:05 PM CDT us Conrad Moody MD MICROBIOLOGY - GENERAL ORDERABLE S Final Result Performing Organization Address [facility] Co de Phone Number [facility] [address] [place] [address], [phone] * LACTIC ACID W REFLEX (SEPSIS) (11/08/2024 11:50 AM CDT) LACTIC ACID VENOUS 1.7 0.4 - 2.0 MMOL/L 11/08/2024 12:17 PM CDT [facility] 11/08/2024 11:5 0 AM CDT us Cnorad Moody MD LABORATORY Final Result Performing Organization Address City/[facility]/ZIP Co de Phone Number [facility] [address] [place] [address], * TROPONIN, QUANT (11/08/2024 11:50 AM CDT) TROPONIN I HIGH SENSITIVITY 26 0 - 51 ng/L 11/08/2024 12:17 PM CDT [facility] 11/08/2024 11:5 0 AM CDT us Conrad Moody MD LABORATORY Final Result [facility] [address] [place] [address], * CK (CPK) (11/08/2024 11:50 AM CDT) CPK 96 26 - 192 U/L 11/08/2024 12:17 PM CDT [facility] 11/08/2024 11:5 0 AM CDT us Conrad Moody MD LABORATORY Final Result Performing Organization Address City/[facility]/ZIP Co de Phone Number [facility] [address] [place] [phone], * (ABNORMAL) DRUG SCREEN RAPID (11/08/2024 11:21 AM CDT) CANNABINOIDS SCREEN (U) NEGATIVE NEGATIVE 11/08/2024 11:41 AM CDT [facility] PHENCYCLIDINE PCP (U) NEGATIVE NEGATIVE 11/08/2024 11:41 AM CDT [facility] COCAINE METABOLITES (U) NEGATIVE NEGATIVE 11/08/2024 11:41 AM CDT [facility] METHAMPHETAMINE SCREEN (U) POSITIVE(A) NEGATIVE 11/08/2024 11:41 AM CDT [facility] OPIATE SCREEN (U) NEGATIVE NEGATIVE 025 11:41 AM CDT [facility] AMPHETAMINE SCREEN (U) POSITIVE(A) NEGATIVE 11/08/2024 11:41 AM CDT [facility] BENZODIAZEPINES SCREEN (U) POSITIVE(A) NEGATIVE 11/08/2024 11:41 AM CDT [facility] TRICYCLIC ANTIDEPRESSANT SCREEN (U) NEGATIVE NEGATIVE 11/08/2024 11:41 AM CDT [facility] METHADONE (U) NEGATIVE NEGATIVE 11/08/2024 11:41 AM CDT [facility] BARBITURATES SCREEN (U) NEGATIVE NEGATIVE 11/08/2024 11:41 AM CDT [facility] OXYCODONE SCREEN (U) POSITIVE(A) NEGATIVE 11/08/2024 11:41 AM CDT [facility] URINE TOX COMMENT THIS TEST METHODOLOGY IS DESIGNED AND OFFERED A RAPID TURNAROUND, QUALITATIVE SCREENING PROCEDURE TO AID IN THE IMMEDIATE MEDICAL ASSESSMENT OF PATIENTS SUSPECTED OF SUBSTANCE ABUSE. 11/08/2024 11:20 AM CDT [facility] Comment: CLINICAL CONSIDERATION AND PROFESSIONAL JUDGMENT MUST BE APPLIED TO ANY DRUG OF ABUSE TEST RESULT, BOTH POSITIVE AND NEGATIVE. CONFIRMATORY QUANTITATIVE RESULTS ARE AVAILABLE THROUGH OUR [facility]. URINE SPECIMEN / Unknown 11/08/2024 11:21 AM CDT Conrad Moody MD URINE ORDERABLES Final Result [facility] [address] [place] [address], * (ABNORMAL) URINALYSIS (11/08/2024 11:21 AM CDT) COLOR (U) YELLOW 11/08/2024 11:42 AM CDT [facility] TRANSPARENCY CLEAR 11/08/2024 11:42 AM CDT [facility] SPECIFIC GRAVITY (U) 1.025 1.000 - 1.025 11/08/2024 11:42 AM CDT [facility] U PH 8.5(H) 5.0 - 8.0 11/08/2024 11:42 AM CDT [facility] LEUKOCYTES (U) 2+(A) NEGATIVE 11/08/2024 11:42 AM CDT [facility] NITRITES NEGATIVE NEGATIVE 11/08/2024 11:42 AM CDT [facility] PROTEIN RANDOM (U) 3+(A) NEGATIVE 11/08/2024 11:42 AM CDT [facility] GLUCOSE (U) NEGATIVE NEGATIVE 11/08/2024 11:42 AM CDT [facility] KETONES MG/DL (U) NEGATIVE NEGATIVE 11/08/2024 11:42 AM CDT [facility] UROBILINOGEN 0.2 <1.0 EU/DL 11/08/2024 11:42 AM CDT [facility] BILIRUBIN (U) NEGATIVE NEGATIVE 11/08/2024 11:42 AM CDT [facility] BLOOD (U) 2+(A) NEGATIVE 11/08/2024 11:42 AM CDT [facility] WBC/HPF 10-20(A) 0 - 5 /HPF 11/08/2024 11:42 AM CDT [facility] RBC/HPF 10-20(A) 0 - 5 /HPF 11/08/2024 11:42 AM CDT [facility] EPI/LPF RARE /LPF 11/08/2024 11:42 AM CDT [facility] BACTERIA (U) 3+ /HPF 11/08/2024 11:42 AM CDT [facility] URINE SPECIMEN OBTAINED BY CLEAN CATCH PROCEDURE / Unknown 11/08/2024 11:21 AM CDT us Conrad Moody MD URINE ORDERABLES Final Result [facility] [address] [place] [address], * CULTURE URINE (11/08/2024 11:21 AM CDT) SPEC DESCRIPTION URINE CLEAN CATCH 11/08/2024 11:20 AM CDT [facility] SPECIAL REQUESTS NO SPECIAL REQUEST 11/08/2024 11:20 AM CDT [facility] [facility] CULTURE RESULT >25,000 TO 50,000 CFU/mL PSEUDOMONAS AERUGINOSA 2024 9:58 AM CDT [facility] URINE SPECIMEN OBTAINED BY CLEAN [...] MICROBIOLOGY - GENERAL ORDERABLE S Final Result [facility] [address] [place] [address], [phone] [facility] [address] [place] [address], * (ABNORMAL) COMPREHENSIVE METABOLIC PANEL (11/08/2024 10:53 AM CDT) SODIUM S/P/B 135(L) 136 - 145 MMOL/L 11/08/2024 11:35 AM CDT [facility] POTASSIUM S/P/B 4.3 3.5 - 5.1 MMOL/L 11/08/2024 11:35 AM CDT [facility] CHLORIDE S/P/B 99 98 - 107 MMOL/L 11/08/2024 11:35 AM CDT [facility] CO2 20.9(L) 21.0 - 32.0 MMOL/L 11/08/2024 11:35 AM CDT [facility] GLUCOSE 94 70 - 99 MG/DL 11/08/2024 11:35 AM CDT [facility] Comment: FASTING GLUCOSE 100 TO 125 MG/DL IS CONSISTENT WITH IMPAIRED FASTING GLUCOSE. FASTING GLUCOSE >125 MG/DL IS CONSISTENT WITH DIABETES. RANDOM GLUCOSE >200 MG/DL WITH HYPERGLYCEMIC SYMPTOMS IS CONSISTENT WITH DIABETES. PER ADA GUIDELINES BUN 39(H) 6 - 24 MG/DL 11/08/2024 11:35 AM [facility] CREATININE S/P/B 3.52(H) 0.55 - 1.02 MG/DL 11/08/2024 11:35 AM [facility] CALCIUM S/P/B 8.0(L) 8.4 - 10.5 MG/DL 11/08/2024 11:35 AM [facility] BILIRUBIN TOTAL S/P/B 0.4 0.2 - 1.0 MG/DL 11/08/2024 11:35 AM [facility] Comment: THIS ASSAY IS NOT RECOMMENDED FOR PATIENTS UNDERGOING TREATMENT WITH ELTROMBOPAG DUE TO THE POTENTIAL FOR FALSELY ELEVATED RESULTS. ALKALINE PHOSPHATASE S/P/B 88 39 - 100 U/L 11/08/2024 11:35 AM [facility] AST 12(L) 15 - 37 U/L 11/08/2024 11:35 AM [facility] ALT 15 14 - 59 U/L 11/08/2024 11:35 AM [facility] TOTAL PROTEIN S/P/B 5.5(L) 6.4 - 8.2 G/DL 11/08/2024 11:35 AM [facility] ALBUMIN S/P/B 2.0(L) 3.4 - 5.0 G/DL 11/08/2024 11:35 AM [facility] ANION GAP 15.1(H) 5.0 - 15.0 MMOL/L 11/08/2024 11:35 AM [facility] OSMOLALITY (CALC) 289 MOSM/KG 025 11:35 AM [facility] Comment:REFERENCE RANGE NOT ESTABLISHED GFR ESTIMATE 15(L) >89 ML/MIN/1. 73 M2 11/08/2024 11:35 AM [facility] GFR NOTES GFR REFERENCE S: 11/08/2024 11:35 AM [facility] Comment: THE ESTIMATED GFR IS CALCULATED [...] MD LABORATORY Final Result Performing Organization Address [facility]/ZIP Co de Phone Number [facility] [place] [facility] [address] [place] [address], * HCG QUANT (SERUM)-CHORIONIC GONADOTROPIN (11/08/2024 10:53 AM CDT) HCG QUANTITATIVE 1 0.0 - 6.0 MIU/ML 11/08/2024 11:35 AM CDT [facility] Comment:NON- FEMALE 0-6 11/08/2024 10:5 3 AM CDT us Conrad Modoy MD LABORATORY Final Result Performing Organization Address City/[facility]/ZIP Co de Phone Number [facility] [place] [facility] [address] [place] [address], * (ABNORMAL) CBC W/DIFF AUTOMATED (11/08/2024 10:53 AM CDT) WBC 20.30(H) 4.00 - 10.80 x10'3/uL 11/08/2024 11:05 AM CDT [facility] [place] [facility] RBC 3.14(L) 4.10 - 5.40 x10'6/uL 11/08/2024 11:05 AM CDT [facility] [place] [facility] HGB 9.8(L) 12.0 - 16.0 G/DL 11/08/2024 11:05 AM T [facility] [place] [facility] HCT 29.3(L) 36.0 - 47.0 % 11/08/2024 11:05 AM T [facility] [place] [facility] MCV 93.3 78.0 - 100.0 FL 11/08/2024 11:05 AM T [facility] [place] [facility] MCH 31.2(H) 27.0 - 31.0 PG 11/08/2024 11:05 AM T [facility] [place] [facility] MCHC 33.4 33.0 - 36.0 G/DL 11/08/2024 11:05 AM T [facility] [place] [facility] RDW 14.4 11.5 - 14.5 % 11/08/2024 11:05 AM [facility] PLT 293 150 - 350 x10'3/uL 11/08/2024 11:05 AM T [facility] [place] [facility] MPV 11.3(H) 7.4 - 10.4 FL 11/08/2024 11:05 AM [facility] CBC COMMENT NORMAL REFERENCE RANGE NOT ESTABLISHED FOR THE PROPORTIONAL LEUKOCYTE DIFFERENTIAL. 11/08/2024 11:05 AM [facility] NEUTROPHILS % 86.6 % 11/08/2024 11:05 AM [facility] LYMPHOCYTES % 4.8 % 11/08/2024 11:05 AM T [facility] [place] [facility] MONOCYTES % 7.5 % 11/08/2024 11:05 AM T [facility] [place] [facility] EOSINOPHILS % 0.1 % 11/08/2024 11:05 AM T [facility] [place] [facility] BASOPHILS % 0.2 % 11/08/2024 11:05 AM T [facility] IMMATURE GRANS % 0.8 % 11/09/19 11:05 AM T [facility] NRBC % 0.0 % 11/08/2024 11:05 AM T [facility] [place] [facility] ABS. NEUTROPHILS 17.56(H) 1.60 - 8.30 x10'3/uL 11/08/2024 11:05 AM CDT [facility] [place] [facility] ABS. LYMPHOCYTES 0.98 0.80 - 4.70 x10'3/uL 11/08/2024 11:05 AM CDT [facility] [facility] ABS. MONOCYTES 1.53(H) 0.00 - 1.50 x10'3/uL 11/08/2024 11:05 AM CDT [facility] ABS. EOSINOPHILS 0.02 0.00 - 0.40 x10'3/uL 11/08/2024 11:05 AM CDT [facility] ABS. BASOPHILS 0.04 0.00 - 0.20 x10'3/uL 11/08/2024 11:05 AM CDT [facility] ABS. IMMATURE GRANULOCYTES 0.17(H) 0.00 - 0.03 x10'3/uL 11/08/2024 11:05 AM CDT [facility] ABS. NUCLEATED RBC'S 0.00 0.00 - 0.01 x10'3/uL 11/08/2024 11:05 AM CDT [facility] 11/08/2024 10:5 3 AM CDT us Conrad Moody MD LABORATORY Final Result Performing Organization Address [facility]/ZIP Co de Phone Number [facility] [place] [facility] [address] [place] [address], * (ABNORMAL) MAGNESIUM (11/08/2024 10:53 AM CDT) MAGNESIUM 1.2(L) 1.8 - 2.4 MG/DL 11/08/2024 11:42 AM CDT [facility] 11/08/2024 10:5 3 AM CDT us Conrad Moody MD LABORATORY Final Result Performing Organization Address City/[facility]/ZIP Co de Phone Number [facility] [place] [address], * LIPASE (11/08/2024 10:53 AM CDT) LIPASE 17 16 - 77 UNITS/L 11/08/2024 11:42 AM CDT [facility] [place] [facility] 11/08/2024 10:5 3 AM CDT Conrad Moody MD LABORATORY Final Result [facility] [address] [place] [address], * ETHANOL (11/08/2024 10:53 AM CDT) ALCOHOL S/P/B <0.003 <0.003 G/DL 11/08/2024 11:35 AM CDT [facility] [place] [facility] 11/08/2024 10:5 3 AM CDT Conrad Moody MD LABORATORY Final Result Performing Organization Address [facility] Co de Phone Number [facility] [address] [place] [id number], from Last 3 Months Additional Health Concerns Infection Onset Date Last Indicated C. difficile 11/08/2024 11/08/[address] [place] [address] Care Teams Academic Support Director Relationship Specialty Start Date End Date Non-Staff, Provider PCP - General UNKNOWN PHYSICIAN SPECIALTY 11/08/24
--- OUTSIDE RECORDS SUMMARY | 2024-11-24 16:42 | XMS_ITS | Clinical Summary ---
Author Organization [facility] Address [address] [place] [address] Phone Care Team Providers Care Customer Support Specialist Name Role Phone Joellen Shepherd APRN, WELFARE VISITOR Primary Care Provi jameel Allergies Active Allergy [...] Care Team Description 11/21/2024 Home Care Visit [address] [address] Elham Hitchcock OT TELEPHONE ENCOUNTER 11/21/2024 Home Care Visit [address] [address] Bettye Whitaker, RN TELEPHONE ENCOUNTER 11/16/2024 1:30 PM CDT Home Care Visit [address] [address] Keri Lopez, GLUING PRESSMAN GLUING PRESSMAN - HOME VISIT 11/16/2024 Home Care Visit [address] [address] Meg Cassidy, PT CASE COMMUNICATION 11/15/2024 2:30 PM CDT Home Care Visit [address] [address] Bettye Whitaker, RN SN - OASIS START OF CARE 11/15/2024 Plan of Care Documentation [address] [address] 11/14/2024 7:08 AM CDT - 11/14/2024 11:59 AM CDT [facility] [address] [place] [address] Andrei Yao, Hypertension Discharge Disposition: Discharged to home or Selfcare 11/14/2024 Travel 11/08/2024 8:15 PM CDT - 11/12/2024 12:26 PM CDT Hospital Encounter [facility] Med Surg [address] [place] [address] Sanjay Reed MD Sepsis (HCC) Discharge Disposition: Home Health Care [facility] 11/08/2024 Travel from Last 3 Months Family [...] a day. last drink 5 weeks ago [facility] [employer] Answer Date Recorded In the past 12 months has [employer], gas, oil, or water [employer] threatened to shut off services in your home? Patient declined 11/08/2024 Social Connection and Isolation Panel [NHANES] A nswer Date Recorded In a typical week, how many times do you talk on the phone with family, friends, or neighbors? Patient declined 11/08/2024 How often do you get togethe r with friends or relatives? Patient declined 11/08/2024 How often do you attend temple or rastafari serv ices? Patient declined 11/08/2024 Do you belong to any clubs o r organizations such as temple groups, unions, fraternal or athletic groups, or [...] medical care, and heating? Patient declined 11/08/2024 [facility] - Occupational [...] any time in the [facility], were you homeless or living in a [...] 11/25/2024 1:00 AM CDT Home Care Visit [address] [address] Bettye Whitaker, [place] 12/02/2024 1:00 AM CDT Home Care Visit [address] [address] Bettye Whitaker RN [place] 12/09/2024 1:00 AM CDT Home Care Visit [address] [address] Bettye Whitaker RN [place] 12/16/2024 1:00 AM CDT Home Care Visit [address] [address] Bettye Whitaker, [place] 12/23/2024 1:00 AM CDT Home Care Visit [address] [address] Bettye Whitaker RN [place] 12/30/2024 1:00 AM CDT Home Care Visit [address] [address] Bettye Whitaker RN [place] 01/06/2025 1:00 AM CDT Home Care Visit [address] [address] Bettye Whitaker, [place] 01/12/2025 1:00 AM CDT Appointment [facility] [address] [place] [address] Bettye Whitaker RN [place] Health Maintenance Due Date Last Done Comments [...] BY ABNORMAL RESULTS (11/14/2024 9:53 AM CDT) [facility] SPECIFIC GRAVITY 1.010 1.003 - 1.030 11/14/2024 10:51 AM CDT [facility] URINE PH 7.0 5.0 - 9.0 11/14/2024 10:51 AM CDT [facility] WBC ESTERASE 25 /ul(A) Negative 11/14/2024 10:51 AM CDT [facility] NITRITE Negative Negative 11/14/2024 10:51 AM CDT [facility] PROTEIN, RANDOM URINE 100 mg/dL(A) Negative 11/14/2024 10:51 AM CDT [facility] URINE GLUCOSE, QUAL Negative Negative 11/14/2024 10:51 AM CDT [facility] URINE KETONES Negative Negative 11/14/2024 10:51 AM CDT [facility] UROBILINOGEN Normal Normal mg/dL 11/14/2024 10:51 AM CDT [facility] URINE BLOOD 50 /uL(A) Negative billy/ul 11/14/2024 10:51 AM CDT [facility] URINALYSIS COLOR Yellow 11/15/19 10:51 AM CDT [facility] URINALYSIS CLARITY Clear 11/14/2024 10:51 AM CDT [facility] WBC (Urine) 0-5 Negative, 0-5 /hpf 11/14/2024 10:51 AM CDT [facility] URINE RBC'S 11-20(A) Negative, 0-2 /hpf 11/14/2024 10:51 AM CDT [facility] EPITHELIAL CELLS Small amount /lpf 2024 10:51 AM CDT [facility] BACTERIA, URINE Few(A) Negative /hpf 11/14/2024 10:51 AM CDT [facility] Urine (Indwelling Catheter) Non-Phlebotomy Collection / Unknown 11/14/2024 9:53 AM CDT 11/14/2024 10:27 AM CDT us Andrei Yao DO URINE ORDERABLES Final Result [facility] [address] [place] [address] * EKG 12 LEAD (11/14/2024 8:07 AM CDT) Ventricular Rate 99 BPM EXTERNAL EKG Atrial Rate 99 BPM EXTERNAL EKG P-R Interval 124 ms EXTERNAL EKG QRS Duration 92 ms EXTERNAL EKG Q-T Duration 376 ms EXTERNAL EKG QTC CALCULATION 482 ms EXTERNAL EKG P [place] 68 degrees EXTERNAL EKG R [place] 72 degrees EXTERNAL EKG T [place] 72 degrees EXTERNAL EKG 11/14/2024 8:07 AM CDT Impressions EXTERNAL EKG - 11/15/2024 4:45 PM CDT Normal sinus rhythm Possible Left atrial enlargement QTcB >= 480 msec Abnormal ECG No previous ECGs available Confirmed by MADELINE SANDOVAL ([id number]) on 11/15/2024 4:45:02 PM Narrative Procedure Note Madeline Sandoval MD - 11/15/2024 IMPRESSION: Normal sinus rhythm Possible Left atrial enlargement QTcB >= 480 msec Abnormal ECG No previous ECGs available Confirmed by MADELINE SANDOVAL ([id number]) on 11/15/2024 4:45:02 PM us Andrei Yao DO IMG ECG ORDERABLES Belia l Result Performing Organization Address City/[facility]/ZIP Co de Phone Number EXTERNAL EKG * TROPONIN I, HIGH SENSITIVITY (HSTRP) (11/14/2024 7:53 AM CDT) [facility] TROPONIN I, HIGH SENSITIVITY- ESP[place] 9 <=14 ng/L 11/14/2024 9:12 AM CDT [facility] Comment: High-sensitivity troponin I results are reported in ng/L making the result appear to be 1,000 times higher than the contemporary troponin I value which is reported in ng/ml. Results from [place]. Blood Venipuncture / Unknown 11/14/2024 7:53 AM CDT 11/14/2024 8:40 AM CDT us Andrei Yao DO CHEMISTRY ORDERABLES Fi nal Result Performing Organization Address City/[facility]/ZIP Co de Phone Number [facility] [address] [place] [address] * (ABNORMAL) Manual Differential (11/14/2024 7:53 AM CDT) BANDS % 2.0 % 11/14/2024 9:22 AM CDT [facility] NEUTROPHILS % 73.0 47.0 - 73.0 % 11/14/2024 9:22 AM CDT [facility] LYMPHOCYTES % 19.0 18.0 - 42.0 % 11/14/2024 9:22 AM CDT [facility] MONOCYTES % 3.0(L) 4.0 - 12.0 % 11/14/2024 9:22 AM CDT [facility] EOSINOPHILS % 3.0 0.0 - 5.0 % 11/14/2024 9:22 AM CDT [facility] NEUTROPHILS ABSOLUTE 7.62 1.60 - 7.70 10(3)/mcL 11/14/2024 9:22 AM CDT [facility] LYMPHOCYTES ABSOLUTE 1.93 1.30 - 3.20 10(3)/[facility] 11/14/2024 9:22 AM CDT [facility] MONOCYTES ABSOLUTE 0.30 0.20 - 1.00 10(3)/mcL 11/14/2024 9:22 AM CDT [facility] EOSINOPHILS ABSOLUTE 0.30 0.00 - 0.40 10(3)/mcL 11/14/2024 9:22 AM CDT [facility] REACTIVE LYMPHOCYTES 1 11/14/2024 9:22 AM CDT [facility] WBC MORPH STATUS Normal 11/15/19 9:22 AM CDT [facility] RBC MORPH STATUS Normal 11/15/19 9:22 AM CDT [facility] PLATELET STATUS Normal 9:22 AM CDT [facility] Blood Venipuncture / Unknown 11/14/2024 7:53 AM CDT 11/14/2024 8:40 AM CDT us Andrei Yao DO HEMATOLOGY ORDERABLES F inal Result [facility] [address] [place] [address] * (ABNORMAL) CBC with Auto Differential (11/14/2024 7:53 AM CDT) Only the most recent of6 resultswithin the time period is included. WBC 10.16 4.00 - 12.00 10(3)/mcL 11/14/2024 9:22 AM CDT [facility] RBC 3.64(L) 3.80 - 5.30 10(6)/mcL 11/14/2024 9:22 AM CDT [facility] HEMOGLOBIN (HGB) 10.8(L) 12.0 - 15.8 g/dL 11/14/2024 9:22 AM CDT [facility] HEMATOCRIT (HCT) 32.9(L) 36.0 - 47.0 % 11/14/2024 9:22 AM CDT [facility] MCV 90.4 82.0 - 96.0 fL 11/14/2024 9:22 AM CDT [facility] MCH 29.7 26.0 - 34.0 pg 11/14/2024 9:22 AM CDT [facility] MCHC 32.8 31.0 - 36.0 g/dL 11/14/2024 9:22 AM CDT [facility] PLATELET COUNT 578(H) 140 - 440 10(3)/mcL 11/14/2024 9:22 AM CDT [facility] RDW 13.3 11.8 - 15.5 % 11/14/2024 9:22 AM CDT [facility] MPV 10.6 9.7 - 12.4 fL 11/14/2024 9:22 AM CDT [facility] NRBC PER 100 WBC 0 11/14/2024 9:22 AM CDT [facility] RESULTS ARE CONSISTENT WITH PERIPHERAL SMEAR REVIEW Yes 11/14/2024 9:22 AM CDT [facility] RBC MORPHOLOGY CONSISTENT WITH INDICES Yes 11/14/2024 9:22 AM CDT [facility] Blood Venipuncture / Unknown 11/14/2024 7:53 AM CDT 11/14/2024 8:40 AM CDT us Andrei Houston Maximilian DO HEMATOLOGY ORDERABLES F inal Result [facility] [address] [place] [address] * CMP (Comprehensive Metabolic Panel) (11/14/2024 7:53 AM CDT) Only the most recent of2 resultswithin the time period is included. SODIUM 141 136 - 145 mmol/L 11/14/2024 9:07 AM CDT [facility] POTASSIUM 3.5 3.5 - 5.1 mmol/L 11/14/2024 9:07 AM CDT [facility] CHLORIDE 106 98 - 107 mmol/L 11/14/2024 9:07 AM CDT [facility] CO2, VENOUS 25 22 - 30 mmol/L 11/14/2024 9:07 AM CDT [facility] ANION GAP 13.5 <18.0 mmol/L 11/14/2024 9:07 AM CDT [facility] GLUCOSE 97 70 - 99 mg/dL 11/14/2024 9:07 AM CDT [facility] BUN 17 5 - 18 mg/dL 11/14/2024 9:07 AM CDT [facility] CREATININE, BLOOD 0.85 0.60 - 1.00 mg/dL 11/14/2024 9:07 AM CDT [facility] BUN/CREATININE RATIO 20 12 - 20 ratio 11/14/2024 9:07 AM CDT [facility] TOTAL PROTEIN 7.5 6.0 - 8.0 g/dL 11/14/2024 9:07 AM CDT [facility] ALBUMIN 3.7 3.5 - 5.0 g/dL 11/14/2024 9:07 AM CDT [facility] A/G RATIO 1.0 1.0 - 2.2 11/14/2024 9:07 AM CDT [facility] CALCIUM 9.0 8.7 - 10.5 mg/dL 11/14/2024 9:07 AM CDT [facility] T BILI 0.2 0.2 - 1.2 mg/dL 11/14/2024 9:07 AM CDT [facility] SGOT (AST) 23 <43 U/L 11/14/2024 9:07 AM CDT [facility] SGPT (ALT) 18 <56 U/L 11/14/2024 9:07 AM CDT [facility] ALKALINE PHOSPHATASE 83 40 - 150 U/L 11/14/2024 9:07 AM CDT [facility] GFR, ESTIMATED >60 >=60 11/14/2024 9:07 AM CDT [facility] Comment: Creatinine Clearance is the preferred criteria for selecting drug dose adjustments in renally impaired patients. The GFR is provided as additional pertinent clinical information. GFR is reported in mL/min/1.73 sq m. Calculation based on the Chronic Kidney Disease Epidemiology Collaboration (CKD- EPI) equation refit without adjustment for race. GFR, EST. >60 >=60 025 9:07 AM CDT [facility] GFR, EST. NONAFRICAN >60 >=60 11/14/2024 9:07 AM CDT [facility] Blood Venipuncture / Unknown 11/14/2024 7:53 AM CDT 11/14/2024 8:40 AM CDT us Andrei Yao DO CHEMISTRY ORDERABLES Fi nal Result [facility] [address] [place] [address] * EKG SCAN (11/14/2024 12:00 AM CDT) 11/14/2024 us Provider Scan IMG ECG ORDERABLES Final Result RESULTING AGENCY * (ABNORMAL) BMP with Ca, Total (11/12/2024 4:23 AM CDT) Only the most recent of3 resultswithin the time period is included. SODIUM 141 136 - 145 mmol/L 11/12/2024 5:58 AM CDT [facility] POTASSIUM 3.6 3.5 - 5.1 mmol/L 11/12/2024 5:58 AM CDT [facility] CHLORIDE 109(H) 98 - 107 mmol/L 11/12/2024 5:58 AM CDT [facility] CO2, VENOUS 23 22 - 30 mmol/L 11/12/2024 5:58 AM CDT [facility] ANION GAP 12.6 <18.0 mmol/L 11/12/2024 5:58 AM CDT [facility] GLUCOSE 77 70 - 99 mg/dL 11/12/2024 5:58 AM CDT [facility] BUN 12 5 - 18 mg/dL 11/12/2024 5:58 AM CDT [facility] CREATININE, BLOOD 0.95 0.60 - 1.00 mg/dL 11/12/2024 5:58 AM CDT [facility] BUN/CREATININE RATIO 13 12 - 20 ratio 11/12/2024 5:58 AM CDT [facility] CALCIUM 8.4(L) 8.7 - 10.5 mg/dL 11/12/2024 5:58 AM CDT [facility] GFR, ESTIMATED >60 >=60 11/12/2024 5:58 AM CDT [facility] Comment: Creatinine Clearance is the preferred criteria for selecting drug dose adjustments in renally impaired patients. The GFR is provided as additional pertinent clinical information. GFR is reported in mL/min/1.73 sq m. Calculation based on the Chronic Kidney Disease Epidemiology Collaboration (CKD- EPI) equation refit without adjustment for race. GFR, EST. >60 >=60 025 5:58 AM CDT [facility] GFR, EST. NONAFRICAN >60 >=60 11/12/2024 5:58 AM CDT [facility] Blood Venipuncture / Unknown 11/12/2024 4:23 AM CDT 11/12/2024 5:34 AM CDT us Amy Villeda PRODUCTION SERVICE MANAGER, WELFARE VISITOR CHEMISTRY ORDERABLES Final Result Performing Organization Address City/[facility]/ZIP Co de Phone Number [facility] [address] [place] [address] * Culture, Blood (11/11/2024 5:38 PM CDT) Only the most recent of2 resultswithin the time period is included. CULTURE RESULTS NO GROWTH WITHIN 5 DAYS, FINAL RESULT 11/16/2024 6:01 PM CDT [facility] Culture (Peripheral Vein) Venipuncture / Unknown 11/11/2024 5:38 PM CDT 11/11/2024 5:40 PM CDT us Sanjay Reed MD MICROBIOLOGY - GENERAL O RDERABLES Final Result Performing Organization Address [facility] Co de Phone Number [facility] [address] [place] [address], [place] * RHYTHM STRIP (2024 12:00 AM [...] mm. No pericholecystic fluid. No positive sonographic Coward sign reported. BILIARY: There is no intrahepatic or extrahepatic biliary ductal dilatation. Common bile duct measures 0.2 cm in diameter. OTHER: No other significant findings. THIS IS AN ELECTRONICALLY VERIFIED FINAL REPORT 11/09/2024 1:54 PM - Electronically signed by Sparkle Lelbanc M.D. FT: FT Report ID: [id number] Reading Location: [id number] Procedure Note Sparkle Zelaya MD - 11/09/2024 [...] mm. No pericholecystic fluid. No positive sonographic Coward sign reported. BILIARY: There is no intrahepatic or extrahepatic biliary ductal dilatation. Common bile duct measures 0.2 cm in diameter. OTHER: No other significant findings. THIS IS AN ELECTRONICALLY VERIFIED FINAL REPORT 11/09/2024 1:54 PM - Electronically signed by Sparkle Leblanc M.D. FT: FT Report ID: [id number] Reading Location: [id number] IMPRESSION: Biliary sludge and borderline gallbladder wall thickening. No pericholecystic fluid or positive sonographic Fernando's sign. Findings are equivocal for acute cholecystitis. If there is persistent clinical concern, HIDA scan may be performed. us Mike Parra MD [facility] [place] ORDERABLES Fin al Result * (ABNORMAL) Renal Function Panel (11/09/2024 4:23 AM CDT) SODIUM 138 136 - 145 mmol/L 11/09/2024 7:21 AM CDT [facility] POTASSIUM 3.3(L) 3.5 - 5.1 mmol/L 11/09/2024 7:21 AM CDT [facility] CHLORIDE 107 98 - 107 mmol/L 11/09/2024 7:21 AM CDT [facility] CO2, VENOUS 20(L) 22 - 30 mmol/L 11/09/2024 7:21 AM CDT [facility] ANION GAP 14.3 <18.0 mmol/L 11/09/2024 7:21 AM CDT [facility] GLUCOSE 85 70 - 99 mg/dL 11/09/2024 7:21 AM CDT [facility] BUN 37(H) 5 - 18 mg/dL 11/09/2024 7:21 AM CDT [facility] CREATININE, BLOOD 2.43(H) 0.60 - 1.00 mg/dL 11/09/2024 7:21 AM CDT [facility] BUN/CREATININE RATIO 15 12 - 20 ratio 11/09/2024 7:21 AM CDT [facility] ALBUMIN 3.0(L) 3.5 - 5.0 g/dL 11/09/2024 7:21 AM CDT [facility] CALCIUM 8.3(L) 8.7 - 10.5 mg/dL 11/09/2024 7:21 AM CDT [facility] PHOSPHORUS 4.4 2.5 - 4.5 mg/dL 11/09/2024 7:21 AM CDT [facility] GFR, ESTIMATED 24(L) >=60 11/09/2024 7:21 AM CDT [facility] Comment: Creatinine Clearance is the preferred criteria for selecting drug dose adjustments in renally impaired patients. The GFR is provided as additional pertinent clinical information. GFR is reported in mL/min/1.73 sq m. Calculation based on the Chronic Kidney Disease Epidemiology Collaboration (CKD- EPI) equation refit without adjustment for race. GFR, EST. 26(L) >=60 025 7:21 AM CDT [facility] GFR, EST. NONAFRICAN 21(L) >=60 11/09/2024 7:21 AM CDT [facility] Blood Venipuncture / Unknown 11/09/2024 4:23 AM CDT 11/09/2024 5:57 AM CDT us Gia Walton PRODUCTION SERVICE MANAGER, WELFARE VISITOR CHEMISTRY ORDERABLES Belia l Result [facility] [address] [place] [address] * Magnesium (Mg) (11/09/2024 4:23 AM CDT) Only the most recent of2 resultswithin the time period is included. MAGNESIUM 2.6 1.6 - 2.6 mg/dL 11/09/2024 7:21 AM CDT [facility] Blood Venipuncture / Unknown 11/09/2024 4:23 AM CDT 11/09/2024 5:57 AM CDT us Gia Walton PRODUCTION SERVICE MANAGER, JAMAL CHEMISTRY ORDERABLES Belia nazanin Result [facility] [address] [place] [address] * CT RENAL STONE STUDY (ABDOMEN AND [...] by Liv Lauren M.D. SN: Report ID: [id number] Reading Location: [id number] Procedure Note Liv Lauren MD - 11/09/2024 [...] No visualized stones. No hydronephrosis or hydroureter. Daneil catheter is seen in place with complete [...] by Liv Lauren M.D. SN: Report ID: [id number] Reading Location: [id number] IMPRESSION: No acute intra-abdominal or pelvic abnormality [...] ) Negative, Invalid 11/09/2024 1:37 AM CDT [facility] Comment:Please see Reflex C. diff Quik Chek Complete order results Other STOOL SPECIMEN / Unknown Non-Phlebotomy Collection / Unknown 11/08/2024 11:25 PM CDT 11/08/2024 11:49 PM CDT us Gia Walton APRN, CNP MICROBIOLOGY - GENERAL OR DERABLES Final Result [facility] [address] [place] [address] * REFLEX C DIFF QUIK CHEK COMPLETE (11/08/2024 11:25 PM CDT) TOXIN A/B Negative Negative, INVALID, Not Applicable 11/09/2024 1:37 AM CDT [facility] Comment:These results are mullen ggestive [...] MICROBIOLOGY - GENERAL OR DERABLES Final Result [facility] [address] [place] [address] * Culture, Stool (11/08/2024 11:25 PM CDT) Pathologist [facility] CULTURE RESULTS NEGATIVE FOR CAMPYLOBACTER ANTIGEN 2024 3:41 PM CDT [facility] CULTURE RESULTS SHIGA TOXIN 1 AND SHIGA TOXIN 2 NOT DETECTED 2024 3:41 PM CDT [facility] CULTURE RESULTS Heavy Mixed genesis 2024 3:41 PM CDT [facility] Culture STOOL SPECIMEN / Unknown Non-Phlebotomy Collection / Unknown 11/08/2024 11:25 PM CDT 11/08/2024 11:49 PM CDT Narrative [facility] - 2024 3:41 PM CDT Unless stated above as an isolate, no Salmonella, Shigella, E Coli O157, Aeromonas, or Pleisiomonas species isolated us Gia Walton APRN, WELFARE VISITOR MICROBIOLOGY - GENERAL OR DERABLES Final Result [facility] [address] [place] [address], * Ur Sodium (Na) Random (11/08/2024 11:24 PM CDT) SODIUM, RANDOM URINE 42 mmol/L 11/09/2024 2:45 PM CDT [facility] Comment:No reference range h as been established. Consider Clinical Correlation. Urine Non-Phlebotomy Collection / Unknown 11/08/2024 11:24 PM CDT 11/08/2024 11:48 PM CDT us Gia Walton APRN, WELFARE VISITOR URINE ORDERABLES Final Re sult Performing Organization Address [facility]/ZIP Co de Phone Number [facility] [address] [place] [address], [place] * Ur Potassium (K) Random (11/08/2024 11:24 PM CDT) UR POTASSIUM, RANDOM 21 mmol/L 11/09/2024 2:45 PM CDT [facility] Comment:No reference range h as been established. Consider Clinical Correlation. Urine Non-Phlebotomy Collection / Unknown 11/08/2024 11:24 PM CDT 11/08/2024 11:48 PM CDT us Gia Walton APRN, WELFARE VISITOR URINE ORDERABLES Final Re sult Performing Organization Address [facility] Co de Phone Number [facility] [address] [place] [address], [place] * Ur Osmolality (11/08/2024 11:24 PM CDT) OSMOLALITY, URINE 271 50 - 1,400 mOsm/kg 11/09/2024 3:27 PM CDT [facility] Urine Non-Phlebotomy Collection / Unknown 11/08/2024 11:24 PM CDT 11/08/2024 11:48 PM CDT us Gia Walotn APRN, WELFARE VISITOR URINE ORDERABLES Final Re sult Performing Organization Address City/[facility]/ZIP Co de Phone Number [facility] [address] [place] [address], [place] * Ur Chloride (Cl) Random (11/08/2024 11:24 PM CDT) [facility] CHLORIDE, RANDOM URINE 29 mmol/L 11/09/2024 2:45 PM CDT [facility] Comment:No reference range h as been established. Consider Clinical Correlation. Urine Non-Phlebotomy Collection / Unknown 11/08/2024 11:24 PM CDT 11/08/2024 11:48 PM CDT us Gia Walton APRN, WELFARE VISITOR URINE ORDERABLES Final Re sult Performing Organization Address City/[facility]/ZIP Co de Phone Number [facility] [address] [place] [address], [place] * (ABNORMAL) IRON,TRANSFERN,CALC.TIBC,%SAT (11/08/2024 10:05 PM CDT) [facility] IRON 9(L) 25 - 156 mcg/dL 11/08/2024 11:59 PM CDT [facility] TRANSFERRIN 125(L) 180 - 382 mg/dL 11/08/2024 11:59 PM CDT [facility] TIBC, CALCULATED 156(L) 265 - 497 mcg/dL 11/08/2024 11:59 PM CDT [facility] % SATURATION * 6(L) 15 - 62 % 11/08/2024 11:59 PM CDT [facility] Blood Venipuncture / Unknown 11/08/2024 10:05 PM CDT 11/08/2024 10:14 PM CDT Gia Walton APRN, WELFARE VISITOR CHEMISTRY ORDERABLES Belia l Result [facility] [address] [place] [address] * Vitamin B12 (11/08/2024 10:05 PM CDT) VITAMIN B12 238 213 - 816 pg/mL 11/09/2024 12:29 AM CDT [facility] Blood Venipuncture / Unknown 11/08/2024 10:05 PM CDT 11/08/2024 10:14 PM CDT us Gia Walton APRN, WELFARE VISITOR CHEMISTRY ORDERABLES Belia l Result [facility] [address] [place] [address] * Osmolality Serum (11/08/2024 10:05 PM CDT) OSMOLALITY 295 275 - 295 mOsm/kg 11/09/2024 2:51 PM CDT [facility] Blood Venipuncture / Unknown 11/08/2024 10:05 PM CDT 11/08/2024 10:14 PM CDT Narrative [facility] - 11/09/2024 2:51 PM CDT Result is an averaged value us Gia Walton APRN, WELFARE VISITOR CHEMISTRY ORDERABLES Belia l Result Performing Organization Address City/[facility]/ZIP Co de Phone Number [facility] [address] [place] [address], [place] * Lactic Acid (Lactate) (11/08/2024 10:05 PM CDT) LACTIC ACID 0.9 0.7 - 2.0 mmol/L 11/08/2024 11:18 PM CDT [facility] Blood Venipuncture / Unknown 11/08/2024 10:05 PM CDT 11/08/2024 10:13 PM CDT us Gia Walton APRN, WELFARE VISITOR CHEMISTRY ORDERABLES Belia l Result [facility] [address] [place] [address] * FOLIC ACID (FOLATE) (11/08/2024 10:05 PM CDT) FOLATE 11.1 7.0 - 31.4 ng/mL 11/09/2024 12:29 AM CDT [facility] Blood Venipuncture / Unknown 11/08/2024 10:05 PM CDT 11/08/2024 10:14 PM CDT us Gia Walton APRN, WELFARE VISITOR CHEMISTRY ORDERABLES Belia l Result Performing Organization Address [facility]/ZIP Co de Phone Number [facility] [place] [address] * (ABNORMAL) Ferritin (11/08/2024 10:05 PM CDT) FERRITIN 815(H) 5 - 204 ng/mL 11/09/2024 12:29 AM CDT [facility] Blood Venipuncture / Unknown 11/08/2024 10:05 PM CDT 11/08/2024 10:14 PM CDT us Gia Walton APRN, WELFARE VISITOR CHEMISTRY ORDERABLES Belia l Result Performing Organization Address [facility] Co de Phone Number [facility] [place] [address] * US - ABDOMEN/PELVIS (10/21/2024 12:00 AM CDT) Only the most recent of3 resultswithin the time period is included. 10/21/2024 us Provider Scan IMG US ORDERABLES Final Result Performing Organization Address City/[facility]/ZIP Co de Phone Number SCAN * CT [...] Documents on File Type Date Recorded Patient Production Control Clerk Expl anation Power of Microfilmer for Health Care 2024 3:05 PM POA-, 10/31/2024 * Full Code (Latest Code Status on File) Date Activated Date Inactivated Comments 11/08/2024 9:33 PM CPR-Full Treatm ent: FULL ARREST: Attempt Resuscitation/CPR wit intubation and mechanical ventilation. PRE-ARREST: Use entire range of life support measures to stabilize the patient. Care Teams Customer Support Specialist Relationship Specialty Start Date End Date Joellen Shepherd, PRODUCTION SERVICE MANAGER, WELFARE VISITOR [address] [place] [address] PCP - General Advanced Practice Nurse 11/09/24
--- OUTSIDE RECORDS SUMMARY | 2024-11-24 16:42 | XMS_ITS | Encounter Summary ---
Author Organization [facility] Address [address] [place] [address] Phone Care Team Providers Care Clothes Separator Name Role Phone Joellen Shepherd APRN, MAINTENANCE INSPECTOR Primary Care Provi jameel Reason for Visit * Auth/Cert (Routine) Specialty Diagnoses / Procedures Referred By Contac t Referred To Contact Referral ID Status Reason Start Date Expiration Date Visits Re quested Visits Authorized [id number] Encounter Details Date Type Department Care Team (Late st Contact Info) Description 11/21/[facility]24 [facility] [address] [place] [address] Bettye Whitaker, RN [place] TELEPHONE ENCOUNTER Social History Tobacco Use Types Packs/Day Years Used Date Smoking Tobacco: Every Day Cigarettes 1 26.3 Started: 1998 Passive Smoke Exposure: Current Alcohol Use Standard Drinks/Week Comments Not Currently 0 (1 standard drink = 0.6 oz pure alcohol) Around a pint a day. last drink 5 weeks ago [facility] Utilities Answer Date Recorded In the past 12 months has [employer], gas, oil, or water [employer] threatened to shut off services in your home? Patient declined 11/08/2024 Social Connection and Isolation Panel [NHANES] A nswer Date Recorded In a typical week, how many times do you talk on the phone with family, friends, or neighbors? Patient declined 11/08/2024 How often do you get togethe r with friends or relatives? Patient declined 11/08/2024 How often do you attend catholic or mandaeism serv ices? Patient declined 11/08/2024 Do you belong to any clubs o r organizations such as catholic groups, unions, fraternal or athletic groups, or [...] medical care, and heating? Patient declined 11/08/2024 [facility] - Occupational Stress Questionnaire Answer Date Recorded [...] any time in the past 12 m [facility], were you homeless or living in a [...] 11/25/2024 1:00 AM CDT Home Care Visit [address] [address] Bettye Whitaker RN [place] 12/02/2024 1:00 AM CDT Home Care Visit [address] [address] Bettye Whitaker RN [place] 12/09/2024 1:00 AM CDT Home Care Visit [address] [address] Bettye Whitaker RN [place] 12/16/2024 1:00 AM CDT Home Care Visit [address] [address] Bettye Whitaker RN [place] 12/23/2024 1:00 AM CDT Home Care Visit [address] [address] Bettye Whitaker, [place] 12/30/2024 1:00 AM CDT Home Care Visit [address] [address] Bettye Whitaker RN [place] 01/06/2025 1:00 AM CDT Home Care Visit [address] [address] Bettye Whitaker, [place] 01/12/2025 1:00 AM CDT Appointment [facility] [address] [place] [address] Bettye Whitaker RN [place] documented as of this encounter Visit Diagnoses Not on filedocumented in this encounter Additional Health Concerns Infection Onset Date Last Indicated Resolved Time C. difficile 11/08/2024 11/08/2024 documented as of this encounter Care Teams Clothes Separator Relationship Specialty Start Date End Date Joellen Shepherd, SHUTTLE SPOTTER, MAINTENANCE INSPECTOR [address] [place] [address] PCP - General Advanced Practice Nurse 11/09/24 documented as of this encounter
[2024-11-24] MEDS: SODIUM CHLORIDE 0.9% IV 1,000 ML 999 ML IV CONT (17:07)
[2024-11-24 17:12] LABS: Hematocrit 35.2 % (35.0-49.0); Hemoglobin 11.4 g/dL (12.0-15.0); Mean Corpuscular HGB Conc 32.4 g/dL (32-36); Mean Corpuscular Hemoglobin 29.8 pg (27.0-31.0); Mean Corpuscular Volume 92.1 fL (78.0-102.0); Mean Platelet Volume 10.5 fl (9.2-11.8); Platelet Count Result 355 K/mm3 (150-420); Red Blood Count 3.82 M/mm3 (4.20-5.40); Red Cell Distribution Width 13.8 % (11.6-14.4)
[2024-11-24 17:13] LABS: Add Urine Microscopic? YES; Appearance Urine Clear (Clear); Bilirubin Urine Negative (Negative); Blood Urine 1+ (Negative); Color Urine Yellow (Yellow); Glucose Urine UA Negative (Negative); Ketones Urine Negative (Negative); Leukocyte Esterase Ur 3+ LEU/UL (Negative); Nitrate Urine Negative (Negative); Protein Urine 2+ (Negative); Urobilinogen Urine 0.2 mg/dL (0.2-1.0); pH Urine 7.5 (5.0-8.0)
[2024-11-24 17:16] LABS: White Blood Count 20.3 K/mm3 (4.8-10.8)
[2024-11-24 17:21] LABS: Bacteria Urine 3+ /hpf; Squamous Epithelial Cell Urine Rare /hpf (Few); WBC Urine >100 /hpf (0-3)
[2024-11-24 17:27] LABS: Partial Thromboplastin Time 29.3 Sec (23.9-30.70); Prothrombin Time 11.5 Seconds (9.50-12.1)
[2024-11-24 17:31] LABS: Band Neutrophils Percent 1 % (0-6); Lymphocytes Absolute Manual 1.62 K/mm3 (1.1-4.5); Lymphocytes Percent Manual 8 % (18-44); Monocytes Absolute Manual 2.03 K/mm3 (0.1-0.90); Monocytes Percent Manual 10 % (3-9); Neutrophils Absolute Manual 16.64 K/mm3 (1.7-7.2); Neutrophils Percent Manual 81 % (46-73); Platelet Estimate Adequate (Adequate); Total Cells Counted 100
[2024-11-24 17:32] LABS: Lactic Acid Reflex 3.4 mmol/L (0.4-2.0)
[2024-11-24 17:36] LABS: Alanine Aminotransferase 20 U/L (14-59); Albumin Level 3.5 g/dL (3.4-5.0); Alkaline Phosphatase 104 U/L (46-116); Anion Gap 11 mmol/L (4-12); Aspartate Amino Transferase 15 U/L (15-37); Bilirubin,Total 0.5 mg/dL (0.00-1.00); Blood Urea Nitrogen 24 mg/dL (7-18); Calcium 9.1 mg/dL (8.5-10.1); Carbon Dioxide 25 mmol/L (21-32); Chloride 99 mmol/L (98-108); Estimated CRCL calculation 22 ml/min; Estimated Glomerular Filt Rate 26; Glucose 99 mg/dL (70-99); NT Pro B Type Natriuretic Pept 6027 pg/mL (0-125); Osmolality Calculated 284 mOsm/kg (285-295); Potassium 4.3 mmol/L (3.5-5.1); Sodium 135 mmol/L (136-145); Total Protein 8.9 g/dL (6.4-8.2); Troponin I 21.3 ng/L (0.00-60.4)
[2024-11-24 17:37] LABS: Ethanol < 3 mg/dL (0-6)
[2024-11-24 17:39] LABS: Amphetamine Screen Urine Positive (Negative); Barbiturate Screen Urine Negative (Negative); Benzodiazepines Screen Urine Negative (Negative); Cannabinoid Screen Urine Negative (Negative); Cocaine Screen Urine Negative (Negative); Methadone Screen Urine Negative (Negative); Opiate Screen Urine Negative (Negative); Phencyclidine Screen Urine Negative (Negative)
[2024-11-24] MEDS: MORPHINE SULFATE (*CRX) 2 MG/ML INJ IV PUSH ×2 (17:39→22:45)
[2024-11-24 17:50] LABS: Influenza A QL RT-PCR Negative (Negative); Influenza B QL RT-PCR Negative (Negative); RSV RNA, RT-PCR Negative (Negative); SARS-CoV-2 RNA PCR Negative (Negative)
--- NOTE | 2024-11-24 18:56 | ED_ITS ---
HPI - Weakness General Chief complaint: Weakness Stated complaint: weakness Time Seen by Provider: 11/24/24 16:18 Source: patient Mode of arrival: ambulatory Limitations: no limitations History of Present Illness HPI Narrative: this is a 49-year-old female with a history of alcohol abuse has not had a drink in over 2 months currently on folic acid and recently discharged from [facility] with C diff and acute kidney injury. The patient also was admitted at [facility] with a hypertensive urgency and non STEMI with alcohol withdrawal. Patient was readmitted to [facility] and was treated for C diff. Patient just recently completed a course of vancomycin. Currently has a elevated temperature 101?. Vitals are stable otherwise blood pressure is 139/72 with a heart rate of 110 respiratory rate of 20 and O2 saturations 99%. Patient has been feeling weak and having chills for the last couple of days and did establish care with malia at Dr. Baez office and was sent over for further evaluation. Patient denies any diarrhea or constipation, with no nausea or vomiting patient does have some mild flank pain on the bilateral flanks with suprapubic tenderness with palpation. MD Complaint: generalized weakness Onset (ago): day(s) Severity: moderate Severity scale (1-10): 6 Related Data Home Medications ?Medication ?Instructions ?Recorded ?Confirmed ?Last Taken ?Type folic acid 1 mg tablet 1 mg PO DAILY 11/24/24 Unknown History hydroxyzine HCl 25 mg tablet 25 mg PO DAILY 11/24/24 Unknown History lisinopril 5 mg tablet 5 mg PO DAILY 11/24/24 Unknown History Allergies Allergy/AdvReac Type Severity Reaction Status Date / Time penicillin G Allergy Severe mouth and Verified 11/24/24 16:27 throat swell latex Allergy Intermediate Unknown Verified 11/24/24 16:27 levofloxacin (Levaquin) Allergy Intermediate Itching Verified 11/24/24 16:27 Iodinated Contrast Media Allergy Mild sneezing, Verified 11/24/24 16:27 stuffy head mupirocin Allergy Rash Verified 11/24/24 16:27 Sulfa (Sulfonamide AdvReac Mild Nausea and Verified 11/24/24 16:27 Antibiotics) Vomiting Review of Systems 2 Review of Systems: All systems reviewed & are unremarkable except as noted in HPI and below PMFSH Past Medical History Medical History Elevated liver enzymes Depression (11/08/15) Cellulitis of foot Nicotine dependence, cigarettes, with unspecified nicotine-induced disorders JANAE (generalized anxiety disorder) Hypertension Surgical History Surgical History History of endometrial ablation History of tonsillectomy and adenoidectomy Family History Family History Mother JANAE (generalized anxiety disorder) COPD (chronic obstructive pulmonary disease) Hypertension Father Hypertension Lung cancer Bone cancer Brain tumor Social History Social History Smoking packs per day: 1 Smoking cigarettes per day: 20.0 Years smoked: 26 Smoking pack-years: 26.00 Smoking status: Current every day smoker Tobacco type: cigarettes Second hand tobacco smoke exposure: Yes Additional smoking assessment comments: She has smoked 1 pack of cigarettes per day since age 18. Alcohol intake: current Drinks per week: 1 Substance use: former Substance use type: marijuana, crack/cocaine and methamphetamine Last use: 10/08/2024 Do You Feel Safe in your Home?: Yes Lack of Transportation: YES Lack of Food: Often True Current Housing: I Have Housing Concerned About Future Housing: No Difficulty Paying Gas/Electric Bills: YES Difficulty Paying for Meds: No Currently Unemployed: YES Education: Trade/Vocational Certificate Difficulty w/ Childcare or Family Care: No Living arrangements: alone Additional living arrangements comments: She is been since 2019. She has 2 children. Her daughter moved out when her and her daughter now lives with her grandparents. 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 Her parents are planning to moved to assisted living March 2022. Occupation/Education: unemployed Gender identity (if verbalized by the patient): Female Spiritual care concerns: No Exam 2 Const: General: no acute distress and ill appearing Nutritional Appearance: thin Orientation/consciousness: patient oriented x3 Limitations: no limitations HENMT: Head: normal to inspection Neck: Neck: normal visual inspection and no lymphadenopathy Chest: Chest palpation & inspection: normal inspection of the chest Resp: Effort & Inspection: normal respiratory effort Auscultation: clear to auscultation bilaterally Cardio: Rate: tachycardic Rhythm: regular rhythm GI: GI Palp: Yes Soft to palpation and Yes Tenderness to palpation present (GI) : General: Yes Bladder palpation abnormal ( Suprapubic tenderness with palpation) and Yes CVA tenderness Urinary Catheter: Urinary Catheter: patent and draining Back/Spine/Pelvis: Back: CVA tenderness Skin: General skin exam: normal color Rashes: no rashes Neuro: General: patient oriented x3, moves all extremities, no meningeal signs and no focal motor deficits Extrem: General: normal to inspection, no clubbing, cyanosis or edema and no pedal edema Course Course Emergency Course: patient had [place] a [place] [address], with a kidney creatinine of 2.01 which is elevated above her baseline with BUN of 24. Patient had a chest x-ray that showed no acute cardiopulmonary findings, EKG shows sinus tach at 1:[address] scan of abdomen and pelvis does show distended urinary bladder with some a kidney stone nonobstructing with no colitis. BNP was 6000, with a lactic acid of 3.4 urinalysis shows 3+ bacteria and urine drug screen was positive for amphetamines. Patient did receive IV fluids morphine 2mg for pain control Tylenol 1g for temperature of 101?. Patient started on Levaquin and will admit to hospitalist service. Vital Signs Vital signs: Vital Signs Temperature 37.2 C 11/24/24 16:22 Pulse Rate 110 H 11/24/24 16:22 Respiratory Rate 20 11/24/24 16:22 Blood Pressure 161/89 H 11/24/24 16:22 Pulse Oximetry 99 11/24/24 16:22 Oxygen Delivery Room Air 11/24/24 16:22 Temperature 38.6 C H 11/24/24 18:49 Pulse Rate 102 H 11/24/24 18:49 Respiratory Rate 18 11/24/24 18:49 Blood Pressure 139/72 11/24/24 18:49 Pulse Oximetry 97 11/24/24 18:49 Oxygen Delivery Room Air 11/24/24 18:49 MDM - Weakness Lab Data 11/24/24 17:04 11/24/24 17:04 Labs: Lab Results 11/24/24 Range/Units 17:04 WBC 20.3 H* (4.8-10.8) K/mm3 RBC 3.82 L (4.20-5.40) M/mm3 Hgb 11.4 L (12.0-15.0) g/dL Hct 35.2 (35.0-49.0) % MCV 92.1 (78.0-102.0) fL MCH 29.8 (27.0-31.0) pg MCHC 32.4 (32-36) g/dL RDW 13.8 (11.6-14.4) % Plt Count 355 (150-420) K/mm3 MPV 10.5 (9.2-11.8) fl Immature Gran % (Auto) Not Reportable Neut % (Auto) Not Reportable Lymph % (Auto) Not Reportable [place] % (Auto) Not Reportable Eos % (Auto) Not Reportable Baso % (Auto) Not Reportable Lymph # (Auto) Not Reportable [place] # (Auto) Not Reportable Eos # (Auto) Not Reportable Baso # (Auto) Not Reportable Abs Immat Gran (auto) Not Reportable Absolute Neuts (auto) Not Reportable Absolute Nucleated RBC Not Reportable Total Counted 100 Neutrophils % (Manual) 81 H (46-73) % Band Neutrophils % 1 (0-6) % Lymphocytes % (Manual) 8 L (18-44) % Monocytes % (Manual) 10 H (3-9) % Nucleated RBC % Not Reportable Abs Neuts (Manual) 16.64 H (1.7-7.2) K/mm3 Abs Lymphs (Manual) 1.62 (1.1-4.5) K/mm3 Abs Monocytes (Manual) 2.03 H (0.1-0.90) K/mm3 Platelet Estimate Adequate (Adequate) Schistocytes Not Reportable PT 11.5 (9.50-12.1) Seconds INR 1.0 APTT 29.3 (23.9-30.70) Sec Sodium 135 L (136-145) mmol/L Potassium 4.3 (3.5-5.1) mmol/L Chloride 99 (98-108) mmol/L Carbon Dioxide 25 (21-32) mmol/L Anion Gap 11 (4-12) mmol/L BUN 24 H (7-18) mg/dL Creatinine 2.01 H (0.55-1.02) mg/dL Estim Creat Clear Calc 22 ml/min Estimated GFR 26 L (59 - ) Glucose 99 (70-99) mg/dL Calculated Osmolality 284 L (285-295) mOsm/kg Lactic Acid 3.4 H (0.4-2.0) mmol/L Calcium 9.1 (8.5-10.1) mg/dL Total Bilirubin 0.5 (0.00-1.00) mg/dL AST 15 (15-37) U/L ALT 20 (14-59) U/L Alkaline Phosphatase 104 (46-116) U/L Troponin I 21.3 (0.00-60.4) ng/L NT-Pro-B Natriuret Pep 6027 H (0-125) pg/mL Total Protein 8.9 H (6.4-8.2) g/dL Albumin 3.5 (3.4-5.0) g/dL Urine Color Yellow (Yellow) Urine Appearance Clear (Clear) Urine pH 7.5 (5.0-8.0) Ur Specific [place] 1.020 (1.010-1.020) Urine Protein 2+ H (Negative) Urine Glucose (UA) Negative (Negative) Urine Ketones Negative (Negative) Ur Blood (Man) 1+ H (Negative) Urine Nitrate Negative (Negative) Urine Bilirubin Negative (Negative) Urine Urobilinogen 0.2 (0.2-1.0) mg/dL Leukocyte Esterase Rfl 3+ H (Negative) VIVIEN/UL Urine RBC 3-5 H (0-2) /hpf Urine WBC >100 (0-3) /hpf Ur Squamous Epith Cells Rare (Few) /hpf Urine Bacteria 3+ H (None) /hpf Urine Opiates Screen Negative (Negative) Urine Methadone Screen Negative (Negative) Ur Barbiturates Screen Negative (Negative) Ur Phencyclidine Scrn Negative (Negative) Ur Amphetamine Screen Positive A (Negative) U Benzodiazepines Scrn Negative (Negative) Urine Cocaine Screen Negative (Negative) U Cannabinoids Screen Negative (Negative) Ethyl Alcohol < 3 (0-6) mg/dL Influenza A (RT-PCR) Negative (Negative) Influenza B (RT-PCR) Negative (Negative) RSV (RT-PCR) Negative (Negative) SARS-CoV-2 RNA (RT-PCR) Negative (Negative) Critical Care Time Critical Care Time Critical Care Time: No Discharge Plan Discharge Clinical Impression: Weakness generalized, Pyelonephritis UTI (urinary tract infection) Qualifiers: Urinary tract infection type: site unspecified Hematuria presence: without hematuria Qualified Code(s): N39.0 - Urinary tract infection, site not specified Patient Disposition: Acute Care Hospital Condition: Guarded Prognosis Patient Language: Russian Prescriptions: No Action folic acid 1 mg tablet 1 mg PO DAILY hydroxyzine HCl 25 mg tablet 25 mg PO DAILY lisinopril 5 mg tablet 5 mg PO DAILY albuterol sulfate 90 mcg/actuation HFA aerosol inhaler 90 mcg inhalation Q4-6H PRN (Reason: Shortness Of Breath Or Wheezing) Qty: 6.7 0RF psyllium husk [Metamucil] 0.4 gram capsule 0.4 g PO DAILY PRN (Reason: loose stools) Qty: 30 0RF nystatin 100,000 unit/gram cream 1 applic topical BID Qty: 30 1RF Rx Instructions: Apply to rash Follow-up/Referrals: Malia Shepherd NP [Primary Care Provider] - Time of Disposition: 19:02
[2024-11-24] MEDS: ACETAMINOPHEN 500 MG TABLET 1000 MG PO (18:59)
[2024-11-24] MEDS: levoFLOXacin 500 MG TABLET PO (19:07)
[2024-11-24 19:08] LABS: Reflex Lactic Acid Yes or No Add Lactic
--- NOTE | 2024-11-24 19:45 | ADMGEN ---
This patient, Elham Bennett, was admitted to 2nd Floor Room 206-1. Patient/family oriented to hospital policies and general routines including ID bracelet, bed and alarms, visiting hours, pain management, procedures, bathroom and other care routines, personal items, smoking policy, room service/diet, and visiting hours. Information on how to activate the Rapid Response Team has been discussed. Patient/Family are encouraged to report perceived risks to care and to ask questions if they do not understand what they are told or what they should do.
[2024-11-24] MEDS: LORazepam INJ (*CRX) 2 MG/ML VIAL 0.5 MG IV PUSH (21:09)
[2024-11-24] MEDS: NICOTINE (*PBKC) 21 MG PATCH 1 PATCH TOPICAL (21:10)
[2024-11-24] MEDS: SODIUM CHLORIDE 0.9% IV 1,000 ML 100 ML IV CONT (21:10)
[2024-11-25] VITALS: BP 128/67; PULSE 99; RESP 17; TEMP 36.8; O2SAT 95
[2024-11-25] MEDS: MORPHINE SULFATE (*CRX) 2 MG/ML INJ IV PUSH (05:17)
[2024-11-25 05:44] LABS: Basophils Absolute Auto 0.03 K/mm3 (0.00-0.10); Basophils Percent Auto 0.2 % (0.0-1.0); Hematocrit 29.1 % (35.0-49.0); Hemoglobin 9.1 g/dL (12.0-15.0); Immature Granulocyte Absolute 0.13 K/mm3 (0.00-0.00); Immature Granulocyte Percent A 0.7 % (0.0-0.0); Lymphocytes Absolute Auto 1.03 K/mm3 (1.10-4.50); Lymphocytes Percent Auto 5.6 % (18.0-42.0); Mean Corpuscular HGB Conc 31.3 g/dL (32-36); Mean Corpuscular Volume 92.7 fL (78.0-102.0); Mean Platelet Volume 10.7 fl (9.2-11.8); Neutrophils Absolute Auto 16.09 K/mm3 (1.70-7.20); Neutrophils Percent Auto 87.5 % (50.0-70.0); Platelet Count Result 319 K/mm3 (150-420); Red Blood Count 3.14 M/mm3 (4.20-5.40); Red Cell Distribution Width 14.1 % (11.6-14.4); White Blood Count 18.4 K/mm3 (4.8-10.8)
[2024-11-25 05:59] LABS: Lactic Acid Reflex 1.9 mmol/L (0.4-2.0)
[2024-11-25 06:06] LABS: Alanine Aminotransferase 18 U/L (14-59); Albumin Level 2.7 g/dL (3.4-5.0); Alkaline Phosphatase 102 U/L (46-116); Anion Gap 10 mmol/L (4-12); Aspartate Amino Transferase 15 U/L (15-37); Bilirubin,Total 0.4 mg/dL (0.00-1.00); Blood Urea Nitrogen 27 mg/dL (7-18); Carbon Dioxide 24 mmol/L (21-32); Chloride 102 mmol/L (98-108); Estimated CRCL calculation 28 ml/min; Estimated Glomerular Filt Rate 27; Glucose 96 mg/dL (70-99); NT Pro B Type Natriuretic Pept 4061 pg/mL (0-125); Osmolality Calculated 287 mOsm/kg (285-295); Potassium 4.5 mmol/L (3.5-5.1); Sodium 136 mmol/L (136-145); Total Protein 7.5 g/dL (6.4-8.2)
[2024-11-25] MEDS: SODIUM CHLORIDE 0.9% IV 1,000 ML 100 ML IV CONT ×2 (07:10→17:18)
--- NOTE | 2024-11-25 07:15 | PC.NURSE ---
Staff nurse informs this headline writer of patient complaining of indigestion. SENIOR CLIMATE ADVISOR made aware.
[2024-11-25 08:00] VITALS: BP 140/71; PULSE 108; RESP 20; TEMP 37; O2SAT 93
[2024-11-25] MEDS: CALCIUM CARBONATE (TUMS) 500 MG (200 MG ELEMENTAL) PO (08:28)
[2024-11-25] MEDS: MICONAZOLE NITRATE 2% CREAM 30 GM TUBE 1 APPLIC TOPICAL ×2 (08:34→17:19)
[2024-11-25] MEDS: FOLIC ACID 1 MG TABLET PO (08:37)
[2024-11-25] MEDS: lisinopriL 5 MG TABLET PO (08:37)
[2024-11-25] MEDS: PANTOPRAZOLE 40 MG TABLET PO ×2 (08:38→20:07)
--- NOTE | 2024-11-25 10:25 | P.HP_ITS ---
H&P: HPI History of Present Illness Date/Time: 11/25/24 10:25 Chief Complaint: weakness Narrative: This is a 49-year-old female with a significant past medical history of depression, nicotine dependence, generalized anxiety disorder, hypertension, renal insufficiency, history of alcohol abuse, history of amphetamine abuse who presented to the hospital with complaints of weakness. Patient reports that she started feeling weak with abdominal pain and fever x3 days with associated nausea. She denies any vomiting, diarrhea, chest pain, shortness a breath. She endorses fever, chills, nausea, abdominal pain. Workup in the hospital included a chest x-ray which was negative. patient was recently admitted and discharged from [facility] from dates 10/19/2024 through 11/07/2024 and she was treated for alcohol withdrawal and hypertensive emergency with a troponin leak. she was admitted to ICU status and was started on nitroglycerin infusion. During her stay she was seen by General surgery due to go bladder wall thickening and edema as well as gallbladder sludge And ended up recommending conservative management as she was not able to sit still for the HIDA scan or follow directions at that time. They also deemed her a poor surgical candidate. Patient's blood pressure improved and her withdrawal symptoms continue to improve however she left against medical advice on 11/07/2024. Abdomen/pelvis CT shown hepatomegaly, left kidney stone which is nonobstructing, mild renal pelvis fullness due to distended bladder, constipation. Initial labs showed a white blood cell count of 20.3, hemoglobin 11.4 sodium 135, creatinine 2.01, EGFR 26, lactic acid 3.4> 1.9, troponin 21.3, proBNP 6027> 4061. A UA was obtained which showed 2+ urine protein, 1+ urine blood, 3+ leukocyte, 3-5 urine RBC, greater than 100 urine WBC, 3+ urine bacteria. Urine drug screen was positive for amphetamine. Respiratory panel was negative for influenza A and B, RSV, COVID. Blood and urine cultures were obtained and are pending. EKG showed sinus tachycardia with a rate of 113, QTC 453. Patient was given 1 L of normal saline, morphine, Tylenol, Rocephin, Levaquin while in the ED. Review of Systems Review of Systems: All systems reviewed & are unremarkable except as noted in HPI and below PMFSH Past Medical History Medical History Alcohol abuse Protein calorie malnutrition Anemia CHF (congestive heart failure) Elevated liver enzymes Depression (11/08/15) Cellulitis of foot Nicotine dependence, cigarettes, with unspecified nicotine-induced disorders JANAE (generalized anxiety disorder) Hypertension Surgical History Surgical History History of endometrial ablation History of tonsillectomy and adenoidectomy Family History Family History Mother JANAE (generalized anxiety disorder) COPD (chronic obstructive pulmonary disease) Hypertension Father Hypertension Lung cancer Bone cancer Brain tumor Social History Social History Smoking packs per day: 0.5 Smoking cigarettes per day: 10.0 Years smoked: 33 Smoking pack-years: 16.50 Smoking status: Current every day smoker Tobacco type: cigarettes Second hand tobacco smoke exposure: Yes Additional smoking assessment comments: She has smoked 1 pack of cigarettes per day since age 18. Alcohol intake: former Drinks per week: 1 Substance use: current Substance use type: amphetamines Last use: 10/08/2024 Do You Feel Safe in your Home?: Yes Lack of Transportation: No Lack of Food: Never True Current Housing: I Have Housing Concerned About Future Housing: No Difficulty Paying Gas/Electric Bills: No Difficulty Paying for Meds: No Currently Unemployed: No Education: Trade/Vocational Certificate Difficulty w/ Childcare or Family Care: No Living arrangements: alone Additional living arrangements comments: She is been since 2019. She has 2 children. Her daughter moved out when her and her daughter now lives with her grandparents. 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 Her parents are planning to moved to assisted living March 2022. Occupation/Education: unemployed Gender identity (if verbalized by the patient): Female Spiritual care concerns: No Meds Home Medications and Allergies Home Medications ?Medication ?Instructions ?Recorded ?Confirmed ?Type nystatin 100,000 unit/gram topical 1 applic topical BID #30 grams 11/17/24 11/24/24 Rx cream psyllium husk 0.4 gram capsule 0.4 g PO DAILY PRN loose stools 11/17/24 11/24/24 Rx (Metamucil) #30 caps folic acid 1 mg tablet 1 mg PO DAILY 11/24/24 11/24/24 History hydroxyzine HCl 25 mg tablet 25 mg PO DAILY 11/24/24 11/24/24 History lisinopril 5 mg tablet 5 mg PO DAILY 11/24/24 11/24/24 History nicotine 21 mg/24 hr daily 1 patch topical Q24H PRN smoking 11/24/24 11/24/24 History transdermal patch cessation Allergies Allergy/AdvReac Type Severity Reaction Status Date / Time penicillin G Allergy Severe mouth and Verified 11/24/24 16:27 throat swell latex Allergy Intermediate Unknown Verified 11/24/24 16:27 levofloxacin (Levaquin) Allergy Intermediate Itching Verified 11/24/24 16:27 Iodinated Contrast Media Allergy Mild sneezing, Verified 11/24/24 16:27 stuffy head mupirocin Allergy Rash Verified 11/24/24 16:27 Sulfa (Sulfonamide AdvReac Mild Nausea and Verified 11/24/24 16:27 Antibiotics) Vomiting Vital Signs Vital Signs - 24 hr 11/24/24 16:22 11/24/24 17:30 11/24/24 18:49 Temperature 99.0 F 101.5 F H Pulse Rate 110 H 114 H 102 H Respiratory Rate 20 20 18 Blood Pressure 161/89 H 143/81 H 139/72 Pulse Oximetry 99 98 97 Oxygen Delivery Room Air Room Air Room Air 11/24/24 18:54 11/24/24 19:04 11/24/24 19:15 Temperature Pulse Rate 99 Respiratory Rate 17 Blood Pressure 125/71 Pulse Oximetry 96 95 95 Oxygen Delivery Room Air 11/24/24 22:00 11/25/24 00:00 11/25/24 08:00 Temperature 98.7 F 98.2 F 98.6 F Pulse Rate 99 99 108 H Respiratory Rate 18 17 20 Blood Pressure 126/78 128/67 140/71 Pulse Oximetry 96 95 93 Oxygen Delivery Room Air Room Air Room Air Exam Narrative: General: In no acute distress, Malnourished Head: atraumatic, no encephalopathy Eyes: PERRLA, sclera clear ENT: moist mucous membranes, nasal passages clear Neck: supple, no JVD, no adenopathy, trachea midline Cardiac: Normal S1 and S2. RRR, No murmur, gallops or friction rubs, peripheral pulses intact. Respiratory: Lungs clear to auscultation, no adventitious lung sounds, currently on room air Gastrointestinal: soft, non-distended, non-tender, hypoactive bowel sounds. Reports nausea : voiding without difficulty, incontinent Extremities: moves all extremities well, no edema Skin: diaphoretic Neuro: Alert and oriented x4, cranial nerves intact, no neuro deficits. Psych:tearful, interactive H&P: Results Labs Labs: Short CBC 11/24/24 11/25/24 Range/Units 17:04 05:23 WBC 20.3 H* 18.4 H (4.8-10.8) K/mm3 Hgb 11.4 L 9.1 L (12.0-15.0) g/dL Hct 35.2 29.1 L (35.0-49.0) % Plt Count 355 319 (150-420) K/mm3 BMP 11/24/24 11/25/24 17:04 05:23 Sodium 135 L 136 Potassium 4.3 4.5 Chloride 99 102 Carbon Dioxide 25 24 BUN 24 H 27 H Creatinine 2.01 H 1.98 H Glucose 99 96 Calcium 9.1 8.0 L Cardiac Enzymes 11/24/24 Range/Units 17:04 Troponin I 21.3 (0.00-60.4) ng/L Liver Function 11/24/24 11/25/24 Range/Units 17:04 05:23 Total Bilirubin 0.5 0.4 (0.00-1.00) mg/dL AST 15 15 (15-37) U/L ALT 20 18 (14-59) U/L Alkaline Phosphatase 104 102 (46-116) U/L Albumin 3.5 2.7 L (3.4-5.0) g/dL Urine 11/24/24 Range/Units 17:04 Urine Color Yellow (Yellow) Urine Appearance Clear (Clear) Urine pH 7.5 (5.0-8.0) Ur Specific [place] 1.020 (1.010-1.020) Urine Protein 2+ H (Negative) Urine Glucose (UA) Negative (Negative) Imaging Chest x-ray: Radiologist's impression: XR chest 1V portable Ordering provider: Stalin White MD History: 49 years Female with . Weakness, heart attack last week . Comparison: October 18, 2024 FINDINGS: MEDIASTINUM: The cardiac silhouette is not enlarged. LUNGS: No infiltrates, effusions or pneumothorax. OTHER: No free air under the diaphragm. IMPRESSION: No acute cardiopulmonary pathology Reviewed, dictated and finalized at location A. abdomen/pelvis CT: Radiologist's impression: CT abdomen pelvis wo con Ordering provider: Stalin White MD History: 49 years Female with . , ab pain upper and lower . Comparison: None. Technique: CT abdomen and without IV and without oral contrast. Automated exposure control and iterative reconstruction technique were employed. The dose- length product was 211.21 mGy-cm. Findings: VISUALIZED LOWER CHEST: Normal. UPPER ABDOMINAL ORGANS: Liver: Hepatomegaly. Gallbladder: Normal. Slightly prominent CBD. Spleen: Normal. Stomach/duodenum: Small sliding hiatus hernia. Pancreas: Normal. Adrenals: Normal. Kidneys: Tiny stone in the left kidney lower pole. One is of the renal pelvis on the right side is noted. The right lower ureter is not well demonstrated. PELVIC ORGANS: The bladder is grossly distended. BOWEL AND MESENTERY: Colon: No evidence of diverticulitis. Fecal material is loaded in the colon.. Appendix is not demonstrated. Small Bowel: Normal. Fluid is seen in the small bowel. No obstruction. Peritoneum/mesentery: No free air or free fluid. No mesenteric lymphadenopathy. RETROPERITONEUM: Mild atheromatous disease of the abdominal aorta. No retroperitoneal lymphadenopathy. MUSCULOSKELETAL: Superficial soft tissues: The superficial soft tissues are normal. Bones: Age appropriate degenerative changes of the spine. IMPRESSION: 1. Hepatomegaly. 2. No evidence of appendicitis, diverticulitis or intestinal obstruction. 3. Left kidney stone. 4. Mild renal pelvis fullness on the right side. The distal right ureter is not well demonstrated. 5. Grossly distended urinary bladder. 6. Constipation. Normal0 Reviewed, dictated and finalized at location A. Assessment and Plan Assessment and plan (1) Sepsis: Qualifiers: Sepsis acute organ dysfunction status: without acute organ dysfunction Sepsis type: sepsis due to unspecified organism Qualified Code(s): A41.9 - Sepsis, unspecified organism Code(s): A41.9 - Sepsis, unspecified organism Status: Acute Assessment and Plan: patient meeting sepsis criteria with heart rate of 110, temperature 101.5?, respiratory rate of 20, acute kidney injury, lactic acidosis, suspected UTI * Patient was given Levaquin while in the ED we will switch to Cipro * Patient was given 1 L of normal saline while in the ED with improvement in vital signs post fluid resuscitation * Blood and urine cultures obtained and pending * UA showing 2+ urine protein, 1+ urine blood, 3+ leukocytes, 3-5 urine RBC, greater than 100 urine WBC, 3+ urine bacteria. (2) UTI (urinary tract infection): Qualifiers: Hematuria presence: without hematuria Urinary tract infection type: site unspecified Qualified Code(s): N39.0 - Urinary tract infection, site not specified Code(s): N39.0 - Urinary tract infection, site not specified Status: Acute Assessment and Plan: * UA showing 2+ urine protein, 1+ urine blood, 3+ leukocytes, 3-5 urine RBC, greater than 100 urine WBC, 3+ urine bacteria. * Continue Cipro * Urine and blood cultures obtained and pending (3) OMAIRA (acute kidney injury): Code(s): N17.9 - Acute kidney failure, unspecified Status: Acute Assessment and Plan: Likely secondary to dehydration complicated by urinary tract infection * Initial Creatinine 2.01 * Baseline creatinine 0.95, EGFR greater than 60 * Hold nephrotoxic medication and testing with IV contrast * Creatinine today down to 1.98 * Continue to trend (4) Generalized weakness: Code(s): R53.1 - Weakness Status: Acute Assessment and Plan: Secondary to acute illness * Continue fall precautions (5) Protein calorie malnutrition: Code(s): E46 - Unspecified protein-calorie malnutrition Status: Chronic Assessment and Plan: * Regular diet ordered * Encourage p.o. intake * Will add supplementation * Dietitian consulted (6) Substance abuse: Code(s): F19.10 - Other psychoactive substance abuse, uncomplicated Status: Chronic Assessment and Plan: * Urine drug screen positive for amphetamines * History of alcohol abuse with withdrawal (7) CHF (congestive heart failure): Code(s): I50.9 - Heart failure, unspecified Status: Chronic Assessment and Plan: * Last echo reviewed which showed a normal LV systolic function with an estimated EF of 55-60%, severe increased left ventricular wall thickening with grade 1 diastolic dysfunction * ProBNP 6027 down to 4061 * Will hold off on diuresing due to acute kidney injury * Continue telemetry monitoring (8) Hypertension: Code(s): I10 - Essential (primary) hypertension Status: Chronic Assessment and Plan: * Blood pressure ranging 126/78 to 140/71 * Lisinopril increased to 10 mg daily for better control (9) JANAE (generalized anxiety disorder): Code(s): F41.1 - Generalized anxiety disorder Status: Chronic Assessment and Plan: * Continue Ativan as needed (10) Anemia: Code(s): D64.9 - Anemia, unspecified Status: Chronic Assessment and Plan: * Hemoglobin 11.4 * Will check anemia panel Quality VTE Prophylaxis VTE prophylaxis: mechanical ordered Hospitalist MIPS Advance Care Plan I have confirmed that the patient's Advanced Care Plan is present, code status is documented, or surrogate decision maker is listed in patient medical record.: Yes Medication Reconciliation I have utilized all available resources to obtain, update and review the patients current medications (includes all prescriptions, OTC, herbals, cannabis, and nutritional supplements).: Yes
[2024-11-25 11:16] VITALS: TEMP 37.7
[2024-11-25] MEDS: ACETAMINOPHEN 325 MG TABLET 650 MG PO ×2 (11:16→20:06)
[2024-11-25 12:16] VITALS: TEMP 36.9
[2024-11-25] MEDS: ONDANSETRON INJ 4 MG/2 ML VIAL IV PUSH ×2 (13:34→20:08)
[2024-11-25 16:00] VITALS: BP 159/78; PULSE 98; RESP 16; TEMP 36.8; O2SAT 98
[2024-11-25 16:02] LABS: Immature Reticulocyte Fraction 4.5 % (2.0-16.52); Reticulocyte Hemoglobin Conten 33.8 pg (28.0-35.0); Reticulocyte Percent 0.24 % (0.50-1.50); Reticulocytes Absolute 0.01 M/mm3 (0.02-0.10)
[2024-11-25 17:01] LABS: Iron 33 ug/dL (50-170); Percent Iron Saturation 25 % (12-57); Vitamin B12 212 pg/mL (193-986)
[2024-11-25 17:03] LABS: Ferritin > 1000 ng/mL (8-252); Folic Acid > 20.0 ng/mL (8.6->20)
[2024-11-25 17:04] LABS: Thyroid Stimulating Hormone Reflex 1.48 u/IU/mL (0.36-3.74)
[2024-11-25 20:00] VITALS: PULSE 105
[2024-11-25] MEDS: CIPROFLOXACIN 500 MG TAB PO (20:06)
[2024-11-25] MEDS: LORazepam INJ (*CRX) 2 MG/ML VIAL 0.5 MG IV PUSH (20:08)
[2024-11-26] VITALS (12 sets, daily range): BP systolic 131–159; BP diastolic 61–86; PULSE 77–114; RESP 16–20; TEMP 36.6–38.3; O2SAT 96–99
--- NOTE | 2024-11-26 00:20 | PC.NURSE ---
Pt asleep and IV fluid continues to infuse as ordered. No signs of discomfort noted.
--- NOTE | 2024-11-26 02:15 | PC.NURSE ---
Pt asleep and no signs of discomfort noted. IV fluid continues to infuse as ordered.
--- NOTE | 2024-11-26 02:35 | PC.NURSE ---
Pt called to use the bathroom. Attempted to walk pt to the bathroom but pt was too weak so a commode was used. Pt voided a small amount of urine and a small stool. Gown and pants changed as they were wet. Pt back to bed with assist of one.
[2024-11-26] MEDS: SODIUM CHLORIDE 0.9% IV 1,000 ML 100 ML IV CONT (03:10)
--- NOTE | 2024-11-26 03:17 | PC.NURSE ---
New bag of IV fluid infusing as ordered.
[2024-11-26] MEDS: ACETAMINOPHEN 325 MG TABLET 650 MG PO ×4 (04:09→22:08)
--- NOTE | 2024-11-26 04:10 | PC.NURSE ---
Pt's temperature is 100.1; pt given tylenol 650 mg po to relieve fever.
--- NOTE | 2024-11-26 05:15 | PC.NURSE ---
Pt's temp is 97.8.
[2024-11-26 05:48] LABS: Basophils Absolute Auto 0.03 K/mm3 (0.00-0.10); Basophils Percent Auto 0.3 % (0.0-1.0); Eosinophils Absolute Auto 0.01 K/mm3 (0.02-0.50); Eosinophils Percent Auto 0.1 % (1.0-6.0); Hematocrit 23.9 % (35.0-49.0); Hemoglobin 7.9 g/dL (12.0-15.0); Immature Granulocyte Absolute 0.07 K/mm3 (0.00-0.00); Immature Granulocyte Percent A 0.6 % (0.0-0.0); Lymphocytes Absolute Auto 0.77 K/mm3 (1.10-4.50); Lymphocytes Percent Auto 6.5 % (18.0-42.0); Mean Corpuscular HGB Conc 33.1 g/dL (32-36); Mean Corpuscular Hemoglobin 29.9 pg (27.0-31.0); Mean Corpuscular Volume 90.5 fL (78.0-102.0); Mean Platelet Volume 10.1 fl (9.2-11.8); Monocytes Absolute Auto 0.98 K/mm3 (0.10-0.90); Monocytes Percent Auto 8.2 % (2.0-11.0); Neutrophils Absolute Auto 10.02 K/mm3 (1.70-7.20); Neutrophils Percent Auto 84.3 % (50.0-70.0); Platelet Count Result 261 K/mm3 (150-420); Red Blood Count 2.64 M/mm3 (4.20-5.40); Red Cell Distribution Width 14.1 % (11.6-14.4); White Blood Count 11.9 K/mm3 (4.8-10.8)
--- NOTE | 2024-11-26 06:01 | PC.NURSE ---
Pt asleep and no signs of discomfort noted. IV fluid continues to infuse as ordered.
[2024-11-26 06:10] LABS: Alanine Aminotransferase 11 U/L (14-59); Albumin Level 2.1 g/dL (3.4-5.0); Alkaline Phosphatase 95 U/L (46-116); Anion Gap 11 mmol/L (4-12); Aspartate Amino Transferase 12 U/L (15-37); Bilirubin,Total 0.3 mg/dL (0.00-1.00); Blood Urea Nitrogen 39 mg/dL (7-18); Calcium 7.6 mg/dL (8.5-10.1); Carbon Dioxide 19 mmol/L (21-32); Chloride 105 mmol/L (98-108); Estimated CRCL calculation 18 ml/min; Estimated Glomerular Filt Rate 16; Glucose 93 mg/dL (70-99); Magnesium 1.6 mg/dL (1.8-2.4); Osmolality Calculated 289 mOsm/kg (285-295); Potassium 4.2 mmol/L (3.5-5.1); Sodium 135 mmol/L (136-145); Total Protein 6.1 g/dL (6.4-8.2)
[2024-11-26] MEDS: lisinopriL 10 MG TABLET PO (08:37)
[2024-11-26] MEDS: FOLIC ACID 1 MG TABLET PO (08:37)
[2024-11-26] MEDS: CIPROFLOXACIN 500 MG TAB PO (08:37)
[2024-11-26] MEDS: PANTOPRAZOLE 40 MG TABLET PO ×2 (08:37→21:12)
--- NOTE | 2024-11-26 08:55 | P.PNIM_ITS ---
Progress Note: A&P Assessment and Plan (1) Sepsis: Qualifiers: Sepsis acute organ dysfunction status: without acute organ dysfunction Sepsis type: sepsis due to unspecified organism Qualified Code(s): A41.9 - S epsis, unspecified organism Code(s): A41.9 - Sepsis, unspecified organism Status: Acute Assessment and Plan: patient meeting sepsis criteria with heart rate of 110, temperature 101.5?, respiratory rate of 20, acute kidney injury, lactic acidosis, suspected UTI * Patient was given Levaquin while in the ED we will switch to Cipro * Patient was given 1 L of normal saline while in the ED with improvement in vital signs post fluid resuscitation * Blood and urine cultures obtained and pending * UA showing 2+ urine protein, 1+ urine blood, 3+ leukocytes, 3-5 urine RBC, greater than 100 urine WBC, 3+ urine bacteria. 11/26 * urine and blood cultures are showing Gram-negative bacilli isolated on preliminary read * after reviewing the EMR her last urine culture showed E coli which was indeterminate for Cipro we will switch back to Levaquin today * white blood cell count down to 11.9, T-max 100.1? * will obtain another set of blood cultures today * CT of the abdomen and pelvis without contrast today showed a severely distended bladder and mild bilateral hydroureteronephrosis suggesting obstruction or neurogenic bladder, very small bilateral pleural effusions, gallbladder wall thickening without evidence of coli lithiasis or acute cholecystitis, large amount of stool scattered throughout the colon (2) UTI (urinary tract infection): Qualifiers: Hematuria presence: without hematuria Urinary tract infection type: site unspecified Qualified Code(s): N39.0 - Urinary tract infection, site not specified Code(s): N39.0 - Urinary tract infection, site not specified Status: Acute Assessment and Plan: * UA showing 2+ urine protein, 1+ urine blood, 3+ leukocytes, 3-5 urine RBC, greater than 100 urine WBC, 3+ urine bacteria. * Continue Cipro * Urine and blood cultures obtained and pending 11/26 * urine and blood culture showing Gram-negative bacilli isolated on preliminary read * Cipro change to Levaquin after review of Past urine culture (3) Bacteremia: Code(s): R78.81 - Bacteremia Status: Acute Assessment and Plan: * blood culture showing Gram-negative bacilli isolated on preliminary read * continue with Levaquin * will obtain new set of blood cultures today (4) Urinary retention: Code(s): R33.9 - Retention of urine, unspecified Status: Acute Assessment and Plan: 11/26 * CT of the abdomen and pelvis today shown marked distended bladder and mild bilateral hydroureteronephrosis suggesting an obstruction or neurogenic bladder, very small bilateral pleural effusion, gallbladder wall thickening without evidence of cholelithiasis or acute cholecystitis, large amount of stool scattered throughout the colon * urinary retention likely due to constipation * Contreras catheter placed * 1300 mL port out of Contreras initially before clamping * Ditropan ordered for bladder spasms (5) OMAIRA (acute kidney injury): Code(s): N17.9 - Acute kidney failure, unspecified Status: Acute Assessment and Plan: Likely secondary to dehydration complicated by urinary tract infection * Initial Creatinine 2.01 * Baseline creatinine 0.95, EGFR greater than 60 * Hold nephrotoxic medication and testing with IV contrast * Creatinine today down to 1.98 * Continue to trend 11/26 * worsening creatinine of 3.17, EGFR 16 * lisinopril on hold * CT of the abdomen pelvis today shown a severely distended bladder and mild bilateral hydroureteronephrosis suggesting obstruction or neurogenic bladder, very small bilateral pleural effusions, gallbladder wall thickening without evidence of coli lithiasis or acute cholecystitis, large amount of stool scattered throughout the colon * Contreras catheter was placed with 1300 mL out initially before clamping * Ditropan ordered for bladder spasms * bicarb level 19 * sodium bicarb tabs ordered (6) Constipation: Code(s): K59.00 - Constipation, unspecified Status: Acute Assessment and Plan: 11/26 * lactulose ordered (7) Protein calorie malnutrition: Code(s): E46 - Unspecified protein-calorie malnutrition Status: Chronic Assessment and Plan: * Regular diet ordered * Encourage p.o. intake * Will add supplementation * Dietitian consulted 11/26 * no change to current treatment plan (8) Substance abuse: Code(s): F19.10 - Other psychoactive substance abuse, uncomplicated Status: Chronic Assessment and Plan: * Urine drug screen positive for amphetamines * History of alcohol abuse with withdrawal (9) CHF (congestive heart failure): Code(s): I50.9 - Heart failure, unspecified Status: Chronic Assessment and Plan: * Last echo reviewed which showed a normal LV systolic function with an estimated EF of 55-60%, severe increased left ventricular wall thickening with grade 1 diastolic dysfunction * ProBNP 6027 down to 4061 * Will hold off on diuresing due to acute kidney injury * Continue telemetry monitoring 11/26 * chest x-ray was negative for any acute cardiopulmonary disease (10) Hypertension: Code(s): I10 - Essential (primary) hypertension Status: Chronic Assessment and Plan: * Blood pressure ranging 126/78 to 140/71 * Lisinopril increased to 10 mg daily for better control 11/26 * lisinopril on hold due to worsening kidney function * will order hydralazine p.r.n. (11) JANAE (generalized anxiety disorder): Code(s): F41.1 - Generalized anxiety disorder Status: Chronic Assessment and Plan: * Continue Ativan as needed (12) Anemia: Code(s): D64.9 - Anemia, unspecified Status: Chronic Assessment and Plan: * Hemoglobin 11.4 * Will check anemia panel 11/26 * hemoglobin 7.9, ? dilutional * absolute retic count 0.01, iron 33, ferritin greater than 1000, vitamin B12 -212, folate greater than 20, TSH 1.48 * will give iron infusion today * continue to trend * monitor for signs of bleeding (13) Generalized weakness: Code(s): R53.1 - Weakness Status: Acute Assessment and Plan: Secondary to acute illness * Continue fall precautions 11/26 * no change to current treatment plan Time Spent With Patient Time with patient: 25 - 35 minutes Subjective Date/time seen: 11/26/24 08:55 Interval history: Interval history: This is a 49-year-old female with a significant past medical history of depression, nicotine dependence, generalized anxiety disorder, hypertension, renal insufficiency, history of alcohol abuse, history of amphetamine abuse who presented to the hospital with complaints of weakness. Patient reports that she started feeling weak with abdominal pain and fever x3 days with associated nausea. She denies any vomiting, diarrhea, chest pain, shortness a breath. She endorses fever, chills, nausea, abdominal pain. Workup in the hospital included a chest x-ray which was negative. patient was recently admitted and discharged from [facility] from dates 10/19/2024 through 11/07/2024 and she was treated for alcohol withdrawal and hypertensive emergency with a troponin leak. she was admitted to ICU status and was started on nitroglycerin infusion. During her stay she was seen by General surgery due to go bladder wall thickening and edema as well as gallbladder sludge And ended up recommending conservative management as she was not able to sit still for the HIDA scan or follow directions at that time. They also deemed her a poor surgical candidate. Patient's blood pressure improved and her withdrawal symptoms continue to improve however she left against medical advice on 11/07/2024. Abdomen/pelvis CT shown hepatomegaly, left kidney stone which is nonobstructing, mild renal pelvis fullness due to distended bladder, constipation. Initial labs showed a white blood cell count of 20.3, hemoglobin 11.4 sodium 135, creatinine 2.01, EGFR 26, lactic acid 3.4> 1.9, troponin 21.3, proBNP 6027> 4061. A UA was obtained which showed 2+ urine protein, 1+ urine blood, 3+ leukocyte, 3-5 urine RBC, greater than 100 urine WBC, 3+ urine bacteria. Urine drug screen was positive for amphetamine. Respiratory panel was negative for influenza A and B, RSV, COVID. Blood and urine cultures were obtained and are pending. EKG showed sinus tachycardia with a rate of 113, QTC 453. Patient was given 1 L of normal saline, morphine, Tylenol, Rocephin, Levaquin while in the ED. Subjective: patient reports bladder spasms after Contreras placement today. She still reports fevers and chills. Labs and imaging reviewed. Review of Systems Review of Systems: All systems reviewed & are unremarkable except as noted in HPI and below Exam Narrative: General: In no acute distress, Malnourished Neck: supple, no JVD, no adenopathy, trachea midline Cardiac: Normal S1 and S2. RRR, No murmur, gallops or friction rubs, peripheral pulses intact. Respiratory: Lungs clear to auscultation, no adventitious lung sounds, currently on room air Gastrointestinal: soft, non-distended, non-tender, hypoactive bowel sounds. Reports nausea Constipation :contreras catheter placed for urinary retention, 1300ml out so far Skin: diaphoretic Neuro: Alert and oriented x4 Psych:tearful, interactive Objective Data Vital Signs Vital Signs: Vital Signs - 24 hr 11/25/24 11:16 11/25/24 12:16 11/25/24 16:00 Temperature 99.9 F H 98.5 F 98.2 F Pulse Rate 98 Respiratory Rate 16 Blood Pressure 159/78 H Pulse Oximetry 98 Oxygen Delivery Room Air 11/25/24 20:00 11/26/24 00:00 11/26/24 00:00 Temperature 98.7 F Pulse Rate 105 H 98 98 Respiratory Rate 20 Blood Pressure 131/69 Pulse Oximetry 96 Oxygen Delivery Room Air 11/26/24 04:00 11/26/24 04:00 11/26/24 04:09 Temperature 97.8 F 100.1 F H Pulse Rate 102 H 102 H Respiratory Rate 20 Blood Pressure 159/86 H Pulse Oximetry 97 Oxygen Delivery Room Air 11/26/24 05:42 11/26/24 07:45 11/26/24 08:00 Temperature 97.8 F 98.4 F Pulse Rate 99 89 Respiratory Rate 16 Blood Pressure 154/82 H Pulse Oximetry 98 Oxygen Delivery Room Air Intake/Output Intake/Output: Intake & Output 11/23/24 11/24/24 11/25/24 11/26/24 23:59 23:59 23:59 23:59 Intake Total 1000 2600 1086.7 Output Total 50 Balance 1000 2600 1036.7 Meds/Results Medications: Active Medications Generic Name Dose Route Start Last Admin Trade Name Freq PRN Reason Stop Dose Admin Acetaminophen 650 mg 11/24/24 19:03 11/26/24 08:37 Acetaminophen 325 Mg Tablet PO 650 mg Q4H PRN Administration Mild Pain (1-3) or Fever Albuterol 1 puff 11/24/24 19:12 Albuterol Sulfate (*Sp) Inhaler INHALATION Q4-6H PRN Shortness Of Breath Or Wheezin Calcium Carbonate 200 mg 11/25/24 07:21 11/25/24 08:28 Calcium Carbonate (Tums) 500 Mg (200 Mg Elemental) PO 200 mg Q6H PRN Administration Indigestion Ciprofloxacin 500 mg 11/25/24 21:00 11/26/24 08:37 Ciprofloxacin 500 Mg Tab PO 500 mg Q12HR NIXON Administration Diphenhydramine HCl 25 mg 11/24/24 19:03 Diphenhydramine Hcl Cap 25 Mg Capsule PO Q6H PRN Itching Folic Acid 1 mg 11/25/24 09:00 11/26/24 08:37 Folic Acid 1 Mg Tablet PO 1 mg DAILY NIXON Administration Sodium Chloride 1,000 mls @ 100 mls/hr 11/24/24 19:05 11/26/24 03:10 Normal Saline Iv IV CONT 100 mls/hr .Q10H NIXON Administration Magnesium Sulfate 2 gm in 50 mls @ 25 mls/hr 11/26/24 08:54 Magnesium Sulf 2 Gm/Water 50ml IVPB 11/26/24 10:53 ONCE ONE Iron Sucrose 400 mg/ Sodium 270 mls @ 108 mls/hr 11/26/24 08:54 Chloride IVPB 11/26/24 11:23 ONCE ONE Lisinopril 10 mg 11/26/24 09:00 11/26/24 08:37 Lisinopril 10 Mg Tablet PO 10 mg DAILY NIXON Administration Lorazepam 0.5 mg 11/24/24 19:18 11/25/24 20:08 Lorazepam Inj (*Crx) 2 Mg/Ml Vial IV PUSH 0.5 mg Q6H PRN Administration Anxiety Miconazole Nitrate 1 applic 11/25/24 09:00 11/25/24 17:19 Miconazole Nitrate 2% Cream 30 Gm Tube TOPICAL 1 applic BID NIXON Administration Nicotine 1 patch 11/24/24 20:18 11/24/24 21:10 Nicotine (*Pbkc) 21 Mg Patch TOPICAL 1 patch Q24H PRN Administration smoking cessation Ondansetron HCl 4 mg 11/25/24 12:21 11/25/24 20:08 Ondansetron Inj 4 Mg/2 Ml Vial IV PUSH 4 mg Q6H PRN Administration Nausea And Vomiting Pantoprazole Sodium 40 mg 11/25/24 09:00 11/26/24 08:37 Pantoprazole 40 Mg Tablet PO 40 mg Q12HR NIXON Administration Psyllium Hydrophilic Mucilloid 1 packet 11/24/24 19:13 Psyllium Powder Packet PO DAILY PRN loose stools Radiology Results: ITS Impressions Chest X-Ray 11/24/24 18:01 IMPRESSION: No acute cardiopulmonary pathology Abdomen/Pelvis CT 11/24/24 18:15 IMPRESSION: 1. Hepatomegaly. 2. No evidence of appendicitis, diverticulitis or intestinal obstruction. 3. Left kidney stone. 4. Mild renal pelvis fullness on the right side. The distal right ureter is not well demonstrated. 5. Grossly distended urinary bladder. 6. Constipation. Normal0 Labs Labs: Laboratory Results - last 24 hr 11/25/24 11/26/24 15:57 05:36 WBC 11.9 H RBC 2.64 L Hgb 7.9 L Hct 23.9 L MCV 90.5 MCH 29.9 MCHC 33.1 RDW 14.1 Plt Count 261 MPV 10.1 Immature Gran % (Auto) 0.6 H Neut % (Auto) 84.3 H Lymph % (Auto) 6.5 L [place] % (Auto) 8.2 Eos % (Auto) 0.1 L Baso % (Auto) 0.3 Lymph # (Auto) 0.77 L [place] # (Auto) 0.98 H Eos # (Auto) 0.01 L Baso # (Auto) 0.03 Abs Immat Gran (auto) 0.07 H Absolute Neuts (auto) 10.02 H Absolute Nucleated RBC 0.00 Nucleated RBC % 0.0 Absolute Retic 0.01 L Percent Retic 0.24 L Immature Retic Fraction 4.5 Retic Hgb Content 33.8 Sodium 135 L Potassium 4.2 Chloride 105 Carbon Dioxide 19 L Anion Gap 11 BUN 39 H Creatinine 3.17 H Estim Creat Clear Calc 18 Estimated GFR 16 L Glucose 93 Calculated Osmolality 289 Calcium 7.6 L Magnesium 1.6 L Iron 33 L TIBC 130 L % Saturation 25 Ferritin > 1000 H Total Bilirubin 0.3 AST 12 L ALT 11 L Alkaline Phosphatase 95 Total Protein 6.1 L Albumin 2.1 L Vitamin B12 212 Folate > 20.0 H TSH (Reflex) 1.48 Quality VTE Prophylaxis VTE prophylaxis: mechanical ordered
[2024-11-26] MEDS: MICONAZOLE NITRATE 2% CREAM 30 GM TUBE 1 APPLIC TOPICAL (09:00)
[2024-11-26 09:49] LABS: NT Pro B Type Natriuretic Pept 4466 pg/mL (0-125)
[2024-11-26] MEDS: IRON SUCROSE COMPLEX 400 MG in SODIUM CHLORIDE 0.9% IV 250 ML 108 MG IVPB (10:29)
[2024-11-26] MEDS: MAGNESIUM SULF 2 GM/WATER 50ML 2 GM/50 ML BAG IVPB (13:09)
[2024-11-26] MEDS: LACTULOSE 20 GM/30 ML UDC PO (13:10)
[2024-11-26] MEDS: oxyBUTYnin CHLORIDE 5 MG TABLET PO ×2 (13:10→17:43)
[2024-11-26] MEDS: MEROPENEM 500 MG/NS 100 ML 500 MG/100 ML BAG 200 MG IVPB (17:43)
[2024-11-26] MEDS: SODIUM BICARBONATE TAB 650 MG TABLET PO (17:43)
[2024-11-26] MEDS: NICOTINE (*PBKC) 21 MG PATCH 1 PATCH TOPICAL (22:08)
--- NOTE | 2024-11-26 22:19 | PC.NURSE ---
attempted to flush left wrist iv site. flushed with 2ml saline without difficulty and no sign of infiltration but pt complains of pain at site. explained would have to start new site . pt states please dont stick me anymore , ativan wasted. not given. iv to left wrist left in place. pt call bolivar in reach, pt states when is this going to stop .
[2024-11-27] VITALS (9 sets, daily range): BP systolic 136–159; BP diastolic 49–86; PULSE 73–110; RESP 12–20; TEMP 36.6–38.1; O2SAT 97–100
--- NOTE | 2024-11-27 00:07 | PC.NURSE ---
Up to [facility] [place] returned to bed. Passed small loose stool, incontinent of small amount of stool. Wet washclothes replaced under arms, groin and neck. Patient asked for sandwich, offered cottage cheese and crackers. Patient refused. Offered fluids.
[2024-11-27 06:30] LABS: Basophils Absolute Auto 0.02 K/mm3 (0.00-0.10); Basophils Percent Auto 0.2 % (0.0-1.0); Eosinophils Absolute Auto 0.04 K/mm3 (0.02-0.50); Eosinophils Percent Auto 0.3 % (1.0-6.0); Hematocrit 23.3 % (35.0-49.0); Hemoglobin 7.6 g/dL (12.0-15.0); Immature Granulocyte Absolute 0.08 K/mm3 (0.00-0.00); Immature Granulocyte Percent A 0.7 % (0.0-0.0); Lymphocytes Absolute Auto 0.81 K/mm3 (1.10-4.50); Lymphocytes Percent Auto 6.8 % (18.0-42.0); Mean Corpuscular HGB Conc 32.6 g/dL (32-36); Mean Corpuscular Hemoglobin 29.3 pg (27.0-31.0); Mean Platelet Volume 10.6 fl (9.2-11.8); Monocytes Absolute Auto 0.99 K/mm3 (0.10-0.90); Monocytes Percent Auto 8.3 % (2.0-11.0); Neutrophils Absolute Auto 9.92 K/mm3 (1.70-7.20); Neutrophils Percent Auto 83.7 % (50.0-70.0); Platelet Count Result 327 K/mm3 (150-420); Red Blood Count 2.59 M/mm3 (4.20-5.40); Red Cell Distribution Width 14.1 % (11.6-14.4); White Blood Count 11.9 K/mm3 (4.8-10.8)
[2024-11-27 06:48] LABS: Alanine Aminotransferase 15 U/L (14-59); Albumin Level 2.2 g/dL (3.4-5.0); Alkaline Phosphatase 153 U/L (46-116); Anion Gap 11 mmol/L (4-12); Aspartate Amino Transferase 16 U/L (15-37); Bilirubin,Total 0.2 mg/dL (0.00-1.00); Blood Urea Nitrogen 27 mg/dL (7-18); Carbon Dioxide 24 mmol/L (21-32); Chloride 106 mmol/L (98-108); Estimated CRCL calculation 23 ml/min; Estimated Glomerular Filt Rate 21; Glucose 119 mg/dL (70-99); Magnesium 2.1 mg/dL (1.8-2.4); Osmolality Calculated 298 mOsm/kg (285-295); Potassium 3.6 mmol/L (3.5-5.1); Sodium 141 mmol/L (136-145); Total Protein 6.5 g/dL (6.4-8.2)
[2024-11-27] MEDS: ACETAMINOPHEN 325 MG TABLET 650 MG PO ×3 (07:26→23:40)
--- NOTE | 2024-11-27 08:22 | P.PNIM_ITS ---
Progress Note: A&P Assessment and Plan (1) Sepsis: Qualifiers: Sepsis acute organ dysfunction status: without acute organ dysfunction Sepsis type: sepsis due to unspecified organism Qualified Code(s): A41.9 - S epsis, unspecified organism Code(s): A41.9 - Sepsis, unspecified organism Status: Acute Assessment and Plan: patient meeting sepsis criteria with heart rate of 110, temperature 101.5?, respiratory rate of 20, acute kidney injury, lactic acidosis, suspected UTI * Patient was given Levaquin while in the ED we will switch to Cipro * Patient was given 1 L of normal saline while in the ED with improvement in vital signs post fluid resuscitation * Blood and urine cultures obtained and pending * UA showing 2+ urine protein, 1+ urine blood, 3+ leukocytes, 3-5 urine RBC, greater than 100 urine WBC, 3+ urine bacteria. 11/26 * urine and blood cultures are showing Gram-negative bacilli isolated on preliminary read * after reviewing the EMR her last urine culture showed E coli which was indeterminate for Cipro we will switch back to Levaquin today * white blood cell count down to 11.9, T-max 100.1? * will obtain another set of blood cultures today * CT of the abdomen and pelvis without contrast today showed a severely distended bladder and mild bilateral hydroureteronephrosis suggesting obstruction or neurogenic bladder, very small bilateral pleural effusions, gallbladder wall thickening without evidence of coli lithiasis or acute cholecystitis, large amount of stool scattered throughout the colon 11/27 * urine culture showing E coli on final read with resistance to Cipro and Levaquin * blood culture from 11/24/2024 showing E coli on preliminary read * repeat blood culture from 11/26/2024 showing no growth to date on preliminary read * antibiotic changed to meropenem * white blood cell count 11.9, T-max 100.9? (2) UTI (urinary tract infection): Qualifiers: Hematuria presence: without hematuria Urinary tract infection type: site unspecified Qualified Code(s): N39.0 - Urinary tract infection, site not specified Code(s): N39.0 - Urinary tract infection, site not specified Status: Acute Assessment and Plan: * UA showing 2+ urine protein, 1+ urine blood, 3+ leukocytes, 3-5 urine RBC, greater than 100 urine WBC, 3+ urine bacteria. * Continue Cipro * Urine and blood cultures obtained and pending 11/26 * urine and blood culture showing Gram-negative bacilli isolated on preliminary read * Cipro change to Levaquin after review of Past urine culture 11/27 * urine culture showed E coli on final read with resistance to Cipro and Levaquin * blood culture from 11/24/2024 showing E coli on preliminary read * blood culture from 11/26/2024 showing no growth to date on preliminary read * antibiotic change to meropenem * will discuss with Infectious Disease pharmacist tomorrow about oral options (3) Bacteremia: Code(s): R78.81 - Bacteremia Status: Acute Assessment and Plan: * blood culture showing Gram-negative bacilli isolated on preliminary read * continue with Levaquin * will obtain new set of blood cultures today 11/27 * urine culture showing E coli on final read which is resistant to Cipro and Levaquin * blood culture from 11/24/2024 showing E coli on preliminary read * antibiotic change to meropenem * we will discuss oral antibiotic options tomorrow with Infectious Disease pharmacist * blood cultures from 11/26/2024 are showing no growth to date on preliminary read (4) Urinary retention: Code(s): R33.9 - Retention of urine, unspecified Status: Acute Assessment and Plan: 11/26 * CT of the abdomen and pelvis today shown marked distended bladder and mild bilateral hydroureteronephrosis suggesting an obstruction or neurogenic bladder, very small bilateral pleural effusion, gallbladder wall thickening without evidence of cholelithiasis or acute cholecystitis, large amount of stool scattered throughout the colon * urinary retention likely due to constipation * Contreras catheter placed * 1300 mL port out of Contreras initially before clamping * Ditropan ordered for bladder spasms 11/27 * Contreras catheter output greater than 4 L yesterday * continue Ditropan for bladder spasms * creatinine improving * multiple bowel movements reported in the last 24 hours (5) OMAIRA (acute kidney injury): Code(s): N17.9 - Acute kidney failure, unspecified Status: Acute Assessment and Plan: Likely secondary to dehydration complicated by urinary tract infection * Initial Creatinine 2.01 * Baseline creatinine 0.95, EGFR greater than 60 * Hold nephrotoxic medication and testing with IV contrast * Creatinine today down to 1.98 * Continue to trend 11/26 * worsening creatinine of 3.17, EGFR 16 * lisinopril on hold * CT of the abdomen pelvis today shown a severely distended bladder and mild bilateral hydroureteronephrosis suggesting obstruction or neurogenic bladder, very small bilateral pleural effusions, gallbladder wall thickening without evidence of coli lithiasis or acute cholecystitis, large amount of stool scattered throughout the colon * Contreras catheter was placed with 1300 mL out initially before clamping * Ditropan ordered for bladder spasms * bicarb level 19 * sodium bicarb tabs ordered 11/27 * creatinine improved to 2.49, EGFR 21 * continue to hold lisinopril * bicarb 24 today * sodium bicarb tablets discontinued (6) Constipation: Code(s): K59.00 - Constipation, unspecified Status: Acute Assessment and Plan: 11/26 * lactulose ordered 11/27 * Patient has had multiple bowel movements the last 24 hours * KUB today showing moderate stool burden * continue lactulose (7) Protein calorie malnutrition: Code(s): E46 - Unspecified protein-calorie malnutrition Status: Chronic Assessment and Plan: * Regular diet ordered * Encourage p.o. intake * Will add supplementation * Dietitian consulted 11/26 * no change to current treatment plan (8) Substance abuse: Code(s): F19.10 - Other psychoactive substance abuse, uncomplicated Status: Chronic Assessment and Plan: * Urine drug screen positive for amphetamines * History of alcohol abuse with withdrawal 11/27 * Continue to monitor for signs of withdrawal (9) CHF (congestive heart failure): Code(s): I50.9 - Heart failure, unspecified Status: Chronic Assessment and Plan: * Last echo reviewed which showed a normal LV systolic function with an estimated EF of 55-60%, severe increased left ventricular wall thickening with grade 1 diastolic dysfunction * ProBNP 6027 down to 4061 * Will hold off on diuresing due to acute kidney injury * Continue telemetry monitoring 11/26 * chest x-ray was negative for any acute cardiopulmonary disease 11/27 * No change (10) Hypertension: Code(s): I10 - Essential (primary) hypertension Status: Chronic Assessment and Plan: * Blood pressure ranging 126/78 to 140/71 * Lisinopril increased to 10 mg daily for better control 11/26 * lisinopril on hold due to worsening kidney function * will order hydralazine p.r.n. 11/27 * no change to current treatment plan (11) JANAE (generalized anxiety disorder): Code(s): F41.1 - Generalized anxiety disorder Status: Chronic Assessment and Plan: * Continue Ativan as needed 11/27 * no change to current treatment plan (12) Anemia: Code(s): D64.9 - Anemia, unspecified Status: Chronic Assessment and Plan: * Hemoglobin 11.4 * Will check anemia panel 11/26 * hemoglobin 7.9, ? dilutional * absolute retic count 0.01, iron 33, ferritin greater than 1000, vitamin B12 -212, folate greater than 20, TSH 1.48 * will give iron infusion today * continue to trend * monitor for signs of bleeding 11/27 * Start ferrous sulfate (13) Generalized weakness: Code(s): R53.1 - Weakness Status: Acute Assessment and Plan: Secondary to acute illness * Continue fall precautions 11/26 * no change to current treatment plan Time Spent With Patient Time with patient: 25 - 35 minutes Subjective Date/time seen: 11/27/24 08:22 Interval history: Interval history: This is a 49-year-old female with a significant past medical history of depression, nicotine dependence, generalized anxiety disorder, hypertension, renal insufficiency, history of alcohol abuse, history of amphetamine abuse who presented to the hospital with complaints of weakness. Patient reports that she started feeling weak with abdominal pain and fever x3 days with associated nausea. She denies any vomiting, diarrhea, chest pain, shortness a breath. She endorses fever, chills, nausea, abdominal pain. Workup in the hospital included a chest x-ray which was negative. patient was recently admitted and discharged from [facility] from dates 10/19/2024 through 11/07/2024 and she was treated for alcohol withdrawal and hypertensive emergency with a tr oponin leak. she was admitted to ICU status and was started on nitroglycerin infusion. During her stay she was seen by General surgery due to go bladder wall thickening and edema as well as gallbladder sludge And ended up recommending conservative management as she was not able to sit still for the HIDA scan or follow directions at that time. They also deemed her a poor surgical candidate. Patient's blood pressure improved and her withdrawal symptoms continue to improve however she left against medical advice on 11/07/2024. Abdomen/pelvis CT shown hepatomegaly, left kidney stone which is n onobstructing, mild renal pelvis fullness due to distended bladder, constipation. Initial labs showed a white blood cell count of 20.3, hemoglobin 11.4 sodium 135, creatinine 2.01, EGFR 26, lactic acid 3.4> 1.9, troponin 21.3, proBNP 6027> 4061. A UA was obtained which showed 2+ urine protein, 1+ urine blood, 3+ leukocyte, 3-5 urine RBC, greater than 100 urine WBC, 3+ urine bacteria. Urine drug screen was positive for amphetamine. Respiratory panel was negative for influenza A and B, RSV, COVID. Blood and urine cultures were obtained and are pending. EKG showed sinus tachycardia with a rate of 113, QTC 453. Patient was given 1 L of normal saline, morphine, Tylenol, Rocephin, Levaquin while in the ED. Subjective: Patient denies any new complaints today. Labs reviewed. Review of Systems Review of Systems: All systems reviewed & are unremarkable except as noted in HPI and below Exam Narrative: General: In no acute distress, Malnourished Neck: supple, no JVD, no adenopathy, trachea midline Cardiac: Normal S1 and S2. RRR, No murmur, gallops or friction rubs, peripheral pulses intact. Respiratory: Lungs clear to auscultation, no adventitious lung sounds, currently on room air Gastrointestinal: soft, non-distended, non-tender, hypoactive bowel sounds. Multiple bowel movements noted :contreras catheter placed for urinary retention, greater than 4 L out yesterday Skin: warm and dry Neuro: Alert and oriented x4 Psych: minimally interactive Objective Data Vital Signs Vital Signs: Vital Signs - 24 hr 11/26/24 12:00 11/26/24 12:00 11/26/24 15:36 Temperature 98.2 F 100.7 F H Pulse Rate 78 88 Respiratory Rate 16 Blood Pressure Pulse Oximetry Oxygen Delivery 11/26/24 16:30 11/26/24 16:30 11/26/24 16:36 Temperature 99.5 F 99.5 F Pulse Rate 114 H 99 Respiratory Rate 18 Blood Pressure 137/63 Pulse Oximetry 96 Oxygen Delivery Room Air 11/26/24 20:00 11/26/24 20:00 11/26/24 20:00 Temperature 98.3 F Pulse Rate 91 77 Respiratory Rate 20 Blood Pressure 143/84 H Pulse Oximetry 99 Oxygen Delivery Room Air Room Air 11/26/24 23:47 11/27/24 00:00 11/27/24 03:51 Temperature 100.9 F H Pulse Rate 99 110 H 80 Respiratory Rate 20 Blood Pressure 143/61 H Pulse Oximetry 96 Oxygen Delivery Room Air 11/27/24 03:52 Temperature 98.4 F Pulse Rate 91 Respiratory Rate 18 Blood Pressure 152/49 H Pulse Oximetry 99 Oxygen Delivery Room Air Intake/Output Intake/Output: Intake & Output 11/24/24 11/25/24 11/26/24 11/27/24 23:59 23:59 23:59 23:59 Intake Total 1000 2600 4276.7 1100 Output Total 4375 1450 Balance 1000 2600 -98.3 -350 Meds/Results Medications: Active Medications Generic Name Dose Route Start Last Admin Trade Name Freq PRN Reason Stop Dose Admin Acetaminophen 650 mg 11/24/24 19:03 11/27/24 07:26 Acetaminophen 325 Mg Tablet PO 650 mg Q4H PRN Administration Mild Pain (1-3) or Fever Albuterol 1 puff 11/24/24 19:12 Albuterol Sulfate (*Sp) Inhaler INHALATION Q4-6H PRN Shortness Of Breath Or Wheezin Calcium Carbonate 200 mg 11/25/24 07:21 11/25/24 08:28 Calcium Carbonate (Tums) 500 Mg (200 Mg Elemental) PO 200 mg Q6H PRN Administration Indigestion Diphenhydramine HCl 25 mg 11/24/24 19:03 Diphenhydramine Hcl Cap 25 Mg Capsule PO Q6H PRN Itching Folic Acid 1 mg 11/25/24 09:00 11/26/24 08:37 Folic Acid 1 Mg Tablet PO 1 mg DAILY NIXON Administration Hydralazine HCl 10 mg 11/26/24 09:43 Hydralazine Hcl 20 Mg/Ml Vial IV PUSH Q8H PRN Blood Pressure - High Meropenem 500 mg in 100 mls @ 200 mls/hr 11/26/24 17:00 11/26/24 18:13 IVPB Infused Q12HR NIXON Infusion Lactulose 20 gm 11/26/24 09:45 11/26/24 13:10 Lactulose 20 Gm/30 Ml Udc PO 20 gm QAM NIXON Administration Lisinopril 10 mg 11/26/24 09:00 11/26/24 08:37 Lisinopril 10 Mg Tablet PO 10 mg DAILY NIXON Administration Lorazepam 0.5 mg 11/24/24 19:18 11/25/24 20:08 Lorazepam Inj (*Crx) 2 Mg/Ml Vial IV PUSH 0.5 mg Q6H PRN Administration Anxiety Miconazole Nitrate 1 applic 11/25/24 09:00 11/26/24 17:53 Miconazole Nitrate 2% Cream 30 Gm Tube TOPICAL Not Given BID NIXON Nicotine 1 patch 11/24/24 20:18 11/26/24 22:08 Nicotine (*Pbkc) 21 Mg Patch TOPICAL 1 patch Q24H PRN Administration smoking cessation Ondansetron HCl 4 mg 11/25/24 12:21 11/25/24 20:08 Ondansetron Inj 4 Mg/2 Ml Vial IV PUSH 4 mg Q6H PRN Administration Nausea And Vomiting Oxybutynin Chloride 5 mg 11/26/24 10:25 11/26/24 17:43 Oxybutynin Chloride 5 Mg Tablet PO 5 mg TID NIXON Administration Pantoprazole Sodium 40 mg 11/25/24 09:00 11/26/24 21:12 Pantoprazole 40 Mg Tablet PO 40 mg Q12HR NIXON Administration Psyllium Hydrophilic Mucilloid 1 packet 11/24/24 19:13 Psyllium Powder Packet PO DAILY PRN loose stools Radiology Results: ITS Impressions Abdomen/Pelvis CT 11/26/24 09:41 IMPRESSION: 1. Marked distention the bladder and mild bilateral hydroureteronephrosis suggesting a obstruction or neurogenic bladder. 2. Very small bilateral pleural effusions, small pericardial effusion and minimal ascites in the cul-de-sac. 3. Gallbladder wall thickening which is been present since 10/21/2024 with no dilation the gallbladder and no evident cholelithiasis or sonographic Fernando's on intervening ultrasound to suggest acute cholecystitis this could be related to chronic cholecystitis, renal failure, liver disease, heart failure or other generalized edema forming states. 4. Large amount stool scattered throughout the colon. Correlate clinically for constipation. Chest X-Ray 11/26/24 11:25 IMPRESSION: 1. No acute cardiopulmonary disease. Labs Labs: Laboratory Results - last 24 hr 11/26/24 11/27/24 05:39 05:57 WBC 11.9 H RBC 2.59 L Hgb 7.6 L Hct 23.3 L MCV 90.0 MCH 29.3 MCHC 32.6 RDW 14.1 Plt Count 327 MPV 10.6 Immature Gran % (Auto) 0.7 H Neut % (Auto) 83.7 H Lymph % (Auto) 6.8 L [place] % (Auto) 8.3 Eos % (Auto) 0.3 L Baso % (Auto) 0.2 Lymph # (Auto) 0.81 L [place] # (Auto) 0.99 H Eos # (Auto) 0.04 Baso # (Auto) 0.02 Abs Immat Gran (auto) 0.08 H Absolute Neuts (auto) 9.92 H Absolute Nucleated RBC 0.00 Nucleated RBC % 0.0 Sodium 141 Potassium 3.6 Chloride 106 Carbon Dioxide 24 Anion Gap 11 BUN 27 H Creatinine 2.49 H Estim Creat Clear Calc 23 Estimated GFR 21 L Glucose 119 H Calculated Osmolality 298 H Calcium 8.0 L Magnesium 2.1 Total Bilirubin 0.2 AST 16 ALT 15 Alkaline Phosphatase 153 H NT-Pro-B Natriuret Pep 4466 H Total Protein 6.5 Albumin 2.2 L Quality VTE Prophylaxis VTE prophylaxis: mechanical ordered
[2024-11-27] MEDS: oxyBUTYnin CHLORIDE 5 MG TABLET PO ×3 (09:20→18:13)
[2024-11-27] MEDS: PANTOPRAZOLE 40 MG TABLET PO ×2 (09:20→21:31)
[2024-11-27] MEDS: FOLIC ACID 1 MG TABLET PO (09:21)
[2024-11-27] MEDS: MICONAZOLE NITRATE 2% CREAM 30 GM TUBE 1 APPLIC TOPICAL (09:24)
[2024-11-27] MEDS: FERROUS SULFATE 325 MG TABLET DR PO ×2 (09:25→18:13)
[2024-11-27] MEDS: MEROPENEM 500 MG/NS 100 ML 500 MG/100 ML BAG 200 MG IVPB ×2 (10:12→21:06)
[2024-11-27] MEDS: LORazepam INJ (*CRX) 2 MG/ML VIAL 0.5 MG IV PUSH ×2 (12:41→21:06)
[2024-11-28] VITALS: BP 171/83; PULSE 104; TEMP 38.2; O2SAT 97
[2024-11-28 04:00] VITALS: BP 182/99; PULSE 91; RESP 19; TEMP 36.7; O2SAT 100
[2024-11-28] MEDS: hydrALAZINE HCL 20 MG/ML VIAL 10 MG IV PUSH (05:24)
[2024-11-28 05:25] LABS: Basophils Absolute Auto 0.03 K/mm3 (0.00-0.10); Basophils Percent Auto 0.3 % (0.0-1.0); Eosinophils Absolute Auto 0.08 K/mm3 (0.02-0.50); Eosinophils Percent Auto 0.7 % (1.0-6.0); Hematocrit 23.7 % (35.0-49.0); Hemoglobin 7.8 g/dL (12.0-15.0); Immature Granulocyte Absolute 0.11 K/mm3 (0.00-0.00); Immature Granulocyte Percent A 0.9 % (0.0-0.0); Lymphocytes Absolute Auto 1.53 K/mm3 (1.10-4.50); Lymphocytes Percent Auto 12.9 % (18.0-42.0); Mean Corpuscular HGB Conc 32.9 g/dL (32-36); Mean Corpuscular Hemoglobin 29.4 pg (27.0-31.0); Mean Corpuscular Volume 89.4 fL (78.0-102.0); Mean Platelet Volume 9.8 fl (9.2-11.8); Monocytes Absolute Auto 1.18 K/mm3 (0.10-0.90); Monocytes Percent Auto 9.9 % (2.0-11.0); Neutrophils Absolute Auto 8.96 K/mm3 (1.70-7.20); Neutrophils Percent Auto 75.3 % (50.0-70.0); Platelet Count Result 335 K/mm3 (150-420); Red Blood Count 2.65 M/mm3 (4.20-5.40); Red Cell Distribution Width 13.9 % (11.6-14.4); White Blood Count 11.9 K/mm3 (4.8-10.8)
[2024-11-28] MEDS: ACETAMINOPHEN 325 MG TABLET 650 MG PO ×3 (05:25→20:52)
[2024-11-28 05:39] LABS: Alanine Aminotransferase 20 U/L (14-59); Albumin Level 2.1 g/dL (3.4-5.0); Alkaline Phosphatase 158 U/L (46-116); Anion Gap 10 mmol/L (4-12); Aspartate Amino Transferase 13 U/L (15-37); Bilirubin,Total 0.3 mg/dL (0.00-1.00); Blood Urea Nitrogen 17 mg/dL (7-18); Calcium 7.8 mg/dL (8.5-10.1); Carbon Dioxide 25 mmol/L (21-32); Chloride 104 mmol/L (98-108); Estimated CRCL calculation 30 ml/min; Estimated Glomerular Filt Rate 29; Glucose 102 mg/dL (70-99); Magnesium 1.7 mg/dL (1.8-2.4); Osmolality Calculated 289 mOsm/kg (285-295); Potassium 3.7 mmol/L (3.5-5.1); Sodium 139 mmol/L (136-145); Total Protein 6.6 g/dL (6.4-8.2)
[2024-11-28 08:00] VITALS: BP 134/67; PULSE 81; RESP 12; TEMP 36.9; O2SAT 95
[2024-11-28] MEDS: MEROPENEM 500 MG/NS 100 ML 500 MG/100 ML BAG 200 MG IVPB (09:46)
[2024-11-28] MEDS: MICONAZOLE NITRATE 2% CREAM 30 GM TUBE 1 APPLIC TOPICAL ×2 (09:47→17:58)
[2024-11-28] MEDS: FERROUS SULFATE 325 MG TABLET DR PO ×2 (09:47→17:57)
[2024-11-28] MEDS: PANTOPRAZOLE 40 MG TABLET PO ×2 (09:47→20:51)
[2024-11-28] MEDS: FOLIC ACID 1 MG TABLET PO (09:47)
[2024-11-28] MEDS: oxyBUTYnin CHLORIDE 5 MG TABLET PO ×3 (09:47→17:57)
--- NOTE | 2024-11-28 10:18 | P.PNIM_ITS ---
Progress Note: A&P Assessment and Plan (1) Sepsis: Qualifiers: Sepsis acute organ dysfunction status: without acute organ dysfunction Sepsis type: sepsis due to unspecified organism Qualified Code(s): A41.9 - S epsis, unspecified organism Code(s): A41.9 - Sepsis, unspecified organism Status: Acute Assessment and Plan: patient meeting sepsis criteria with heart rate of 110, temperature 101.5?, respiratory rate of 20, acute kidney injury, lactic acidosis, suspected UTI * Patient was given Levaquin while in the ED we will switch to Cipro * Patient was given 1 L of normal saline while in the ED with improvement in vital signs post fluid resuscitation * Blood and urine cultures obtained and pending * UA showing 2+ urine protein, 1+ urine blood, 3+ leukocytes, 3-5 urine RBC, greater than 100 urine WBC, 3+ urine bacteria. 11/26 * urine and blood cultures are showing Gram-negative bacilli isolated on preliminary read * after reviewing the EMR her last urine culture showed E coli which was indeterminate for Cipro we will switch back to Levaquin today * white blood cell count down to 11.9, T-max 100.1? * will obtain another set of blood cultures today * CT of the abdomen and pelvis without contrast today showed a severely distended bladder and mild bilateral hydroureteronephrosis suggesting obstruction or neurogenic bladder, very small bilateral pleural effusions, gallbladder wall thickening without evidence of coli lithiasis or acute cholecystitis, large amount of stool scattered throughout the colon 11/27 * urine culture showing E coli on final read with resistance to Cipro and Levaquin * blood culture from 11/24/2024 showing E coli on preliminary read * repeat blood culture from 11/26/2024 showing no growth to date on preliminary read * antibiotic changed to meropenem * white blood cell count 11.9, T-max 100.9? 11/28 * blood cultures showing E coli on final read * WBC remains 11.9, T max 100.8 (2) UTI (urinary tract infection): Qualifiers: Hematuria presence: without hematuria Urinary tract infection type: site unspecified Qualified Code(s): N39.0 - Urinary tract infection, site not specified Code(s): N39.0 - Urinary tract infection, site not specified Status: Acute Assessment and Plan: * UA showing 2+ urine protein, 1+ urine blood, 3+ leukocytes, 3-5 urine RBC, greater than 100 urine WBC, 3+ urine bacteria. * Continue Cipro * Urine and blood cultures obtained and pending 11/26 * urine and blood culture showing Gram-negative bacilli isolated on preliminary read * Cipro change to Levaquin after review of Past urine culture 11/27 * urine culture showed E coli on final read with resistance to Cipro and Levaquin * blood culture from 11/24/2024 showing E coli on preliminary read * blood culture from 11/26/2024 showing no growth to date on preliminary read * antibiotic change to meropenem * will discuss with Infectious Disease pharmacist tomorrow about oral options 11/28 * Urine and blood culture showing E coli on final read * continue with meropenem * will discuss with Infectious Disease pharmacist today about oral options (3) Bacteremia: Code(s): R78.81 - Bacteremia Status: Acute Assessment and Plan: * blood culture showing Gram-negative bacilli isolated on preliminary read * continue with Levaquin * will obtain new set of blood cultures today 11/27 * urine culture showing E coli on final read which is resistant to Cipro and Levaquin * blood culture from 11/24/2024 showing E coli on preliminary read * antibiotic change to meropenem * we will discuss oral antibiotic options tomorrow with Infectious Disease pharmacist * blood cultures from 11/26/2024 are showing no growth to date on preliminary read 11/28 * urine and blood culture showing E coli on final read * continue meropenem for now * will discuss with Infectious Disease pharmacist today about oral options (4) Urinary retention: Code(s): R33.9 - Retention of urine, unspecified Status: Acute Assessment and Plan: 11/26 * CT of the abdomen and pelvis today shown marked distended bladder and mild bilateral hydroureteronephrosis suggesting an obstruction or neurogenic bladder, very small bilateral pleural effusion, gallbladder wall thickening without evidence of cholelithiasis or acute cholecystitis, large amount of stool scattered throughout the colon * urinary retention likely due to constipation * Contreras catheter placed * 1300 mL port out of Contreras initially before clamping * Ditropan ordered for bladder spasms 11/27 * Contreras catheter output greater than 4 L yesterday * continue Ditropan for bladder spasms * creatinine improving * multiple bowel movements reported in the last 24 hours 11/27 * creatinine continues to improve * still having multiple bowel movements (5) OMAIRA (acute kidney injury): Code(s): N17.9 - Acute kidney failure, unspecified Status: Acute Assessment and Plan: Likely secondary to dehydration complicated by urinary tract infection * Initial Creatinine 2.01 * Baseline creatinine 0.95, EGFR greater than 60 * Hold nephrotoxic medication and testing with IV contrast * Creatinine today down to 1.98 * Continue to trend 11/26 * worsening creatinine of 3.17, EGFR 16 * lisinopril on hold * CT of the abdomen pelvis today shown a severely distended bladder and mild bilateral hydroureteronephrosis suggesting obstruction or neurogenic bladder, very small bilateral pleural effusions, gallbladder wall thickening without evidence of coli lithiasis or acute cholecystitis, large amount of stool scattered throughout the colon * Contreras catheter was placed with 1300 mL out initially before clamping * Ditropan ordered for bladder spasms * bicarb level 19 * sodium bicarb tabs ordered 11/27 * creatinine improved to 2.49, EGFR 21 * continue to hold lisinopril * bicarb 24 today * sodium bicarb tablets discontinued 11/27 * creatinine today is 1.84 * continue to hold lisinopril * continue Contreras catheter for now, plan for voiding trial in the next couple of days (6) Constipation: Code(s): K59.00 - Constipation, unspecified Status: Acute Assessment and Plan: 11/26 * lactulose ordered 11/27 * Patient has had multiple bowel movements the last 24 hours * KUB today showing moderate stool burden * continue lactulose 11/28 * no change to current treatment plan (7) Protein calorie malnutrition: Code(s): E46 - Unspecified protein-calorie malnutrition Status: Chronic Assessment and Plan: * Regular diet ordered * Encourage p.o. intake * Will add supplementation * Dietitian consulted 11/26 * no change to current treatment plan (8) Substance abuse: Code(s): F19.10 - Other psychoactive substance abuse, uncomplicated Status: Chronic Assessment and Plan: * Urine drug screen positive for amphetamines * History of alcohol abuse with withdrawal 11/27 * Continue to monitor for signs of withdrawal (9) CHF (congestive heart failure): Code(s): I50.9 - Heart failure, unspecified Status: Chronic Assessment and Plan: * Last echo reviewed which showed a normal LV systolic function with an estimated EF of 55-60%, severe increased left ventricular wall thickening with grade 1 diastolic dysfunction * ProBNP 6027 down to 4061 * Will hold off on diuresing due to acute kidney injury * Continue telemetry monitoring 11/26 * chest x-ray was negative for any acute cardiopulmonary disease 11/27 * No change (10) Hypertension: Code(s): I10 - Essential (primary) hypertension Status: Chronic Assessment and Plan: * Blood pressure ranging 126/78 to 140/71 * Lisinopril increased to 10 mg daily for better control 11/26 * lisinopril on hold due to worsening kidney function * will order hydralazine p.r.n. 11/27 * no change to current treatment plan (11) JANAE (generalized anxiety disorder): Code(s): F41.1 - Generalized anxiety disorder Status: Chronic Assessment and Plan: * Continue Ativan as needed 11/27 * no change to current treatment plan (12) Anemia: Code(s): D64.9 - Anemia, unspecified Status: Chronic Assessment and Plan: * Hemoglobin 11.4 * Will check anemia panel 11/26 * hemoglobin 7.9, ? dilutional * absolute retic count 0.01, iron 33, ferritin greater than 1000, vitamin B12 -212, folate greater than 20, TSH 1.48 * will give iron infusion today * continue to trend * monitor for signs of bleeding 11/27 * Start ferrous sulfate 11/28 * hemoglobin 7.8 * no change to current treatment plan (13) Generalized weakness: Code(s): R53.1 - Weakness Status: Acute Assessment and Plan: Secondary to acute illness * Continue fall precautions 11/26 * no change to current treatment plan Time Spent With Patient Time with patient: 15 - 25 minutes Subjective Date/time seen: 11/28/24 10:18 Interval history: Interval history: This is a 49-year-old female with a significant past medical history of depression, nicotine dependence, generalized anxiety disorder, hypertension, renal insufficiency, history of alcohol abuse, history of amphetamine abuse who presented to the hospital with complaints of weakness. Patient reports that she started feeling weak with abdominal pain and fever x3 days with associated nausea. She denies any vomiting, diarrhea, chest pain, shortness a breath. She endorses fever, chills, nausea, abdominal pain. Workup in the hospital included a chest x-ray which was negative. patient was recently admitted and discharged from [facility] from dates 10/19/2024 through 11/07/2024 and she was treated for alcohol withdrawal and hypertensive emergency with a troponin leak. she was admitted to ICU status and was started on nitroglycerin infusion. During her stay she was seen by General surgery due to go bladder wall thickening and edema as well as gallbladder sludge And ended up recommending conservative management as she was not able to sit still for the HIDA scan or follow directions at that time. They also deemed her a poor surgical candidate. Patient's blood pressure improved and her withdrawal symptoms continue to improve however she left against medical advice on 11/07/2024. Abdomen/pelvis CT shown hepatomegaly, left kidney stone which is nonobstructing, mild renal pelvis fullness due to distended bladder, constipation. Initial labs showed a white blood cell count of 20.3, hemoglobin 11.4 sodium 135, creatinine 2.01, EGFR 26, lactic acid 3.4> 1.9, troponin 21.3, proBNP 6027> 4061. A UA was obtained which showed 2+ urine protein, 1+ urine blood, 3+ leukocyte, 3-5 urine RBC, greater than 100 urine WBC, 3+ urine bacteria. Urine drug screen was positive for amphetamine. Respiratory panel was negative for influenza A and B, RSV, COVID. Blood and urine cultures were obtained and are pending. EKG showed sinus tachycardia with a rate of 113, QTC 453. Patient was given 1 L of normal saline, morphine, Tylenol, Rocephin, Levaquin while in the ED. Subjective: Patient denies any new complaints today. Labs reviewed. Review of Systems Review of Systems: All systems reviewed & are unremarkable except as noted in HPI and below Exam Narrative: General: In no acute distress, Malnourished Neck: supple, no JVD, no adenopathy, trachea midline Cardiac: Normal S1 and S2. RRR, No murmur, gallops or friction rubs, peripheral pulses intact. Respiratory: Lungs clear to auscultation, no adventitious lung sounds, currently on room air Gastrointestinal: soft, non-distended, non-tender, hypoactive bowel sounds. :contreras catheter draining clear yellow urine Skin: warm and dry Neuro: Alert and oriented x4 Psych: minimally interactive Objective Data Vital Signs Vital Signs: Vital Signs - 24 hr 11/27/24 12:00 11/27/24 12:00 11/27/24 14:49 Temperature 98.0 F 100.5 F H Pulse Rate 73 74 Respiratory Rate 14 Blood Pressure 145/70 H Pulse Oximetry 98 Oxygen Delivery Room Air 11/27/24 15:49 11/27/24 16:45 11/27/24 20:00 Temperature 98 F 97.9 F 98.7 F Pulse Rate 76 82 Respiratory Rate 16 20 Blood Pressure 136/69 Pulse Oximetry 100 Oxygen Delivery Room Air 11/28/24 00:00 11/28/24 04:00 Temperature 100.8 F H 98.1 F Pulse Rate 104 H 91 Respiratory Rate 19 Blood Pressure 171/83 H 182/99 H Pulse Oximetry 97 100 Oxygen Delivery Room Air Room Air Intake/Output Intake/Output: Intake & Output 11/25/24 11/26/24 11/27/24 11/28/24 23:59 23:59 23:59 23:59 Intake Total 2600 4276.7 3925 330 Output Total 4375 3800 1250 Balance 2600 -98.3 125 -920 Meds/Results Medications: Active Medications Generic Name Dose Route Start Last Admin Trade Name Freq PRN Reason Stop Dose Admin Acetaminophen 650 mg 11/24/24 19:03 11/28/24 05:25 Acetaminophen 325 Mg Tablet PO 650 mg Q4H PRN Administration Mild Pain (1-3) or Fever Albuterol 1 puff 11/24/24 19:12 Albuterol Sulfate (*Sp) Inhaler INHALATION Q4-6H PRN Shortness Of Breath Or Wheezin Calcium Carbonate 200 mg 11/25/24 07:21 11/25/24 08:28 Calcium Carbonate (Tums) 500 Mg (200 Mg Elemental) PO 200 mg Q6H PRN Administration Indigestion Diphenhydramine HCl 25 mg 11/24/24 19:03 Diphenhydramine Hcl Cap 25 Mg Capsule PO Q6H PRN Itching Ferrous Sulfate 325 mg 11/27/24 09:00 11/28/24 09:47 Ferrous Sulfate [address] PO 325 mg BID NIXON Administration Folic Acid 1 mg 11/25/24 09:00 11/28/24 09:47 Folic Acid 1 Mg Tablet PO 1 mg DAILY NIXON Administration Hydralazine HCl 10 mg 11/26/24 09:43 11/28/24 05:24 Hydralazine Hcl 20 Mg/Ml Vial IV PUSH 10 mg Q8H PRN Administration Blood Pressure - High Meropenem 500 mg in 100 mls @ 200 mls/hr 11/26/24 17:00 11/28/24 09:46 IVPB 200 mls/hr Q12HR NIXON Administration Lactulose 20 gm 11/26/24 09:45 11/28/24 09:47 Lactulose 20 Gm/30 Ml Udc PO Not Given QAM NIXON Lisinopril 10 mg 11/26/24 09:00 11/26/24 08:37 Lisinopril 10 Mg Tablet PO 10 mg DAILY NIXON Administration Lorazepam 0.5 mg 11/24/24 19:18 11/27/24 21:06 Lorazepam Inj (*Crx) 2 Mg/Ml Vial IV PUSH 0.5 mg Q6H PRN Administration Anxiety Miconazole Nitrate 1 applic 11/25/24 09:00 11/28/24 09:47 Miconazole Nitrate 2% Cream 30 Gm Tube TOPICAL 1 applic BID NIXON Administration Nicotine 1 patch 11/24/24 20:18 11/26/24 22:08 Nicotine (*Pbkc) 21 Mg Patch TOPICAL 1 patch Q24H PRN Administration smoking cessation Ondansetron HCl 4 mg 11/25/24 12:21 11/25/24 20:08 Ondansetron Inj 4 Mg/2 Ml Vial IV PUSH 4 mg Q6H PRN Administration Nausea And Vomiting Oxybutynin Chloride 5 mg 11/26/24 10:25 11/28/24 09:47 Oxybutynin Chloride 5 Mg Tablet PO 5 mg TID NIXON Administration Pantoprazole Sodium 40 mg 11/25/24 09:00 11/28/24 09:47 Pantoprazole 40 Mg Tablet PO 40 mg Q12HR NIXON Administration Psyllium Hydrophilic Mucilloid 1 packet 11/24/24 19:13 Psyllium Powder Packet PO DAILY PRN loose stools Radiology Results: ITS Impressions Abdomen/Pelvis CT 11/26/24 09:41 IMPRESSION: 1. Marked distention the bladder and mild bilateral hydroureteronephrosis suggesting a obstruction or neurogenic bladder. 2. Very small bilateral pleural effusions, small pericardial effusion and minim al ascites in the cul-de-sac. 3. Gallbladder wall thickening which is been present since 10/21/2024 with no dilation the gallbladder and no evident cholelithiasis or sonographic Fernando's on intervening ultrasound to suggest acute cholecystitis this could be related to chronic cholecystitis, renal failure, liver disease, heart failure or other generalized edema forming states. 4. Large amount stool scattered throughout the colon. Correlate clinically for constipation. Chest X-Ray 11/26/24 11:25 IMPRESSION: 1. No acute cardiopulmonary disease. Abdomen X-Ray 11/27/24 08:37 IMPRESSION: 1: No acute abdominal abnormality identified. Labs Labs: Laboratory Results - last 24 hr 11/28/24 05:18 WBC 11.9 H RBC 2.65 L Hgb 7.8 L Hct 23.7 L MCV 89.4 MCH 29.4 MCHC 32.9 RDW 13.9 Plt Count 335 MPV 9.8 Immature Gran % (Auto) 0.9 H Neut % (Auto) 75.3 H Lymph % (Auto) 12.9 L [place] % (Auto) 9.9 Eos % (Auto) 0.7 L Baso % (Auto) 0.3 Lymph # (Auto) 1.53 [place] # (Auto) 1.18 H Eos # (Auto) 0.08 Baso # (Auto) 0.03 Abs Immat Gran (auto) 0.11 H Absolute Neuts (auto) 8.96 H Absolute Nucleated RBC 0.00 Nucleated RBC % 0.0 Sodium 139 Potassium 3.7 Chloride 104 Carbon Dioxide 25 Anion Gap 10 BUN 17 Creatinine 1.84 H Estim Creat Clear Calc 30 Estimated GFR 29 L Glucose 102 H Calculated Osmolality 289 Calcium 7.8 L Magnesium 1.7 L Total Bilirubin 0.3 AST 13 L ALT 20 Alkaline Phosphatase 158 H Total Protein 6.6 Albumin 2.1 L Quality VTE Prophylaxis VTE prophylaxis: mechanical ordered
[2024-11-28 14:37] VITALS: TEMP 37.8
[2024-11-28 16:00] VITALS: BP 139/81; PULSE 90; RESP 18; TEMP 37.2; O2SAT 97
[2024-11-28 20:00] VITALS: PULSE 90; RESP 18; O2SAT 97
[2024-11-28] MEDS: SULFAMETHOXAZOLE/TRIMETHOPRIM 800/160 MG DS TABLET 2 TAB PO (20:52)
[2024-11-28] MEDS: diphenhydrAMINE HCl CAP 25 MG CAPSULE PO (20:52)
[2024-11-28] MEDS: LORazepam INJ (*CRX) 2 MG/ML VIAL 0.5 MG IV PUSH (20:56)
[2024-11-29] VITALS: BP 149/89; PULSE 90; RESP 18; TEMP 37.1; O2SAT 99
[2024-11-29] MEDS: ACETAMINOPHEN 325 MG TABLET 650 MG PO ×3 (02:39→20:04)
[2024-11-29 04:00] VITALS: PULSE 86; RESP 17; TEMP 36.9; O2SAT 98
[2024-11-29 05:47] LABS: Basophils Absolute Auto 0.04 K/mm3 (0.00-0.10); Basophils Percent Auto 0.4 % (0.0-1.0); Eosinophils Absolute Auto 0.15 K/mm3 (0.02-0.50); Eosinophils Percent Auto 1.4 % (1.0-6.0); Hematocrit 22.5 % (35.0-49.0); Hemoglobin 7.4 g/dL (12.0-15.0); Immature Granulocyte Absolute 0.14 K/mm3 (0.00-0.00); Immature Granulocyte Percent A 1.3 % (0.0-0.0); Lymphocytes Absolute Auto 1.37 K/mm3 (1.10-4.50); Lymphocytes Percent Auto 12.4 % (18.0-42.0); Mean Corpuscular HGB Conc 32.9 g/dL (32-36); Mean Corpuscular Hemoglobin 29.7 pg (27.0-31.0); Mean Corpuscular Volume 90.4 fL (78.0-102.0); Mean Platelet Volume 9.8 fl (9.2-11.8); Monocytes Absolute Auto 0.98 K/mm3 (0.10-0.90); Monocytes Percent Auto 8.9 % (2.0-11.0); Neutrophils Absolute Auto 8.34 K/mm3 (1.70-7.20); Neutrophils Percent Auto 75.6 % (50.0-70.0); Platelet Count Result 354 K/mm3 (150-420); Red Blood Count 2.49 M/mm3 (4.20-5.40); Red Cell Distribution Width 13.9 % (11.6-14.4)
[2024-11-29 06:02] LABS: Alanine Aminotransferase 22 U/L (14-59); Albumin Level 2.1 g/dL (3.4-5.0); Alkaline Phosphatase 138 U/L (46-116); Anion Gap 10 mmol/L (4-12); Aspartate Amino Transferase 18 U/L (15-37); Bilirubin,Total 0.2 mg/dL (0.00-1.00); Blood Urea Nitrogen 15 mg/dL (7-18); Calcium 7.7 mg/dL (8.5-10.1); Carbon Dioxide 26 mmol/L (21-32); Chloride 105 mmol/L (98-108); Estimated CRCL calculation 34 ml/min; Estimated Glomerular Filt Rate 33; Glucose 97 mg/dL (70-99); Magnesium 1.6 mg/dL (1.8-2.4); Osmolality Calculated 292 mOsm/kg (285-295); Potassium 3.3 mmol/L (3.5-5.1); Sodium 141 mmol/L (136-145); Total Protein 6.4 g/dL (6.4-8.2)
[2024-11-29 08:00] VITALS: BP 146/73; PULSE 78; RESP 16; TEMP 36.9; O2SAT 96
--- NOTE | 2024-11-29 08:34 | P.PNIM_ITS ---
Progress Note: A&P Assessment and Plan (1) Sepsis: Qualifiers: Sepsis acute organ dysfunction status: without acute organ dysfunction Sepsis type: sepsis due to unspecified organism Qualified Code(s): A41.9 - S epsis, unspecified organism Code(s): A41.9 - Sepsis, unspecified organism Status: Acute Assessment and Plan: patient meeting sepsis criteria with heart rate of 110, temperature 101.5?, respiratory rate of 20, acute kidney injury, lactic acidosis, suspected UTI * Patient was given Levaquin while in the ED we will switch to Cipro * Patient was given 1 L of normal saline while in the ED with improvement in vital signs post fluid resuscitation * Blood and urine cultures obtained and pending * UA showing 2+ urine protein, 1+ urine blood, 3+ leukocytes, 3-5 urine RBC, greater than 100 urine WBC, 3+ urine bacteria. 11/26 * urine and blood cultures are showing Gram-negative bacilli isolated on preliminary read * after reviewing the EMR her last urine culture showed E coli which was indeterminate for Cipro we will switch back to Levaquin today * white blood cell count down to 11.9, T-max 100.1? * will obtain another set of blood cultures today * CT of the abdomen and pelvis without contrast today showed a severely distended bladder and mild bilateral hydroureteronephrosis suggesting obstruction or neurogenic bladder, very small bilateral pleural effusions, gallbladder wall thickening without evidence of coli lithiasis or acute cholecystitis, large amount of stool scattered throughout the colon 11/27 * urine culture showing E coli on final read with resistance to Cipro and Levaquin * blood culture from 11/24/2024 showing E coli on preliminary read * repeat blood culture from 11/26/2024 showing no growth to date on preliminary read * antibiotic changed to meropenem * white blood cell count 11.9, T-max 100.9? 11/28 * blood cultures showing E coli on final read * WBC remains 11.9, T max 100.8 11/29 * White blood cell count 11.0, T-max 100.1? * blood culture showing E coli on preliminary read in 1 set (2) UTI (urinary tract infection): Qualifiers: Hematuria presence: without hematuria Urinary tract infection type: site unspecified Qualified Code(s): N39.0 - Urinary tract infection, site not specified Code(s): N39.0 - Urinary tract infection, site not specified Status: Acute Assessment and Plan: * UA showing 2+ urine protein, 1+ urine blood, 3+ leukocytes, 3-5 urine RBC, greater than 100 urine WBC, 3+ urine bacteria. * Continue Cipro * Urine and blood cultures obtained and pending 11/26 * urine and blood culture showing Gram-negative bacilli isolated on preliminary read * Cipro change to Levaquin after review of Past urine culture 11/27 * urine culture showed E coli on final read with resistance to Cipro and Levaquin * blood culture from 11/24/2024 showing E coli on preliminary read * blood culture from 11/26/2024 showing no growth to date on preliminary read * antibiotic change to meropenem * will discuss with Infectious Disease pharmacist tomorrow about oral options 11/28 * Urine and blood culture showing E coli on final read * continue with meropenem * will discuss with Infectious Disease pharmacist today about oral options 11/29 * meropenem change to Bactrim for 15 more doses per Infectious Disease pharmacist recommendation (3) Bacteremia: Code(s): R78.81 - Bacteremia Status: Acute Assessment and Plan: * blood culture showing Gram-negative bacilli isolated on preliminary read * continue with Levaquin * will obtain new set of blood cultures today 11/27 * urine culture showing E coli on final read which is resistant to Cipro and Levaquin * blood culture from 11/24/2024 showing E coli on preliminary read * antibiotic change to meropenem * we will discuss oral antibiotic options tomorrow with Infectious Disease pharmacist * blood cultures from 11/26/2024 are showing no growth to date on preliminary read 11/28 * urine and blood culture showing E coli on final read * continue meropenem for now * will discuss with Infectious Disease pharmacist today about oral options 11/29 * meropenem change to Bactrim for 15 more doses per Infectious Disease pharmacist recommendation (4) Urinary retention: Code(s): R33.9 - Retention of urine, unspecified Status: Acute Assessment and Plan: 11/26 * CT of the abdomen and pelvis today shown marked distended bladder and mild bilateral hydroureteronephrosis suggesting an obstruction or neurogenic bladder, very small bilateral pleural effusion, gallbladder wall thickening without evidence of cholelithiasis or acute cholecystitis, large amount of stool scattered throughout the colon * urinary retention likely due to constipation * Contreras catheter placed * 1300 mL port out of Contreras initially before clamping * Ditropan ordered for bladder spasms 11/27 * Contreras catheter output greater than 4 L yesterday * continue Ditropan for bladder spasms * creatinine improving * multiple bowel movements reported in the last 24 hours 11/27 * creatinine continues to improve * still having multiple bowel movements 11/28 * creatinine trending downward, 1.65, EGFR 33 * likely can have voiding trial in the next day or 2 (5) OMAIRA (acute kidney injury): Code(s): N17.9 - Acute kidney failure, unspecified Status: Acute Assessment and Plan: Likely secondary to dehydration complicated by urinary tract infection * Initial Creatinine 2.01 * Baseline creatinine 0.95, EGFR greater than 60 * Hold nephrotoxic medication and testing with IV contrast * Creatinine today down to 1.98 * Continue to trend 11/26 * worsening creatinine of 3.17, EGFR 16 * lisinopril on hold * CT of the abdomen pelvis today shown a severely distended bladder and mild bilateral hydroureteronephrosis suggesting obstruction or neurogenic bladder, very small bilateral pleural effusions, gallbladder wall thickening without evidence of coli lithiasis or acute cholecystitis, large amount of stool scattered throughout the colon * Contreras catheter was placed with 1300 mL out initially before clamping * Ditropan ordered for bladder spasms * bicarb level 19 * sodium bicarb tabs ordered 11/27 * creatinine improved to 2.49, EGFR 21 * continue to hold lisinopril * bicarb 24 today * sodium bicarb tablets discontinued 11/27 * creatinine today is 1.84 * continue to hold lisinopril * continue Contreras catheter for now, plan for voiding trial in the next couple of days 11/28 * creatinine 1.65 * lisinopril remains on hold (6) Constipation: Code(s): K59.00 - Constipation, unspecified Status: Acute Assessment and Plan: 11/26 * lactulose ordered 11/27 * Patient has had multiple bowel movements the last 24 hours * KUB today showing moderate stool burden * continue lactulose 11/28 * no change to current treatment plan 11/29 * will discontinue lactulose as she is having multiple loose stools (7) Protein calorie malnutrition: Code(s): E46 - Unspecified protein-calorie malnutrition Status: Chronic Assessment and Plan: * Regular diet ordered * Encourage p.o. intake * Will add supplementation * Dietitian consulted 11/26 * no change to current treatment plan (8) Substance abuse: Code(s): F19.10 - Other psychoactive substance abuse, uncomplicated Status: Chronic Assessment and Plan: * Urine drug screen positive for amphetamines * History of alcohol abuse with withdrawal 11/27 * Continue to monitor for signs of withdrawal (9) CHF (congestive heart failure): Code(s): I50.9 - Heart failure, unspecified Status: Chronic Assessment and Plan: * Last echo reviewed which showed a normal LV systolic function with an estimated EF of 55-60%, severe increased left ventricular wall thickening with grade 1 diastolic dysfunction * ProBNP 6027 down to 4061 * Will hold off on diuresing due to acute kidney injury * Continue telemetry monitoring 11/26 * chest x-ray was negative for any acute cardiopulmonary disease 11/27 * No change (10) Hypertension: Code(s): I10 - Essential (primary) hypertension Status: Chronic Assessment and Plan: * Blood pressure ranging 126/78 to 140/71 * Lisinopril increased to 10 mg daily for better control 11/26 * lisinopril on hold due to worsening kidney function * will order hydralazine p.r.n. 11/27 * no change to current treatment plan (11) JANAE (generalized anxiety disorder): Code(s): F41.1 - Generalized anxiety disorder Status: Chronic Assessment and Plan: * Continue Ativan as needed 11/27 * no change to current treatment plan 11/28 * change to Ativan to 1 mg p.o. at bedtime only as she has been somnolent during the day (12) Anemia: Code(s): D64.9 - Anemia, unspecified Status: Chronic Assessment and Plan: * Hemoglobin 11.4 * Will check anemia panel 11/26 * hemoglobin 7.9, ? dilutional * absolute retic count 0.01, iron 33, ferritin greater than 1000, vitamin B12 -212, folate greater than 20, TSH 1.48 * will give iron infusion today * continue to trend * monitor for signs of bleeding 11/27 * Start ferrous sulfate 11/28 * hemoglobin 7.8 * no change to current treatment plan 11/29 * hemoglobin 7.4 * continue ferrous sulfate * will check stool for occult blood * monitor for signs of bleeding (13) Generalized weakness: Code(s): R53.1 - Weakness Status: Acute Assessment and Plan: Secondary to acute illness * Continue fall precautions 11/26 * no change to current treatment plan 11/28 * encourage patient to be out of bed with meals * continue fall precautions Time Spent With Patient Time with patient: 15 - 25 minutes Subjective Date/time seen: 11/29/24 08:34 Interval history: Interval history: This is a 49-year-old female with a significant past medical history of depression, nicotine dependence, generalized anxiety disorder, hypertension, renal insufficiency, history of alcohol abuse, history of amphetamine abuse who presented to the hospital with complaints of weakness. Patient reports that she started feeling weak with abdominal pain and fever x3 days with associated nausea. She denies any vomiting, diarrhea, chest pain, shortness a breath. She endorses fever, chills, nausea, abdominal pain. Workup in the hospital included a chest x-ray which was negative. patient was recently admitted and discharged from [facility] from dates 10/19/2024 through 11/07/2024 and she was treated for alcohol withdrawal and hypertensive emergency with a troponin leak. she was admitted to ICU status and was started on nitroglycerin infusion. During her stay she was seen by General surgery due to go bladder wall thickening and edema as well as gallbladder sludge And ended up recomm ending conservative management as she was not able to sit still for the HIDA scan or follow directions at that time. They also deemed her a poor surgical candidate. Patient's blood pressure improved and her withdrawal symptoms continue to improve however she left against medical advice on 11/07/2024. Abdomen/pelvis CT shown hepatomegaly, left kidney stone which is nonobstructing, mild renal pelvis fullness due to distended bladder, constipation. Initial labs showed a white blood cell count of 20.3, hemoglobin 11.4 sodium 135, creatinine 2.01, EGFR 26, lactic acid 3.4> 1.9, troponin 21.3, proBNP 6027> 4061. A UA was obtained which showed 2+ urine protein, 1+ urine blood, 3+ leukocyte, 3-5 urine RBC, greater than 100 urine WBC, 3+ urine bacteria. Urine drug screen was positive for amphetamine. Respiratory panel was negative for influenza A and B, RSV, COVID. Blood and urine cultures were obtained and are pending. EKG showed sinus tachycardia with a rate of 113, QTC 453. Patient was given 1 L of normal saline, morphine, Tylenol, Rocephin, Levaquin while in the ED. Subjective: Patient denies any new complaints today. Labs reviewed. Review of Systems Review of Systems: All systems reviewed & are unremarkable except as noted in HPI and below Exam Narrative: General: In no acute distress, Malnourished Neck: supple, no JVD, no adenopathy, trachea midline Cardiac: Normal S1 and S2. RRR, No murmur, gallops or friction rubs, peripheral pulses intact. Respiratory: Lungs clear to auscultation, no adventitious lung sounds, currently on room air Gastrointestinal: soft, non-distended, non-tender, hypoactive bowel sounds. :contreras catheter draining clear yellow urine Skin: warm and dry Neuro: Alert and oriented x4 Psych: minimally interactive, sleepy Objective Data Vital Signs Vital Signs: Vital Signs - 24 hr 11/28/24 14:37 11/28/24 16:00 11/28/24 20:00 Temperature 100.1 F H 98.9 F Pulse Rate 90 90 Respiratory Rate 18 18 Blood Pressure 139/81 Pulse Oximetry 97 97 Oxygen Delivery Room Air Room Air 11/28/24 20:00 11/29/24 00:00 11/29/24 04:00 Temperature 98.7 F 98.4 F Pulse Rate 90 86 Respiratory Rate 18 17 Blood Pressure 149/89 H Pulse Oximetry 97 99 98 Oxygen Delivery Room Air Room Air Room Air Intake/Output Intake/Output: Intake & Output 11/26/24 11/27/24 11/28/24 11/29/24 23:59 23:59 23:59 23:59 Intake Total 4276.7 3925 2470 240 Output Total 4375 3800 3050 1000 Balance -98.3 026 -791 -483 Meds/Results Medications: Active Medications Generic Name Dose Route Start Last Admin Trade Name Freq PRN Reason Stop Dose Admin Acetaminophen 650 mg 11/24/24 19:03 11/29/24 02:39 Acetaminophen 325 Mg Tablet PO 650 mg Q4H PRN Administration Mild Pain (1-3) or Fever Albuterol 1 puff 11/24/24 19:12 Albuterol Sulfate (*Sp) Inhaler INHALATION Q4-6H PRN Shortness Of Breath Or Wheezin Calcium Carbonate 200 mg 11/25/24 07:21 11/25/24 08:28 Calcium Carbonate (Tums) 500 Mg (200 Mg Elemental) PO 200 mg Q6H PRN Administration Indigestion Diphenhydramine HCl 25 mg 11/24/24 19:03 11/28/24 20:52 Diphenhydramine Hcl Cap 25 Mg Capsule PO 25 mg Q6H PRN Administration Itching Ferrous Sulfate 325 mg 11/27/24 09:00 11/28/24 17:57 Ferrous Sulfate [address] PO 325 mg BID NIXON Administration Folic Acid 1 mg 11/25/24 09:00 11/28/24 09:47 Folic Acid 1 Mg Tablet PO 1 mg DAILY [facility] Administration Hydralazine HCl 10 mg 11/26/24 09:43 11/28/24 05:24 Hydralazine Hcl 20 Mg/Ml Vial IV PUSH 10 mg Q8H PRN Administration Blood Pressure - High Magnesium Sulfate 2 gm in 50 mls @ 25 mls/hr 11/29/24 08:33 Magnesium Sulf 2 Gm/Water 50ml IVPB 11/29/24 10:32 ONCE ONE Lactulose 20 gm 11/26/24 09:45 11/28/24 09:47 Lactulose 20 Gm/30 Ml Udc PO Not Given QAM [facility] Lisinopril 10 mg 11/26/24 09:00 11/26/24 08:37 Lisinopril 10 Mg Tablet PO 10 mg DAILY [facility] Administration Lorazepam 0.5 mg 11/24/24 19:18 11/28/24 20:56 Lorazepam Inj (*Crx) 2 Mg/Ml Vial IV PUSH 0.5 mg Q6H PRN Administration Anxiety Miconazole Nitrate 1 applic 11/25/24 09:00 11/28/24 17:58 Miconazole Nitrate 2% Cream 30 Gm Tube TOPICAL 1 applic BID NIXON Administration Nicotine 1 patch 11/24/24 20:18 11/26/24 22:08 Nicotine (*Pbkc) 21 Mg Patch TOPICAL 1 patch Q24H PRN Administration smoking cessation Ondansetron HCl 4 mg 11/25/24 12:21 11/25/24 20:08 Ondansetron Inj 4 Mg/2 Ml Vial IV PUSH 4 mg Q6H PRN Administration Nausea And Vomiting Oxybutynin Chloride 5 mg 11/26/24 10:25 11/28/24 17:57 Oxybutynin Chloride 5 Mg Tablet PO 5 mg TID NIXON Administration Pantoprazole Sodium 40 mg 11/25/24 09:00 11/28/24 20:51 Pantoprazole 40 Mg Tablet PO 40 mg Q12HR NIXON Administration Potassium Chloride 40 meq 11/29/24 08:33 Potassium Chloride 20 Meq Packet (For Liquid) PO 11/29/24 08:34 ONCE ONE Psyllium Hydrophilic Mucilloid 1 packet 11/24/24 19:13 Psyllium Powder Packet PO DAILY PRN loose stools Trimethoprim/Sulfamethoxazole 2 tab 11/28/24 21:00 11/28/24 20:52 Sulfamethoxazole/Trimethoprim 800/160 Mg Ds Tablet PO 12/06/24 21:01 2 tab Q12HR NIXON Administration Radiology Results: ITS Impressions Abdomen/Pelvis CT 11/26/24 09:41 IMPRESSION: 1. Marked distention the bladder and mild bilateral hydroureteronephrosis suggesting a obstruction or neurogenic bladder. 2. Very small bilateral pleural effusions, small pericardial effusion and minimal ascites in the cul-de-sac. 3. Gallbladder wall thickening which is been present since 10/21/2024 with no dilation the gallbladder and no evident cholelithiasis or sonographic Fernando's on intervening ultrasound to suggest acute cholecystitis this could be related to chronic cholecystitis, renal failure, liver disease, heart failure or other generalized edema forming states. 4. Large amount stool scattered throughout the colon. Correlate clinically for constipation. Chest X-Ray 11/26/24 11:25 IMPRESSION: 1. No acute cardiopulmonary disease. Abdomen X-Ray 11/27/24 08:37 IMPRESSION: 1: No acute abdominal abnormality identified. Labs Labs: Laboratory Results - last 24 hr 11/29/24 05:38 WBC 11.0 H RBC 2.49 L Hgb 7.4 L Hct 22.5 L MCV 90.4 MCH 29.7 MCHC 32.9 RDW 13.9 Plt Count 354 MPV 9.8 Immature Gran % (Auto) 1.3 H Neut % (Auto) 75.6 H Lymph % (Auto) 12.4 L [place] % (Auto) 8.9 Eos % (Auto) 1.4 Baso % (Auto) 0.4 Lymph # (Auto) 1.37 [place] # (Auto) 0.98 H Eos # (Auto) 0.15 Baso # (Auto) 0.04 Abs Immat Gran (auto) 0.14 H Absolute Neuts (auto) 8.34 H Absolute Nucleated RBC 0.00 Nucleated RBC % 0.0 Sodium 141 Potassium 3.3 L Chloride 105 Carbon Dioxide 26 Anion Gap 10 BUN 15 Creatinine 1.65 H Estim Creat Clear Calc 34 Estimated GFR 33 L Glucose 97 Calculated Osmolality 292 Calcium 7.7 L Magnesium 1.6 L Total Bilirubin 0.2 AST 18 ALT 22 Alkaline Phosphatase 138 H Total Protein 6.4 Albumin 2.1 L Quality VTE Prophylaxis VTE prophylaxis: mechanical ordered
[2024-11-29 08:44] LABS: Immature Reticulocyte Fraction 22.5 % (2.0-16.52); Reticulocyte Hemoglobin Conten 32.4 pg (28.0-35.0); Reticulocyte Percent 0.34 % (0.50-1.50); Reticulocytes Absolute 0.01 M/mm3 (0.02-0.10)
[2024-11-29] MEDS: MICONAZOLE NITRATE 2% CREAM 30 GM TUBE 1 APPLIC TOPICAL ×2 (08:47→16:21)
[2024-11-29] MEDS: oxyBUTYnin CHLORIDE 5 MG TABLET PO ×3 (08:47→16:19)
[2024-11-29] MEDS: FOLIC ACID 1 MG TABLET PO (08:47)
[2024-11-29] MEDS: SULFAMETHOXAZOLE/TRIMETHOPRIM 800/160 MG DS TABLET 2 TAB PO ×2 (08:47→20:04)
[2024-11-29] MEDS: CALCIUM CARBONATE (TUMS) 500 MG (200 MG ELEMENTAL) PO (08:47)
[2024-11-29] MEDS: PANTOPRAZOLE 40 MG TABLET PO ×2 (08:47→20:04)
[2024-11-29] MEDS: FERROUS SULFATE 325 MG TABLET DR PO ×2 (08:47→16:19)
[2024-11-29] MEDS: LACTULOSE 20 GM/30 ML UDC PO (08:47)
[2024-11-29] MEDS: MAGNESIUM SULF 2 GM/WATER 50ML 2 GM/50 ML BAG IVPB (08:56)
[2024-11-29] MEDS: POTASSIUM CHLORIDE 20 MEQ PACKET (FOR LIQUID) 40 MEQ PO (08:56)
[2024-11-29 12:00] VITALS: BP 171/96; PULSE 80; RESP 20; TEMP 36.6; O2SAT 96
[2024-11-29 15:10] LABS: Occult Blood Negative (Negative)
[2024-11-29 16:00] VITALS: BP 149/83; PULSE 80; RESP 18; TEMP 36.8; O2SAT 97
[2024-11-29 20:00] VITALS: PULSE 76; PULSE 80; RESP 18; TEMP 36.7; O2SAT 97
[2024-11-29] MEDS: ONDANSETRON INJ 4 MG/2 ML VIAL IV PUSH (20:03)
[2024-11-29] MEDS: LORazepam (*CRX) 1 MG TABLET PO (20:04)
[2024-11-29] MEDS: diphenhydrAMINE HCl CAP 25 MG CAPSULE PO (20:04)
[2024-11-30] VITALS: BP 144/78; PULSE 76; RESP 20; TEMP 36.7; O2SAT 96
[2024-11-30] MEDS: ACETAMINOPHEN 325 MG TABLET 650 MG PO (00:48)
[2024-11-30] MEDS: LORazepam INJ (*CRX) 2 MG/ML VIAL 1 MG IV PUSH (00:48)
--- NOTE | 2024-11-30 00:57 | PC.NURSE ---
patient continues to be tearful, states she hurts all over and just does not feel well, continues to have tremors to extremities, frequently incontinent of loose stools. [place]-care and clean depends provided and warm blanket applied for comfort, PRN IV Ativan given per order.
[2024-11-30 04:00] VITALS: PULSE 74; RESP 18; TEMP 36.9; O2SAT 96
[2024-11-30 05:27] LABS: Basophils Absolute Auto 0.02 K/mm3 (0.00-0.10); Basophils Percent Auto 0.2 % (0.0-1.0); Eosinophils Absolute Auto 0.04 K/mm3 (0.02-0.50); Eosinophils Percent Auto 0.4 % (1.0-6.0); Hematocrit 29.6 % (35.0-49.0); Hemoglobin 9.6 g/dL (12.0-15.0); Immature Granulocyte Absolute 0.13 K/mm3 (0.00-0.00); Immature Granulocyte Percent A 1.3 % (0.0-0.0); Lymphocytes Percent Auto 6.1 % (18.0-42.0); Mean Corpuscular HGB Conc 32.4 g/dL (32-36); Mean Corpuscular Hemoglobin 29.4 pg (27.0-31.0); Mean Corpuscular Volume 90.5 fL (78.0-102.0); Mean Platelet Volume 9.8 fl (9.2-11.8); Monocytes Absolute Auto 0.35 K/mm3 (0.10-0.90); Monocytes Percent Auto 3.6 % (2.0-11.0); Neutrophils Absolute Auto 8.62 K/mm3 (1.70-7.20); Neutrophils Percent Auto 88.4 % (50.0-70.0); Platelet Count Result 438 K/mm3 (150-420); Red Blood Count 3.27 M/mm3 (4.20-5.40); White Blood Count 9.8 K/mm3 (4.8-10.8)
[2024-11-30 05:42] LABS: Alanine Aminotransferase 26 U/L (14-59); Albumin Level 2.6 g/dL (3.4-5.0); Alkaline Phosphatase 149 U/L (46-116); Anion Gap 10 mmol/L (4-12); Aspartate Amino Transferase 18 U/L (15-37); Bilirubin,Total 0.2 mg/dL (0.00-1.00); Blood Urea Nitrogen 15 mg/dL (7-18); Calcium 8.3 mg/dL (8.5-10.1); Carbon Dioxide 23 mmol/L (21-32); Chloride 106 mmol/L (98-108); Estimated CRCL calculation 31 ml/min; Estimated Glomerular Filt Rate 30; Glucose 118 mg/dL (70-99); Osmolality Calculated 289 mOsm/kg (285-295); Potassium 4.3 mmol/L (3.5-5.1); Sodium 139 mmol/L (136-145); Total Protein 7.7 g/dL (6.4-8.2)
[2024-11-30 08:00] VITALS: BP 146/77; PULSE 101; RESP 16; TEMP 37.1; O2SAT 95
[2024-11-30] MEDS: ONDANSETRON INJ 4 MG/2 ML VIAL IV PUSH (08:19)
[2024-11-30] MEDS: FOLIC ACID 1 MG TABLET PO (09:45)
[2024-11-30] MEDS: SULFAMETHOXAZOLE/TRIMETHOPRIM 800/160 MG DS TABLET 2 TAB PO ×2 (09:45→21:06)
[2024-11-30] MEDS: METOCLOPRAMIDE HCL INJ 10 MG/2 ML VIAL IV PUSH (09:45)
[2024-11-30] MEDS: MICONAZOLE NITRATE 2% CREAM 30 GM TUBE 1 APPLIC TOPICAL ×2 (09:45→17:46)
[2024-11-30] MEDS: oxyBUTYnin CHLORIDE 5 MG TABLET PO ×3 (09:45→17:46)
[2024-11-30] MEDS: FERROUS SULFATE 325 MG TABLET DR PO ×2 (09:45→17:46)
[2024-11-30] MEDS: NIFEdipine 30 MG TAB.ER.24 PO (09:45)
[2024-11-30] MEDS: PANTOPRAZOLE 40 MG TABLET PO ×2 (09:45→21:07)
[2024-11-30 12:00] VITALS: BP 140/76; PULSE 94; RESP 20; TEMP 37.1; O2SAT 96
[2024-11-30] MEDS: LACTATED RINGERS 1,000 ML 75 ML IV CONT (12:40)
[2024-11-30] MEDS: ALBUMIN HUMAN 25% 25 GM/100 ML 100 ML IVPB (14:10)
--- NOTE | 2024-11-30 14:52 | P.PNIM_ITS ---
Progress Note: A&P Assessment and Plan (1) Sepsis: Qualifiers: Sepsis acute organ dysfunction status: without acute organ dysfunction Sepsis type: sepsis due to unspecified organism Qualified Code(s): A41.9 - S epsis, unspecified organism Code(s): A41.9 - Sepsis, unspecified organism Status: Acute Assessment and Plan: Patient meet sepsis criteria with heart rate of 110, temperature 101.5?, respiratory rate of 20, acute kidney injury, lactic acidosis which was secondary to UTI and bacteremia with E coli * Continue Bactrim p.o. times 14 more doses for culture and sensitivities (ID recommendations) * Second set of blood cultures no growth today (2) UTI (urinary tract infection): Qualifiers: Hematuria presence: without hematuria Urinary tract infection type: site unspecified Qualified Code(s): N39.0 - Urinary tract infection, site not specified Code(s): N39.0 - Urinary tract infection, site not specified Status: Acute Assessment and Plan: UA showing 2+ urine protein, 1+ urine blood, 3+ leukocytes, 3-5 urine RBC, greater than 100 urine WBC, 3+ urine bacteria. Culture sensitivity showed E coli * meropenem change to Bactrim for 14 more doses per Infectious Disease pharmacist recommendation (3) Bacteremia: Code(s): R78.81 - Bacteremia Status: Acute Assessment and Plan: See above sepsis (4) Urinary retention: Code(s): R33.9 - Retention of urine, unspecified Status: Acute Assessment and Plan: CT of the abdomen and pelvis today shown marked distended bladder and mild bilateral hydroureteronephrosis suggesting an obstruction or neurogenic bladder, very small bilateral pleural effusion, gallbladder wall thickening without evidence of cholelithiasis or acute cholecystitis, large amount of stool scattered throughout the colon urinary retention likely due to constipation contreras catheter was placed and oxybutynin started * contreras discontinued attempting voiding trial * started flomax * may need discharged with contreras catheter and follow-up with urology (5) OMAIRA (acute kidney injury): Code(s): N17.9 - Acute kidney failure, unspecified Status: Acute Assessment and Plan: Acute kidney injury secondary to dehydration, UTI, urinary retention initial creatinine was 2.01 which then peaked at 3.17. was improving but bumped back up to 1.8 patient with poor oral intake. Patient with history of hypertensive crisis and amphetamine use likely some underlying CKD stage III baseline around 1.5 * discontinued her lisinopril and started on Procardia * LR overnight * encourage oral hydration * contreras removing with voiding trial * Avoid nephrotoxic drugs. * Monitor antihypertensive drug therapy. * Avoid NSAIDs. * Routine CMP monitoring GFR. * Monitor electrolytes especially potassium. (6) Protein calorie malnutrition: Code(s): E46 - Unspecified protein-calorie malnutrition Status: Chronic Assessment and Plan: * Regular diet as tolerated * Encourage p.o. intake * continue supplementation * Albumin IV x 1 (7) Substance abuse: Code(s): F19.10 - Other psychoactive substance abuse, uncomplicated Status: Chronic Assessment and Plan: Urine drug screen positive for amphetamines * Ativan PRN at night * Encouraged immediate cessation (8) CHF (congestive heart failure): Code(s): I50.9 - Heart failure, unspecified Status: Chronic Assessment and Plan: Last echo reviewed which showed a normal LV systolic function with an estimated EF of 55-60%, severe increased left ventricular wall thickening with grade 1 diastolic dysfunction * ProBNP 6027 down to 4061 * No diuresing due to acute kidney injury is euvolemic * Continue telemetry monitoring (9) Hypertension: Code(s): I10 - Essential (primary) hypertension Status: Chronic Assessment and Plan: * Discontinue lisinopril to to acute on chronic renal insufficiency * Started on Procardia * Monitor BP per unit protocol (10) JANAE (generalized anxiety disorder): Code(s): F41.1 - Generalized anxiety disorder Status: Chronic Assessment and Plan: * Continue Ativan as needed (11) Anemia: Code(s): D64.9 - Anemia, unspecified Status: Chronic Assessment and Plan: Hemoglobin 11.4 hemoglobin 7.9, possible dilutional and malnutrition, absolute retic count 0.01, iron 33, ferritin greater than 1000, vitamin B12 -212, folate greater than 20, TSH 1.48 received iron infusion and occult stool negative improved to 9.4 * continue ferrous sulfate (12) Generalized weakness: Code(s): R53.1 - Weakness Status: Acute Assessment and Plan: Secondary to acute illness * Continue fall precautions * PT/OT evaluation (13) Constipation: Code(s): K59.00 - Constipation, unspecified Status: Resolved Assessment and Plan: * RESOLVED Plan Code status: Full code per patient DVT prophylaxis: SCD's Stress ulcer prophylaxis: Protonix 40 daily PT/OT notes: PT/OT evaluation pending Disposition: Patient continues admission to the medical unit for sepsis secon cosmo to UTI bacteremia patient was extremely lethargic and somnolent today with moderate weakness and unsteady gait PT/OT has been ordered for further evaluation and possible discharge planning needs. Time Spent With Patient Time with patient: 15 - 25 minutes Subjective Date/time seen: 11/30/24 14:52 Interval history: Interval history: Patient is a 49-year-old female who was admitted for further evaluation and treatment sepsis secondary to urinary tract infection and bacteremia. Patient also has history of amphetamine abuse and began starting having withdrawal symptoms during admission as well as urinary retention. Subjective: Patient somnolent at this time minimal response to questions reports she still feels extremely nauseous patient reports she is scare to return home and moderat mu weak with ambulation to the bedside commode. Patient denied chest pain, shortness a breath chills or fever. Review of Systems Review of Systems: All systems reviewed & are unremarkable except as noted in HPI and below Exam Narrative: General: No acute distress, cachectic, Lethargic at this time Neck: supple, Cardiac: Normal S1 and S2. RRR, No murmur, gallops or friction rubs, peripheral pulses intact. Respiratory: Lungs clear to auscultation, no adventitious lung sounds, currently on room air Gastrointestinal: soft, non-distended, non-tender, hypoactive bowel sounds. poor appetite :Contreras was removed but draining clear yellow Skin: warm and dry Neuro: Alert and oriented x4, minimally interactive, sleepy, Psych: withdrawn and tearful Objective Data Vital Signs Vital Signs: Vital Signs - 24 hr 11/29/24 16:00 11/29/24 20:00 11/29/24 20:00 Temperature 98.3 F 98.0 F Pulse Rate 80 80 76 Respiratory Rate 18 18 18 Blood Pressure 149/83 H Pulse Oximetry 97 97 97 Oxygen Delivery Room Air Room Air Room Air 11/30/24 00:00 11/30/24 04:00 11/30/24 08:00 Temperature 98.1 F 98.4 F 98.8 F Pulse Rate 76 74 101 H Respiratory Rate 20 18 16 Blood Pressure 144/78 H 146/77 H Pulse Oximetry 96 96 95 Oxygen Delivery Room Air Room Air Room Air Intake/Output Intake/Output: Intake & Output 11/27/24 11/28/24 11/29/24 11/30/24 23:59 23:59 23:59 23:59 Intake Total 3925 2470 2090 1080 Output Total 3800 3050 2400 1300 Balance 386 -916 -310 -550 Meds/Results Medications: Active Medications Generic Name Dose Route Start Last Admin Trade Name Freq PRN Reason Stop Dose Admin Acetaminophen 650 mg 11/24/24 19:03 11/30/24 00:48 Acetaminophen 325 Mg Tablet PO 650 mg Q4H PRN Administration Mild Pain (1-3) or Fever Albuterol 1 puff 11/24/24 19:12 Albuterol Sulfate (*Sp) Inhaler INHALATION Q4-6H PRN Shortness Of Breath Or Wheezin Calcium Carbonate 200 mg 11/25/24 07:21 11/29/24 08:47 Calcium Carbonate (Tums) 500 Mg (200 Mg Elemental) PO 200 mg Q6H PRN Administration Indigestion Diphenhydramine HCl 25 mg 11/24/24 19:03 11/29/24 20:04 Diphenhydramine Hcl Cap 25 Mg Capsule PO 25 mg Q6H PRN Administration Itching Ferrous Sulfate 325 mg 11/27/24 09:00 11/30/24 09:45 Ferrous Sulfate [address] PO 325 mg BID NIXON Administration Folic Acid 1 mg 11/25/24 09:00 11/30/24 09:45 Folic Acid 1 Mg Tablet PO 1 mg DAILY NIXON Administration Hydralazine HCl 10 mg 11/26/24 09:43 11/28/24 05:24 Hydralazine Hcl 20 Mg/Ml Vial IV PUSH 10 mg Q8H PRN Administration Blood Pressure - High Lactated Ringer's 1,000 mls @ 75 mls/hr 11/30/24 12:40 11/30/24 14:20 Lr - Lactated Ringers Iv IV CONT 75 mls/hr .[id number] NIXON Administration Lorazepam 0.5 mg 11/30/24 11:25 Lorazepam (*Crx) 0.5 Mg Tablet PO HS PRN Anxiety Miconazole Nitrate 1 applic 11/25/24 09:00 11/30/24 09:45 Miconazole Nitrate 2% Cream 30 Gm Tube TOPICAL 1 applic BID NIXON Administration Nicotine 1 patch 11/24/24 20:18 11/26/24 22:08 Nicotine (*Pbkc) 21 Mg Patch TOPICAL 1 patch Q24H PRN Administration smoking cessation Nifedipine 30 mg 11/30/24 09:00 11/30/24 09:45 Nifedipine 30 Mg Tab.Er.24 PO 30 mg QAM NIXON Administration Ondansetron HCl 4 mg 11/25/24 12:21 11/30/24 08:19 Ondansetron Inj 4 Mg/2 Ml Vial IV PUSH 4 mg Q6H PRN Administration Nausea And Vomiting Oxybutynin Chloride 5 mg 11/26/24 10:25 11/30/24 13:09 Oxybutynin Chloride 5 Mg Tablet PO 5 mg TID NIXON Administration Pantoprazole Sodium 40 mg 11/25/24 09:00 11/30/24 09:45 Pantoprazole 40 Mg Tablet PO 40 mg Q12HR NIXON Administration Psyllium Hydrophilic Mucilloid 1 packet 11/24/24 19:13 Psyllium Powder Packet PO DAILY PRN loose stools Trimethoprim/Sulfamethoxazole 2 tab 11/28/24 21:00 11/30/24 09:45 Sulfamethoxazole/Trimethoprim 800/160 Mg Ds Tablet PO 12/06/24 21:01 2 tab Q12HR NIXON Administration Radiology Results: ITS Impressions Abdomen/Pelvis CT 11/26/24 09:41 IMPRESSION: 1. Marked distention the bladder and mild bilateral hydroureteronephrosis suggesting a obstruction or neurogenic bladder. 2. Very small bilateral pleural effusions, small pericardial effusion and minimal ascites in the cul-de-sac. 3. Gallbladder wall thickening which is been present since 10/21/2024 with no dilation the gallbladder and no evident cholelithiasis or sonographic Fernando's on intervening ultrasound to suggest acute cholecystitis this could be related to chronic cholecystitis, renal failure, liver disease, heart failure or other generalized edema forming states. 4. Large amount stool scattered throughout the colon. Correlate clinically for constipation. Chest X-Ray 11/26/24 11:25 IMPRESSION: 1. No acute cardiopulmonary disease. Abdomen X-Ray 11/27/24 08:37 IMPRESSION: 1: No acute abdominal abnormality identified. Labs Labs: Laboratory Results - last 24 hr 11/29/24 11/30/24 14:59 05:20 WBC 9.8 RBC 3.27 L Hgb 9.6 L Hct 29.6 L MCV 90.5 MCH 29.4 MCHC 32.4 RDW 14.0 Plt Count 438 H MPV 9.8 Immature Gran % (Auto) 1.3 H Neut % (Auto) 88.4 H Lymph % (Auto) 6.1 L Mcdonald % (Auto) 3.6 Eos % (Auto) 0.4 L Baso % (Auto) 0.2 Lymph # (Auto) 0.60 L Mcdonald # (Auto) 0.35 Eos # (Auto) 0.04 Baso # (Auto) 0.02 Abs Immat Gran (auto) 0.13 H Absolute Neuts (auto) 8.62 H Absolute Nucleated RBC 0.00 Nucleated RBC % 0.0 Sodium 139 Potassium 4.3 Chloride 106 Carbon Dioxide 23 Anion Gap 10 BUN 15 Creatinine 1.82 H Estim Creat Clear Calc 31 Estimated GFR 30 L Glucose 118 H Calculated Osmolality 289 Calcium 8.3 L Magnesium 2.0 Total Bilirubin 0.2 AST 18 ALT 26 Alkaline Phosphatase 149 H Total Protein 7.7 Albumin 2.6 L Stool Occult Blood Negative Quality VTE Prophylaxis VTE prophylaxis: mechanical ordered -Patient's previous records reviewed on admission -ER notes reviewed in detail on admission -discussed all findings and current treatment plan with patient/Family/POA -Consultations reviewed for recommendations -Patient's disposition for safe discharge discussed with ed case manager Dictation performed by [employer] direct speech recognition software, therefore shank inspector variants and typographical errors may occur. Hospitalist MIPS Advance Care Plan I have confirmed that the patient's Advanced Care Plan is present, code status is documented, or surrogate decision maker is listed in patient medical record.: Yes Medication Reconciliation I have utilized all available resources to obtain, update and review the patients current medications (includes all prescriptions, OTC, herbals, cannabis, and nutritional supplements).: Yes The patient is not eligible for med reconciliation; the patient is in a emergent medical situation where delaying treatment would jeopardize the patients health.: No
[2024-11-30 15:50] VITALS: BP 139/71; PULSE 96; RESP 20; TEMP 37.3; O2SAT 96
[2024-11-30] MEDS: TAMSULOSIN HCL 0.4 MG CAPSULE PO (16:00)
[2024-11-30] MEDS: LORazepam (*CRX) 0.5 MG TABLET PO (21:07)
[2024-12-01] VITALS: BP 129/62; PULSE 90; RESP 20; TEMP 37.3; O2SAT 97
[2024-12-01] MEDS: LACTATED RINGERS 1,000 ML 75 ML IV CONT (01:46)
[2024-12-01 05:26] LABS: Basophils Absolute Auto 0.01 K/mm3 (0.00-0.10); Basophils Percent Auto 0.1 % (0.0-1.0); Eosinophils Absolute Auto 0.12 K/mm3 (0.02-0.50); Eosinophils Percent Auto 1.7 % (1.0-6.0); Hematocrit 22.2 % (35.0-49.0); Hemoglobin 7.2 g/dL (12.0-15.0); Immature Granulocyte Percent A 1.4 % (0.0-0.0); Lymphocytes Absolute Auto 1.32 K/mm3 (1.10-4.50); Mean Corpuscular HGB Conc 32.4 g/dL (32-36); Mean Corpuscular Volume 89.5 fL (78.0-102.0); Mean Platelet Volume 9.5 fl (9.2-11.8); Monocytes Absolute Auto 0.59 K/mm3 (0.10-0.90); Monocytes Percent Auto 8.5 % (2.0-11.0); Neutrophils Absolute Auto 4.79 K/mm3 (1.70-7.20); Neutrophils Percent Auto 69.3 % (50.0-70.0); Platelet Count Result 331 K/mm3 (150-420); Red Blood Count 2.48 M/mm3 (4.20-5.40); Red Cell Distribution Width 14.2 % (11.6-14.4); White Blood Count 6.9 K/mm3 (4.8-10.8)
[2024-12-01 05:42] LABS: Alanine Aminotransferase 18 U/L (14-59); Albumin Level 2.5 g/dL (3.4-5.0); Alkaline Phosphatase 105 U/L (46-116); Anion Gap 10 mmol/L (4-12); Aspartate Amino Transferase 16 U/L (15-37); Bilirubin,Total 0.2 mg/dL (0.00-1.00); Blood Urea Nitrogen 13 mg/dL (7-18); Calcium 7.8 mg/dL (8.5-10.1); Carbon Dioxide 24 mmol/L (21-32); Chloride 103 mmol/L (98-108); Estimated CRCL calculation 33 ml/min; Estimated Glomerular Filt Rate 32; Glucose 93 mg/dL (70-99); Osmolality Calculated 284 mOsm/kg (285-295); Potassium 3.9 mmol/L (3.5-5.1); Sodium 137 mmol/L (136-145); Total Protein 6.3 g/dL (6.4-8.2)
--- NOTE | 2024-12-01 06:20 | PC.NURSE ---
Pt c/o nasal congestion and requested something for it. Tete Zamudio NP, notified and new order for saline nasal spray q 6 hrs PRN was given.
[2024-12-01] MEDS: SALINE 0.65% NAS SOLN 44 ML BTL 1 SPRAY NASAL (06:23)
[2024-12-01 08:00] VITALS: BP 154/84; PULSE 76; RESP 19; TEMP 36.4; O2SAT 97
--- NOTE | 2024-12-01 09:41 | P.DS_ITS ---
DS: Admitting Diagnosis Discharge Date 12/01/2024 Admitting Diagnosis Pyelonephritis/ sepsis/ bacteremia/ urinary tract infection/ urinary retention/ acute kidney injury DS: Discharge Diagnosis Discharge Diagnosis (1) Sepsis: Qualifiers: Sepsis acute organ dysfunction status: without acute organ dysfunction Sepsis type: sepsis due to unspecified organism Qualified Code(s): A41.9 - Sepsis, unspecified organism Code(s): A41.9 - Sepsis, unspecified organism Status: Acute (2) UTI (urinary tract infection): Qualifiers: Hematuria presence: without hematuria Urinary tract infection type: site unspecified Qualified Code(s): N39.0 - Urinary tract infection, site not specified Code(s): N39.0 - Urinary tract infection, site not specified Status: Acute (3) Bacteremia: Code(s): R78.81 - Bacteremia Status: Acute (4) Urinary retention: Code(s): R33.9 - Retention of urine, unspecified Status: Acute (5) OMAIRA (acute kidney injury): Code(s): N17.9 - Acute kidney failure, unspecified Status: Acute (6) Protein calorie malnutrition: Code(s): E46 - Unspecified protein-calorie malnutrition Status: Chronic (7) Substance abuse: Code(s): F19.10 - Other psychoactive substance abuse, uncomplicated Status: Chronic (8) CHF (congestive heart failure): Code(s): I50.9 - Heart failure, unspecified Status: Chronic (9) Hypertension: Code(s): I10 - Essential (primary) hypertension Status: Chronic (10) JANAE (generalized anxiety disorder): Code(s): F41.1 - Generalized anxiety disorder Status: Chronic (11) Anemia: Code(s): D64.9 - Anemia, unspecified Status: Chronic (12) Generalized weakness: Code(s): R53.1 - Weakness Status: Acute (13) Constipation: Code(s): K59.00 - Constipation, unspecified Status: Resolved DS: Summary Hospital Course Reason for hospitalization: Pyelonephritis/ sepsis/ bacteremia/ urinary tract infection/ urinary retention/ acute kidney injury Hospital Course: Admission: Patient was a 49-year-old female with a significant past medical history of depression, nicotine dependence, generalized anxiety disorder, hypertension, renal insufficiency, history of alcohol abuse, history of amphetamine abuse who presented to the hospital with complaints of weakness. Patient reports that she started feeling weak with abdominal pain and fever x3 days with associated nausea. She denies any vomiting, diarrhea, chest pain, shortness a breath. She endorses fever, chills, nausea, abdominal pain. Workup in the hospital included a chest x-ray which was negative. patient was recently admitted and d ischarged from [facility] from dates 10/19/2024 through 11/07/2024 and she was treated for alcohol withdrawal and hypertensive emergency with a troponin leak. she was admitted to ICU status and was started on nitroglycerin infusion. During her stay she was seen by General surgery due to go bladder wall thickening and edema as well as gallbladder sludge And ended up recommending conservative management as she was not able to sit still for the HIDA scan or follow directions at that time. They also deemed her a poor surgical candidate. Patient's blood pressure improved and her withdrawal symptoms continue to improve however she left against medical advice on 11/07/2024. Abdomen/pelvis CT shown hepatomegaly, left kidney stone which is nonobstructing, mild renal pelvis fullness due to distended bladder, constipation. Initial labs showed a white blood cell count of 20.3, hemoglobin 11.4 sodium 135, creatinine 2.01, EGFR 26, lactic acid 3.4> 1.9, troponin 21.3, proBNP 6027> 4061. A UA was obtained which showed 2+ urine protein, 1+ urine blood, 3+ leukocyte, 3-5 urine RBC, greater than 100 urine WBC, 3+ urine bacteria. Urine drug screen was positive for amphetamine. Respiratory panel was negative for influenza A and B, RSV, COVID. Blood and urine cultures were obtained and are pending. EKG showed sinus tachycardia with a rate of 113, QTC 453. Patient was given 1 L of normal saline, morphine, Tylenol, Rocephin, Levaquin while in the ED. Patient was then treated for sepsis secondary to urinary tract infection with bacteremia culture sensitivities resulted back with E coli at which time she was able to transitioned to oral Bactrim after discussion with I&D pharmacist. I did attempt a voiding trial however patient continued to have urinary retention and indwelling Contreras catheter had to be replaced. Patient did report she has a follow-up appointment with a urologist at [facility] possibility of neurogenic bladder so she had been discharged with the indwelling Contreras catheter. patient did have noted anemia with a drop from 11.4-7.4 at which time she had an occult stool which was negative and no overt sign GIB likely cause dilution and malnutrition iron panel showing some iron deficiency anemia as well receive. patient was also then started on ferrous sulfate b.i.d. patient with an acute kidney injury secondary to urinary retention and UTI with a peak CR of 3.17 at time of discharge creatinine went back to close to baseline at 1.6. patient initially on lisinopril for hypertension however due to her acute on chronic renal insufficiency I did transition her to 30 mg Procardia and discontinued lisinopril at this time. had a long discussion with patient regarding the need for immediate substance cessation as well as catheter care. patient did have some moderate generalized weakness I did order physical and occupational therapy who suggested continued re[facility] however patient has refused but did agree to home health services patient was then discharged home with home health. Status at Discharge Functional status at discharge: independent ambulation Overall status at discharge: patient is progressing back to baseline Time Spent with Patient Time attestation: Total time spent providing and/or coordinating discharge services: Time spent: Greater than 30 minutes Exam Narrative: General: No acute distress, cachectic, Lethargic at this time Neck: supple, Cardiac: Normal S1 and S2. RRR, No murmur, gallops or friction rubs, peripheral pulses intact. Respiratory: Lungs clear to auscultation, no adventitious lung sounds, currently on room air Gastrointestinal: soft, non-distended, non-tender, hypoactive bowel sounds. poor appetite :Contreras was removed but draining clear yellow Skin: warm and dry Neuro: Alert and oriented x4, minimally interactive, sleepy, Psych: withdrawn and tearful DS: Data Data Completed and Pending Labs on day of discharge: Labs from last 24 hours 12/01/24 05:17 WBC 6.9 RBC 2.48 L Hgb 7.2 L Hct 22.2 L MCV 89.5 MCH 29.0 MCHC 32.4 RDW 14.2 Plt Count 331 MPV 9.5 Immature Gran % (Auto) 1.4 H Neut % (Auto) 69.3 Lymph % (Auto) 19.0 Mercer % (Auto) 8.5 Eos % (Auto) 1.7 Baso % (Auto) 0.1 Lymph # (Auto) 1.32 Mercer # (Auto) 0.59 Eos # (Auto) 0.12 Baso # (Auto) 0.01 Abs Immat Gran (auto) 0.10 H Absolute Neuts (auto) 4.79 Absolute Nucleated RBC 0.00 Nucleated RBC % 0.0 Sodium 137 Potassium 3.9 Chloride 103 Carbon Dioxide 24 Anion Gap 10 BUN 13 Creatinine 1.69 H Estim Creat Clear Calc 33 Estimated GFR 32 L Glucose 93 Calculated Osmolality 284 L Calcium 7.8 L Total Bilirubin 0.2 AST 16 ALT 18 Alkaline Phosphatase 105 Total Protein 6.3 L Albumin 2.5 L Preliminary micro results at discharge 11/26/24 10:23 Blood Culture - Preliminary Blood Escherichia Coli 11/26/24 10:26 Blood Culture - Preliminary Blood Imaging Radiologist's impression: Radiology Results: ITS Impressions Abdomen/Pelvis CT 11/26/24 09:41 IMPRESSION: 1. Marked distention the bladder and mild bilateral hydroureteronephrosis suggesting a obstruction or neurogenic bladder. 2. Very small bilateral pleural effusions, small pericardial effusion and minimal ascites in the cul-de-sac. 3. Gallbladder wall thickening which is been present since 10/21/2024 with no dilation the gallbladder and no evident cholelithiasis or sonographic Fernando's on intervening ultrasound to suggest acute cholecystitis this could be related to chronic cholecystitis, renal failure, liver disease, heart failure or other generalized edema forming states. 4. Large amount stool scattered throughout the colon. Correlate clinically for constipation. Chest X-Ray 11/26/24 11:25 IMPRESSION: 1. No acute cardiopulmonary disease. Abdomen X-Ray 11/27/24 08:37 IMPRESSION: 1: No acute abdominal abnormality identified. Discharge Plan Discharge Attending physician on discharge: Juanita Llamas Consulting providers: Elham Zamudio Discharging Clinician: Elham Zamudio Anticipated Discharge Date/Time: 11/30/24 10:48 Patient Disposition: Home with Home Health Service Activity: as tolerated Diet: regular Discharge Instructions: Bacteremia (Blood infection)/UTI * I have prescribed Bactrim oral tablets it is imperative these are completed as directed Neurogenic Bladder * You are being discharged with a indwelling contreras catheter practice good hygiene and catheter care instructions have been provided with your discharge information * Please follow-up with your urologist at [facility] as scheduled Hypertension: * I have changed your Lisinopril to Procardia due to your renal function please take as prescribed and monitor BP at home substance abuse * I recommended immediate cessation from amphetamines * Follow-up outpatient with rehab/support groups Weakness: * You are being discharged with home health services for continued strength training with PT/OT Please follow-up with your primary care physician within 1 to 2 weeks How can you care for yourself at home? ? Keep track of any new symptoms or changes in your symptoms. ? Rest until you feel better. ? Be safe with medicines. Take your medicines exactly as prescribed. Call your doctor if you think you are having a problem with your medicine. ? Do not drive after taking a prescription pain medicine. ? Ensure to follow-up with primary care physician as indicated and provide updated medication list provided to you at discharge. When should you call for help? Call 911 anytime you think you may need emergency care. For example, call if: ? You passed out (lost consciousness). Call your doctor now or seek immediate medical care if: ? You have new symptoms like fever, difficulty breathing, Chest pain, vomiting, or rash. ? You have new or different pain. ? You are confused and are having trouble thinking clearly. ? Your symptoms are getting worse. Watch closely for changes in your health, and be sure to contact your doctor if: ? You do not get better as expected. Patient Instructions: Antibiotic Form, Urinary Tract Infection in Women (DC), Contreras Catheter Placement and Care (DC), Neurogenic Bladder (GEN), Methamphetamine Use Disorder (DC), Chronic Urinary Retention in Women (DC), Urinary Leg Bag (GEN), Bacteremia (DC) Patient Language: Estonian Stand Alone Forms: General Discharge Information Follow-up/Referrals: Joellen Shepherd RADAR TESTER [Primary Care Provider] - 1 week Discharge Medications: New nifedipine [Procardia XL] 30 mg Tablet Extended Release 24hr 30 mg PO QAM Qty: 30 0RF sulfamethoxazole-trimethoprim 800-160 mg Tablet 2 tablet PO Q12HR Qty: 24 0RF ferrous sulfate 325 mg (65 mg iron) Tablet,Delayed Release (Dr/Ec) 325 mg PO BID Qty: 60 0RF oxybutynin chloride 5 mg Tablet 5 mg PO TID Qty: 45 0RF tamsulosin 0.4 mg Capsule 0.4 mg PO QAM Qty: 30 0RF trazodone 50 mg tablet 50 mg PO HS PRN (Reason: sleep) Qty: 30 0RF tramadol-acetaminophen 37.5-325 mg tablet 1 tablet PO Q6H PRN (Reason: pain) Qty: 20 0RF Continued nicotine 21 mg/24 hr patch 24 hour 1 patch topical Q24H PRN (Reason: smoking cessation) hydroxyzine HCl 25 mg tablet 25 mg PO DAILY Qty: 30 0RF folic acid 1 mg tablet 1 mg PO DAILY Qty: 30 0RF psyllium husk [Metamucil] 0.4 gram capsule 0.4 g PO DAILY PRN (Reason: loose stools) Qty: 30 0RF nystatin 100,000 unit/gram cream 1 applic topical BID Qty: 30 1RF Rx Instructions: Apply to rash Discontinued lisinopril 5 mg tablet 5 mg PO DAILY Date of admission: 11/26/24 09:03 Primary Care Provider: Joellen Shepherd Admitting Provider: Juanita Llamas Attending physician on admission: Zaida Reich Condition: Improved Quality VTE Prophylaxis VTE prophylaxis: mechanical ordered -Patient's previous records reviewed on admission -ER notes reviewed in detail on admission -discussed all findings and current treatment plan with patient/Family/POA -Consultations reviewed for recommendations -Patient's disposition for safe discharge discussed with case loader operator Dictation performed by [employer] direct speech recognition software, therefore pathology transcriptionist variants and typographical errors may occur. Hospitalist MIPS Heart Failure (Exclusion) Patient has history of Heart Transplant or Left Ventricular Assistive Device?: No IF YES, STOP HERE Heart Failure (Qualifier) Patient has current or prior documentation of LVEF less than or equal to 40%, or mod/servere depressed LVSF?: No IF NO, STOP HERE
[2024-12-01] MEDS: oxyBUTYnin CHLORIDE 5 MG TABLET PO (09:53)
[2024-12-01] MEDS: PANTOPRAZOLE 40 MG TABLET PO (09:53)
[2024-12-01] MEDS: ALBUMIN HUMAN 25% 25 GM/100 ML 100 ML IVPB (09:53)
[2024-12-01] MEDS: FERROUS SULFATE 325 MG TABLET DR PO (09:53)
[2024-12-01] MEDS: SULFAMETHOXAZOLE/TRIMETHOPRIM 800/160 MG DS TABLET 2 TAB PO (09:53)
[2024-12-01] MEDS: MICONAZOLE NITRATE 2% CREAM 30 GM TUBE 1 APPLIC TOPICAL (09:53)
[2024-12-01] MEDS: FOLIC ACID 1 MG TABLET PO (09:53)
[2024-12-01] MEDS: TAMSULOSIN HCL 0.4 MG CAPSULE PO (09:53)
[2024-12-01] MEDS: NIFEdipine 30 MG TAB.ER.24 PO (09:53)
--- NOTE | 2024-12-01 12:00 | PC.NURSE ---
Discharge instructions reviewed with patient. Medications and urinary catheter teaching reviewed. Pt stated understanding and had no questions. Pt's friend, Reilly wheeled her out via wheelchair.
--- NOTE | 2024-12-02 12:22 | PC.NURSE ---
Spoke with Elham apodaca/itzel discharge call back instructions. She informs she had been in bed since discharge but doing OK. She indicated she understood and has no questions on discharge instructions at this time. Informed of possible survey call. Encouraged to make sure she goes to her appt with PCP.
== END 2024-12-01 12:05 | disposition home health service (06) | DRG 720 ==
LOC: CHSED 19:02 → CHS2ND 19:16
PROVIDERS: Admitting Provider Internal Medicine; Emergency Provider Emergency Medicine; PCP Nurse Practitioner Family; Visit Provider Nurse Practitioner Acute Care
DX: A41.51 Sepsis due to Escherichia coli [E. coli] (principal); N39.0 Urinary tract infection, site not specified; E46 Unspecified protein-calorie malnutrition; N17.9 Acute kidney failure, unspecified; I11.0 Hypertensive heart disease with heart failure; I50.9 Heart failure, unspecified; D64.9 Anemia, unspecified; N31.9 Neuromuscular dysfunction of bladder, unspecified; F10.10 Alcohol abuse, uncomplicated; F41.1 Generalized anxiety disorder; F32.A Depression, unspecified; F17.210 Nicotine dependence, cigarettes, uncomplicated; F15.90 Other stimulant use, unspecified, uncomplicated
CPT/HCPCS: 36415; 71045; 74018; 74176; 80053; 80307; 81001; 82077; 82272; 82607; 82728; 82746; 83540; 83550; 83605; 83735; 83880; 84443; 84484; 85025; 85046; 85610; 85730; 87040; 87077; 87086; 87088; 87147; 87186; 87637; 93005; 96360; 96361; 96374; 96375; 96376; 97161; 97530; 99285; A9270; G0378; G0379; J0360; J1756; J2060; J2185; J2270; J2405; J2765; J3475; J7030; J7050; J7120; P9047

== ENCOUNTER 2024-12-08 13:59 | Outpatient (CLI) | payer OTHER, SELFPAY ==
[2024-12-08 14:22] LABS: Basophils Absolute Auto 0.06 K/mm3 (0.00-0.10); Basophils Percent Auto 1.2 % (0.0-1.0); Eosinophils Absolute Auto 0.15 K/mm3 (0.02-0.50); Hematocrit 31.3 % (35.0-49.0); Hemoglobin 9.9 g/dL (12.0-15.0); Immature Granulocyte Absolute 0.02 K/mm3 (0.00-0.00); Immature Granulocyte Percent A 0.4 % (0.0-0.0); Immature Platelet Fraction Pct 0.7 % (1.0-7.0); Lymphocytes Absolute Auto 1.11 K/mm3 (1.10-4.50); Lymphocytes Percent Auto 22.1 % (18.0-42.0); Mean Corpuscular HGB Conc 31.6 g/dL (32-36); Mean Corpuscular Hemoglobin 28.9 pg (27.0-31.0); Mean Corpuscular Volume 91.5 fL (78.0-102.0); Mean Platelet Volume 8.9 fl (9.2-11.8); Neutrophils Absolute Auto 3.39 K/mm3 (1.70-7.20); Neutrophils Percent Auto 67.3 % (50.0-70.0); Platelet Count Result 578 K/mm3 (150-420); Red Blood Count 3.42 M/mm3 (4.20-5.40); Red Cell Distribution Width 14.6 % (11.6-14.4)
--- OUTSIDE RECORDS SUMMARY | 2024-12-08 14:50 | XMS_ITS | Clinical Summary ---
Author Organization [facility] Address [address] [place] [address] Phone Care Team Providers Care Set Up Mechanic Automatic Line Name Role Phone Joellen Shepherd APRN, MANAGER GLOBAL Primary Care Provi jameel Allergies Active Allergy [...] Encounters Date Type Department Care Team Description 12/06/2024 Telephone [facility] UR[facility]Y [address] [place] [address] Neo Mcfadden, MICHAEL, JAMAL 12/05/2024 Home Care Visit [address] [address] Bettye Whitaker, RN - MERVAT TRANSFER W/DC 11/21/2024 Home Care Visit [address] [address] Elham Hitchcock OT TELEPHONE ENCOUNTER 11/21/2024 Home Care Visit [address] [address] Bettye Whitaker, RN TELEPHONE ENCOUNTER 11/16/2024 1:30 PM CDT Home Care Visit [address] [address] Keri Lopez, NOUGAT CUTTER MACHINE NOUGAT CUTTER MACHINE - HOME VISIT 11/16/2024 Home Care Visit [address] [address] Meg Cassidy, PT CASE COMMUNICATION 11/15/2024 2:30 PM CDT Home Care Visit [address] [address] Bettye Whitaker, RN SN Ruben CROWELL START OF CARE 11/15/2024 Plan of Care Documentation [address] [address] 11/14/2024 7:08 AM CDT - 11/14/2024 11:59 AM CDT Emergency [facility] Emergency [address] [place] [address] Andrei Yao DO Hypertension Discharge Disposition: Discharged to home or Selfcare 11/14/2024 Travel 11/08/2024 8:15 PM CDT - 11/12/2024 12:26 PM CDT Hospital Encounter [facility] Med Surg [address] [place] [address] Sanjay Reed MD Sepsis (HCC) Discharge Disposition: Home Health Care c 11/08/2024 Travel from Last 3 Months Family [...] a day. last drink 5 weeks ago [facility] [employer] Answer Date Recorded In the past 12 months has e Handshake, gas, oil, or water [email or web address]) threatened to shut off services in your home? Patient declined 11/08/2024 Social Connection and Isolation Panel [NHANES] A nswer Date Recorded In a typical week, how many times do you talk on the phone with family, friends, or neighbors? Patient declined 11/08/2024 How often do you get togethe r with friends or relatives? Patient declined 11/08/2024 How often do you attend restorationist or worship serv ices? Patient declined 11/08/2024 Do you belong to any clubs o r organizations such as restorationist groups, unions, fraternal or athletic groups, or [...] medical care, and heating? Patient declined 11/08/2024 [facility] - Occupational Stress Questionnaire Answer Date [...] any time in the past 12 m [facility], were you homeless or living in a long term (including now)? No 11/08/2024 Sexually Active Control [...] 11/15/2024 2:49 PM CDT Plan of Treatment Health Maintenance Due [...] Colorectal Cancer Screening 11/09/2020 SARS-COV-2 Immunization ( - 2023- season) 2024 Influenza Immunization (Seas on Ended) [...] BY ABNORMAL RESULTS (11/14/2024 9:53 AM CDT) Pathologist [facility] SPECIFIC GRAVITY 1.010 1.003 - 1.030 11/14/2024 10:51 AM CDT [facility] URINE PH 7.0 5.0 - 9.0 11/14/2024 10:51 AM CDT [facility] WBC ESTERASE 25 /ul(A) Negative 11/14/2024 10:51 AM CDT [facility] NITRITE Negative Negative 11/14/2024 10:51 AM CDT [facility] PROTEIN, RANDOM URINE 100 mg/dL(A) Negative 11/14/2024 10:51 AM CDT [facility] URINE GLUCOSE, QUAL Negative Negative 11/14/2024 10:51 AM CDT [facility] URINE KETONES Negative Negative 11/14/2024 10:51 AM CDT [facility] UROBILINOGEN Normal Normal mg/dL 11/14/2024 10:51 AM CDT [facility] URINE BLOOD 50 /uL(A) Negative billy/ul 11/14/2024 10:51 AM CDT [facility] URINALYSIS COLOR Yellow 11/15/19 25 10:51 AM CDT [facility] URINALYSIS CLARITY Clear 11/14/2024 10:51 AM CDT [facility] WBC (Urine) 0-5 Negative, 0-5 /hpf 11/14/2024 10:51 AM CDT [facility] URINE RBC'S 11-20(A) Negative, 0-2 /hpf 11/14/2024 10:51 AM CDT [facility] EPITHELIAL CELLS Small amount /lpf 2024 10:51 AM CDT [facility] BACTERIA, URINE Few(A) Negative /hpf 11/14/2024 10:51 AM CDT [facility] Urine (Indwelling Catheter) Non-Phlebotomy Collection / Unknown 11/14/2024 9:53 AM CDT 11/14/2024 10:27 AM CDT us Andrei Yao DO URINE ORDERABLES Final Result [facility] [address] [place] [address] * EKG 12 LEAD (11/14/2024 8:07 AM CDT) Ventricular Rate 99 BPM EXTERNAL EKG Atrial Rate 99 BPM EXTERNAL EKG P-R Interval 124 ms EXTERNAL EKG QRS Duration 92 ms EXTERNAL EKG Q-T Duration 376 ms EXTERNAL EKG QTC CALCULATION 482 ms EXTERNAL EKG P Mobile 68 degrees EXTERNAL EKG R Mobile 72 degrees EXTERNAL EKG T Mobile 72 degrees EXTERNAL EKG 11/14/2024 8:07 AM CDT Impressions EXTERNAL EKG - 11/15/2024 4:45 PM CDT Normal sinus rhythm Possible Left atrial enlargement QTcB >= 480 msec Abnormal ECG No previous ECGs available Confirmed by MADELINE SANDOVAL ([id number]) on 11/15/2024 4:45:02 PM Narrative Procedure Note Madeline Sandoval MD - 11/15/2024 IMPRESSION: Normal sinus rhythm Possible Left atrial enlargement QTcB >= 480 msec Abnormal ECG No previous ECGs available Confirmed by MADELINE SANDOVAL ([id number]) on 11/15/2024 4:45:02 PM us Andrei Yao DO IMG ECG ORDERABLES Belia l Result EXTERNAL EKG * TROPONIN I, HIGH SENSITIVITY (HSTRP) (11/14/2024 7:53 AM CDT) TROPONIN I, HIGH SENSITIVITY- ESPOSITO 9 <=14 ng/L 11/14/2024 9:12 AM CDT [facility] Comment: High-sensitivity troponin I results are reported in ng/L making the result appear to be 1,000 times higher than the contemporary troponin I value which is reported in ng/ml. Results from [facility]. Blood Venipuncture / Unknown 11/14/2024 7:53 AM CDT 11/14/2024 8:40 AM CDT us Andrei Yao DO CHEMISTRY ORDERABLES Fi nal Result [facility] [address] [place] [address] * (ABNORMAL) Manual Differential (11/14/2024 7:53 AM CDT) BANDS % 2.0 % 11/14/2024 9:22 AM CDT [facility] NEUTROPHILS % 73.0 47.0 - 73.0 % 11/14/2024 9:22 AM CDT [facility] LYMPHOCYTES % 19.0 18.0 - 42.0 % 11/14/2024 9:22 AM CDT [facility] MONOCYTES % 3.0(L) 4.0 - 12.0 % 11/14/2024 9:22 AM CDT [facility] EOSINOPHILS % 3.0 0.0 - 5.0 % 11/14/2024 9:22 AM CDT [facility] NEUTROPHILS ABSOLUTE 7.62 1.60 - 7.70 10(3)/mcL 11/14/2024 9:22 AM CDT [facility] LYMPHOCYTES ABSOLUTE 1.93 1.30 - 3.20 10(3)/mcL 11/14/2024 9:22 AM CDT [facility] MONOCYTES ABSOLUTE 0.30 0.20 - 1.00 10(3)/mcL 11/14/2024 9:22 AM CDT [facility] EOSINOPHILS ABSOLUTE 0.30 0.00 - 0.40 10(3)/mcL 11/14/2024 9:22 AM CDT [facility] REACTIVE LYMPHOCYTES 1 11/14/2024 9:22 AM CDT [facility] WBC MORPH STATUS Normal 11/15/19 9:22 AM CDT [facility] RBC MORPH STATUS Normal 11/15/19 9:22 AM CDT [facility] PLATELET STATUS Normal 9:22 AM CDT [facility] Blood Venipuncture / Unknown 11/14/2024 7:53 AM CDT 11/14/2024 8:40 AM CDT us Andrei Yao DO HEMATOLOGY ORDERABLES F inal Result [facility] [address] [place] [address] * (ABNORMAL) CBC with Auto Differential (11/14/2024 7:53 AM CDT) Only the most recent of6 resultswithin the time period is included. WBC 10.16 4.00 - 12.00 10(3)/mcL 11/14/2024 9:22 AM CDT [facility] RBC 3.64(L) 3.80 - 5.30 10(6)/mcL 11/14/2024 9:22 AM CDT [facility] HEMOGLOBIN (HGB) 10.8(L) 12.0 - 15.8 g/dL 11/14/2024 9:22 AM CDT [facility] HEMATOCRIT (HCT) 32.9(L) 36.0 - 47.0 % 11/14/2024 9:22 AM CDT [facility] MCV 90.4 82.0 - 96.0 fL 11/14/2024 9:22 AM CDT [facility] MCH 29.7 26.0 - 34.0 pg 11/14/2024 9:22 AM CDT [facility] MCHC 32.8 31.0 - 36.0 g/dL 11/14/2024 9:22 AM CDT [facility] PLATELET COUNT 578(H) 140 - 440 10(3)/mcL 11/14/2024 9:22 AM CDT [facility] RDW 13.3 11.8 - 15.5 % 11/14/2024 9:22 AM CDT [facility] MPV 10.6 9.7 - 12.4 fL 11/14/2024 9:22 AM CDT [facility] NRBC PER 100 WBC 0 11/14/2024 9:22 AM CDT [facility] RESULTS ARE CONSISTENT WITH PERIPHERAL SMEAR REVIEW Yes 11/14/2024 9:22 AM CDT [facility] RBC MORPHOLOGY CONSISTENT WITH INDICES Yes 11/14/2024 9:22 AM CDT [facility] Blood Venipuncture / Unknown 11/14/2024 7:53 AM CDT 11/14/2024 8:40 AM CDT us Andrei Yao DO HEMATOLOGY ORDERABLES F inal Result [facility] [address] [place] [address] * CMP (Comprehensive Metabolic Panel) (11/14/2024 7:53 AM CDT) Only the most recent of2 resultswithin the time period is included. SODIUM 141 136 - 145 mmol/L 11/14/2024 9:07 AM CDT [facility] POTASSIUM 3.5 3.5 - 5.1 mmol/L 11/14/2024 9:07 AM CDT [facility] CHLORIDE 106 98 - 107 mmol/L 11/14/2024 9:07 AM CDT [facility] CO2, VENOUS 25 22 - 30 mmol/L 11/14/2024 9:07 AM CDT [facility] ANION GAP 13.5 <18.0 mmol/L 11/14/2024 9:07 AM CDT [facility] GLUCOSE 97 70 - 99 mg/dL 11/14/2024 9:07 AM [facility] BUN 17 5 - 18 mg/dL 11/14/2024 9:07 AM [facility] CREATININE, BLOOD 0.85 0.60 - 1.00 mg/dL 11/14/2024 9:07 AM [facility] BUN/CREATININE RATIO 20 12 - 20 ratio 11/14/2024 9:07 AM [facility] TOTAL PROTEIN 7.5 6.0 - 8.0 g/dL 11/14/2024 9:07 AM [facility] ALBUMIN 3.7 3.5 - 5.0 g/dL 11/14/2024 9:07 AM [facility] A/G RATIO 1.0 1.0 - 2.2 11/14/2024 9:07 AM [facility] CALCIUM 9.0 8.7 - 10.5 mg/dL 11/14/2024 9:07 AM [facility] T BILI 0.2 0.2 - 1.2 mg/dL 11/14/2024 9:07 AM [facility] SGOT (AST) 23 <43 U/L 11/14/2024 9:07 AM [facility] SGPT (ALT) 18 <56 U/L 11/14/2024 9:07 AM [facility] ALKALINE PHOSPHATASE 83 40 - 150 U/L 11/14/2024 9:07 AM [facility] GFR, ESTIMATED >60 >=60 11/14/2024 9:07 AM [facility] Comment: Creatinine Clearance is the preferred criteria for selecting drug dose adjustments in renally impaired patients. The GFR is provided as additional pertinent clinical information. GFR is reported in mL/min/1.73 sq m. Calculation based on the Chronic Kidney Disease Epidemiology Collaboration (CKD- EPI) equation refit without adjustment for race. GFR, EST. >60 >=60 025 9:07 AM CDT [facility] GFR, EST. NONAFRICAN >60 >=60 11/14/2024 9:07 AM CDT [facility] Blood Venipuncture / Unknown 11/14/2024 7:53 AM CDT 11/14/2024 8:40 AM CDT us Andrei Yao DO CHEMISTRY ORDERABLES Fi nal Result Performing Organization Address City/[facility] Co de Phone Number [facility] [address] [place] [address] * EKG SCAN (11/14/2024 12:00 AM CDT) 11/14/2024 us Provider Scan IMG ECG ORDERABLES Final Result Performing Organization Address [facility] de Phone Number RESULTING AGENCY * (ABNORMAL) BMP with Ca, Total (11/12/2024 4:23 AM CDT) Only the most recent of3 resultswithin the time period is included. SODIUM 141 136 - 145 mmol/L 11/12/2024 5:58 AM CDT [facility] POTASSIUM 3.6 3.5 - 5.1 mmol/L 11/12/2024 5:58 AM CDT [facility] CHLORIDE 109(H) 98 - 107 mmol/L 11/12/2024 5:58 AM CDT [facility] CO2, VENOUS 23 22 - 30 mmol/L 11/12/2024 5:58 AM CDT [facility] ANION GAP 12.6 <18.0 mmol/L 11/12/2024 5:58 AM CDT [facility] GLUCOSE 77 70 - 99 mg/dL 11/12/2024 5:58 AM CDT [facility] BUN 12 5 - 18 mg/dL 11/12/2024 5:58 AM CDT [facility] CREATININE, BLOOD 0.95 0.60 - 1.00 mg/dL 11/12/2024 5:58 AM CDT [facility] BUN/CREATININE RATIO 13 12 - 20 ratio 11/12/2024 5:58 AM CDT [facility] CALCIUM 8.4(L) 8.7 - 10.5 mg/dL 11/12/2024 5:58 AM CDT [facility] GFR, ESTIMATED >60 >=60 11/12/2024 5:58 AM CDT [facility] Comment: Creatinine Clearance is the preferred criteria for selecting drug dose adjustments in renally impaired patients. The GFR is provided as additional pertinent clinical information. GFR is reported in mL/min/1.73 sq m. Calculation based on the Chronic Kidney Disease Epidemiology Collaboration (CKD- EPI) equation refit without adjustment for race. GFR, EST. >60 >=60 025 5:58 AM CDT [facility] GFR, EST. NONAFRICAN >60 >=60 11/12/2024 5:58 AM CDT [facility] Blood Venipuncture / Unknown 11/12/2024 4:23 AM CDT 11/12/2024 5:34 AM CDT us Amy Villeda APRN, MANAGER GLOBAL CHEMISTRY ORDERABLES Final Result [facility] [address] [place] [address] * Culture, Blood (11/11/2024 5:38 PM CDT) Only the most recent of2 resultswithin the time period is included. CULTURE RESULTS NO GROWTH WITHIN 5 DAYS, FINAL RESULT 11/16/2024 6:01 PM CDT [facility] Culture (Peripheral Vein) Venipuncture / Unknown 11/11/2024 5:38 PM CDT 11/11/2024 5:40 PM CDT us Sanjay Reed MD MICROBIOLOGY - GENERAL O RDERABLES Final Result [facility] [address] [place] [address], [place] * RHYTHM STRIP (2024 12:00 AM [...] mm. No pericholecystic fluid. No positive sonographic [place] sign reported. BILIARY: There is no intrahepatic or extrahepatic biliary ductal dilatation. Common bile duct measures 0.2 cm in diameter. OTHER: No other significant findings. THIS IS AN ELECTRONICALLY VERIFIED FINAL REPORT 11/09/2024 1:54 PM - Electronically signed by Sparkle Leblanc M.D. FT: FT Report ID: [id number] Reading Location: [id number] Procedure Note Sparkle Zelaya MD - 11/09/2024 [...] mm. No pericholecystic fluid. No positive sonographic [place] sign reported. BILIARY: There is no intrahepatic or extrahepatic biliary ductal dilatation. Common bile duct measures 0.2 cm in diameter. OTHER: No other significant findings. THIS IS AN ELECTRONICALLY VERIFIED FINAL REPORT 11/09/2024 1:54 PM - Electronically signed by Sparkle Leblanc M.D. FT: FT Report ID: [id number] Reading Location: [id number] IMPRESSION: Biliary sludge and borderline gallbladder wall thickening. No pericholecystic fluid or positive sonographic Fernando's sign. Findings are equivocal for acute cholecystitis. If there is persistent clinical concern, HIDA scan may be performed. us Mike Parra MD [facility] [place] ORDERABLES Fin al Result * (ABNORMAL) Renal Function Panel (11/09/2024 4:23 AM CDT) SODIUM 138 136 - 145 mmol/L 11/09/2024 7:21 AM CDT [facility] POTASSIUM 3.3(L) 3.5 - 5.1 mmol/L 11/09/2024 7:[facility] 107 98 - 107 mmol/L 11/09/2024 7:21 AM [facility] CO2, VENOUS 20(L) 22 - 30 mmol/L 11/09/2024 7:21 AM [facility] ANION GAP 14.3 <18.0 mmol/L 11/09/2024 7:21 AM [facility] GLUCOSE 85 70 - 99 mg/dL 11/09/2024 7:21 AM [facility] BUN 37(H) 5 - 18 mg/dL 11/09/2024 7:21 AM [facility] CREATININE, BLOOD 2.43(H) 0.60 - 1.00 mg/dL 11/09/2024 7:21 AM [facility] BUN/CREATININE RATIO 15 12 - 20 ratio 11/09/2024 7:21 AM [facility] ALBUMIN 3.0(L) 3.5 - 5.0 g/dL 11/09/2024 7:21 AM [facility] CALCIUM 8.3(L) 8.7 - 10.5 mg/dL 11/09/2024 7:21 AM [facility] PHOSPHORUS 4.4 2.5 - 4.5 mg/dL 11/09/2024 7:21 AM [facility] GFR, ESTIMATED 24(L) >=60 11/09/2024 7:21 AM [facility] Comment: Creatinine Clearance is the preferred criteria for selecting drug dose adjustments in renally impaired patients. The GFR is provided as additional pertinent clinical information. GFR is reported in mL/min/1.73 sq m. Calculation based on the Chronic Kidney Disease Epidemiology Collaboration (CKD- EPI) equation refit without adjustment for race. GFR, EST. 26(L) >=60 025 7:21 AM [facility] GFR, EST. NONAFRICAN 21(L) >=60 11/09/2024 7:21 AM [facility] Blood Venipuncture / Unknown 11/09/2024 4:23 AM CDT 11/09/2024 5:57 AM CDT Gia Walton APRN, MANAGER GLOBAL CHEMISTRY ORDERABLES Belia l Result Performing Organization Address City/[facility]/ZIP Co de Phone Number [facility] [address] [place] [address] * Magnesium (Mg) (11/09/2024 4:23 AM CDT) Only the most recent of2 resultswithin the time period is included. MAGNESIUM 2.6 1.6 - 2.6 mg/dL 11/09/2024 7:21 AM CDT [facility] Blood Venipuncture / Unknown 11/09/2024 4:23 AM CDT 11/09/2024 5:57 AM CDT Gia Walton APRN, MANAGER GLOBAL CHEMISTRY ORDERABLES Belia l Result Performing Organization Address [facility] Co de Phone Number [facility] [address] [place] [address] * CT RENAL STONE STUDY (ABDOMEN AND [...] Liv Lauren M.D. SN: SN Report ID: [id number] Reading Location: [id number] Procedure Note Liv Lauren MD - 11/09/2024 [...] by Liv Lauren M.D. SN: Report ID: [id number] Reading Location: [place] [address] IMPRESSION: No acute intra-abdominal or pelvic abnormality seen. Daniel catheter and rectal tube in place. Tiny fat containing periumbilical hernia. Gia Walton APRN, JAMAL IMG CT ORDERABLES Final R esult * CONSULT - OTHER (11/09/2024 12:00 AM CDT) Only the most recent of4 resultswithin the time period is included. 11/09/2024 us Provider Scan GENERIC SCAN ORDERS CONSULT Belia back Result SCAN * (ABNORMAL) C. DIFF BY PCR (11/08/2024 11:25 PM CDT) C DIFF TOXIN DNA BY PCR Positive(A ) Negative, Invalid 11/09/2024 1:37 AM CDT [facility] Comment:Please see Reflex C. diff Quik Chek Complete order results Other STOOL SPECIMEN / Unknown Non-Phlebotomy Collection / Unknown 11/08/2024 11:25 PM CDT 11/08/2024 11:49 PM CDT Gia Walton APRN, JAMAL MICROBIOLOGY - GENERAL OR DERABLES Final Result Performing Organization Address City/[facility]/ZIP Co de Phone Number [facility] [address] [place] [address] * REFLEX C DIFF QUIK CHEK COMPLETE (11/08/2024 11:25 PM CDT) TOXIN A/B Negative Negative, INVALID, Not Applicable 11/09/2024 1:37 AM CDT [facility] Comment:These results are mullen ggestive [...] MICROBIOLOGY - GENERAL OR DERABLES Final Result [facility] [address] [place] [address] * Culture, Stool (11/08/2024 11:25 PM CDT) CULTURE RESULTS NEGATIVE FOR CAMPYLOBACTER ANTIGEN 2024 3:41 PM CDT [facility] CULTURE RESULTS SHIGA TOXIN 1 AND SHIGA TOXIN 2 NOT DETECTED 2024 3:41 PM CDT [facility] CULTURE RESULTS Heavy Mixed genesis 2024 3:41 PM CDT [facility] Culture STOOL SPECIMEN / Unknown Non-Phlebotomy Collection / Unknown 11/08/2024 11:25 PM CDT 11/08/2024 11:49 PM CDT Narrative [facility] - 2024 3:41 PM CDT Unless stated above as an isolate, no Salmonella, Shigella, E Coli O157, Aeromonas, or Pleisiomonas species isolated us Gia Walton APRN, CNP MICROBIOLOGY - GENERAL OR DERABLES Final Result Performing Organization Address [facility] de Phone Number [facility] [address] [place] [address], [place] * Ur Sodium (Na) Random (11/08/2024 11:24 PM CDT) SODIUM, RANDOM URINE 42 mmol/L 11/09/2024 2:45 PM CDT [facility] Comment:No reference range h as been established. Consider Clinical Correlation. Urine Non-Phlebotomy Collection / Unknown 11/08/2024 11:24 PM CDT 11/08/2024 11:48 PM CDT us Gia Walton APRN, CNP URINE ORDERABLES Final Re sult Performing Organization Address [facility] de Phone Number [facility] [address] [place] [address], [place] * Ur Potassium (K) Random (11/08/2024 11:24 PM CDT) UR POTASSIUM, RANDOM 21 mmol/L 11/09/2024 2:45 PM CDT [facility] Comment:No reference range h as been established. Consider Clinical Correlation. Urine Non-Phlebotomy Collection / Unknown 11/08/2024 11:24 PM CDT 11/08/2024 11:48 PM CDT us Gia Walton APRN, CNP URINE ORDERABLES Final Re sult Performing Organization Address City/[facility] de Phone Number [facility] [address] [place] [address], [place] * Ur Osmolality (11/08/2024 11:24 PM CDT) OSMOLALITY, URINE 271 50 - 1,400 mOsm/kg 11/09/2024 3:27 PM CDT [facility] Urine Non-Phlebotomy Collection / Unknown 11/08/2024 11:24 PM CDT 11/08/2024 11:48 PM CDT Gia Walton APRN, JAMAL URINE ORDERABLES Final Re sult Performing Organization Address [facility] de Phone Number [facility] [address] [place] [address], [place] * Ur Chloride (Cl) Random (11/08/2024 11:24 PM CDT) CHLORIDE, RANDOM URINE 29 mmol/L 11/09/2024 2:45 PM CDT [facility] Comment:No reference range h as been established. Consider Clinical Correlation. Urine Non-Phlebotomy Collection / Unknown 11/08/2024 11:24 PM CDT 11/08/2024 11:48 PM CDT us Gia Walton APRN, MANAGER GLOBAL URINE ORDERABLES Final Re sult Performing Organization Address [facility] Co de Phone Number [facility] [address] [place] [address], [place] * (ABNORMAL) IRON,TRANSFERN,CALC.TIBC,%SAT (11/08/2024 10:05 PM CDT) IRON 9(L) 25 - 156 mcg/dL 11/08/2024 11:59 PM CDT [facility] TRANSFERRIN 125(L) 180 - 382 mg/dL 11/08/2024 11:59 PM CDT [facility] TIBC, CALCULATED 156(L) 265 - 497 mcg/dL 11/08/2024 11:59 PM CDT [facility] % SATURATION * 6(L) 15 - 62 % 11/08/2024 11:59 PM CDT [facility] Blood Venipuncture / Unknown 11/08/2024 10:05 PM CDT 11/08/2024 10:14 PM CDT us Gia Walton APRN, MANAGER [employer]MI[employer] ORDERABLES Belia l Result [facility] [address] [place] [address] * Vitamin B12 (11/08/2024 10:05 PM CDT) VITAMIN B12 238 213 - 816 pg/mL 11/09/2024 12:29 AM CDT [facility] Blood Venipuncture / Unknown 11/08/2024 10:05 PM CDT 11/08/2024 10:14 PM CDT us Gia Walton APRN, MANAGER [employer]MI[employer] ORDERABLES Belia l Result Performing Organization Address [facility] Co de Phone Number [facility] [place] [address] * Osmolality Serum (11/08/2024 10:05 PM CDT) OSMOLALITY 295 275 - 295 mOsm/kg 11/09/2024 2:51 PM CDT [facility] Blood Venipuncture / Unknown 11/08/2024 10:05 PM CDT 11/08/2024 10:14 PM CDT Narrative [facility] - 11/09/2024 2:51 PM CDT Result is an averaged value us Gia Walton APRN, MANAGER [employer]MI[employer] ORDERABLES Belia l Result Performing Organization Address City/[facility]/ZIP Co de Phone Number [facility] [address] [place] [address], [place] * Lactic Acid (Lactate) (11/08/2024 10:05 PM CDT) LACTIC ACID 0.9 0.7 - 2.0 mmol/L 11/08/2024 11:18 PM CDT [facility] Blood Venipuncture / Unknown 11/08/2024 10:05 PM CDT 11/08/2024 10:13 PM CDT Gia Walton APRN, MANAGER GLOBAL CHEMISTRY ORDERABLES Belia l Result [facility] [address] [place] [address] * FOLIC ACID (FOLATE) (11/08/2024 10:05 PM CDT) FOLATE 11.1 7.0 - 31.4 ng/mL 11/09/2024 12:29 AM CDT [facility] Blood Venipuncture / Unknown 11/08/2024 10:05 PM CDT 11/08/2024 10:14 PM CDT Gia Walton APRN, MANAGER GLOBAL CHEMISTRY ORDERABLES Belia l Result Performing Organization Address City/[facility]/ZIP Co de Phone Number [facility] [address] [place] [address] * (ABNORMAL) Ferritin (11/08/2024 10:05 PM CDT) FERRITIN 815(H) 5 - 204 ng/mL 11/09/2024 12:29 AM CDT [facility] Blood Venipuncture / Unknown 11/08/2024 10:05 PM CDT 11/08/2024 10:14 PM CDT Gia Walton AUTOMAT CAR ATTENDANT, MANAGER GLOBAL CHEMISTRY ORDERABLES Belia l Result [facility] [address] [place] [address] * US - ABDOMEN/PELVIS (10/21/2024 12:00 AM [...] C. difficile 11/08/2024 11/08/2024 Insurance MEDICAID [employer] [facility] Advance Directives Documents on File Type Date Recorded Patient Civil Service Clerk Expl anation Power of Gas Welding Equipment Mechanic for Health Care 2024 3:05 PM POA-HC, 10/31/2024 * Full Code (Latest Code Status on File) Date Activated Date Inactivated Comments 11/08/2024 9:33 PM CPR-Full Treatm ent: FULL ARREST: Attempt Resuscitation/CPR wit intubation and mechanical ventilation. PRE-ARREST: Use entire range of life support measures to stabilize the patient. Care Teams Set Up Mechanic Automatic Line Relationship Specialty Start Date End Date Joellen Shepherd, AUTOMAT CAR ATTENDANT, MANAGER GLOBAL [address] [place] [address] PCP - General Advanced Practice Nurse 11/09/24
--- OUTSIDE RECORDS SUMMARY | 2024-12-08 14:50 | XMS_ITS | Encounter Summary ---
Author Organization [facility] Address [address] [place] [address] Care Team Providers Care Director Of Testing Name Role Phone Gregorysherley Milan Primary Care Provider [phone] Reason for Visit * Auth/Cert (Routine) Specialty Diagnoses / Procedures Referred By Clint robbins Referred To Contact Home Health Services Referral ID Status Reason Start Date Expiration Date Visits Re quested Visits Authorized [id number] 1 Encounter Details Date Type Department Care Team (Late st Contact Info) Description 12/07/2024 2:00 PM CDT Home Care Visit [facility] Home Care [address] [place] [address] Maryjo Machado, PT [address] [place], [place] [address] CASE COMMUNICATION Social History Tobacco Use Types Packs/Day Years Used Date Smoking Tobacco: Every Day Cigarettes Smokeless Tobacco: Never Alcohol Use Standard Drinks/Week Comments Not Currently 0 (1 standard drink = 0.6 oz pure alcohol) pt states quit drinking approx one month ago OASIS D0700: Social Isolation Answer Da te Recorded Frequency of experiencing loneliness or isolatio n Never 12/05/2024 OASIS A1250: Transportation Answer Date Recorded Lack of Transportation (Medical) Yes 12/05/2024 Lack of Transportation (Non-Medical) No 12/05/2024 Patient Unable or Declines to Respond No 12/05/2024 OASIS B1300: Health Literacy Answer Lv e Recorded Frequency of needing help to read materials from doctor or pharmacy Never 12/05/2024 Comments No Sex and Gender Information Value Date Recorded Sex Assigned at Female 11/08/2024 10:21 AM CDT Legal Sex Female 1:42 AM CDT Gender Identity Not on file Sexual Orientation Not on file documented as of this encounter Plan of Treatment Upcoming Encounters Date Type Department Care Team (Late st Contact Info) Description 12/15/2024 9:00 AM CDT Home Care Visit [address] [place] [address] [place] [address] Princess Garcia, RN [phone] (Work) 12/22/2024 8:00 AM CDT Appointment [address] [place] [address] [place] [address] Princess Garcia, RN [phone] (Work) documented as of this encounter Visit Diagnoses Not on filedocumented in this encounter Additional Health Concerns Infection Onset Date Last Indicated Resolved Time C. difficile 11/08/2024 11/08/2024 documented as of this encounter Care Teams Director Of Testing Relationship Specialty Start Date End Date Milan Heredia DO [address] [place] [address] PCP - General FAMILY PRACTICE 12/01/24 documented as of this encounter
--- OUTSIDE RECORDS SUMMARY | 2024-12-08 14:50 | XMS_ITS | Clinical Summary ---
Author Organization [facility] Address [address] [place] [address] Care Team Providers Care Section Gang Name Role Phone GregoryMilan lepe Primary Care Provider [phone] Allergies Active Allergy Reactions Criticality Noted Date Comments Levofloxacin Unknown 11/08/2024 Oxycodone Itching,GI Upset 11/08/2024 Penicillins Itching,Throat swelling 12/05/2024 Sulfa Antibiotics GI Upset 12/05/2024 Medications traZODone (DESYREL) 50 MG tabletIndicatio ns:Sleep disorders Take 50 mg by mouth nightly at bedtime. Indications: Sleep disorders 5 Active tamsulosin (FLOMAX) 0.4 MG CapIndications: Urinary Retention Take 0.4 mg by mouth daily. Indications: Urinary Retention 5 Active NIFEdipine ER (ADALAT CC) 30 MG 24 hr tabletIndicatio ns:Hypertension Take 30 mg by mouth daily. Indications: High Blood Pressure 5 Active oxybutynin XL (DITROPAN-XL) 5 MG 24 hr tabletIndicatio ns:Urinary Retention Take 5 mg by mouth daily. Indications: Urinary Retention 5 Active ferrous sulfate, 65 mg elemental, 325 (65 FE) MG tabletIndicatio ns:Anemia Take 325 mg by mouth daily with breakfast. Indications: Anemia 5 Active hydrOXYzine (ATARAX) 25 MG tabletIndicatio ns:Anxiety Take 25 mg by mouth every 8 (eight) hours as needed. Indications: Feeling Anxious 5 Active sulfamethoxazol e-trimethoprim (BACTRIM DS) 800-160 MG tabletIndicatio ns:Antibiotic Therapy Take 2 tablets by mouth 2 (two) times daily. Indications: Infection Treatment Active traMADol (ULTRAM) 50 MG tabletIndicatio ns:Acute Pain < 3 Day Supply Take 50 mg by mouth every 6 (six) hours as needed. Indications: Acute Pain < 3 Day Supply Active ibuprofen (MOTRIN) 400 MG tabletIndicatio ns:Pain Take 400 mg by mouth every 6 (six) hours as needed. Indications: Pain Active Encounters Date Type Department Care Team Description 12/07/2024 2:00 PM CDT Home Care Visit [address] [address] Maryjo Machado PT CASE COMMUNICATION 12/06/2024 Home Care Visit [address] [address] Andreea Geiger RN CASE COMMUNICATION 12/05/2024 11:30 AM CDT Home Care Visit [address] [address] Andreea Geiger RN SN OASIS START OF CARE 12/05/2024 Plan of Care Documentation [address] [address] 12/01/[address] [address] [facility]08/[facility]24 10:25 AM CDT - 11/08/2024 6:46 PM CDT Emergency [facility] [place] [address] Sully Hatfield MD Generalized Weakness Discharge Disposition: Transfer to [facility] 11/08/2024 Travel from Last 3 Months [...] Sign Reading Time Taken Comments Blood Pressure 150/98 12/05/2024 12:02 PM CDT Pulse 82 12/05/2024 11:51 AM CDT Temperature 36.5 C (97.7 F) 12/05/2024 11:51 AM CDT Respiratory Rate 18 12/05/2024 11:51 AM CDT Oxygen Saturation 100% 12/05/2024 11:51 AM CDT Inhaled Oxygen Concentration - - Weight 59 kg (130 lb) 11/08/2024 10:25 AM CDT Height 165.1 cm (5' 5 ) 11/08/2024 10:25 AM CDT Body Mass Index 21.63 11/08/2024 10:25 AM CDT Plan of Treatment Upcoming Encounters Date Type Department Care Team (Late st Contact Info) Description 12/15/2024 9:00 AM CDT Home Care Visit [facility] [address] [place] [address] [place] [address] Princess Garcia RN [phone] (Work) 12/22/2024 8:00 AM CDT Appointment [facility] [address] [place] [address] [place] [address] Princess Garcia RN [phone] (Work) Health Maintenance Due Date Last Done Comments [...] DETECTED NOT DETECTED 11/09/2024 4:56 PM CDT [facility] PLESIOMONAS SHIGELLOIDES PCR (STOOL) NOT DETECTED NOT DETECTED 11/09/2024 4:56 PM CDT [facility] SALMONELLA PCR (STOOL) NOT DETECTED NOT DETECTED 11/09/2024 4:56 PM CDT [facility] VIBRIO PCR (STOOL) NOT DETECTED NOT DETECTED 11/09/2024 4:56 PM CDT [facility] VIBRIO CHOLERAE PCR (STOOL) NOT DETECTED NOT DETECTED 11/09/2024 4:56 PM CDT [facility] YERSINIA ENTEROCOLITICA PCR (STOOL) NOT DETECTED NOT DETECTED 11/09/2024 4:56 PM CDT [facility] ENTEROAGGREGATIVE ECOLI PCR (STOOL) NOT DETECTED NOT DETECTED 11/09/2024 4:56 PM CDT [facility] ENTEROPATHOGENIC ECOLI PCR (STOOL) NOT DETECTED NOT DETECTED 11/09/2024 4:56 PM CDT [facility] ENTEROTOXIGENIC ECOLI PCR (STOOL) NOT DETECTED NOT DETECTED 11/09/2024 4:56 PM CDT [facility] SHIGA LIKE TOXIN ECOLI PCR (STOOL) NOT DETECTED NOT DETECTED 11/09/2024 4:56 PM CDT [facility] SHIG/ENTEROINVASIVE ECOLI PCR (STOOL) NOT DETECTED NOT DETECTED 11/09/2024 4:56 PM CDT [facility] CRYPTOSPORIDIUM PCR (STOOL) NOT DETECTED NOT DETECTED 11/09/2024 4:56 PM CDT [facility] CYCLOSPORA CAYETANENSIS PCR (STOOL) NOT DETECTED NOT DETECTED 11/09/2024 4:56 PM CDT [facility] ENTAMOEBA HISTOLYTICA PCR (STOOL) NOT DETECTED NOT DETECTED 11/09/2024 4:56 PM CDT [facility] GIARDIA LAMBLIA PCR (STOOL) NOT DETECTED NOT DETECTED 11/09/2024 4:56 PM CDT [facility] ADENOVIRUS F40/41 PCR (STOOL) NOT DETECTED NOT DETECTED 11/09/2024 4:56 PM CDT [facility] ASTROVIRUS PCR (STOOL) NOT DETECTED NOT DETECTED 11/09/2024 4:56 PM CDT [facility] NOROVIRUS GI/GII PCR (STOOL) NOT DETECTED NOT DETECTED 11/09/2024 4:56 PM CDT [facility] ROTAVIRUS A PCR (STOOL) NOT DETECTED NOT DETECTED 11/09/2024 4:56 PM CDT [facility] SAPOVIRUS PCR (STOOL) NOT DETECTED NOT DETECTED 11/09/2024 4:56 PM CDT [facility] STOOL SPECIMEN / Unknown 11/08/2024 5:17 PM CDT Solange Moody MD MICROBIOLOGY - GENERAL ORDERABLE S Final Result [facility] [address] [place] [address], [place] [phone] * (ABNORMAL) CLOSTRIDIUM DIFFICILE (11/08/2024 5:17 PM CDT) GDH ANTIGEN POSITIVE(A) NEGATIVE 11/08/2024 6:20 PM CDT [facility] Comment: CALLED TO [place] [facility] ER 4.2.25 AT 0810 BY READ BACK AND VERIFIED C DIFFICILE TOXIN A&B (STOOL) POSITIVE(A) NEGATIVE 11/08/2024 6:32 PM CDT [facility] Comment: CALLED TO [place] BRUN[facility] ER 1.2.25 AT 0810 BY READ BACK AND VERIFIED COMMENT GDH POSITIVE/TOXI N A & B POSITIVE: POSITIVE FOR TOXIGENIC C. DIFFICILE. (A) GDH NEGATIVE/TOXI N A & B NEGATIVE: NEGATIVE FOR TOXIGENIC C. 11/08/2024 6:32 PM CDT [facility] Comment: CALLED TO ER CALLED PCP 4.1.25 STOOL STOOL SPECIMEN / Unknown 11/08/2024 5:17 PM CDT us Solange Moody MD BODY FLUIDS AND STOOLS ORDERABLE S Final Result [facility] [address] [place] [address], [place] [phone] * CT HEAD WO CON (11/08/2024 12:31 PM CDT) Anatomical Region Laterality Modality Head Computed Tomogra phy 11/08/2024 12:4 6 PM CDT Impressions 11/08/2024 12:47 PM CDT IMPRESSION: No CT evidence of an acute intracranial abnormality. Ordered By: SOLANGE MOODY Interpreted By: Arnaldo Cardoso MD, 11/08/2024 12:46 PM Narrative 11/08/2024 12:47 PM CDT [address] [place] [address] Examination: CT HEAD WO CON, 11/08/2024 12:31 [...] Procedure Note Arnaldo Cardoso MD - 11/08/[address] [place] [address] Examination: CT HEAD WO CON, 11/08/2024 12:31 [...] of an acute intracranial abnormality. Ordered By: SOLANGE MOODY Interpreted By: Arnaldo Cardoso MD, 11/08/2024 12:46 PM us Solange Moody MD CT Final Result * CT [...] is advised. 3. Mild hepatomegaly. Ordered By: SOLANGE MOODY Interpreted By: Ney Arevalo MD, 11/08/2024 12:51 PM Narrative 11/08/2024 1:01 PM CDT [address] [place] [address] Examination: CT of the abdomen and pelvis [...] Procedure Note Ney Arevalo MD - 11/08/2024 [facility] [address] [place] [address] Examination: CT of the abdomen and pelvis [...] appropriate isadvised. 3. Mild hepatomegaly. 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: : [id number] Requested By: SOLANGE MOODY Order Number: [id number] Reading : Jaspreet Steele Measurements Intervals [place] Rate: 113 P: 61 [place]: 112 QRS: 62 QRSD: 90 T: 215 QT: 325 QTc: 446 Interpretive Statements SINUS TACHYCARDIA WITH SHORT [place] INTERVAL LEFT VENTRICULAR HYPERTROPHY AND ST-T CHANGE nondiagnostic inferior/lateral q-waves Procedure Note Jaspreet Steele MD - 11/09/[address] [place] [place] [address] Test Date: 2024-11-08 Pat Name: ELHAM PATEL Department: 3 Room: EXAM 606 Gender: Female 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 SPEC DESCRIPTION BLOOD 11/09/19 6:[address] [facility] SPECIAL REQUESTS BLOOD-AERO BIC BOTTLE ONLY 11/08/2024 6:[address] [facility] CULTURE RESULT NO GROWTH 5 DAYS 11/13/2024 6:[address] [facility] BLOOD SPECIMEN OBTAINED FOR BLOOD CULTURE / Unknown 11/08/2024 12:03 PM CDT 11/08/2024 12:05 PM CDT us Solange Moody MD MICROBIOLOGY - GENERAL ORDERABLE S Final Result [facility] [address] [place] [address], [place] [phone] [id number] * LACTIC ACID W REFLEX (SEPSIS) (11/08/2024 11:50 AM CDT) LACTIC ACID VENOUS 1.7 0.4 - 2.0 MMOL/L 11/08/2024 12:17 PM CDT [facility] 11/08/2024 11:5 0 AM CDT us Solange Moody MD LABORATORY Final Result [facility] [address] [place] [address], [place] [phone] * TROPONIN, QUANT (11/08/2024 11:50 AM CDT) TROPONIN I HIGH SENSITIVITY 26 0 - 51 ng/L 11/08/2024 12:17 PM CDT [facility] 11/08/2024 11:5 0 AM CDT us Solange Moody MD LABORATORY Final Result Performing Organization Address City/[facility]/ZIP Co de Phone Number [facility] [address] [place] [address], * CK (CPK) (11/08/2024 11:50 AM CDT) CPK 96 26 - 192 U/L 11/08/2024 12:17 PM CDT [facility] 11/08/2024 11:5 0 AM CDT us Solange Moody MD LABORATORY Final Result Performing Organization Address City/[facility] Co de Phone Number [facility] [address] [place] [address], * (ABNORMAL) DRUG SCREEN RAPID (11/08/2024 11:21 AM CDT) Pathologist [facility] CANNABINOIDS SCREEN (U) NEGATIVE NEGATIVE 11/08/2024 11:41 AM CDT [facility] PHENCYCLIDINE PCP (U) NEGATIVE NEGATIVE 11/08/2024 11:41 AM CDT [facility] COCAINE METABOLITES (U) NEGATIVE NEGATIVE 11/08/2024 11:41 AM CDT [facility] METHAMPHETAMINE SCREEN (U) POSITIVE(A) NEGATIVE 11/08/2024 11:41 AM CDT [facility] OPIATE SCREEN (U) NEGATIVE NEGATIVE 025 11:41 AM CDT [facility] AMPHETAMINE SCREEN (U) POSITIVE(A) NEGATIVE 11/08/2024 11:41 AM CDT [facility] BENZODIAZEPINES SCREEN (U) POSITIVE(A) NEGATIVE 11/08/2024 11:41 AM CDT [facility] TRICYCLIC ANTIDEPRESSANT SCREEN (U) NEGATIVE NEGATIVE 11/08/2024 11:41 AM CDT [facility] METHADONE (U) NEGATIVE NEGATIVE 11/08/2024 11:41 AM CDT [facility] BARBITURATES SCREEN (U) NEGATIVE NEGATIVE 11/08/2024 11:41 AM CDT [facility] OXYCODONE SCREEN (U) POSITIVE(A) NEGATIVE 11/08/2024 11:41 AM CDT [facility] URINE TOX COMMENT THIS TEST METHODOLOGY IS DESIGNED AND OFFERED A RAPID TURNAROUND, QUALITATIVE SCREENING PROCEDURE TO AID IN THE IMMEDIATE MEDICAL ASSESSMENT OF PATIENTS SUSPECTED OF SUBSTANCE ABUSE. 11/08/2024 11:20 AM CDT [facility] Comment: CLINICAL CONSIDERATION AND PROFESSIONAL JUDGMENT MUST BE APPLIED TO ANY DRUG OF ABUSE TEST RESULT, BOTH POSITIVE AND NEGATIVE. CONFIRMATORY QUANTITATIVE RESULTS ARE AVAILABLE THROUGH OUR [facility]. URINE SPECIMEN / Unknown 11/08/2024 11:21 AM CDT Solange Moody MD URINE ORDERABLES Final Result [facility] [address] [place] [address], * (ABNORMAL) URINALYSIS (11/08/2024 11:21 AM CDT) COLOR (U) YELLOW 11/08/2024 11:42 AM CDT [facility] TRANSPARENCY CLEAR 11/08/2024 11:42 AM CDT [facility] SPECIFIC GRAVITY (U) 1.025 1.000 - 1.025 11/08/2024 11:42 AM CDT [facility] U PH 8.5(H) 5.0 - 8.0 11/08/2024 11:42 AM CDT [facility] LEUKOCYTES (U) 2+(A) NEGATIVE 11/08/2024 11:42 AM CDT [facility] NITRITES NEGATIVE NEGATIVE 11/08/2024 11:42 AM CDT [facility] PROTEIN RANDOM (U) 3+(A) NEGATIVE 11/08/2024 11:42 AM CDT [facility] GLUCOSE (U) NEGATIVE NEGATIVE 11/08/2024 11:42 AM CDT [facility] KETONES MG/DL (U) NEGATIVE NEGATIVE 11/08/2024 11:42 AM CDT [facility] UROBILINOGEN 0.2 <1.0 EU/DL 11/08/2024 11:42 AM CDT [facility] BILIRUBIN (U) NEGATIVE NEGATIVE 11/08/2024 11:42 AM CDT [facility] BLOOD (U) 2+(A) NEGATIVE 11/08/2024 11:42 AM CDT [facility] WBC/HPF 10-20(A) 0 - 5 /HPF 11/08/2024 11:42 AM CDT [facility] RBC/HPF 10-20(A) 0 - 5 /HPF 11/08/2024 11:42 AM CDT [facility] EPI/LPF RARE /LPF 11/08/2024 11:42 AM CDT [facility] BACTERIA (U) 3+ /HPF 11/08/2024 11:42 AM CDT [facility] URINE SPECIMEN OBTAINED BY CLEAN CATCH PROCEDURE / Unknown 11/08/2024 11:21 AM CDT us Solange Moody MD URINE ORDERABLES Final Result [facility] [address] [place] [address], * CULTURE URINE (11/08/2024 11:21 AM CDT) SPEC DESCRIPTION URINE CLEAN CATCH 11/08/2024 11:20 AM CDT [facility] SPECIAL REQUESTS NO SPECIAL REQUEST 11/08/2024 11:20 AM CDT [facility] CULTURE RESULT >25,000 TO 50,000 CFU/mL PSEUDOMONAS AERUGINOSA 2024 9:[address] [facility] URINE SPECIMEN OBTAINED BY CLEAN CATCH [...] Pseudomonas aeruginosa AZTREONAM MACHELLE (KB) Sensitive us Solange Moody MD MICROBIOLOGY - GENERAL ORDERABLE S Final Result [facility] [address] [place] [address], [place] [phone] [facility] [address] [place] [address], * (ABNORMAL) COMPREHENSIVE METABOLIC PANEL (11/08/2024 10:53 AM CDT) SODIUM S/P/B 135(L) 136 - 145 MMOL/L 11/08/2024 11:35 AM CDT [facility] POTASSIUM S/P/B 4.3 3.5 - 5.1 MMOL/L 11/08/2024 11:35 AM CDT [facility] CHLORIDE S/P/B 99 98 - 107 MMOL/L 11/08/2024 11:35 AM CDT [facility] CO2 20.9(L) 21.0 - 32.0 MMOL/L 11/08/2024 11:35 AM CDT [facility] GLUCOSE 94 70 - 99 MG/DL 11/08/2024 11:35 AM CDT [facility] Comment: FASTING GLUCOSE 100 TO 125 MG/DL IS CONSISTENT WITH IMPAIRED FASTING GLUCOSE. FASTING GLUCOSE >125 MG/DL IS CONSISTENT WITH DIABETES. RANDOM GLUCOSE >200 MG/DL WITH HYPERGLYCEMIC SYMPTOMS IS CONSISTENT WITH DIABETES. PER ADA GUIDELINES BUN 39(H) 6 - 24 MG/DL 11/08/2024 11:[address] [facility] CREATININE S/P/B 3.52(H) 0.55 - 1.02 MG/DL 11/08/2024 11:[address] [facility] CALCIUM S/P/B 8.0(L) 8.4 - 10.5 MG/DL 11/08/2024 11:[address] [facility] BILIRUBIN TOTAL S/P/B 0.4 0.2 - 1.0 MG/DL 11/08/2024 11:[address] [facility] Comment: THIS ASSAY IS NOT RECOMMENDED FOR PATIENTS UNDERGOING TREATMENT WITH ELTROMBOPAG DUE TO THE POTENTIAL FOR FALSELY ELEVATED RESULTS. ALKALINE PHOSPHATASE S/P/B 88 39 - 100 U/L 11/08/2024 11:[address] [facility] AST 12(L) 15 - 37 U/L 11/08/2024 11:[address] [facility] ALT 15 14 - 59 U/L 11/08/2024 11:[address] [facility] TOTAL PROTEIN S/P/B 5.5(L) 6.4 - 8.2 G/DL 11/08/2024 11:[address] [facility] ALBUMIN S/P/B 2.0(L) 3.4 - 5.0 G/DL 11/08/2024 11:[address] [facility] ANION GAP 15.1(H) 5.0 - 15.0 MMOL/L 11/08/2024 11:[address] [facility] OSMOLALITY (CALC) 289 MOSM/KG 025 11:[address] [facility] Comment:REFERENCE RANGE NOT ESTABLISHED GFR ESTIMATE 15(L) >89 ML/MIN/1. 73 M2 11/08/2024 11:[address] [facility] GFR NOTES GFR REFERENCE S: 11/08/2024 11:[address] [facility] Comment: THE ESTIMATED GFR IS [...] m2 11/08/2024 10:5 3 AM CDT us Solange Moody MD LABORATORY Final Result [facility] [address] [place] [address], * HCG QUANT (SERUM)-CHORIONIC GONADOTROPIN (11/08/2024 10:53 AM CDT) HCG QUANTITATIVE 1 0.0 - 6.0 MIU/ML 11/08/2024 11:35 AM CDT [facility] Comment:NON- FEMALE 0-6 11/08/2024 10:5 3 AM CDT us Solange Moody MD LABORATORY Final Result Performing Organization Address City/[facility]/ZIP Co de Phone Number [facility] [address] [place] [address], [place] [phone] * (ABNORMAL) CBC W/DIFF AUTOMATED (11/08/2024 10:53 AM CDT) WBC 20.30(H) 4.00 - 10.80 x10'3/uL 11/08/2024 11:05 AM CDT [facility] RBC 3.14(L) 4.10 - 5.40 x10'6/uL 11/08/2024 11:05 AM CDT [facility] HGB 9.8(L) 12.0 - 16.0 G/DL 11/08/2024 11:05 AM CDT [facility] HCT 29.3(L) 36.0 - 47.0 % 11/08/2024 11:05 AM CDT [facility] MCV 93.3 78.0 - 100.0 FL 11/08/2024 11:05 AM CDT [facility] MCH 31.2(H) 27.0 - 31.0 PG 11/08/2024 11:05 AM T [facility] MCHC 33.4 33.0 - 36.0 G/DL 11/08/2024 11:05 AM T [facility] RDW 14.4 11.5 - 14.5 % 11/08/2024 11:05 AM T [facility] PLT 293 150 - 350 x10'3/uL 11/08/2024 11:05 AM T [facility] MPV 11.3(H) 7.4 - 10.4 FL 11/08/2024 11:05 AM T [facility] CBC COMMENT NORMAL REFERENCE RANGE NOT ESTABLISHED FOR THE PROPORTIONAL LEUKOCYTE DIFFERENTIAL. 11/08/2024 11:05 AM T [facility] NEUTROPHILS % 86.6 % 11/08/2024 11:05 AM T [facility] LYMPHOCYTES % 4.8 % 11/08/2024 11:[address] [facility] MONOCYTES % 7.5 % 11/08/2024 11:[address] [facility] EOSINOPHILS % 0.1 % 11/08/2024 11:05 AM T [facility] BASOPHILS % 0.2 % 11/08/2024 11:05 AM T [facility] IMMATURE GRANS % 0.8 % 11/09/19 11:05 AM T [facility] NRBC % 0.0 % 11/08/2024 11:[address] [facility] ABS. NEUTROPHILS 17.56(H) 1.60 - 8.30 x10'3/uL 11/08/2024 11:05 AM T [facility] ABS. LYMPHOCYTES 0.98 0.80 - 4.70 x10'3/uL 11/08/2024 11:05 AM CDT [facility] ABS. MONOCYTES 1.53(H) 0.00 - 1.50 x10'3/uL 11/08/2024 11:05 AM CDT [facility] ABS. EOSINOPHILS 0.02 0.00 - 0.40 x10'3/uL 11/08/2024 11:05 AM CDT [facility] ABS. BASOPHILS 0.04 0.00 - 0.20 x10'3/uL 11/08/2024 11:05 AM CDT [facility] ABS. IMMATURE GRANULOCYTES 0.17(H) 0.00 - 0.03 x10'3/uL 11/08/2024 11:05 AM CDT [facility] ABS. NUCLEATED RBC'S 0.00 0.00 - 0.01 x10'3/uL 11/08/2024 11:05 AM CDT [facility] 11/08/2024 10:5 3 AM CDT us Solange Moody MD [place] [address], * (ABNORMAL) MAGNESIUM (11/08/2024 10:53 AM CDT) MAGNESIUM 1.2(L) 1.8 - 2.4 MG/DL 11/08/2024 11:42 AM CDT [facility] 11/08/2024 10:5 3 AM CDT us Solange Moody MD LABORATORY Final Result [facility] [address] [place] [address], * LIPASE (11/08/2024 10:53 AM CDT) LIPASE 17 16 - 77 UNITS/L 11/08/2024 11:42 AM CDT [facility] 11/08/2024 10:5 3 AM CDT us Solange Moody MD LABORATORY Final Result [facility] [place] [address], * ETHANOL (11/08/2024 10:53 AM CDT) ALCOHOL S/P/B <0.003 <0.003 G/DL 11/08/2024 11:35 AM CDT [facility] 11/08/2024 10:5 3 AM CDT us Solange Moody MD LABORATORY Final Result Performing Organization Address [facility] Co de Phone Number [facility] [address] [place] [id number], from Last 3 Months Additional Health Concerns Infection Onset Date Last Indicated C. difficile 11/08/2024 11/08/[address] [place] [address] Advance Directives * Full Code (Latest Code Status on File) Date Activated Date Inactivated Comments 12/05/2024 1:34 PM Care Teams Section Gang Relationship Specialty Start Date End Date Milan Heredia DO [address] [place] [address] PCP - General FAMILY PRACTICE 12/01/24
--- OUTSIDE RECORDS SUMMARY | 2024-12-08 14:50 | XMS_ITS | Encounter Summary ---
Author Organization [facility] Address [facility] [place] [address] Care Team Providers Care Device Sales Consultant Name Role Phone MaritzaMilan todd Primary Care Provider [phone] Encounter Details Date Type Department Care Team (Late st Contact Info) Description 12/01/[address] [place] [address] [place] [address] Scanned, [facility] Social History Tobacco Use Types Packs/Day Years [...] 12/15/2024 9:00 AM CDT Home Care Visit [address] [place] [address] [place] [address] Princess Garcia RN [phone] (Work) 12/22/2024 8:00 AM CDT Appointment [address] [place] [address] [place] [address] Princess Garcia RN [phone] (Work) documented as of this encounter Visit Diagnoses Not on filedocumented in this encounter Additional Health Concerns Infection Onset Date Last Indicated Resolved Time C. difficile 11/08/2024 11/08/2024 documented as of this encounter Care Teams Device Sales Consultant Relationship Specialty Start Date End Date Milan Heredia DO [address] [place] [address] PCP - General FAMILY PRACTICE 12/01/24 documented as of this encounter
[2024-12-09 05:15] LABS: Alanine Aminotransferase 21 U/L (14-59); Albumin Level 3.8 g/dL (3.4-5.0); Alkaline Phosphatase 117 U/L (46-116); Anion Gap 10 mmol/L (4-12); Aspartate Amino Transferase 11 U/L (15-37); Bilirubin,Total 0.2 mg/dL (0.00-1.00); Blood Urea Nitrogen 25 mg/dL (7-18); Calcium 9.4 mg/dL (8.5-10.1); Carbon Dioxide 25 mmol/L (21-32); Chloride 101 mmol/L (98-108); Estimated Glomerular Filt Rate 25; Ferritin 770 ng/mL (8-252); Glucose 107 mg/dL (70-99); Iron 78 ug/dL (50-170); Magnesium 1.6 mg/dL (1.8-2.4); NT Pro B Type Natriuretic Pept 595 pg/mL (0-125); Osmolality Calculated 286 mOsm/kg (285-295); Potassium 4.5 mmol/L (3.5-5.1); Sodium 136 mmol/L (136-145); Total Protein 7.8 g/dL (6.4-8.2)
[2024-12-09 21:33] LABS: Vitamin D 25 Hydroxy 22 ng/mL (30-100)
== END 2024-12-08 14:00 | disposition home or self-care (01) ==
LOC: CHSLAB 13:59
PROVIDERS: PCP Nurse Practitioner Family; Visit Provider Nurse Practitioner Family
DX: I10 Essential (primary) hypertension (principal); D64.9 Anemia, unspecified; I50.9 Heart failure, unspecified; Z79.899 Other long term (current) drug therapy
CPT/HCPCS: 36415; 80053; 82306; 82728; 83540; 83735; 83880; 85025; 85055

== ENCOUNTER 2024-12-13 14:40 | Outpatient (CLI) | payer OTHER, SELFPAY ==
--- OUTSIDE RECORDS SUMMARY | 2024-12-13 14:43 | XMS_ITS | Encounter Summary ---
Author Organization [facility] Address [address] [place] [address] Care Team Providers Care Wardrobe Technician Name Role Phone Yan Milan Primary Care Provider [phone] Reason for Visit * Auth/Cert (Routine) Specialty Diagnoses / Procedures Referred By Clint robbins Referred To Contact Home Health Services Referral ID Status Reason Start Date Expiration Date Visits Re quested Visits Authorized [id number] 1 1 Encounter Details Date Type Department Care Team (Late st Contact Info) Description 12/05/2024 11:30 AM CDT Home Care Visit [facility] [address] [place] [address] [place] [address] Andreea Geiger RN SN OASIS START OF CARE Social History Tobacco Use Types Packs/Day Years [...] on file documented as of this encounter Last Filed Vital Signs Vital Sign Reading Time Taken Comments Blood Pressure 150/98 12/05/2024 12:02 PM CDT Pulse 82 12/05/2024 11:51 AM CDT Temperature 36.5 C (97.7 F) 12/05/2024 11:51 AM CDT Respiratory Rate 18 12/05/2024 11:51 AM CDT Oxygen Saturation 100% 12/05/2024 11:51 AM CDT Inhaled Oxygen Concentration - - Weight - - Height - - Body Mass Index - - documented in this encounter Plan of Treatment Upcoming Encounters Date Type Department Care Team (Late st Contact Info) Description 12/15/2024 12:30 PM CDT Home Care Visit [facility] [address] [place] [address] Princess Garcia, RN [phone] (Work) 12/22/2024 8:00 AM CDT Appointment [address] [place] [address] [place] [address] Princess Garcia, RN [phone] (Work) documented as of this encounter Visit Diagnoses Not on filedocumented in this encounter Additional Health Concerns Infection Onset Date Last Indicated Resolved Time C. difficile 11/08/2024 11/08/2024 documented as of this encounter Home Health Visit - Care Plan Visit Details Visit Type -SN - OASIS Start of Care Discipline -Assisted Problems Problem Description Start Date Status Goals Interve ntions Pain/Physical Discomfort Disciplines: SN Patient is experiencing pain/physical discomfort. 12/05/2024 Active 1 goal linked to scheduled/document ed intervention 2 goal interventions scheduled/document ed in this visit Collaboration of Care Disciplines: SN Collaboration for safe care. 12/05/2024 Active 4 goals linked to scheduled/document ed interventions 12 goal interventions scheduled/document ed in this visit Fall Precautions Disciplines: SN Patient at risk for falls or has had recent fall occurrence(s). 12/05/2024 Active 1 goal linked to scheduled/document ed intervention 3 goal interventions scheduled/document ed in this visit Urinary Catheter Disciplines: SN Urinary catheter due to urinary retention. 12/05/2024 Active 1 goal linked to scheduled/document ed intervention 3 goal interventions scheduled/document ed in this visit Psychosocial Status Disciplines: SN Care related to depression and anxiety. 12/05/2024 Active 1 goal linked to scheduled/document ed intervention 1 goal intervention scheduled/document ed in this visit Goals Goal Associated Problem Outcome Goal Met? Visit Notes Patient's pain/physical discomfort will be reduced to the level of patient's stated goal. Description: - Patient's pain/physical discomfort will be reduced to the level of patient's stated goal by 12/22/24. - Patient's desired pain goal is 0. - Patient will verbalize understanding of the pain management plan by 12/05/24-completed csrn 12/05/24. Pain/Physical Discomfort Progressing No Hosptial Readmission Reduction Description: Hospital Readmission Reduction - Hospital Readmission Reduction - High Risk (7 and greater risk factors). Patient's risk number is 8. Hospital Readmission will be avoided during the first 60-day episode of Homecare through frequency of assessment visits. Collaboration of Care Progressing No Patient safety met through collaboration for safe care. Description: Clinicians will communicate patient care and safety needs during episode of care through 12/22/24 Patient will verbalize understanding of when to call home care agency [phone] with questions and concerns, by.12/05/24-completed csrn 12/05/24 Collaboration of Care Progressing No Nutritional Status for Optimal Health Description: Nutritional goals: STG: Patient will verbalize importance of adequate nutrition and fluid intake by 12/05/24-completed csrn 12/05/24 LTG: Patient will demonstrate adequate nutritional status as evidenced by stabilization of weight and intake of required nutrients for optimal health and functioning by 12/22/24 Collaboration of Care Progressing No Patient verbalizes understanding of medication regimen Description: Medication regimen goals: STG: Patient and Caregiver will verbalize understanding of medication regimen by 12/05/24-completed csrn 12/05/24 LTG: Patient and caregiver will continue to compliant with medication regimen and understand medication frequenc y,dosage,and administration through12/22/24 Collaboration of Care Progressing No Patient/caregiver maintains a safe environment. Description: STG: patient will verbalise understanding of home safety and fall prevention measures for decreased fall risk by 12/05/24-completed csrn 12/05/24 LTG: Patient/caregiver will demonstrate ability to maintain a safe environment without injuries/falls by 12/22 Fall Precautions Progressing No Patient's catheter remains patent without signs/symptoms of infection Description: - Patient will demonstrate ability to manage urinary catheter by 12/05/24-completed csrn 12/05/24. - Patient's catheter will remain patent without signs/symptoms of infection through 12/22/24. Urinary Catheter Progressing No Patient will understand psychosocial needs Description: STG: Patient will verbalize understanding of depression,depressive symptoms and anxiety managment by 12/05/24-completed csrn 12/05/24 LTG: Patient will have opitmal knowledge as evidenced by patients abiliy to demonstrate needed lifestyle changes and iden tify resources by.. 12/22/24 Psychosocial Status Progressing No Interventions Intervention Associated Problem/Goal Status Variance Visit Notes Instruct on Management of Pain Description: - Teach principles of pain management and involve Patient in developing pain control regimen. - Instructed on non-pharmacological pain reduction techniques. - Instruct Patient on the cause(s) of pain. Problem:Pain/Physic al Discomfort Goal:Patient's pain/physical discomfort will be reduced to the level of patient's stated goal. Completed Teach principles of pain management and involve patient in developing pain control regimen. Instruct patient on the cause(s) of pain. Assess Pain Description: -Perform comprehensive pain assessment of patient's level of pain using Numeric pain scale and assess effectiveness of current pain regimen. -Current medical management for pain is tramadol. If no changes or concerns check complete (see Pain Assessment ). Problem:Pain/Physic al Discomfort Goal:Patient's pain/physical discomfort will be reduced to the level of patient's stated goal. Completed Hospitalization Risk Description: Instruct Patient in minimizing hospitalization risk related to More than 1 Hospitalization or ED visit in past 12 months, History of Falls, Discharged from Hospital or SNF, Needs help managing Medications, More than 2 Secondary Diagnoses, Lives Alone, A DL Assistance Needed, Dyspnea and Depression. Problem:Collaborati on of Care Goal:Hosptial Readmission Reduction Completed Assess Vital Signs Description: Obtain and record vital signs. Report to MD . BP: systolic blood pressure <90 or >160; diastolic blood pressure <60 or >90. Temperature: >100.5 F. Pulse: <60 or >100 bpm. Respiratory Rate: <12 or >28 /min. SPO2: <90%. May check SPO2 as needed for in itial assessment or dyspnea. Problem:Collaborati on of Care Goal:Patient safety met through collaboration for safe care. Completed Plan Towards Discharge Description: Document Patient progress towards discharge. Problem:Collaborati on of Care Goal:Patient safety met through collaboration for safe care. Completed Plan for Next Visit Description: Next visit plan summation Problem:Collaborati on of Care Goal:Patient safety met through collaboration for safe care. Completed Next visit scheduled 12/15/24 (date) for education, assessment (plan); Patient aware of and agreeable to plan. Advised to call Agency for non-emergent questions/concerns. Instruct Home Safety Description: Instruct patient on strategies/modificati ons to home environment. Patient up as tolerated with walker or lesser device or no device as directed. Problem:Collaborati on of Care Goal:Patient safety met through collaboration for safe care. Completed Insurance Verification Description: Verify with patient/caregiver current insurance coverage. Problem:Collaborati on of Care Goal:Patient safety met through collaboration for safe care. Completed Patient's coverage status: No change in coverage Care Coordination Description: Clinician to review plan of care with patient/caregivers(s) . Patient/Caregiver(s) agree(s) to plan of care and agrees to participate in care. Disciplines RN and PT Problem:Collaborati on of Care Goal:Patient safety met through collaboration for safe care. Completed Instruct Disaster/Evacuation Plan Description: Instruct in planning and execution of disaster/evacuation plan. Assist Patient in development or revision of plan as indicated. Problem:Collaborati on of Care Goal:Patient safety met through collaboration for safe care. Completed plan established .copy left in home Skilled Assessment Risk for Injury Description: Evaluate patient's home environment for potential safety risks, and educate Patient on identified safety risks. Problem:Collaborati on of Care Goal:Patient safety met through collaboration for safe care. Completed Instruct diet Description: Instruct on As Tolerated diet and any fluid restrictions/requirem ents. Problem:Collaborati on of Care Goal:Nutritional Status for Optimal Health Completed Medication Reconciliation Description: - Review and identify unnecessary therapeutic duplication. Each clinician to perform bottle check weekly on their first visit of the week. - Patient to take medications from pill bottles set up by Patient Problem:Collaborati on of Care Goal:Patient verbalizes understanding of medication regimen Completed Medication reconciliation performed with weekly bottle check. Medication Management Description: - Assess Patient ability to manage medications. Provide detailed instruction on proper administration and medication management. - Instruct Patient in medication administration, purpose, dosages, preparation, scheduling, side effects, food/drug & drug/drug interactions, storage, and potential complications. Problem:Collaborati on of Care Goal:Patient verbalizes understanding of medication regimen Completed Home medication management instructed with patient. Patient verbalizes understanding. Instruct on Fall Prevention Description: Educate Patient about fall prevention. Problem:Fall Precautions Goal:Patient/caregi yojana maintains a safe environment. Completed Report Falls to Provider within 24 Hours Description: Report witnessed or reported falls to provider within 24 hours . Problem:Fall Precautions Goal:Patient/caregi yojana maintains a safe environment. Completed Patient reports a fall on 12/03/24-reported to primary-no injury Assess Appropriateness for Homecare Description: Assess Patient ability to remain safe in current environment. Problem:Fall Precautions Goal:Patient/caregi yojana maintains a safe environment. Completed Instruct Catheter Cares Description: - SN to visit to teach Patient in care of silicone, uretheral catheter.- Instruct Patient on when to contact physician.- Instruct Patient on home management of urinary catheter including cleaning urinary meatus, signs/symptoms of infection, changing f rom night bag to leg bag as applicable. Problem:Urinary Catheter Goal:Patient's catheter remains patent without signs/symptoms of infection Completed Patient instructed in catheter cares. Patient verbalizes understanding . Infection Prevention Description: Instruct Patient in strategies to prevent urinary tract infection and how to recognize signs and symptoms of infection and when to notify home care agency, hospice, and/or physician. Problem:Urinary Catheter Goal:Patient's catheter remains patent without signs/symptoms of infection Completed Patient instructed on frequent/proper hand-washing techniques, Standard precautions, avoid crowds and persons with known infections, staying current with immunizations, s/s of infection, use of incentive spirometer, use of antibiotics and encourage adeq uate diet and fluid intake. Patient verbalizes understanding . Catheter Change Description: Awaiting orders from urology for catheter maintanence. 16fr 10ml silicone Problem:Urinary Catheter Goal:Patient's catheter remains patent without signs/symptoms of infection Scheduled with variance Defer to next visit Assess Psychosocial Status Description: - Assess for depression and anxiety. - Assess support systems and coping. - Refer to SALES LEAD GENERATOR as needed. - Notify physician as needed. Problem:Psychosocia l Status Goal:Patient will understand psychosocial needs Completed documented in this encounter Care Teams Wardrobe Technician Relationship Specialty Start Date End Date Milan Heredia DO [address] [place] [address] PCP - General FAMILY PRACTICE 12/01/24 documented as of this encounter
--- OUTSIDE RECORDS SUMMARY | 2024-12-13 14:43 | XMS_ITS | Clinical Summary ---
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 Name Role Phone GregoryMilan lepe Primary Care Provider [phone] Allergies Active Allergy Reactions Criticality Noted Date [...] 12/07/2024 2:00 PM CDT Home Care Visit [address] [address] Maryjo Machado PT CASE COMMUNICATION 12/06/2024 Home Care Visit [address] [address] Andreea Geiger RN CASE COMMUNICATION 12/05/2024 11:30 AM CDT Home Care Visit [address] [address] Andreea Geiger RN SN OASIS START OF CARE 12/05/2024 Plan of Care Documentation [address] [address] 12/01/[address] [address] [facility]/08/2024 10:25 AM CDT - 11/08/2024 6:46 PM CDT Emergency [place] [facility] [place] [address] Sully Hatfield MD Generalized Weakness Discharge Disposition: Transfer to [facility] ([place], [place]) 11/08/2024 Travel from Last 3 Months Social [...] 12/15/2024 12:30 PM CDT Home Care Visit [facility] [address] [place] [address] [place] [address] Princess Garcia RN [phone] (Work) 12/22/2024 8:00 AM CDT Appointment [facility] [address] [place] [address] [place] [address] Princess Garcia RN [phone] (Work) Health Maintenance Due Date Last Done [...] DETECTED NOT DETECTED 11/09/2024 4:56 PM CDT [facility] PLESIOMONAS SHIGELLOIDES PCR (STOOL) NOT DETECTED NOT DETECTED 11/09/2024 4:56 PM CDT [facility] SALMONELLA PCR (STOOL) NOT DETECTED NOT DETECTED 11/09/2024 4:56 PM CDT [facility] VIBRIO PCR (STOOL) NOT DETECTED NOT DETECTED 11/09/2024 4:56 PM CDT [facility] VIBRIO CHOLERAE PCR (STOOL) NOT DETECTED NOT DETECTED 11/09/2024 4:56 PM CDT [facility] YERSINIA ENTEROCOLITICA PCR (STOOL) NOT DETECTED NOT DETECTED 11/09/2024 4:56 PM CDT [facility] ENTEROAGGREGATIVE ECOLI PCR (STOOL) NOT DETECTED NOT DETECTED 11/09/2024 4:56 PM CDT [facility] ENTEROPATHOGENIC ECOLI PCR (STOOL) NOT DETECTED NOT DETECTED 11/09/2024 4:56 PM CDT [facility] ENTEROTOXIGENIC ECOLI PCR (STOOL) NOT DETECTED NOT DETECTED 11/09/2024 4:56 PM CDT [facility] SHIGA LIKE TOXIN ECOLI PCR (STOOL) NOT DETECTED NOT DETECTED 11/09/2024 4:56 PM CDT [facility] SHIG/ENTEROINVASIVE ECOLI PCR (STOOL) NOT DETECTED NOT DETECTED 11/09/2024 4:56 PM CDT [facility] CRYPTOSPORIDIUM PCR (STOOL) NOT DETECTED NOT DETECTED 11/09/2024 4:56 PM CDT [facility] CYCLOSPORA CAYETANENSIS PCR (STOOL) NOT DETECTED NOT DETECTED 11/09/2024 4:56 PM CDT [facility] ENTAMOEBA HISTOLYTICA PCR (STOOL) NOT DETECTED NOT DETECTED 11/09/2024 4:56 PM CDT [facility] GIARDIA LAMBLIA PCR (STOOL) NOT DETECTED NOT DETECTED 11/09/2024 4:56 PM CDT [facility] ADENOVIRUS F40/41 PCR (STOOL) NOT DETECTED NOT DETECTED 11/09/2024 4:56 PM CDT [facility] ASTROVIRUS PCR (STOOL) NOT DETECTED NOT DETECTED 11/09/2024 4:56 PM CDT [facility] NOROVIRUS GI/GII PCR (STOOL) NOT DETECTED NOT DETECTED 11/09/2024 4:56 PM CDT [facility] ROTAVIRUS A PCR (STOOL) NOT DETECTED NOT DETECTED 11/09/2024 4:56 PM CDT [facility] SAPOVIRUS PCR (STOOL) NOT DETECTED NOT DETECTED 11/09/2024 4:56 PM CDT [facility] STOOL SPECIMEN / Unknown 11/08/2024 5:17 PM CDT Solange Moody MD MICROBIOLOGY - GENERAL ORDERABLE S Final Result [facility] [address] [place] [address], [place] [phone] * (ABNORMAL) CLOSTRIDIUM DIFFICILE (11/08/2024 5:17 PM CDT) GDH ANTIGEN POSITIVE(A) NEGATIVE 11/08/2024 6:20 PM CDT [facility] Comment: CALLED TO [place] [facility] 4.2.25 AT 0810 BY READ BACK AND VERIFIED C DIFFICILE TOXIN A&B (STOOL) POSITIVE(A) NEGATIVE 11/08/2024 6:32 PM CDT [facility] Comment: CALLED TO [facility] 1.2.25 AT 0810 BY READ BACK AND VERIFIED COMMENT GDH POSITIVE/TOXI N A & B POSITIVE: POSITIVE FOR TOXIGENIC C. DIFFICILE. (A) GDH NEGATIVE/TOXI N A & B NEGATIVE: NEGATIVE FOR TOXIGENIC C. 11/08/2024 6:32 PM CDT [facility] Comment: CALLED TO ER CALLED PCP 4.1.25 STOOL STOOL SPECIMEN / Unknown 11/08/2024 5:17 PM CDT us Solange Moody MD BODY FLUIDS AND STOOLS ORDERABLE S Final Result [facility] [address] [place] [address], [place] [phone] * CT HEAD WO CON (11/08/2024 12:31 PM CDT) Anatomical Region Laterality Modality Head Computed Tomogra phy 11/08/2024 12:4 6 PM CDT Impressions 11/08/2024 12:47 PM CDT IMPRESSION: No CT evidence of an acute intracranial abnormality. Ordered By: SOLANGE MOODY Interpreted By: Arnaldo Cardoso MD, 11/08/2024 12:46 PM Narrative 11/08/2024 12:47 PM CDT [address] [place] [address] Examination: CT HEAD WO CON, 11/08/2024 12:31 [...] Procedure Note Arnaldo Cardoso MD - 11/08/[address] [place] [address] Examination: CT HEAD WO CON, 11/08/2024 12:31 [...] 12:51 PM Narrative 11/08/2024 1:01 PM CDT [address] [place] [address] Examination: CT of the abdomen and pelvis [...] Procedure Note Ney Arevalo MD - 11/08/2024 [facility] [address] 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1975 Requested By: SOLANGE MOODY Order Number: [id number] Reading : Jaspreet Steele Measurements Intervals Boyle Rate: 113 P: 61 VA: 112 QRS: 62 QRSD: 90 T: 215 QT: 325 QTc: 446 Interpretive Statements SINUS TACHYCARDIA WITH SHORT VA INTERVAL LEFT VENTRICULAR HYPERTROPHY AND ST-T CHANGE nondiagnostic inferior/lateral q-waves Procedure Note Jaspreet Steele MD - 11/09/[address] [place] [address] Test Date: 2024-11-08 Pat Name: ELHAM PATEL Department: 3 Room: EXAM 606 Gender: Female 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 SPEC DESCRIPTION BLOOD 11/09/19 6:13 PM CDT [facility] SPECIAL REQUESTS BLOOD-AERO BIC BOTTLE ONLY 11/08/2024 6:13 PM CDT [facility] CULTURE RESULT NO GROWTH 5 DAYS 11/13/2024 6:20 PM CDT [facility] BLOOD SPECIMEN OBTAINED FOR BLOOD CULTURE / Unknown 11/08/2024 12:03 PM CDT 11/08/2024 12:05 PM CDT us Solange Moody MD MICROBIOLOGY - GENERAL ORDERABLE S Final Result [facility] [address] [place] [address], [place] [phone] [id number] * LACTIC ACID W REFLEX (SEPSIS) (11/08/2024 11:50 AM CDT) LACTIC ACID VENOUS 1.7 0.4 - 2.0 MMOL/L 11/08/2024 12:17 PM CDT [facility] 11/08/2024 11:5 0 AM CDT us Solange Moody MD LABORATORY Final Result [facility] [address] [place] [address], [place] [phone] * TROPONIN, QUANT (11/08/2024 11:50 AM CDT) TROPONIN I HIGH SENSITIVITY 26 0 - 51 ng/L 11/08/2024 12:17 PM CDT [facility] 11/08/2024 11:5 0 AM CDT us Solange Moody MD LABORATORY Final Result Performing Organization Address City/[facility]/ZIP Co de Phone Number [facility] [address] [place] [address], * CK (CPK) (11/08/2024 11:50 AM CDT) CPK 96 26 - 192 U/L 11/08/2024 12:17 PM CDT [facility] 11/08/2024 11:5 0 AM CDT us Solange Moody MD LABORATORY Final Result Performing Organization Address City/[facility] Co de Phone Number [facility] [address] [place] [address], * (ABNORMAL) DRUG SCREEN RAPID (11/08/2024 11:21 AM CDT) Pathologist [facility] CANNABINOIDS SCREEN (U) NEGATIVE NEGATIVE 11/08/2024 11:41 AM CDT [facility] PHENCYCLIDINE PCP (U) NEGATIVE NEGATIVE 11/08/2024 11:41 AM CDT [facility] COCAINE METABOLITES (U) NEGATIVE NEGATIVE 11/08/2024 11:41 AM CDT [facility] METHAMPHETAMINE SCREEN (U) POSITIVE(A) NEGATIVE 11/08/2024 11:41 AM CDT [facility] OPIATE SCREEN (U) NEGATIVE NEGATIVE 025 11:41 AM CDT [facility] AMPHETAMINE SCREEN (U) POSITIVE(A) NEGATIVE 11/08/2024 11:41 AM CDT [facility] BENZODIAZEPINES SCREEN (U) POSITIVE(A) NEGATIVE 11/08/2024 11:41 AM CDT [facility] TRICYCLIC ANTIDEPRESSANT SCREEN (U) NEGATIVE NEGATIVE 11/08/2024 11:41 AM CDT [facility] METHADONE (U) NEGATIVE NEGATIVE 11/08/2024 11:41 AM CDT [facility] BARBITURATES SCREEN (U) NEGATIVE NEGATIVE 11/08/2024 11:41 AM CDT [facility] OXYCODONE SCREEN (U) POSITIVE(A) NEGATIVE 11/08/2024 11:41 AM CDT [facility] URINE TOX COMMENT THIS TEST METHODOLOGY IS DESIGNED AND OFFERED A RAPID TURNAROUND, QUALITATIVE SCREENING PROCEDURE TO AID IN THE IMMEDIATE MEDICAL ASSESSMENT OF PATIENTS SUSPECTED OF SUBSTANCE ABUSE. 11/08/2024 11:20 AM CDT [facility] Comment: CLINICAL CONSIDERATION AND PROFESSIONAL JUDGMENT MUST BE APPLIED TO ANY DRUG OF ABUSE TEST RESULT, BOTH POSITIVE AND NEGATIVE. CONFIRMATORY QUANTITATIVE RESULTS ARE AVAILABLE THROUGH OUR [facility]. URINE SPECIMEN / Unknown 11/08/2024 11:21 AM CDT Solange Moody MD URINE ORDERABLES Final Result [facility] [address] [place] [address], * (ABNORMAL) URINALYSIS (11/08/2024 11:21 AM CDT) COLOR (U) YELLOW 11/08/2024 11:42 AM CDT [facility] TRANSPARENCY CLEAR 11/08/2024 11:42 AM CDT [facility] SPECIFIC GRAVITY (U) 1.025 1.000 - 1.025 11/08/2024 11:42 AM CDT [facility] U PH 8.5(H) 5.0 - 8.0 11/08/2024 11:42 AM CDT [facility] LEUKOCYTES (U) 2+(A) NEGATIVE 11/08/2024 11:42 AM CDT [facility] NITRITES NEGATIVE NEGATIVE 11/08/2024 11:42 AM CDT [facility] PROTEIN RANDOM (U) 3+(A) NEGATIVE 11/08/2024 11:42 AM CDT [facility] GLUCOSE (U) NEGATIVE NEGATIVE 11/08/2024 11:42 AM CDT [facility] KETONES MG/DL (U) NEGATIVE NEGATIVE 11/08/2024 11:42 AM CDT [facility] UROBILINOGEN 0.2 <1.0 EU/DL 11/08/2024 11:42 AM CDT [facility] BILIRUBIN (U) NEGATIVE NEGATIVE 11/08/2024 11:42 AM CDT [facility] BLOOD (U) 2+(A) NEGATIVE 11/08/2024 11:42 AM CDT [facility] WBC/HPF 10-20(A) 0 - 5 /HPF 11/08/2024 11:42 AM CDT [facility] RBC/HPF 10-20(A) 0 - 5 /HPF 11/08/2024 11:42 AM CDT [facility] EPI/LPF RARE /LPF 11/08/2024 11:42 AM CDT [facility] BACTERIA (U) 3+ /HPF 11/08/2024 11:42 AM CDT [facility] URINE SPECIMEN OBTAINED BY CLEAN CATCH PROCEDURE / Unknown 11/08/2024 11:21 AM CDT us Solange Moody MD URINE ORDERABLES Final Result [facility] [address] [place] [address], * CULTURE URINE (11/08/2024 11:21 AM CDT) SPEC DESCRIPTION URINE CLEAN CATCH 11/08/2024 11:20 AM CDT [facility] SPECIAL REQUESTS NO SPECIAL REQUEST 11/08/2024 11:20 AM CDT [facility] CULTURE RESULT >25,000 TO 50,000 CFU/mL PSEUDOMONAS AERUGINOSA 2024 9:58 AM CDT [facility] URINE SPECIMEN OBTAINED BY CLEAN [...] MICROBIOLOGY - GENERAL ORDERABLE S Final Result [facility] [address] [place] [address], [place] [phone] [facility] [address] [place] [address], * (ABNORMAL) COMPREHENSIVE METABOLIC PANEL (11/08/2024 10:53 AM CDT) SODIUM S/P/B 135(L) 136 - 145 MMOL/L 11/08/2024 11:35 AM CDT [facility] POTASSIUM S/P/B 4.3 3.5 - 5.1 MMOL/L 11/08/2024 11:35 AM CDT [facility] CHLORIDE S/P/B 99 98 - 107 MMOL/L 11/08/2024 11:35 AM CDT [facility] CO2 20.9(L) 21.0 - 32.0 MMOL/L 11/08/2024 11:35 AM CDT [facility] GLUCOSE 94 70 - 99 MG/DL 11/08/2024 11:35 AM CDT [facility] Comment: FASTING GLUCOSE 100 TO 125 MG/DL IS CONSISTENT WITH IMPAIRED FASTING GLUCOSE. FASTING GLUCOSE >125 MG/DL IS CONSISTENT WITH DIABETES. RANDOM GLUCOSE >200 MG/DL WITH HYPERGLYCEMIC SYMPTOMS IS CONSISTENT WITH DIABETES. PER ADA GUIDELINES BUN 39(H) 6 - 24 MG/DL 11/08/2024 11:35 AM [facility] CREATININE S/P/B 3.52(H) 0.55 - 1.02 MG/DL 11/08/2024 11:35 AM [facility] CALCIUM S/P/B 8.0(L) 8.4 - 10.5 MG/DL 11/08/2024 11:35 AM [facility] BILIRUBIN TOTAL S/P/B 0.4 0.2 - 1.0 MG/DL 11/08/2024 11:35 AM [facility] Comment: THIS ASSAY IS NOT RECOMMENDED FOR PATIENTS UNDERGOING TREATMENT WITH ELTROMBOPAG DUE TO THE POTENTIAL FOR FALSELY ELEVATED RESULTS. ALKALINE PHOSPHATASE S/P/B 88 39 - 100 U/L 11/08/2024 11:35 AM [facility] AST 12(L) 15 - 37 U/L 11/08/2024 11:35 AM [facility] ALT 15 14 - 59 U/L 11/08/2024 11:35 AM [facility] TOTAL PROTEIN S/P/B 5.5(L) 6.4 - 8.2 G/DL 11/08/2024 11:35 AM [facility] ALBUMIN S/P/B 2.0(L) 3.4 - 5.0 G/DL 11/08/2024 11:35 AM [facility] ANION GAP 15.1(H) 5.0 - 15.0 MMOL/L 11/08/2024 11:35 AM [facility] OSMOLALITY (CALC) 289 MOSM/KG 025 11:35 AM [facility] Comment:REFERENCE RANGE NOT ESTABLISHED GFR ESTIMATE 15(L) >89 ML/MIN/1. 73 M2 11/08/2024 11:35 AM [facility] GFR NOTES GFR REFERENCE S: 11/08/2024 11:35 AM [facility] Comment: THE ESTIMATED GFR [...] us Solange Moody MD LABORATORY Final Result [facility] [address] [place] [address], * HCG QUANT (SERUM)-CHORIONIC GONADOTROPIN (11/08/2024 10:53 AM CDT) HCG QUANTITATIVE 1 0.0 - 6.0 MIU/ML 11/08/2024 11:35 AM CDT [facility] Comment:NON- FEMALE 0-6 11/08/2024 10:5 3 AM CDT us Solange Moody MD LABORATORY Final Result Performing Organization Address City/[facility]/ZIP Co de Phone Number [facility] [address] [place] [address], [place] [phone] * (ABNORMAL) CBC W/DIFF AUTOMATED (11/08/2024 10:53 AM CDT) WBC 20.30(H) 4.00 - 10.80 x10'3/uL 11/08/2024 11:05 AM CDT [facility] RBC 3.14(L) 4.10 - 5.40 x10'6/uL 11/08/2024 11:05 AM CDT [facility] HGB 9.8(L) 12.0 - 16.0 G/DL 11/08/2024 11:05 AM CDT [facility] HCT 29.3(L) 36.0 - 47.0 % 11/08/2024 11:05 AM CDT [facility] MCV 93.3 78.0 - 100.0 FL 11/08/2024 11:05 AM CDT [facility] MCH 31.2(H) 27.0 - 31.0 PG 11/08/2024 11:05 AM T [facility] MCHC 33.4 33.0 - 36.0 G/DL 11/08/2024 11:05 AM T [facility] RDW 14.4 11.5 - 14.5 % 11/08/2024 11:05 AM T [facility] PLT 293 150 - 350 x10'3/uL 11/08/2024 11:05 AM T [facility] MPV 11.3(H) 7.4 - 10.4 FL 11/08/2024 11:05 AM T [facility] CBC COMMENT NORMAL REFERENCE RANGE NOT ESTABLISHED FOR THE PROPORTIONAL LEUKOCYTE DIFFERENTIAL. 11/08/2024 11:05 AM T [facility] NEUTROPHILS % 86.6 % 11/08/2024 11:05 AM T [facility] LYMPHOCYTES % 4.8 % 11/08/2024 11:05 AM [facility] MONOCYTES % 7.5 % 11/08/2024 11:05 AM [facility] EOSINOPHILS % 0.1 % 11/08/2024 11:05 AM T [facility] BASOPHILS % 0.2 % 11/08/2024 11:05 AM T [facility] IMMATURE GRANS % 0.8 % 11/09/19 11:05 AM T [facility] NRBC % 0.0 % 11/08/2024 11:05 AM [facility] ABS. NEUTROPHILS 17.56(H) 1.60 - 8.30 x10'3/uL 11/08/2024 11:05 AM T [facility] ABS. LYMPHOCYTES 0.98 0.80 - 4.70 x10'3/uL 11/08/2024 11:05 AM CDT [facility] ABS. MONOCYTES 1.53(H) 0.00 - 1.50 x10'3/uL 11/08/2024 11:05 AM CDT [facility] ABS. EOSINOPHILS 0.02 0.00 - 0.40 x10'3/uL 11/08/2024 11:05 AM CDT [facility] ABS. BASOPHILS 0.04 0.00 - 0.20 x10'3/uL 11/08/2024 11:05 AM CDT [facility] ABS. IMMATURE GRANULOCYTES 0.17(H) 0.00 - 0.03 x10'3/uL 11/08/2024 11:05 AM CDT [facility] ABS. NUCLEATED RBC'S 0.00 0.00 - 0.01 x10'3/uL 11/08/2024 11:05 AM CDT [facility] 11/08/2024 10:5 3 AM CDT us Solange Moody MD [place] [address], * (ABNORMAL) MAGNESIUM (11/08/2024 10:53 AM CDT) MAGNESIUM 1.2(L) 1.8 - 2.4 MG/DL 11/08/2024 11:42 AM CDT [facility] 11/08/2024 10:5 3 AM CDT us Solange Moody MD LABORATORY Final Result [facility] [address] [place] [address], * LIPASE (11/08/2024 10:53 AM CDT) LIPASE 17 16 - 77 UNITS/L 11/08/2024 11:42 AM CDT [facility] 11/08/2024 10:5 3 AM CDT us Solange Moody MD LABORATORY Final Result [facility] [place] [address], * ETHANOL (11/08/2024 10:53 AM CDT) ALCOHOL S/P/B <0.003 <0.003 G/DL 11/08/2024 11:35 AM CDT [facility] 11/08/2024 10:5 3 AM CDT us Solange Moody MD LABORATORY Final Result Performing Organization Address [facility] Co de Phone Number [facility] [address] [place] [id number], from Last 3 Months Additional Health Concerns Infection Onset Date Last Indicated C. difficile 11/08/2024 11/08/[address] [place] [address] Advance Directives * Full Code (Latest Code Status on File) Date Activated Date Inactivated Comments 12/05/2024 1:34 PM Care Teams [employer] Farm[employer] Relationship Specialty Start Date End Date Milan Heredia DO [address] [place] [address] PCP - General FAMILY PRACTICE 12/01/24
--- OUTSIDE RECORDS SUMMARY | 2024-12-13 14:43 | XMS_ITS | Clinical Summary ---
Author Organization [facility] Address [address] [place] [address] Phone Care Team Providers Care Ticketing Agent Name Role Phone Joellen Shepherd APRN, BROWNFIELD REDEVELOPMENT SITE MANAGER Primary Care Provi jameel Allergies Active Allergy [...] - 1st line. 10 Tablet 5 Active lisinopril (PRINIVIL, ZESTRIL) 5 MG Tablet Take 1 Tablet by mouth daily. 30 Tablet 5 Active thiamine (VITAMIN B1) 100 MG Tablet Take 1 Tablet by mouth daily for 30 days. 30 Tablet 5 12/13/19 25 vancomycin (VANCOCIN) 125 MG CapsuleIndicati ons:Clostridioi bienvenido [...] Type Department Care Team Description 12/06/2024 Telephone [facility] [address] [place] [address] Neo Mcfadden, COTTON OPENER, JAMAL 12/05/2024 Home Care Visit [address] [address] Bettye Whitaker RN SN Ruben CROWELL TRANSFER W/DC 11/21/2024 Home Care Visit [address] [address] Elham Hitchcock OT TELEPHONE ENCOUNTER 11/21/2024 Home Care Visit [address] [address] Bettye Whitaker, RN TELEPHONE ENCOUNTER 11/16/2024 1:30 PM CDT Home Care Visit [address] [address] Keri Lopez, REHAB TECHNICIAN REHAB TECHNICIAN - HOME VISIT 11/16/2024 Home Care Visit [address] [address] Meg Cassidy, PT CASE COMMUNICATION 11/15/2024 2:30 PM CDT Home Care Visit [address] [address] Bettye Whitaker, RN SN Ruben CROWELL START OF CARE 11/15/2024 Plan of Care Documentation [address] [address] 11/14/2024 7:08 AM CDT - 11/14/2024 11:59 AM CDT Emergency [facility] Emergency [address] [place] [address] Andrei Yao DO Hypertension Discharge Disposition: Discharged to home or Selfcare 11/14/2024 Travel 11/08/2024 8:15 PM CDT - 11/12/2024 12:26 PM CDT Hospital Encounter [facility] Med Surg [address] [place] [address] Sanjay Reed MD Sepsis (HCC) Discharge Disposition: [...] day. last drink 5 weeks ago [facility] [employer] Answer Date Recorded In the past 12 months has e [employer], gas, oil, or water [employer] threatened to shut off services in your home? Patient declined 11/08/2024 Social Connection and Isolation Panel [NHANES] A nswer Date Recorded In a typical week, how many times do you talk on the phone with family, friends, or neighbors? Patient declined 11/08/2024 How often do you get togethe r with friends or relatives? Patient declined 11/08/2024 How often do you attend restoration or jain serv ices? Patient declined 11/08/2024 Do you belong to any clubs o r organizations such as restoration groups, unions, fraternal or athletic groups, or [...] medical care, and heating? Patient declined 11/08/2024 [facility] Occupat ional Health - Occupational Stress [...] any time in the past 12 m [facility], were you homeless or living in a assisted (including now)? No 11/08/2024 Sexually Active Control [...] (Adult) (1 - 1-dose 75+ series) 11/09/2050 Human Papillomavirus (HPV) Immunization Aged Out No longer eligible b ased on patient's age to complete this topic Meningococcal Immunization (ACWY) Aged Out No longer [...] (11/14/2024 9:53 AM CDT) Pathologist [facility] SPECIFIC GRAVITY 1.010 1.003 - 1.030 11/14/2024 10:51 AM CDT [facility] URINE PH 7.0 5.0 - 9.0 11/14/2024 10:51 AM CDT [facility] WBC ESTERASE 25 /ul(A) Negative 11/14/2024 10:51 AM CDT [facility] NITRITE Negative Negative 11/14/2024 10:51 AM CDT [facility] PROTEIN, RANDOM URINE 100 mg/dL(A) Negative 11/14/2024 10:51 AM CDT [facility] URINE GLUCOSE, QUAL Negative Negative 11/14/2024 10:51 AM CDT [facility] URINE KETONES Negative Negative 11/14/2024 10:51 AM CDT [facility] UROBILINOGEN Normal Normal mg/dL 11/14/2024 10:51 AM CDT [facility] URINE BLOOD 50 /uL(A) Negative billy/ul 11/14/2024 10:51 AM CDT [facility] URINALYSIS COLOR Yellow 11/15/19 25 10:51 AM CDT [facility] URINALYSIS CLARITY Clear 11/14/2024 10:51 AM CDT [facility] WBC (Urine) 0-5 Negative, 0-5 /hpf 11/14/2024 10:51 AM CDT [facility] URINE RBC'S 11-20(A) Negative, 0-2 /hpf 11/14/2024 10:51 AM CDT [facility] EPITHELIAL CELLS Small amount /lpf 2024 10:51 AM CDT [facility] BACTERIA, URINE Few(A) Negative /hpf 11/14/2024 10:51 AM CDT [facility] Urine (Indwelling Catheter) Non-Phlebotomy Collection / Unknown 11/14/2024 9:53 AM CDT 11/14/2024 10:27 AM CDT us Andrei Yao DO URINE ORDERABLES Final Result Performing Organization Address City/[facility]/ZIP Co de Phone Number [facility] [address] [place] [address] * EKG 12 LEAD (11/14/2024 8:07 AM CDT) Ventricular Rate 99 BPM EXTERNAL EKG Atrial Rate 99 BPM EXTERNAL EKG P-R Interval 124 ms EXTERNAL EKG QRS Duration 92 ms EXTERNAL EKG Q-T Duration 376 ms EXTERNAL EKG QTC CALCULATION 482 ms EXTERNAL EKG P Guild 68 degrees EXTERNAL EKG R Guild 72 degrees EXTERNAL EKG T Guild 72 degrees EXTERNAL EKG 11/14/2024 8:07 AM CDT Impressions EXTERNAL EKG - 11/15/2024 4:45 PM CDT Normal sinus rhythm Possible Left atrial enlargement QTcB >= 480 msec Abnormal ECG No previous ECGs available Confirmed by MADELINE SANDOVAL ([id number]) on 11/15/2024 4:45:02 PM Narrative Procedure Note Madeline Sandoval MD - 11/15/2024 IMPRESSION: Normal sinus rhythm Possible Left atrial enlargement QTcB >= 480 msec Abnormal ECG No previous ECGs available Confirmed by MADELINE SANDOVAL ([id number]) on 11/15/2024 4:45:02 PM us Andrei Yao DO IMG ECG ORDERABLES Belia l Result Performing Organization Address City/[facility]/ZIP Co de Phone Number EXTERNAL EKG * TROPONIN I, HIGH SENSITIVITY (HSTRP) (11/14/2024 7:53 AM CDT) TROPONIN I, HIGH SENSITIVITY- ESPOSITO 9 <=14 ng/L 11/14/2024 9:12 AM CDT [facility] Comment: High-sensitivity troponin I results are reported in ng/L making the result appear to be 1,000 times higher than the contemporary troponin I value which is reported in ng/ml. Results from [place]. Blood Venipuncture / Unknown 11/14/2024 7:53 AM CDT 11/14/2024 8:40 AM CDT us Andrei Yao DO CHEMISTRY ORDERABLES Fi nal Result [facility] [address] [place] [address] * (ABNORMAL) Manual Differential (11/14/2024 7:53 AM CDT) BANDS % 2.0 % 11/14/2024 9:22 AM CDT [facility] NEUTROPHILS % 73.0 47.0 - 73.0 % 11/14/2024 9:22 AM CDT [facility] LYMPHOCYTES % 19.0 18.0 - 42.0 % 11/14/2024 9:22 AM CDT [facility] MONOCYTES % 3.0(L) 4.0 - 12.0 % 11/14/2024 9:22 AM CDT [facility] EOSINOPHILS % 3.0 0.0 - 5.0 % 11/14/2024 9:22 AM CDT [facility] NEUTROPHILS ABSOLUTE 7.62 1.60 - 7.70 10(3)/mcL 11/14/2024 9:22 AM CDT [facility] LYMPHOCYTES ABSOLUTE 1.93 1.30 - 3.20 10(3)/mcL 11/14/2024 9:22 AM CDT [facility] MONOCYTES ABSOLUTE 0.30 0.20 - 1.00 10(3)/mcL 11/14/2024 9:22 AM CDT [facility] EOSINOPHILS ABSOLUTE 0.30 0.00 - 0.40 10(3)/mcL 11/14/2024 9:22 AM CDT [facility] REACTIVE LYMPHOCYTES 1 11/14/2024 9:22 AM CDT [facility] WBC MORPH STATUS Normal 11/15/19 9:22 AM CDT [facility] RBC MORPH STATUS Normal 11/15/19 9:22 AM CDT [facility] PLATELET STATUS Normal 9:22 AM CDT [facility] Blood Venipuncture / Unknown 11/14/2024 7:53 AM CDT 11/14/2024 8:40 AM CDT us Andrei Yao DO HEMATOLOGY ORDERABLES F inal Result [facility] [address] [place] [address] * (ABNORMAL) CBC with Auto Differential (11/14/2024 7:53 AM CDT) Only the most recent of6 resultswithin the time period is included. WBC 10.16 4.00 - 12.00 10(3)/mcL 11/14/2024 9:22 AM CDT [facility] RBC 3.64(L) 3.80 - 5.30 10(6)/mcL 11/14/2024 9:22 AM CDT [facility] HEMOGLOBIN (HGB) 10.8(L) 12.0 - 15.8 g/dL 11/14/2024 9:22 AM CDT [facility] HEMATOCRIT (HCT) 32.9(L) 36.0 - 47.0 % 11/14/2024 9:22 AM CDT [facility] MCV 90.4 82.0 - 96.0 fL 11/14/2024 9:22 AM CDT [facility] MCH 29.7 26.0 - 34.0 pg 11/14/2024 9:22 AM CDT [facility] MCHC 32.8 31.0 - 36.0 g/dL 11/14/2024 9:22 AM CDT [facility] PLATELET COUNT 578(H) 140 - 440 10(3)/mcL 11/14/2024 9:22 AM CDT [facility] RDW 13.3 11.8 - 15.5 % 11/14/2024 9:22 AM CDT [facility] MPV 10.6 9.7 - 12.4 fL 11/14/2024 9:22 AM CDT [facility] NRBC PER 100 WBC 0 11/14/2024 9:22 AM CDT [facility] RESULTS ARE CONSISTENT WITH PERIPHERAL SMEAR REVIEW Yes 11/14/2024 9:22 AM CDT [facility] RBC MORPHOLOGY CONSISTENT WITH INDICES Yes 11/14/2024 9:22 AM CDT [facility] Blood Venipuncture / Unknown 11/14/2024 7:53 AM CDT 11/14/2024 8:40 AM CDT us Andrei Yao DO HEMATOLOGY ORDERABLES F inal Result [facility] [address] [place] [address] * CMP (Comprehensive Metabolic Panel) (11/14/2024 7:53 AM CDT) Only the most recent of2 resultswithin the time period is included. SODIUM 141 136 - 145 mmol/L 11/14/2024 9:07 AM CDT [facility] POTASSIUM 3.5 3.5 - 5.1 mmol/L 11/14/2024 9:07 AM CDT [facility] CHLORIDE 106 98 - 107 mmol/L 11/14/2024 9:07 AM CDT [facility] CO2, VENOUS 25 22 - 30 mmol/L 11/14/2024 9:07 AM CDT [facility] ANION GAP 13.5 <18.0 mmol/L 11/14/2024 9:07 AM [facility] GLUCOSE 97 70 - 99 mg/dL 11/14/2024 9:07 AM [facility] BUN 17 5 - 18 mg/dL 11/14/2024 9:07 AM [facility] CREATININE, BLOOD 0.85 0.60 - 1.00 mg/dL 11/14/2024 9:07 AM [facility] BUN/CREATININE RATIO 20 12 - 20 ratio 11/14/2024 9:07 AM [facility] TOTAL PROTEIN 7.5 6.0 - 8.0 g/dL 11/14/2024 9:07 AM [facility] ALBUMIN 3.7 3.5 - 5.0 g/dL 11/14/2024 9:07 AM [facility] A/G RATIO 1.0 1.0 - 2.2 11/14/2024 9:07 AM [facility] CALCIUM 9.0 8.7 - 10.5 mg/dL 11/14/2024 9:07 AM [facility] T BILI 0.2 0.2 - 1.2 mg/dL 11/14/2024 9:07 AM [facility] SGOT (AST) 23 <43 U/L 11/14/2024 9:07 AM [facility] SGPT (ALT) 18 <56 U/L 11/14/2024 9:07 AM [facility] ALKALINE PHOSPHATASE 83 40 - 150 U/L 11/14/2024 9:07 AM [facility] GFR, ESTIMATED >60 >=60 11/14/2024 9:07 AM [facility] Comment: Creatinine Clearance is the preferred criteria for selecting drug dose adjustments in renally impaired patients. The GFR is provided as additional pertinent clinical information. GFR is reported in mL/min/1.73 sq m. Calculation based on the Chronic Kidney Disease Epidemiology Collaboration (CKD- EPI) equation refit without adjustment for race. GFR, EST. >60 >=60 025 9:07 AM CDT [facility] GFR, EST. NONAFRICAN >60 >=60 11/14/2024 9:07 AM CDT [facility] Blood Venipuncture / Unknown 11/14/2024 7:53 AM CDT 11/14/2024 8:40 AM CDT us Andrei Houston Maximilian DO CHEMISTRY ORDERABLES Fi nal Result Performing Organization Address [facility] Co de Phone Number [facility] [address] [place] [address] * EKG SCAN (11/14/2024 12:00 AM CDT) 11/14/2024 us Provider Scan IMG ECG ORDERABLES Final Result Performing Organization Address City/[facility] Co de Phone Number RESULTING AGENCY * (ABNORMAL) BMP with Ca, Total (11/12/2024 4:23 AM CDT) Only the most recent of3 resultswithin the time period is included. SODIUM 141 136 - 145 mmol/L 11/12/2024 5:58 AM CDT [facility] POTASSIUM 3.6 3.5 - 5.1 mmol/L 11/12/2024 5:58 AM CDT [facility] CHLORIDE 109(H) 98 - 107 mmol/L 11/12/2024 5:58 AM CDT [facility] CO2, VENOUS 23 22 - 30 mmol/L 11/12/2024 5:58 AM CDT [facility] ANION GAP 12.6 <18.0 mmol/L 11/12/2024 5:58 AM CDT [facility] GLUCOSE 77 70 - 99 mg/dL 11/12/2024 5:58 AM CDT [facility] BUN 12 5 - 18 mg/dL 11/12/2024 5:58 AM CDT [facility] CREATININE, BLOOD 0.95 0.60 - 1.00 mg/dL 11/12/2024 5:58 AM CDT [facility] BUN/CREATININE RATIO 13 12 - 20 ratio 11/12/2024 5:58 AM CDT [facility] CALCIUM 8.4(L) 8.7 - 10.5 mg/dL 11/12/2024 5:58 AM CDT [facility] GFR, ESTIMATED >60 >=60 11/12/2024 5:58 AM CDT [facility] Comment: Creatinine Clearance is the preferred criteria for selecting drug dose adjustments in renally impaired patients. The GFR is provided as additional pertinent clinical information. GFR is reported in mL/min/1.73 sq m. Calculation based on the Chronic Kidney Disease Epidemiology Collaboration (CKD- EPI) equation refit without adjustment for race. GFR, EST. >60 >=60 025 5:58 AM CDT [facility] GFR, EST. NONAFRICAN >60 >=60 11/12/2024 5:58 AM CDT [facility] Blood Venipuncture / Unknown 11/12/2024 4:23 AM CDT 11/12/2024 5:34 AM CDT Amy Villeda COTTON OPENER, BROWNFIELD REDEVELOPMENT SITE MANAGER CHEMISTRY ORDERABLES Final Result [facility] [address] [place] [address] * Culture, Blood (11/11/2024 5:38 PM CDT) Only the most recent of2 resultswithin the time period is included. CULTURE RESULTS NO GROWTH WITHIN 5 DAYS, FINAL RESULT 11/16/2024 6:01 PM CDT [facility] Culture (Peripheral Vein) Venipuncture / Unknown 11/11/2024 5:38 PM CDT 11/11/2024 5:40 PM CDT us Sanjay Reed MD MICROBIOLOGY - GENERAL O RDERABLES Final Result [facility] [address] [place] [address], [place] * RHYTHM STRIP (2024 12:00 AM [...] mm. No pericholecystic fluid. No positive sonographic [place] sign reported. BILIARY: There is no intrahepatic or extrahepatic biliary ductal dilatation. Common bile duct measures 0.2 cm in diameter. OTHER: No other significant findings. THIS IS AN ELECTRONICALLY VERIFIED FINAL REPORT 11/09/2024 1:54 PM - Electronically signed by Sparkle Leblanc M.D. FT: FT Report ID: [id number] Reading Location: [id number] Procedure Note Sparkle Zelaya MD - 11/09/2024 [...] mm. No pericholecystic fluid. No positive sonographic [place] sign reported. BILIARY: There is no intrahepatic or extrahepatic biliary ductal dilatation. Common bile duct measures 0.2 cm in diameter. OTHER: No other significant findings. THIS IS AN ELECTRONICALLY VERIFIED FINAL REPORT 11/09/2024 1:54 PM - Electronically signed by Sparkle Leblanc M.D. FT: FT Report ID: [id number] Reading Location: [id number] IMPRESSION: Biliary sludge and borderline gallbladder wall thickening. No pericholecystic fluid or positive sonographic Fernando's sign. Findings are equivocal for acute cholecystitis. If there is persistent clinical concern, HIDA scan may be performed. us Mike Parra MD [facility] US ORDERABLES Fin al Result * (ABNORMAL) Renal Function Panel (11/09/2024 4:23 AM CDT) SODIUM 138 136 - 145 mmol/L 11/09/2024 7:21 AM CDT [facility] POTASSIUM 3.3(L) 3.5 - 5.1 mmol/L 11/09/2024 7:21 AM [facility] CHLORIDE 107 98 - 107 mmol/L 11/09/2024 7:21 AM [facility] CO2, VENOUS 20(L) 22 - 30 mmol/L 11/09/2024 7:21 AM [facility] ANION GAP 14.3 <18.0 mmol/L 11/09/2024 7:21 AM [facility] GLUCOSE 85 70 - 99 mg/dL 11/09/2024 7:21 AM [facility] BUN 37(H) 5 - 18 mg/dL 11/09/2024 7:21 AM [facility] CREATININE, BLOOD 2.43(H) 0.60 - 1.00 mg/dL 11/09/2024 7:21 AM [facility] BUN/CREATININE RATIO 15 12 - 20 ratio 11/09/2024 7:21 AM [facility] ALBUMIN 3.0(L) 3.5 - 5.0 g/dL 11/09/2024 7:21 AM [facility] CALCIUM 8.3(L) 8.7 - 10.5 mg/dL 11/09/2024 7:21 AM [facility] PHOSPHORUS 4.4 2.5 - 4.5 mg/dL 11/09/2024 7:21 AM [facility] GFR, ESTIMATED 24(L) >=60 11/09/2024 7:21 AM [facility] Comment: Creatinine Clearance is the preferred criteria for selecting drug dose adjustments in renally impaired patients. The GFR is provided as additional pertinent clinical information. GFR is reported in mL/min/1.73 sq m. Calculation based on the Chronic Kidney Disease Epidemiology Collaboration (CKD- EPI) equation refit without adjustment for race. GFR, EST. 26(L) >=60 025 7:21 AM [facility] GFR, EST. NONAFRICAN 21(L) >=60 11/09/2024 7:21 AM CDT [facility] Blood Venipuncture / Unknown 11/09/2024 4:23 AM CDT 11/09/2024 5:57 AM CDT us Gia Walton APRN, BROWNFIELD REDEVELOPMENT SITE MANAGER CHEMISTRY ORDERABLES Belia l Result Performing Organization Address City/[facility] Co de Phone Number [facility] [address] [place] [address] * Magnesium (Mg) (11/09/2024 4:23 AM CDT) Only the most recent of2 resultswithin the time period is included. MAGNESIUM 2.6 1.6 - 2.6 mg/dL 11/09/2024 7:21 AM CDT [facility] Blood Venipuncture / Unknown 11/09/2024 4:23 AM CDT 11/09/2024 5:57 AM CDT Gia Walton APRN, BROWNFIELD REDEVELOPMENT SITE MANAGER CHEMISTRY ORDERABLES Belia l Result Performing Organization Address [facility] Co de Phone Number [facility] [address] [place] [address] * CT RENAL STONE STUDY (ABDOMEN AND [...] Liv Lauren M.D. SN: SN Report ID: [id number] Reading Location: [id number] Procedure Note Liv Lauren MD - 11/09/2024 [...] by Liv Lauren M.D. SN: Report ID: [id number] Reading Location: [place] [id number] IMPRESSION: No acute intra-abdominal or pelvic abnormality seen. Daniel catheter and rectal tube in place. Tiny fat containing periumbilical hernia. Gia Walton APRN, CNP IMG CT ORDERABLES [...] ) Negative, Invalid 11/09/2024 1:37 AM CDT [facility] Comment:Please see Reflex C. diff Quik Chek Complete order results Other STOOL SPECIMEN / Unknown Non-Phlebotomy Collection / Unknown 11/08/2024 11:25 PM CDT 11/08/2024 11:49 PM CDT us Gia Walton APRN, CNP MICROBIOLOGY - GENERAL OR DERABLES Final Result Performing Organization Address [facility] de Phone Number [facility] [address] [place] [address] * REFLEX C DIFF QUIK CHEK COMPLETE (11/08/2024 11:25 PM CDT) TOXIN A/B Negative Negative, INVALID, Not Applicable 11/09/2024 1:37 AM CDT [facility] Comment:These results are mullen ggestive of [...] OR DERABLES Final Result Performing Organization Address City/[facility] Co de Phone Number [facility] [address] [place] [address] * Culture, Stool (11/08/2024 11:25 PM CDT) CULTURE RESULTS NEGATIVE FOR CAMPYLOBACTER ANTIGEN 2024 3:41 PM CDT [facility] CULTURE RESULTS SHIGA TOXIN 1 AND SHIGA TOXIN 2 NOT DETECTED 2024 3:41 PM CDT [facility] CULTURE RESULTS Heavy Mixed genesis 2024 3:41 PM CDT [facility] Culture STOOL SPECIMEN / Unknown Non-Phlebotomy Collection / Unknown 11/08/2024 11:25 PM CDT 11/08/2024 11:49 PM CDT Narrative [facility] - 2024 3:41 PM CDT Unless stated above as an isolate, no Salmonella, Shigella, E Coli O157, Aeromonas, or Pleisiomonas species isolated Gia Walton APRN, CNP MICROBIOLOGY - GENERAL OR DERABLES Final Result Performing Organization Address [facility] Co de Phone Number [facility] [address] [place] [address], [place] * Ur Sodium (Na) Random (11/08/2024 11:24 PM CDT) SODIUM, RANDOM URINE 42 mmol/L 11/09/2024 2:45 PM CDT [facility] Comment:No reference range h as been established. Consider Clinical Correlation. Urine Non-Phlebotomy Collection / Unknown 11/08/2024 11:24 PM CDT 11/08/2024 11:48 PM CDT us Gia Walton APRN, CNP URINE ORDERABLES Final Re sult Performing Organization Address City/[facility] Co de Phone Number [facility] [address] [place] [address], [place] * Ur Potassium (K) Random (11/08/2024 11:24 PM CDT) UR POTASSIUM, RANDOM 21 mmol/L 11/09/2024 2:45 PM CDT [facility] Comment:No reference range h as been established. Consider Clinical Correlation. Urine Non-Phlebotomy Collection / Unknown 11/08/2024 11:24 PM CDT 11/08/2024 11:48 PM CDT Gia Walton APRN, JAMAL URINE ORDERABLES Final Re sult Performing Organization Address City/[facility]/ZIP Co de Phone Number [facility] [address] [place] [address], [place] * Ur Osmolality (11/08/2024 11:24 PM CDT) OSMOLALITY, URINE 271 50 - 1,400 mOsm/kg 11/09/2024 3:27 PM CDT [facility] Urine Non-Phlebotomy Collection / Unknown 11/08/2024 11:24 PM CDT 11/08/2024 11:48 PM CDT Gia Walton APRN, CNP URINE ORDERABLES Final Re sult Performing Organization Address [facility] Co de Phone Number [facility] [address] [place] [address], [place] * Ur Chloride (Cl) Random (11/08/2024 11:24 PM CDT) CHLORIDE, RANDOM URINE 29 mmol/L 11/09/2024 2:45 PM CDT [facility] Comment:No reference range h as been established. Consider Clinical Correlation. Urine Non-Phlebotomy Collection / Unknown 11/08/2024 11:24 PM CDT 11/08/2024 11:48 PM CDT Gia Walton APRN, CNP URINE ORDERABLES Final Re sult Performing Organization Address [facility] Co de Phone Number [facility] [address] [place] [address], [place] * (ABNORMAL) IRON,TRANSFERN,CALC.TIBC,%SAT (11/08/2024 10:05 PM CDT) IRON 9(L) 25 - 156 mcg/dL 11/08/2024 11:59 PM CDT [facility] TRANSFERRIN 125(L) 180 - 382 mg/dL 11/08/2024 11:59 PM CDT [facility] TIBC, CALCULATED 156(L) 265 - 497 mcg/dL 11/08/2024 11:59 PM CDT [facility] % SATURATION * 6(L) 15 - 62 % 11/08/2024 11:59 PM CDT [facility] Blood Venipuncture / Unknown 11/08/2024 10:05 PM CDT 11/08/2024 10:14 PM CDT [facility] Walton APRN, BROWNFIELD REDEVELOPMENT SITE MANAGER CHEMISTRY ORDERABLES Belia l Result [facility] [address] [place] [address] * Vitamin B12 (11/08/2024 10:05 PM CDT) VITAMIN B12 238 213 - 816 pg/mL 11/09/2024 12:29 AM CDT [facility] Blood Venipuncture / Unknown 11/08/2024 10:05 PM CDT 11/08/2024 10:14 PM CDT us Gia Walton APRN, BROWNFIELD REDEVELOPMENT SITE MANAGER CHEMISTRY ORDERABLES Belia l Result Performing Organization Address [facility]/ZIP Co de Phone Number [facility] [address] [place] [address] * Osmolality Serum (11/08/2024 10:05 PM CDT) OSMOLALITY 295 275 - 295 mOsm/kg 11/09/2024 2:51 PM CDT [facility] Blood Venipuncture / Unknown 11/08/2024 10:05 PM CDT 11/08/2024 10:14 PM CDT Narrative [facility] - 11/09/2024 2:51 PM CDT Result is an averaged value Gia Walton APRN, BROWNFIELD REDEVELOPMENT SITE MANAGER CHEMISTRY ORDERABLES Eblia l Result [facility] [address] [facility] [place] [address], [place] * Lactic Acid (Lactate) (11/08/2024 10:05 PM CDT) LACTIC ACID 0.9 0.7 - 2.0 mmol/L 11/08/2024 11:18 PM CDT [facility] Blood Venipuncture / Unknown 11/08/2024 10:05 PM CDT 11/08/2024 10:13 PM CDT Gia Walton APRN, CNP CHEMISTRY ORDERABLES Belia l Result Performing Organization Address City/[facility]/ZIP Co de Phone Number [facility] [address] [place] [address] * FOLIC ACID (FOLATE) (11/08/2024 10:05 PM CDT) FOLATE 11.1 7.0 - 31.4 ng/mL 11/09/2024 12:29 AM CDT [facility] Blood Venipuncture / Unknown 11/08/2024 10:05 PM CDT 11/08/2024 10:14 PM CDT us Gia Walton APRN, CNP CHEMISTRY ORDERABLES Belia l Result Performing Organization Address City/[facility]/ZIP Co de Phone Number [facility] [address] [place] [address] * (ABNORMAL) Ferritin (11/08/2024 10:05 PM CDT) FERRITIN 815(H) 5 - 204 ng/mL 11/09/2024 12:29 AM CDT [facility] Blood Venipuncture / Unknown 11/08/2024 10:05 PM CDT 11/08/2024 10:14 PM CDT us Gia Kumarler COTTON OPENER, BROWNFIELD REDEVELOPMENT SITE MANAGER CHEMISTRY ORDERABLES Belia l Result [facility] [address] [place] [address] * US - ABDOMEN/PELVIS (10/21/2024 12:00 AM [...] C. difficile 11/08/2024 11/08/2024 Insurance MEDICAID [employer] [facility] Advance Directives Documents on File Type Date Recorded Patient Ginner Expl anation Power of Environmental Programs Specialist for Health Care 2024 3:05 PM POA-HC, 10/31/2024 * Full Code (Latest Code Status on File) Date Activated Date Inactivated Comments 11/08/2024 9:33 PM CPR-Full Treatm ent: FULL ARREST: Attempt Resuscitation/CPR wit intubation and mechanical ventilation. PRE-ARREST: Use entire range of life support measures to stabilize the patient. Care Teams Ticketing Agent Relationship Specialty Start Date End Date Joellen Shepherd, COTTON OPENER, BROWNFIELD REDEVELOPMENT SITE MANAGER [address] [place] [address] PCP - General Advanced Practice Nurse 11/09/24
[2024-12-13 16:27] LABS: Alanine Aminotransferase 21 U/L (14-59); Albumin Level 3.9 g/dL (3.4-5.0); Alkaline Phosphatase 99 U/L (46-116); Anion Gap 11 mmol/L (4-12); Aspartate Amino Transferase 13 U/L (15-37); Bilirubin,Total 0.2 mg/dL (0.00-1.00); Blood Urea Nitrogen 21 mg/dL (7-18); Calcium 9.4 mg/dL (8.5-10.1); Carbon Dioxide 26 mmol/L (21-32); Chloride 98 mmol/L (98-108); Estimated Glomerular Filt Rate 37; Glucose 107 mg/dL (70-99); Magnesium 1.7 mg/dL (1.8-2.4); Osmolality Calculated 283 mOsm/kg (285-295); Potassium 4.1 mmol/L (3.5-5.1); Sodium 135 mmol/L (136-145); Total Protein 7.2 g/dL (6.4-8.2)
== END 2024-12-13 14:41 | disposition home or self-care (01) ==
LOC: CHSLAB 14:41
PROVIDERS: PCP Nurse Practitioner Family; Visit Provider Nurse Practitioner Family
DX: N17.9 Acute kidney failure, unspecified (principal); E83.42 Hypomagnesemia
CPT/HCPCS: 36415; 80053; 83735

== ENCOUNTER 2024-12-26 14:17 | Outpatient (CLI) | payer OTHER, SELFPAY ==
--- OUTSIDE RECORDS SUMMARY | 2024-12-26 14:20 | XMS_ITS | Encounter Summary ---
Author Organization [facility] Address [address] [place] [address] Phone Care Team Providers Care Climatologist Name Role Phone Joellen Basilio APRN, LOGISTICS PLANNER Primary Care Provi jameel Neo Mcfadden APRN, LOGISTICS PLANNER Unavailable [phone] Reason for Referral * Consult, Test & Initiate Treatment (Routine) - Open Specialty Diagnoses / Procedures Referred By Clint robbins Referred To Contact Diagnoses Urinary retention Neo Mcfadden APRN, LOGISTICS PLANNER [address] [place] [address] Phone: tel: fax: Referral ID Status Reason Start Date Expiration Date Visits Re quested Visits Authorized [id number] Open 12/26/2024 1 1 Scheduling Instructions Elham is being referred to [facility] or other specialist in patient's insurance network for Urodyanamics. Please call sister Janie to help coordinate appointment [phone] See below for Elham's current medications, allergies and problem list. CURRENT MEDS: Current Outpatient Medications: Cyanocobalamin (VITAMIN B 12 PO), Take by mouth., Disp: , Rfl: ferrous sulfate 325 (65 Fe) MG Tablet, Take 325 mg by mouth., Disp: , Rfl: folic acid (FOLVITE) 1 MG Tablet, Take 1 Tablet by mouth daily., Disp: 30 Tablet, Rfl: 0 hydrOXYzine (ATARAX) 25 MG Tablet, Take 1 Tablet by mouth every 8 hours as needed for Anxiety., Disp: 30 Tablet, Rfl: 0 lisinopril (PRINIVIL, ZESTRIL) 5 MG Tablet, Take 1 Tablet by mouth daily., Disp: 30 Tablet, Rfl: 0 nicotine (NICODERM CQ) 21 MG/24HR PATCH 24 HR, 1 Patch by Transdermal route daily as needed for Other (smoking cessation)., Disp: 30 Patch, Rfl: 0 NIFEdipine CR (PROCARDIA-XL) 30 MG TABLET SR 24 HR, Take 30 mg by mouth., Disp: , Rfl: ondansetron (ZOFRAN-ODT) 4 MG TABLET DISPERSIBLE, Take 1 Tablet by mouth every 6 hours as needed for Nausea - 1st line., Disp: 10 Tablet, Rfl: 0 sulfamethoxazole-trimethoprim DS (BACTRIM DS, SEPTRA DS) 800-160 MG Tablet, Take 2 Tablets by mouth., Disp: , Rfl: tamsulosin (FLOMAX) 0.4 MG Capsule, Take 0.4 mg by mouth., Disp: , Rfl: traZODone (DESYREL) 50 MG Tablet, Take 50 mg by mouth., Disp: , Rfl: No current facility-administered medications for this visit. ALLERGIES: -- Penicillin G -- Swelling -- Mouth and throat swell. -- Latex -- Unknown -- Levofloxacin -- Itching -- Iodinated Contrast Media -- Rash -- Mupirocin -- Rash -- Sulfa Antibiotics -- Nausea PROBLEM LIST: Patient Active Problem List: Acute urinary retention Hypertensive urgency Sepsis (HCC) OMAIRA (acute kidney injury) (HCC) Ileus (HCC) Cholecystitis Diarrhea Normocytic anemia Hypokalemia Polysubstance dependence (HCC) Tobacco dependency Alcohol dependency (HCC) Reason for Visit * Reason Comments Urinary Retention * Consult, Test & Initiate Treatment (Routine) - Open Specialty Diagnoses / Procedures Referred By Clint t Referred To Contact Urology Diagnoses Neuromuscular dysfunction of bladder, unspecified Joellen Basilio, MICHAEL, LOGISTICS PLANNER [address] [place] [address] Phone: tel: fax: [facility] [address] [place] [address] Phone: tel: fax: Referral ID Status Reason Start Date Expiration Date Visits Re quested Visits Authorized [id number] Open 1 1 Encounter Details Date Type Department Care Team (Late st Contact Info) Description 12/26/2024 10:45 AM CDT Office Visit [facility] [address] [place] [address] Neo Mcfadden, ECONOMETRICIAN, LOGISTICS PLANNER [address] [place] [address] Urinary retention (Primary Dx) Discharge Disposition: Discharged to home or Selfcare Social History Tobacco Use Types Packs/Day Years Used Date Smoking Tobacco: Every Day Cigarettes 1 26.4 Started: 1998 Passive Smoke Exposure: Current Tobacco Cessation:Ready to Q uit: Not Asked; Counseling Given: Not Answered Alcohol Use Standard Drinks/Week Comments Not Currently 0 (1 standard drink = 0.6 oz pure alcohol) Around a pint a day. last drink 5 weeks ago [employer] Answer Date Recorded In the past 12 months has [employer], gas, oil, or water [employer] threatened to shut off services in your home? Patient declined 11/08/2024 Social Connection and Isolation Panel [NHANES] A nswer Date Recorded In a typical week, how many times do you talk on the phone with family, friends, or neighbors? Patient declined 11/08/2024 How often do you get togethe r with friends or relatives? Patient declined 11/08/2024 How often do you attend christian or taoism serv ices? Patient declined 11/08/2024 Do you [...] medical care, and heating? Patient declined 11/08/2024 [facility] - Occupational Stress [...] any time in the past 12 m [facility], were you homeless or living in a alf (including now)? No 11/08/2024 Sexually Active Control Partners Comments Not Currently Comments No Sex and Gender Information Value Date Recorded Sex Assigned at Not on file Legal Sex Female 1:48 PM CDT Gender Identity Not on file Sexual Orientation Not on file documented as of this encounter Last Filed Vital Signs Vital Sign Reading Time Taken Comments Blood Pressure 107/72 12/26/2024 10:48 AM CDT Pulse 93 12/26/2024 10:48 AM CDT Temperature - - Respiratory Rate 14 12/26/2024 10:48 AM CDT Oxygen Saturation 97% 12/26/2024 10:48 AM CDT Inhaled Oxygen Concentration - - Weight 55.5 kg (122 lb 6.4 oz) 12/26/2024 10:48 AM CDT Height 165.1 cm (5' 5 ) 12/26/2024 10:48 AM CDT Body Mass Index 20.37 12/26/2024 10:48 AM CDT documented in this encounter Progress Notes * Neo Mcfadden, MICHAEL, LOGISTICS PLANNER - 12/26/2024 10:45 AM CDT UR[facility] [address] [facility], [address] [place] [address] PHONE: FAX: Assessment & Plan Urinary retention-we discussed that due to a large amount of retained urine she likely has a neurogenic bladder. Recommend obtaining urodynamics to assess bladder function. Due to patient's insurancewould need to refer to [facility]. We discussed his first management of her urinary retention she will need some kind of catheterization until urodynamics can be obtained. We discussed continuing with indwelling catheter, clean intermittent catheterization, and a suprapubic tube. After thorough discussion patient elects to learn clean intermittent catheterization. Patient will need to use 14 Czech female catheter up to 4 times daily. Patient was instructed on CIC and was able to pass catheter in office prior to leaving. Subjective: 12/26/2024 HPI: HPI: Elham Bennett presents to the office as a referral for urinary retention. Patient was admitted to [facility] 11/25 where she was being seen for urosepsis. CT showed mild bilateral hydro due to markedly enlarged bladder. She had catheter placed with 1300 cc of urine returned. Urine and blood cultures growing E. Coli. She was discharged with catheter in place. She reports thatdiamante was hospitalized 2 times prior to this last admission where she was found to be in urinary retention both of these times and had to have a catheter placed. Hx of etoh and amphetamine abuse. The following portions of the patient's chart were reviewed in this encounter and updated as appropriate: ROS: Review of Systems Constitutional: Negative for fever and malaise/fatigue. Genitourinary: Negative for hematuria. Objective: Vital signs: LMP (LMP Unknown) There were no vitals filed for this visit. Physical Exam HENT: Head: Normocephalic. Cardiovascular: Rate and Rhythm: Normal rate. Pulmonary: Effort: Pulmonary effort is normal. No respiratory distress. Abdominal: General: Abdomen is flat. Palpations: Abdomen is soft. Tenderness: There is no abdominal tenderness. Genitourinary: Comments: Cath draining yellow urine Musculoskeletal: Cervical back: Neck supple. Skin: General: Skin is warm and dry. Capillary Refill: Capillary refill takes less than 2 seconds. Neurological: General: No focal deficit present. Mental Status: She is alert and oriented to person, place, and time. Lab Results Component Value Date WBC 10.16 11/14/2024 HEMOGLOBIN 10.8 (L) 11/14/2024 PLATELETCNT 578 (H) 11/14/2024 MCV 90.4 11/14/2024 Lab Results Component Value Date SODIUM 141 11/14/2024 POTASSIUM 3.5 11/14/2024 CHLORIDE 106 11/14/2024 CO2VEN 25 11/14/2024 ANIONGAP 13.5 11/14/2024 GLUCOSE 97 11/14/2024 BUN 17 11/14/2024 CREATININE 0.85 11/14/2024 BCRATIO8 20 11/14/2024 TOTALPROTEIN 7.5 11/14/2024 ALBUMIN 3.7 11/14/2024 CALCIUM 9.0 11/14/2024 TBIL 0.2 11/14/2024 SGOTAST 23 11/14/2024 SGPTALT 18 11/14/2024 ALKALINEPHO 83 11/14/2024 GFRNA >60 11/14/2024 GFRA >60 11/14/2024 No results found for: PSASCREEN , PSA , PSAFREE , PSAPCNTFREE , PSATOTAL Results for orders placed or performed during the hospital encounter of 11/14/24 URINALYSIS REFLEX IF INDICATED BY ABNORMAL RESULTS Result Value Ref Range Status SPECIFIC GRAVITY 1.010 1.003 - 1.030 Final URINE PH 7.0 5.0 - 9.0 Final WBC ESTERASE 25 /ul (A) Negative Final NITRITE Negative Negative Final PROTEIN, RANDOM URINE 100 mg/dL (A) Negative Final URINE GLUCOSE, QUAL Negative Negative Final URINE KETONES Negative Negative Final UROBILINOGEN Normal Normal mg/dL Final URINE BLOOD 50 /uL (A) Negative billy/ul Final URINALYSIS COLOR Yellow Final URINALYSIS CLARITY Clear Final WBC (Urine) 0-5 Negative, 0-5 /hpf Final URINE RBC'S 11-20 (A) Negative, 0-2 /hpf Final EPITHELIAL CELLS Small amount /lpf Final BACTERIA, URINE Few (A) Negative /hpf Final No results found for: TESTOSTTTL No results found for this or any previous visit from the past 365 days. There are no diagnoses linked to this encounter. By: Neo Mcfadden APRN, CNP, 12/26/2024, 8:38 AM CDT Primary Care Physician: JOELLEN BASILIO APRN, CNP documented in this encounter Plan of Treatment Scheduled Referrals Name Type Priority Associated Diagnoses Orde r Schedule EXTERNAL UROLOGY REFERRAL Outpatient Referral Routine Urinary retention Expected: 12/26/2024, Expires: 12/26/2025 documented as of this encounter Visit Diagnoses Diagnosis Urinary retention- Primary Retention of urine, unspecified documented in this encounter Additional Health Concerns Infection Onset Date Last Indicated Resolved Time C. difficile 11/08/2024 11/08/2024 documented as of this encounter Care Teams Climatologist Relationship Specialty Start Date End Date Joellen Basilio APRN, CNP [address] [place] [address] PCP - General Advanced Practice Nurse 11/09/24 Neo Mcfadden APRN, CNP [address] [place] [address] Nurse Practitioner Advanced Practice Nurse 12/22/24 documented as of this encounter
--- OUTSIDE RECORDS SUMMARY | 2024-12-26 14:20 | XMS_ITS | Encounter Summary ---
Author Organization [facility] Care Team Providers Care Sole Polisher Name Role Phone Joellen Shepherd WELDER AND FITTER, TOUR COUNSELOR Primary Care Provi jameel Neo Mcfadden APRN, TOUR COUNSELOR Unavailable [phone] Encounter Details Date Type Department Care Team (Latest Contact Info) Description 12/26/2024 Travel Social History Tobacco Use Types Packs/Day Years Used Date Smoking Tobacco: Every Day Cigarettes 1 26.4 Started: 1998 Passive Smoke Exposure: Current Alcohol Use Standard Drinks/Week Comments Not Currently 0 (1 standard drink = 0.6 oz pure alcohol) Around a pint a day. last drink 5 weeks ago [facility] [employer] Answer Date Recorded In the past 12 months has [employer], gas, oil, or water [employer] threatened to shut off services in your home? Patient declined 11/08/2024 Social Connection and Isolation Panel [NHANES] A nswer Date Recorded In a typical week, how many times do you talk on the phone with family, friends, or neighbors? Patient declined 11/08/2024 How often do you get togethe r with friends or relatives? Patient declined 11/08/2024 How often do you attend pentecostalism or sabianist serv ices? Patient declined 11/08/2024 Do you belong to any clubs o r organizations such as pentecostalism groups, unions, fraternal or athletic groups, or [...] medical care, and heating? Patient declined 11/08/2024 [facility] - Occupational Stress Questionnaire Answer Date Recorded [...] any time in the past 12 m [facility], were you homeless or living in a jail (including now)? No 11/08/2024 Sexually Active Control Partners Comments Not Currently Comments No Sex and Gender Information Value Date Recorded Sex Assigned at Not on file Legal Sex Female 1:48 PM CDT Gender Identity Not on file Sexual Orientation Not on file documented as of this encounter Plan of Treatment Not on file documented as of this encounter Visit Diagnoses Not on filedocumented in this encounter Additional Health Concerns Infection Onset Date Last Indicated Resolved Time C. difficile 11/08/2024 11/08/2024 documented as of this encounter Care Teams Sole Polisher Relationship Specialty Start Date End Date Joellen Shepherd, WELDER AND FITTER, TOUR COUNSELOR [address] [place] [address] PCP - General Advanced Practice Nurse 11/09/24 Neo Mcfadden APRN, TOUR COUNSELOR [address] [place] [address] Nurse Practitioner Advanced Practice Nurse 12/22/24 documented as of this encounter
--- OUTSIDE RECORDS SUMMARY | 2024-12-26 14:20 | XMS_ITS | Clinical Summary ---
Author Organization [facility] Address [address] [place] [address] Phone Care Team Providers Care Parts Counter Associate Name Role Phone Joellen Shepherd SHELLFISH FARMING SUPERVISOR, BANQUET SET UP PERSON Primary Care Provi jameel Neo Mcfadden SHELLFISH FARMING SUPERVISOR, BANQUET SET UP PERSON Unavailable [phone] Allergies Active Allergy Reactions Criticality Noted Date Comments Iodinated Contrast Media Rash Low 11/08/2024 Latex Unknown Medium 11/08/2024 Levofloxacin Itching Medium 11/08/2024 Mupirocin Rash Low 11/08/2024 Penicillin G Swelling High 11/08/2024 Mouth and throat swell. Sulfa Antibiotics Nausea Low 11/08/2024 Medications folic acid (FOLVITE) 1 MG Tablet Take 1 Tablet by mouth daily. 30 Tablet 11/13/19 25 Active hydrOXYzine (ATARAX) 25 MG Tablet Take 1 Tablet by mouth every 8 hours as needed for Anxiety. 30 Tablet 11/12/19 25 Active nicotine (NICODERM CQ) 21 MG/24HR PATCH 24 HR 1 Patch by Transdermal route daily as needed for Other (smoking cessation). 30 Patch 11/12/19 25 Active ondansetron (ZOFRAN-ODT) 4 MG TABLET DISPERSIBLE Take 1 Tablet by mouth every 6 hours as needed for Nausea - 1st line. 10 Tablet 11/12/19 25 Active lisinopril (PRINIVIL, ZESTRIL) 5 MG Tablet Take 1 Tablet by mouth daily. 30 Tablet 11/15/19 25 Active NIFEdipine CR (PROCARDIA-XL) 30 MG TABLET SR 24 HR Take 30 mg by mouth. 12/06/19 25 Active tamsulosin (FLOMAX) 0.4 MG Capsule Take 0.4 mg by mouth. 12/06/19 25 Active Cyanocobalamin (VITAMIN B 12 PO) Take by mouth. Activ e sulfamethoxazol e-trimethoprim DS (BACTRIM DS, SEPTRA DS) 800-160 MG Tablet Take 2 Tablets by mouth. 12/06/19 25 Active ferrous sulfate 325 (65 Fe) MG Tablet Take 325 mg by mouth. 12/06/19 25 Active traZODone (DESYREL) 50 MG Tablet Take 50 mg by mouth. 12/06/19 25 Active thiamine (VITAMIN B1) 100 MG Tablet Take 1 Tablet by mouth daily for 30 days. 30 Tablet 11/13/19 25 025 oxybutynin (DITROPAN) 5 MG Tablet 12/02/19 25 025 Discontinu ed(Side effects) Active Problems Problem Noted Date Diagnosed Date Acute urinary retention 11/08/2024 Hypertensive urgency 11/08/2024 Sepsis OMAIRA (acute kidney injury) Ileus Cholecystitis Diarrhea Normocytic anemia Hypokalemia Polysubstance dependence Tobacco dependency Alcohol dependency Encounters Date Type Department Care Team Description 12/26/2024 10:45 AM CDT Office Visit [facility] [place] [address] Neo Mcfadden APRN, BANQUET SET UP PERSON Urinary retention (Primary Dx) Discharge Disposition: Discharged to home or Selfcare 12/26/2024 Travel 12/06/2024 Telephone [facility] [address] [place] [address] Neo Mcfadden APRN, JAMAL 12/05/2024 [facility] [address] [place] [address] Bettye Whitaker RN SN - OASIS TRANSFER W/DC 11/21/2024 [facility] [address] [place] [address] Elham Hitchcock OT TELEPHONE ENCOUNTER 11/21/2024 Home Care Visit [address] [address] Bettye Whitaker, RN TELEPHONE ENCOUNTER 11/16/2024 1:30 PM CDT Home Care Visit [address] [address] Keri Lopez, ACCOUNT CONSULTANT ACCOUNT CONSULTANT - HOME VISIT 11/16/2024 Home Care Visit [address] [address] Meg Cassidy, PT CASE COMMUNICATION 11/15/2024 2:30 PM CDT Home Care Visit [address] [address] Bettye Whitaker, RN SN - OASIS START OF CARE 11/15/2024 Plan of Care Documentation [address] [address] 11/14/2024 7:08 AM CDT - 11/14/2024 11:59 AM CDT [facility] [address] [place] [address] Andrei Yao DO Hypertension Discharge Disposition: Discharged to home or Selfcare 11/14/2024 Travel 11/08/2024 8:15 PM CDT - 11/12/2024 12:26 PM CDT [facility] [address] [place] [address] Sanjay Reed MD Sepsis (HCC) Discharge Disposition: [...] a day. last drink 5 weeks ago [facility] Utilities Answer Date Recorded In the past 12 months has e [employer], gas, oil, or water Network18 threatened to shut off services in your home? Patient declined 11/08/2024 Social Connection and Isolation Panel [NHANES] A nswer Date Recorded In a typical week, how many times do you talk on the phone with family, friends, or neighbors? Patient declined 11/08/2024 How often do you get togethe r with friends or relatives? Patient declined 11/08/2024 How often do you attend scientologist or jewish serv ices? Patient declined 11/08/2024 Do you belong to any clubs o r organizations such as scientologist groups, unions, fraternal or athletic groups, or [...] medical care, and heating? Patient declined 11/08/2024 [facility] - Occupational Stress [...] were you homeless or living in a retirement (including now)? No 11/08/2024 Sexually Active Control [...] Pulse 93 12/26/2024 10:48 AM CDT Temperature 37.1 C (98.7 F) 11/15/2024 2:49 PM CDT Respiratory Rate 14 12/26/2024 10:48 AM CDT Oxygen Saturation 97% 12/26/2024 10:48 AM CDT Inhaled Oxygen Concentration - - Weight 55.5 kg (122 lb 6.4 oz) 12/26/2024 10:48 AM CDT Height 165.1 cm (5' 5 ) 12/26/2024 10:48 AM CDT Body Mass Index 20.37 12/26/2024 10:48 AM CDT Plan of Treatment Health Maintenance [...] Cancer Screening 11/09/2020 SARS-COV-2 Immunization ( - season) 2024 Influenza Immunization (Seas on Ended) [...] RESULTS (11/14/2024 9:53 AM CDT) Pathologist [facility] SPECIFIC GRAVITY 1.010 1.003 - 1.030 11/14/2024 10:51 AM CDT [facility] URINE PH 7.0 5.0 - 9.0 11/14/2024 10:51 AM CDT [facility] WBC ESTERASE 25 /ul(A) Negative 11/14/2024 10:51 AM CDT [facility] NITRITE Negative Negative 11/14/2024 10:51 AM CDT [facility] PROTEIN, RANDOM URINE 100 mg/dL(A) Negative 11/14/2024 10:51 AM CDT [facility] URINE GLUCOSE, QUAL Negative Negative 11/14/2024 10:51 AM CDT [facility] URINE KETONES Negative Negative 11/14/2024 10:51 AM CDT [facility] UROBILINOGEN Normal Normal mg/dL 11/14/2024 10:51 AM CDT [facility] URINE BLOOD 50 /uL(A) Negative billy/ul 11/14/2024 10:51 AM CDT [facility] URINALYSIS COLOR Yellow 11/15/19 10:51 AM CDT [facility] URINALYSIS CLARITY Clear 11/14/2024 10:51 AM CDT [facility] WBC (Urine) 0-5 Negative, 0-5 /hpf 11/14/2024 10:51 AM CDT [facility] URINE RBC'S 11-20(A) Negative, 0-2 /hpf 11/14/2024 10:51 AM CDT [facility] EPITHELIAL CELLS Small amount /lpf 2024 10:51 AM CDT [facility] BACTERIA, URINE Few(A) Negative /hpf 11/14/2024 10:51 AM CDT [facility] Urine (Indwelling Catheter) Non-Phlebotomy Collection / Unknown 11/14/2024 9:53 AM CDT 11/14/2024 10:27 AM CDT us Andrei Yao DO URINE ORDERABLES Final Result [facility] [place] [address] * EKG 12 LEAD (11/14/2024 8:07 AM CDT) Ventricular Rate 99 BPM EXTERNAL EKG Atrial Rate 99 BPM EXTERNAL EKG P-R Interval 124 ms EXTERNAL EKG QRS Duration 92 ms EXTERNAL EKG Q-T Duration 376 ms EXTERNAL EKG QTC CALCULATION 482 ms EXTERNAL EKG P Hayden 68 degrees EXTERNAL EKG R Hayden 72 degrees EXTERNAL EKG T Hayden 72 degrees EXTERNAL EKG 11/14/2024 8:07 AM CDT Impressions EXTERNAL EKG - 11/15/2024 4:45 PM CDT Normal sinus rhythm Possible Left atrial enlargement QTcB >= 480 msec Abnormal ECG No previous ECGs available Confirmed by MADELINE SANDOVAL ([id number]) on 11/15/2024 4:45:02 PM Narrative Procedure Note Madeline Sandoval MD - 11/15/2024 IMPRESSION: Normal sinus rhythm Possible Left atrial enlargement QTcB >= 480 msec Abnormal ECG No previous ECGs available Confirmed by MADELINE SANDOVAL ([id number]) on 11/15/2024 4:45:02 PM Andrei Yao DO IMG ECG ORDERABLES Belia l Result Performing Organization Address City/[facility]/ZIP Co de Phone Number EXTERNAL EKG * TROPONIN I, HIGH SENSITIVITY (HSTRP) (11/14/2024 7:53 AM CDT) Pathologist [facility] TROPONIN I, HIGH SENSITIVITY- ESPOSITO 9 <=14 ng/L 11/14/2024 9:12 AM CDT [facility] Comment: High-sensitivity troponin I results are reported in ng/L making the result appear to be 1,000 times higher than the contemporary troponin I value which is reported in ng/ml. Results from [facility]. Blood Venipuncture / Unknown 11/14/2024 7:53 AM CDT 11/14/2024 8:40 AM CDT us Andrei Yao DO CHEMISTRY ORDERABLES Fi nal Result [facility] [address] [place] [address] * (ABNORMAL) Manual Differential (11/14/2024 7:53 AM CDT) BANDS % 2.0 % 11/14/2024 9:22 AM CDT [facility] NEUTROPHILS % 73.0 47.0 - 73.0 % 11/14/2024 9:22 AM CDT [facility] LYMPHOCYTES % 19.0 18.0 - 42.0 % 11/14/2024 9:22 AM CDT [facility] MONOCYTES % 3.0(L) 4.0 - 12.0 % 11/14/2024 9:22 AM CDT [facility] EOSINOPHILS % 3.0 0.0 - 5.0 % 11/14/2024 9:22 AM CDT [facility] NEUTROPHILS ABSOLUTE 7.62 1.60 - 7.70 10(3)/mcL 11/14/2024 9:22 AM CDT [facility] LYMPHOCYTES ABSOLUTE 1.93 1.30 - 3.20 10(3)/mcL 11/14/2024 9:22 AM CDT [facility] MONOCYTES ABSOLUTE 0.30 0.20 - 1.00 10(3)/mcL 11/14/2024 9:22 AM CDT [facility] EOSINOPHILS ABSOLUTE 0.30 0.00 - 0.40 10(3)/[facility] 11/14/2024 9:22 AM CDT [facility] REACTIVE LYMPHOCYTES 1 11/14/2024 9:22 AM CDT [facility] WBC MORPH STATUS Normal 11/15/19 25 9:22 AM CDT [facility] RBC MORPH STATUS Normal 11/15/19 9:22 AM CDT [facility] PLATELET STATUS Normal 9:22 AM CDT [facility] Blood Venipuncture / Unknown 11/14/2024 7:53 AM CDT 11/14/2024 8:40 AM CDT us Andrei Yao DO HEMATOLOGY ORDERABLES F inal Result [facility] [address] [place] [address] * (ABNORMAL) CBC with Auto Differential (11/14/2024 7:53 AM CDT) Only the most recent of6 resultswithin the time period is included. WBC 10.16 4.00 - 12.00 10(3)/mcL 11/14/2024 9:22 AM CDT [facility] RBC 3.64(L) 3.80 - 5.30 10(6)/mcL 11/14/2024 9:22 AM CDT [facility] HEMOGLOBIN (HGB) 10.8(L) 12.0 - 15.8 g/dL 11/14/2024 9:22 AM CDT [facility] HEMATOCRIT (HCT) 32.9(L) 36.0 - 47.0 % 11/14/2024 9:22 AM CDT [facility] MCV 90.4 82.0 - 96.0 fL 11/14/2024 9:22 AM CDT [facility] MCH 29.7 26.0 - 34.0 pg 11/14/2024 9:22 AM CDT [facility] MCHC 32.8 31.0 - 36.0 g/dL 11/14/2024 9:22 AM CDT [facility] PLATELET COUNT 578(H) 140 - 440 10(3)/mcL 11/14/2024 9:22 AM CDT [facility] RDW 13.3 11.8 - 15.5 % 11/14/2024 9:22 AM CDT [facility] MPV 10.6 9.7 - 12.4 fL 11/14/2024 9:22 AM CDT [facility] NRBC PER 100 WBC 0 11/14/2024 9:22 AM CDT [facility] RESULTS ARE CONSISTENT WITH PERIPHERAL SMEAR REVIEW Yes 11/14/2024 9:22 AM CDT [facility] RBC MORPHOLOGY CONSISTENT WITH INDICES Yes 11/14/2024 9:22 AM CDT [facility] Blood Venipuncture / Unknown 11/14/2024 7:53 AM CDT 11/14/2024 8:40 AM CDT us Andrei Yao DO HEMATOLOGY ORDERABLES F inal Result [facility] [address] [place] [address] * CMP (Comprehensive Metabolic Panel) (11/14/2024 7:53 AM CDT) Only the most recent of2 resultswithin the time period is included. SODIUM 141 136 - 145 mmol/L 11/14/2024 9:07 AM CDT [facility] POTASSIUM 3.5 3.5 - 5.1 mmol/L 11/14/2024 9:07 AM CDT [facility] CHLORIDE 106 98 - 107 mmol/L 11/14/2024 9:07 AM CDT [facility] CO2, VENOUS 25 22 - 30 mmol/L 11/14/2024 9:07 AM CDT [facility] ANION GAP 13.5 <18.0 mmol/L 11/14/2024 9:07 AM CDT [facility] GLUCOSE 97 70 - 99 mg/dL 11/14/2024 9:07 AM CDT [facility] BUN 17 5 - 18 mg/dL 11/14/2024 9:07 AM CDT [facility] CREATININE, BLOOD 0.85 0.60 - 1.00 mg/dL 11/14/2024 9:07 AM CDT [facility] BUN/CREATININE RATIO 20 12 - 20 ratio 11/14/2024 9:07 AM CDT [facility] TOTAL PROTEIN 7.5 6.0 - 8.0 g/dL 11/14/2024 9:07 AM CDT [facility] ALBUMIN 3.7 3.5 - 5.0 g/dL 11/14/2024 9:07 AM CDT [facility] A/G RATIO 1.0 1.0 - 2.2 11/14/2024 9:07 AM CDT [facility] CALCIUM 9.0 8.7 - 10.5 mg/dL 11/14/2024 9:07 AM CDT [facility] T BILI 0.2 0.2 - 1.2 mg/dL 11/14/2024 9:07 AM CDT [facility] SGOT (AST) 23 <43 U/L 11/14/2024 9:07 AM CDT [facility] SGPT (ALT) 18 <56 U/L 11/14/2024 9:07 AM CDT [facility] ALKALINE PHOSPHATASE 83 40 - 150 U/L 11/14/2024 9:07 AM CDT [facility] GFR, ESTIMATED >60 >=60 11/14/2024 9:07 AM CDT [facility] Comment: Creatinine Clearance is the preferred criteria for selecting drug dose adjustments in renally impaired patients. The GFR is provided as additional pertinent clinical information. GFR is reported in mL/min/1.73 sq m. Calculation based on the Chronic Kidney Disease Epidemiology Collaboration (CKD- EPI) equation refit without adjustment for race. GFR, EST. >60 >=60 025 9:07 AM CDT [facility] GFR, EST. NONAFRICAN >60 >=60 11/14/2024 9:07 AM CDT [facility] Blood Venipuncture / Unknown 11/14/2024 7:53 AM CDT 11/14/2024 8:40 AM CDT us Andrei Yao DO CHEMISTRY ORDERABLES Fi nal Result Performing Organization Address City/[facility]/ZIP Co de Phone Number [facility] [place] [address] * EKG SCAN (11/14/2024 12:00 AM CDT) 11/14/2024 us Provider Scan IMG ECG ORDERABLES Final Result RESULTING AGENCY * (ABNORMAL) BMP with Ca, Total (11/12/2024 4:23 AM CDT) Only the most recent of3 resultswithin the time period is included. SODIUM 141 136 - 145 mmol/L 11/12/2024 5:58 AM CDT [facility] POTASSIUM 3.6 3.5 - 5.1 mmol/L 11/12/2024 5:58 AM CDT [facility] CHLORIDE 109(H) 98 - 107 mmol/L 11/12/2024 5:58 AM CDT [facility] CO2, VENOUS 23 22 - 30 mmol/L 11/12/2024 5:58 AM CDT [facility] ANION GAP 12.6 <18.0 mmol/L 11/12/2024 5:58 AM CDT [facility] GLUCOSE 77 70 - 99 mg/dL 11/12/2024 5:58 AM CDT [facility] BUN 12 5 - 18 mg/dL 11/12/2024 5:58 AM CDT [facility] CREATININE, BLOOD 0.95 0.60 - 1.00 mg/dL 11/12/2024 5:58 AM CDT [facility] BUN/CREATININE RATIO 13 12 - 20 ratio 11/12/2024 5:58 AM CDT [facility] CALCIUM 8.4(L) 8.7 - 10.5 mg/dL 11/12/2024 5:58 AM CDT [facility] GFR, ESTIMATED >60 >=60 11/12/2024 5:58 AM CDT [facility] Comment: Creatinine Clearance is the preferred criteria for selecting drug dose adjustments in renally impaired patients. The GFR is provided as additional pertinent clinical information. GFR is reported in mL/min/1.73 sq m. Calculation based on the Chronic Kidney Disease Epidemiology Collaboration (CKD- EPI) equation refit without adjustment for race. GFR, EST. >60 >=60 025 5:58 AM CDT [facility] GFR, EST. NONAFRICAN >60 >=60 11/12/2024 5:58 AM CDT [facility] Blood Venipuncture / Unknown 11/12/2024 4:23 AM CDT 11/12/2024 5:34 AM CDT us Amy Reddy Ronal SHELLFISH FARMING SUPERVISOR, BANQUET SET UP PERSON CHEMISTRY ORDERABLES Final Result Performing Organization Address [facility]/ZIP Co de Phone Number [facility] [place] [address] * Culture, Blood (11/11/2024 5:38 PM CDT) Only the most recent of2 resultswithin the time period is included. CULTURE RESULTS NO GROWTH WITHIN 5 DAYS, FINAL RESULT 11/16/2024 6:01 PM CDT [facility] Culture (Peripheral Vein) Venipuncture / Unknown 11/11/2024 5:38 PM CDT 11/11/2024 5:40 PM CDT us Sanjay Reed MD MICROBIOLOGY - GENERAL O RDERABLES Final Result Performing Organization Address [facility] Co de Phone Number [facility] [address] [place] [address], * RHYTHM STRIP (2024 12:00 AM CDT) [...] mm. No pericholecystic fluid. No positive sonographic Radcliff sign reported. BILIARY: There is no intrahepatic or extrahepatic biliary ductal dilatation. Common bile duct measures 0.2 cm in diameter. OTHER: No other significant findings. THIS IS AN ELECTRONICALLY VERIFIED FINAL REPORT 11/09/2024 1:54 PM - Electronically signed by Sparkle Leblanc M.D. FT: FT Report ID: [id number] Reading Location: [id number] Procedure Note Sparkle Zelaya MD - 11/09/2024 [...] mm. No pericholecystic fluid. No positive sonographic Radcliff sign reported. BILIARY: There is no intrahepatic or extrahepatic biliary ductal dilatation. Common bile duct measures 0.2 cm in diameter. OTHER: No other significant findings. THIS IS AN ELECTRONICALLY VERIFIED FINAL REPORT 11/09/2024 1:54 PM - Electronically signed by Sparkle Leblanc M.D. FT: FT Report ID: [id number] Reading Location: [place] [address] IMPRESSION: Biliary sludge and borderline gallbladder wall thickening. No pericholecystic fluid or positive sonographic Fernando's sign. Findings are equivocal for acute cholecystitis. If there is persistent clinical concern, HIDA scan may be performed. Mike Parra MD [facility] [place] ORDERABLES Fin al Result * (ABNORMAL) Renal Function Panel (11/09/2024 4:23 AM CDT) SODIUM 138 136 - 145 mmol/L 11/09/2024 7:21 AM CDT [facility] POTASSIUM 3.3(L) 3.5 - 5.1 mmol/L 11/09/2024 7:21 AM CDT [facility] CHLORIDE 107 98 - 107 mmol/L 11/09/2024 7:21 AM CDT [facility] CO2, VENOUS 20(L) 22 - 30 mmol/L 11/09/2024 7:21 AM CDT [facility] ANION GAP 14.3 <18.0 mmol/L 11/09/2024 7:21 AM CDT [facility] GLUCOSE 85 70 - 99 mg/dL 11/09/2024 7:21 AM CDT [facility] BUN 37(H) 5 - 18 mg/dL 11/09/2024 7:21 AM CDT [facility] CREATININE, BLOOD 2.43(H) 0.60 - 1.00 mg/dL 11/09/2024 7:21 AM CDT [facility] BUN/CREATININE RATIO 15 12 - 20 ratio 11/09/2024 7:21 AM CDT [facility] ALBUMIN 3.0(L) 3.5 - 5.0 g/dL 11/09/2024 7:21 AM CDT [facility] CALCIUM 8.3(L) 8.7 - 10.5 mg/dL 11/09/2024 7:21 AM CDT [facility] PHOSPHORUS 4.4 2.5 - 4.5 mg/dL 11/09/2024 7:21 AM CDT [facility] GFR, ESTIMATED 24(L) >=60 11/09/2024 7:21 AM CDT [facility] Comment: Creatinine Clearance is the preferred criteria for selecting drug dose adjustments in renally impaired patients. The GFR is provided as additional pertinent clinical information. GFR is reported in mL/min/1.73 sq m. Calculation based on the Chronic Kidney Disease Epidemiology Collaboration (CKD- EPI) equation refit without adjustment for race. GFR, EST. 26(L) >=60 025 7:21 AM CDT [facility] GFR, EST. NONAFRICAN 21(L) >=60 11/09/2024 7:21 AM CDT [facility] Blood Venipuncture / Unknown 11/09/2024 4:23 AM CDT 11/09/2024 5:57 AM CDT us Gia Walton SHELLFISH FARMING SUPERVISOR, BANQUET SET UP PERSON CHEMISTRY ORDERABLES Belia l Result [facility] [place] [address] * Magnesium (Mg) (11/09/2024 4:23 AM CDT) Only the most recent of2 resultswithin the time period is included. MAGNESIUM 2.6 1.6 - 2.6 mg/dL 11/09/2024 7:21 AM CDT [facility] Blood Venipuncture / Unknown 11/09/2024 4:23 AM CDT 11/09/2024 5:57 AM CDT us Gia Walton SHELLFISH FARMING SUPERVISOR, BANQUET SET UP PERSON CHEMISTRY ORDERABLES Belia l Result [facility] [facility] [place] [address] * CT RENAL STONE STUDY (ABDOMEN AND [...] Liv Lauren M.D. SN: SN Report ID: [id number] Reading Location: [id number] Procedure Note Liv Lauren MD - 11/09/2024 [...] Liv Lauren M.D. SN: SN Report ID: [id number] Reading Location: [id number] IMPRESSION: No acute intra-abdominal or pelvic abnormality seen. Daniel catheter and rectal tube in place. Tiny fat containing periumbilical hernia. us Gia Walton APRN, CNP IMG CT ORDERABLES Final R esult * CONSULT - OTHER (11/09/2024 12:00 AM CDT) Only the most recent of4 resultswithin the time period is included. 11/09/2024 us Provider Scan GENERIC SCAN ORDERS CONSULT Belia l Result Performing Organization Address City/[facility]/ZIP Co de Phone Number SCAN * (ABNORMAL) C. DIFF BY PCR (11/08/2024 11:25 PM CDT) C DIFF TOXIN DNA BY PCR Positive(A ) Negative, Invalid 11/09/2024 1:37 AM CDT [facility] Comment:Please see Reflex C. diff Quik Chek Complete order results Other STOOL SPECIMEN / Unknown Non-Phlebotomy Collection / Unknown 11/08/2024 11:25 PM CDT 11/08/2024 11:49 PM CDT us Gia Walton APRN, CNP MICROBIOLOGY - GENERAL OR DERABLES Final Result Performing Organization Address City/[facility]/ZIP Co de Phone Number [facility] [address] [place] [address] * REFLEX C DIFF QUIK CHEK COMPLETE (11/08/2024 11:25 PM CDT) TOXIN A/B Negative Negative, INVALID, Not Applicable 11/09/2024 1:37 AM CDT [facility] Comment:These results are mullen ggestive of C. difficile colonization and may not reflect C. difficile infection requiring treatment. The significance of these results must be interpreted in the context of the patient's clinical scenario. Other STOOL SPECIMEN / Unknown Non-Phlebotomy Collection / Unknown 11/08/2024 11:25 PM CDT 11/08/2024 11:49 PM CDT us Gia Walton APRN, BANQUET SET UP PERSON MICROBIOLOGY - GENERAL OR DERABLES Final Result [facility] [address] [place] [address] * Culture, Stool (11/08/2024 11:25 PM CDT) CULTURE RESULTS NEGATIVE FOR CAMPYLOBACTER ANTIGEN 2024 3:41 PM CDT [facility] CULTURE RESULTS SHIGA TOXIN 1 AND SHIGA TOXIN 2 NOT DETECTED 2024 3:41 PM CDT [facility] CULTURE RESULTS Heavy Mixed genesis 2024 3:41 PM CDT [facility] Culture STOOL SPECIMEN / Unknown Non-Phlebotomy Collection / Unknown 11/08/2024 11:25 PM CDT 11/08/2024 11:49 PM CDT Narrative [facility] - 2024 3:41 PM CDT Unless stated above as an isolate, no Salmonella, Shigella, E Coli O157, Aeromonas, or Pleisiomonas species isolated us Gia Walton APRN, BANQUET SET UP PERSON MICROBIOLOGY - GENERAL OR DERABLES Final Result [facility] [address] [place] [address], * Ur Sodium (Na) Random (11/08/2024 11:24 PM CDT) SODIUM, RANDOM URINE 42 mmol/L 11/09/2024 2:45 PM CDT [facility] Comment:No reference range h as been established. Consider Clinical Correlation. Urine Non-Phlebotomy Collection / Unknown 11/08/2024 11:24 PM CDT 11/08/2024 11:48 PM CDT us Gia Walton APRN, CNP URINE ORDERABLES Final Re sult Performing Organization Address City/[facility]/ZIP Co de Phone Number [facility] [address] [place] [address], [place] * Ur Potassium (K) Random (11/08/2024 11:24 PM CDT) UR POTASSIUM, RANDOM 21 mmol/L 11/09/2024 2:45 PM CDT [facility] Comment:No reference range h as been established. Consider Clinical Correlation. Urine Non-Phlebotomy Collection / Unknown 11/08/2024 11:24 PM CDT 11/08/2024 11:48 PM CDT us Gia Walton APRN, JAMAL URINE ORDERABLES Final Re sult Performing Organization Address City/[facility] Co de Phone Number [facility] [address] [place] [address], [place] * Ur Osmolality (11/08/2024 11:24 PM CDT) OSMOLALITY, URINE 271 50 - 1,400 mOsm/kg 11/09/2024 3:27 PM CDT [facility] Urine Non-Phlebotomy Collection / Unknown 11/08/2024 11:24 PM CDT 11/08/2024 11:48 PM CDT us Gia Walton APRN, B[employer] SET UP PERSON URINE ORDERABLES Final Re sult Performing Organization Address City/[facility]/ZIP Co de Phone Number [facility] [address] [place] [address], [place] * Ur Chloride (Cl) Random (11/08/2024 11:24 PM CDT) CHLORIDE, RANDOM URINE 29 mmol/L 11/09/2024 2:45 PM CDT [facility] Comment:No reference range h as been established. Consider Clinical Correlation. Urine Non-Phlebotomy Collection / Unknown 11/08/2024 11:24 PM CDT 11/08/2024 11:48 PM CDT us Gia Walton APRN, CNP URINE ORDERABLES Final Re sult Performing Organization Address City/[facility]/ZIP Co de Phone Number [facility] [address] [place] [address], [place] * (ABNORMAL) IRON,TRANSFERN,CALC.TIBC,%SAT (11/08/2024 10:05 PM CDT) IRON 9(L) 25 - 156 mcg/dL 11/08/2024 11:59 PM CDT [facility] TRANSFERRIN 125(L) 180 - 382 mg/dL 11/08/2024 11:59 PM CDT [facility] TIBC, CALCULATED 156(L) 265 - 497 mcg/dL 11/08/2024 11:59 PM CDT [facility] % SATURATION * 6(L) 15 - 62 % 11/08/2024 11:59 PM CDT [facility] Blood Venipuncture / Unknown 11/08/2024 10:05 PM CDT 11/08/2024 10:14 PM CDT us Gia Walton APRN, JAMAL CHEMISTRY ORDERABLES Belia l Result [facility] [address] [place] [address] * Vitamin B12 (11/08/2024 10:05 PM CDT) VITAMIN B12 238 213 - 816 pg/mL 11/09/2024 12:29 AM CDT [facility] Blood Venipuncture / Unknown 11/08/2024 10:05 PM CDT 11/08/2024 10:14 PM CDT us Gia Walton APRN, JAMAL CHEMISTRY ORDERABLES Belia l Result Performing Organization Address City/[facility]/ZIP Co de Phone Number [facility] [address] [place] [address] * Osmolality Serum (11/08/2024 10:05 PM CDT) OSMOLALITY 295 275 - 295 mOsm/kg 11/09/2024 2:51 PM CDT [facility] Blood Venipuncture / Unknown 11/08/2024 10:05 PM CDT 11/08/2024 10:14 PM CDT Narrative [facility] - 11/09/2024 2:51 PM CDT Result is an averaged value Gia Walton APRN, JAMAL CHEMISTRY ORDERABLES Belia l Result Performing Organization Address [facility]/ZIP Co de Phone Number [facility] [address] [place] [address], [place] * Lactic Acid (Lactate) (11/08/2024 10:05 PM CDT) LACTIC ACID 0.9 0.7 - 2.0 mmol/L 11/08/2024 11:18 PM CDT [facility] Blood Venipuncture / Unknown 11/08/2024 10:05 PM CDT 11/08/2024 10:13 PM CDT us Gia Walton APRN, JAMAL CHEMISTRY ORDERABLES Belia l Result Performing Organization Address City/[facility]/ZIP Co de Phone Number [facility] [address] [place] [address] * FOLIC ACID (FOLATE) (11/08/2024 10:05 PM CDT) FOLATE 11.1 7.0 - 31.4 ng/mL 11/09/2024 12:29 AM CDT [facility] Blood Venipuncture / Unknown 11/08/2024 10:05 PM CDT 11/08/2024 10:14 PM CDT us Gia Walton [employer]ING SUPERVISOR, [employer] SET UP PERSON CHEMISTRY ORDERABLES Belia l Result Performing Organization Address City/[facility] Co de Phone Number [facility] [address] [place] [address] * (ABNORMAL) Ferritin (11/08/2024 10:05 PM CDT) FERRITIN 815(H) 5 - 204 ng/mL 11/09/2024 12:29 AM CDT [facility] Blood Venipuncture / Unknown 11/08/2024 10:05 PM CDT 11/08/2024 10:14 PM CDT us Gia Anton [employer]LL[employer] FARMING SUPERVISOR, [employer]ET SET UP PERSON CHEMISTRY ORDERABLES Belia l Result Performing Organization Address [facility] de Phone Number [facility] [address] [place] [address] * US - ABDOMEN/PELVIS (10/21/2024 12:00 AM CDT) Only the most recent of3 resultswithin the time period is included. 10/21/2024 us Provider Scan IMG US ORDERABLES Final Result Performing Organization Address [facility] de Phone Number SCAN * CT - ABDOMEN/PELVIS (10/20/2024 12:00 AM CDT) 10/20/2024 us Provider Scan IMG CT ORDERABLES Final Result Performing Organization Address [facility] Co de Phone Number SCAN * CARDIOLOGY CONSULT (10/19/2024 12:00 AM [...] Indicated C. difficile 11/08/2024 11/08/2024 Insurance MEDICAID [facility] Advance Directives Documents on File Type Date Recorded Patient Cafe Aide Expl anation Power of Loom Overhauler for Health Care 2024 3:05 PM POA-, 10/31/2024 * Full Code (Latest Code Status on File) Date Activated Date Inactivated Comments 11/08/2024 9:33 PM CPR-Full Treatm ent: FULL ARREST: Attempt Resuscitation/CPR wit intubation and mechanical ventilation. PRE-ARREST: Use entire range of life support measures to stabilize the patient. Care Teams Parts Counter Associate Relationship Specialty Start Date End Date Joellen Shepherd, [employer] SUPERVISOR, B[employer]ET SET UP PERSON [address] [phone] PCP - General Advanced Practice Nurse 11/09/24 Neo Mcfadden APRN, BANQUET SET UP PERSON [address] [place] [address] Nurse Practitioner Advanced Practice Nurse 12/22/24
--- OUTSIDE RECORDS SUMMARY | 2024-12-26 14:20 | XMS_ITS | Clinical Summary ---
Author Organization [facility] Address [address] [place] [address] Care Team Providers Care Proposal Editor Name Role Phone GregoryMilan lepe Primary Care Provider [phone] Allergies Active Allergy Reactions Criticality Noted Date [...] Encounters Date Type Department Care Team Description 12/22/2024 1:00 PM CDT Home Care Visit [address] [address] Princess Garcia RN SN OASIS DISCHARGE/ASSESSMENT 12/07/2024 2:00 PM CDT Home Care Visit [address] [address] Maryjo Machado, PT CASE COMMUNICATION 12/06/2024 Home Care Visit [address] [address] Andreea Geiger RN CASE COMMUNICATION 12/05/2024 11:30 AM CDT Home Care Visit [address] [address] Andreea Geiger RN SN OASIS START OF CARE 12/05/2024 Plan of Care Documentation [address] [address] 12/01/[address] [address] [facility] 11/08/2024 10:25 AM CDT - 11/08/2024 6:46 PM CDT [facility] [place] [address] Sully Hatfield MD Generalized Weakness Discharge Disposition: Transfer to [facility] 11/08/2024 Travel from Last 3 Months [...] of experiencing loneliness or isolatio n Never 12/22/2024 OASIS [id number]: Transportation Answer Date Recorded Lack [...] HPV 11/09/2005 Mammogram Screening 2015 COVID-19 Vaccine ( - 2023-2 5 season) 2024 Meningococcal B Vaccine Aged [...] PCR - STOOL (11/08/2024 5:17 PM CDT) Pathologist [facility] CAMPYLOBACTER PCR (STOOL) NOT DETECTED NOT DETECTED 11/09/2024 4:56 PM CDT [facility] PLESIOMONAS SHIGELLOIDES PCR (STOOL) NOT DETECTED NOT DETECTED 11/09/2024 4:56 PM CDT [facility] SALMONELLA PCR (STOOL) NOT DETECTED NOT DETECTED 11/09/2024 4:56 PM CDT [facility] VIBRIO PCR (STOOL) NOT DETECTED NOT DETECTED 11/09/2024 4:56 PM CDT [facility] VIBRIO CHOLERAE PCR (STOOL) NOT DETECTED NOT DETECTED 11/09/2024 4:56 PM CDT [facility] YERSINIA ENTEROCOLITICA PCR (STOOL) NOT DETECTED NOT DETECTED 11/09/2024 4:56 PM CDT [facility] ENTEROAGGREGATIVE ECOLI PCR (STOOL) NOT DETECTED NOT DETECTED 11/09/2024 4:56 PM CDT [facility] ENTEROPATHOGENIC ECOLI PCR (STOOL) NOT DETECTED NOT DETECTED 11/09/2024 4:56 PM CDT [facility] ENTEROTOXIGENIC ECOLI PCR (STOOL) NOT DETECTED NOT DETECTED 11/09/2024 4:56 PM CDT [facility] SHIGA LIKE TOXIN ECOLI PCR (STOOL) NOT DETECTED NOT DETECTED 11/09/2024 4:56 PM CDT [facility] SHIG/ENTEROINVASIVE ECOLI PCR (STOOL) NOT DETECTED NOT DETECTED 11/09/2024 4:56 PM CDT [facility] CRYPTOSPORIDIUM PCR (STOOL) NOT DETECTED NOT DETECTED 11/09/2024 4:56 PM CDT [facility] CYCLOSPORA CAYETANENSIS PCR (STOOL) NOT DETECTED NOT DETECTED 11/09/2024 4:56 PM CDT [facility] ENTAMOEBA HISTOLYTICA PCR (STOOL) NOT DETECTED NOT DETECTED 11/09/2024 4:56 PM CDT [facility] GIARDIA LAMBLIA PCR (STOOL) NOT DETECTED NOT DETECTED 11/09/2024 4:56 PM CDT [facility] ADENOVIRUS F40/41 PCR (STOOL) NOT DETECTED NOT DETECTED 11/09/2024 4:56 PM CDT [facility] ASTROVIRUS PCR (STOOL) NOT DETECTED NOT DETECTED 11/09/2024 4:56 PM CDT [facility] NOROVIRUS GI/GII PCR (STOOL) NOT DETECTED NOT DETECTED 11/09/2024 4:56 PM CDT [facility] ROTAVIRUS A PCR (STOOL) NOT DETECTED NOT DETECTED 11/09/2024 4:56 PM CDT [facility] SAPOVIRUS PCR (STOOL) NOT DETECTED NOT DETECTED 11/09/2024 4:56 PM CDT [facility] STOOL SPECIMEN / Unknown 11/08/2024 5:17 PM CDT us Solaneg Moody MD MICROBIOLOGY - GENERAL ORDERABLE S Final Result [facility] [address] [place] [address], * (ABNORMAL) CLOSTRIDIUM DIFFICILE (11/08/2024 5:17 PM CDT) GDH ANTIGEN POSITIVE(A) NEGATIVE 11/08/2024 6:20 PM CDT [facility] Comment: CALLED TO [facility] 4.2.25 AT 0810 BY READ BACK AND VERIFIED C DIFFICILE TOXIN A&B (STOOL) POSITIVE(A) NEGATIVE 11/08/2024 6:32 PM CDT [facility] Comment: CALLED TO [facility] ER 1.2.25 AT 0810 BY READ BACK AND VERIFIED COMMENT GDH POSITIVE/TOXI N A & B POSITIVE: POSITIVE FOR TOXIGENIC C. DIFFICILE. (A) GDH NEGATIVE/TOXI N A & B NEGATIVE: NEGATIVE FOR TOXIGENIC C. 11/08/2024 6:32 PM CDT [facility] Comment: CALLED TO ER CALLED PCP 4.1.25 STOOL STOOL SPECIMEN / Unknown 11/08/2024 5:17 PM CDT us Solange Moody MD BODY FLUIDS AND STOOLS ORDERABLE S Final Result [facility] [place] [id number], * CT HEAD WO CON (11/08/2024 12:31 PM CDT) Anatomical Region Laterality Modality Head Computed Tomogra phy 11/08/2024 12:4 6 PM CDT Impressions 11/08/2024 12:47 PM CDT IMPRESSION: No CT evidence of an acute intracranial abnormality. Ordered By: SOLANGE MOODY Interpreted By: Arnaldo Cardoso MD, 11/08/2024 12:46 PM Narrative 11/08/2024 12:47 PM CDT [address] [place] [address] Examination: CT HEAD WO CON, 11/08/2024 12:31 [...] Procedure Note Arnaldo Cardoso MD - 11/08/[address] [place] [address] Examination: CT HEAD WO CON, 11/08/2024 12:31 [...] 12:51 PM Narrative 11/08/2024 1:01 PM CDT [address] [place] [address] Examination: CT of the abdomen and pelvis [...] Procedure Note Ney Arevalo MD - 11/08/2024 [facility] [address] [place] [address] Examination: CT of the abdomen and pelvis [...] By: Ney Arevalo MD, 11/08/2024 12:51 PM Solange Moody MD CT Final Result * ECG 12 lead (11/08/2024 12:09 PM CDT) 11/08/2024 12:0 9 PM CDT Narrative [facility] - 11/09/2024 3:29 PM CDT [address] 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 SPEC DESCRIPTION BLOOD 11/09/19 6:13 PM CDT [facility] SPECIAL REQUESTS BLOOD-AERO BIC BOTTLE ONLY 11/08/2024 6:13 PM CDT [facility] CULTURE RESULT NO GROWTH 5 DAYS 11/13/2024 6:20 PM CDT [facility] BLOOD SPECIMEN OBTAINED FOR BLOOD CULTURE / Unknown 11/08/2024 12:03 PM CDT 11/08/2024 12:05 PM CDT us Solange Moody MD MICROBIOLOGY - GENERAL ORDERABLE S Final Result [facility] [address] [place] [address], [place] [phone] [id number] * LACTIC ACID W REFLEX (SEPSIS) (11/08/2024 11:50 AM CDT) LACTIC ACID VENOUS 1.7 0.4 - 2.0 MMOL/L 11/08/2024 12:17 PM CDT [facility] 11/08/2024 11:5 0 AM CDT us Solange Moody MD LABORATORY Final Result Performing Organization Address City/[facility]/ZIP Co de Phone Number [facility] [place] [address], [place] [phone] * TROPONIN, QUANT (11/08/2024 11:50 AM CDT) TROPONIN I HIGH SENSITIVITY 26 0 - 51 ng/L 11/08/2024 12:17 PM CDT [facility] 11/08/2024 11:5 0 AM CDT us Solange Moody MD LABORATORY Final Result [facility] [address] [facility] [place] [address], * CK (CPK) (11/08/2024 11:50 AM CDT) CPK 96 26 - 192 U/L 11/08/2024 12:17 PM CDT [facility] 11/08/2024 11:5 0 AM CDT Solange Moody MD LABORATORY Final Result [facility] [place] [address], * (ABNORMAL) DRUG SCREEN RAPID (11/08/2024 11:21 AM CDT) CANNABINOIDS SCREEN (U) NEGATIVE NEGATIVE 11/08/2024 11:41 AM CDT [facility] PHENCYCLIDINE PCP (U) NEGATIVE NEGATIVE 11/08/2024 11:41 AM CDT [facility] COCAINE METABOLITES (U) NEGATIVE NEGATIVE 11/08/2024 11:41 AM CDT [facility] METHAMPHETAMINE SCREEN (U) POSITIVE(A) NEGATIVE 11/08/2024 11:41 AM CDT [facility] OPIATE SCREEN (U) NEGATIVE NEGATIVE 025 11:41 AM CDT [facility] AMPHETAMINE SCREEN (U) POSITIVE(A) NEGATIVE 11/08/2024 11:41 AM CDT [facility] BENZODIAZEPINES SCREEN (U) POSITIVE(A) NEGATIVE 11/08/2024 11:41 AM CDT [facility] TRICYCLIC ANTIDEPRESSANT SCREEN (U) NEGATIVE NEGATIVE 11/08/2024 11:41 AM CDT [facility] METHADONE (U) NEGATIVE NEGATIVE 11/08/2024 11:41 AM CDT [facility] BARBITURATES SCREEN (U) NEGATIVE NEGATIVE 11/08/2024 11:41 AM CDT [facility] OXYCODONE SCREEN (U) POSITIVE(A) NEGATIVE 11/08/2024 11:41 AM CDT [facility] URINE TOX COMMENT THIS TEST METHODOLOGY IS DESIGNED AND OFFERED A RAPID TURNAROUND, QUALITATIVE SCREENING PROCEDURE TO AID IN THE IMMEDIATE MEDICAL ASSESSMENT OF PATIENTS SUSPECTED OF SUBSTANCE ABUSE. 11/08/2024 11:20 AM CDT [facility] Comment: CLINICAL CONSIDERATION AND PROFESSIONAL JUDGMENT MUST BE APPLIED TO ANY DRUG OF ABUSE TEST RESULT, BOTH POSITIVE AND NEGATIVE. CONFIRMATORY QUANTITATIVE RESULTS ARE AVAILABLE THROUGH OUR [facility]. URINE SPECIMEN / Unknown 11/08/2024 11:21 AM CDT us Solange Moody MD URINE ORDERABLES Final Result [facility] [address] [place] [address], * (ABNORMAL) URINALYSIS (11/08/2024 11:21 AM CDT) COLOR (U) YELLOW 11/08/2024 11:42 AM CDT [facility] TRANSPARENCY CLEAR 11/08/2024 11:42 AM CDT [facility] SPECIFIC GRAVITY (U) 1.025 1.000 - 1.025 11/08/2024 11:42 AM CDT [facility] U PH 8.5(H) 5.0 - 8.0 11/08/2024 11:42 AM CDT [facility] LEUKOCYTES (U) 2+(A) NEGATIVE 11/08/2024 11:42 AM CDT [facility] NITRITES NEGATIVE NEGATIVE 11/08/2024 11:42 AM CDT [facility] PROTEIN RANDOM (U) 3+(A) NEGATIVE 11/08/2024 11:42 AM CDT [facility] GLUCOSE (U) NEGATIVE NEGATIVE 11/08/2024 11:42 AM CDT [facility] KETONES MG/DL (U) NEGATIVE NEGATIVE 11/08/2024 11:42 AM CDT [facility] UROBILINOGEN 0.2 <1.0 EU/DL 11/08/2024 11:42 AM CDT [facility] BILIRUBIN (U) NEGATIVE NEGATIVE 11/08/2024 11:42 AM CDT [facility] BLOOD (U) 2+(A) NEGATIVE 11/08/2024 11:42 AM CDT [facility] WBC/HPF 10-20(A) 0 - 5 /HPF 11/08/2024 11:42 AM CDT [facility] RBC/HPF 10-20(A) 0 - 5 /HPF 11/08/2024 11:42 AM CDT [facility] EPI/LPF RARE /LPF 11/08/2024 11:42 AM CDT [facility] BACTERIA (U) 3+ /HPF 11/08/2024 11:42 AM CDT [facility] URINE SPECIMEN OBTAINED BY CLEAN CATCH PROCEDURE / Unknown 11/08/2024 11:21 AM CDT us Solange Moody MD URINE ORDERABLES Final Result [facility] [address] [place] [address], * CULTURE URINE (11/08/2024 11:21 AM CDT) SPEC DESCRIPTION URINE CLEAN CATCH 11/08/2024 11:20 AM CDT [facility] SPECIAL REQUESTS NO SPECIAL REQUEST 11/08/2024 11:20 AM CDT [facility] CULTURE RESULT >25,000 TO 50,000 CFU/mL PSEUDOMONAS AERUGINOSA 2024 9:58 AM CDT [facility] URINE SPECIMEN OBTAINED BY CLEAN [...] MICROBIOLOGY - GENERAL ORDERABLE S Final Result [facility] [address] [place] [address], [place] [phone] [facility] [address] [place] [address], [place] [phone] * (ABNORMAL) COMPREHENSIVE METABOLIC PANEL (11/08/2024 10:53 AM CDT) SODIUM S/P/B 135(L) 136 - 145 MMOL/L 11/08/2024 11:35 AM CDT [facility] POTASSIUM S/P/B 4.3 3.5 - 5.1 MMOL/L 11/08/2024 11:35 AM CDT [facility] CHLORIDE S/P/B 99 98 - 107 MMOL/L 11/08/2024 11:35 AM CDT [facility] CO2 20.9(L) 21.0 - 32.0 MMOL/L 11/08/2024 11:35 AM CDT [facility] GLUCOSE 94 70 - 99 MG/DL 11/08/2024 11:35 AM CDT [facility] Comment: FASTING GLUCOSE 100 TO 125 MG/DL IS CONSISTENT WITH IMPAIRED FASTING GLUCOSE. FASTING GLUCOSE >125 MG/DL IS CONSISTENT WITH DIABETES. RANDOM GLUCOSE >200 MG/DL WITH HYPERGLYCEMIC SYMPTOMS IS CONSISTENT WITH DIABETES. PER ADA GUIDELINES BUN 39(H) 6 - 24 MG/DL 11/08/2024 11:35 AM CDT [facility] CREATININE S/P/B 3.52(H) 0.55 - 1.02 MG/DL 11/08/2024 11:35 AM CDT [facility] CALCIUM S/P/B 8.0(L) 8.4 - 10.5 MG/DL 11/08/2024 11:35 AM CDT [facility] BILIRUBIN TOTAL S/P/B 0.4 0.2 - 1.0 MG/DL 11/08/2024 11:35 AM [facility] Comment: THIS ASSAY IS NOT RECOMMENDED FOR PATIENTS UNDERGOING TREATMENT WITH ELTROMBOPAG DUE TO THE POTENTIAL FOR FALSELY ELEVATED RESULTS. ALKALINE PHOSPHATASE S/P/B 88 39 - 100 U/L 11/08/2024 11:35 AM [facility] AST 12(L) 15 - 37 U/L 11/08/2024 11:35 AM [facility] ALT 15 14 - 59 U/L 11/08/2024 11:35 AM [facility] TOTAL PROTEIN S/P/B 5.5(L) 6.4 - 8.2 G/DL 11/08/2024 11:35 AM [facility] ALBUMIN S/P/B 2.0(L) 3.4 - 5.0 G/DL 11/08/2024 11:35 AM [facility] ANION GAP 15.1(H) 5.0 - 15.0 MMOL/L 11/08/2024 11:35 AM [facility] OSMOLALITY (CALC) 289 MOSM/KG 025 11:35 AM [facility] Comment:REFERENCE RANGE NOT ESTABLISHED GFR ESTIMATE 15(L) >89 ML/MIN/1. 73 M2 11/08/2024 11:35 AM [facility] GFR NOTES GFR REFERENCE S: 11/08/2024 11:35 AM [facility] Comment: THE ESTIMATED GFR IS [...] us Solange Moody MD LABORATORY Final Result [facility] [address] [place] [address], * HCG QUANT (SERUM)-CHORIONIC GONADOTROPIN (11/08/2024 10:53 AM CDT) HCG QUANTITATIVE 1 0.0 - 6.0 MIU/ML 11/08/2024 11:35 AM CDT [facility] Comment:NON- FEMALE 0-6 11/08/2024 10:5 3 AM CDT Solange Moody MD LABORATORY Final Result Performing Organization Address City/[facility]/ZIP Co de Phone Number [facility] [address] [place] [address], * (ABNORMAL) CBC W/DIFF AUTOMATED (11/08/2024 10:53 AM CDT) WBC 20.30(H) 4.00 - 10.80 x10'3/uL 11/08/2024 11:05 AM CDT [facility] RBC 3.14(L) 4.10 - 5.40 x10'6/uL 11/08/2024 11:05 AM CDT [facility] HGB 9.8(L) 12.0 - 16.0 G/DL 11/08/2024 11:05 AM CDT [facility] HCT 29.3(L) 36.0 - 47.0 % 11/08/2024 11:05 AM CDT [facility] MCV 93.3 78.0 - 100.0 FL 11/08/2024 11:05 AM CDT [facility] MCH 31.2(H) 27.0 - 31.0 PG 11/08/2024 11:05 AM CDT [facility] MCHC 33.4 33.0 - 36.0 G/DL 11/08/2024 11:05 AM T [facility] RDW 14.4 11.5 - 14.5 % 11/08/2024 11:05 AM T [facility] PLT 293 150 - 350 x10'3/uL 11/08/2024 11:05 AM [facility] MPV 11.3(H) 7.4 - 10.4 FL 11/08/2024 11:05 AM T [facility] CBC COMMENT NORMAL REFERENCE RANGE NOT ESTABLISHED FOR THE PROPORTIONAL LEUKOCYTE DIFFERENTIAL. 11/08/2024 11:05 AM T [facility] NEUTROPHILS % 86.6 % 11/08/2024 11:05 AM T [facility] LYMPHOCYTES % 4.8 % 11/08/2024 11:05 AM [facility] MONOCYTES % 7.5 % 11/08/2024 11:05 AM T [facility] EOSINOPHILS % 0.1 % 11/08/2024 11:05 AM T [facility] BASOPHILS % 0.2 % 11/08/2024 11:05 AM T [facility] IMMATURE GRANS % 0.8 % 11/09/19 11:05 AM T [facility] NRBC % 0.0 % 11/08/2024 11:05 AM [facility] ABS. NEUTROPHILS 17.56(H) 1.60 - 8.30 x10'3/uL 11/08/2024 11:05 AM T [facility] ABS. LYMPHOCYTES 0.98 0.80 - 4.70 x10'3/uL 11/08/2024 11:05 AM T [facility] ABS. MONOCYTES 1.53(H) 0.00 - 1.50 x10'3/uL 11/08/2024 11:05 AM [facility] ABS. EOSINOPHILS 0.02 0.00 - 0.40 x10'3/uL 11/08/2024 11:05 AM T [facility] ABS. BASOPHILS 0.04 0.00 - 0.20 x10'3/uL 11/08/2024 11:05 AM CDT [facility] ABS. IMMATURE GRANULOCYTES 0.17(H) 0.00 - 0.03 x10'3/uL 11/08/2024 11:05 AM CDT [facility] ABS. NUCLEATED RBC'S 0.00 0.00 - 0.01 x10'3/uL 11/08/2024 11:05 AM CDT [facility] 11/08/2024 10:5 3 AM CDT us Solange Moody MD LABORATORY Final Result Performing Organization Address [facility]/ZIP Co de Phone Number [facility] [address] [place] [address], * (ABNORMAL) MAGNESIUM (11/08/2024 10:53 AM CDT) MAGNESIUM 1.2(L) 1.8 - 2.4 MG/DL 11/08/2024 11:42 AM CDT [facility] 11/08/2024 10:5 3 AM CDT us Solange Moody MD LABORATORY Final Result Performing Organization Address [facility] Co de Phone Number [facility] [address] [place] [address], * LIPASE (11/08/2024 10:53 AM CDT) LIPASE 17 16 - 77 UNITS/L 11/08/2024 11:42 AM CDT [facility] 11/08/2024 10:5 3 AM CDT us Solange Moody MD LABORATORY Final Result Performing Organization Address [facility] Co de Phone Number [facility] [address] [place] [address], * ETHANOL (11/08/2024 10:53 AM CDT) ALCOHOL S/P/B <0.003 <0.003 G/DL 11/08/2024 11:35 AM CDT [facility] 11/08/2024 10:5 3 AM CDT us Solange Moody MD LABORATORY Final Result [facility] [address] [place] [address], from Last 3 Months Additional Health Concerns Infection Onset Date Last Indicated C. difficile 11/08/2024 11/08/2024 Insurance [facility] Advance Directives * Full Code (Latest Code Status on File) Date Activated Date Inactivated Comments 12/05/2024 1:34 PM Care Teams Proposal Editor Relationship Specialty Start Date End Date Milan Heredia DO [address] [place] [address] PCP - General FAMILY PRACTICE 12/01/24
[2024-12-26 14:38] LABS: Basophils Absolute Auto 0.03 K/mm3 (0.00-0.10); Basophils Percent Auto 0.5 % (0.0-1.0); Eosinophils Absolute Auto 0.53 K/mm3 (0.02-0.50); Eosinophils Percent Auto 8.3 % (1.0-6.0); Hematocrit 31.8 % (35.0-49.0); Hemoglobin 10.4 g/dL (12.0-15.0); Immature Granulocyte Absolute 0.02 K/mm3 (0.00-0.00); Immature Granulocyte Percent A 0.3 % (0.0-0.0); Lymphocytes Absolute Auto 1.62 K/mm3 (1.10-4.50); Lymphocytes Percent Auto 25.2 % (18.0-42.0); Mean Corpuscular HGB Conc 32.7 g/dL (32-36); Mean Corpuscular Hemoglobin 29.5 pg (27.0-31.0); Mean Corpuscular Volume 90.3 fL (78.0-102.0); Monocytes Absolute Auto 0.57 K/mm3 (0.10-0.90); Monocytes Percent Auto 8.9 % (2.0-11.0); Neutrophils Absolute Auto 3.65 K/mm3 (1.70-7.20); Neutrophils Percent Auto 56.8 % (50.0-70.0); Platelet Count Result 258 K/mm3 (150-420); Red Blood Count 3.52 M/mm3 (4.20-5.40); Red Cell Distribution Width 15.1 % (11.6-14.4); White Blood Count 6.4 K/mm3 (4.8-10.8)
[2024-12-26 15:00] LABS: Alanine Aminotransferase 14 U/L (6-35); Albumin Level 4.2 g/dL (3.5-5.1); Alkaline Phosphatase 76 U/L (38-126); Anion Gap 4 mmol/L (4-12); Aspartate Amino Transferase 20 U/L (14-36); Bilirubin,Total 0.3 mg/dL (0.2-1.3); Blood Urea Nitrogen 24 mg/dL (7-17); Calcium 9.4 mg/dL (8.4-10.2); Carbon Dioxide 25 mmol/L (22-30); Chloride 108 mmol/L (98-107); Estimated Glomerular Filt Rate 48; Glucose 99 mg/dL (65-110); Iron 58 ug/dL (37-170); Magnesium 1.8 mg/dL (1.6-2.3); Osmolality Calculated 288 mOsm/kg (285-295); Potassium 3.9 mmol/L (3.4-5.0); Sodium 137 mmol/L (137-145); Total Protein 7.2 g/dL (6.3-8.2)
[2024-12-26 15:08] LABS: NT Pro B Type Natriuretic Pept 952 pg/mL (19.9-100)
[2024-12-27 20:47] LABS: Vitamin D 25 Hydroxy 19 ng/mL (30-100)
== END 2024-12-26 14:18 | disposition home or self-care (01) ==
LOC: CHSLAB 14:18
PROVIDERS: PCP Nurse Practitioner Family; Visit Provider Nurse Practitioner Family
DX: D64.9 Anemia, unspecified (principal); E83.42 Hypomagnesemia; I50.9 Heart failure, unspecified; I10 Essential (primary) hypertension; N17.9 Acute kidney failure, unspecified; Z79.899 Other long term (current) drug therapy
CPT/HCPCS: 36415; 80053; 82306; 83540; 83735; 83880; 85025

== ENCOUNTER 2025-01-09 15:45 | Outpatient (CLI) | payer OTHER, SELFPAY ==
--- OUTSIDE RECORDS SUMMARY | 2025-01-09 15:48 | XMS_ITS | Clinical Summary ---
Author Organization [facility] Address [address] [place] [address] Phone Care Team Providers Care Test Engineer Nuclear Equipment Name Role Phone Joellen Shepherd RESPIRATORY COORDINATOR, ORDER PLANNER Primary Care Provi jameel Neo Mcfadden RESPIRATORY COORDINATOR, ORDER PLANNER Unavailable Allergies Active Allergy Reactions Criticality Noted Date [...] Encounters Date Type Department Care Team Description 12/29/2024 Telephone [facility] [place] [phone] Neo Mcfadden APRN, JAMAL 12/29/2024 Telephone [facility] [place] [address] Neo Mcfadden APRN, JAMAL 12/26/2024 10:45 AM CDT Office Visit [facility] [place] [address] Neo Mcfadden APRN, JAMAL Urinary retention (Primary Dx) Discharge Disposition: Discharged to home or Selfcare 12/26/2024 Travel 12/06/2024 Telephone [facility] [place] [phone] Neo Mcfadden, RESPIRATORY COORDINATOR, ORDER PLANNER 12/05/2024 Home Care Visit [address] [address] Bettye Whitaker, RN - MERVAT TRANSFER W/DC 11/21/2024 Home Care Visit [address] [address] Elham Hitchcock, OT TELEPHONE ENCOUNTER 11/21/2024 Home Care Visit [address] [address] Bettye Whitaker, RN TELEPHONE ENCOUNTER 11/16/2024 1:30 PM CDT Home Care Visit [address] [address] Keri Lopez, FILLER OPERATOR FILLER OPERATOR - HOME VISIT 11/16/2024 Home Care Visit [address] [address] Meg Cassidy, PT CASE COMMUNICATION 11/15/2024 2:30 PM CDT Home Care Visit [address] [address] Bettye Whitaker, RN SN Ruben CROWELL START OF CARE 11/15/2024 Plan of Care Documentation [address] [address] 11/14/2024 7:08 AM CDT - 11/14/2024 11:59 AM CDT [facility] [address] [place] [address] Andrei Yao, Hypertension Discharge Disposition: Discharged to home or Selfcare 11/14/2024 Travel 11/08/2024 8:15 PM CDT - 11/12/2024 12:26 PM CDT [facility] [address] [place] [address] Sanjay Reed MD Sepsis (HCC) Discharge Disposition: Home Health Care [facility] 11/08/2024 Travel from Last 3 Months Family [...] a day. last drink 5 weeks ago [facility] Utilities Answer Date Recorded In the past 12 months has mobli, gas, oil, or water [employer] threatened to shut off services in your home? Patient declined 11/08/2024 Social Connection and Isolation Panel [NHANES] A nswer Date Recorded In a typical week, how many times do you talk on the phone with family, friends, or neighbors? Patient declined 11/08/2024 How often do you get togethe r with friends or relatives? Patient declined 11/08/2024 How often do you attend judaism or sabianism serv ices? Patient declined 11/08/2024 Do you belong to any clubs o r organizations such as judaism groups, unions, fraternal or athletic groups, or [...] medical care, and heating? Patient declined 11/08/2024 [facility] [place] of Occupat ional Health - Occupational Stress [...] time in the past 12 m [facility], were you homeless or living in a [...] 10:48 AM CDT Height 165.1 cm (5' 5) 12/26/2024 10:48 AM CDT Body Mass Index [...] ABNORMAL RESULTS (11/14/2024 9:53 AM CDT) Pathologist [facility] SPECIFIC GRAVITY 1.010 1.003 - 1.030 11/14/2024 10:51 AM CDT [facility] URINE PH 7.0 5.0 - 9.0 11/14/2024 10:51 AM CDT [facility] WBC ESTERASE 25 /ul(A) Negative 11/14/2024 10:51 AM CDT [facility] NITRITE Negative Negative 11/14/2024 10:51 AM CDT [facility] PROTEIN, RANDOM URINE 100 mg/dL(A) Negative 11/14/2024 10:51 AM CDT [facility] URINE GLUCOSE, QUAL Negative Negative 11/14/2024 10:51 AM CDT [facility] URINE KETONES Negative Negative 11/14/2024 10:51 AM CDT [facility] UROBILINOGEN Normal Normal mg/dL 11/14/2024 10:51 AM CDT [facility] URINE BLOOD 50 /uL(A) Negative billy/ul 11/14/2024 10:51 AM CDT [facility] URINALYSIS COLOR Yellow 11/15/19 10:51 AM CDT [facility] URINALYSIS CLARITY Clear 11/14/2024 10:51 AM CDT [facility] WBC (Urine) 0-5 Negative, 0-5 /hpf 11/14/2024 10:51 AM CDT [facility] URINE RBC'S 11-20(A) Negative, 0-2 /hpf 11/14/2024 10:51 AM CDT [facility] EPITHELIAL CELLS Small amount /lpf 2024 10:51 AM CDT [facility] BACTERIA, URINE Few(A) Negative /hpf 11/14/2024 10:51 AM CDT [facility] Urine (Indwelling Catheter) Non-Phlebotomy Collection / Unknown 11/14/2024 9:53 AM CDT 11/14/2024 10:27 AM CDT us Andrei Yao DO URINE ORDERABLES Final Result [facility] [address] [place] [address] * EKG 12 LEAD (11/14/2024 8:07 AM CDT) Ventricular Rate 99 BPM EXTERNAL EKG Atrial Rate 99 BPM EXTERNAL EKG P-R Interval 124 ms EXTERNAL EKG QRS Duration 92 ms EXTERNAL EKG Q-T Duration 376 ms EXTERNAL EKG QTC CALCULATION 482 ms EXTERNAL EKG P Hawkins 68 degrees EXTERNAL EKG R Hawkins 72 degrees EXTERNAL EKG T Hawkins 72 degrees EXTERNAL EKG 11/14/2024 8:07 AM CDT Impressions EXTERNAL EKG - 11/15/2024 4:45 PM CDT Normal sinus rhythm Possible Left atrial enlargement QTcB >= 480 msec Abnormal ECG No previous ECGs available Confirmed by MADELINE SANDOVAL ([id number]) on 11/15/2024 4:45:02 PM Narrative Procedure Note Madeline Sandoval MD - 11/15/2024 IMPRESSION: Normal sinus rhythm Possible Left atrial enlargement QTcB >= 480 msec Abnormal ECG No previous ECGs available Confirmed by MADELINE SANDOVAL ([id number]) on 11/15/2024 4:45:02 PM us Andrei Yao DO IMG ECG ORDERABLES Belia l Result Performing Organization Address City/[facility] Co de Phone Number EXTERNAL EKG * TROPONIN I, HIGH SENSITIVITY (HSTRP) (11/14/2024 7:53 AM CDT) Pathologist [facility] TROPONIN I, HIGH SENSITIVITY- ESPOSITO 9 <=14 ng/L 11/14/2024 9:12 AM CDT [facility] Comment: High-sensitivity troponin I results are reported in ng/L making the result appear to be 1,000 times higher than the contemporary troponin I value which is reported in ng/ml. Results from [place]. Blood Venipuncture / Unknown 11/14/2024 7:53 AM CDT 11/14/2024 8:40 AM CDT us Andrei Yao DO CHEMISTRY ORDERABLES Fi nal Result Performing Organization Address City/[facility]/ZIP Co de Phone Number [facility] [address] [place] [address] * (ABNORMAL) Manual Differential (11/14/2024 7:53 AM CDT) BANDS % 2.0 % 11/14/2024 9:22 AM CDT [facility] NEUTROPHILS % 73.0 47.0 - 73.0 % 11/14/2024 9:22 AM CDT [facility] LYMPHOCYTES % 19.0 18.0 - 42.0 % 11/14/2024 9:22 AM CDT [facility] MONOCYTES % 3.0(L) 4.0 - 12.0 % 11/14/2024 9:22 AM CDT [facility] EOSINOPHILS % 3.0 0.0 - 5.0 % 11/14/2024 9:22 AM CDT [facility] NEUTROPHILS ABSOLUTE 7.62 1.60 - 7.70 10(3)/mcL 11/14/2024 9:22 AM CDT [facility] LYMPHOCYTES ABSOLUTE 1.93 1.30 - 3.20 10(3)/mcL 11/14/2024 9:22 AM CDT [facility] MONOCYTES ABSOLUTE 0.30 0.20 - 1.00 10(3)/mcL 11/14/2024 9:22 AM CDT [facility] EOSINOPHILS ABSOLUTE 0.30 0.00 - 0.40 10(3)/mcL 11/14/2024 9:22 AM CDT [facility] REACTIVE LYMPHOCYTES 1 11/14/2024 9:22 AM CDT [facility] WBC MORPH STATUS Normal 11/15/19 9:22 AM CDT [facility] RBC MORPH STATUS Normal 11/15/19 9:22 AM CDT [facility] PLATELET STATUS Normal 9:22 AM CDT [facility] Blood Venipuncture / Unknown 11/14/2024 7:53 AM CDT 11/14/2024 8:40 AM CDT us Andrei Neal Maximilian DO HEMATOLOGY ORDERABLES F inal Result [facility] [address] [place] [address] * (ABNORMAL) CBC with Auto Differential (11/14/2024 7:53 AM CDT) Only the most recent of6 resultswithin the time period is included. WBC 10.16 4.00 - 12.00 10(3)/mcL 11/14/2024 9:22 AM CDT [facility] RBC 3.64(L) 3.80 - 5.30 10(6)/mcL 11/14/2024 9:22 AM CDT [facility] HEMOGLOBIN (HGB) 10.8(L) 12.0 - 15.8 g/dL 11/14/2024 9:22 AM CDT [facility] HEMATOCRIT (HCT) 32.9(L) 36.0 - 47.0 % 11/14/2024 9:22 AM CDT [facility] MCV 90.4 82.0 - 96.0 fL 11/14/2024 9:22 AM CDT [facility] MCH 29.7 26.0 - 34.0 pg 11/14/2024 9:22 AM CDT [facility] MCHC 32.8 31.0 - 36.0 g/dL 11/14/2024 9:22 AM CDT [facility] PLATELET COUNT 578(H) 140 - 440 10(3)/mcL 11/14/2024 9:22 AM CDT [facility] RDW 13.3 11.8 - 15.5 % 11/14/2024 9:22 AM CDT [facility] MPV 10.6 9.7 - 12.4 fL 11/14/2024 9:22 AM CDT [facility] NRBC PER 100 WBC 0 11/14/2024 9:22 AM CDT [facility] RESULTS ARE CONSISTENT WITH PERIPHERAL SMEAR REVIEW Yes 11/14/2024 9:22 AM CDT [facility] RBC MORPHOLOGY CONSISTENT WITH INDICES Yes 11/14/2024 9:22 AM CDT [facility] Blood Venipuncture / Unknown 11/14/2024 7:53 AM CDT 11/14/2024 8:40 AM CDT us Andrei Yao DO HEMATOLOGY ORDERABLES F inal Result [facility] [address] [place] [address] * CMP (Comprehensive Metabolic Panel) (11/14/2024 7:53 AM CDT) Only the most recent of2 resultswithin the time period is included. SODIUM 141 136 - 145 mmol/L 11/14/2024 9:07 AM CDT [facility] POTASSIUM 3.5 3.5 - 5.1 mmol/L 11/14/2024 9:07 AM CDT [facility] CHLORIDE 106 98 - 107 mmol/L 11/14/2024 9:07 AM CDT [facility] CO2, VENOUS 25 22 - 30 mmol/L 11/14/2024 9:07 AM CDT [facility] ANION GAP 13.5 <18.0 mmol/L 11/14/2024 9:07 AM CDT [facility] GLUCOSE 97 70 - 99 mg/dL 11/14/2024 9:07 AM CDT [facility] BUN 17 5 - 18 mg/dL 11/14/2024 9:07 AM CDT [facility] CREATININE, BLOOD 0.85 0.60 - 1.00 mg/dL 11/14/2024 9:07 AM CDT [facility] BUN/CREATININE RATIO 20 12 - 20 ratio 11/14/2024 9:07 AM CDT [facility] TOTAL PROTEIN 7.5 6.0 - 8.0 g/dL 11/14/2024 9:07 AM CDT [facility] ALBUMIN 3.7 3.5 - 5.0 g/dL 11/14/2024 9:07 AM CDT [facility] A/G RATIO 1.0 1.0 - 2.2 11/14/2024 9:07 AM CDT [facility] CALCIUM 9.0 8.7 - 10.5 mg/dL 11/14/2024 9:07 AM CDT [facility] T BILI 0.2 0.2 - 1.2 mg/dL 11/14/2024 9:07 AM CDT [facility] SGOT (AST) 23 <43 U/L 11/14/2024 9:07 AM CDT [facility] SGPT (ALT) 18 <56 U/L 11/14/2024 9:07 AM CDT [facility] ALKALINE PHOSPHATASE 83 40 - 150 U/L 11/14/2024 9:07 AM CDT [facility] GFR, ESTIMATED >60 >=60 11/14/2024 9:07 AM CDT [facility] Comment: Creatinine Clearance is the preferred criteria for selecting drug dose adjustments in renally impaired patients. The GFR is provided as additional pertinent clinical information. GFR is reported in mL/min/1.73 sq m. Calculation based on the Chronic Kidney Disease Epidemiology Collaboration (CKD- EPI) equation refit without adjustment for race. GFR, EST. >60 >=60 025 9:07 AM CDT [facility] GFR, EST. NONAFRICAN >60 >=60 11/14/2024 9:07 AM CDT [facility] Blood Venipuncture / Unknown 11/14/2024 7:53 AM CDT 11/14/2024 8:40 AM CDT us Andrei Yao DO CHEMISTRY ORDERABLES Fi nal Result [facility] [address] [place] [address] * EKG SCAN (11/14/2024 12:00 AM CDT) 11/14/2024 us Provider Scan IMG ECG ORDERABLES Final Result RESULTING AGENCY * (ABNORMAL) BMP with Ca, Total (11/12/2024 4:23 AM CDT) Only the most recent of3 resultswithin the time period is included. SODIUM 141 136 - 145 mmol/L 11/12/2024 5:58 AM CDT [facility] POTASSIUM 3.6 3.5 - 5.1 mmol/L 11/12/2024 5:58 AM CDT [facility] CHLORIDE 109(H) 98 - 107 mmol/L 11/12/2024 5:58 AM CDT [facility] CO2, VENOUS 23 22 - 30 mmol/L 11/12/2024 5:58 AM CDT [facility] ANION GAP 12.6 <18.0 mmol/L 11/12/2024 5:58 AM CDT [facility] GLUCOSE 77 70 - 99 mg/dL 11/12/2024 5:58 AM CDT [facility] BUN 12 5 - 18 mg/dL 11/12/2024 5:58 AM CDT [facility] CREATININE, BLOOD 0.95 0.60 - 1.00 mg/dL 11/12/2024 5:58 AM CDT [facility] BUN/CREATININE RATIO 13 12 - 20 ratio 11/12/2024 5:58 AM CDT [facility] CALCIUM 8.4(L) 8.7 - 10.5 mg/dL 11/12/2024 5:58 AM CDT [facility] GFR, ESTIMATED >60 >=60 11/12/2024 5:58 AM CDT [facility] Comment: Creatinine Clearance is the preferred criteria for selecting drug dose adjustments in renally impaired patients. The GFR is provided as additional pertinent clinical information. GFR is reported in mL/min/1.73 sq m. Calculation based on the Chronic Kidney Disease Epidemiology Collaboration (CKD- EPI) equation refit without adjustment for race. GFR, EST. >60 >=60 025 5:58 AM CDT [facility] GFR, EST. NONAFRICAN >60 >=60 11/12/2024 5:58 AM CDT [facility] Blood Venipuncture / Unknown 11/12/2024 4:23 AM CDT 11/12/2024 5:34 AM CDT us Amy Villeda APRN, CNP CHEMISTRY ORDERABLES Final Result Performing Organization Address City/[facility]/ZIP Co de Phone Number [facility] [place] [address] * Culture, Blood (11/11/2024 5:38 PM CDT) Only the most recent of2 resultswithin the time period is included. CULTURE RESULTS NO GROWTH WITHIN 5 DAYS, FINAL RESULT 11/16/2024 6:01 PM CDT [facility] Culture (Peripheral Vein) Venipuncture / Unknown 11/11/2024 5:38 PM CDT 11/11/2024 5:40 PM CDT us Sanjay Reed MD MICROBIOLOGY - GENERAL O RDERABLES Final Result [facility] [address] [place] [address], [place] * RHYTHM STRIP (2024 12:00 AM [...] mm. No pericholecystic fluid. No positive sonographic [place] sign reported. BILIARY: There is no intrahepatic or extrahepatic biliary ductal dilatation. Common bile duct measures 0.2 cm in diameter. OTHER: No other significant findings. THIS IS AN ELECTRONICALLY VERIFIED FINAL REPORT 11/09/2024 1:54 PM - Electronically signed by Sparkle Leblanc M.D. FT: FT Report ID: [id number] Reading Location: [id number] Procedure Note Sparkle Zelaya MD - 11/09/2024 [...] mm. No pericholecystic fluid. No positive sonographic [place] sign reported. BILIARY: There is no intrahepatic or extrahepatic biliary ductal dilatation. Common bile duct measures 0.2 cm in diameter. OTHER: No other significant findings. THIS IS AN ELECTRONICALLY VERIFIED FINAL REPORT 11/09/2024 1:54 PM - Electronically signed by Sparkle Leblanc M.D. FT: FT Report ID: [id number] Reading Location: [place] [address] IMPRESSION: Biliary sludge and borderline gallbladder wall thickening. No pericholecystic fluid or positive sonographic Fernando's sign. Findings are equivocal for acute cholecystitis. If there is persistent clinical concern, HIDA scan may be performed. Mike Parra MD [facility] US ORDERABLES Fin al Result * (ABNORMAL) Renal Function Panel (11/09/2024 4:23 AM CDT) SODIUM 138 136 - 145 mmol/L 11/09/2024 7:21 AM CDT [facility] POTASSIUM 3.3(L) 3.5 - 5.1 mmol/L 11/09/2024 7:21 AM CDT [facility] CHLORIDE 107 98 - 107 mmol/L 11/09/2024 7:21 AM CDT [facility] CO2, VENOUS 20(L) 22 - 30 mmol/L 11/09/2024 7:21 AM CDT [facility] ANION GAP 14.3 <18.0 mmol/L 11/09/2024 7:21 AM CDT [facility] GLUCOSE 85 70 - 99 mg/dL 11/09/2024 7:21 AM CDT [facility] BUN 37(H) 5 - 18 mg/dL 11/09/2024 7:21 AM CDT [facility] CREATININE, BLOOD 2.43(H) 0.60 - 1.00 mg/dL 11/09/2024 7:21 AM CDT [facility] BUN/CREATININE RATIO 15 12 - 20 ratio 11/09/2024 7:21 AM CDT [facility] ALBUMIN 3.0(L) 3.5 - 5.0 g/dL 11/09/2024 7:21 AM CDT [facility] CALCIUM 8.3(L) 8.7 - 10.5 mg/dL 11/09/2024 7:21 AM CDT [facility] PHOSPHORUS 4.4 2.5 - 4.5 mg/dL 11/09/2024 7:21 AM CDT [facility] GFR, ESTIMATED 24(L) >=60 11/09/2024 7:21 AM CDT [facility] Comment: Creatinine Clearance is the preferred criteria for selecting drug dose adjustments in renally impaired patients. The GFR is provided as additional pertinent clinical information. GFR is reported in mL/min/1.73 sq m. Calculation based on the Chronic Kidney Disease Epidemiology Collaboration (CKD- EPI) equation refit without adjustment for race. GFR, EST. 26(L) >=60 025 7:21 AM CDT [facility] GFR, EST. NONAFRICAN 21(L) >=60 11/09/2024 7:21 AM CDT [facility] Blood Venipuncture / Unknown 11/09/2024 4:23 AM CDT 11/09/2024 5:57 AM CDT us Gia Walton APRN, ORDER PLANNER CHEMISTRY ORDERABLES Belia back Result [facility] [address] [place] [address] * Magnesium (Mg) (11/09/2024 4:23 AM CDT) Only the most recent of2 resultswithin the time period is included. MAGNESIUM 2.6 1.6 - 2.6 mg/dL 11/09/2024 7:21 AM CDT [facility] Blood Venipuncture / Unknown 11/09/2024 4:23 AM CDT 11/09/2024 5:57 AM CDT us Gia Walton RESPIRATORY COORDINATOR, JAMAL CHEMISTRY ORDERABLES Belia l Result [facility] [address] [place] [address] * CT RENAL STONE STUDY (ABDOMEN AND [...] being able to urinate for a long while. Pt septic possible urinary source and possible [...] by Liv Lauren M.D. SN: Report ID: [id number] Reading Location: [id number] Procedure Note Liv Lauren MD - 11/09/2024 EXAM DESCRIPTION: CT RENAL STONE STUDY (ABDOMEN AND PELVIS W/O CONTRAST) REASON FOR STUDY: c/o LLQ abdominal pain, N/V today. Pt reports not being able to urinate for a long while. Pt septic possible urinary source and possible [...] by Liv Lauren M.D. SN: Report ID: [id number] Reading Location: [id number] IMPRESSION: No acute intra-abdominal or pelvic abnormality seen. Daniel catheter and rectal tube in place. Tiny fat containing periumbilical hernia. Gia Walton APRN, CNP IMG CT ORDERABLES Final R esult * CONSULT - OTHER (11/09/2024 12:00 AM CDT) Only the most recent of4 resultswithin the time period is included. 11/09/2024 us Provider Scan GENERIC SCAN ORDERS CONSULT Belia l Result SCAN * (ABNORMAL) C. DIFF BY PCR (11/08/2024 11:25 PM CDT) C DIFF TOXIN DNA BY PCR Positive(A ) Negative, Invalid 11/09/2024 1:37 AM CDT [facility] Comment:Please see Reflex C. diff Quik Chek Complete order results Other STOOL SPECIMEN / Unknown Non-Phlebotomy Collection / Unknown 11/08/2024 11:25 PM CDT 11/08/2024 11:49 PM CDT us Gia Walton APRN, CNP MICROBIOLOGY - GENERAL OR DERABLES Final Result [facility] [address] [place] [address] * REFLEX C DIFF QUIK CHEK COMPLETE (11/08/2024 11:25 PM CDT) TOXIN A/B Negative Negative, INVALID, Not Applicable 11/09/2024 1:37 AM CDT [facility] Comment:These results are mullen [...] OR DERABLES Final Result Performing Organization Address City/[facility]/ZIP Co de Phone Number [facility] [address] [place] [address] * Culture, Stool (11/08/2024 11:25 PM CDT) [facility] CULTURE RESULTS NEGATIVE FOR CAMPYLOBACTER ANTIGEN 2024 3:41 PM CDT [facility] CULTURE RESULTS SHIGA TOXIN 1 AND SHIGA TOXIN 2 NOT DETECTED 2024 3:41 PM CDT [facility] CULTURE RESULTS Heavy Mixed genesis 2024 3:41 PM CDT [facility] Culture STOOL SPECIMEN / Unknown Non-Phlebotomy Collection / Unknown 11/08/2024 11:25 PM CDT 11/08/2024 11:49 PM CDT Narrative [facility] - 2024 3:41 PM CDT Unless stated above as an isolate, no Salmonella, Shigella, E Coli O157, Aeromonas, or Pleisiomonas species isolated Gia Walton APRN, JAMAL MICROBIOLOGY - GENERAL OR DERABLES Final Result Performing Organization Address [facility] Co de Phone Number [facility] [address] [place] [address], [place] * Ur Sodium (Na) Random (11/08/2024 11:24 PM CDT) SODIUM, RANDOM URINE 42 mmol/L 11/09/2024 2:45 PM CDT [facility] Comment:No reference range h as been established. Consider Clinical Correlation. Urine Non-Phlebotomy Collection / Unknown 11/08/2024 11:24 PM CDT 11/08/2024 11:48 PM CDT Gia Walton APRN, CNP URINE ORDERABLES Final Re sult Performing Organization Address [facility] Co de Phone Number [facility] [address] [place] [address], [place] * Ur Potassium (K) Random (11/08/2024 11:24 PM CDT) UR POTASSIUM, RANDOM 21 mmol/L 11/09/2024 2:45 PM CDT [facility] Comment:No reference range h as been established. Consider Clinical Correlation. Urine Non-Phlebotomy Collection / Unknown 11/08/2024 11:24 PM CDT 11/08/2024 11:48 PM CDT Gia Walton APRN, CNP URINE ORDERABLES Final Re sult Performing Organization Address [facility] Co de Phone Number [facility] [address] [place] [address], [place] * Ur Osmolality (11/08/2024 11:24 PM CDT) OSMOLALITY, URINE 271 50 - 1,400 mOsm/kg 11/09/2024 3:27 PM CDT [facility] Urine Non-Phlebotomy Collection / Unknown 11/08/2024 11:24 PM CDT 11/08/2024 11:48 PM CDT us Gia Walton APRN, JAMAL URINE ORDERABLES Final Re sult Performing Organization Address [facility] Co de Phone Number [facility] [address] [place] [address], [place] * Ur Chloride (Cl) Random (11/08/2024 11:24 PM CDT) CHLORIDE, RANDOM URINE 29 mmol/L 11/09/2024 2:45 PM CDT [facility] Comment:No reference range h as been established. Consider Clinical Correlation. Urine Non-Phlebotomy Collection / Unknown 11/08/2024 11:24 PM CDT 11/08/2024 11:48 PM CDT us Gia Walton APRN, JAMAL URINE ORDERABLES Final Re sult Performing Organization Address [facility] de Phone Number [facility] [address] [place] [address], [place] * (ABNORMAL) IRON,TRANSFERN,CALC.TIBC,%SAT (11/08/2024 10:05 PM CDT) IRON 9(L) 25 - 156 mcg/dL 11/08/2024 11:59 PM CDT [facility] TRANSFERRIN 125(L) 180 - 382 mg/dL 11/08/2024 11:59 PM CDT [facility] TIBC, CALCULATED 156(L) 265 - 497 mcg/dL 11/08/2024 11:59 PM CDT [facility] % SATURATION * 6(L) 15 - 62 % 11/08/2024 11:59 PM CDT [facility] Blood Venipuncture / Unknown 11/08/2024 10:05 PM CDT 11/08/2024 10:14 PM CDT us Gia Walton APRN, JAMAL CHEMISTRY ORDERABLES Belia l Result Performing Organization Address [facility]/ZIP Co de Phone Number [facility] [place] [address] * Vitamin B12 (11/08/2024 10:05 PM CDT) VITAMIN B12 238 213 - 816 pg/mL 11/09/2024 12:29 AM CDT [facility] Blood Venipuncture / Unknown 11/08/2024 10:05 PM CDT 11/08/2024 10:14 PM CDT us Gia Walton APRN, ORDER PLANNER CHEMISTRY ORDERABLES Belia l Result Performing Organization Address City/[facility]/ZIP Co de Phone Number [facility] [place] [address] * Osmolality Serum (11/08/2024 10:05 PM CDT) OSMOLALITY 295 275 - 295 mOsm/kg 11/09/2024 2:51 PM CDT [facility] Blood Venipuncture / Unknown 11/08/2024 10:05 PM CDT 11/08/2024 10:14 PM CDT Narrative [facility] - 11/09/2024 2:51 PM CDT Result is an averaged value us Gia Walton APRN, JAMAL CHEMISTRY ORDERABLES Belia l Result [facility] [address] [place] [address], [place] * Lactic Acid (Lactate) (11/08/2024 10:05 PM CDT) LACTIC ACID 0.9 0.7 - 2.0 mmol/L 11/08/2024 11:18 PM CDT [facility] Blood Venipuncture / Unknown 11/08/2024 10:05 PM CDT 11/08/2024 10:13 PM CDT us Gia Walton APRN, ORDER PLANNER CHEMISTRY ORDERABLES Belia l Result Performing Organization Address City/[facility]/ZIP Co de Phone Number [facility] [address] [place] [address] * FOLIC ACID (FOLATE) (11/08/2024 10:05 PM CDT) FOLATE 11.1 7.0 - 31.4 ng/mL 11/09/2024 12:29 AM CDT [facility] Blood Venipuncture / Unknown 11/08/2024 10:05 PM CDT 11/08/2024 10:14 PM CDT us Gia Walton APRN, ORDER PLANNER CHEMISTRY ORDERABLES Belia l Result Performing Organization Address [facility] Co de Phone Number [facility] [address] [place] [address] * (ABNORMAL) Ferritin (11/08/2024 10:05 PM CDT) FERRITIN 815(H) 5 - 204 ng/mL 11/09/2024 12:29 AM CDT [facility] Blood Venipuncture / Unknown 11/08/2024 10:05 PM CDT 11/08/2024 10:14 PM CDT us Gia Walton APRN, JAMAL CHEMISTRY ORDERABLES Belai l Result Performing Organization Address [facility]/ZIP Co de Phone Number [facility] [place] [address] * US - ABDOMEN/PELVIS (10/21/2024 12:00 AM CDT) Only the most recent of3 resultswithin the time period is included. 10/21/2024 us Provider Scan IMG US ORDERABLES Final Result Performing Organization Address City/[facility]/ZIP Co de Phone Number SCAN * CT - ABDOMEN/PELVIS (10/20/2024 12:00 AM CDT) 10/20/2024 us Provider Scan IMG CT ORDERABLES Final Result SCAN * CARDIOLOGY CONSULT (10/19/2024 12:00 AM CDT) Only the most recent of2 resultswithin the time period is included. 10/19/2024 us Provider Scan GENERIC SCAN ORDERS CONSULT Belia l Result Performing Organization Address City/State/[facility] Co de Phone Number SCAN * FAMILY MEDICINE CONSULT (10/18/2024 12:00 AM CDT) 10/18/2024 us Provider Scan GENERIC SCAN ORDERS CONSULT Belia l Result SCAN from Last 3 Months Additional Health Concerns Infection Onset Date Last Indicated C. 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 PRE-ARREST: Use entire range of life support measures to stabilize the patient. Care Teams Test Engineer Nuclear Equipment Relationship Specialty Start Date End Date Joellen Shepherd APRN, ORDER PLANNER [address] [place] [address] PCP - General Advanced Practice Nurse 11/09/24 Neo Mcfadden APRN, ORDER PLANNER [address] [place] [address] Nurse Practitioner Advanced Practice Nurse 12/22/24
[2025-01-09 16:00] LABS: Basophils Absolute Auto 0.04 K/mm3 (0.00-0.10); Basophils Percent Auto 0.5 % (0.0-1.0); Eosinophils Absolute Auto 0.29 K/mm3 (0.02-0.50); Eosinophils Percent Auto 3.5 % (1.0-6.0); Hematocrit 36.1 % (35.0-49.0); Hemoglobin 11.6 g/dL (12.0-15.0); Immature Granulocyte Absolute 0.02 K/mm3 (0.00-0.00); Immature Granulocyte Percent A 0.2 % (0.0-0.0); Lymphocytes Absolute Auto 1.58 K/mm3 (1.10-4.50); Lymphocytes Percent Auto 19.3 % (18.0-42.0); Mean Corpuscular HGB Conc 32.1 g/dL (32-36); Mean Corpuscular Hemoglobin 29.8 pg (27.0-31.0); Mean Corpuscular Volume 92.8 fL (78.0-102.0); Mean Platelet Volume 9.9 fl (9.2-11.8); Monocytes Absolute Auto 0.67 K/mm3 (0.10-0.90); Monocytes Percent Auto 8.2 % (2.0-11.0); Neutrophils Percent Auto 68.3 % (50.0-70.0); Platelet Count Result 292 K/mm3 (150-420); Red Blood Count 3.89 M/mm3 (4.20-5.40); Red Cell Distribution Width 14.6 % (11.6-14.4); White Blood Count 8.2 K/mm3 (4.8-10.8)
[2025-01-09 16:23] LABS: Alanine Aminotransferase 18 U/L (6-35); Alkaline Phosphatase 75 U/L (38-126); Anion Gap 3 mmol/L (4-12); Aspartate Amino Transferase 23 U/L (14-36); Bilirubin,Total 0.5 mg/dL (0.2-1.3); Blood Urea Nitrogen 20 mg/dL (7-17); Calcium 8.8 mg/dL (8.4-10.2); Carbon Dioxide 26 mmol/L (22-30); Chloride 110 mmol/L (98-107); Estimated Glomerular Filt Rate 48; Glucose 103 mg/dL (65-110); Iron 68 ug/dL (37-170); Magnesium 1.9 mg/dL (1.6-2.3); Osmolality Calculated 290 mOsm/kg (285-295); Potassium 4.1 mmol/L (3.4-5.0); Sodium 139 mmol/L (137-145); Total Protein 6.9 g/dL (6.3-8.2)
[2025-01-09 21:57] LABS: NT Pro B Type Natriuretic Pept 2870 pg/mL (19.9-100)
[2025-01-10 01:07] LABS: Folic Acid > 20.0 ng/mL (2.76->20)
== END 2025-01-09 15:46 | disposition home or self-care (01) ==
LOC: CHSLAB 15:46
PROVIDERS: PCP Nurse Practitioner Family; Visit Provider Nurse Practitioner Family
DX: F10.10 Alcohol abuse, uncomplicated (principal); D64.9 Anemia, unspecified; E87.6 Hypokalemia; I50.9 Heart failure, unspecified; I10 Essential (primary) hypertension
CPT/HCPCS: 36415; 80053; 82607; 82746; 83540; 83735; 83880; 85025

== ENCOUNTER 2025-02-15 13:40 | Outpatient (CLI) | payer OTHER, SELFPAY ==
[2025-02-15 13:54] LABS: Hematocrit 39.4 % (35.0-49.0); Hemoglobin 13.5 g/dL (12.0-15.0); Immature Granulocyte Percent A 0.2 % (0.0-0.0); Lymphocytes Absolute Auto 1.79 K/mm3 (1.10-4.50); Mean Corpuscular HGB Conc 34.3 g/dL (32-36); Mean Corpuscular Hemoglobin 30.9 pg (27.0-31.0); Mean Corpuscular Volume 90.2 fL (78.0-102.0); Nucleated Red Blood Cells Absolute Auto 0.00 K/mm3 (0.00-0.00); Nucleated Red Blood Cells Perc 0.0 % (0-0.0); Platelet Count Result 252 K/mm3 (150-420); Red Blood Count 4.37 M/mm3 (4.20-5.40); White Blood Count 8.4 K/mm3 (4.8-10.8)
--- OUTSIDE RECORDS SUMMARY | 2025-02-15 13:54 | XMS_ITS | Clinical Summary ---
Author Organization [facility] Address [address] [place] [address] Phone Care Team Providers Care Ventilation Mechanic Name Role Phone Joellen Shepherd SPORTS LEADERSHIP INSTRUCTOR, MACHINING TECHNICIAN Primary Care Provi jameel Neo Mcfadden SPORTS LEADERSHIP INSTRUCTOR, MACHINING TECHNICIAN Unavailable [phone] Allergies Active Allergy Reactions Criticality Noted Date [...] by mouth daily. 30 Tablet 5 Active NIFEdipine CR (PROCARDIA-XL) 30 MG TABLET SR 24 HR Take 30 mg by mouth. Active tamsulosin (FLOMAX) 0.4 MG Capsule Take 0.4 mg by mouth. Active Cyanocobalamin (VITAMIN B 12 PO) Take by mouth. Activ e sulfamethoxazole -trimethoprim DS (BACTRIM DS, SEPTRA DS) 800-160 MG Tablet Take 2 Tablets by mouth. Active ferrous sulfate 325 (65 Fe) MG Tablet Take 325 mg by mouth. Active traZODone (DESYREL) 50 MG Tablet Take 50 mg by mouth. Active Active Problems Problem Noted Date Diagnosed Date Acute urinary retention 11/08/2024 Hypertensive urgency 11/08/2024 Sepsis OMAIRA (acute kidney injury) Ileus Cholecystitis Diarrhea Normocytic anemia Hypokalemia Polysubstance dependence Tobacco dependency Alcohol dependency Encounters Date Type Department Care Team Description 02/14/2025 Telephone [facility] [address] [place] [phone] Neo Mcfadden, SPORTS LEADERSHIP INSTRUCTOR, MACHINING TECHNICIAN 02/10/2025 5:09 PM CDT - 02/10/2025 6:10 PM CDT Emergency [facility] Emergency [address] [place] [id number] Yasmin Douglas, SPORTS LEADERSHIP INSTRUCTOR, MACHINING TECHNICIAN Complication of catheter Discharge Disposition: Discharged to home or Selfcare 02/10/2025 Travel 01/31/2025 Telephone [facility] [place] [address] Neo Mcfadden, SPORTS LEADERSHIP INSTRUCTOR, MACHINING TECHNICIAN catheter supplies 12/29/2024 Telephone [facility] [address] [place] [address] Neo Mcfadden, SPORTS LEADERSHIP INSTRUCTOR, MACHINING TECHNICIAN 12/29/2024 Telephone [facility] #[address] [place] [address] Neo Mcfadden APRN, JAMAL 12/26/2024 10:45 AM CDT Office Visit [facility] [place] [address] Neo Mcfadden, SPORTS LEADERSHIP INSTRUCTOR, MACHINING TECHNICIAN Urinary retention (Primary Dx) Discharge Disposition: Discharged to home or Selfcare 12/26/2024 Travel 12/06/2024 Telephone [facility] [address] [place] [address] Neo Mcfadden APRN, JAMAL 12/05/2024 Home Care Visit [address] [address] Bettye Whitaker, RN SN - OASIS TRANSFER W/DC 11/21/2024 Home Care Visit [address] [address] Elham Hitchcock OT TELEPHONE ENCOUNTER 11/21/2024 Home Care Visit [address] [address] Bettye Whitaker, RN TELEPHONE ENCOUNTER 11/16/2024 1:30 PM CDT Home Care Visit [address] [address] Keri Lopez, RESTORATION OFFICER RESTORATION OFFICER - HOME VISIT 11/16/2024 Home Care Visit [address] [address] Meg Cassidy, PT CASE COMMUNICATION from Last 3 Months Family History Medical History Relation Name Comments Bone Cancer Father Hypertension Father Lung Cancer Father brain tumor Father Chronic Obstructive Pulmonary Disease Mother Hypertension Mother generalized anxiety Mother Relation Name Status Comments Father Mother Social History Tobacco Use Types Packs/Day Years Used Date Smoking Tobacco: Every Day Cigarettes 1 26.5 Started: 1998 Passive Smoke Exposure: Current Tobacco Cessation:Ready to Q uit: Not Asked; Counseling Given: Not Answered Alcohol Use Standard Drinks/Week Comments Not Currently 0 (1 standard drink = 0.6 oz pure alcohol) Around a pint a day. last drink 5 weeks ago [facility] Utilities Answer Date Recorded In the past 12 months has e electric, gas, oil, or water company threatened to shut off services in your home? Patient declined 11/08/2024 Social Connection and Isolation Panel Answer Date Recorded In a typical week, how many times do you talk on the phone with family, friends, or neighbors? Patient declined 11/08/2024 How often do you get togethe r with friends or relatives? Patient declined 11/08/2024 How often do you attend orthodox or catholic serv ices? Patient declined 11/08/2024 Do you belong to any clubs o r organizations such as orthodox groups, unions, fraternal or athletic groups, or [...] medical care, and heating? Patient declined 11/08/2024 [facility] - Occupational Stress Questionnaire Answer [...] Sign Reading Time Taken Comments Blood Pressure 157/89 02/10/2025 6:10 PM CDT Pulse 72 02/10/2025 6:10 PM CDT Temperature 36.1 C (97 F) 02/10/2025 6:10 PM CDT Respiratory Rate 18 02/10/2025 6:10 PM CDT Oxygen Saturation 99% 02/10/2025 6:10 PM CDT Inhaled Oxygen Concentration - - Weight 55.3 kg (122 lb) 02/10/2025 5:14 PM CDT Height 165.1 cm (5' 5) 02/10/2025 5:14 PM CDT Body Mass Index 20.3 02/10/2025 5:14 PM CDT Plan of Treatment Upcoming Encounters Date Type Department Care Team (Late st Contact Info) Description 03/28/2025 1:30 PM CDT [facility] [place] [address] Neo Mcfadden, SPORTS LEADERSHIP INSTRUCTOR, MACHINING TECHNICIAN [address] [place] [address] Health Maintenance Due Date Last Done Comments Hepatitis C Virus (HCV) Screening 1975 Mammogram 1975 TdaP Immunization 1975 Hepatitis B Immunization (1 of 3 - 19+ 3-dose series) 11/09/1994 Pneumococcal Immunization Co mbined (1 of 2 - PCV) 11/09/1994 Pap Smear 11/09/1996 Cervical Cancer Screening (CCS) 11/09/2005 HPV/Cotest 11/09/2005 Discussion re Starting/Frequ ency of Mammograms 2015 Cologuard 11/09/2020 Colonoscopy 11/09/2020 Colorectal Cancer Screening 11/09/2020 Immunochemical Fecal Occult Blood 11/09/2020 SARS-COV-2 Immunization ( season) 2024 Influenza Immunization (#1) 2025 Respiratory Syncytial Virus (RSV) Immunization (Adult) (1 - 1-dose 75+ series) 11/09/2050 Human Papillomavirus (HPV) Immunization Aged Out No longer eligible b ased on patient's age to complete this topic Meningococcal Immunization (ACWY) Aged Out No longer eligible based on patient's age to complete this topic Rotavirus Immunization Aged Out No lo nger eligible based on patient's age to complete this topic Insurance MEDICAID AETNA [facility] Advance Directives Documents on File Type Date Recorded Patient Clinical Fellow Expl anation Power of Director Talent for [facility] Care 2024 3:05 PM POA-HC, 10/31/2024 * Full Code (Latest Code Status on File) Date Activated Date Inactivated Comments 11/08/2024 9:33 PM CPR-Full Treatm ent: FULL ARREST: Attempt Resuscitation/CPR wit intubation and mechanical ventilation. PRE-ARREST: Use entire range of life support measures to stabilize the patient. Care Teams Ventilation Mechanic Relationship Specialty Start Date End Date Joellen Shepherd APRN, MACHINING TECHNICIAN [address] [place] [address] PCP - General Advanced Practice Nurse 11/09/24 Neo Mcfadden APRN, MACHINING TECHNICIAN [address] [place] [address] Nurse Practitioner Advanced Practice Nurse 12/22/24
--- OUTSIDE RECORDS SUMMARY | 2025-02-15 13:54 | XMS_ITS ---
Author Organization [facility] Address [address] [place] [address] Phone Care Team Providers Care Master Fisher Name Role Phone Joellen Shepherd APRN, LAUNDRY WASHER Primary Care Provi jameel Neo Mcfadden APRN, LAUNDRY WASHER Unavailable [phone] [facility] Chronic Condition Monitoring Status:Enrolled (Active) Start date:02/09/2025 Enrollment date:02/09/2025 Related social drivers of health:Alcohol Use, Tobacco Use, Financial Resource Strain, Depression, Stress, Physical Activity, Food Insecurity, Transportation Needs, Utilities Continued Care and Services Coordination
--- OUTSIDE RECORDS SUMMARY | 2025-02-15 13:54 | XMS_ITS | Encounter Summary ---
Author Organization [facility] Address [address] [place] [address] Phone Care Team Providers Care Rail Transportation Operator Name Role Phone Joellen Shepherd APRN, HOOKER LASTER Primary Care Provi jameel Neo Mcfadden APRN, HOOKER LASTER Unavailable [phone] Encounter Details Date Type Department Care Team (Late st Contact Info) Description 02/14/2025 Telephone [facility] [place] [address] Neo Mcfadden APRN, HOOKER LASTER [address] [place] [address] Social History Tobacco Use Types Packs/Day Years Used Date Smoking Tobacco: Every Day Cigarettes 1 26.5 Started: 1998 Passive Smoke Exposure: Current Alcohol Use Standard Drinks/Week Comments Not Currently 0 (1 standard drink = 0.6 oz pure alcohol) Around a pint a day. last drink 5 weeks ago [facility] Utilities Answer Date Recorded In the past 12 months has [employer], gas, oil, or water [employer] threatened to shut off services in your home? Patient declined 11/08/2024 Social Connection and Isolation Panel Answer Date Recorded In a typical week, how many times do you talk on the phone with family, friends, or neighbors? Patient declined 11/08/2024 How often do you get togethe r with friends or relatives? Patient declined 11/08/2024 How often do you attend sikh or pentecostalism serv ices? Patient declined 11/08/2024 Do you [...] medical care, and heating? Patient declined 11/08/2024 [facility] ional [facility] - [...] any time in the past 12 m ont, were you homeless or living in a retirement (including now)? No 11/08/2024 Sexually Active Control Partners Comments Not Currently Comments No Sex and Gender Information Value Date Recorded Sex Assigned at Not on file Legal Sex Female 1:48 PM CDT Gender Identity Not on file Sexual Orientation Not on file documented as of this encounter Miscellaneous Notes * Telephone Encounter - Brittany Scales RN - 02/14/2025 2:32 PM CDT Pt's sister Maria L came to the clinic today stating pt needs more catheter supplies. Maria L states [facility] told pt they mailed out more catheters to pt today and the catheters should be arriving at pt's house by 02/16/2025. Gave pt's sister more catheter supplies and told Maria L to come backto the office if the supplies don't arrive by 02/16/2025. Maria L states understanding. Called [facility] at [facility]. [facility] comfirms the pt's catheter supply order has been shipped todayand is scheduled to arrive on 02/16/2025. documented in this encounter Plan of Treatment Upcoming Encounters Date Type Department Care Team (Late st Contact Info) Description 03/28/2025 1:30 PM CDT Office Visit [facility] [place] [phone] Neo Mcfadden APRN, HOOKER LASTER [address] [place] [address] documented as of this encounter Visit Diagnoses Not on filedocumented in this encounter Care Teams Rail Transportation Operator Relationship Specialty Start Date End Date Geangelinahausen, Joellen M, MICHAEL, HOOKER LASTER [address] [place] [address] PCP - General Advanced Practice Nurse 11/09/24 Neo Mcfadden APRN, HOOKER LASTER [address] [place] [address] Nurse Practitioner Advanced Practice Nurse 12/22/24 documented as of this encounter
--- OUTSIDE RECORDS SUMMARY | 2025-02-15 13:54 | XMS_ITS | Clinical Summary ---
Author Organization [facility] Address [address] [place] [address] Care Team Providers Care Weatherization Specialist Name Role Phone GregoryMilan lepe Primary Care Provider [phone] Allergies Active Allergy Reactions Criticality Noted Date [...] Encounters Date Type Department Care Team Description 12/30/2024 11:00 AM CDT Home Care Visit [address] [address] Princess Garcia RN SN OASIS DISCHARGE/ASSESSMENT 12/22/2024 1:00 PM CDT Home Care Visit [address] [address] Princess Garcia RN SN HOME VISIT 12/07/2024 2:00 PM CDT Home Care Visit [address] [address] Maryjo Machado, PT CASE COMMUNICATION 12/06/2024 Home Care Visit [address] [address] Andreea Geiger RN CASE COMMUNICATION 12/05/2024 11:30 AM CDT Home Care Visit [address] [address] Andreea Geiger RN SN OASIS START OF CARE 12/05/2024 Plan of Care Documentation [address] [address] 12/01/[address] [address] Scanned, [facility] from Last 3 Months Social History Tobacco [...] of experiencing loneliness or isolatio n Never 12/30/2024 OASIS A1250: Transportation Answer Date Recorded Lack of Transportation (Medical) Yes 12/30/2024 Lack of Transportation (Non-Medical) No 12/30/2024 Patient Unable or Declines to Respond No 12/30/2024 OASIS B1300: Health Literacy Answer Lv e Recorded Frequency of needing help to read materials from doctor or pharmacy Never 12/30/2024 Comments No Sex and Gender Information Value Date Recorded Sex Assigned at Female 11/08/2024 10:21 AM CDT Legal Sex Female 1:42 AM CDT Gender Identity Not on file Sexual Orientation Not on file Last Filed Vital Signs Vital Sign Reading Time Taken Comments Blood Pressure 102/64 12/30/2024 10:42 AM CDT Pulse 80 12/30/2024 10:42 AM CDT Temperature 36.8 C (98.2 F) 12/30/2024 10:42 AM CDT Respiratory Rate 18 12/30/2024 10:42 AM CDT Oxygen Saturation 98% 12/30/2024 10:42 AM CDT Inhaled Oxygen Concentration - - Weight 59 kg (130 lb) 11/08/2024 10:25 AM CDT Height 165.1 cm (5' 5) 11/08/2024 10:25 AM CDT Body Mass Index [...] on patient's age to complete this topic Additional Health Concerns Infection Onset Date Last Indicated C. difficile 11/08/2024 11/08/2024 Insurance [facility] Advance Directives * Full Code (Latest Code Status on File) Date Activated Date Inactivated Comments 12/05/2024 1:34 PM Care Teams Weatherization Specialist Relationship Specialty Start Date End Date Mialn Heredia DO [address] [place] [address] PCP - General FAMILY PRACTICE 12/01/24
[2025-02-15 14:11] LABS: Alanine Aminotransferase 17 U/L (6-35); Albumin Level 4.1 g/dL (3.5-5.1); Alkaline Phosphatase 85 U/L (38-126); Anion Gap 4 mmol/L (4-12); Aspartate Amino Transferase 23 U/L (14-36); Bilirubin,Total 0.3 mg/dL (0.2-1.3); Blood Urea Nitrogen 19 mg/dL (7-17); Calcium 8.9 mg/dL (8.4-10.2); Carbon Dioxide 24 mmol/L (22-30); Chloride 112 mmol/L (98-107); Estimated Glomerular Filt Rate 51; Glucose 91 mg/dL (65-110); Iron 57 ug/dL (37-170); Magnesium 2.0 mg/dL (1.6-2.3); Osmolality Calculated 292 mOsm/kg (285-295); Potassium 3.6 mmol/L (3.4-5.0); Sodium 140 mmol/L (137-145); Total Protein 6.8 g/dL (6.3-8.2)
[2025-02-15 14:19] LABS: NT Pro B Type Natriuretic Pept 3440 pg/mL (19.9-100)
== END 2025-02-15 13:41 | disposition home or self-care (01) ==
LOC: CHSLAB 13:41
PROVIDERS: PCP Nurse Practitioner Family; Visit Provider Nurse Practitioner Family
DX: E83.42 Hypomagnesemia (principal); D64.9 Anemia, unspecified; N17.9 Acute kidney failure, unspecified; I11.0 Hypertensive heart disease with heart failure
CPT/HCPCS: 36415; 80053; 83540; 83735; 83880; 85025

== ENCOUNTER 2025-02-20 14:27 | Outpatient (CLI) | payer OTHER, SELFPAY ==
--- OUTSIDE RECORDS SUMMARY | 2025-02-20 14:30 | XMS_ITS | Clinical Summary ---
Author Organization [facility] Address [address] [place] [address] Phone Care Team Providers Care Funeral Service Licensee Name Role Phone Joellen Shepherd TALENT ASSISTANT, DRONE OPERATOR Primary Care Provi jameel Neo Mcfadden TALENT ASSISTANT, DRONE OPERATOR Unavailable [phone] Allergies Active Allergy Reactions Criticality Noted Date [...] needed for Anxiety. 30 Tablet 5 Active Additional Information Patient taking differently:25 mg OralDAILY, Reported on 02/20/2025 ondansetron (ZOFRAN-ODT) 4 MG TABLET DISPERSIBLE Take 1 Tablet by mouth every 6 hours as needed for Nausea - 1st line. 10 Tablet 5 Active lisinopril (PRINIVIL, ZESTRIL) 5 MG Tablet Take 1 Tablet by mouth daily. 30 Tablet 5 Active Additional Information Patient not taking.Reported on 02/20/2025 NIFEdipine CR (PROCARDIA-XL) 30 MG TABLET SR 24 HR Take 60 mg by mouth daily. 5 Active tamsulosin (FLOMAX) 0.4 MG Capsule Take 0.4 mg by mouth daily. Active Cyanocobalamin (VITAMIN B 12 PO) Take 1 Tablet by mouth daily. Active ferrous sulfate 325 (65 Fe) MG Tablet Take 325 mg by mouth 2 times daily. Active traZODone (DESYREL) 50 MG Tablet Take 50 mg by mouth nightly as needed. Active citalopram (CeleXA) 20 MG Tablet Take 20 mg by mouth daily. Active oxybutynin (DITROPAN) 5 MG Tablet Take 5 mg by mouth 3 times daily. 5 Active POTASSIUM CHLORIDE PO Take 1 Tablet by mouth daily. Active MAGNESIUM PO Take 1 Tablet by mouth daily. Active nicotine (NICODERM CQ) 21 MG/24HR PATCH 24 HR 1 Patch by Transdermal route daily as needed for Other (smoking cessation). 30 Patch 5 025 Discontin ued(Med List Clean Up) sulfamethoxazol e-trimethoprim DS (BACTRIM DS, SEPTRA DS) 800-160 MG Tablet Take 2 Tablets by mouth. 5 025 Discontin ued(Thera py completed ) Active Problems Problem Noted Date Diagnosed Date Acute urinary retention 11/08/2024 Hypertensive urgency 11/08/2024 Sepsis OMAIRA (acute kidney injury) Ileus Cholecystitis Diarrhea Normocytic anemia Hypokalemia Polysubstance dependence Tobacco dependency Alcohol dependency Encounters Date Type Department Care Team Description 02/20/2025 Telephone [facility] [address] [place] [phone] Loki Cardoso, TALENT ASSISTANT, DRONE OPERATOR Need Order 02/20/2025 Nurse Triage [facility] [address] [place] [phone] Liv Schaefer RN Hypertension 02/16/2025 Nurse Triage [facility] [address] [place] [phone] Deanna Lentz, RN Hypertension ([facility] (Remote Patient Monitoring Program)/) 02/14/2025 Telephone [facility] #[address] [place] [address] Neo Mcfadden APRN, DRONE OPERATOR 02/10/2025 5:09 PM CDT - 02/10/2025 6:10 PM CDT Emergency [facility] [address] [facility] [phone] Yasmin Douglas, TALENT ASSISTANT, DRONE OPERATOR Complication of catheter Discharge Disposition: Discharged to home or Selfcare 02/10/2025 Travel 01/31/2025 Telephone [facility] #[address] [place] [address] Neo Mcfadden APRN, DRONE OPERATOR catheter supplies 12/29/2024 Telephone [facility] #[address] [place] [address] Neo Mcfadden TALENT ASSISTANT, DRONE OPERATOR 12/29/2024 Telephone [facility] #[address] [place] [address] Neo Mcfadden TALENT ASSISTANT, DRONE OPERATOR 12/26/2024 10:45 AM CDT Office Visit [facility] #[address] [place] [address] Neo Mcfadden, TALENT ASSISTANT, DRONE OPERATOR Urinary retention (Primary Dx) Discharge Disposition: Discharged to home or Selfcare 12/26/2024 Travel 12/06/2024 Telephone [facility] [address] [place] [address] Neo Mcfadden TALENT ASSISTANT, DRONE OPERATOR 12/05/2024 Home Care Visit [address] [address] Bettye Whitaker RN SN - OASIS TRANSFER W/DC 11/21/2024 [facility] [address] [place] [address] Elham Hitchcock OT TELEPHONE ENCOUNTER 11/21/2024 [facility] [address] [place] [address] Bettye Whitaker, RN TELEPHONE ENCOUNTER from Last 3 Months Family History Medical [...] Exposure: Current Tobacco Cessation:Ready to Q uit: No; Counseling Given: No Alcohol Use Standard Drinks/Week Comments Not Currently 0 (1 standard drink = 0.6 oz pure alcohol) Around a pint a day. last drink 5 weeks ago [facility] [employer] Answer Date Recorded In the past 12 months has [employer], [employer], oil, or water [employer] threatened to shut off services in your home? Patient declined 11/08/2024 Social Connection and Isolation Panel Answer Date Recorded In a typical week, how many times do you talk on the phone with family, friends, or neighbors? Patient declined 11/08/2024 How often do you get togethe r with friends or relatives? Patient declined 11/08/2024 How often do you attend episcopal or evangelical serv ices? Patient declined 11/08/2024 Do you belong to any clubs o r organizations such as episcopal groups, unions, fraternal or athletic groups, or [...] medical care, and heating? Patient declined 11/08/2024 [facility] of Occupat ional Health - Occupational Stress [...] any time in the past 12 m [facility], were you homeless or living in a penitentiary (including now)? No 11/08/2024 Sexually Active Control [...] Description 03/28/2025 1:30 PM CDT Office Visit [facility] [place] [address] Neo Mcfadden APRN, DRONE OPERATOR [address] [place] [address] Health Maintenance Due Date Last Done Comments [...] to complete this topic Insurance MEDICAID AETNA [facility] Advance Directives Documents on File Type Date Recorded Patient Deputy Sheriff Bailiff Expl anation Power of Tea Tree Farm Worker for Health Care 2024 3:05 PM POA-, 10/31/2024 * Full Code (Latest Code Status on File) Date Activated Date Inactivated Comments 11/08/2024 9:33 PM CPR-Full Treatm ent: FULL ARREST: Attempt Resuscitation/CPR wit intubation and mechanical ventilation. PRE-ARREST: Use entire range of life support measures to stabilize the patient. Care Teams Funeral Service Licensee Relationship Specialty Start Date End Date Joellen Shepherd, TALENT ASSISTANT, DRONE OPERATOR [address] [place] [address] PCP - General Advanced Practice Nurse 11/09/24 Neo Mcfadden, TALENT ASSISTANT, DRONE OPERATOR [address] [place] [address] Nurse Practitioner Advanced Practice Nurse 12/22/24
--- OUTSIDE RECORDS SUMMARY | 2025-02-20 14:30 | XMS_ITS | Clinical Summary ---
Author Organization [facility] Address [address] [place] [address] Care Team Providers Care Plastic Maker Name Role Phone GregoryMilan lepe Primary Care Provider [phone] Allergies Active Allergy Reactions Criticality Noted Date [...] 12/30/2024 11:00 AM CDT Home Care Visit [address] [address] Princess Garcia RN SN OASIS DISCHARGE/ASSESSMENT 12/22/2024 1:00 PM CDT Home Care Visit [address] [address] Princess Garcia RN SN HOME VISIT 12/07/2024 2:00 PM CDT Home Care Visit [address] [address] Maryjo Machado, PT CASE COMMUNICATION 12/06/2024 Home Care Visit [address] [address] Andreea Geiger RN CASE COMMUNICATION 12/05/2024 11:30 AM CDT Home Care Visit [address] [address] Andreea Geiger RN SN OASIS START OF CARE 12/05/2024 Plan of Care Documentation [address] [address] 12/01/[address] [address] Scanned, [facility] from Last 3 Months Social History Tobacco [...] Last Indicated C. difficile 11/08/2024 11/08/2024 Insurance [facility] Advance Directives * Full Code (Latest Code Status on File) Date Activated Date Inactivated Comments 12/05/2024 1:34 PM Care Teams Plastic Maker Relationship Specialty Start Date End Date Milan Heredia DO [address] [place] [address] PCP - General FAMILY PRACTICE 12/01/24
--- OUTSIDE RECORDS SUMMARY | 2025-02-20 14:30 | XMS_ITS ---
Author Organization [facility] Address [address] [place] [address] Phone Care Team Providers Care Zyglo Inspector Name Role Phone Joellen Shepherd APRN, CUSTOMER SERVICE CONSULTANT Primary Care Provi jameel Neo Mcfadden APRN, CUSTOMER SERVICE CONSULTANT Unavailable [phone] On[facility] Chronic Condition Monitoring Status:Enrolled (Active) Start date:02/09/2025 Enrollment date:02/09/2025 Related social drivers of health:Alcohol Use, Tobacco Use, Financial Resource Strain, Depression, Stress, Physical Activity, Food Insecurity, Transportation Needs, Utilities Continued Care and Services Coordination
--- OUTSIDE RECORDS SUMMARY | 2025-02-20 14:30 | XMS_ITS | Encounter Summary ---
Author Organization [facility] Address [address] [place] [address] Phone Care Team Providers Care Bull Chain Operator Name Role Phone Joellen Shepherd APRN, FOREIGN LANGUAGE INTERPRETER Primary Care Provi jameel Neo Mcfadden APRN, FOREIGN LANGUAGE INTERPRETER Unavailable [phone] Reason for Visit * Reason Onset Date Comments Need Order 02/20/2025 Encounter Details Date Type Department Care Team (Late st Contact Info) Description 02/20/2025 Telephone [facility] [address] [place] [address] Loki Cardoso, MICHAEL, FOREIGN LANGUAGE INTERPRETER [address] [place] [phone] Need Order Social History Tobacco Use Types Packs/Day Years Used Date Smoking Tobacco: Every Day Cigarettes 1 26.5 Started: 1998 Passive Smoke Exposure: Current Alcohol Use Standard Drinks/Week Comments Not Currently 0 (1 standard drink = 0.6 oz pure alcohol) Around a pint a day. last drink 5 weeks ago [facility] Utilities Answer Date Recorded In the past 12 months has [employer], gas, oil, or water company threatened to [...] declined 11/08/2024 How often do you attend christianity or caodaism serv ices? Patient declined 11/08/2024 Do you belong to any clubs o r organizations such as christianity groups, unions, fraternal or athletic groups, or [...] medical care, and heating? Patient declined 11/08/2024 [facility] Occupat ional [facility] - Occupational [...] encounter Miscellaneous Notes * Telephone Encounter - Mary Frost APRN, CNP - 02/20/2025 12:48 PM CDT Order signed. * Telephone Encounter - Catherine Trammell - 02/20/2025 12:43 PM CDT Patient is a part of the [facility] Hypertension Remote Patient Monitoring program. Patient is needing a blood pressure cuff. Order pended to [facility], please sign. documented in this encounter Plan of Treatment Upcoming Encounters Date Type Department Care Team (Late st Contact Info) Description 03/28/2025 1:30 PM CDT Office Visit [facility] [address] [place] [phone] Neo Mcfadden APRN, CNP [address] [place] [address] documented as of this encounter Visit Diagnoses Diagnosis Hypertensive urgency- Primary Unspecified essential hypertension documented in this encounter Care Teams Bull Chain Operator Relationship Specialty Start Date End Date Joellen Shepherd APRN, FOREIGN LANGUAGE INTERPRETER [address] [place] [address] PCP - General Advanced Practice Nurse 11/09/24 Neo Mcfadden APRN, FOREIGN LANGUAGE INTERPRETER [address] [place] [address] Nurse Practitioner Advanced Practice Nurse 12/22/24 documented as of this encounter
--- OUTSIDE RECORDS SUMMARY | 2025-02-20 14:30 | XMS_ITS | Encounter Summary ---
Author Organization [facility] Address [address] [place] [address] Phone Care Team Providers Care Senior Ecologist Name Role Phone Joellen Shepherd APRN, MINING TEACHER Primary Care Provi jameel Neo Mcfadden APRN, MINING TEACHER Unavailable [phone] Reason for Visit * Reason Onset Date Comments Hypertension 02/20/2025 Encounter Details Date Type Department Care Team (Late st Contact Info) Description 02/20/2025 Nurse Triage [facility] [address] [place] [address] Liv Schaefer, RN [place] Hypertension Social History Tobacco Use Types Packs/Day Years Used Date Smoking Tobacco: Every Day Cigarettes 1 26.5 Started: 1998 Passive Smoke Exposure: Current Tobacco Cessation:Ready to Q uit: No; Counseling Given: No Alcohol Use Standard Drinks/Week Comments Not Currently 0 (1 standard drink = 0.6 oz pure alcohol) Around a pint a day. last drink 5 weeks ago [facility] Utilities Answer Date Recorded In the past 12 months has [employer], gas, oil, or water [employer] threatened to shut off services in your home? Patient declined 11/08/2024 Social Connection and Isolation Panel Answer Date Recorded In a typical week, how many times do you talk on the phone with family, friends, or neighbors? Patient declined 11/08/2024 How often do you get togethe r with friends or relatives? Patient declined 11/08/2024 How often do you attend christianity or zoroastrianism serv ices? Patient declined 11/08/2024 Do you [...] medical care, and heating? Patient declined 11/08/2024 [facility] - Occupational Stress Questionnaire Answer [...] any time in the past 12 m [facility], were you homeless or living in a senior living (including now)? No 11/08/2024 Sexually Active Control Partners Comments Not Currently Comments No Sex and Gender Information Value Date Recorded Sex Assigned at Not on file Legal Sex Female 1:48 PM CDT Gender Identity Not on file Sexual Orientation Not on file documented as of this encounter Miscellaneous Notes * Addendum Note - Teddy Bowie APRN, CNP - 02/20/2025 12:53 PM CDT Addended by: TEDDY BOWIE on: 02/20/2025 12:53 PM Modules accepted: Orders * Telephone Encounter - Teddy Bowie APRN, CNP - 02/20/2025 12:53 PM CDT Nicotine and bactrim removed. Will hold on lisinopril until discussed at next PCP visit. * Telephone Encounter - Liv Schaefer RN - 02/20/2025 11:38 AM CDT [facility] Contacted patient due to a caresignal alert. Introduced self and stated reason for call. [facility] Chronic Condition Remote Patient Monitoring Program - Hypertension. Situation: Patient triggered an alert for a blood pressure reading of 168/106 at 1134. She took herblood pressure medications around 1100 so I did not ask her to recheck at this time. Background: Patient reports nifedipine was increased to 60 mg daily due to elevated BNP. She has been using a wrist blood pressure monitor. Advised I will request that an arm cuff is ordered for her for better accuracy. Email sent to Sita requesting this be ordered for patient. Patientis seeing her primary care provider this afternoon at 1:30 pm. Assessment: See initial assessment questions below. Recommendation: Disposition is see primary care provider or video visit within 3 days. Patient is already scheduled to see her primary care provider this afternoon at 1:30 pm. Encouraged her to report elevated blood pressure readings during the visit and contact our team 02/03 with any needs. She verbalized understanding of all information. Medications flagged for removal from medication list. The disposition from the triage is see physician within 3 days. Triage disposition followed. Patient is seeking in person care. Patient is already scheduled to see her primary care provider this afternoon. All questions and concerns were answered. For Remote Patient Monitoring patient reported vitals, please navigate to review flowsheets and select [facility] PATIENT REPORTED DATA [524]. 1. BLOOD PRESSURE: What is your blood pressure? Did you take at least two measurements 5 minutesapart? 168/106 at 1134. Patient just took medications at 1100 so I did not ask her to recheck at this time 2. ONSET: When did you take your blood pressure? See above 3. HOW: How did you take your blood pressure? (e.g., automatic home BP monitor, visiting nurse) Automatic wrist monitor 4. HISTORY: Do you have a history of high blood pressure? Yes 5. MEDICINES: Are you taking any medicines for blood pressure? Have you missed any doses recently? Denies missed doses. Took medications around 1100 6. OTHER SYMPTOMS: Do you have any symptoms? (e.g., blurred vision, chest pain, difficulty breathing, headache, weakness) Denies all symptoms above. Patient states she is feeling fine. 7. : Is there any chance you are ? When was your last menstrual period? Denies See PCP or video visit within 3 days documented in this encounter Plan of Treatment Upcoming Encounters Date Type Department Care Team (Late st Contact Info) Description 03/28/2025 1:30 PM CDT Office Visit [facility] [address] [place] [address] Neo Mcfadden, SHAKE SAWYER, MINING TEACHER [address] [place] [address] documented as of this encounter Visit Diagnoses Not on filedocumented in this encounter Care Teams Senior Ecologist Relationship Specialty Start Date End Date Joellen Shepherd APRN, MINING TEACHER [address] [place] [address] PCP - General Advanced Practice Nurse 11/09/24 Neo Mcfadden APRN, MINING TEACHER [address] [place] [address] Nurse Practitioner Advanced Practice Nurse 12/22/24 documented as of this encounter
--- OUTSIDE RECORDS SUMMARY | 2025-02-20 14:30 | XMS_ITS | Encounter Summary ---
Author Organization [facility] Address [address] [place] [address] Phone Care Team Providers Care Foreclosure Field Inspector Name Role Phone Joellen Shepherd APRN, SLUNK SKINNER Primary Care Provi jameel Neo Mcfadden APRN, SLUNK SKINNER Unavailable [phone] Reason for Visit * Reason Onset Date Comments Hypertension 02/16/[address] (Remote Patient Monitoring Program) Encounter Details Date Type Department Care Team ([facility] st Contact Info) Description 02/16/2025 Nurse Triage [facility] [address] [place] [address] Deanna Lentz, [place] Hypertension ([facility] (Remote Patient Monitoring Program)/) Social History Tobacco Use Types Packs/Day Years Used Date Smoking Tobacco: Every Day Cigarettes 1 26.5 Started: 1998 Passive Smoke Exposure: Current Alcohol Use Standard Drinks/Week Comments Not Currently 0 (1 standard drink = 0.6 oz pure alcohol) Around a pint a day. last drink 5 weeks ago [facility] Utilities Answer Date Recorded In the past 12 months has [employer], gas, oil, or water [employer] threatened to shut off services in your home? Patient declined 11/08/2024 Social Connection and Isolation Panel Answer Date Recorded In a typical week, how many times do you talk on the phone with family, friends, or neighbors? Patient declined 11/08/2024 How often do you get togethe r with friends or relatives? Patient declined 11/08/2024 How often do you attend muslim or yarsani serv ices? Patient declined 11/08/2024 Do you belong to any clubs o r organizations such as muslim groups, unions, fraternal or athletic groups, or [...] medical care, and heating? Patient declined 11/08/2024 [facility] Occupat ional Health - [...] the past 12 m [facility], were you homeless or living in a [facility] (including now)? No 11/08/2024 Sexually Active Control Partners Comments Not Currently Comments No Sex and Gender Information Value Date Recorded Sex Assigned at Not on file Legal Sex Female 1:48 PM CDT Gender Identity Not on file Sexual Orientation Not on file documented as of this encounter Miscellaneous Notes * Telephone Encounter - Tracy Green APRN, CNP - 02/16/2025 11:43 AM CDT Agree w/ triage recommendations. Thank you! * Telephone Encounter - Deanna Lentz RN - 02/16/2025 11:08 AM CDT [facility] Contacted patient due to a caresignal alert. Introduced self and stated reason for call. [facility] Chronic Condition Remote Patient Monitoring Program - Hypertension. Situation: Alert for blood pressure 182/110 Background: Patient reports taking her blood pressure medications 10 minutes prior to checking her blood pressure. She also reports that she has been working and very active and this may also be the reason for her blood pressure being higher. Patient is unable to re-check her blood pressure at thistime due to not being at home. Assessment: Patient denies having any symptoms of headache, changes with vision, chest pain, shortness of breath, dizziness, weakness, or any other symptoms at this time.Patient is speaking in full and complete sentences without any pauses or distress at this time. Recommendation: Offered patient a telemedicine visit with the [email or web address] Provider. Patient declined. She reports that she will re-check her blood pressure later to make sure that it is comingdown, but that she is fine. Educated patient on checking blood pressure 1-2 hours after taking blood pressure medications. The disposition from the triage is see physician within 24 hours. Patient refuses disposition and recommendations. Reviewed risks of refusing 911/not seeking in person evaluation, patient verbalized understanding. Medications, allergies, and history were not reviewed during this visit due to patient having them reviewed within the last 7 days. Patient denies any changes to medications, allergies, or history since they were last reviewed. All questions and concerns were answered. For Remote Patient Monitoring patient reported vitals, please navigate to review flowsheets and select [facility] PATIENT REPORTED DATA [524]. 1. BLOOD PRESSURE: What is your blood pressure? Did you take at least two measurements 5 minutesapart? 182/110. Patient is unable to check a second blood pressure due to not being home. 2. ONSET: When did you take your blood pressure? Approximately 1105 3. HOW: How did you take your blood pressure? (e.g., automatic home BP monitor, visiting nurse) automatic home blood pressure monitor 4. HISTORY: Do you have a history of high blood pressure? Yes 5. MEDICINES: Are you taking any medicines for blood pressure? Have you missed any doses recently? Patient has taken all recent doses of blood pressure medications. She took her blood pressure medication approximately 10 minutes prior to checking her blood pressure this morning. 6. OTHER SYMPTOMS: Do you have any symptoms? (e.g., blurred vision, chest pain, difficulty breathing, headache, weakness) None 7. : Is there any chance you are ? When was your last menstrual period? Not assessed See PCP or video visit within 24 hours documented in this encounter Plan of Treatment Upcoming Encounters Date Type Department Care Team (Late st Contact Info) Description 03/28/2025 1:30 PM CDT Office Visit [facility] [address] [place] [phone] Neo Mcfadden, ROSTER CLERK, SLUNK SKINNER [address] [place] [address] documented as of this encounter Visit Diagnoses Not on filedocumented in this encounter Care Teams Foreclosure Field Inspector Relationship Specialty Start Date End Date Joellen Shepherd, MICHAEL, SLUNK SKINNER [address] [place] [address] PCP - General Advanced Practice Nurse 11/09/24 Neo Mcfadden APRN, SLUNK SKINNER [address] [place] [address] Nurse Practitioner Advanced Practice Nurse 12/22/24 documented as of this encounter
[2025-02-20 15:08] LABS: NT Pro B Type Natriuretic Pept 684 pg/mL (19.9-100)
[2025-02-20 15:50] LABS: Vitamin B12 249.0 pg/mL (239-931)
== END 2025-02-20 14:28 | disposition home or self-care (01) ==
LOC: CHSLAB 14:28
PROVIDERS: PCP Nurse Practitioner Family; Visit Provider Nurse Practitioner Family
DX: E53.8 Deficiency of other specified B group vitamins (principal); Z79.899 Other long term (current) drug therapy; I50.9 Heart failure, unspecified
CPT/HCPCS: 36415; 82306; 82607; 83880

== ENCOUNTER 2025-03-30 16:56 | Outpatient (CLI) | payer OTHER, SELFPAY ==
[2025-03-30 17:10] LABS: Hematocrit 45.4 % (35.0-49.0); Hemoglobin 15.4 g/dL (12.0-15.0); Immature Granulocyte Percent A 0.3 % (0.0-0.0); Lymphocytes Absolute Auto 1.78 K/mm3 (1.10-4.50); Mean Corpuscular HGB Conc 33.9 g/dL (32-36); Mean Corpuscular Hemoglobin 30.3 pg (27.0-31.0); Mean Corpuscular Volume 89.2 fL (78.0-102.0); Nucleated Red Blood Cells Absolute Auto 0.00 K/mm3 (0.00-0.00); Nucleated Red Blood Cells Perc 0.0 % (0-0.0); Platelet Count Result 270 K/mm3 (150-420); Red Blood Count 5.09 M/mm3 (4.20-5.40); White Blood Count 6.3 K/mm3 (4.8-10.8)
[2025-03-30 18:27] LABS: Alanine Aminotransferase 20 U/L (6-35); Albumin Level 4.4 g/dL (3.5-5.1); Alkaline Phosphatase 86 U/L (38-126); Anion Gap 8 mmol/L (4-12); Aspartate Amino Transferase 23 U/L (14-36); Bilirubin,Total 0.3 mg/dL (0.2-1.3); Blood Urea Nitrogen 24 mg/dL (7-17); Calcium 9.4 mg/dL (8.4-10.2); Carbon Dioxide 26 mmol/L (22-30); Chloride 106 mmol/L (98-107); Estimated Glomerular Filt Rate 51; Glucose 82 mg/dL (65-110); Osmolality Calculated 293 mOsm/kg (285-295); Potassium 4.1 mmol/L (3.4-5.0); Sodium 140 mmol/L (137-145); Total Protein 7.1 g/dL (6.3-8.2)
[2025-03-30 18:36] LABS: NT Pro B Type Natriuretic Pept 1660 pg/mL (19.9-100)
[2025-03-30 18:52] LABS: CRP < 0.5 mg/dL (<1.0); Lipase 138 U/L (23-300)
[2025-03-30 18:55] LABS: Add Urine Microscopic? YES; Appearance Urine Clear (Clear); Glucose Urine UA Negative (Negative); Leukocyte Esterase Ur 2+ LEU/UL (Negative); Nitrate Urine Positive (Negative); Specific Grav Ur <= 1.005 (1.010-1.020)
== END 2025-03-30 16:57 | disposition home or self-care (01) ==
LOC: CHSLAB 16:57
PROVIDERS: PCP Nurse Practitioner Family; Visit Provider Nurse Practitioner Family
DX: R53.1 Weakness (principal); I50.9 Heart failure, unspecified; M54.9 Dorsalgia, unspecified; R33.9 Retention of urine, unspecified
CPT/HCPCS: 36415; 80053; 81001; 83690; 83880; 85025; 86140; 87086; 87186

== ENCOUNTER 2025-04-13 14:57 | Outpatient (RCR) | payer OTHER, SELFPAY ==
--- NOTE | 2025-04-27 14:50 | PCPTNOTE ---
Cancelled session. Reports she is not feeling well.
--- NOTE | 2025-05-22 16:17 | PCPTNOTE ---
No call, no show.
--- NOTE | 2025-06-01 14:39 | PCPTNOTE ---
Patient did not show up for scheduled appointment this date. -Angelica Wheatley, PT
== END 2025-07-12 23:59 | disposition home or self-care (01) ==
LOC: CHSPT 14:57
PROVIDERS: PCP Nurse Practitioner Family; Visit Provider Nurse Practitioner Family
DX: R53.1 Weakness (principal); I50.9 Heart failure, unspecified; I21.4 Non-ST elevation (NSTEMI) myocardial infarction
CPT/HCPCS: 97014; 97110; 97112; 97530; G0283

== ENCOUNTER 2025-04-14 11:22 | Outpatient (CLI) | payer OTHER, SELFPAY ==
--- OUTSIDE RECORDS SUMMARY | 2025-04-14 11:45 | XMS_ITS | Clinical Summary ---
Author Organization [facility] Address [address] [place] [address] Phone Care Team Providers Care Marketing Communications Manager Name Role Phone Joellen Shepherd SUBSTANCE ABUSE SERVICES DIRECTOR, ASSEMBLY ROOM SUPERVISOR Primary Care Provi jameel Neo Mcfadden SUBSTANCE ABUSE SERVICES DIRECTOR, ASSEMBLY ROOM SUPERVISOR Unavailable [phone] Allergies Active Allergy Reactions Criticality Noted Date [...] HR Take 60 mg by mouth daily. Active tamsulosin (FLOMAX) 0.4 MG Capsule Take [...] 5 mg by mouth 3 times daily. Active POTASSIUM CHLORIDE PO Take 1 Tablet by mouth daily. Active MAGNESIUM PO Take 1 Tablet by mouth daily. Active Active Problems Problem Noted Date Diagnosed Date Acute urinary retention 11/08/2024 Hypertensive urgency 11/08/2024 Sepsis OMAIRA (acute kidney injury) Ileus Cholecystitis Diarrhea Normocytic anemia Hypokalemia Polysubstance dependence Tobacco dependency Alcohol dependency Encounters Date Type Department Care Team Description 03/10/2025 Telephone [facility] [address] [place] [address] Andreea Joyner APRN, JAMAL Appointment ([facility] Remote Patient Monitoring Program medication optimization) 02/20/2025 Telephone [facility] [address] [place] [address] Loki Cardoso APRN, ASSEMBLY ROOM SUPERVISOR Need Order 02/20/2025 Nurse Triage [facility] [address] [place] [address] Liv Schaefer, RN Hypertension 02/16/2025 Nurse Triage [facility] [address] [place] [address] Deanna Lentz, [place] Hypertension ([facility] (Remote Patient Monitoring Program)/) 02/14/2025 Telephone [facility] [address] [place] [address] Neo Mcfadden APRN, CNP 02/10/2025 5:09 PM CDT - 02/10/2025 6:10 PM CDT Emergency [facility] [address] [place] [address] Yasmin Douglas APRN, CNP Complication of catheter Discharge Disposition: Discharged to home or Selfcare 02/10/2025 Travel 01/31/2025 Telephone [facility] [address] [place] [address] Neo Mcfadden APRN, CNP catheter supplies from Last 3 Months Family History Medical History Relation Name Comments Bone Cancer Father Hypertension Father Lung Cancer Father brain tumor Father Chronic Obstructive Pulmonary Disease Mother Hypertension Mother generalized anxiety Mother Relation Name Status Comments Father Mother Social History Tobacco Use Types Packs/Day Years Used Date Smoking Tobacco: Every Day Cigarettes 1 26.7 Started: 1998 Passive Smoke Exposure: Current Tobacco Cessation:Ready to Q uit: No; Counseling Given: No Alcohol Use Standard Drinks/Week Comments Not Currently 0 (1 standard drink = 0.6 oz pure alcohol) Around a pint a day. last drink 5 weeks ago [facility] [employer] Answer Date Recorded In the past 12 months has [employer], gas, oil, or water [employer] threatened to shut off services in your home? Patient declined 11/08/2024 Social Connection and Isolation Panel Answer Date Recorded In a typical week, how many times do you talk on the phone with family, friends, or neighbors? Patient declined 11/08/2024 How often do you get togethe r with friends or relatives? Patient declined 11/08/2024 How often do you attend sabianist or orthodoxy serv ices? Patient declined 11/08/2024 Do you belong to any clubs o r organizations such as sabianist groups, unions, fraternal or athletic groups, or [...] medical care, and heating? Patient declined 11/08/2024 [facility] of Occupat ional Health - Occupational [...] were you homeless or living in a longterm (including now)? No 11/08/2024 Sexually Active Control [...] 02/10/2025 5:14 PM CDT Plan of Treatment Health Maintenance [...] Screening 11/09/2020 Immunochemical Fecal Occult Blood 11/09/2020 Influenza Immunization (#1) 2025 SARS-COV-2 Immunization ( season) 2025 Respiratory Syncytial Virus (RSV) Immunization (Adult) [...] age to complete this topic Insurance [facility] Advance Directives Documents on File Type Date Recorded Patient Crop Roller Expl anation Power of Agriculture Science Teacher for Health Care 2024 3:05 PM POA-HC, 10/31/2024 * Full Code (Latest Code Status on File) Date Activated Date Inactivated Comments 11/08/2024 9:33 PM CPR-Full Treatm ent: FULL ARREST: Attempt Resuscitation/CPR wit intubation and mechanical ventilation. PRE-ARREST: Use entire range of life support measures to stabilize the patient. Care Teams Marketing Communications Manager Relationship Specialty Start Date End Date Joellen Shepherd APRN, ASSEMBLY ROOM SUPERVISOR [address] [place] [address] PCP - General Advanced Practice Nurse 11/09/24 Neo Mcfadden APRN, ASSEMBLY ROOM SUPERVISOR [address] [place] [address] Nurse Practitioner Advanced Practice Nurse 12/22/24
--- OUTSIDE RECORDS SUMMARY | 2025-04-14 11:45 | XMS_ITS ---
Author Organization [facility] Address [address] [place] [address] Phone Care Team Providers Care Cork Grinder Name Role Phone Joellen Shepherd APRN, MEDICAL COLLECTIONS REPRESENTATIVE Primary Care Provi jameel Neo Mcfadden APRN, MEDICAL COLLECTIONS REPRESENTATIVE Unavailable [phone] [facility] Chronic Condition Monitoring Status:Enrolled (Active) Start date:02/09/2025 Enrollment date:02/09/2025 Related social drivers of health:Alcohol Use, Tobacco Use, Financial Resource Strain, Depression, Stress, Physical Activity, Food Insecurity, Transportation Needs, Utilities Continued Care and Services Coordination
[2025-04-14 12:24] LABS: NT Pro B Type Natriuretic Pept 1030 pg/mL (19.9-100)
[2025-04-14 13:03] LABS: Alanine Aminotransferase 18 U/L (6-35); Albumin Level 4.5 g/dL (3.5-5.1); Alkaline Phosphatase 84 U/L (38-126); Anion Gap 9 mmol/L (4-12); Aspartate Amino Transferase 21 U/L (14-36); Bilirubin,Total 0.3 mg/dL (0.2-1.3); Blood Urea Nitrogen 15 mg/dL (7-17); Calcium 9.4 mg/dL (8.4-10.2); Carbon Dioxide 29 mmol/L (22-30); Chloride 103 mmol/L (98-107); Estimated Glomerular Filt Rate 50; Glucose 97 mg/dL (65-110); Osmolality Calculated 292 mOsm/kg (285-295); Potassium 3.8 mmol/L (3.4-5.0); Sodium 141 mmol/L (137-145); Total Protein 7.2 g/dL (6.3-8.2)
== END 2025-04-14 11:23 | disposition home or self-care (01) ==
LOC: CHSLAB 11:23
PROVIDERS: Nurse Practitioner Family; PCP Nurse Practitioner Family; Visit Provider Nurse Practitioner Family
DX: N17.9 Acute kidney failure, unspecified (principal); I11.0 Hypertensive heart disease with heart failure
CPT/HCPCS: 36415; 80053; 83880

== ENCOUNTER 2025-06-22 14:13 | Outpatient (CLI) | payer OTHER, SELFPAY ==
--- NOTE | ~2025-06-22 | XR_ITS ---
XR lumbar spine min 4V Indication: M54.50 - Low back pain, unspecified Comparison: None Findings: Grade 1 anterolisthesis of L4 on L5, no fracture. Moderate loss of disc height at L4-5 and L5-S1. Soft tissues unremarkable Impression: No acute abnormality. Reviewed, dictated and finalized at location P. ECT CONTROLS SPECIALIST Impression: No acute abnormality.
--- NOTE | 2025-06-22 14:27 | ECG_ITS ---
Test Date: 2025-06-22 14:35:53 Measurements Intervals Bartlett Rate: 62 P: 78 WY: 121 QRS: 78 QRSD: 108 T: 87 QT: 458 QTc: 466 Interpretive Statements SINUS RHYTHM Compared to ECG 11/24/2024 17:20:18 Myocardial infarct finding now present Sinus tachycardia no longer present Short WY interval no longer present Left ventricular hypertrophy no longer present ST (T wave) deviation no longer present Electronically Signed On 06-22-2025 14:42:18 CIRCUIT BREAKER MECHANIC by Mor Au M.D.
[2025-06-22 14:28] LABS: Hematocrit 42.6 % (35.0-49.0); Hemoglobin 14.3 g/dL (12.0-15.0); Immature Granulocyte Percent A 0.5 % (0.0-0.0); Lymphocytes Absolute Auto 1.56 K/mm3 (1.10-4.50); Mean Corpuscular HGB Conc 33.6 g/dL (32-36); Mean Corpuscular Hemoglobin 30.4 pg (27.0-31.0); Mean Corpuscular Volume 90.4 fL (78.0-102.0); Nucleated Red Blood Cells Absolute Auto 0.00 K/mm3 (0.00-0.00); Nucleated Red Blood Cells Perc 0.0 % (0-0.0); Platelet Count Result 237 K/mm3 (150-420); Red Blood Count 4.71 M/mm3 (4.20-5.40); White Blood Count 6.4 K/mm3 (4.8-10.8)
--- OUTSIDE RECORDS SUMMARY | 2025-06-22 14:37 | XMS_ITS | Clinical Summary ---
Author Organization [facility] Address [address] [place] [address] Care Team Providers Care Platform Material Handling Supervisor Name Role Phone Joellen Shepherd NP Unavailable [phone] Joellen Shepherd NP Primary Care Provider [phone] Allergies Active Allergy Reactions Criticality Noted Date Comments Latex Unknown High 11/08/2024 Levofloxacin Itching,Unknown High 11/08/2024 Itching ears and throat Mupirocin Rash Medium 11/08/2024 Oxycodone Stomach upset,Itching Low 11/08/2024 Penicillins Anaphylaxis High 05/19/2025 Sulfa (Sulfonamide Antibiotics) Stomach upset,Nausea & Vomiting,Nausea only Low 11/08/2024 Medications cholecalciferol (VITAMIN D-3) 2000 unit tablet Take 25 tablets (50,000 Units total) by mouth once a week Active traZODone (DESYREL) 50 mg tablet Take 1 tablet (50 mg total) by mouth nightly Active vitamin b complex tablet Take 1 tablet by mouth daily Active ferrous sulfate 325 mg (65 mg of elemental iron) tabletIndications: Iron Deficiency Anemia Take 1 tablet (65 mg of elemental iron total) by mouth 3 (three) times a day with meals Active folic acid (FOLVITE) 1 mg tablet Take 1 tablet (1 mg total) by mouth daily Active furosemide (LASIX) 20 mg tablet Take 1 tablet (20 mg total) by mouth daily Active hydrOXYzine (ATARAX) 25 mg tablet Take 1 tablet (25 mg total) by mouth daily as needed for itching Active NIFEdipine (NIFEdipine CC) 30 mg 24 hr tablet Take 1 tablet (30 mg total) by mouth daily Active oxyBUTYnin (DITROPAN) 5 mg tablet Take 1 tablet (5 mg total) by mouth daily Active tamsulosin (FLOMAX) 0.4 mg extended release capsule Take 1 capsule (0.4 mg total) by mouth daily Active traMADol-acetamino phen (ULTRACET) 37.5-325 mg per tablet Take 1 tablet by mouth every 8 (eight) hours as needed for pain Active citalopram (CeleXA) 40 mg tablet Take 1 tablet (40 mg total) by mouth daily Active psyllium 0.52 gram capsule Take 1 capsule (0.52 g total) by mouth daily Active cephalexin (KEFLEX) 500 mg capsule Take 1 capsule (500 mg total) by mouth 2 (two) times a day 5 Active ondansetron ODT (ZOFRAN-ODT) 4 mg disintegrating tablet Take 1 tablet (4 mg total) by mouth every 6 (six) hours as needed 5 Active nitrofurantoin monohydrate (MACROBID) 100 mg capsule Take 1 capsule (100 mg total) by mouth 2 (two) times a day 5 Active Active Problems Problem Noted Date Diagnosed Date Anemia 05/17/2025 Depression 05/17/2025 Nicotine dependence 05/17/2025 Essential hypertension 05/17/2025 Generalized anxiety disorder 05/17/2025 Resolved Problems Problem Noted Date Diagnosed Date Resolved Date Congestive heart failure 05/17/202503/2025 COPD (chronic obstructive pulmonary disease) 05/17/2025 History of tonsillectomy 03/2025 History of endometrial ablation 05/17/2025 Encounters Date Type Department Care Team Description 06/12/2025 11:45 AM SALES REPRESENTATIVE PUBLICATIONS Office Visit [facility] Cardiology [address] [address] [address] [place] [address] Stalin Dueñas MD Essential hypertension (Primary Dx) 06/06/2025 1:00 PM CDT Ancillary Procedure [facility] Medical [facility] Cardiology at [address] [place] [address] Essential hypertension 05/19/2025 2:00 PM CDT Office Visit [facility] Medical [facility] Cardiology [address] [place] [address] [place], [place] [address] [address] Stalin Dueñas MD Essential hypertension (Primary Dx); Lipid screening 05/19/2025 Orders Only [facility] Cardiology [address] [place] [address] [place], [place] [address] [address] ProviderRacquel MD from Last 3 Months Surgical History Surgery Date Site/Laterality Comments TONSILLECTOMY ENDOMETRIAL ABLATION CHOANAL ADENIODECTOMY Medical History Medical History Date Comments History of endometrial ablation History of tonsillectomy H/O adenoidectomy Hypertension Family History Medical History Relation Name Comments Bone cancer Father Hypertension Father Lung cancer Father brain tumor Father COPD Mother Hypertension Mother generalized anxiety disorder Mother Relation Name Status Comments Father Mother Social History Tobacco Use Types Packs/Day Years Used Date Smoking Tobacco: Every Day Cigarettes 0.5 33.1 Started: 05/17/1992 Tobacco Cessation:Ready to Q uit: Not Asked; Counseling Given: Not Answered Comments Unknown Sex and Gender Information Value Date Recorded Sex Assigned at Not on file Legal Sex Female 6:12 PM SALES REPRESENTATIVE PUBLICATIONS Gender Identity Not on file Sexual Orientation Not on file Last Filed Vital Signs Vital Sign Reading Time Taken Comments Blood Pressure 144/80 06/12/2025 11:50 AM SALES REPRESENTATIVE PUBLICATIONS Pulse 82 06/12/2025 11:50 AM SALES REPRESENTATIVE PUBLICATIONS Temperature - - Respiratory Rate - - Oxygen Saturation 99% 06/12/2025 11:50 AM SALES REPRESENTATIVE PUBLICATIONS Inhaled Oxygen Concentration - - Weight 59.9 kg (132 lb) 06/12/2025 11:50 AM SALES REPRESENTATIVE PUBLICATIONS Height 165.1 cm (5' 5) 06/12/2025 11:50 AM SALES REPRESENTATIVE PUBLICATIONS Body Mass Index 21.97 06/12/2025 11:50 AM SALES REPRESENTATIVE PUBLICATIONS Plan of Treatment Health Maintenance Due Date Last Done Comments Breast Cancer Screening-Mammogram 1975 Cervical Cancer Screening 1975 Depression Screening 1975 Hepatitis C Screening 1975 Hepatitis B Screening 11/09/1993 Regular Well Visit/Exam 18-64 11/09/1993 Pneumococcal vaccine <65 (1 of 2 - PCV) 11/09/1994 Colon Cancer Screening-Colonoscopy 03/22/20222011 Influenza Vaccine (#1) 2025 DTaP/Tdap/Td Vaccine (3 - Td or Tdap) 09/18/203104/2022, 06/01/2021 Procedures Procedure Name Priority Date/Time Associated Diagnosis Comments TRANSTHORACIC ECHO (TTE) COMPLETE W DOPPLER/CF WO CONTRAST Routine 06/06/2025 1:32 PM CDT Essential hypertension POCT LIPID PANEL Routine 05/19/2025 2:06 PM CDT Lipid screening ELECTROCARDIOGRAM REPORT Routine 05/19/2025 Essential hypertension from Last 3 Months Results * TRANSTHORACIC ECHO (TTE) COMPLETE W DOPPLER/CF WO CONTRAST (06/06/2025 1:32 PM CDT) Estimated EF >75 % CONS SCIMAGE EF Mod BP 68 % CONS SCIMAGE Anatomical Region Laterality Modality Ultrasound 06/06/2025 1:13 PM CDT Narrative 06/06/2025 4:54 PM CDT [facility] Cardiology [address] [facility] [address], [address], [place] [address] P:[phone] P:[phone] Echocardiographic Report Patient Name: CHRISTIAN BENNETT : 1975 Study Date: 06/06/2025 1:13:59 PM Sex: F Etl Software Engineer: LESLEY Location: [facility] Ref Provider: STALIN DUEÑAS Height(Cm): 165 BSA: 1.63 Weight(Kg): 58.1 Heart Rate: 67 BP: 148 / 80 Quality: Good Order Provider: STALIN DUEÑAS PROCEDURES: Echocardiographic Report: Transthoracic echocardiogram with complete 2D, M-Mode, and color Doppler examination. With Strain Analysis. INDICATIONS: I10 Essential (primary) hypertension. MEASUREMENTS: 2D/MM Value Range Doppler Value Range EF Mod BP 68 % [ 54 - 74 ] EUSEBIO Vmax 2.61 cm2 [ 2.00 - 4.00 ] EF Teich MM 71 % [ 54 - 74 ] AV Mean PG 7 mmHg Estimated EF >75 % AV Peak Farooq 1.72 m/s [ 1.00 - 1.70 ] LV GLS -14.24 % AV Peak PG 12 mmHg LVIDd 2D 4.04 cm [ 3.80 - 5.20 ] AV VTI 39.57 cm LVIDd MM 5.22 cm [ 3.80 - 5.20 ] LVOT Diam 2.01 cm [ 1.70 - 2.10 ] LVIDs 2D 2.32 cm [ 2.20 - 3.50 ] LVOT Peak Farooq 1.42 m/s [ 0.70 - 1.10 ] LVIDs MM 3.10 cm [ 2.20 - 3.50 ] LVOT VTI 34.87 cm LVPWd 2D 1.44 cm [ 0.60 - 0.90 ] MV E Peak Farooq 0.71 m/s [ 0.60 - 1.30 ] LVPWd MM 1.09 cm [ 0.60 - 0.90 ] MV A Peak Farooq 0.71 m/s [ 1.00 - 1.20 ] IVSd 2D 1.26 cm [ 0.60 - 0.90 ] MV Decel Time 225 msec [ 104 - 258 ] IVSd MM 1.26 cm [ 0.60 - 0.90 ] PV Peak Farooq 0.94 m/s [ 0.40 - 0.80 ] LA Dimension MM 2.62 cm [ 2.70 - 3.80 ] TR Peak Farooq 2.50 m/s [ 1.00 - 2.80 ] AoR Diam MM 2.98 cm [ 2.70 - 3.30 ] TR Peak PG 25 mmHg LA Volume 48.90 ml [ 22.00 - 52.00 ] RVSP 33.00 mmHg [ 10.00 - 36.00 ] LA Volume Index 30 cc/m2 [ 16 - 28 ] RV S` 0.20 m/s ACS MM 2.09 cm Lateral E` 0.05 m/s [ 0.10 - 0.15 ] RA Volume 22.12 ml Septal E` 0.06 m/s [ 0.08 - 0.15 ] E` 0.05 m/s E/E` 13 Tapse 2.60 cm [ 1.71 - 5.00 ] 2D/MM Value Range Doppler Value Range - FINDINGS: Interpretation Site: Exam was interpreted at [facility]. Left Ventricle: Normal left ventricular size. Moderate to severe concentric left ventricular hypertrophy. Hyperdynamic left ventricular function. No focal wall motion abnormalities. Impaired diastolic relaxation Grade I. Ejection Fraction is visually estimated to be >75 %. Global Longitudinal Strain is -14 %. GLS is abnormal. Right Ventricle: Normal right ventricular size. Normal right ventricular systolic function. Left Atrium: Left atrial size is within upper limits of normal. Right Atrium: The right atrium is normal in size. Atrial Septum: Thin and hypermobile atrial septum. Mitral Valve: Normal appearance of the mitral valve. Mild mitral valve regurgitation. There is no hemodynamically significant mitral stenosis by Doppler. Aortic Valve: No evidence of hemodynamically significant aortic stenosis by Doppler. Aortic cusps appear mildly sclerotic. Probable trileaflet aortic valve, although not all leaflets are visualized. Trace aortic valve regurgitation. Tricuspid Valve: Normal appearance of the tricuspid valve. Normal right ventricular systolic pressure. Estimated peak RVSP is 33 mmHg. Mild tricuspid regurgitation. Pulmonic Valve: Normal appearance of the pulmonic valve. No pulmonic stenosis. Mild pulmonic regurgitation. Pericardium: Normal pericardium with no significant pericardial effusion. Aorta: Normal aortic root. IVC: Normal size and normal respiratory collapse consistent with normal right atrial pressure (<5 mmHg). CONCLUSIONS: Normal left ventricular size. Moderate to severe concentric left ventricular hypertrophy. Hyperdynamic left ventricular function. No focal wall motion abnormalities. Impaired diastolic relaxation Grade I. Ejection Fraction is visually estimated to be >75 %. Global Longitudinal Strain is -14 %. GLS is abnormal. Mild mitral valve regurgitation. Mild tricuspid regurgitation. Mild pulmonic regurgitation. Normal sinus rhythm. Electronically Signed By: Delta Ma MD 06/06/2025 4:54:13 PM CDT Procedure Note Delta Ma MD - 06/06/2025 [facility] Cardiology [address], [address], [place] [address] P:[phone] P:[phone] Echocardiographic Report Patient Name: CHRISTIAN BENNETT : 1975 Study Date: 06/06/2025 1:13:59 PM Sex: F Etl Software Engineer: LESLEY Location: [facility] Ref Provider: STALIN DUEÑAS Height(Cm): 165 BSA: 1.63 Weight(Kg): 58.1 Heart Rate: 67 BP: 148 / 80 Quality: Good Order Provider: STALIN DUEÑAS PROCEDURES: Echocardiographic Report: Transthoracic echocardiogram with complete 2D, M-Mode, and color Dopplerexamination. With Strain Analysis. INDICATIONS: I10 Essential (primary) hypertension. MEASUREMENTS: 2D/MM Value Range Doppler ValueRange EF Mod BP 68 % [ 54 - 74 ] EUSEBIO Vmax 2.61cm2 [ 2.00 - 4.00 ] EF Teich MM 71 % [ 54 - 74 ] AV Mean PG 7mmHg Estimated EF >75 % AV Peak Farooq 1.72m/s [ 1.00 - 1.70 ] LV GLS -14.24 % AV Peak PG 12mmHg LVIDd 2D 4.04 cm [ 3.80 - 5.20 ] AV VTI 39.57cm LVIDd MM 5.22 cm [ 3.80 - 5.20 ] LVOT Diam 2.01cm [ 1.70 - 2.10 ] LVIDs 2D 2.32 cm [ 2.20 - 3.50 ] LVOT Peak Farooq 1.42m/s [ 0.70 - 1.10 ] LVIDs MM 3.10 cm [ 2.20 - 3.50 ] LVOT VTI 34.87cm LVPWd 2D 1.44 cm [ 0.60 - 0.90 ] MV E Peak Farooq 0.71m/s [ 0.60 - 1.30 ] LVPWd MM 1.09 cm [ 0.60 - 0.90 ] MV A Peak Farooq 0.71m/s [ 1.00 - 1.20 ] IVSd 2D 1.26 cm [ 0.60 - 0.90 ] MV Decel Time 225msec [ 104 - 258 ] IVSd MM 1.26 cm [ 0.60 - 0.90 ] PV Peak Farooq 0.94m/s [ 0.40 - 0.80 ] LA Dimension MM 2.62 cm [ 2.70 - 3.80 ] TR Peak Farooq 2.50m/s [ 1.00 - 2.80 ] AoR Diam MM 2.98 cm [ 2.70 - 3.30 ] TR Peak PG 25mmHg LA Volume 48.90 ml [ 22.00 - 52.00 ] RVSP 33.00mmHg [ 10.00 - 36.00 ] LA Volume Index 30 cc/m2 [ 16 - 28 ] RV S` 0.20m/s ACS MM 2.09 cm Lateral E` 0.05m/s [ 0.10 - 0.15 ] RA Volume 22.12 ml Septal E` 0.06m/s [ 0.08 - 0.15 ] E` 0.05 m/s E/E` 13 Tapse 2.60 cm [ 1.71 - 5.00 ] 2D/MM Value Range Doppler ValueRange - FINDINGS: Interpretation Site: Exam was interpreted at [facility]. Left Ventricle: Normal left ventricular size. Moderate to severe concentric leftventricular hypertrophy. Hyperdynamic left ventricular function. No focal wall motionabnormalities. Impaired diastolic relaxation Grade I. Ejection Fraction is visually estimated regina >75 %. Global Longitudinal Strain is -14 %. GLS is abnormal. Right Ventricle: Normal right ventricular size. Normal right ventricular systolicfunction. Left Atrium: Left atrial size is within upper limits of normal. Right Atrium: The right atrium is normal in size. Atrial Septum: Thin and hypermobile atrial septum. Mitral Valve: Normal appearance of the mitral valve. Mild mitral valve regurgitation.There is no hemodynamically significant mitral stenosis by Doppler. Aortic Valve: No evidence of hemodynamically significant aortic stenosis by Doppler.Aortic cusps appear mildly sclerotic. Probable trileaflet aortic valve, although notall leaflets are visualized. Trace aortic valve regurgitation. Tricuspid Valve: Normal appearance of the tricuspid valve. Normal right ventricularsystolic pressure. Estimated peak RVSP is 33 mmHg. Mild tricuspid regurgitation. Pulmonic Valve: Normal appearance of the pulmonic valve. No pulmonic stenosis. Mildpulmonic regurgitation. Pericardium: Normal pericardium with no significant pericardial effusion. Aorta: Normal aortic root. IVC: Normal size and normal respiratory collapse consistent with normal rightatrial pressure (<5 mmHg). CONCLUSIONS: Normal left ventricular size. Moderate to severe concentric leftventricular hypertrophy. Hyperdynamic left ventricular function. No focal wall motionabnormalities. Impaired diastolic relaxation Grade I. Ejection Fraction is visually estimated regina >75 %. Global Longitudinal Strain is -14 %. GLS is abnormal. Mild mitral valve regurgitation. Mild tricuspid regurgitation. Mild pulmonic regurgitation. Normal sinus rhythm. Electronically Signed By: Delta Ma MD 06/06/2025 4:54:13 PM CDT Stalin Dueñas MD CV ECHO PROCEDURES Final Result * POCT lipid panel (05/19/2025 2:06 PM CDT) Cholesterol, POC 157 <200 MG/DL HDL, POC 42 >=40 mg/dL Triglycerides, POC 102 <=149 mg/dL LDL Cholesterol POC 94 <=129 mg/dL Chol/HDL Ratio, POC 3.7 NONE Non-HDL Cholesterol, POC 115 NONE mg/dL Cholesterol Total, POC 157 30 - 199 mg/dL Capillary blood 05/19/2025 2 :06 PM CDT Stalin Dueñas MD POINT OF CARE TEST ORDER AMPARO Final Result * Electrocardiogram Report (05/19/2025) 05/19/2025 Stalin Dueñas MD ECG ORDERABLES Edited R esult - Final from Last 3 Months Insurance [facility] [facility] Care Teams Platform Material Handling Supervisor Relationship Specialty Start Date End Date Joellen Shepherd NP [address] [place] [address] PCP - General Nurse Practitioner 05/19/25 Joellen Shepherd NP [address] [place] [address] Nurse Practitioner 02/06/25
--- OUTSIDE RECORDS SUMMARY | 2025-06-22 14:37 | XMS_ITS | Clinical Summary ---
Author Organization [facility] Address [address] [place] [address] Care Team Providers Care Tattoo Identifier Name Role Phone GregoryMilan lepe Primary Care Provider [phone] Allergies Active Allergy Reactions Criticality Noted Date [...] Encounters Date Type Department Care Team Description 04/19/2025 7:04 PM CDT - 04/19/2025 11:59 PM CDT Hospital Encounter [facility] [address] [place] [address] Tory Bryant FNP Discharge Disposition: Home or Self Care (Routine Discharge) 04/19/2025 Orders Only [facility] [address] [place] [address] Troy Bryant FNP from Last 3 Months Social History Tobacco [...] HPV 11/09/2005 Mammogram Screening 2015 COVID-19 Vaccine (2024-2 6 season) 2025 Influenza Adult (#1) 2025 Hepatitis A Vaccines Aged Out No long er eligible based on patient's age to complete this topic Meningococcal B Vaccine Aged Out No l onger eligible based on patient's age to complete this topic Meningococcal Vaccine Aged Out No benson marguerite eligible based on patient's age to complete this topic RSV Immunizations Under 20 Months Aged Out No longer eligible based on patient's age to complete this topic Procedures Procedure Name Priority Date/Time Associated Diagnosis Comments HC CULTURE URINE W/COLONY CT Routine 04/19/2025 12:00 PM CDT Unspecified symptoms and signs involving the genitourinary system HC URINALYSIS AUTO W/MICRO Routine 04/19/2025 12:00 PM CDT Unspecified symptoms and signs involving the genitourinary system from Last 3 Months Results * (ABNORMAL) URINALYSIS (04/19/2025 12:00 PM CDT) COLOR (U) YELLOW 04/19/2025 7:17 PM CDT [facility] TRANSPARENCY CLOUDY 04/19/2025 7:17 PM CDT [facility] SPECIFIC GRAVITY (U) 1.025 1.002 - 1.035 04/19/2025 7:17 PM CDT [facility] U PH 5.5 5 - 8 04/19/2025 7:17 PM CDT [facility] PROTEIN RANDOM (U) NEGATIVE NEGATIVE 04/19/2025 7:17 PM CDT [facility] GLUCOSE (U) NEGATIVE NEGATIVE MG/DL 04/19/2025 7:17 PM CDT [facility] KETONES MG/DL (U) NEGATIVE NEGATIVE 04/19/2025 7:17 PM CDT [facility] BILIRUBIN (U) NEGATIVE NEGATIVE 04/19/2025 7:17 PM CDT [facility] BLOOD (U) NEGATIVE NEGATIVE 04/19/2025 7:17 PM CDT [facility] NITRITES NEGATIVE NEGATIVE 04/19/2025 7:17 PM CDT [facility] UROBILINOGEN NORMAL 0 - 1 EU/DL 04/19/2025 7:17 PM CDT [facility] LEUKOCYTES (U) 2+(A) NEGATIVE 04/19/2025 7:17 PM CDT [facility] RBC/HPF <1 0 - 3 /HPF 04/19/2025 7:17 PM CDT [facility] WBC/HPF 10(H) 0 - 6 /HPF 04/19/2025 7:17 PM CDT [facility] BACTERIA (U) PRESENT /HPF 04/19/2025 7:17 PM CDT [facility] SQUAMOUS EPITHELIALS 4 04/19/2025 7:17 PM CDT [facility] 04/19/2025 12:0 0 PM CDT Tory Bryant [facility] URINE ORDERABLES Final Resu lt [facility] [address] [place] [address], [id number] * URINE BACTERIA CULTURE (04/19/2025 12:00 PM CDT) SPEC DESCRIPTION URINE, UNSPECIFIED 04/19/2025 7:06 PM CDT [facility] SPECIAL REQUESTS NO SPECIAL REQUEST 04/19/2025 7:06 PM CDT [facility] CULTURE RESULT >50,000 TO 99,999 CFU/mL ESCHERICHIA COLI 04/22/2025 7:26 AM CDT [facility] URINE SPECIMEN / Unknown 04/19/2025 12:00 PM CDT 04/19/2025 7:34 PM CDT Narrative Organism Antibiotic Method Susceptibility Escherichia coli AMPICILLIN MACHELLE (VITEK) Sensitive Escherichia coli AMOXICILLIN/CLAVULANIC A MACHELLE (VITEK) Sensitive Escherichia coli AZTREONAM MACHELLE (VITEK) Sensitive Escherichia coli CEFEPIME MACHELLE (VITEK) Sensitive Escherichia coli CEFTRIAXONE MACHELLE (VITEK) Sensitive Escherichia coli CEFAZOLIN MACHELLE (VITEK) Sensitive Escherichia coli CIPROFLOXACIN MACHELLE (VITEK) Sensitive Escherichia coli ESBL MACHELLE (VITEK) NEG: Sensitive Escherichia coli ERTAPENEM MACHELLE (VITEK) Sensitive Escherichia coli NITROFURANTOIN MACHELLE (VITEK) Resistant Escherichia coli GENTAMICIN MACHELLE (VITEK) Sensitive Escherichia coli IMIPENEM MACHELLE (VITEK) Sensitive Escherichia coli LEVOFLOXACIN MACHELLE (VITEK) Sensitive Escherichia coli MEROPENEM MACHELLE (VITEK) Sensitive Escherichia coli PIPERACILLIN/TAZOBACTAM MACHELLE (VITEK) Sensitive Escherichia coli TRIMETH-SULFAMETH. MACHELLE (VITEK) Sensitive Escherichia coli TETRACYCLINE MACHELLE (VITEK) Sensitive Tory Bryant WIND TECHNICIAN MICROBIOLOGY - GENERAL ORDE RABLES Final Result [facility] [address] [place] [address], [id number] from Last 3 Months Insurance [employer] [facility] MEDICA[employer] Advance Directives * Full Code (Latest Code Status on File) Date Activated Date Inactivated Comments 12/05/2024 1:34 PM Care Teams Tattoo Identifier Relationship Specialty Start Date End Date Milan Heredia DO [address] [place] [address] PCP - General FAMILY PRACTICE 12/01/24
--- OUTSIDE RECORDS SUMMARY | 2025-06-22 14:37 | XMS_ITS ---
Author Organization Unknown Address [address] [place] [phone] Phone Care Team Providers Care Parking Station Attendant Name Role Phone MYRNA JACOB Attending Unavailable CHETNA MEDINA STATOR WINDER Primary Unavailable Social History Type Status Start Date End Date Code Code Syst em Sex Female Hospital Discharge Instructions Should you have any questions prior to discharge, please contact a member of your healthcare team. If you have left the hospital and have any questions, please contact your primary care physician. Reason For Referral No Data Found Plan of Treatment No Data Found Encounters Encounter Diagnosis Start Date Code Code Sys tem Retention of urine 06/01/2025 [id number] SNOMED-CT Personal Care Team Section Performer Name Performer Role Active Date Inactive Da CAROL Gong PCP - Primary care physician 2025-05
--- OUTSIDE RECORDS SUMMARY | 2025-06-22 14:38 | XMS_ITS | Clinical Summary ---
Author Organization [facility] Address [address] [place] [address] Phone Care Team Providers Care Department Chair Name Role Phone Joellen Shepherd CONTRACT CONSULTANT, SIZE CHANGER Primary Care Provi jameel Neo Mcfadden CONTRACT CONSULTANT, SIZE CHANGER Unavailable [phone] Allergies Active Allergy Reactions Criticality Noted Date [...] Hypokalemia Polysubstance dependence Tobacco dependency Alcohol dependency Family History Medical History Relation Name Comments Bone Cancer Father Hypertension Father Lung Cancer Father brain tumor Father Chronic Obstructive Pulmonary Disease Mother Hypertension Mother generalized anxiety Mother Relation Name Status Comments Father Mother Social History Tobacco Use Types Packs/Day Years Used Date Smoking Tobacco: Every Day Cigarettes 1 26.9 Started: 1998 Passive Smoke Exposure: Current Tobacco Cessation:Ready to Q uit: No; Counseling Given: No Alcohol Use Standard Drinks/Week Comments Not Currently 0 (1 standard drink = 0.6 oz pure alcohol) Around a pint a day. last drink 5 weeks ago [facility] Utilities Answer Date Recorded In the past 12 months has [employer], [employer], or water [employer] threatened to shut off services in your home? Patient declined 11/08/2024 Social Connection and Isolation Panel Answer Date Recorded In a typical week, how many times do you talk on the phone with family, friends, or neighbors? Patient declined 11/08/2024 How often do you get togethe r with friends or relatives? Patient declined 11/08/2024 How often do you attend samaritan or catholic serv ices? Patient declined 11/08/2024 Do you belong to any clubs o r organizations such as samaritan groups, unions, fraternal or athletic groups, or [...] medical care, and heating? Patient declined 11/08/2024 [facility] - Occupational Stress Questionnaire Answer Date Recorded [...] Influenza Immunization (#1) 2025 SARS-COV-2 Immunization ( - season) 2025 Respiratory Syncytial Virus (RSV) Immunization [...] age to complete this topic Insurance MEDICAID [facility] Advance Directives Documents on File Type Date Recorded Patient Leasing Representative Expl anation Power of Firearms Specialist for Health Care 2024 3:05 PM POA-HC, 10/31/2024 * Full Code (Latest Code Status on File) Date Activated Date Inactivated Comments 11/08/2024 9:33 PM CPR-Full Treatm ent: FULL ARREST: Attempt Resuscitation/CPR wit intubation and mechanical ventilation. PRE-ARREST: Use entire range of life support measures to stabilize the patient. Care Teams Department Chair Relationship Specialty Start Date End Date Joellen Shepherd APRN, SIZE CHANGER [address] [place] [address] PCP - General Advanced Practice Nurse 11/09/24 Neo Mcfadden APRN, SIZE CHANGER [address] [place] [address] Nurse Practitioner Advanced Practice Nurse 12/22/24
--- OUTSIDE RECORDS SUMMARY | 2025-06-22 14:38 | XMS_ITS ---
Author Organization [facility] Address [address] [place] [address] Phone Care Team Providers Care Greenhouse Grower Name Role Phone Joellen Shepherd APRN, TRACTOR DRIVER TEAMSTER Primary Care Provi jameel Neo Mcfadden APRN, TRACTOR DRIVER TEAMSTER Unavailable [phone] [place] Chronic Condition Monitoring Status:Enrolled (Active) Start date:02/09/2025 Enrollment date:02/09/2025 Related social drivers of health:Alcohol Use, Tobacco Use, Financial Resource Strain, Depression, Stress, Physical Activity, Food Insecurity, Transportation Needs, Utilities Continued Care and Services Coordination
[2025-06-22 14:43] LABS: Alanine Aminotransferase 28 U/L (6-35); Albumin Level 4.4 g/dL (3.5-5.1); Alkaline Phosphatase 93 U/L (38-126); Anion Gap 9 mmol/L (4-12); Aspartate Amino Transferase 25 U/L (14-36); Blood Urea Nitrogen 20 mg/dL (7-17); Calcium 8.8 mg/dL (8.4-10.2); Carbon Dioxide 26 mmol/L (22-30); Chloride 108 mmol/L (98-107); Estimated Glomerular Filt Rate 55; Glucose 110 mg/dL (65-110); Magnesium 2.1 mg/dL (1.6-2.3); Osmolality Calculated 299 mOsm/kg (285-295); Potassium 3.7 mmol/L (3.4-5.0); Sodium 143 mmol/L (137-145); Total Protein 6.9 g/dL (6.3-8.2)
[2025-06-27 13:37] LABS: Bilirubin,Total 0.3 mg/dL (0.2-1.3)
== END 2025-06-22 14:14 | disposition home or self-care (01) ==
LOC: CHSLAB 14:14
PROVIDERS: PCP Nurse Practitioner Family; Visit Provider Nurse Practitioner Family
DX: I10 Essential (primary) hypertension (principal); N17.9 Acute kidney failure, unspecified; I16.1 Hypertensive emergency; E83.42 Hypomagnesemia; Z79.899 Other long term (current) drug therapy; M54.50 Low back pain, unspecified; I21.3 ST elevation (STEMI) myocardial infarction of unspecified site
CPT/HCPCS: 36415; 72110; 80053; 82306; 83735; 85025; 93005

== ENCOUNTER 2025-07-05 11:28 | Outpatient (CLI) | payer OTHER, SELFPAY ==
--- NOTE | ~2025-07-05 | XR_ITS ---
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 Technique: 3 view. Findings: Moderate fecal content, no dilated bowel loops No free air. No abnormal calcifications No acute osseous abnormality. Impression: 1. No acute abnormality. Reviewed, dictated and finalized at location P. DOZER OPERATOR Impression: 1. No acute abnormality.
--- OUTSIDE RECORDS SUMMARY | 2025-07-05 12:10 | XMS_ITS | Clinical Summary ---
Author Organization [facility] Address [address] [place] [address] Care Team Providers Care Varnish Supervisor Name Role Phone GregoryMilan lepe Primary Care Provider [phone] Allergies Active Allergy Reactions Criticality Noted Date [...] - 04/19/2025 11:59 PM CDT Hospital Encounter [facility] [address] [place] [address] Tory Bryant FNP Discharge Disposition: Home or Self Care (Routine Discharge) 04/19/2025 Orders Only [facility] [address] [place] [address] Tory Bryant FNP from Last 3 Months Social [...] COLOR (U) YELLOW 04/19/2025 7:17 PM CDT [facility] TRANSPARENCY CLOUDY 04/19/2025 7:17 PM CDT [facility] SPECIFIC GRAVITY (U) 1.025 1.002 - 1.035 04/19/2025 7:17 PM CDT [facility] U PH 5.5 5 - 8 04/19/2025 7:17 PM CDT [facility] PROTEIN RANDOM (U) NEGATIVE NEGATIVE 04/19/2025 7:17 PM CDT [facility] GLUCOSE (U) NEGATIVE NEGATIVE MG/DL 04/19/2025 7:17 PM CDT [facility] KETONES MG/DL (U) NEGATIVE NEGATIVE 04/19/2025 7:17 PM CDT [facility] BILIRUBIN (U) NEGATIVE NEGATIVE 04/19/2025 7:17 PM CDT [facility] BLOOD (U) NEGATIVE NEGATIVE 04/19/2025 7:17 PM CDT [facility] NITRITES NEGATIVE NEGATIVE 04/19/2025 7:17 PM CDT [facility] UROBILINOGEN NORMAL 0 - 1 EU/DL 04/19/2025 7:17 PM CDT [facility] LEUKOCYTES (U) 2+(A) NEGATIVE 04/19/2025 7:17 PM CDT [facility] RBC/HPF <1 0 - 3 /HPF 04/19/2025 7:17 PM CDT [facility] WBC/HPF 10(H) 0 - 6 /HPF 04/19/2025 7:17 PM CDT [facility] BACTERIA (U) PRESENT /HPF 04/19/2025 7:17 PM CDT [facility] SQUAMOUS EPITHELIALS 4 04/19/2025 7:17 PM CDT [facility] 04/19/2025 12:0 0 PM CDT Tory Bryant [facility] URINE ORDERABLES Final Resu lt [facility] [address] [place] [address], [id number] * URINE BACTERIA CULTURE (04/19/2025 12:00 PM CDT) SPEC DESCRIPTION URINE, UNSPECIFIED 04/19/2025 7:06 PM CDT [facility] SPECIAL REQUESTS NO SPECIAL REQUEST 04/19/2025 7:06 PM CDT [facility] CULTURE RESULT >50,000 TO 99,999 CFU/mL ESCHERICHIA COLI 04/22/2025 7:26 AM CDT [facility] URINE SPECIMEN / Unknown 04/19/2025 12:00 [...] coli TETRACYCLINE MACHELLE (VITEK) Sensitive Tory Bryant PHYSICS TUTOR MICROBIOLOGY - GENERAL ORDE RABLES Final Result [facility] [address] [place] [address], [id number] from Last 3 Months Insurance [facility] MEDICAID Advance Directives * Full Code (Latest Code Status on File) Date Activated Date Inactivated Comments 12/05/2024 1:34 PM Care Teams Varnish Supervisor Relationship Specialty Start Date End Date Milan Heredia DO [address] [place] [address] PCP - General FAMILY PRACTICE 12/01/24
--- OUTSIDE RECORDS SUMMARY | 2025-07-05 12:10 | XMS_ITS | Clinical Summary ---
Author Organization [facility] Address [address] [place] [address] Care Team Providers Care Operators School Manager Name Role Phone Joellen Shepherd NP Unavailable [phone] Joellen Shepherd NP Primary Care Provider [phone] Allergies Active Allergy Reactions Criticality Noted Date [...] Department Care Team Description 06/12/2025 11:45 AM PROGRAM CHECKER Office Visit [facility] Cardiology [address] [address] [address] [place] [address] Stalin Dueñas MD Essential hypertension (Primary Dx) 06/06/2025 1:00 PM CDT Ancillary Procedure [facility] Cardiology at [address] [place] [address] Essential hypertension 05/19/2025 2:00 PM CDT Office Visit [facility] Cardiology [address] [place] [address] [place], [place] [address] [address] Stalin Dueñas MD Essential hypertension (Primary Dx); Lipid screening 05/19/2025 Orders Only [facility] Cardiology [address] [place] [address] [place], [place] [address] [place] [address] ProviderRacquel MD from Last 3 Months [...] on file Legal Sex Female 6:12 PM PROGRAM CHECKER Gender Identity Not on file Sexual Orientation Not on file Last Filed Vital Signs Vital Sign Reading Time Taken Comments Blood Pressure 144/80 06/12/2025 11:50 AM PROGRAM CHECKER Pulse 82 06/12/2025 11:50 AM PROGRAM CHECKER Temperature - - Respiratory Rate - - Oxygen Saturation 99% 06/12/2025 11:50 AM PROGRAM CHECKER Inhaled Oxygen Concentration - - Weight 59.9 kg (132 lb) 06/12/2025 11:50 AM PROGRAM CHECKER Height 165.1 cm (5' 5) 06/12/2025 11:50 AM PROGRAM CHECKER Body Mass Index 21.97 06/12/2025 11:50 AM PROGRAM CHECKER Plan of Treatment Health Maintenance Due Date [...] PM CDT Narrative 06/06/2025 4:54 PM CDT [facility] Cardiology [address] [facility], [address], [place] [address] P:[phone] P:[phone] Echocardiographic Report Patient Name: CHRISTIAN BENNETT : 1975 Study Date: 06/06/2025 1:13:59 PM Sex: F Clinical Laboratory Scientist: LESLEY Location: [facility] Ref Provider: STALIN DUEÑAS [...] FINDINGS: Interpretation Site: Exam was interpreted at [facility]. Left Ventricle: Normal left ventricular size. Moderate [...] Group Cardiology [address], [address], [place] [address] P:[phone] P:[phone] Echocardiographic Report Patient Name: CHRISTIAN BENNETT : 1975 Study Date: 06/06/2025 1:13:59 PM Sex: F Clinical Laboratory Scientist: LESLEY Location: [facility] Ref Provider: STALIN DUEÑAS [...] FINDINGS: Interpretation Site: Exam was interpreted at [facility]. Left Ventricle: Normal left ventricular size. Moderate [...] Final from Last 3 Months Insurance [employer] [facility] Care Teams Operators School Manager Relationship Specialty Start Date End Date Joellen Shepherd NP [address] [place] [address] PCP - General Nurse Practitioner 05/19/25 Joellen Shepherd NP [address] [place] [address] Nurse Practitioner 02/06/25
--- OUTSIDE RECORDS SUMMARY | 2025-07-05 12:11 | XMS_ITS | Clinical Summary ---
Author Organization [facility] Address [address] [place] [address] Phone Care Team Providers Care Head Baggage Porter Name Role Phone Joellen Shepherd BRAND MGR, HEREDITARY CANCER PROGRAM COORDINATOR Primary Care Provi jameel Neo Mcfadden BRAND MGR, HEREDITARY CANCER PROGRAM COORDINATOR Unavailable Allergies Active Allergy Reactions Criticality Noted [...] a day. last drink 5 weeks ago [facility] Utilities Answer Date Recorded In the past 12 months has [employer], [employer], or water [employer] threatened to shut off services in your home? Patient declined 11/08/2024 Social Connection and Isolation Panel Answer Date Recorded In a typical week, how many times do you talk on the phone with family, friends, or neighbors? Patient declined 11/08/2024 How often do you get togethe r with friends or relatives? Patient declined 11/08/2024 How often do you attend [employer] or islam serv ices? Patient declined 11/08/2024 Do you [...] heating? Patient declined 11/08/2024 [facility] - Occupational Stress Questionnaire Answer Date Recorded [...] any time in the past 12 m [facility], were you homeless or living in a fpc (including now)? No 11/08/2024 Sexually Active Control [...] age to complete this topic Insurance MEDICAID [facility] Advance Directives Documents on File Type Date Recorded Patient Marketing Account Manager Expl anation Power of [address] Stenographer for Health Care 2024 3:05 PM POA-HC, 10/31/2024 * Full Code (Latest Code Status on File) Date Activated Date Inactivated Comments 11/08/2024 9:33 PM CPR-Full Treatm ent: FULL ARREST: Attempt Resuscitation/CPR wit intubation and mechanical ventilation. PRE-ARREST: Use entire range of life support measures to stabilize the patient. Care Teams Head Baggage Porter Relationship Specialty Start Date End Date Joellen Shepherd APRN, HEREDITARY CANCER PROGRAM COORDINATOR [address] [place] [address] PCP - General Advanced Practice Nurse 11/09/24 Neo Mcfadden APRN, HEREDITARY CANCER PROGRAM COORDINATOR [address] [place] [address] Nurse Practitioner Advanced Practice Nurse 12/22/24
--- OUTSIDE RECORDS SUMMARY | 2025-07-05 12:11 | XMS_ITS ---
Author Organization [facility] Address [address] [place] [address] Phone Care Team Providers Care Supervisor Ticket Sales Name Role Phone Joellen Shepherd APRN, SLIP COVER SEAMSTRESS Primary Care Provi jameel Neo Mcfadden APRN, SLIP COVER SEAMSTRESS Unavailable [phone] [place] Chronic Condition Monitoring Status:Enrolled (Active) Start date:02/09/2025 Enrollment date:02/09/2025 Related social drivers of health:Alcohol Use, Tobacco Use, Financial Resource Strain, Depression, Stress, Physical Activity, Food Insecurity, Transportation Needs, Utilities Continued Care and Services Coordination
== END 2025-07-05 11:29 | disposition home or self-care (01) ==
PROVIDERS: PCP Nurse Practitioner Family
DX: K59.9 Functional intestinal disorder, unspecified (principal)
CPT/HCPCS: 74018

== ENCOUNTER 2025-07-17 08:29 | Outpatient (CLI) | payer OTHER, SELFPAY ==
--- NOTE | 2025-07-17 08:36 | EST_ITS ---
Patient Info Name: Elham Bennett Age: 49 years : 1975 Gender: Female Ht: 65 in Wt: 126 lbs BSA: 1.62 m2 HR: 73 bpm BP: 113 / 76 mmHg Heart Rhythm: Sinus Rhythm Technical Quality: Good Exam Date: 07/17/2025 8:36 AM Patient Status: O Admit Date: 07/17/2025 Exam Type: CA stress herve w NM A regadenoson stress test was performed. Staff Referring Physician: Joellen Shepherd Attending Provider: Joellen Shepherd Summary 1. 1. Negative lexiscan stress test for ischemic ST changes by ECG criteria. 2. 2. Hypertensive response to lexiscan. 3. 3. Nuclear scan to follow and will be reported separately. Please correlate with it. History/Risk Factors Hypertension: Yes Tobacco Use: Current - Every Day If Any Current, Tobacco Type: Cigarettes If Current - Every Day \T\ Cigarettes, Amount: Heavy Tobacco Use (>=10/day) Protocol: LEXISCAN Stress ECG Details Stage: REST Duration (min): 0 min : 57 sec HR (bpm): 73 SBP (mmHg): 113 DBP (mmHg): 76 Stage: REST Duration (min): 4 min : 19 sec HR (bpm): 69 SBP (mmHg): 113 DBP (mmHg): 76 Stage: STAGE 1 Duration (min): 0 min : 45 sec HR (bpm): 75 SBP (mmHg): 113 DBP (mmHg): 76 Stage: RECOVERY Duration (min): 0 min : 14 sec HR (bpm): 83 SBP (mmHg): 113 DBP (mmHg): 76 Stage: RECOVERY Duration (min): 1 min : 14 sec HR (bpm): 92 SBP (mmHg): 113 DBP (mmHg): 76 Stage: RECOVERY Duration (min): 2 min : 14 sec HR (bpm): 90 SBP (mmHg): 204 DBP (mmHg): 63 Stage: RECOVERY Duration (min): 3 min : 14 sec HR (bpm): 90 SBP (mmHg): 122 DBP (mmHg): 32 Stage: RECOVERY Duration (min): 4 min : 14 sec HR (bpm): 92 SBP (mmHg): 122 DBP (mmHg): 32 Stage: RECOVERY Duration (min): 5 min : 14 sec HR (bpm): 91 SBP (mmHg): 145 DBP (mmHg): 60 Stage: RECOVERY Duration (min): 6 min : 14 sec HR (bpm): 91 SBP (mmHg): 145 DBP (mmHg): 60 Stage: RECOVERY Duration (min): 6 min : 19 sec HR (bpm): 91 SBP (mmHg): 145 DBP (mmHg): 60 Rest HR: 69 bpm Peak HR: 94 bpm Rest Sys BP: 113 mmHg Peak Sys BP: 204 mmHg Max Pred HR: 171 bpm % Max Pred HR: 55 % Target HR: 145 bpm Max RPP: 19,176 bpm*mmHg BP Response: Patient exhibited a hypertensive response with stress Termination Reason: Completed protocol Cardiac Symptoms: None Total Time: 0 min : 45 sec Rest Red BP: 76 mmHg Peak Red BP: 63 mmHg Total Dose: 0.4 mg Aminophylline Dose: 50 mg Resting ECG Sinus rhythm, minimal Q waves- inferior leads. Stress ECG None. Arrhythmias Occasional PVCs. Report Signatures
--- NOTE | 2025-07-17 13:08 | WPDCARIOSTRE ---
Nuclear Stress Test INDICATIONS Indications: Chest pain PROCEDURE Procedure Performed: Myocardial Perf Spect-Multi Procedure: Patient underwent a lexiscan stress test and immediately was injected with 32.4 mCi of cardiolyte. Multiple tomographic images were obtained. These are of good quality. There is a moderate size, moderate severity inferior perfusion defect with stress imaging. A separate resting images were obtained after patient was injected with 10.8 mCi of cardiolyte. Multiple tomographic images were obtained. These are of good quality. There is a moderate size, moderate severity inferior perfusion defect with rest imaging. CONCLUSION Conclusion: 1. Myocardial perfusion imaging demonstrating a fixed moderate size inferior perfusion defect suggestive of diaphragmatic attenuation artifact. 2. No evidence of reversible ischemia. 3. Left ventriculogram demonstrates normal measured ejection fraction of 82% with no wall motion abnormalities. 4. TID score 0.99 is not elevated.
== END 2025-07-17 08:30 | disposition home or self-care (01) ==
LOC: CHSCARD 08:31
PROVIDERS: PCP Nurse Practitioner Family; Visit Provider Nurse Practitioner Family
DX: R07.9 Chest pain, unspecified (principal); R42 Dizziness and giddiness
CPT/HCPCS: 78452; 93017; A9502; J0280; J2785